=== PATIENT | female | born 1945 | race Caucasian/White ===

== ENCOUNTER 2016-07-08 09:13 | Day surgery (SDC) | payer MEDICARE ==
[2016-07-03 11:29] VITALS: BMI 39.0
[~2016-07-08 09:13] MED LIST: LACTATED RINGERS 1,000 ML IV SCH; LIDOCAINE 1% 20 ML VIAL (10MG/ML) FOR IV START INTRADERMA PRN
[2016-07-08 10:21] VITALS: RESP 18; TEMP 98
[2016-07-08] MEDS ORDERED: LACTATED RINGERS 1,000 ML IV ONE (10:21)
[2016-07-08] MEDS ORDERED: LIDOCAINE 1% 20 ML VIAL (10MG/ML) FOR IV START INTRADERMA ONE (10:21)
[2016-07-08 10:47] LABS: Glucose,Whole Blood 94 mg/dL (75-99)
[2016-07-08] MEDS ORDERED: PROPOFOL 10 MG/ML 20 ML VIAL IV ONE (10:48)
[2016-07-08] MEDS ORDERED: LIDOCAINE 1% INJ 10MG/ML (20 ML MDV) ONE (10:48)
--- NOTE | 2016-07-08 11:02 | P.PCN ---
Date of Procedure: 07/08/16 Procedure(s) Performed: BRIEF HISTORY: Patient is a 70-year-old, pleasant, white female scheduled for an upper endoscopy as a part of evaluation of long-standing history of GERD and dysphagia to solids intermittently for the last 2 months duration. She has been on Prilosec 20 mg twice daily despite which remains symptomatic. Hence she is scheduled for an upper endoscopy with possible dilation today. PROCEDURE PERFORMED: Esophagogastroduodenoscopy with biopsy. PREOPERATIVE DIAGNOSIS: GERD/Dysphagia. IV sedation per anesthesia. PROCEDURE: After informed consent was obtained, the patient was brought into the endoscopy unit. IV sedation was administered by Anesthesia under continuous monitoring. Initially the Olympus GIF-140 video endoscope was inserted into the mouth. Esophagus intubated without any difficulty. It was gradually advanced into the stomach and duodenum and carefully examined. The bulb and the second part of the duodenum appeared normal. The scope at this time was withdrawn to the stomach, adequately insufflated with air, and upon careful examination, mucosa of the antrum had mild gastritis and biopsies were done from this area. The body, cardia and the fundus appeared normal. The scope was then withdrawn into the esophagus. The GE junction was located at 39 cm from the incisors. The esophagus appeared normal. There were no erosions or ulcerations seen. There was no evidence of esophageal stricture. Biopsies were done from the distal esophagus and the patient tolerated the procedure well. IMPRESSION: 1. Normal-appearing esophagus with no evidence of esophagitis or esophageal stricture. 2. Mild antral gastritis. RECOMMENDATIONS: The findings of this examination were discussed with the patient as well as a family. She was advised to follow with the biopsy results. She will continue with omeprazole 20 mg twice daily and follow antireflux measures.
[2016-07-08 11:31] LABS: Glucose,Whole Blood 91 mg/dL (75-99)
[2016-07-08 11:51] VITALS: BP 136/78; PULSE 69
== END 2016-07-08 12:12 | disposition home or self-care (01) ==
LOC: ORWHC2ENDO 09:13
PROVIDERS: ATTEND Internal Medicine Gastroenterology
DX: K21.0 Gastro-esophageal reflux disease with esophagitis (principal); K29.50 Unspecified chronic gastritis without bleeding; R13.10 Dysphagia, unspecified; I11.0 Hypertensive heart disease with heart failure; I50.9 Heart failure, unspecified; F32.9 Major depressive disorder, single episode, unspecified; Z79.82 Long term (current) use of aspirin; Z79.01 Long term (current) use of anticoagulants; Z79.891 Long term (current) use of opiate analgesic; Z79.899 Other long term (current) drug therapy; Z88.6 Allergy status to analgesic agent; Z88.1 Allergy status to other antibiotic agents; Z88.5 Allergy status to narcotic agent; Z88.8 Allergy status to other drugs, medicaments and biological substances
CPT/HCPCS: 88305; 88342; 43239; J2001; J2704

== ENCOUNTER → 2016-08-05 | Outpatient (CLI) | payer MEDICARE ==
[~2016-08-05] MED LIST changes: +DENOSUMAB 60 MG/ML 1 ML SYRINGE SQ ONE; -LACTATED RINGERS 1,000 ML IV SCH; -LIDOCAINE 1% 20 ML VIAL (10MG/ML) FOR IV START INTRADERMA PRN
[2016-08-05 15:13] VITALS: BP 136/74; PULSE 60; RESP 16; TEMP 98.5
== END | disposition home or self-care (01) ==
LOC: PROCWHC3 14:21
PROVIDERS: ATTEND Internal Medicine
DX: M81.0 Age-related osteoporosis without current pathological fracture (principal)
CPT/HCPCS: 96372; J0897

== ENCOUNTER → 2016-09-25 | Outpatient (CLI) | payer MEDICARE ==
--- NOTE | 2016-09-25 13:43 | US ---
EXAMINATION TYPE: US kidneys/renal and bladder DATE OF EXAM: 09/25/2016 COMPARISON: US CLINICAL HISTORY: M54 Back Pain. EXAM MEASUREMENTS: Right Kidney: 10.1 x 3.3 x 4.5 cm Left Kidney: 10.3 x 4.2 x 3.5 cm Right Kidney: No hydronephrosis or masses seen Left Kidney: No hydronephrosis or masses seen Bladder: wnl Bilateral Jets seen: Yes There is no evidence for hydronephrosis at this point in time. No nephrolithiasis is seen. No anaid s are identified. The urinary bladder is anechoic. Bilateral ureteral jets are seen. IMPRESSION: No distinct abnormality seen
--- NOTE | 2016-09-25 14:20 | US ---
EXAMINATION TYPE: US pelvic limited DATE OF EXAM: 09/25/2016 COMPARISON: NONE CLINICAL HISTORY: R10.2 Pelvic Pain. Partial hystectomy 1985. No abnormalities visualized. Bilateral ovaries not seen due to bowel gas. Hysterectomy changes are noted. No evidence for vaginal cuff mass. The ovaries are poorly visualized. No adnexal masses seen. IMPRESSION: Postoperative changes of the pelvis
== END | disposition home or self-care (01) ==
LOC: RADUSWWP 11:36
PROVIDERS: ATTEND Internal Medicine
DX: M54.9 Dorsalgia, unspecified (principal); R10.2 Pelvic and perineal pain; Z90.710 Acquired absence of both cervix and uterus
CPT/HCPCS: 76770; 76857

== ENCOUNTER 2017-01-10 13:53 | Emergency (ER) | payer MEDICARE ==
[2017-01-10 14:06] VITALS: BP 122/63; PULSE 78; RESP 18; TEMP 97.8
--- NOTE | 2017-01-10 14:50 | XR ---
EXAMINATION TYPE: XR foot complete LT DATE OF EXAM: 01/10/2017 CLINICAL HISTORY: Trauma injury 2 days ago with pain and swelling. TECHNIQUE: Frontal, lateral, and oblique images of the left foot are obtained. COMPARISON: None FINDINGS: Osseous structures are demineralized which is noted to lower radiographic sensitivity. The re is mild to moderate diffuse subcutaneous edema with more focal severe soft tissue swelling along d orsal surface midfoot level overlying the metatarsals. No acute fracture or dislocation is clearly ev ident. Some flexion in the toes makes evaluation at this level suboptimal. There is moderate to large size inferior calcaneal spur. There is cystic change probable geode in the middle cuneiform noted. IMPRESSION: There is no acute fracture or dislocation in the left foot.
--- NOTE | 2017-01-10 15:15 | ED ---
Lower Extremity Injury HPI - General Chief Complaint: Extremity Injury, Lower Stated Complaint: Foot Injury Time Seen by Provider: 01/10/17 14:07 Source: patient Mode of arrival: EMS Limitations: no limitations - History of Present Illness Initial Comments: Patient is a 71-year-old female presenting to the emergency department with chief complaint of left foot pain. Patient states she dropped a digital camera on her foot 4 days ago and has been having pain and swelling to her dorsal left foot since. Patient states that she is normally wheelchair- bound but is able to pivot. Patient states it hurts to put pressure on her left forefoot but she is able to ambulate standing on her heel. Patient reports previous history of fracture to her left great toe and second toe. MD Complaint: foot injury (Left dorsal midfoot ) Type of Injury: blunt Place: home Severity: moderate Severity scale (1-10): 5 Improves With: immobilization Worsens With: weight bearing, palpation Context: direct blow Associated Symptoms: swelling, able to partially bear weight Treatments Prior to Arrival: cold therapy - Related Data Home Medications Medication Instructions Recorded Confirmed Allopurinol [Zyloprim] 300 mg PO DAILY 08/21/14 07/03/16 Aspirin EC [Ecotrin] 325 mg PO DAILY 08/21/14 07/03/16 Calcium Carbonate/Vitamin D3 1 tab PO BID 08/21/14 07/08/16 [Calcium 600-Vit D3 400 Tablet] Cyclobenzaprine [Flexeril] 10 mg PO TID PRN 08/21/14 07/03/16 Furosemide [Lasix] 40 mg PO DAILY 08/21/14 07/03/16 LORazepam [Ativan] 0.5 mg PO BID 08/21/14 07/03/16 Omeprazole [PriLOSEC] 20 mg PO AC-BID 08/21/14 07/03/16 PARoxetine HCL [Paxil] 30 mg PO BID 08/21/14 07/03/16 Potassium Chloride [Klor-Con 20] 20 meq PO DAILY 08/21/14 07/03/16 diphenhydrAMINE HCL [Benadryl] 25 mg PO HS 08/21/14 07/03/16 Lisinopril [Zestril] 20 mg PO 0800,1600 11/17/15 07/03/16 Metoprolol Tartrate [Lopressor] 25 mg PO BID 11/17/15 07/03/16 Morphine Sulfate ER [Ms Contin] 30 mg PO BID 11/17/15 07/03/16 Multivitamins, Thera [Multivitamin 1 tab PO DAILY 11/17/15 07/03/16 (formulary)] Vit A/Vit C/Vit E/Zinc/Copper 1 cap PO DAILY 11/17/15 07/08/16 [ICAPS SOFTGEL] Denosumab [Prolia] 60 mg SQ Q180D 07/03/16 07/03/16 Warfarin [Coumadin] 2.5 mg PO Q2D 07/03/16 07/03/16 amLODIPine [Norvasc] 5 mg PO QAM 07/03/16 07/03/16 Allergies Allergy/AdvReac Type Severity Reaction Status Date / Time adhesive Allergy Rash/Hives Verified 01/10/17 14:06 carbamazepine [From Tegretol] Allergy Rash/Hives Verified 01/10/17 14:06 carisoprodol [From Soma] Allergy lowers b/p Verified 01/10/17 14:06 quickly & passes out doxycycline calcium Allergy Rash/Hives Verified 01/10/17 14:06 [From Vibramycin] doxycycline hyclate Allergy Rash/Hives,vomited Verified 01/10/17 14:06 [From Vibramycin] blood doxycycline monohydrate Allergy Rash/Hives,vomited Verified 01/10/17 14:06 [From Vibramycin] blood erythromycin base Allergy Rash/Hives,vomited Verified 01/10/17 14:06 [From E-Mycin] blood hydrocodone bitartrate Allergy abdominal Verified 01/10/17 14:06 [From Vicodin] pain, diarrhea NSAIDS (Non-Steroidal Allergy Swelling Verified 01/10/17 14:06 Anti-Inflamma piroxicam [From Feldene] Allergy Swelling Verified 01/10/17 14:06 corn [Percival] AdvReac Diarrhea Verified 01/10/17 14:06 milk AdvReac Diarrhea Verified 01/10/17 14:06 wheat AdvReac Diarrhea Verified 01/10/17 14:06 Review of Systems ROS Statement: Those systems with pertinent positive or pertinent negative responses have been documented in the HPI. ROS Other: All systems not noted in ROS Statement are negative. Past Medical History Past Medical History: Eye Disorder, GERD/Reflux, Hypertension, Osteoarthritis ( OA), Pulmonary Embolus (PE) Additional Past Medical History / Comment(s): vomiting after swallowing,DDD, GASTROENTERITIS, H-PYLORI,GOUT,TMJ,BULGING DISCS, left eye blindness-macular degeneration los eyes, HX MULTIPLE FALLS-able to stand to transfer w/ walker, chronic UTIs,osteoporosis,hypoglycemia History of Any Multi-Drug Resistant Organisms: VRE Date of last positivie culture/infection: Knee wound august 2013 MDRO Source:: R knee Past Surgical History: Hysterectomy, Joint Replacement, Orthopedic Surgery, Tubal Ligation Additional Past Surgical History / Comment(s): STERNOCLEIDOMASTOIDECTOMY(RT), RT SHOULDER ROTATOR CUFF, RECTOCELE/CYSTOCELE, RT FOOT-DOWELL'S NEUROMA/HAMMER TOE, LT OUTER FOREARM ARTHROCOPE AND SHORTENING LEFT ULNA-PLATE AND SCREWS INSERTED, RT. WRIST BUNDLE OF NERVES , RT KNee ARTHROSCOP/REALIGNMENT OF TENDON/TIBIA/KNEE CAP,,07-20-13 RT KNEE REPLACEMENT THEN 08-10-13 LARGE HEMATOMA REMOVED,LOS VITRECTOMIES,LOS CATARACT, RT FEMUR. BENIGN TUMOR REMOVED, LT FOOT BONE SPUR Past Anesthesia/Blood Transfusion Reactions: Previous Problems w/ Anesthesia, Postoperative Nausea & Vomiting (PONV) Additional Past Anesthesia/Blood Transfusion Reaction / Comment(s): no complications with prior blood transfusion Past Psychological History: Anxiety, Depression Smoking Status: Never smoker - Past Family History Brother(s) Family Medical History: Cancer, Congestive Heart Failure (CHF) Additional Family Medical History / Comment(s): heart problems,CABG,oral CA, pacemaker/defib Father Family Medical History: Congestive Heart Failure (CHF), Hyperlipidemia, Hypertension, Myocardial Infarction (NC) Mother Family Medical History: Congestive Heart Failure (CHF) Additional Family Medical History / Comment(s): PACEMAKER living at age 93 General Exam Limitations: no limitations General appearance: alert, in no apparent distress Head exam: Present: atraumatic, normocephalic, normal inspection Eye exam: Present: normal appearance ENT exam: Present: normal exam, mucous membranes moist, normal external ear exam Neck exam: Present: normal inspection, full ROM. Absent: tenderness, lymphadenopathy Respiratory exam: Present: normal lung sounds bilaterally. Absent: respiratory distress, wheezes, rales, rhonchi, chest wall tenderness Cardiovascular Exam: Present: regular rate, normal rhythm, normal heart sounds. Absent: systolic murmur GI/Abdominal exam: Present: soft, normal bowel sounds. Absent: distended, tenderness Left Lower Leg exam: Present: normal inspection, full ROM. Absent: tenderness, swelling Ankle exam: Present: normal inspection, full ROM. Absent: tenderness, swelling Foot/Toe exam: Present: full ROM, tenderness, swelling. Absent: ecchymosis, calcaneal tenderness, tenderness at base of 5th metatarsal Neurovascular tendon exam: Present: no vascular compromise. Absent: pulse deficit, abnormal cap refill, motor deficit, sensory deficit, tendon deficit, extremity cold to touch, abnormal 2-point discrimination, decreased fine/light touch, foot drop, significant pain with passive ROM of distal joint Gait: observed and limited by pain Neurological exam: Present: alert, oriented X3, CN II-XII intact. Absent: motor sensory deficit (No focal deficits noted.) Psychiatric exam: Present: normal affect, normal mood Skin exam: Present: warm, dry, intact Course Vital Signs 01/10/17 14:03 Temperature 97.8 F Pulse Rate 78 Respiratory 18 Rate Blood Pressure 122/63 O2 Sat by Pulse 97 Oximetry Medical Decision Making - Medical Decision Making Left foot contusion. X-ray without evidence of acute fracture or dislocation. Michael wrap applied. Patient instructed to follow-up with [facility] if pain persists. Patient agrees with treatment plan. - Radiology Data Radiology results: report reviewed X-ray left foot: No acute fracture or dislocation. Mild to moderate diffuse subcutaneous edema with more focal severe soft tissue swelling along the dorsal surface midfoot level overlying the metatarsals. Disposition Clinical Impression: Contusion of left foot Disposition: HOME SELF-CARE Condition: Good Instructions: Foot Contusion (ED) Additional Instructions: Apply ice to left foot 3-4 times a day alternating with heat, elevate as much as possible, continue Motrin or Tylenol for pain. Follow-up with orthopedic service and primary care physician as directed. Please return to the emergency department with any new worsening symptoms. Referrals: Gage Gastelum MD [Primary Care Provider] - 1-2 days Gabriel Rodriguez DO [Doctor of Osteopathic Medicine] - 1-2 days Time of Disposition: 15:14
== END 2017-01-10 15:47 | disposition home or self-care (01) ==
LOC: EC 13:53
DX: S90.32XA Contusion of left foot, initial encounter (principal); K21.9 Gastro-esophageal reflux disease without esophagitis; I10 Essential (primary) hypertension; M19.90 Unspecified osteoarthritis, unspecified site; Z86.711 Personal history of pulmonary embolism; F32.9 Major depressive disorder, single episode, unspecified; F41.9 Anxiety disorder, unspecified; Z79.82 Long term (current) use of aspirin; Z79.891 Long term (current) use of opiate analgesic; Z79.01 Long term (current) use of anticoagulants; Z79.899 Other long term (current) drug therapy; Z88.1 Allergy status to other antibiotic agents; Z91.011 Allergy to milk products; Z91.018 Allergy to other foods; Z88.5 Allergy status to narcotic agent; Z88.6 Allergy status to analgesic agent; Z88.8 Allergy status to other drugs, medicaments and biological substances; Z91.048 Other nonmedicinal substance allergy status; W22.8XXA Striking against or struck by other objects, initial encounter
CPT/HCPCS: 99283

== ENCOUNTER → 2017-10-01 | Outpatient (CLI) | payer MEDICARE ==
[2017-10-01 13:53] VITALS: BP 130/74; PULSE 62; RESP 16; TEMP 98
== END ==
LOC: PROCWHC3 13:21
PROVIDERS: ATTEND Internal Medicine
DX: M81.0 Age-related osteoporosis without current pathological fracture (principal)
CPT/HCPCS: 96372; J0897

== ENCOUNTER → 2017-11-15 | Outpatient (CLI) | payer MEDICARE ==
--- NOTE | 2017-11-15 14:59 | XR ---
EXAMINATION TYPE: XR wrist complete RT, XR hand complete RT DATE OF EXAM: 11/15/2017 CLINICAL HISTORY: Hitting injury with pain TECHNIQUE: Frontal, lateral, and oblique images of the right hand and wrist are obtained. Fourth sca phoid view right wrist is acquired. COMPARISON: None FINDINGS: Demineralization is present. There is no acute fracture/dislocation evident in the right w rist. Subchondral cystic change in the lunate bone is present. There is moderate joint space with mil d osteophyte formation at distal scaphoid articulation with the trapezium. The overlying soft tissue appears unremarkable. Images of right hand show lateral positioning or subluxation with narrowing and subchondral cystic ch delmis at third PIP joint with moderate focal soft tissue swelling. There is additional mild to moderat e soft tissue swelling throughout the PIP joints. There is moderate narrowing third DIP joint. There is slight medial positioning of distal phalanx at the fifth DIP joint. Mild spurring joint space loss at base of first metacarpal is present. There is relative preservation metacarpal phalangeal joints. IMPRESSION: There is no acute fracture or dislocation in the right hand or wrist. Chronic changes no yogi as detailed above.
== END | disposition home or self-care (01) ==
LOC: RADXRMAIN 14:17
PROVIDERS: ATTEND Internal Medicine
DX: M25.841 Other specified joint disorders, right hand (principal)

== ENCOUNTER 2018-02-01 22:15 | Inpatient (IN) | payer MEDICARE ==
[2018-02-01] MEDS ORDERED: ACETAMINOPHEN TAB 325 MG TAB PO STA (22:28)
[2018-02-01] MEDS: SODIUM CHLORIDE 0.9% 500 ML 500 ML IV SCH (22:51)
[2018-02-01 23:05] LABS: Basophils % (A) 0 %; Eosinophils # (A) 0.1 k/uL (0-0.7); Eosinophils % (A) 1 %; HCT 38.4 % (34.0-46.0); HGB 12.7 gm/dL (11.4-16.0); Lymphocytes # (A) 1.2 k/uL (1.0-4.8); Lymphocytes % (A) 13 %; MCH 31.5 pg (25.0-35.0); MCHC 33.1 g/dL (31.0-37.0); MCV 95.2 fL (80.0-100.0); Mean Platelet Volume 6.6; Monocytes # (A) 0.5 k/uL (0-1.0); Monocytes % (A) 6 %; Neutrophils % (A) 78 %; Platelet Count 277 k/uL (150-450); RBC 4.03 m/uL (3.80-5.40); RDW 14.3 % (11.5-15.5)
--- NOTE | 2018-02-01 23:06 | ED ---
Extremity Problem HPI - General Chief complaint: Extremity Problem,Nontraumatic Stated complaint: Leg pain Time Seen by Provider: 02/01/18 22:28 Source: patient, EMS Mode of arrival: EMS Limitations: no limitations - History of Present Illness Initial comments: Maria Teresa is a 72-year-old morbidly obese, minimally mobile female who presents the emergency department today for evaluation of redness and swelling of her right lower extremity. Patient reports she started having some discomfort in the right lower extremity last week, she is evaluated by her primary care physician and given an topical lotion for treatment. She reports that since that time the leg is become more tender, and red. Today she noticed that it appeared to be infected, and addition she developed a fever and was feeling unwell. Bedtime decision was made to transfer her to the ER for further evaluation and management. She is a very complicated orthopedic history including any replacement to the right knee with multiple subsequent repeat surgeries due to infection, and decreased ability to ambulate secondary to the complicated surgeries. Surgeries occurred in 2013. Patient has had decreased mobility since that time. - Related Data Home Medications Medication Instructions Recorded Confirmed Allopurinol [Zyloprim] 300 mg PO DAILY 08/21/14 02/01/18 Aspirin EC [Ecotrin] 325 mg PO DAILY 08/21/14 02/01/18 Calcium Carbonate/Vitamin D3 1 tab PO BID 08/21/14 02/01/18 [Calcium 600-Vit D3 400 Tablet] Furosemide [Lasix] 40 mg PO DAILY 08/21/14 02/01/18 LORazepam [Ativan] 0.5 mg PO BID 08/21/14 02/01/18 Potassium Chloride [Klor-Con 20] 20 meq PO DAILY 08/21/14 02/01/18 diphenhydrAMINE HCL [Benadryl] 25 mg PO HS 08/21/14 02/01/18 Lisinopril [Zestril] 20 mg PO BID@0800,1600 11/17/15 02/01/18 Metoprolol Tartrate [Lopressor] 25 mg PO BID 11/17/15 02/01/18 Multivitamins, Thera [Multivitamin 1 tab PO DAILY 11/17/15 02/01/18 (formulary)] Vit A/Vit C/Vit E/Zinc/Copper 1 cap PO DAILY 11/17/15 02/01/18 [ICAPS SOFTGEL] Denosumab [Prolia] 60 mg SQ Q180D 07/03/16 02/01/18 Warfarin [Coumadin] 2.5 mg PO Q48H 07/03/16 02/01/18 amLODIPine [Norvasc] 5 mg PO QAM 07/03/16 02/01/18 Famotidine [Pepcid] 20 mg PO BID 02/01/18 02/01/18 Ibuprofen [Motrin] 400 mg PO Q6HR PRN 02/01/18 02/01/18 Morphine Sulfate ER [Ms Contin] 30 mg PO Q12HR 02/01/18 02/01/18 Pantoprazole [Protonix] 40 mg PO BID 02/01/18 02/01/18 Allergies Allergy/AdvReac Type Severity Reaction Status Date / Time adhesive Allergy Rash/Hives Verified 02/01/18 22:34 carbamazepine [From Tegretol] Allergy Rash/Hives Verified 02/01/18 22:34 carisoprodol [From Soma] Allergy lowers b/p Verified 02/01/18 22:34 quickly & passes out doxycycline calcium Allergy Rash/Hives Verified 02/01/18 22:34 [From Vibramycin] doxycycline hyclate Allergy Rash/Hives,vomited Verified 02/01/18 22:34 [From Vibramycin] blood doxycycline monohydrate Allergy Rash/Hives,vomited Verified 02/01/18 22:34 [From Vibramycin] blood erythromycin base Allergy Rash/Hives,vomited Verified 02/01/18 22:34 [From E-Mycin] blood hydrocodone bitartrate Allergy abdominal Verified 02/01/18 22:34 [From Vicodin] pain, diarrhea NSAIDS (Non-Steroidal Allergy Swelling Verified 02/01/18 22:34 Anti-Inflamma piroxicam [From Feldene] Allergy Swelling Verified 02/01/18 22:34 ciprofloxacin [From Cipro] AdvReac Nausea & Verified 02/01/18 22:34 Vomiting corn [[place]] AdvReac Diarrhea Verified 02/01/18 22:34 milk AdvReac Diarrhea Verified 02/01/18 22:34 wheat AdvReac Diarrhea Verified 02/01/18 22:34 Review of Systems ROS Statement: Those systems with pertinent positive or pertinent negative responses have been documented in the HPI. ROS Other: All systems not noted in ROS Statement are negative. Past Medical History Past Medical History: Eye Disorder, GERD/Reflux, Hypertension, Osteoarthritis ( OA), Pulmonary Embolus (PE) Additional Past Medical History / Comment(s): vomiting after swallowing,DDD, GASTROENTERITIS, H-PYLORI,GOUT,TMJ,BULGING DISCS, left eye blindness-macular degeneration los eyes, HX MULTIPLE FALLS-able to stand to transfer w/ walker, chronic UTIs,osteoporosis,hypoglycemia History of Any Multi-Drug Resistant Organisms: VRE Date of last positivie culture/infection: Knee wound august 2013 MDRO Source:: R knee Past Surgical History: Hysterectomy, Joint Replacement, Orthopedic Surgery, Tubal Ligation Additional Past Surgical History / Comment(s): STERNOCLEIDOMASTOIDECTOMY(RT), RT SHOULDER ROTATOR CUFF, RECTOCELE/CYSTOCELE, RT FOOT-DOWELL'S NEUROMA/HAMMER TOE, LT OUTER FOREARM ARTHROCOPE AND SHORTENING LEFT ULNA-PLATE AND SCREWS INSERTED, RT. WRIST BUNDLE OF NERVES , RT KNee ARTHROSCOP/REALIGNMENT OF TENDON/TIBIA/KNEE CAP,,07-20-13 RT KNEE REPLACEMENT THEN 08-10-13 LARGE HEMATOMA REMOVED,LOS VITRECTOMIES,LOS CATARACT, RT FEMUR. BENIGN TUMOR REMOVED, LT FOOT BONE SPUR Past Anesthesia/Blood Transfusion Reactions: Previous Problems w/ Anesthesia, Postoperative Nausea & Vomiting (PONV) Additional Past Anesthesia/Blood Transfusion Reaction / Comment(s): no complications with prior blood transfusion Past Psychological History: Anxiety, Depression Smoking Status: Never smoker Past Alcohol Use History: None Reported Past Drug Use History: None Reported - Past Family History Brother(s) Family Medical History: Cancer, Congestive Heart Failure (CHF) Additional Family Medical History / Comment(s): heart problems,CABG,oral CA, pacemaker/defib Father Family Medical History: Congestive Heart Failure (CHF), Hyperlipidemia, Hypertension, Myocardial Infarction ([place]) Mother Family Medical History: Congestive Heart Failure (CHF) Additional Family Medical History / Comment(s): PACEMAKER living at age 93 General Exam - General Exam Comments Initial Comments: GENERAL: Patient is well-developed and well-nourished. Patient appears flushed and is warm to the touch HENT: Normocephalic, Atraumatic. Neck is soft and supple. No significant lymphadenopathy is noted. Oropharynx is clear. Moist mucous membranes. Neck has full range of motion without eliciting any pain. EYES: The sclera were anicteric and conjunctiva were pink and moist. PULMONARY: Unlabored respirations. Decreased breath sounds bilateral bases secondary to body habitus CARDIOVASCULAR: There is a regular rate and rhythm ABDOMEN: Soft and nontender with normal bowel sounds. SKIN: Right lower extremity with erythema and induration, abscess petechia present, cellulitis is circumferential of the lower two thirds of the calf NEUROLOGIC: Patient is alert and oriented x3. MUSCULOSKELETAL: Decreased range of motion of bilateral lower extremity secondary to osteoarthritis and chronic pain LYMPHATICS: No significant lymphadenopathy is noted PSYCHIATRIC: Normal psychiatric evaluation. Limitations: no limitations Limitations: no limitations Course Vital Signs 02/01/18 02/01/18 22:18 23:34 Temperature 100.6 F H Pulse Rate 89 80 Respiratory 16 16 Rate Blood Pressure 137/79 142/73 O2 Sat by Pulse 94 L 93 L Oximetry Medical Decision Making - Medical Decision Making The patient was seen and evaluated, history was obtained from the patient and review of medical record. Physical exam reveals cellulitis is line review of vital signs reveal that the patient is febrile, HR in 80-90s but patient is on lopressor, patient does report that her last Tylenol was 1000 mg at 4 PM. A sepsis workup was ordered Borders of cellulitis marked Urinalysis did reveal urinary tract infection, patient has been treated with broad-spectrum antibiotics for her cellulitis. Labs with no significant abnormalities, however given the patient's multiple comorbidities, presence of lymphedema, and vital signs upon arrival I do feel she warrants admission for further monitoring. Patient care was discussed with her primary care physician Dr. Gastelum who accepts the admission for sepsis secondary to cellulitis. - Lab Data Result diagrams: 02/01/18 22:40 02/01/18 22:40 Lab Results 02/01/18 02/01/18 02/01/18 Range/Units 22:36 22:40 22:40 WBC 9.0 (3.8-10.6) k/uL RBC 4.03 (3.80-5.40) m/uL Hgb 12.7 (11.4-16.0) gm/dL Hct 38.4 (34.0-46.0) % MCV 95.2 (80.0-100.0) fL MCH 31.5 (25.0-35.0) pg MCHC 33.1 (31.0-37.0) g/dL RDW 14.3 (11.5-15.5) % Plt Count 277 (150-450) k/uL Neutrophils % 78 % Lymphocytes % 13 % Monocytes % 6 % Eosinophils % 1 % Basophils % 0 % Neutrophils # 7.0 (1.3-7.7) k/uL Lymphocytes # 1.2 (1.0-4.8) k/uL Monocytes # 0.5 (0-1.0) k/uL Eosinophils # 0.1 (0-0.7) k/uL Basophils # 0.0 (0-0.2) k/uL PT (9.0-12.0) sec INR (<1.2) APTT (22.0-30.0) sec Sodium 138 (137-145) mmol/L Potassium 3.9 (3.5-5.1) mmol/L Chloride 101 (98-107) mmol/L Carbon Dioxide 28 (22-30) mmol/L Anion Gap 9 mmol/L BUN 15 (7-17) mg/dL Creatinine 0.87 (0.52-1.04) mg/dL Est GFR (CKD-EPI)AfAm 77 (>60 ml/min/1.73 sqM) Est GFR (CKD-EPI)NonAf 67 (>60 ml/min/1.73 sqM) Glucose 99 (74-99) mg/dL Plasma Lactic Acid Ananth (0.7-2.0) mmol/L Calcium 9.0 (8.4-10.2) mg/dL Total Bilirubin 0.5 (0.2-1.3) mg/dL AST 23 (14-36) U/L ALT 19 (9-52) U/L Alkaline Phosphatase 90 (38-126) U/L Total Creatine Kinase (30-135) U/L CK-MB (CK-2) (0.0-2.4) ng/mL CK-MB (CK-2) Rel Index Troponin I (0.000-0.034) ng/mL Total Protein 7.1 (6.3-8.2) g/dL Albumin 4.0 (3.5-5.0) g/dL Urine Color Yellow Urine Appearance Cloudy H (Clear) Urine pH 6.5 (5.0-8.0) Ur Specific [place] 1.018 (1.001-1.035) Urine Protein Negative (Negative) Urine Glucose (UA) Negative (Negative) Urine Ketones Negative (Negative) Urine Blood Trace H (Negative) Urine Nitrite Positive H (Negative) Urine Bilirubin Negative (Negative) Urine Urobilinogen <2.0 (<2.0) mg/dL Ur Leukocyte Esterase Moderate H (Negative) Urine RBC 3 (0-5) /hpf Urine WBC 20 H (0-5) /hpf Ur Squamous Epith Cells 2 (0-4) /hpf Urine Bacteria Occasional H (None) /hpf 02/01/18 02/01/18 02/01/18 Range/Units 22:40 22:40 22:40 WBC (3.8-10.6) k/uL RBC (3.80-5.40) m/uL Hgb (11.4-16.0) gm/dL Hct (34.0-46.0) % MCV (80.0-100.0) fL MCH (25.0-35.0) pg MCHC (31.0-37.0) g/dL RDW (11.5-15.5) % Plt Count (150-450) k/uL Neutrophils % % Lymphocytes % % Monocytes % % Eosinophils % % Basophils % % Neutrophils # (1.3-7.7) k/uL Lymphocytes # (1.0-4.8) k/uL Monocytes # (0-1.0) k/uL Eosinophils # (0-0.7) k/uL Basophils # (0-0.2) k/uL PT 16.1 H (9.0-12.0) sec INR 1.8 H (<1.2) APTT 31.5 H (22.0-30.0) sec Sodium (137-145) mmol/L Potassium (3.5-5.1) mmol/L Chloride (98-107) mmol/L Carbon Dioxide (22-30) mmol/L Anion Gap mmol/L BUN (7-17) mg/dL Creatinine (0.52-1.04) mg/dL Est GFR (CKD-EPI)AfAm (>60 ml/min/1.73 sqM) Est GFR (CKD-EPI)NonAf (>60 ml/min/1.73 sqM) Glucose (74-99) mg/dL Plasma Lactic Acid [place] 1.3 (0.7-2.0) mmol/L Calcium (8.4-10.2) mg/dL Total Bilirubin (0.2-1.3) mg/dL AST (14-36) U/L ALT (9-52) U/L Alkaline Phosphatase (38-126) U/L Total Creatine Kinase 39 (30-135) U/L CK-MB (CK-2) <0.2 (0.0-2.4) ng/mL CK-MB (CK-2) Rel Index Troponin I <0.012 (0.000-0.034) ng/mL Total Protein (6.3-8.2) g/dL Albumin (3.5-5.0) g/dL Urine Color Urine Appearance (Clear) Urine pH (5.0-8.0) Ur Specific [place] (1.001-1.035) Urine Protein (Negative) Urine Glucose (UA) (Negative) Urine Ketones (Negative) Urine Blood (Negative) Urine Nitrite (Negative) Urine Bilirubin (Negative) Urine Urobilinogen (<2.0) mg/dL Ur Leukocyte Esterase (Negative) Urine RBC (0-5) /hpf Urine WBC (0-5) /hpf Ur Squamous Epith Cells (0-4) /hpf Urine Bacteria (None) /hpf - EKG Data -: EKG Interpreted by Me EKG Comments: EKG obtained at 11 PM, rate is 89, rhythm is sinus, is normal axis, normal intervals, no acute ST elevations or depressions no evidence of acute ischemia or infarction. Disposition Clinical Impression: Cellulitis, Lower extremity edema, Inability to ambulate due to knee, UTI ( urinary tract infection) Disposition: ADMITTED IP TO THIS HOSP Referrals: Gage Gastelum MD [Primary Care Provider] - 1-2 days
[2018-02-01] MEDS ORDERED: VANCOMYCIN IV PER PHARMACY 1 EACH MISC MISCELLANE PRN (23:08)
[2018-02-01] MEDS ORDERED: CEFEPIME 2 GM in SODIUM CHLORIDE 0.9% 50 ML IVPB STA (23:08)
[2018-02-01] MEDS ORDERED: VANCOMYCIN 1,750 MG in SODIUM CHLORIDE 0.9% 500 ML 500 ML IVPB STA (23:10)
[2018-02-01 23:13] LABS: Appearance,Urine Cloudy (Clear); Bacteria,Urine Occasional /hpf; Bilirubin,Urine Negative (Negative); Blood,Urine Trace (Negative); Color,Urine Yellow; Glucose,Urine (UA) Negative (Negative); Ketones,Urine Negative (Negative); Leukocyte Esterase,Urine Moderate (Negative); Nitrite,Urine Positive (Negative); PH, Urine 6.5 (5.0-8.0); Protein,Urine Negative (Negative); RBC,Urine 3 /hpf (0-5); Specific Gravity,Urine 1.018 (1.001-1.035); Squamous Epithelial Cell,Urine 2 /hpf (0-4); Urobilinogen,Urine <2.0 mg/dL (<2.0); WBC,Urine 20 /hpf (0-5)
[2018-02-01 23:17] LABS: INR 1.8 (<1.2); Partial Thromboplastin Time 31.5 sec (22.0-30.0); Prothrombin Time 16.1 sec (9.0-12.0)
[2018-02-01 23:26] LABS: Potassium 3.9 mmol/L (3.5-5.1)
[2018-02-01 23:27] LABS: Total Bilirubin 0.5 mg/dL (0.2-1.3); Total Protein 7.1 g/dL (6.3-8.2)
[2018-02-01 23:35] LABS: Creatine Kinase 39 U/L (30-135)
[2018-02-01 23:49] LABS: Creatine Kinase MB <0.2 ng/mL (0.0-2.4); Troponin I <0.012 ng/mL (0.000-0.034)
--- NOTE | 2018-02-02 00:06 | XR ---
EXAMINATION TYPE: XR chest 2V DATE OF EXAM: 02/01/2018 COMPARISON: 01/21/2017 HISTORY: Pain and swelling TECHNIQUE: Frontal and lateral views of the chest are obtained. FINDINGS: Heart is enlarged. There is no heart failure. Costophrenic angles are clear. Thoracic aort a is atheromatous. There are chest leads. There is spurring in the thoracic spine. IMPRESSION: No active cardiopulmonary disease. Cardiomegaly. There is clearing of the pleural reacti on and fluid at the lung bases compared to old exam.
[2018-02-02] MEDS: SODIUM CHLORIDE 0.9% 1,000 ML IV SCH ×3 (01:02→21:00)
[2018-02-02 04:12] VITALS: BMI 42.3
[2018-02-02] MEDS: ACETAMINOPHEN TAB 325 MG TAB PO PRN ×3 (06:14→21:04)
[2018-02-02] MEDS ORDERED: LOPERAMIDE 2 MG CAP PO PRN (08:13)
[2018-02-02] MEDS ORDERED: ACETAMINOPHEN TAB 325 MG TAB PO PRN (08:13)
[2018-02-02] MEDS ORDERED: WARFARIN 2.5 MG TAB PO SCH (08:15)
[2018-02-02] MEDS: CALCIUM CARB-VIT D 500MG-200UN 1 EACH TAB PO SCH ×2 (09:05→21:58)
[2018-02-02] MEDS: ISOSORBIDE MONONITRATE ER 30 MG TAB.ER.24H PO SCH (09:05)
[2018-02-02] MEDS: FUROSEMIDE 40 MG TAB PO SCH (09:05)
[2018-02-02] MEDS: ASPIRIN 325 MG TAB PO SCH (09:05)
[2018-02-02] MEDS: amLODIPine 5 MG TAB PO SCH (09:05)
[2018-02-02] MEDS: ALLOPURINOL 300 MG TAB PO SCH (09:05)
[2018-02-02] MEDS: POTASSIUM CHLORIDE ER 20 MEQ TAB.ER PO SCH (09:06)
[2018-02-02] MEDS: PARoxetine 10 MG TAB PO SCH (09:06)
[2018-02-02] MEDS: VIT A,C & E-LUTEIN-MINERALS 1 EACH TAB PO SCH (09:06)
[2018-02-02] MEDS: PRAVASTATIN SODIUM 20 MG TAB PO SCH (09:06)
[2018-02-02] MEDS: METOPROLOL TARTRATE 25 MG TAB PO SCH ×2 (09:06→21:03)
[2018-02-02] MEDS: MULTIVITAMINS, THERA 1 EACH TAB PO SCH (09:06)
[2018-02-02] MEDS: CYCLOBENZAPRINE 10 MG TAB PO PRN (09:06)
[2018-02-02] MEDS: LORazepam 0.5 MG TAB PO SCH ×2 (09:10→21:03)
--- NOTE | 2018-02-02 10:42 | P.HPIM ---
History of Present Illness H&P Date: 02/02/18 Chief Complaint: Right foot cellulitis This is a 72-year-old female patient who presented to the emergency room with complaints of right lower extremity redness and increased pain that has been occurring over the past week. Patient states she reported to her primary care provider was started on antibiotics. But pain and redness had significantly worse n. patient proceeded to the emergency department. Patient also reports she had elevated temperature last night at home Patient has a known past medical history of right knee replacement with possible repeat surgeries due to infection and decreased ability amylase secondary to the concave surgeries. Additional medical history includes PE which patient takes Coumadin.additional medical history includes GERD, essential hypertension, osteoarthritis, gout, macular degeneration and multiple orthor surgeries. X-ray completed in ER showing no active cardiopulmonary disease. Cardiomegaly. There is clearing of the pleural reaction and fluid at the lung bases compared to old exam. EKG completed showing normal sinus rhythm. Low voltage QRS cannot rule out anterior infarct, age undetermined. At this time patient denies chest pain or shortness of breath. Denies nausea vomiting or diarrhea. The patient denies any urinary burning or frequency. Urinary analysis showing moderate amount of leukocyte Estrace and positive nitrates. Patient started on Cefepime antibiotic. Blood and urine cultures have been ordered. Dr. Ramirez has been consulted for infectious disease. Review of Systems please refer to HPI otherwise unremarkable Past Medical History Past Medical History: Eye Disorder, GERD/Reflux, Hypertension, Osteoarthritis ( OA), Pulmonary Embolus (PE) Additional Past Medical History / Comment(s): DDD, gastroenteritis, h-pylori, gout, TMJ, bulging discs, left eye blind, macular degeneration BL eyes, multiple falls (not recent), transfers w/ walker to wheelchair, chronic UTI, osteoporosis, hypoglycemia. History of Any Multi-Drug Resistant Organisms: VRE Date of last positivie culture/infection: August 2013 MDRO Source:: Right knee Past Surgical History: Hysterectomy, Joint Replacement, Orthopedic Surgery, Tubal Ligation Additional Past Surgical History / Comment(s): Sternocleidomastoidectomy (right) , right shoulder rotator cuff, rectocele/cystocele, right foot - Varma's neuroma/hammer toe, left outer forearm arthroscopy and shortening left ulna - plates and screws inserted, right wrist bundle of nerves , right knee arthroscopy/realignment of tendon/tibia/kneecap, 4-24-14 right knee replacement , 08-10-13 large hematoma removed, BL vitrectomies, BL cataract surgery, right right femur benign tumor removed, left foot bone spur. Past Anesthesia/Blood Transfusion Reactions: Postoperative Nausea & Vomiting ( PONV) Additional Past Anesthesia/Blood Transfusion Reaction / Comment(s): no complications with prior blood transfusion Past Psychological History: Anxiety, Depression Additional Psychological History / Comment(s): From home with - states that he has to help care for her but his health is slightly declining, making it difficult and contributing to her depression. Feels safe at home. Transfers w / walker and mostly uses wheelchair to get around. . Retired. No international travel. No experience. No animal exposures. No current tobacco or alcohol use Smoking Status: Never smoker Past Alcohol Use History: None Reported Past Drug Use History: None Reported - Past Family History Brother(s) Family Medical History: Cancer, Congestive Heart Failure (CHF) Additional Family Medical History / Comment(s): Heart problems, CABG, oral CA, pacemaker/defib. Father Family Medical History: Congestive Heart Failure (CHF), Hyperlipidemia, Hypertension, Myocardial Infarction ([place]) Additional Family Medical History / Comment(s): at 97 years old. Mother Family Medical History: Congestive Heart Failure (CHF), CVA/TIA Additional Family Medical History / Comment(s): Pacemaker - January 16 at age 94 a few days after CVA. Medications and Allergies Home Medications Medication Instructions Recorded Confirmed Type Allopurinol [Zyloprim] 300 mg PO DAILY 08/21/14 02/01/18 History Aspirin EC [Ecotrin] 325 mg PO DAILY 08/21/14 02/01/18 History Calcium Carbonate/Vitamin D3 1 tab PO BID 08/21/14 02/01/18 History [Calcium 600-Vit D3 400 Tablet] Furosemide [Lasix] 40 mg PO DAILY 08/21/14 02/01/18 History LORazepam [Ativan] 0.5 mg PO BID 08/21/14 02/01/18 History Potassium Chloride [Klor-Con 20] 20 meq PO DAILY 08/21/14 02/01/18 History diphenhydrAMINE HCL [Benadryl] 25 mg PO HS 08/21/14 02/01/18 History Lisinopril [Zestril] 20 mg PO BID@0800,1600 11/17/15 02/01/18 History Metoprolol Tartrate [Lopressor] 25 mg PO BID 11/17/15 02/01/18 History Multivitamins, Thera [Multivitamin 1 tab PO DAILY 11/17/15 02/01/18 History (formulary)] Vit A/Vit C/Vit E/Zinc/Copper 1 cap PO DAILY 11/17/15 02/01/18 History [ICAPS SOFTGEL] Denosumab [Prolia] 60 mg SQ Q180D 07/03/16 02/01/18 History Warfarin [Coumadin] 2.5 mg PO Q48H 07/03/16 02/02/18 History amLODIPine [Norvasc] 5 mg PO QAM 07/03/16 02/01/18 History Acetaminophen Tab [Tylenol] 650 mg PO Q6H PRN 02/02/18 02/02/18 History Cyclobenzaprine [Flexeril] 10 mg PO BID PRN 02/02/18 02/02/18 History Isosorbide Mononitrate ER [Imdur] 30 mg PO DAILY 02/02/18 02/02/18 History Loperamide [Imodium] 2 mg PO Q6H PRN 02/02/18 02/02/18 History Omeprazole 20 mg PO DAILY 02/02/18 02/02/18 History PARoxetine HCL 30 mg PO DAILY 02/02/18 02/02/18 History Pravastatin Sodium [Pravachol] 20 mg PO DAILY 02/02/18 02/02/18 History Allergies Allergy/AdvReac Type Severity Reaction Status Date / Time adhesive Allergy Rash/Hives Verified 02/01/18 22:34 carbamazepine [From Tegretol] Allergy Rash/Hives Verified 02/01/18 22:34 carisoprodol [From Soma] Allergy lowers b/p Verified 02/01/18 22:34 quickly & passes out doxycycline calcium Allergy Rash/Hives Verified 02/01/18 22:34 [From Vibramycin] doxycycline hyclate Allergy Rash/Hives,vomited Verified 02/01/18 22:34 [From Vibramycin] blood doxycycline monohydrate Allergy Rash/Hives,vomited Verified 02/01/18 22:34 [From Vibramycin] blood erythromycin base Allergy Rash/Hives,vomited Verified 02/01/18 22:34 [From E-Mycin] blood hydrocodone bitartrate Allergy abdominal Verified 02/01/18 22:34 [From Vicodin] pain, diarrhea NSAIDS (Non-Steroidal Allergy Swelling Verified 02/01/18 22:34 Anti-Inflamma piroxicam [From Feldene] Allergy Swelling Verified 02/01/18 22:34 ciprofloxacin [From Cipro] AdvReac Nausea & Verified 02/01/18 22:34 Vomiting corn [[place]] AdvReac Diarrhea Verified 02/01/18 22:34 milk AdvReac Diarrhea Verified 02/01/18 22:34 wheat AdvReac Diarrhea Verified 02/01/18 22:34 Physical Exam Vitals: Vital Signs Temp Pulse Pulse Resp BP BP Pulse Ox 02/02/18 05:42 98.7 F 85 20 135/74 94 L 02/02/18 02:10 99.3 F 86 20 109/58 95 02/01/18 23:34 80 16 142/73 93 L 02/01/18 22:18 100.6 F H 89 16 137/79 94 L Intake and Output 02/01/18 02/02/18 02/02/18 22:59 06:59 14:59 Intake Total 240 Balance 240 Intake: Oral 240 Other: Voiding Method Bedpan Bedpan # Voids 2 Weight 118.841 kg 119 kg Head normocephalic Neck supple Lungs clear to auscultation bilaterally no wheezing or crackles Heart regular rate and rhythm S1-S2, no rub or gallop Abdomen is soft nontender nondistended positive bowel sounds no hepatosplenomegaly Extremities no edema. Mild right foot edema with redness Neuro alert and orientated to 3 Results CBC & Chem 7: 02/01/18 22:40 02/01/18 22:40 Labs: Abnormal Lab Results - Last 24 Hours (Table) 02/01/18 02/01/18 Range/Units 22:36 22:40 PT 16.1 H (9.0-12.0) sec INR 1.8 H (<1.2) APTT 31.5 H (22.0-30.0) sec Urine Appearance Cloudy H (Clear) Urine Blood Trace H (Negative) Urine Nitrite Positive H (Negative) Ur Leukocyte Esterase Moderate H (Negative) Urine WBC 20 H (0-5) /hpf Urine Bacteria Occasional H (None) /hpf Thrombosis Risk Factor Assmnt - Choose All That Apply Any of the Below Risk Factors Present?: Yes Each Factor Represents 1 point: Medical pt on bed rest, Obesity (BMI >25), Swollen legs (current) Other Risk Factors: Yes Each Risk Factor Represents 2 Points: Age 61-74 years Each Risk Factor Represents 3 Points: History of DVT/PE Other congenital or acquired thrombophilia - If yes, enter type in comment: No Thrombosis Risk Factor Assessment Total Risk Factor Score: 8 Thrombosis Risk Factor Assessment Level: High Risk Assessment and Plan Assessment: 1. Right foot cellulitis. Patient currently on cefepime and vancomycin for antibiotics. Blood and urine cultures have been ordered. Dr. Ramirez has been consulted for infectious disease. 2. Urinary tract infection. Patient currently on Cefipime and vancomycin. Urine culture has been ordered. 3. History of pulmonary embolism. Patient maintained on Coumadin. Home dose resumed. PT/INR ordered daily 4. History of right knee replacement with multiple complications and surgeries required. 5. History of GERD 6. History of essential hypertension 7. History of osteoarthritis 8. History of anxiety and depression DVT prophylaxis Coumadin. GI prophylaxis Protonix Social work has been consulted for possible rehab placement Time with Patient: Greater than 30 (Greater than 60% of the total time spent in counseling and coordination of care. I performed an examination of the patient and discussed their management with the Nurse Practitioner. I have reviewed the Nurse Practitioner's notes and agree with the documented findings and plan of care)
[2018-02-02] MEDS: VANCOMYCIN 1,750 MG in SODIUM CHLORIDE 0.9% 500 ML 500 ML IVPB SCH (14:49)
[2018-02-02] MEDS: LISINOPRIL 20 MG TAB PO SCH (15:01)
[2018-02-02] MEDS ORDERED: WARFARIN 3 MG TAB PO ONE (18:00)
[2018-02-02] MEDS: diphenhydrAMINE 25 MG CAP PO SCH (21:24)
--- NOTE | 2018-02-02 23:13 | P.CONS ---
History of Present Illness - Reason for Consult Consult date: 02/02/18 - Chief Complaint right leg tenderness - History of Present Illness 72 year old woman who has a very complex past medical history many surgeries and has very poor vision and has had vitrectomies and has had difficulty with some falls. Relates that last week was starting to have some troubles with her right lower extremity was increasing pain and redness and erythema. She was seen her primary care physician office and was initiated to oral antibiotic therapy. Despite that she's had no significant improvement and thought she was worsening. Constantly she presented to the emergency center and has been admitted. With concerns of the cellulitis which has not responded to outpatient therapy infectious diseases consultation was requested. The patient is currently denying fevers chills or rigors. She does feel poorly overall he routinely does not feel well. Review of Systems patient relates that she routinely eels poorly HEENT:Denies headache has chronic poor vision. Denies sinus or mouth discomforts. Denies neck stiffness or pain. Denies significant oral cavity pain. Denies difficulty on swallowing. Lungs: Denies significant shortness of breath, cough, sputum production, or hemoptysis. Cardiovascular: Denies significant shortness of breath, chest pain, chest wall pain, orthopnea, dyspnea on exertion, syncope Gastrointestinal:Denies nausea, vomiting, diarrhea, constipation, hematemesis, melena, hematochezia. No no significant change of bowel habit noticed. Musculoskeletal: has chronic musculoskeletal pain to her legs into h Skin: complaints the redness and tenderne Neuro: Denies headache no new acute weakness has chronic difficulty with ambulation no recent seizures Psychiatric:Denies anxiety or depression. Endocrine chronic fatigue chronic weight gain Past Medical History Past Medical History: Eye Disorder, GERD/Reflux, Hypertension, Osteoarthritis ( OA), Pulmonary Embolus (PE) Additional Past Medical History / Comment(s): DDD, gastroenteritis, h-pylori, gout, TMJ, bulging discs, left eye blind, macular degeneration BL eyes, multiple falls (not recent), transfers w/ walker to wheelchair, chronic UTI, osteoporosis, hypoglycemia. 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 MDRO Source:: Right knee Past Surgical History: Hysterectomy, Joint Replacement, Orthopedic Surgery, Tubal Ligation Additional Past Surgical History / Comment(s): Sternocleidomastoidectomy (right) , right shoulder rotator cuff, rectocele/cystocele, right foot - Varma's neuroma/hammer toe, left outer forearm arthroscopy and shortening left ulna - plates and screws inserted, right wrist bundle of nerves , right knee arthroscopy/realignment of tendon/tibia/kneecap, 07-20-13 right knee replacement , 08-10-13 large hematoma removed, BL vitrectomies, BL cataract surgery, right right femur benign tumor removed, left foot bone spur. Past Anesthesia/Blood Transfusion Reactions: Postoperative Nausea & Vomiting ( PONV) Additional Past Anesthesia/Blood Transfusion Reaction / Comm: no complications with prior blood transfusion Past Psychological History: Anxiety, Depression Additional Psychological History / Comment(s): From home with - states that he has to help care for her but his health is slightly declining, making it difficult and contributing to her depression. Feels safe at home. Transfers w / walker and mostly uses wheelchair to get around. . Retired. not a current tobacco smoker. no animals in the home. No experience. No international travel. No experience. No animal exposures. No current tobacco or alcohol use Smoking Status: Never smoker Past Alcohol Use History: None Reported Past Drug Use History: None Reported - Past Family History Brother(s) Family Medical History: Cancer, Congestive Heart Failure (CHF) Additional Family Medical History / Comment(s): Heart problems, CABG, oral CA, pacemaker/defib. Father Family Medical History: Congestive Heart Failure (CHF), Hyperlipidemia, Hypertension, Myocardial Infarction (MS) Additional Family Medical History / Comment(s): at 97 years old. Mother Family Medical History: Congestive Heart Failure (CHF), CVA/TIA Additional Family Medical History / Comment(s): Pacemaker - January 16 at age 94 a few days after CVA. Medications and Allergies Home Medications and Allergies Comment(s): Current Medications Acetaminophen (Tylenol Tab) 650 mg PO Q6HR PRN PRN Reason: Fever and/ or Pain Last Admin: 02/02/18 21:04 Dose: 650 mg Allopurinol (Zyloprim) 300 mg PO DAILY [facility] Last Admin: 02/02/18 09:05 Dose: 300 mg Amlodipine Besylate (Norvasc) 5 mg PO QAM [facility] Last Admin: 02/02/18 09:05 Dose: 5 mg Aspirin (Aspirin) 325 mg PO DAILY [facility] Last Admin: 02/02/18 09:05 Dose: 325 mg Calcium Carbonate (Oscal 500+D) 1 each PO BID [facility] Last Admin: 02/02/18 09:05 Dose: 1 each Cyclobenzaprine HCl (Flexeril) 10 mg PO BID PRN PRN Reason: Muscle Pain Last Admin: 02/02/18 09:06 Dose: 10 mg Diphenhydramine HCl (Benadryl) 25 mg PO HS [facility] Last Admin: 02/02/18 21:24 Dose: 25 mg Furosemide (Lasix) 40 mg PO DAILY [facility] Last Admin: 02/02/18 09:05 Dose: 40 mg Sodium Chloride (Saline 0.9%) 1,000 mls @ 100 mls/hr IV .Q10H [facility] Last Admin: 02/02/18 21:00 Dose: 100 mls/hr Vancomycin HCl 1,750 mg/ (Sodium Chloride) 500 mls @ 167 mls/hr IVPB Q16H [facility] Last Admin: 02/02/18 14:49 Dose: 167 mls/hr Isosorbide Mononitrate (Imdur) 30 mg PO DAILY [facility] Last Admin: 02/02/18 09:05 Dose: 30 mg Lisinopril (Zestril) 20 mg PO BID@0800,1600 [facility] Last Admin: 02/02/18 15:01 Dose: 20 mg Loperamide HCl (Imodium) 2 mg PO Q6H PRN PRN Reason: Diarrhea Last Admin: 02/02/18 11:44 Dose: 2 mg Lorazepam (Ativan) 0.5 mg PO BID [facility] Last Admin: 02/02/18 21:03 Dose: 0.5 mg Metoprolol Tartrate (Lopressor) 25 mg PO BID [facility] Last Admin: 02/02/18 21:03 Dose: 25 mg Miscellaneous Information (Coumadin Per Pharmacy) 1 each MISCELLANE DIRECTED PRN PRN Reason: Per Protocol Multivitamins (Theragran) 1 each PO DAILY [facility] Last Admin: 02/02/18 09:06 Dose: 1 each Multivitamins/Minerals (Ivite) 1 each PO DAILY [facility] Last Admin: 02/02/18 09:06 Dose: 1 each Pantoprazole Sodium (Protonix) 40 mg PO AC-BRKT [facility] Paroxetine HCl (Paxil) 30 mg PO DAILY [facility] Last Admin: 02/02/18 09:06 Dose: 30 mg Potassium Chloride (K-Dur 20) 20 meq PO DAILY [facility] Last Admin: 02/02/18 09:06 Dose: 20 meq Pravastatin Sodium (Pravachol) 20 mg PO DAILY [facility] Last Admin: 02/02/18 09:06 Dose: 20 mg Home Medications Medication Instructions Recorded Confirmed Type Allopurinol [Zyloprim] 300 mg PO DAILY 08/21/14 02/01/18 History Aspirin EC [Ecotrin] 325 mg PO DAILY 08/21/14 02/01/18 History Calcium Carbonate/Vitamin D3 1 tab PO BID 08/21/14 02/01/18 History [Calcium 600-Vit D3 400 Tablet] Furosemide [Lasix] 40 mg PO DAILY 08/21/14 02/01/18 History LORazepam [Ativan] 0.5 mg PO BID 08/21/14 02/01/18 History Potassium Chloride [Klor-Con 20] 20 meq PO DAILY 08/21/14 02/01/18 History diphenhydrAMINE HCL [Benadryl] 25 mg PO HS 08/21/14 02/01/18 History Lisinopril [Zestril] 20 mg PO BID@0800,1600 11/17/15 02/01/18 History Metoprolol Tartrate [Lopressor] 25 mg PO BID 11/17/15 02/01/18 History Multivitamins, Thera [Multivitamin 1 tab PO DAILY 11/17/15 02/01/18 History (formulary)] Vit A/Vit C/Vit E/Zinc/Copper 1 cap PO DAILY 11/17/15 02/01/18 History [ICAPS SOFTGEL] Denosumab [Prolia] 60 mg SQ Q180D 07/03/16 02/01/18 History Warfarin [Coumadin] 2.5 mg PO Q48H 07/03/16 02/02/18 History amLODIPine [Norvasc] 5 mg PO QAM 07/03/16 02/01/18 History Acetaminophen Tab [Tylenol] 650 mg PO Q6H PRN 02/02/18 02/02/18 History Cyclobenzaprine [Flexeril] 10 mg PO BID PRN 02/02/18 02/02/18 History Isosorbide Mononitrate ER [Imdur] 30 mg PO DAILY 02/02/18 02/02/18 History Loperamide [Imodium] 2 mg PO Q6H PRN 02/02/18 02/02/18 History Omeprazole 20 mg PO DAILY 02/02/18 02/02/18 History PARoxetine HCL 30 mg PO DAILY 02/02/18 02/02/18 History Pravastatin Sodium [Pravachol] 20 mg PO DAILY 02/02/18 02/02/18 History Allergies Allergy/AdvReac Type Severity Reaction Status Date / Time adhesive Allergy Rash/Hives Verified 02/01/18 22:34 carbamazepine [From Tegretol] Allergy Rash/Hives Verified 02/01/18 22:34 carisoprodol [From Soma] Allergy lowers b/p Verified 02/01/18 22:34 quickly & passes out doxycycline calcium Allergy Rash/Hives Verified 02/01/18 22:34 [From Vibramycin] doxycycline hyclate Allergy Rash/Hives,vomited Verified 02/01/18 22:34 [From Vibramycin] blood doxycycline monohydrate Allergy Rash/Hives,vomited Verified 02/01/18 22:34 [From Vibramycin] blood erythromycin base Allergy Rash/Hives,vomited Verified 02/01/18 22:34 [From E-Mycin] blood hydrocodone bitartrate Allergy abdominal Verified 02/01/18 22:34 [From Vicodin] pain, diarrhea NSAIDS (Non-Steroidal Allergy Swelling Verified 02/01/18 22:34 Anti-Inflamma piroxicam [From Feldene] Allergy Swelling Verified 02/01/18 22:34 ciprofloxacin [From Cipro] AdvReac Nausea & Verified 02/01/18 22:34 Vomiting corn [Spruce] AdvReac Diarrhea Verified 02/01/18 22:34 milk AdvReac Diarrhea Verified 02/01/18 22:34 wheat AdvReac Diarrhea Verified 02/01/18 22:34 Physical Exam Vitals: Vital Signs Temp Pulse Pulse Resp BP BP BP 02/02/18 14:40 98.8 F 72 16 107/62 02/02/18 05:42 98.7 F 85 20 135/74 02/02/18 02:10 99.3 F 86 20 109/58 02/01/18 23:34 80 16 142/73 02/01/18 22:18 100.6 F H 89 16 137/79 Pulse Ox 02/02/18 14:40 97 02/02/18 05:42 94 L 02/02/18 02:10 95 02/01/18 23:34 93 L 02/01/18 22:18 94 L Intake and Output 02/02/18 02/02/18 02/02/18 06:59 14:59 22:59 Intake Total 240 Balance 240 Intake: Oral 240 Other: Voiding Method Bedpan Bedpan Bedpan # Voids 2 3 # Bowel Movements 0 Weight 119 kg HEENT: Anicteric conjunctiva are pink and moist nasal mucosa grossly intact without significant lesions, there is no thrush. Neck: The neck is supple without significant lymphadenopathy or thyromegaly. Lungs: ymmetrical air entry is noted Heart: Regular rate and rhythm with an audible S1-S2, no S3 no S4. There is no significant murmur click or rub, PMI was nondisplaced. Abdomen: Positive bowel sounds soft and nontender without palpable masses or organomegaly. There was no guarding or rebound. Extremities: upper extremities without lesions, The IV site is intact.the right lower extremity reveals evidence of the erythema to the extremities. No open ulcerations Neuro: Awake alert oriented to person place and time. There are no acute new gross focal sensory motor deficits. Results CBC & Chem 7: 02/01/18 22:40 02/01/18 22:40 Labs: Abnormal Lab Results - Last 24 Hours (Table) 02/01/18 02/01/18 Range/Units 22:36 22:40 PT 16.1 H (9.0-12.0) sec INR 1.8 H (<1.2) APTT 31.5 H (22.0-30.0) sec Urine Appearance Cloudy H (Clear) Urine Blood Trace H (Negative) Urine Nitrite Positive H (Negative) Ur Leukocyte Esterase Moderate H (Negative) Urine WBC 20 H (0-5) /hpf Urine Bacteria Occasional H (None) /hpf Microbiology - Last 24 Hours (Table) 02/01/18 22:36 Urine Culture - Preliminary Urine,Voided Microbiology 02/01/18 22:36 Urine,Voided Urine Culture - Preliminary Assessment and Plan (1) Cellulitis Narrative/Plan: 72-year-old woman presents to Hospital significant pain to the right lower extremity and erythema and constantly was admitted with concerns for cellulitis that failed outpatient antibiotic therapy. The site will be treated with silvadene and antibiotics with Vancomycin for now while cultures are awaited. to elevate the leg also. Current Visit: Yes Status: Acute Code(s): L03.90 - CELLULITIS, UNSPECIFIED SNOMED Code(s): 574156523
[2018-02-03] MEDS: CYCLOBENZAPRINE 10 MG TAB PO PRN ×2 (00:11→22:41)
[2018-02-03] MEDS: SODIUM CHLORIDE 0.9% 1,000 ML IV SCH ×2 (05:42→16:11)
[2018-02-03] MEDS: VANCOMYCIN 1,750 MG in SODIUM CHLORIDE 0.9% 500 ML 500 ML IVPB SCH ×2 (05:42→22:24)
[2018-02-03] MEDS: ACETAMINOPHEN TAB 325 MG TAB PO PRN ×3 (05:54→20:18)
[2018-02-03] MEDS: CALCIUM CARB-VIT D 500MG-200UN 1 EACH TAB PO SCH ×2 (07:50→22:24)
[2018-02-03] MEDS: ISOSORBIDE MONONITRATE ER 30 MG TAB.ER.24H PO SCH (07:50)
[2018-02-03] MEDS: FUROSEMIDE 40 MG TAB PO SCH (07:50)
[2018-02-03] MEDS: LORazepam 0.5 MG TAB PO SCH ×2 (07:50→22:25)
[2018-02-03] MEDS: VIT A,C & E-LUTEIN-MINERALS 1 EACH TAB PO SCH (07:51)
[2018-02-03] MEDS: PANTOPRAZOLE 40 MG TABLET PO SCH (07:51)
[2018-02-03] MEDS: ALLOPURINOL 300 MG TAB PO SCH (07:51)
[2018-02-03] MEDS: PARoxetine 10 MG TAB PO SCH (07:51)
[2018-02-03] MEDS: LISINOPRIL 20 MG TAB PO SCH ×2 (07:51→16:10)
[2018-02-03] MEDS: ASPIRIN 325 MG TAB PO SCH (07:51)
[2018-02-03] MEDS: amLODIPine 5 MG TAB PO SCH (07:51)
[2018-02-03] MEDS: POTASSIUM CHLORIDE ER 20 MEQ TAB.ER PO SCH (07:52)
[2018-02-03] MEDS: METOPROLOL TARTRATE 25 MG TAB PO SCH ×2 (07:52→22:24)
[2018-02-03] MEDS: PRAVASTATIN SODIUM 20 MG TAB PO SCH (07:52)
[2018-02-03] MEDS: MULTIVITAMINS, THERA 1 EACH TAB PO SCH (07:52)
[2018-02-03 08:17] LABS: Basophils % (A) 0 %; Eosinophils # (A) 0.1 k/uL (0-0.7); Eosinophils % (A) 2 %; HCT 35.4 % (34.0-46.0); HGB 11.5 gm/dL (11.4-16.0); Lymphocytes # (A) 1.1 k/uL (1.0-4.8); Lymphocytes % (A) 15 %; MCH 30.8 pg (25.0-35.0); MCHC 32.4 g/dL (31.0-37.0); Mean Platelet Volume 6.7; Monocytes # (A) 0.5 k/uL (0-1.0); Monocytes % (A) 6 %; Neutrophils # (A) 5.3 k/uL (1.3-7.7); Neutrophils % (A) 74 %; Platelet Count 242 k/uL (150-450); RBC 3.73 m/uL (3.80-5.40); RDW 14.2 % (11.5-15.5); WBC 7.2 k/uL (3.8-10.6)
[2018-02-03 08:19] LABS: INR 1.5 (<1.2); Prothrombin Time 13.6 sec (9.0-12.0)
[2018-02-03 08:38] LABS: Albumin 3.4 g/dL (3.5-5.0); Calcium 9.5 mg/dL (8.4-10.2); Potassium 4.3 mmol/L (3.5-5.1); Total Bilirubin 0.7 mg/dL (0.2-1.3); Total Protein 6.4 g/dL (6.3-8.2)
--- NOTE | 2018-02-03 09:54 | P.PN ---
Subjective Progress Note Date: 02/03/18 This is a 72-year-old female patient who presented to the emergency room with complaints of right lower extremity redness and increased pain that has been occurring over the past week. Patient states she reported to her primary care provider was started on antibiotics. But pain and redness had significantly worse n. patient proceeded to the emergency department. Patient also reports she had elevated temperature last night at home Patient has a known past medical history of right knee replacement with possible repeat surgeries due to infection and decreased ability amylase secondary to the concave surgeries. Additional medical history includes PE which patient takes Coumadin.additional medical history includes GERD, essential hypertension, osteoarthritis, gout, macular degeneration and multiple orthor surgeries. X-ray completed in ER showing no active cardiopulmonary disease. Cardiomegaly. There is clearing of the pleural reaction and fluid at the lung bases compared to old exam. EKG completed showing normal sinus rhythm. Low voltage QRS cannot rule out anterior infarct, age undetermined. At this time patient denies chest pain or shortness of breath. Denies nausea vomiting or diarrhea. The patient denies any urinary burning or frequency. Urinary analysis showing moderate amount of leukocyte Estrace and positive nitrates. Patient started on Cefepime antibiotic. Blood and urine cultures have been ordered. Dr. Ramirez has been consulted for infectious disease. 02/03/2018 patient is currently resting comfortably in bed. Right foot slightly improved from yesterday. At this time patient denies chest pain or shortness breath. Patient denies nausea vomiting or diarrhea. Patient denies any urinary burning or frequency. Patient's UA was positive for urinary tract infection. Urine culture has been ordered and is currently pending. Objective - Vital Signs Vital signs: Vital Signs Temp 99.0 F 02/03/18 07:00 Pulse 82 02/03/18 07:00 Resp 20 02/03/18 07:00 BP 143/74 02/03/18 07:00 Pulse Ox 96 02/03/18 07:00 Intake & Output 02/02/18 02/03/18 02/03/18 18:59 06:59 18:59 Intake Total 240 1700 200 Balance 240 1700 200 Intake: Intake, IV Titration 1700 Amount Sodium Chloride 0.9% 1, 1200 000 ml @ 100 mls/hr IV . Q10H [facility] Rx#:[id number] Vancomycin 1,750 mg In 500 Sodium Chloride 0.9% 500 ml 500 ml @ 167 mls/hr IVPB Q16H [facility] Rx#: [id number] Oral 240 200 Other: Voiding Method Bedpan Bedpan Bedpan # Voids 3 3 # Bowel Movements 0 0 - Exam Head normocephalic Neck supple Lungs clear to auscultation bilaterally no wheezing or crackles Heart regular rate and rhythm S1-S2, no rub or gallop Abdomen is soft nontender nondistended positive bowel sounds no hepatosplenomegaly Extremities no edema. Mild right foot edema with redness Neuro alert and orientated to 3 - Labs CBC & Chem 7: 02/03/18 07:32 02/03/18 07:32 Labs: Abnormal Lab Results - Last 24 Hours (Table) 02/03/18 02/03/18 02/03/18 Range/Units 07:32 07:32 07:32 RBC 3.73 L (3.80-5.40) m/uL PT 13.6 H (9.0-12.0) sec INR 1.5 H (<1.2) Albumin 3.4 L (3.5-5.0) g/dL Microbiology - Last 24 Hours (Table) 02/01/18 22:40 Blood Culture - Preliminary Blood No Growth after 24 hours 02/01/18 22:36 Urine Culture - Preliminary Urine,Voided Assessment and Plan Assessment: 1. Right foot cellulitis. Patient currently on cefepime and vancomycin for antibiotics. Blood and urine cultures have been ordered. Per Dr. Ramirez with infectious disease right foot site will be treated with Silvadene and antibiotics with vancomycin for now will cultures are pending. Blood culture currently showing no growth. Patient maintained on vancomycin for IV antibiotics. Awaiting final cultures per infectious disease 2. Urinary tract infection. Patient currently vancomycin. Urine culture has been ordered. 3. History of pulmonary embolism. Patient maintained on Coumadin. Home dose resumed. PT/INR ordered daily. INR 1.5. Pharmacy to dose Coumadin 4. History of right knee replacement with multiple complications and surgeries required. 5. History of GERD 6. History of essential hypertension 7. History of osteoarthritis 8. History of anxiety and depression DVT prophylaxis Coumadin. GI prophylaxis Protonix Social work has been consulted for possible rehab placement physical therapy has been consulted I performed an examination of the patient and discussed their management with the Nurse Practitioner. I have reviewed the Nurse Practitioner's notes and agree with the documented findings and plan of care
[2018-02-03] MEDS ORDERED: WARFARIN 2 MG TAB PO ONE (18:00)
[2018-02-03] MEDS: diphenhydrAMINE 25 MG CAP PO SCH (22:25)
[2018-02-04] MEDS: SODIUM CHLORIDE 0.9% 1,000 ML IV SCH ×2 (04:45→12:50)
[2018-02-04 06:37] VITALS: BP 137/80; PULSE 76; RESP 15; TEMP 98.5
[2018-02-04] MEDS: LORazepam 0.5 MG TAB PO SCH (07:36)
[2018-02-04] MEDS: ACETAMINOPHEN TAB 325 MG TAB PO PRN (07:36)
[2018-02-04] MEDS: ASPIRIN 325 MG TAB PO SCH (07:37)
[2018-02-04] MEDS: FUROSEMIDE 40 MG TAB PO SCH (07:37)
[2018-02-04] MEDS: PANTOPRAZOLE 40 MG TABLET PO SCH (07:37)
[2018-02-04] MEDS: CALCIUM CARB-VIT D 500MG-200UN 1 EACH TAB PO SCH (07:37)
[2018-02-04] MEDS: POTASSIUM CHLORIDE ER 20 MEQ TAB.ER PO SCH (07:37)
[2018-02-04] MEDS: LISINOPRIL 20 MG TAB PO SCH (07:37)
[2018-02-04] MEDS: MULTIVITAMINS, THERA 1 EACH TAB PO SCH (07:37)
[2018-02-04] MEDS: METOPROLOL TARTRATE 25 MG TAB PO SCH (07:38)
[2018-02-04] MEDS: ALLOPURINOL 300 MG TAB PO SCH (07:38)
[2018-02-04] MEDS: amLODIPine 5 MG TAB PO SCH (07:38)
[2018-02-04] MEDS: ISOSORBIDE MONONITRATE ER 30 MG TAB.ER.24H PO SCH (07:38)
[2018-02-04] MEDS: PARoxetine 10 MG TAB PO SCH (07:39)
[2018-02-04] MEDS: PRAVASTATIN SODIUM 20 MG TAB PO SCH (07:39)
[2018-02-04] MEDS: VIT A,C & E-LUTEIN-MINERALS 1 EACH TAB PO SCH (07:39)
[2018-02-04 10:10] LABS: INR 1.8 (<1.2); Prothrombin Time 16.3 sec (9.0-12.0)
[2018-02-04 10:12] LABS: Basophils % (A) 0 %; Eosinophils # (A) 0.2 k/uL (0-0.7); Eosinophils % (A) 3 %; HCT 37.1 % (34.0-46.0); HGB 12.2 gm/dL (11.4-16.0); Lymphocytes % (A) 16 %; MCH 30.9 pg (25.0-35.0); MCHC 32.8 g/dL (31.0-37.0); MCV 94.1 fL (80.0-100.0); Mean Platelet Volume 7.2; Monocytes # (A) 0.4 k/uL (0-1.0); Monocytes % (A) 6 %; Neutrophils # (A) 4.6 k/uL (1.3-7.7); Neutrophils % (A) 74 %; Platelet Count 255 k/uL (150-450); RBC 3.94 m/uL (3.80-5.40); WBC 6.3 k/uL (3.8-10.6)
[2018-02-04 10:31] LABS: Albumin 3.5 g/dL (3.5-5.0); Calcium 9.2 mg/dL (8.4-10.2); Potassium 4.1 mmol/L (3.5-5.1); Total Bilirubin 0.6 mg/dL (0.2-1.3); Total Protein 6.6 g/dL (6.3-8.2)
[2018-02-04] MEDS ORDERED: VANCOMYCIN TROUGH DUE 1 EACH MISC MISCELLANE ONE (13:00)
--- NOTE | 2018-02-04 13:27 | P.DS ---
Providers Date of admission: 02/01/18 23:59 Expected date of discharge: 02/04/18 Attending physician: Gage Gastelum Consults: 02/02/18 10:21 Consult Physician Routine Consulting Provider: Jhonathan Ramirez Consult Reason/Comments: cellulits of righ foot Do you want consulting provider notified?: Yes Primary care physician: Gage Gastelum [facility] Course: Discharge Diagnosis 1. Right foot cellulitis. Patient currently on cefepime and vancomycin for antibiotics. Blood and urine cultures have been ordered. Per Dr. Ramirez with infectious disease right foot site will be treated with Silvadene and antibiotics with vancomycin for now will cultures are pending. Blood culture currently showing no growth. Patient maintained on vancomycin for IV antibiotics. Patient has been cleared for discharge from infectious disease will be DC'd on by mouth Rocephin 2. Urinary tract infection. Patient currently vancomycin. Urine culture Klebsiella pneumonia. DC'd home on Rocephin 3. History of pulmonary embolism. Patient maintained on Coumadin. Home dose resumed. PT/INR ordered daily. INR 1.5. Pharmacy to dose Coumadin 4. History of right knee replacement with multiple complications and surgeries required. 5. History of GERD 6. History of essential hypertension 7. History of osteoarthritis 8. History of anxiety and depression Hospital Course This is a 72-year-old female patient who presented to the emergency room with complaints of right lower extremity redness and increased pain that has been occurring over the past week. Patient states she reported to her primary care provider was started on antibiotics. But pain and redness had significantly worse n. patient proceeded to the emergency department. Patient also reports she had elevated temperature last night at home Patient has a known past medical history of right knee replacement with possible repeat surgeries due to infection and decreased ability amylase secondary to the concave surgeries. Additional medical history includes PE which patient takes Coumadin.additional medical history includes GERD, essential hypertension, osteoarthritis, gout, macular degeneration and multiple orthor surgeries. X-ray completed in ER showing no active cardiopulmonary disease. Cardiomegaly. There is clearing of the pleural reaction and fluid at the lung bases compared to old exam. EKG completed showing normal sinus rhythm. Low voltage QRS cannot rule out anterior infarct, age undetermined. At this time patient denies chest pain or shortness of breath. Denies nausea vomiting or diarrhea. The patient denies any urinary burning or frequency. Urinary analysis showing moderate amount of leukocyte Estrace and positive nitrates. Patient started on Cefepime antibiotic. Blood and urine cultures have been ordered. Dr. Ramirez has been consulted for infectious disease. 02/03/2018 patient is currently resting comfortably in bed. Right foot slightly improved from yesterday. At this time patient denies chest pain or shortness breath. Patient denies nausea vomiting or diarrhea. Patient denies any urinary burning or frequency. Patient's UA was positive for urinary tract infection. Urine culture has been ordered and is currently pending. On 02/04/2018 patient is currently resting comfortably in bed. Patient does admit she remains weak. Patient has been cleared for discharge from infectious disease. Patient will be DC'd on Rocephin. Patient planning to go to [facility] for c[facility]. This time patient denies chest pain or shortness breath. Patient denies nausea vomiting or diarrhea. Patient denies any urinary burning or frequency. Patient to be followed by Dr. Gastelum I performed an examination of the patient and discussed their management with the Nurse Practitioner. I have reviewed the Nurse Practitioner's notes and agree with the documented findings and plan of care Patient Condition at Discharge: Stable Plan - Discharge Summary Discharge Rx Participant: No New Discharge Prescriptions: New Cephalexin [Keflex] 500 mg PO TID #28 cap Continue diphenhydrAMINE HCL [Benadryl] 25 mg PO HS Aspirin EC [Ecotrin] 325 mg PO DAILY Allopurinol [Zyloprim] 300 mg PO DAILY Potassium Chloride [Klor-Con 20] 20 meq PO DAILY Furosemide [Lasix] 40 mg PO DAILY Calcium Carbonate/Vitamin D3 [Calcium 600-Vit D3 400 Tablet] 1 tab PO BID Lisinopril [Zestril] 20 mg PO BID@0800,1600 Metoprolol Tartrate [Lopressor] 25 mg PO BID Vit A/Vit C/Vit E/Zinc/Copper [ICAPS SOFTGEL] 1 cap PO DAILY Multivitamins, Thera [Multivitamin (formulary)] 1 tab PO DAILY amLODIPine [Norvasc] 5 mg PO QAM Warfarin [Coumadin] 2.5 mg PO Q48H Denosumab [Prolia] 60 mg SQ Q180D Pravastatin Sodium [Pravachol] 20 mg PO DAILY Acetaminophen Tab [Tylenol] 650 mg PO Q6H PRN PRN Reason: Pain PARoxetine HCL 30 mg PO DAILY Loperamide [Imodium] 2 mg PO Q6H PRN PRN Reason: Diarrhea Omeprazole 20 mg PO DAILY Isosorbide Mononitrate ER [Imdur] 30 mg PO DAILY Cyclobenzaprine [Flexeril] 10 mg PO BID PRN PRN Reason: Pain LORazepam [Ativan] 0.5 mg PO BID 3 Days #6 tab Discharge Medication List Allopurinol [Zyloprim] 300 mg PO DAILY 08/21/14 [History] Aspirin EC [Ecotrin] 325 mg PO DAILY 08/21/14 [History] Calcium Carbonate/Vitamin D3 [Calcium 600-Vit D3 400 Tablet] 1 tab PO BID [History] Furosemide [Lasix] 40 mg PO DAILY 08/21/14 [History] Potassium Chloride [Klor-Con 20] 20 meq PO DAILY 08/21/14 [History] diphenhydrAMINE HCL [Benadryl] 25 mg PO HS 08/21/14 [History] Lisinopril [Zestril] 20 mg PO BID@0800,1600 11/17/15 [History] Metoprolol Tartrate [Lopressor] 25 mg PO BID 11/17/15 [History] Multivitamins, Thera [Multivitamin (formulary)] 1 tab PO DAILY 11/17/15 [History ] Vit A/Vit C/Vit E/Zinc/Copper [ICAPS SOFTGEL] 1 cap PO DAILY 11/17/15 [History] Denosumab [Prolia] 60 mg SQ Q180D 07/03/16 [History] Warfarin [Coumadin] 2.5 mg PO Q48H 07/03/16 [History] amLODIPine [Norvasc] 5 mg PO QAM 07/03/16 [History] Acetaminophen Tab [Tylenol] 650 mg PO Q6H PRN 02/02/18 [History] Cyclobenzaprine [Flexeril] 10 mg PO BID PRN 02/02/18 [History] Isosorbide Mononitrate ER [Imdur] 30 mg PO DAILY 02/02/18 [History] Loperamide [Imodium] 2 mg PO Q6H PRN 02/02/18 [History] Omeprazole 20 mg PO DAILY 02/02/18 [History] PARoxetine HCL 30 mg PO DAILY 02/02/18 [History] Pravastatin Sodium [Pravachol] 20 mg PO DAILY 02/02/18 [History] Cephalexin [Keflex] 500 mg PO TID #28 cap 02/04/18 [Rx] LORazepam [Ativan] 0.5 mg PO BID 3 Days #6 tab 02/04/18 [Rx] Follow up Appointment(s)/Referral(s): Gage Gastelum MD [Primary Care Provider] - 1-2 days Jhonathan Ramirez MD [STAFF PHYSICIAN] - 1 Week Ambulatory/Diagnostic Orders: Complete Blood Count w/diff [LAB.AMB] Time Frame: 2 Days, Location: None Selected Comprehensive Metabolic Panel [LAB.AMB] Time Frame: 2 Days, Location: None Selected Prothrombin Time INR [LAB.AMB] Time Frame: 2 Days, Location: None Selected Activity/Diet/Wound Care/Special Instructions: patient to be followed Dr. Gastelum diet regular Activity as tolerated CbC, CMP and PT/INR 2 days Discharge Disposition: TRANSFER TO SNF/ECF
[2018-02-04] MEDS ORDERED: CEPHALEXIN 500 MG CAP PO SCH (16:00)
[2018-02-04] MEDS ORDERED: WARFARIN 2 MG TAB PO ONE (18:00)
== END 2018-02-04 14:52 | DRG 603 ==
LOC: EC 22:15 → 4MS4W 23:59
PROVIDERS: ADMIT Internal Medicine; ATTEND Internal Medicine
DX: L03.115 Cellulitis of right lower limb (principal); N39.0 Urinary tract infection, site not specified; Z68.41 Body mass index [BMI] 40.0-44.9, adult; F32.9 Major depressive disorder, single episode, unspecified; F41.9 Anxiety disorder, unspecified; Z96.651 Presence of right artificial knee joint; E66.01 Morbid (severe) obesity due to excess calories; H35.30 Unspecified macular degeneration; H54.62 Unqualified visual loss, left eye, normal vision right eye; I11.9 Hypertensive heart disease without heart failure; M81.0 Age-related osteoporosis without current pathological fracture; B96.1 Klebsiella pneumoniae [K. pneumoniae] as the cause of diseases classified elsewhere; M19.90 Unspecified osteoarthritis, unspecified site; K21.9 Gastro-esophageal reflux disease without esophagitis; M10.9 Gout, unspecified; Z79.01 Long term (current) use of anticoagulants; Z86.711 Personal history of pulmonary embolism; Z87.440 Personal history of urinary (tract) infections; Z98.51 Tubal ligation status; Z90.710 Acquired absence of both cervix and uterus; Z79.82 Long term (current) use of aspirin; Z82.3 Family history of stroke; Z82.49 Family history of ischemic heart disease and other diseases of the circulatory system; Z79.899 Other long term (current) drug therapy; Z88.6 Allergy status to analgesic agent; Z88.1 Allergy status to other antibiotic agents; Z91.011 Allergy to milk products; Z88.5 Allergy status to narcotic agent; Z91.018 Allergy to other foods
CPT/HCPCS: 36415; 71046; 80053; 81001; 82550; 82553; 83605; 84484; 85025; 85610; 85730; 87040; 87077; 87086; 87186; 93005; 96361; 96365; 96367; 99285

== ENCOUNTER 2018-03-27 22:50 | Inpatient (IN) | payer MEDICARE, OTHER ==
[2018-03-27] MEDS ORDERED: ACETAMINOPHEN TAB 325 MG TAB PO STA (23:44)
[2018-03-28 00:28] LABS: Basophils % (A) 0 %; Eosinophils # (A) 0.1 k/uL (0-0.7); Eosinophils % (A) 1 %; HGB 11.3 gm/dL (11.4-16.0); Lymphocytes # (A) 1.2 k/uL (1.0-4.8); Lymphocytes % (A) 14 %; MCH 29.3 pg (25.0-35.0); MCHC 31.4 g/dL (31.0-37.0); MCV 93.3 fL (80.0-100.0); Mean Platelet Volume 6.7; Monocytes # (A) 0.7 k/uL (0-1.0); Monocytes % (A) 8 %; Neutrophils # (A) 6.4 k/uL (1.3-7.7); Neutrophils % (A) 73 %; Platelet Count 296 k/uL (150-450); RBC 3.85 m/uL (3.80-5.40); RDW 14.6 % (11.5-15.5); WBC 8.8 k/uL (3.8-10.6)
--- NOTE | 2018-03-28 00:40 | ED ---
Extremity Problem HPI - General Chief complaint: Extremity Problem,Nontraumatic Stated complaint: Hand pain Time Seen by Provider: 03/27/18 23:32 Source: patient Mode of arrival: ambulatory Limitations: physical limitation - History of Present Illness Initial comments: 72-year-old female presenting with left hand pain and fever began today. Patient states she was unable to get up from her chair she uses a walker and could not prevent any pressure on the hand. She admits to swelling but denies any injury, joint injections or history of gout in that hand or wrist. 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 She states she recently finished abx for RLE cellulitis after an admission in January. She admits to a history of gout but denies ever having it in her left hand and states she has been compliant with her Allopurinol. She does have a history of PE and is on coumadin. She states her most recent INR was supratherapeutic so she was instructed to skip two doses. - Related Data Home Medications Medication Instructions Recorded Confirmed Allopurinol [Zyloprim] 300 mg PO DAILY 08/21/14 03/27/18 Furosemide [Lasix] 40 mg PO DAILY 08/21/14 03/27/18 Potassium Chloride [Klor-Con 20] 20 meq PO DAILY 08/21/14 03/27/18 diphenhydrAMINE HCL [Benadryl] 25 mg PO HS 08/21/14 03/27/18 Lisinopril [Zestril] 20 mg PO BID@0800,1600 11/17/15 03/27/18 Metoprolol Tartrate [Lopressor] 25 mg PO BID 11/17/15 03/27/18 Multivitamins, Thera [Multivitamin 1 tab PO DAILY 11/17/15 03/27/18 (formulary)] Vit A/Vit C/Vit E/Zinc/Copper 1 cap PO DAILY 11/17/15 03/27/18 [ICAPS SOFTGEL] Denosumab [Prolia] 60 mg SQ Q180D 07/03/16 03/27/18 amLODIPine [Norvasc] 5 mg PO QAM 07/03/16 03/27/18 Acetaminophen Tab [Tylenol] 650 mg PO Q6H PRN 02/02/18 03/27/18 Cyclobenzaprine [Flexeril] 10 mg PO BID PRN 02/02/18 03/27/18 Isosorbide Mononitrate ER [Imdur] 30 mg PO DAILY 02/02/18 03/27/18 Omeprazole 20 mg PO DAILY 02/02/18 03/27/18 Pravastatin Sodium [Pravachol] 20 mg PO DAILY 02/02/18 03/27/18 PARoxetine HCL [Paxil] 30 mg PO BID 03/27/18 03/27/18 Warfarin [Coumadin] 2.5 mg PO Q48H 03/27/18 03/27/18 Previous Rx's Medication Instructions Recorded LORazepam [Ativan] 0.5 mg PO BID 3 Days #6 tab 02/04/18 Allergies Allergy/AdvReac Type Severity Reaction Status Date / Time adhesive Allergy Rash/Hives Verified 03/27/18 23:36 carbamazepine [From Tegretol] Allergy Rash/Hives Verified 03/27/18 23:36 carisoprodol [From Soma] Allergy lowers b/p Verified 03/27/18 23:36 quickly & passes out doxycycline calcium Allergy Rash/Hives Verified 03/27/18 23:36 [From Vibramycin] doxycycline hyclate Allergy Rash/Hives,vomited Verified 03/27/18 23:36 [From Vibramycin] blood doxycycline monohydrate Allergy Rash/Hives,vomited Verified 03/27/18 23:36 [From Vibramycin] blood erythromycin base Allergy Rash/Hives,vomited Verified 03/27/18 23:36 [From E-Mycin] blood hydrocodone bitartrate Allergy abdominal Verified 03/27/18 23:36 [From Vicodin] pain, diarrhea NSAIDS (Non-Steroidal Allergy Swelling Verified 03/27/18 23:36 Anti-Inflamma piroxicam [From Feldene] Allergy Swelling Verified 03/27/18 23:36 ciprofloxacin [From Cipro] AdvReac Nausea & Verified 03/27/18 23:36 Vomiting corn [[place]] AdvReac Diarrhea Verified 03/27/18 23:36 milk AdvReac Diarrhea Verified 03/27/18 23:36 wheat AdvReac Diarrhea Verified 03/27/18 23:36 Review of Systems ROS Statement: Those systems with pertinent positive or pertinent negative responses have been documented in the HPI. Review of Systems Constitutional: Positive fever, chills Eyes: Denies change in vision, Denies pain Ears, nose, mouth, throat: Denies headaches, Denies sore throat Cardiovascular: Denies chest pain. Denies palpitations Respiratory: Denies shortness of breath, Denies cough Gastrointestinal: Denies abdominal pain. Denies nausea, vomiting, diarrhea. Genitourinary: Denies hematuria, Denies infections Musculoskeletal: Positive pain, Positive swelling Integumentary: Denies rash Neurological: Denies headache, focal weakness, focal numbness Psychiatric: Denies anxiety, Denies depression Hematologic/Lymphatic: Denies easy bleeding or bruising ROS Other: All systems not noted in ROS Statement are negative. Past Medical History Past Medical History: Eye Disorder, GERD/Reflux, Hypertension, Osteoarthritis ( OA), Pulmonary Embolus (PE) Additional Past Medical History / Comment(s): DDD, gastroenteritis, h-pylori, gout, TMJ, bulging discs, left eye blind, macular degeneration BL eyes, multiple falls (not recent), transfers w/ walker to wheelchair, chronic UTI, osteoporosis, hypoglycemia. History of Any Multi-Drug Resistant Organisms: VRE Date of last positivie culture/infection: August 2013 MDRO Source:: Right knee Past Surgical History: Hysterectomy, Joint Replacement, Orthopedic Surgery, Tubal Ligation Additional Past Surgical History / Comment(s): Sternocleidomastoidectomy (right) , right shoulder rotator cuff, rectocele/cystocele, right foot - Varma's neuroma/hammer toe, left outer forearm arthroscopy and shortening left ulna - plates and screws inserted, right wrist bundle of nerves , right knee arthroscopy/realignment of tendon/tibia/kneecap, 07-20-13 right knee replacement , 08-10-13 large hematoma removed, BL vitrectomies, BL cataract surgery, right right femur benign tumor removed, left foot bone spur. Past Anesthesia/Blood Transfusion Reactions: Postoperative Nausea & Vomiting ( PONV) Additional Past Anesthesia/Blood Transfusion Reaction / Comment(s): no complications with prior blood transfusion Past Psychological History: Anxiety, Depression Smoking Status: Never smoker Past Alcohol Use History: None Reported Past Drug Use History: None Reported - Past Family History Brother(s) Family Medical History: Cancer, Congestive Heart Failure (CHF) Additional Family Medical History / Comment(s): Heart problems, CABG, oral CA, pacemaker/defib. Father Family Medical History: Congestive Heart Failure (CHF), Hyperlipidemia, Hypertension, Myocardial Infarction ([place]) Additional Family Medical History / Comment(s): at 97 years old. Mother Family Medical History: Congestive Heart Failure (CHF), CVA/TIA Additional Family Medical History / Comment(s): Pacemaker - January 16 at age 94 a few days after CVA. General Exam - General Exam Comments Initial Comments: General: Awake, alert, No acute Distress HENT: Normocephalic. Atraumatic Eyes: PERRL. EOMI. No scleral icterus. No injected conjunctiva Neck: Full ROM Chest/Lungs: Clear to auscultation bilaterally. No wheezing, rhonchi, or rales Cardiac: Regular rate, rhythm. No murmurs or rubs Abdomen/GI: Soft, nontender, nondistended. No rebound, guarding, or rigidity. Musculoskeletal: Full ROM. Tenderness with warmth to 1st carpalmetacarpal joint on left extending over palm and into the thenar eminence without fluctuance or induration. 2+ radial pulse bilaterally. Pain with movement of left wrist and thumb. Generalized swelling to left hand. Left elbow ROM normal. RLE with warmth extendin from ankle to mid-calf without swelling, induration or fluctuance. Skin: Warm, dry, intact Neurologic: A/Ox3, no weakness, no sensory deficit, no abnormal gait, no coordination deficit Limitations: physical limitation Course Vital Signs 03/27/18 03/28/18 23:01 00:19 Temperature 99.8 F H Pulse Rate 89 87 Respiratory 18 20 Rate Blood Pressure 119/64 121/67 O2 Sat by Pulse 95 96 Oximetry Medical Decision Making - Medical Decision Making 70-year-old female presenting with left hand pain and borderline fever. Initial exam the patient is awake, alert, no acute distress. VSS. On exam the patient does not have swelling over a single joint and therefore aspiration to rule out septic arthritis is unable to be performed. There is erythema and warmth extending along the thenar and hyperthenar eminences. The patient has no swelling extending beyond that erythema has a 2+ pulses. Her symptoms are not consistent with a DVT or arterial occlusion. Patient doesn't a history of gout however her uric acid level is only 5.7, she has been compliant with her allopurinol, and she has never had a gout flare in this area. Is also again not isolated to one joint. Since laboratory workup revealed an COLE and an elevated CRP. Blood cultures are obtained and started the patient on vancomycin and cefepime. I spoke with Dr. Lerma who was agreeable to admission under Dr. Gastelum with ID on consult again. - Lab Data Result diagrams: 03/28/18 00:10 03/28/18 00:10 Lab Results 03/28/18 03/28/18 03/28/18 Range/Units 00:10 00:10 00:15 WBC 8.8 (3.8-10.6) k/uL RBC 3.85 (3.80-5.40) m/uL Hgb 11.3 L (11.4-16.0) gm/dL Hct 36.0 (34.0-46.0) % MCV 93.3 (80.0-100.0) fL MCH 29.3 (25.0-35.0) pg MCHC 31.4 (31.0-37.0) g/dL RDW 14.6 (11.5-15.5) % Plt Count 296 (150-450) k/uL Neutrophils % 73 % Lymphocytes % 14 % Monocytes % 8 % Eosinophils % 1 % Basophils % 0 % Neutrophils # 6.4 (1.3-7.7) k/uL Lymphocytes # 1.2 (1.0-4.8) k/uL Monocytes # 0.7 (0-1.0) k/uL Eosinophils # 0.1 (0-0.7) k/uL Basophils # 0.0 (0-0.2) k/uL Sodium 137 (137-145) mmol/L Potassium 4.3 (3.5-5.1) mmol/L Chloride 104 (98-107) mmol/L Carbon Dioxide 25 (22-30) mmol/L Anion Gap 8 mmol/L BUN 28 H (7-17) mg/dL Creatinine 1.11 H (0.52-1.04) mg/dL Est GFR (CKD-EPI)AfAm 58 (>60 ml/min/1.73 sqM) Est GFR (CKD-EPI)NonAf 50 (>60 ml/min/1.73 sqM) Glucose 115 H (74-99) mg/dL Plasma Lactic Acid Ananth 1.0 (0.7-2.0) mmol/L Uric Acid 5.7 (3.7-7.4) mg/dL Calcium 9.0 (8.4-10.2) mg/dL C-Reactive Protein 37.2 H (<10.0) mg/L Disposition Clinical Impression: COLE (acute kidney injury), Cellulitis, Septic arthritis Disposition: ADMITTED IP TO THIS [facility] Condition: Good Referrals: Gage Gastelum MD [Primary Care Provider] - 1-2 days Decision to Admit Reason: Admit from EC Decision Date: 03/28/18 Decision Time: 01:20
[2018-03-28 01:03] LABS: C Reactive Protein 37.2 mg/L (<10.0); Potassium 4.3 mmol/L (3.5-5.1); Uric Acid 5.7 mg/dL (3.7-7.4)
[2018-03-28] MEDS ORDERED: CEFEPIME 2 GM in SODIUM CHLORIDE 0.9% 50 ML IVPB STA (01:11)
[2018-03-28] MEDS ORDERED: VANCOMYCIN IV PER PHARMACY 1 EACH MISC MISCELLANE PRN (01:11)
[2018-03-28 01:12] LABS: INR 3.4 (<1.2); Prothrombin Time 33.1 sec (9.0-12.0)
--- NOTE | 2018-03-28 01:17 | XR ---
EXAMINATION TYPE: XR hand complete LT DATE OF EXAM: 03/28/2018 COMPARISON: NONE HISTORY: Pain TECHNIQUE: 3 views FINDINGS: There is amputation deformity of the middle finger at the head of the proximal phalanx. The re is some narrowing of the IP and MP joints bases. There is plate fixation old distal ulnar fracture . There is spurring at the intercarpal joints. There is spurring at the scaphoid trapezium joint and first carpometacarpal joint. I see no fracture. IMPRESSION: Osteoarthritis. No fracture seen. No evidence of inflammatory arthritis.
[2018-03-28] MEDS ORDERED: ONDANSETRON 4 MG/2 ML VIAL IVP PRN (01:20)
[2018-03-28] MEDS ORDERED: NALOXONE 0.4 MG/ML 1 ML VIAL IV PRN (01:20)
[2018-03-28 01:27] LABS: Erythrocyte Sedimentation Rate 36 mm/hr (0-20)
[2018-03-28] MEDS ORDERED: VANCOMYCIN 1,500 MG in SODIUM CHLORIDE 0.9% 250 ML IVPB SCH (02:00)
[2018-03-28] MEDS: SODIUM CHLORIDE 0.9% 1,000 ML IV SCH (03:33)
[2018-03-28 07:30] LABS: Basophils % (A) 0 %; Eosinophils # (A) 0.1 k/uL (0-0.7); Eosinophils % (A) 2 %; HCT 34.5 % (34.0-46.0); HGB 11.4 gm/dL (11.4-16.0); Lymphocytes # (A) 1.4 k/uL (1.0-4.8); Lymphocytes % (A) 20 %; MCHC 33.1 g/dL (31.0-37.0); MCV 93.6 fL (80.0-100.0); Mean Platelet Volume 7.4; Monocytes # (A) 0.5 k/uL (0-1.0); Monocytes % (A) 7 %; Neutrophils # (A) 4.9 k/uL (1.3-7.7); Neutrophils % (A) 69 %; Platelet Count 264 k/uL (150-450); RBC 3.68 m/uL (3.80-5.40); RDW 14.5 % (11.5-15.5); WBC 7.2 k/uL (3.8-10.6)
[2018-03-28 07:33] LABS: INR 3.3 (<1.2); Prothrombin Time 31.3 sec (9.0-12.0)
[2018-03-28 08:02] VITALS: BMI 41.9
[2018-03-28] MEDS: amLODIPine 5 MG TAB PO SCH (10:12)
[2018-03-28] MEDS: LISINOPRIL 20 MG TAB PO SCH ×2 (10:12→16:02)
[2018-03-28] MEDS: ACETAMINOPHEN TAB 325 MG TAB PO PRN ×3 (10:14→21:02)
[2018-03-28] MEDS: MULTIVITAMINS, THERA 1 EACH TAB PO SCH (10:26)
[2018-03-28] MEDS: ISOSORBIDE MONONITRATE ER 30 MG TAB.ER.24H PO SCH (10:26)
[2018-03-28] MEDS: FUROSEMIDE 40 MG TAB PO SCH (10:26)
[2018-03-28] MEDS: POTASSIUM CHLORIDE ER 20 MEQ TAB.ER PO SCH (10:26)
[2018-03-28] MEDS: PANTOPRAZOLE 40 MG TABLET PO SCH (10:26)
[2018-03-28] MEDS: PRAVASTATIN SODIUM 20 MG TAB PO SCH (10:26)
[2018-03-28] MEDS: LORazepam 0.5 MG TAB PO SCH ×2 (10:26→21:01)
[2018-03-28] MEDS: METOPROLOL TARTRATE 25 MG TAB PO SCH ×2 (10:26→21:01)
[2018-03-28] MEDS: ALLOPURINOL 300 MG TAB PO SCH (10:27)
[2018-03-28] MEDS: PARoxetine 10 MG TAB PO SCH ×2 (10:46→21:01)
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
[2018-03-28] MEDS ORDERED: WARFARIN 2.5 MG TAB PO SCH (18:00)
[2018-03-28] MEDS ORDERED: WARFARIN 0.5 MG TAB PO ONE (18:00)
--- NOTE | 2018-03-28 18:17 | P.CONS ---
History of Present Illness - Reason for Consult Consult date: 03/28/18 - Chief Complaint Pain in the left wrist - History of Present Illness 72-year-old female with a very complex past medical history who has macular degeneration with multiple vitrectomies with poor vision and history of falls and many surgeries, presents to hospital with sudden and worsening pain to her left wrist. This is of great difficulty because of her orthopedic complaints she relies on her hands to push herself up to a sitting and standing position. With the sudden onset of pain to her left wrist she was no longer able to push herself up and called EMS for herself to be transported to hospital. Her is currently in hospital with pneumonia and known was able to help her in the home setting. It is not clear that she was have any fevers or chills but does have severe pain to the left wrist. It is painful to range of motion and any pressure on it causes her to cry out in pain. Does have a known history of gout but doesn't believe she's had it in the wrist in the past. She's had extensive surgical intervention to that wrist with orthopedis. The ulnar was too long and consequently it was shortened and plated, she does have reduced range of motion to the area. However she's not had pain like this in this area in the past. Review of Systems Patient relates she feels poorly most of the time HEENT:Denies headache. Denies sinus or mouth discomforts. Denies neck stiffness or pain. Denies significant oral cavity pain. Denies difficulty on swallowing. Vision is very poor Lungs: Denies significant shortness of breath, cough, sputum production, or hemoptysis. Cardiovascular: Denies significant shortness of breath, chest pain, chest wall pain, orthopnea, dyspnea on exertion, syncope Gastrointestinal:Denies nausea, vomiting, diarrhea, constipation, hematemesis, melena, hematochezia. No no significant change of bowel habit noticed. Musculoskeletal: Severe pain to the left wrist other joints are with chronic pain but not acutely changed Skin: Prior extensive surgery to the right leg and has some chronic edema and chronic skin changes to the right lower leg, no current ulcerations or lesions Neuro: Denies headache, vision is poor but not acutely changed .no seizures, has had multiple falls , Psychiatric: No acute depression has anxiety with her in hospital Endocrine: Ongoing fatigue, weight varies appears to be elevated Past Medical History Past Medical History: Eye Disorder, GERD/Reflux, Hypertension, Osteoarthritis ( OA), Pulmonary Embolus (PE) Additional Past Medical History / Comment(s): DDD, gastroenteritis, h-pylori, gout, TMJ, bulging discs, left eye blind, macular degeneration BL eyes, multiple falls (not recent), transfers w/ walker to wheelchair, chronic UTI, osteoporosis, hypoglycemia. 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 MDRO Source:: Right knee Past Surgical History: Hysterectomy, Joint Replacement, Orthopedic Surgery, Tubal Ligation Additional Past Surgical History / Comment(s): Sternocleidomastoidectomy (right) , right shoulder rotator cuff, rectocele/cystocele, right foot - Varma's neuroma/hammer toe, left outer forearm arthroscopy and shortening left ulna - plates and screws inserted, right wrist bundle of nerves , right knee arthroscopy/realignment of tendon/tibia/kneecap, 07-20-13 right knee replacement , 08-10-13 large hematoma removed, BL vitrectomies, BL cataract surgery, right right femur benign tumor removed, left foot bone spur. Past Anesthesia/Blood Transfusion Reactions: Postoperative Nausea & Vomiting ( PONV) Additional Past Anesthesia/Blood Transfusion Reaction / Comm: no complications with prior blood transfusion Past Psychological History: Anxiety, Depression Additional Psychological History / Comment(s): From home with - states that he has to help care for her but his health is slightly declining, making it difficult and contributing to her depression. Feels safe at home. Transfers w / walker and mostly uses wheelchair to get around. . Retired. not a current tobacco smoker. no animals in the home. No experience. No international travel. No experience. No animal exposures. No current tobacco or alcohol use Smoking Status: Never smoker Past Alcohol Use History: None Reported Past Drug Use History: None Reported - Past Family History Brother(s) Family Medical History: Cancer, Congestive Heart Failure (CHF) Additional Family Medical History / Comment(s): Heart problems, CABG, oral CA, pacemaker/defib. Father Family Medical History: Congestive Heart Failure (CHF), Hyperlipidemia, Hypertension, Myocardial Infarction (CA) Additional Family Medical History / Comment(s): at 97 years old. Mother Family Medical History: Congestive Heart Failure (CHF), CVA/TIA Additional Family Medical History / Comment(s): Pacemaker - January 16 at age 94 a few days after CVA. Medications and Allergies Home Medications and Allergies Comment(s): Current Medications Acetaminophen (Tylenol Tab) 650 mg PO Q6HR PRN PRN Reason: Mild Pain or Fever > 100.5 Last Admin: 03/28/18 15:59 Dose: 650 mg Allopurinol (Zyloprim) 300 mg PO DAILY [facility] Last Admin: 03/28/18 10:27 Dose: 300 mg Amlodipine Besylate (Norvasc) 5 mg PO QAM [facility] Last Admin: 03/28/18 10:12 Dose: Not Given Furosemide (Lasix) 40 mg PO DAILY [facility] Last Admin: 03/28/18 10:26 Dose: 40 mg Sodium Chloride (Saline 0.9%) 1,000 mls @ 75 mls/hr IV .[id number] [facility] Last Admin: 03/28/18 03:33 Dose: 75 mls/hr Vancomycin HCl 1,750 mg/ (Sodium Chloride) 500 mls @ 167 mls/hr IVPB Q24H [facility] Isosorbide Mononitrate (Imdur) 30 mg PO DAILY [facility] Last Admin: 03/28/18 10:26 Dose: 30 mg Lisinopril (Zestril) 20 mg PO BID@0800,1600 [facility] Last Admin: 03/28/18 16:02 Dose: 20 mg Lorazepam (Ativan) 0.5 mg PO BID [facility] Last Admin: 03/28/18 10:26 Dose: 0.5 mg Metoprolol Tartrate (Lopressor) 25 mg PO BID [facility] Last Admin: 03/28/18 10:26 Dose: 25 mg Miscellaneous Information (Coumadin Per Pharmacy) 0 each MISCELLANE DIRECTED PRN PRN Reason: PER PROTOCOL Multivitamins (Theragran) 1 each PO DAILY [facility] Last Admin: 03/28/18 10:26 Dose: 1 each Naloxone HCl (Narcan) 0.2 mg IV Q2M PRN PRN Reason: Opioid Reversal Ondansetron HCl (Zofran) 4 mg IVP Q8HR PRN PRN Reason: Nausea And Vomiting Pantoprazole Sodium (Protonix) 40 mg PO DAILY [facility] Last Admin: 03/28/18 10:26 Dose: 40 mg Paroxetine HCl (Paxil) 30 mg PO BID [facility] Last Admin: 03/28/18 10:46 Dose: 30 mg Potassium Chloride (K-Dur 20) 20 meq PO DAILY [facility] Last Admin: 03/28/18 10:26 Dose: 20 meq Pravastatin Sodium (Pravachol) 20 mg PO DAILY [facility] Last Admin: 03/28/18 10:26 Dose: 20 mg Home Medications Medication Instructions Recorded Confirmed Type Allopurinol [Zyloprim] 300 mg PO DAILY 08/21/14 03/27/18 History Furosemide [Lasix] 40 mg PO DAILY 08/21/14 03/27/18 History Potassium Chloride [Klor-Con 20] 20 meq PO DAILY 08/21/14 03/27/18 History diphenhydrAMINE HCL [Benadryl] 25 mg PO HS 08/21/14 03/27/18 History Lisinopril [Zestril] 20 mg PO BID@0800,1600 11/17/15 03/27/18 History Metoprolol Tartrate [Lopressor] 25 mg PO BID 11/17/15 03/27/18 History Multivitamins, Thera [Multivitamin 1 tab PO DAILY 11/17/15 03/27/18 History (formulary)] Vit A/Vit C/Vit E/Zinc/Copper 1 cap PO DAILY 11/17/15 03/27/18 History [ICAPS SOFTGEL] Denosumab [Prolia] 60 mg SQ Q180D 07/03/16 03/27/18 History amLODIPine [Norvasc] 5 mg PO QAM 07/03/16 03/27/18 History Acetaminophen Tab [Tylenol] 650 mg PO Q6H PRN 02/02/18 03/27/18 History Cyclobenzaprine [Flexeril] 10 mg PO BID PRN 02/02/18 03/27/18 History Isosorbide Mononitrate ER [Imdur] 30 mg PO DAILY 02/02/18 03/27/18 History Omeprazole 20 mg PO DAILY 02/02/18 03/27/18 History Pravastatin Sodium [Pravachol] 20 mg PO DAILY 02/02/18 03/27/18 History LORazepam [Ativan] 0.5 mg PO BID 3 Days #6 tab 02/04/18 03/27/18 Rx PARoxetine HCL [Paxil] 30 mg PO BID 03/27/18 03/27/18 History Warfarin [Coumadin] 2.5 mg PO Q48H 03/27/18 03/27/18 History Allergies Allergy/AdvReac Type Severity Reaction Status Date / Time adhesive Allergy Rash/Hives Verified 03/27/18 23:36 carbamazepine [From Tegretol] Allergy Rash/Hives Verified 03/27/18 23:36 carisoprodol [From Soma] Allergy lowers b/p Verified 03/27/18 23:36 quickly & passes out doxycycline calcium Allergy Rash/Hives Verified 03/27/18 23:36 [From Vibramycin] doxycycline hyclate Allergy Rash/Hives,vomited Verified 03/27/18 23:36 [From Vibramycin] blood doxycycline monohydrate Allergy Rash/Hives,vomited Verified 03/27/18 23:36 [From Vibramycin] blood erythromycin base Allergy Rash/Hives,vomited Verified 03/27/18 23:36 [From E-Mycin] blood hydrocodone bitartrate Allergy abdominal Verified 03/27/18 23:36 [From Vicodin] pain, diarrhea NSAIDS (Non-Steroidal Allergy Swelling Verified 03/27/18 23:36 Anti-Inflamma piroxicam [From Feldene] Allergy Swelling Verified 03/27/18 23:36 ciprofloxacin [From Cipro] AdvReac Nausea & Verified 03/27/18 23:36 Vomiting corn [[place]] AdvReac Diarrhea Verified 03/27/18 23:36 milk AdvReac Diarrhea Verified 03/27/18 23:36 wheat AdvReac Diarrhea Verified 03/27/18 23:36 Physical Exam Vitals: Vital Signs Temp Pulse Pulse Resp BP BP Pulse Ox 03/28/18 16:00 84 18 03/28/18 15:20 98.3 F 81 18 112/61 94 L 03/28/18 10:31 87 121/69 03/28/18 08:15 97.7 F 81 18 102/62 97 03/28/18 08:00 87 18 03/28/18 06:09 83 16 119/60 98 03/28/18 03:35 86 16 94 L 03/28/18 00:19 87 20 121/67 96 03/27/18 23:01 99.8 F H 89 18 119/64 95 Intake and Output 03/28/18 03/28/18 03/28/18 06:59 14:59 22:59 Intake Total 525 600 Output Total 500 Balance 525 100 Intake: Intake, IV Titration 525 Amount Sodium Chloride 0.9% 1, 525 000 ml @ 75 mls/hr IV . [id number] [facility] Rx#:[id number] Oral 600 Output: Urine 500 Other: Voiding Method Bedpan # Voids 1 6 # Bowel Movements 1 Weight 117.934 kg 117.934 kg Pleasant obese woman complains of pain to her left wrist, making it difficult to sit up in bed HEENT: Anicteric conjunctiva are pink and moist nasal mucosa grossly intact without significant lesions, there is no thrush. Neck: The neck is supple without significant lymphadenopathy or thyromegaly. Lungs: Symmetrical air entry, expiratory wheezes are scattered no bronchial sounds normal dullness or egophony Heart: Irregular audible S1 and S2 soft S4 no distinct murmur click or a PMI was nondisplaced Abdomen: Obese, Positive bowel sounds soft and nontender without palpable masses or organomegaly. There was no guarding or rebound. Extremities: Right upper extremities without acute abnormalities. Left upper extremity reveals evidence of the distinct tenderness on the lateral aspect of the wrist to the palm. Range of motion in pressure caused her to call out in pain. The surgical site from the orthopedic procedure is well-healed without crepitance or fluctuance. No evidence of any lesions or lacerations on the palmar wrist are noted The lower extremities have some chronic edema right is considerably worse than the left. She is evidence of the multiple surgical interventions to the right knee, or there is been the chronic infection, she has chronic edema and chronic venous stasis changes. Neuro: Awake alert oriented to person place and time. Very poor vision but no other new acute gross focal sensory motor deficits Results CBC & Chem 7: 03/28/18 06:57 03/28/18 00:10 Labs: Abnormal Lab Results - Last 24 Hours (Table) 03/28/18 03/28/18 03/28/18 Range/Units 00:10 00:10 00:40 RBC (3.80-5.40) m/uL Hgb 11.3 L (11.4-16.0) gm/dL ESR 36 H (0-20) mm/hr PT 33.1 H (9.0-12.0) sec INR 3.4 H (<1.2) BUN 28 H (7-17) mg/dL Creatinine 1.11 H (0.52-1.04) mg/dL Glucose 115 H (74-99) mg/dL C-Reactive Protein 37.2 H (<10.0) mg/L 03/28/18 03/28/18 Range/Units 06:57 06:57 RBC 3.68 L (3.80-5.40) m/uL Hgb (11.4-16.0) gm/dL ESR (0-20) mm/hr PT 31.3 H (9.0-12.0) sec INR 3.3 H (<1.2) BUN (7-17) mg/dL Creatinine (0.52-1.04) mg/dL Glucose (74-99) mg/dL C-Reactive Protein (<10.0) mg/L Laboratory Results WBC 7.2 k/uL (3.8-10.6) 03/28/18 06:57 RBC 3.68 m/uL (3.80-5.40) L 03/28/18 06:57 Hgb 11.4 gm/dL (11.4-16.0) 03/28/18 06:57 Hct 34.5 % (34.0-46.0) 03/28/18 06:57 MCV 93.6 fL (80.0-100.0) 03/28/18 06:57 MCH 31.0 pg (25.0-35.0) 03/28/18 06:57 MCHC 33.1 g/dL (31.0-37.0) 03/28/18 06:57 RDW 14.5 % (11.5-15.5) 03/28/18 06:57 Plt Count 264 k/uL (150-450) 03/28/18 06:57 Neutrophils % 69 % 03/28/18 06:57 Lymphocytes % 20 % 03/28/18 06:57 Monocytes % 7 % 03/28/18 06:57 Eosinophils % 2 % 03/28/18 06:57 Basophils % 0 % 03/28/18 06:57 Neutrophils # 4.9 k/uL (1.3-7.7) 03/28/18 06:57 Lymphocytes # 1.4 k/uL (1.0-4.8) 03/28/18 06:57 Monocytes # 0.5 k/uL (0-1.0) 03/28/18 06:57 Eosinophils # 0.1 k/uL (0-0.7) 03/28/18 06:57 Basophils # 0.0 k/uL (0-0.2) 03/28/18 06:57 ESR 36 mm/hr (0-20) H 03/28/18 00:10 PT 31.3 sec (9.0-12.0) H 03/28/18 06:57 INR 3.3 (<1.2) H 03/28/18 06:57 Sodium 137 mmol/L (137-145) 03/28/18 00:10 Potassium 4.3 mmol/L (3.5-5.1) 03/28/18 00:10 Chloride 104 mmol/L (98-107) 03/28/18 00:10 Carbon Dioxide 25 mmol/L (22-30) 03/28/18 00:10 Anion Gap 8 mmol/L 03/28/18 00:10 BUN 28 mg/dL (7-17) H 03/28/18 00:10 Creatinine 1.11 mg/dL (0.52-1.04) H 03/28/18 00:10 Est GFR (CKD-EPI)AfAm 58 (>60 ml/min/1.73 sqM) 03/28/18 00:10 Est GFR (CKD-EPI)NonAf 50 (>60 ml/min/1.73 sqM) 03/28/18 00:10 Glucose 115 mg/dL (74-99) H 03/28/18 00:10 Plasma Lactic Acid Ananth 1.0 mmol/L (0.7-2.0) 03/28/18 00:15 Uric Acid 5.7 mg/dL (3.7-7.4) 03/28/18 00:10 Calcium 9.0 mg/dL (8.4-10.2) 03/28/18 00:10 C-Reactive Protein 37.2 mg/L (<10.0) H 03/28/18 00:10 Assessment and Plan (1) Cellulitis of left hand Current Visit: Yes Status: Acute Code(s): L03.114 - CELLULITIS OF LEFT UPPER LIMB SNOMED Code(s): 67618557 (2) Pain in joint of left wrist Narrative/Plan: 72-year-old female with multiple medical troubles presents to Hospital with severe pain into her left wrist. Because of her many orthopedic issues she relies on her arms hands and wrists to arise from a sitting position and utilize her walker. Because of the severe pain she was unable to get up from the bed, with her in hospital she called EMS to be transported to the emergency center. She continues to have severe pain to the left wrist but it is improving since coming to hospital and receiving current medications. There is evidence of an elevated creatinine and her CRP was also markedly elevated. Consider concerns to the left wrist area. Uric acid level was normal and she is on chronic therapy with allopurinol. We'll obtain a bone scan to evaluate the left wrist area. ESR will also be obtained. CARLOS A painter to help lower extremity chronic edema Current Visit: Yes Status: Acute Code(s): M25.532 - PAIN IN LEFT WRIST SNOMED Code(s): 174547837
[2018-03-29] MEDS: SODIUM CHLORIDE 0.9% 1,000 ML IV SCH ×3 (00:15→21:07)
[2018-03-29] MEDS: VANCOMYCIN 1,750 MG in SODIUM CHLORIDE 0.9% 500 ML 500 ML IVPB SCH (02:04)
[2018-03-29] MEDS: ACETAMINOPHEN TAB 325 MG TAB PO PRN ×4 (05:33→21:06)
[2018-03-29 08:11] LABS: Basophils % (A) 1 %; Eosinophils # (A) 0.1 k/uL (0-0.7); Eosinophils % (A) 2 %; HCT 34.2 % (34.0-46.0); Lymphocytes # (A) 0.9 k/uL (1.0-4.8); Lymphocytes % (A) 16 %; MCH 30.3 pg (25.0-35.0); MCHC 32.3 g/dL (31.0-37.0); MCV 93.8 fL (80.0-100.0); Mean Platelet Volume 6.9; Monocytes # (A) 0.3 k/uL (0-1.0); Monocytes % (A) 5 %; Neutrophils # (A) 4.4 k/uL (1.3-7.7); Neutrophils % (A) 74 %; Platelet Count 261 k/uL (150-450); RBC 3.64 m/uL (3.80-5.40); RDW 14.5 % (11.5-15.5); WBC 5.9 k/uL (3.8-10.6)
[2018-03-29 08:31] LABS: INR 2.2 (<1.2); Prothrombin Time 21.8 sec (9.0-12.0)
[2018-03-29 08:33] LABS: Albumin 3.3 g/dL (3.5-5.0); Calcium 8.9 mg/dL (8.4-10.2); Potassium 4.2 mmol/L (3.5-5.1); Total Bilirubin 0.9 mg/dL (0.2-1.3); Total Protein 6.3 g/dL (6.3-8.2)
[2018-03-29 09:22] LABS: Erythrocyte Sedimentation Rate 48 mm/hr (0-20)
[2018-03-29] MEDS: PARoxetine 10 MG TAB PO SCH ×2 (10:38→21:06)
[2018-03-29] MEDS: METOPROLOL TARTRATE 25 MG TAB PO SCH ×2 (10:39→21:06)
[2018-03-29] MEDS: ISOSORBIDE MONONITRATE ER 30 MG TAB.ER.24H PO SCH (10:40)
[2018-03-29] MEDS: PRAVASTATIN SODIUM 20 MG TAB PO SCH (10:40)
[2018-03-29] MEDS: LORazepam 0.5 MG TAB PO SCH ×2 (10:41→21:06)
[2018-03-29] MEDS: FUROSEMIDE 40 MG TAB PO SCH (10:41)
[2018-03-29] MEDS: MULTIVITAMINS, THERA 1 EACH TAB PO SCH (10:42)
[2018-03-29] MEDS: POTASSIUM CHLORIDE ER 20 MEQ TAB.ER PO SCH (10:42)
[2018-03-29] MEDS: amLODIPine 5 MG TAB PO SCH (10:43)
[2018-03-29] MEDS: LISINOPRIL 20 MG TAB PO SCH ×2 (10:43→16:07)
[2018-03-29] MEDS: ALLOPURINOL 300 MG TAB PO SCH (10:43)
[2018-03-29] MEDS: PANTOPRAZOLE 40 MG TABLET PO SCH (10:43)
--- NOTE | 2018-03-29 12:50 | NM ---
EXAMINATION TYPE: NM bone 3 phase DATE OF EXAM: 03/29/2018 COMPARISON: X-rays of the left hand dated 03/28/2018 HISTORY: Assess for osteomyelitis of left wrist. Patient's right hand/wrist was excluded from imaging due to positioning of IV (right hand) as well as her limited mobility. Triple phase bone scintigraphy was performed following the injection of 26.6 mCi Tc 99m MDP. Immedia te images and 4 hours post injection images acquired. FINDINGS: On the angiographic portion of the examination is mild increased flow noted to the bony carpus of the left wrist. On The subsequent blood pool images there is increased radiotracer accumulation noted th roughout the bony carpus however greatest in the region of the scaphoid and greater multangular. On t he delayed images again there is diffuse uptake throughout the bony carpus greatest at the first meta carpal phalangeal joint. Degenerative uptake is noted to involve the PIP joint of the fourth digit. T here is partial amputation of the third digit. IMPRESSION: 1. Findings are likely degenerative in nature. If there is continued concern for osteomyelitis consid er WBC scan.
--- NOTE | 2018-03-29 13:09 | P.PN ---
Subjective Progress Note Date: 03/29/18 Maria Teresa Celeste is a 72-year-old female well known to my practice who presented to [facility] emergency room due to pain and swelling and movement limitation in her left wrist patient also had significant erythema in the wrist area and low-grade fever of 99.8 on presentation, she was evaluated in the emergency room x-ray of the left hand did not reveal any significant abnormality other than arthritis. 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 Ramirez. Patient also has known history of gout but never had gout in the left wrist or left hand area. Her uric acid on presentation was 5.7 patient stated that she has been compliant with taking allopurinol. Patient's is admitted to the hospital and she has no other support at home she depends on her arms to push herself up and use her walker as she does not have a right knee joint, she was unable to get up due to severe pain in her left wrist area she called the fire department twice to help her patient was then brought into emergency room for further evaluation. Preliminary diagnosis in the emergency room was joint infection possible septic joint possible osteomyelitis she was started on IV antibiotics she was given a dose of cefepime in the emergency room and was started on IV vancomycin, consultation for Dr. Ramirez was initiated. On 03/29/2018 patient was seen and examined on the medical floor she is alert and oriented 3 in no apparent distress she is just back from radiology department after having a bone scan results are still pending She is still having pain in her left wrist otherwise she denies any complaints there is no fever or chills, no headache or dizziness no chest pain no shortness of breath no cough no nausea or vomiting no abdominal pain no diarrhea and no urinary symptoms Objective - Vital Signs Vital signs: Vital Signs Temp 98.0 F 03/29/18 07:40 Pulse 86 03/29/18 07:40 Resp 18 03/29/18 07:40 BP 138/66 03/29/18 07:40 Pulse Ox 95 03/29/18 07:40 Intake & Output 03/28/18 03/29/18 03/29/18 18:59 06:59 18:59 Intake Total 1125 Output Total 900 375 Balance 225 -375 Weight 117.934 kg Intake: Intake, IV Titration 525 Amount Sodium Chloride 0.9% 1, 525 000 ml @ 75 mls/hr IV . [id number] [facility] Rx#:[id number] Oral 600 Output: Urine 900 375 Other: Voiding Method Bedpan Bedpan Bedpan # Voids 6 # Bowel Movements 1 - Exam In general patient is alert and oriented 3 in no apparent distress HEENT head normocephalic and atraumatic Neck is supple no JVD no goiter no lymphadenopathy Chest exam reveals a few scattered crackles no wheezing Cardiac exam reveals regular heart sounds S1 and S2 no gallops no murmurs Abdomen is soft nontender no organomegaly with normal bowel sounds Extremity exam reveals mild erythema in the left wrist area with swelling and movement limitation There is also erythema and warmth in the right pretibial area there is mild swelling bilaterally there is palpable pulses bilaterally no cyanosis or clubbing Neurological examination reveals no gross focal deficit - Labs CBC & Chem 7: 03/29/18 07:18 03/29/18 07:18 Labs: Abnormal Lab Results - Last 24 Hours (Table) 03/29/18 03/29/18 03/29/18 Range/Units 07:18 07:18 07:18 RBC 3.64 L (3.80-5.40) m/uL Hgb 11.0 L (11.4-16.0) gm/dL Lymphocytes # 0.9 L (1.0-4.8) k/uL ESR 48 H (0-20) mm/hr PT 21.8 H (9.0-12.0) sec INR 2.2 H (<1.2) Albumin 3.3 L (3.5-5.0) g/dL Microbiology - Last 24 Hours (Table) 03/28/18 00:40 Blood Culture - Preliminary Blood No Growth after 24 hours Assessment and Plan Plan: #1 Left wrist cellulitis, possible osteomyelitis, possible septic joint Continue with current antibiotics awaiting input from infectious disease, awaiting results of bone scan #2 right pretibial cellulitis, this has been an ongoing problem patient was admitted to the hospital 2 month ago she received IV antibiotic she was sent home on oral antibiotic however her symptoms continue to recur will assess if PICC line and IV antibiotic at home is indicated. Patient has a known history of septic right knee joint requiring removal of hardware of the right total knee replacement. #3 history of pulmonary embolism maintained on Coumadin INR is 2.2 Will monitor closely due to interaction with antibiotics #4 acute kidney injury elevated BUN at 28 elevated creatinine at 1.1 improved BUN today is 16 and creatinine 0.8 #5 underlying history of gout maintained on allopurinol no evidence of acute gout attack at this time continue current dose. #6 underlying history of hypertension, blood pressure is well-controlled continue current medications #7 underlying history of hyperlipidemia maintained on Pravachol continue. #8 mild hyperglycemia on presentation glucose 115 with check hemoglobin A1c #9 physical debility due to absent right knee joint, deconditioning, left wrist pain which prevent her from using her walker patient may need rehab or ECF placement after this admission
--- NOTE | 2018-03-29 17:58 | P.PN ---
Subjective Progress Note Date: 03/29/18 72-year-old female with a very complex past medical history who has macular degeneration with multiple vitrectomies with poor vision and history of falls and many surgeries, presents to hospital with sudden and worsening pain to her left wrist. This is of great difficulty because of her orthopedic complaints she relies on her hands to push herself up to a sitting and standing position. With the sudden onset of pain to her left wrist she was no longer able to push herself up and called EMS for herself to be transported to hospital. Her is currently in hospital with pneumonia and known was able to help her in the home setting. It is not clear that she was have any fevers or chills but does have severe pain to the left wrist. It is painful to range of motion and any pressure on it causes her to cry out in pain. Does have a known history of gout but doesn't believe she's had it in the wrist in the past. She's had extensive surgical intervention to that wrist with orthopedis. The ulnar was too long and consequently it was shortened and plated, she does have reduced range of motion to the area. However she's not had pain like this in this area in the past. 03/29/2018 patient is starting to feel better. Pain is improved and that she is actually able to hold a full container with her left hand when she is eating. She's having no further fevers or chills. No other new acute joint complaints. Objective - Vital Signs Vital signs: Vital Signs Temp 98.3 F 03/29/18 15:00 Pulse 69 03/29/18 15:00 Resp 16 03/29/18 15:00 BP 115/64 03/29/18 15:00 Pulse Ox 93 L 03/29/18 15:00 Intake & Output 03/28/18 03/29/18 03/29/18 18:59 06:59 18:59 Intake Total 1125 Output Total 900 375 500 Balance 225 -375 -500 Weight 117.934 kg Intake: Intake, IV Titration 525 Amount Sodium Chloride 0.9% 1, 525 000 ml @ 75 mls/hr IV . [id number] [facility] Rx#:[id number] Oral 600 Output: Urine 900 375 500 Other: Voiding Method Bedpan Bedpan Bedpan # Voids 6 # Bowel Movements 1 - Exam Pleasant obese woman complains of pain to her left wrist, making it difficult to sit up in bed HEENT: Anicteric conjunctiva are pink and moist nasal mucosa grossly intact without significant lesions, there is no thrush. Neck: The neck is supple without significant lymphadenopathy or thyromegaly. Lungs: Symmetrical air entry, expiratory wheezes are scattered no bronchial sounds normal dullness or egophony Heart: Irregular audible S1 and S2 soft S4 no distinct murmur click or a PMI was nondisplaced Abdomen: Obese, Positive bowel sounds soft and nontender without palpable masses or organomegaly. There was no guarding or rebound. Extremities: Right upper extremities without acute abnormalities. Left upper extremity reveals evidence of the distinct tenderness on the lateral aspect of the wrist to the palm. Range of motion in pressure caused her to call out in pain. The surgical site from the orthopedic procedure is well-healed without crepitance or fluctuance. No evidence of any lesions or lacerations on the palmar wrist are noted The lower extremities have some chronic edema right is considerably worse than the left. She is evidence of the multiple surgical interventions to the right knee, or there is been the chronic infection, she has chronic edema and chronic venous stasis changes. Neuro: Awake alert oriented to person place and time. Very poor vision but no other new acute gross focal sensory motor deficits - Labs CBC & Chem 7: 03/29/18 07:18 03/29/18 07:18 Labs: Abnormal Lab Results - Last 24 Hours (Table) 03/29/18 03/29/18 03/29/18 Range/Units 07:18 07:18 07:18 RBC 3.64 L (3.80-5.40) m/uL Hgb 11.0 L (11.4-16.0) gm/dL Lymphocytes # 0.9 L (1.0-4.8) k/uL ESR 48 H (0-20) mm/hr PT 21.8 H (9.0-12.0) sec INR 2.2 H (<1.2) Albumin 3.3 L (3.5-5.0) g/dL Microbiology - Last 24 Hours (Table) 03/28/18 00:40 Blood Culture - Preliminary Blood No Growth after 24 hours Laboratory Results WBC 5.9 k/uL (3.8-10.6) 03/29/18 07:18 RBC 3.64 m/uL (3.80-5.40) L 03/29/18 07:18 Hgb 11.0 gm/dL (11.4-16.0) L 03/29/18 07:18 Hct 34.2 % (34.0-46.0) 03/29/18 07:18 MCV 93.8 fL (80.0-100.0) 03/29/18 07:18 MCH 30.3 pg (25.0-35.0) 03/29/18 07:18 MCHC 32.3 g/dL (31.0-37.0) 03/29/18 07:18 RDW 14.5 % (11.5-15.5) 03/29/18 07:18 Plt Count 261 k/uL (150-450) 03/29/18 07:18 Neutrophils % 74 % 03/29/18 07:18 Lymphocytes % 16 % 03/29/18 07:18 Monocytes % 5 % 03/29/18 07:18 Eosinophils % 2 % 03/29/18 07:18 Basophils % 1 % 03/29/18 07:18 Neutrophils # 4.4 k/uL (1.3-7.7) 03/29/18 07:18 Lymphocytes # 0.9 k/uL (1.0-4.8) L 03/29/18 07:18 Monocytes # 0.3 k/uL (0-1.0) 03/29/18 07:18 Eosinophils # 0.1 k/uL (0-0.7) 03/29/18 07:18 Basophils # 0.0 k/uL (0-0.2) 03/29/18 07:18 ESR 48 mm/hr (0-20) H 03/29/18 07:18 PT 21.8 sec (9.0-12.0) H 03/29/18 07:18 INR 2.2 (<1.2) H 03/29/18 07:18 Sodium 140 mmol/L (137-145) 03/29/18 07:18 Potassium 4.2 mmol/L (3.5-5.1) 03/29/18 07:18 Chloride 106 mmol/L (98-107) 03/29/18 07:18 Carbon Dioxide 26 mmol/L (22-30) 03/29/18 07:18 Anion Gap 8 mmol/L 03/29/18 07:18 BUN 16 mg/dL (7-17) 03/29/18 07:18 Creatinine 0.80 mg/dL (0.52-1.04) 03/29/18 07:18 Est GFR (CKD-EPI)AfAm 85 (>60 ml/min/1.73 sqM) 03/29/18 07:18 Est GFR (CKD-EPI)NonAf 74 (>60 ml/min/1.73 sqM) 03/29/18 07:18 Glucose 99 mg/dL (74-99) 03/29/18 07:18 Plasma Lactic Acid Ananth 1.0 mmol/L (0.7-2.0) 03/28/18 00:15 Uric Acid 5.7 mg/dL (3.7-7.4) 03/28/18 00:10 Calcium 8.9 mg/dL (8.4-10.2) 03/29/18 07:18 Total Bilirubin 0.9 mg/dL (0.2-1.3) 03/29/18 07:18 AST 23 U/L (14-36) 03/29/18 07:18 ALT 20 U/L (9-52) 03/29/18 07:18 Alkaline Phosphatase 95 U/L (38-126) 03/29/18 07:18 C-Reactive Protein 37.2 mg/L (<10.0) H 03/28/18 00:10 Total Protein 6.3 g/dL (6.3-8.2) 03/29/18 07:18 Albumin 3.3 g/dL (3.5-5.0) L 03/29/18 07:18 Microbiology 03/28/18 00:40 Blood Blood Culture - Preliminary No Growth after 24 hours Assessment and Plan (1) Cellulitis of left hand Current Visit: Yes Status: Acute Code(s): L03.114 - CELLULITIS OF LEFT UPPER LIMB SNOMED Code(s): 53207978 (2) Pain in joint of left wrist Narrative/Plan: 72-year-old female with multiple medical troubles presents to Hospital with severe pain into her left wrist. Because of her many orthopedic issues she relies on her arms hands and wrists to arise from a sitting position and utilize her walker. Because of the severe pain she was unable to get up from the bed, with her in hospital she called EMS to be transported to the emergency center. She continues to have severe pain to the left wrist but it is improving since coming to hospital and receiving current medications. There is evidence of an elevated creatinine and her CRP was also markedly elevated. Consider concerns to the left wrist area. Uric acid level was normal and she is on chronic therapy with allopurinol. We'll obtain a bone scan to evaluate the left wrist area. ESR will also be obtained. CARLOS A painter to help lower extremity chronic edema Gigi 2018 patient has had some slight improvement in the last day with treatments of pain control as well as antibiotic therapy with vancomycin. The sed rate and CRP are markedly elevated which is concerning. Bone scan has been requested and is currently pending. This will further help direct her course of outpatient therapy. Potentially will go home on intravenous antibiotic therapy. Current Visit: Yes Status: Acute Code(s): M25.532 - PAIN IN LEFT WRIST SNOMED Code(s): 701815702
[2018-03-29] MEDS ORDERED: WARFARIN 2.5 MG TAB PO ONE (18:00)
[2018-03-30] MEDS: VANCOMYCIN 1,750 MG in SODIUM CHLORIDE 0.9% 500 ML 500 ML IVPB SCH ×2 (01:45→17:18)
[2018-03-30] MEDS: SODIUM CHLORIDE 0.9% 1,000 ML IV SCH ×2 (05:12→20:34)
[2018-03-30] MEDS: ACETAMINOPHEN TAB 325 MG TAB PO PRN ×3 (08:11→21:32)
[2018-03-30] MEDS: POTASSIUM CHLORIDE ER 20 MEQ TAB.ER PO SCH (08:12)
[2018-03-30] MEDS: FUROSEMIDE 40 MG TAB PO SCH (08:12)
[2018-03-30] MEDS: amLODIPine 5 MG TAB PO SCH (08:12)
[2018-03-30] MEDS: PRAVASTATIN SODIUM 20 MG TAB PO SCH (08:12)
[2018-03-30] MEDS: ISOSORBIDE MONONITRATE ER 30 MG TAB.ER.24H PO SCH (08:12)
[2018-03-30] MEDS: LISINOPRIL 20 MG TAB PO SCH ×2 (08:12→15:39)
[2018-03-30] MEDS: ALLOPURINOL 300 MG TAB PO SCH (08:13)
[2018-03-30] MEDS: LORazepam 0.5 MG TAB PO SCH ×2 (08:13→20:34)
[2018-03-30] MEDS: MULTIVITAMINS, THERA 1 EACH TAB PO SCH (08:13)
[2018-03-30] MEDS: METOPROLOL TARTRATE 25 MG TAB PO SCH ×2 (08:13→20:34)
[2018-03-30] MEDS: PANTOPRAZOLE 40 MG TABLET PO SCH (08:13)
[2018-03-30] MEDS: PARoxetine 10 MG TAB PO SCH ×2 (08:16→21:32)
[2018-03-30 08:17] LABS: Basophils % (A) 0 %; Eosinophils # (A) 0.1 k/uL (0-0.7); Eosinophils % (A) 2 %; HCT 34.6 % (34.0-46.0); HGB 11.1 gm/dL (11.4-16.0); Lymphocytes % (A) 17 %; MCV 93.8 fL (80.0-100.0); Monocytes # (A) 0.3 k/uL (0-1.0); Monocytes % (A) 5 %; Neutrophils # (A) 4.3 k/uL (1.3-7.7); Neutrophils % (A) 73 %; Platelet Count 279 k/uL (150-450); RBC 3.69 m/uL (3.80-5.40); RDW 14.5 % (11.5-15.5); WBC 5.9 k/uL (3.8-10.6)
[2018-03-30 08:28] LABS: Albumin 3.6 g/dL (3.5-5.0); Calcium 9.1 mg/dL (8.4-10.2); Potassium 4.4 mmol/L (3.5-5.1); Total Bilirubin 0.6 mg/dL (0.2-1.3); Total Protein 6.6 g/dL (6.3-8.2)
[2018-03-30 08:45] LABS: Prothrombin Time 19.7 sec (9.0-12.0)
[2018-03-30 09:00] LABS: Hemoglobin A1C 5.6 % (4.0-6.0)
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
[2018-03-30] MEDS ORDERED: WARFARIN 2 MG TAB PO ONE (18:00)
[2018-03-31] MEDS: ACETAMINOPHEN TAB 325 MG TAB PO PRN ×3 (05:17→23:11)
[2018-03-31] MEDS: SODIUM CHLORIDE 0.9% 1,000 ML IV SCH (08:10)
[2018-03-31] MEDS: MULTIVITAMINS, THERA 1 EACH TAB PO SCH (08:48)
[2018-03-31] MEDS: PRAVASTATIN SODIUM 20 MG TAB PO SCH (08:48)
[2018-03-31] MEDS: LISINOPRIL 20 MG TAB PO SCH ×2 (08:48→16:55)
[2018-03-31] MEDS: amLODIPine 5 MG TAB PO SCH (08:49)
[2018-03-31] MEDS: FUROSEMIDE 40 MG TAB PO SCH (08:49)
[2018-03-31] MEDS: PANTOPRAZOLE 40 MG TABLET PO SCH (08:49)
[2018-03-31] MEDS: PARoxetine 10 MG TAB PO SCH ×2 (08:49→20:23)
[2018-03-31] MEDS: LORazepam 0.5 MG TAB PO SCH ×2 (08:49→20:23)
[2018-03-31] MEDS: POTASSIUM CHLORIDE ER 20 MEQ TAB.ER PO SCH (08:49)
[2018-03-31] MEDS: ALLOPURINOL 300 MG TAB PO SCH (08:49)
[2018-03-31] MEDS: METOPROLOL TARTRATE 25 MG TAB PO SCH ×2 (08:49→20:23)
[2018-03-31] MEDS: ISOSORBIDE MONONITRATE ER 30 MG TAB.ER.24H PO SCH (08:49)
[2018-03-31 09:13] LABS: INR 2.1 (<1.2); Prothrombin Time 20.8 sec (9.0-12.0)
[2018-03-31 09:24] LABS: Albumin 3.3 g/dL (3.5-5.0); Calcium 8.5 mg/dL (8.4-10.2); Potassium 4.3 mmol/L (3.5-5.1); Total Bilirubin 0.5 mg/dL (0.2-1.3); Total Protein 6.1 g/dL (6.3-8.2)
[2018-03-31 09:31] LABS: HCT 33.1 % (34.0-46.0); HGB 10.6 gm/dL (11.4-16.0); MCH 30.4 pg (25.0-35.0); MCHC 32.1 g/dL (31.0-37.0); MCV 94.7 fL (80.0-100.0); Platelet Count 295 k/uL (150-450); RBC 3.49 m/uL (3.80-5.40); RDW 14.7 % (11.5-15.5); WBC 5.3 k/uL (3.8-10.6)
[2018-03-31 10:31] LABS: Eosinophils # (M) 0.11 k/uL (0-0.7); Lymphocytes # (M) 1.17 k/uL (1.0-4.8); Monocytes # (M) 0.27 k/uL (0-1.0); Neutrophils # (M) 3.76 k/uL (1.3-7.7); Neutrophils % (M) 71 %; Nucleated Red Blood Cells 0 /100 WBC (0-0); Poikilocytosis (M) Present; Total Cells Counted 100
[2018-03-31] MEDS: VANCOMYCIN 1,750 MG in SODIUM CHLORIDE 0.9% 500 ML 500 ML IVPB SCH (11:21)
--- NOTE | 2018-03-31 11:44 | XR ---
EXAMINATION TYPE: XR chest 1V portable DATE OF EXAM: 03/31/2018 COMPARISON: 02/11/2018 HISTORY: Wheezing. Shortness of breath. TECHNIQUE: Single frontal view of the chest is obtained. FINDINGS: There is slight interstitial prominence. Right hilar fullness is unchanged from the prior. Cardia mediastinal silhouette is mildly enlarged. There is engorgement of the superior vena cava/azyg os confluence. There is no focal air space opacity, pleural effusion, or pneumothorax seen. The osse ous structures are intact. IMPRESSION: Cardiomegaly, interstitial prominence and engorgement of the superior vena cava suggest cardiogenic fluid overload. Right hilar fullness is chronic and may relate to underlying pulmonary ar terial hypertension.
[2018-03-31] MEDS: IPRATROPIUM-ALBUTEROL 3 ML NEB INHALATION SCH ×3 (13:10→19:34)
[2018-03-31] MEDS ORDERED: FUROSEMIDE 10 MG/ML 2 ML VIAL IV ONE (14:03)
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
[2018-03-31] MEDS ORDERED: WARFARIN 2 MG TAB PO ONE (18:00)
[2018-04-01] MEDS ORDERED: VANCOMYCIN TROUGH DUE 1 EACH MISC MISCELLANE ONE (01:00)
[2018-04-01] MEDS: VANCOMYCIN 1,750 MG in SODIUM CHLORIDE 0.9% 500 ML 500 ML IVPB SCH ×2 (02:32→17:50)
[2018-04-01 08:13] LABS: Basophils % (A) 1 %; Eosinophils # (A) 0.2 k/uL (0-0.7); Eosinophils % (A) 3 %; HGB 11.4 gm/dL (11.4-16.0); Lymphocytes # (A) 0.9 k/uL (1.0-4.8); Lymphocytes % (A) 15 %; MCH 30.5 pg (25.0-35.0); MCHC 32.6 g/dL (31.0-37.0); MCV 93.6 fL (80.0-100.0); Mean Platelet Volume 6.8; Monocytes # (A) 0.3 k/uL (0-1.0); Monocytes % (A) 6 %; Neutrophils # (A) 4.2 k/uL (1.3-7.7); Neutrophils % (A) 72 %; Platelet Count 282 k/uL (150-450); RBC 3.74 m/uL (3.80-5.40); RDW 14.5 % (11.5-15.5); WBC 5.9 k/uL (3.8-10.6)
[2018-04-01 08:32] LABS: Albumin 3.6 g/dL (3.5-5.0); Calcium 9.3 mg/dL (8.4-10.2); Potassium 4.7 mmol/L (3.5-5.1); Total Bilirubin 0.7 mg/dL (0.2-1.3); Total Protein 6.7 g/dL (6.3-8.2)
[2018-04-01 08:33] LABS: INR 2.4 (<1.2); Prothrombin Time 23.5 sec (9.0-12.0)
[2018-04-01] MEDS: PRAVASTATIN SODIUM 20 MG TAB PO SCH (08:40)
[2018-04-01] MEDS: POTASSIUM CHLORIDE ER 20 MEQ TAB.ER PO SCH (08:40)
[2018-04-01] MEDS: PANTOPRAZOLE 40 MG TABLET PO SCH (08:40)
[2018-04-01] MEDS: LISINOPRIL 20 MG TAB PO SCH ×2 (08:40→17:53)
[2018-04-01] MEDS: ISOSORBIDE MONONITRATE ER 30 MG TAB.ER.24H PO SCH (08:40)
[2018-04-01] MEDS: FUROSEMIDE 40 MG TAB PO SCH (08:40)
[2018-04-01] MEDS: amLODIPine 5 MG TAB PO SCH (08:40)
[2018-04-01] MEDS: METOPROLOL TARTRATE 25 MG TAB PO SCH ×2 (08:40→20:23)
[2018-04-01] MEDS: LORazepam 0.5 MG TAB PO SCH ×2 (08:40→20:23)
[2018-04-01] MEDS: MULTIVITAMINS, THERA 1 EACH TAB PO SCH (08:40)
[2018-04-01] MEDS: ALLOPURINOL 300 MG TAB PO SCH (08:40)
[2018-04-01] MEDS: PARoxetine 10 MG TAB PO SCH ×2 (08:41→20:23)
[2018-04-01] MEDS: IPRATROPIUM-ALBUTEROL 3 ML NEB INHALATION SCH ×4 (09:09→19:47)
[2018-04-01] MEDS: ACETAMINOPHEN TAB 325 MG TAB PO PRN ×2 (10:45→20:22)
[2018-04-01] MEDS ORDERED: DIAZEPAM 5 MG TAB PO PRN (11:29)
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
[2018-04-01] MEDS ORDERED: WARFARIN 2 MG TAB PO ONE (18:00)
[2018-04-02] MEDS: IPRATROPIUM-ALBUTEROL 3 ML NEB INHALATION SCH ×4 (08:33→20:25)
[2018-04-02] MEDS: ALLOPURINOL 300 MG TAB PO SCH (09:22)
[2018-04-02] MEDS: LISINOPRIL 20 MG TAB PO SCH ×2 (09:22→17:34)
[2018-04-02] MEDS: ISOSORBIDE MONONITRATE ER 30 MG TAB.ER.24H PO SCH (09:23)
[2018-04-02] MEDS: METOPROLOL TARTRATE 25 MG TAB PO SCH ×2 (09:23→20:44)
[2018-04-02] MEDS: FUROSEMIDE 40 MG TAB PO SCH (09:23)
[2018-04-02] MEDS: amLODIPine 5 MG TAB PO SCH (09:23)
[2018-04-02] MEDS: MULTIVITAMINS, THERA 1 EACH TAB PO SCH (09:23)
[2018-04-02] MEDS: LORazepam 0.5 MG TAB PO SCH ×2 (09:23→20:44)
[2018-04-02] MEDS: PRAVASTATIN SODIUM 20 MG TAB PO SCH (09:24)
[2018-04-02] MEDS: PARoxetine 10 MG TAB PO SCH ×2 (09:24→20:44)
[2018-04-02] MEDS: PANTOPRAZOLE 40 MG TABLET PO SCH (09:24)
[2018-04-02] MEDS: POTASSIUM CHLORIDE ER 20 MEQ TAB.ER PO SCH (09:24)
[2018-04-02] MEDS: VANCOMYCIN 1,750 MG in SODIUM CHLORIDE 0.9% 500 ML 500 ML IVPB SCH (09:25)
[2018-04-02 09:32] LABS: Basophils % (A) 1 %; Eosinophils # (A) 0.2 k/uL (0-0.7); Eosinophils % (A) 4 %; HCT 36.1 % (34.0-46.0); HGB 11.8 gm/dL (11.4-16.0); Lymphocytes # (A) 1.1 k/uL (1.0-4.8); Lymphocytes % (A) 20 %; MCH 30.8 pg (25.0-35.0); MCHC 32.7 g/dL (31.0-37.0); MCV 94.1 fL (80.0-100.0); Monocytes # (A) 0.3 k/uL (0-1.0); Monocytes % (A) 6 %; Neutrophils # (A) 3.8 k/uL (1.3-7.7); Neutrophils % (A) 67 %; Platelet Count 306 k/uL (150-450); RBC 3.84 m/uL (3.80-5.40); RDW 14.6 % (11.5-15.5); WBC 5.6 k/uL (3.8-10.6)
[2018-04-02] MEDS: ACETAMINOPHEN TAB 325 MG TAB PO PRN ×2 (09:37→19:34)
[2018-04-02 09:41] LABS: INR 2.4 (<1.2); Prothrombin Time 22.9 sec (9.0-12.0)
[2018-04-02 09:45] LABS: Albumin 3.7 g/dL (3.5-5.0); Calcium 9.4 mg/dL (8.4-10.2); Potassium 4.4 mmol/L (3.5-5.1); Total Bilirubin 0.7 mg/dL (0.2-1.3); Total Protein 6.8 g/dL (6.3-8.2)
[2018-04-02 09:51] LABS: Glucose,Whole Blood 123 mg/dL (75-99)
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
[2018-04-02] MEDS ORDERED: WARFARIN 2 MG TAB PO ONE (18:00)
[2018-04-03] MEDS: VANCOMYCIN 1,750 MG in SODIUM CHLORIDE 0.9% 500 ML 500 ML IVPB SCH ×2 (02:09→17:11)
[2018-04-03] MEDS: ACETAMINOPHEN TAB 325 MG TAB PO PRN ×2 (04:16→20:59)
[2018-04-03] MEDS: POTASSIUM CHLORIDE ER 20 MEQ TAB.ER PO SCH (07:50)
[2018-04-03] MEDS: PANTOPRAZOLE 40 MG TABLET PO SCH (07:50)
[2018-04-03] MEDS: MULTIVITAMINS, THERA 1 EACH TAB PO SCH (07:50)
[2018-04-03] MEDS: PRAVASTATIN SODIUM 20 MG TAB PO SCH (07:51)
[2018-04-03] MEDS: PARoxetine 10 MG TAB PO SCH ×2 (07:51→20:59)
[2018-04-03] MEDS: amLODIPine 5 MG TAB PO SCH (07:51)
[2018-04-03] MEDS: LORazepam 0.5 MG TAB PO SCH ×2 (07:51→20:59)
[2018-04-03] MEDS: METOPROLOL TARTRATE 25 MG TAB PO SCH ×2 (07:51→20:59)
[2018-04-03] MEDS: LISINOPRIL 20 MG TAB PO SCH ×2 (07:51→17:11)
[2018-04-03] MEDS: ISOSORBIDE MONONITRATE ER 30 MG TAB.ER.24H PO SCH (07:51)
[2018-04-03] MEDS: FUROSEMIDE 40 MG TAB PO SCH (07:51)
[2018-04-03] MEDS: ALLOPURINOL 300 MG TAB PO SCH (07:51)
[2018-04-03] MEDS: IPRATROPIUM-ALBUTEROL 3 ML NEB INHALATION SCH ×4 (07:57→20:47)
[2018-04-03 10:41] LABS: Basophils # (A) 0.1 k/uL (0-0.2); Basophils % (A) 1 %; Eosinophils # (A) 0.2 k/uL (0-0.7); Eosinophils % (A) 3 %; HCT 35.8 % (34.0-46.0); HGB 11.4 gm/dL (11.4-16.0); Lymphocytes # (A) 1.2 k/uL (1.0-4.8); Lymphocytes % (A) 17 %; MCH 30.2 pg (25.0-35.0); MCHC 31.9 g/dL (31.0-37.0); MCV 94.6 fL (80.0-100.0); Mean Platelet Volume 6.9; Monocytes # (A) 0.4 k/uL (0-1.0); Monocytes % (A) 6 %; Neutrophils # (A) 4.8 k/uL (1.3-7.7); Neutrophils % (A) 70 %; Platelet Count 323 k/uL (150-450); RBC 3.78 m/uL (3.80-5.40); RDW 14.7 % (11.5-15.5)
[2018-04-03 10:52] LABS: INR 2.4 (<1.2); Prothrombin Time 23.5 sec (9.0-12.0)
[2018-04-03 10:53] LABS: Albumin 3.8 g/dL (3.5-5.0); Calcium 9.3 mg/dL (8.4-10.2); Potassium 4.5 mmol/L (3.5-5.1); Total Bilirubin 0.5 mg/dL (0.2-1.3); Total Protein 6.9 g/dL (6.3-8.2)
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
[2018-04-03] MEDS ORDERED: WARFARIN 2 MG TAB PO SCH (18:00)
[2018-04-04 07:31] VITALS: BP 109/68; RESP 16; TEMP 97.9
[2018-04-04] MEDS: IPRATROPIUM-ALBUTEROL 3 ML NEB INHALATION SCH ×2 (07:46→11:55)
[2018-04-04] MEDS: LISINOPRIL 20 MG TAB PO SCH (08:15)
[2018-04-04] MEDS: PARoxetine 10 MG TAB PO SCH (08:15)
[2018-04-04] MEDS: ISOSORBIDE MONONITRATE ER 30 MG TAB.ER.24H PO SCH (08:16)
[2018-04-04] MEDS: FUROSEMIDE 40 MG TAB PO SCH (08:16)
[2018-04-04] MEDS: ALLOPURINOL 300 MG TAB PO SCH (08:16)
[2018-04-04] MEDS: METOPROLOL TARTRATE 25 MG TAB PO SCH (08:16)
[2018-04-04] MEDS: MULTIVITAMINS, THERA 1 EACH TAB PO SCH (08:16)
[2018-04-04] MEDS: PANTOPRAZOLE 40 MG TABLET PO SCH (08:16)
[2018-04-04] MEDS: LORazepam 0.5 MG TAB PO SCH (08:16)
[2018-04-04] MEDS: POTASSIUM CHLORIDE ER 20 MEQ TAB.ER PO SCH (08:16)
[2018-04-04] MEDS: PRAVASTATIN SODIUM 20 MG TAB PO SCH (08:16)
[2018-04-04] MEDS: amLODIPine 5 MG TAB PO SCH (08:16)
[2018-04-04 09:22] LABS: Albumin 3.9 g/dL (3.5-5.0); Calcium 9.3 mg/dL (8.4-10.2); Potassium 4.4 mmol/L (3.5-5.1); Total Bilirubin 0.7 mg/dL (0.2-1.3); Total Protein 6.9 g/dL (6.3-8.2)
[2018-04-04 09:31] LABS: HCT 35.4 % (34.0-46.0); HGB 11.4 gm/dL (11.4-16.0); MCH 30.7 pg (25.0-35.0); MCHC 32.3 g/dL (31.0-37.0); Mean Platelet Volume 6.8; Platelet Count 329 k/uL (150-450); RBC 3.73 m/uL (3.80-5.40); RDW 14.8 % (11.5-15.5); WBC 5.8 k/uL (3.8-10.6)
[2018-04-04 09:41] LABS: INR 2.5 (<1.2); Prothrombin Time 24.1 sec (9.0-12.0)
[2018-04-04 10:45] LABS: Eosinophils # (M) 0.29 k/uL (0-0.7); Lymphocytes # (M) 1.51 k/uL (1.0-4.8); Monocytes # (M) 0.17 k/uL (0-1.0); Neutrophils # (M) 3.83 k/uL (1.3-7.7); Neutrophils % (M) 66 %; Nucleated Red Blood Cells 0 /100 WBC (0-0); Total Cells Counted 100
[2018-04-04 10:46] LABS: Anisocytosis (M) Present; Poikilocytosis (M) Present
[2018-04-04] MEDS: VANCOMYCIN 1,750 MG in SODIUM CHLORIDE 0.9% 500 ML 500 ML IVPB SCH (11:24)
[2018-04-04] MEDS: ACETAMINOPHEN TAB 325 MG TAB PO PRN (11:29)
[2018-04-04 12:06] VITALS: PULSE 80
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
== END 2018-04-04 15:11 | disposition home health service (06) | DRG 602 ==
LOC: EC 22:50 → 4SSUR 03-28 01:03
PROVIDERS: ADMIT Internal Medicine; ATTEND Internal Medicine
DX: L03.114 Cellulitis of left upper limb (principal); I50.33 Acute on chronic diastolic (congestive) heart failure; L03.115 Cellulitis of right lower limb; N17.9 Acute kidney failure, unspecified; I11.0 Hypertensive heart disease with heart failure; E78.5 Hyperlipidemia, unspecified; F32.9 Major depressive disorder, single episode, unspecified; F41.1 Generalized anxiety disorder; H35.30 Unspecified macular degeneration; H54.62 Unqualified visual loss, left eye, normal vision right eye; I27.21 Secondary pulmonary arterial hypertension; K21.9 Gastro-esophageal reflux disease without esophagitis; M19.90 Unspecified osteoarthritis, unspecified site; Z79.01 Long term (current) use of anticoagulants; Z79.899 Other long term (current) drug therapy; Z82.3 Family history of stroke; Z82.49 Family history of ischemic heart disease and other diseases of the circulatory system; Z86.711 Personal history of pulmonary embolism; Z90.710 Acquired absence of both cervix and uterus; Z91.81 History of falling; Z89.521 Acquired absence of right knee; Z80.9 Family history of malignant neoplasm, unspecified; Z88.6 Allergy status to analgesic agent; Z88.1 Allergy status to other antibiotic agents; Z88.5 Allergy status to narcotic agent; I87.8 Other specified disorders of veins; M81.0 Age-related osteoporosis without current pathological fracture; Z87.440 Personal history of urinary (tract) infections; R73.9 Hyperglycemia, unspecified; Z98.42 Cataract extraction status, left eye; Z98.41 Cataract extraction status, right eye; R53.81 Other malaise; Z89.022 Acquired absence of left finger(s); Z88.8 Allergy status to other drugs, medicaments and biological substances; Z91.011 Allergy to milk products
CPT/HCPCS: 36415; 71045; 78315; 80048; 80053; 80202; 83036; 83605; 83880; 84550; 85025; 85610; 85652; 86140; 87040; 94640; 96365; 96366; 96368; 99284

== ENCOUNTER → 2018-05-05 | Outpatient (CLI) | payer MEDICARE, OTHER ==
--- NOTE | 2018-05-06 14:27 | NM ---
EXAMINATION TYPE: NM WBC limited DATE OF EXAM: 05/06/2018 COMPARISON: Three-phase nuclear medicine bone scan dated 03/29/2018. Left hand radiographs dated 2017 HISTORY: Left wrist pain with concern for cellulitis. TECHNIQUE: Following administration of 14.8 mCi Tc99m Ceretec. Images obtained 4 hour(s) and 24 aramis r(s) post injection. FINDINGS: Small focal radiotracer accumulation is seen within the medial carpal bones of the dorsal left wrist on the 4 hour images only with dissipation on the 24-hour images. Symmetric radiotracer uptake is see n throughout the bilateral wrists on the 24-hour images with no findings to suggest focal osteomyelit is. IMPRESSION: No findings to suggest osteomyelitis. No asymmetric uptake within the wrists on delayed imaging.
== END | disposition home or self-care (01) ==
LOC: RADNMMAIN 07:08
PROVIDERS: ATTEND Internal Medicine
DX: M25.532 Pain in left wrist (principal); L03.114 Cellulitis of left upper limb
CPT/HCPCS: 78805; A9569

== ENCOUNTER → 2018-05-24 | Outpatient (CLI) | payer MEDICARE, OTHER ==
[2018-05-24 14:43] VITALS: BP 111/57; PULSE 66; RESP 18; TEMP 98.3
== END ==
LOC: PROCWHC3 14:01
PROVIDERS: ATTEND Internal Medicine
DX: M81.0 Age-related osteoporosis without current pathological fracture (principal)
CPT/HCPCS: 96372; J0897

== ENCOUNTER → 2018-09-28 | Outpatient (CLI) | payer MEDICARE ==
--- NOTE | 2018-10-03 07:47 | MM ---
Reason for exam: screening (asymptomatic). Last mammogram was performed 1 year and 7 months ago. History: Patient is postmenopausal. Cancelled Right Mammotome of the right breast, January 26, 2011. Took estrogen for 10 years beginning at age 43. Took progesterone for 10 years beginning at age 43. Physical Findings: A clinical breast exam by your physician is recommended on an annual basis and results should be correlated with mammographic findings. MG 3D Screening Mammo W/Cad Bilateral CC and MLO view(s) were taken. XCCL view(s) were taken of the left breast. Prior study comparison: February 24, 2017, bilateral MG 3d screening mammo w/cad. December 23, 2015, bilateral MG screening mammo w CAD. The breast tissue is heterogeneously dense. This may lower the sensitivity of mammography. Increasing secretory calcifications in the left breast. No significant new finding when compared with prior studies. Persistent left sided skin fold due to patient's difficulty in positioning. ASSESSMENT: Negative, BI-RAD 1 RECOMMENDATION: Routine screening mammogram of both breasts in 1 year.
== END | disposition home or self-care (01) ==
LOC: RADMAMWWP 12:55
PROVIDERS: ATTEND Internal Medicine
DX: Z12.31 Encounter for screening mammogram for malignant neoplasm of breast (principal)
CPT/HCPCS: 77063; 77067

== ENCOUNTER 2018-10-27 20:59 | Inpatient (IN) | payer MEDICARE ==
[2018-10-27] MEDS ORDERED: SODIUM CHLORIDE 0.9% 1,000 ML IV STA (21:01)
[2018-10-27] MEDS ORDERED: ACETAMINOPHEN TAB 500 MG TAB PO STA (21:14)
--- NOTE | 2018-10-27 21:14 | ED ---
Fever HPI - General Stated Complaint: fever Time Seen by Provider: 10/27/18 21:01 Source: RN notes reviewed, old records reviewed - History of Present Illness Initial Comments: This is a 73-year-old female the ER for evaluation. Patient does say for evaluation of fever and weakness patient states that she just does not feel wel l. No recent change in medications no travel history no known sick contacts no nausea vomiting diarrhea, no cough or congestion, no abdominal pain. No rashes noted. No dysuria noted. No sore throat or earache. MD Complaint: fever, weakness -: unknown Temperature Source: subjective Context: sick contacts, multiple patients with similar symptoms Treatments Prior to Arrival: none - Related Data Home Medications Medication Instructions Recorded Confirmed Allopurinol [Zyloprim] 300 mg PO DAILY 08/21/14 10/27/18 Furosemide [Lasix] 40 mg PO DAILY 08/21/14 10/27/18 Potassium Chloride [Klor-Con 20] 20 meq PO DAILY 08/21/14 10/27/18 diphenhydrAMINE HCL [Benadryl] 25 mg PO HS 08/21/14 10/27/18 Lisinopril [Zestril] 20 mg PO BID@0800,1600 11/17/15 10/27/18 Metoprolol Tartrate [Lopressor] 25 mg PO BID 11/17/15 10/27/18 Multivitamins, Thera [Multivitamin 1 tab PO DAILY 11/17/15 10/27/18 (formulary)] Vit A/Vit C/Vit E/Zinc/Copper 1 cap PO DAILY 11/17/15 10/27/18 [ICAPS SOFTGEL] amLODIPine [Norvasc] 5 mg PO QAM 07/03/16 10/27/18 Acetaminophen Tab [Tylenol] 650 mg PO Q6H PRN 02/02/18 10/27/18 Cyclobenzaprine [Flexeril] 10 mg PO BID PRN 02/02/18 10/27/18 Isosorbide Mononitrate ER [Imdur] 30 mg PO DAILY 02/02/18 10/27/18 Omeprazole 20 mg PO DAILY 02/02/18 10/27/18 Pravastatin Sodium [Pravachol] 20 mg PO DAILY 02/02/18 10/27/18 PARoxetine HCL [Paxil] 30 mg PO BID 03/27/18 10/27/18 Ascorbic Acid [Vitamin C] 500 mg PO DAILY 10/27/18 10/27/18 Aspirin EC [Ecotrin] 325 mg PO DAILY 10/27/18 10/27/18 Calcium Carbonate/Vitamin D3 1 tab PO BID 10/27/18 10/27/18 [Calcium 600-Vit D3 200 Tablet] Diazepam [Valium] 5 mg PO Q12H PRN 10/27/18 10/27/18 Loperamide HCl [Loperamide] 2 mg PO BID PRN 10/27/18 10/27/18 Warfarin [Coumadin] 2 mg PO SUMOTUTHFR 10/27/18 10/27/18 Previous Rx's Medication Instructions Recorded LORazepam [Ativan] 0.5 mg PO BID 3 Days #6 tab 02/04/18 Allergies Allergy/AdvReac Type Severity Reaction Status Date / Time adhesive Allergy Rash/Hives Verified 10/27/18 21:23 carbamazepine [From Tegretol] Allergy Rash/Hives Verified 10/27/18 21:23 carisoprodol [From Soma] Allergy lowers b/p Verified 10/27/18 21:23 quickly & passes out doxycycline calcium Allergy Rash/Hives Verified 10/27/18 21:23 [From Vibramycin] doxycycline hyclate Allergy Rash/Hives,vomited Verified 10/27/18 21:23 [From Vibramycin] blood doxycycline monohydrate Allergy Rash/Hives,vomited Verified 10/27/18 21:23 [From Vibramycin] blood erythromycin base Allergy Rash/Hives,vomited Verified 10/27/18 21:23 [From E-Mycin] blood hydrocodone bitartrate Allergy abdominal Verified 10/27/18 21:23 [From Vicodin] pain, diarrhea NSAIDS (Non-Steroidal Allergy Swelling Verified 10/27/18 21:23 Anti-Inflamma piroxicam [From Feldene] Allergy Swelling Verified 10/27/18 21:23 ciprofloxacin [From Cipro] AdvReac Nausea & Verified 10/27/18 21:23 Vomiting corn [Daisy] AdvReac Diarrhea Verified 10/27/18 21:23 milk AdvReac Diarrhea Verified 10/27/18 21:23 wheat AdvReac Diarrhea Verified 10/27/18 21:23 Review of Systems ROS Statement: Those systems with pertinent positive or pertinent negative responses have been documented in the HPI. ROS Other: All systems not noted in ROS Statement are negative. Past Medical History Past Medical History: Eye Disorder, GERD/Reflux, Hypertension, Osteoarthritis (OA), Pulmonary Embolus (PE) Additional Past Medical History / Comment(s): DDD, gastroenteritis, h-pylori, gout, TMJ, bulging discs, left eye blind, macular degeneration BL eyes, multiple falls (not recent), transfers w/ walker to wheelchair, chronic UTI, osteoporosis, hypoglycemia. History of Any Multi-Drug Resistant Organisms: VRE Date of last positivie culture/infection: August 2013 MDRO Source:: Right knee Past Surgical History: Hysterectomy, Joint Replacement, Orthopedic Surgery, Tubal Ligation Additional Past Surgical History / Comment(s): Sternocleidomastoidectomy (right), right shoulder rotator cuff, rectocele/cystocele, right foot - Varma's neuroma/hammer toe, left outer forearm arthroscopy and shortening left ulna - plates and screws inserted, right wrist bundle of nerves , right knee arthroscopy/realignment of tendon/tibia/kneecap, 07-20-13 right knee replacement, 08-10-13 large hematoma removed, BL vitrectomies, BL cataract surgery, right right femur benign tumor removed, left foot bone spur. Past Anesthesia/Blood Transfusion Reactions: Postoperative Nausea & Vomiting (PONV) Additional Past Anesthesia/Blood Transfusion Reaction / Comment(s): no complications with prior blood transfusion Smoking Status: Never smoker - Past Family History Brother(s) Family Medical History: Cancer, Congestive Heart Failure (CHF) Additional Family Medical History / Comment(s): Heart problems, CABG, oral CA, p acemaker/defib. Father Family Medical History: Congestive Heart Failure (CHF), Hyperlipidemia, Hypertension, Myocardial Infarction (UT) Additional Family Medical History / Comment(s): at 97 years old. Mother Family Medical History: Congestive Heart Failure (CHF), CVA/TIA Additional Family Medical History / Comment(s): Pacemaker - January 16 at age 94 a few days after CVA. General Exam General appearance: alert, in no apparent distress Head exam: Present: atraumatic, normocephalic, normal inspection Eye exam: Present: normal appearance, PERRL, EOMI. Absent: scleral icterus, conjunctival injection, periorbital swelling ENT exam: Present: normal exam, mucous membranes moist Neck exam: Present: normal inspection. Absent: tenderness, meningismus, lymphadenopathy Respiratory exam: Present: normal lung sounds bilaterally. Absent: respiratory distress, wheezes, rales, rhonchi, stridor Cardiovascular Exam: Present: normal rhythm, tachycardia, normal heart sounds. Absent: systolic murmur, diastolic murmur, rubs, gallop, clicks GI/Abdominal exam: Present: soft, normal bowel sounds. Absent: distended, tenderness, guarding, rebound, rigid Extremities exam: Present: normal inspection, full ROM, normal capillary refill. Absent: tenderness, pedal edema, joint swelling, calf tenderness Back exam: Present: normal inspection Neurological exam: Present: alert, oriented X3, CN II-XII intact Psychiatric exam: Present: normal affect, normal mood Skin exam: Present: warm, dry, intact, normal color. Absent: rash Course Vital Signs 10/27/18 10/27/18 10/27/18 21:00 21:03 21:30 Temperature 103.2 F H Pulse Rate 112 H 98 Respiratory 18 Rate Blood Pressure 131/71 131/71 O2 Sat by Pulse 98 98 96 Oximetry 10/27/18 10/27/18 21:38 22:00 Temperature Pulse Rate 92 Respiratory 20 Rate Blood Pressure 128/82 O2 Sat by Pulse 97 Oximetry - Reevaluation(s) Reevaluation #1: 10/27/18 21:44 Medical records reviewed Reevaluation #2: 10/27/18 22:43 Feeling better with symptom control Medical Decision Making - Medical Decision Making 73 female the ER for evaluation of fever weakness not feeling well. UTI with fever, rule out bacteremia sepsis. Will be admitted for IV hydration fever control and antibiotics - Lab Data Result diagrams: 10/27/18 21:08 10/27/18 21:08 Lab Results 10/27/18 10/27/18 10/27/18 Range/Units 21:08 21:08 21:08 WBC 11.7 H (3.8-10.6) k/uL RBC 4.03 (3.80-5.40) m/uL Hgb 11.3 L (11.4-16.0) gm/dL Hct 35.9 (34.0-46.0) % MCV 89.1 (80.0-100.0) fL MCH 28.0 (25.0-35.0) pg MCHC 31.4 (31.0-37.0) g/dL RDW 15.9 H (11.5-15.5) % Plt Count 292 (150-450) k/uL Neutrophils % 84 % Lymphocytes % 9 % Monocytes % 4 % Eosinophils % 1 % Basophils % 0 % Neutrophils # 9.8 H (1.3-7.7) k/uL Lymphocytes # 1.1 (1.0-4.8) k/uL Monocytes # 0.5 (0-1.0) k/uL Eosinophils # 0.1 (0-0.7) k/uL Basophils # 0.0 (0-0.2) k/uL Sodium 134 L (137-145) mmol/L Potassium 4.4 (3.5-5.1) mmol/L Chloride 100 (98-107) mmol/L Carbon Dioxide 27 (22-30) mmol/L Anion Gap 7 mmol/L BUN 21 H (7-17) mg/dL Creatinine 0.94 (0.52-1.04) mg/dL Est GFR (CKD-EPI)AfAm 70 (>60 ml/min/1.73 sqM) Est GFR (CKD-EPI)NonAf 61 (>60 ml/min/1.73 sqM) Glucose 122 H (74-99) mg/dL Plasma Lactic Acid Ananth 1.7 (0.7-2.0) mmol/L Calcium 9.2 (8.4-10.2) mg/dL Phosphorus 2.6 (2.5-4.5) mg/dL Magnesium 1.7 (1.6-2.3) mg/dL Total Bilirubin 0.5 (0.2-1.3) mg/dL AST 27 (14-36) U/L ALT 14 (9-52) U/L Alkaline Phosphatase 133 H (38-126) U/L Total Protein 7.5 (6.3-8.2) g/dL Albumin 4.2 (3.5-5.0) g/dL Urine Color Urine Appearance (Clear) Urine pH (5.0-8.0) Ur Specific [place] (1.001-1.035) Urine Protein (Negative) Urine Glucose (UA) (Negative) Urine Ketones (Negative) Urine Blood (Negative) Urine Nitrite (Negative) Urine Bilirubin (Negative) Urine Urobilinogen (<2.0) mg/dL Ur Leukocyte Esterase (Negative) Urine RBC (0-5) /hpf Urine WBC (0-5) /hpf Ur Squamous Epith Cells (0-4) /hpf Urine Bacteria (None) /hpf Influenza Type A RNA (Not Detectd) Influenza Type B (PCR) (Not Detectd) 10/27/18 10/27/18 Range/Units 21:08 21:37 WBC (3.8-10.6) k/uL RBC (3.80-5.40) m/uL Hgb (11.4-16.0) gm/dL Hct (34.0-46.0) % MCV (80.0-100.0) fL MCH (25.0-35.0) pg MCHC (31.0-37.0) g/dL RDW (11.5-15.5) % Plt Count (150-450) k/uL Neutrophils % % Lymphocytes % % Monocytes % % Eosinophils % % Basophils % % Neutrophils # (1.3-7.7) k/uL Lymphocytes # (1.0-4.8) k/uL Monocytes # (0-1.0) k/uL Eosinophils # (0-0.7) k/uL Basophils # (0-0.2) k/uL Sodium (137-145) mmol/L Potassium (3.5-5.1) mmol/L Chloride (98-107) mmol/L Carbon Dioxide (22-30) mmol/L Anion Gap mmol/L BUN (7-17) mg/dL Creatinine (0.52-1.04) mg/dL Est GFR (CKD-EPI)AfAm (>60 ml/min/1.73 sqM) Est GFR (CKD-EPI)NonAf (>60 ml/min/1.73 sqM) Glucose (74-99) mg/dL Plasma Lactic Acid Ananth (0.7-2.0) mmol/L Calcium (8.4-10.2) mg/dL Phosphorus (2.5-4.5) mg/dL Magnesium (1.6-2.3) mg/dL Total Bilirubin (0.2-1.3) mg/dL AST (14-36) U/L ALT (9-52) U/L Alkaline Phosphatase (38-126) U/L Total Protein (6.3-8.2) g/dL Albumin (3.5-5.0) g/dL Urine Color Yellow Urine Appearance Cloudy H (Clear) Urine pH 5.5 (5.0-8.0) Ur Specific [place] 1.019 (1.001-1.035) Urine Protein Negative (Negative) Urine Glucose (UA) Negative (Negative) Urine Ketones Negative (Negative) Urine Blood Trace H (Negative) Urine Nitrite Positive H (Negative) Urine Bilirubin Negative (Negative) Urine Urobilinogen <2.0 (<2.0) mg/dL Ur Leukocyte Esterase Large H (Negative) Urine RBC 2 (0-5) /hpf Urine WBC 40 H (0-5) /hpf Ur Squamous Epith Cells 2 (0-4) /hpf Urine Bacteria Few H (None) /hpf Influenza Type A RNA Not Detected (Not Detectd) Influenza Type B (PCR) Not Detected (Not Detectd) Disposition Clinical Impression: Fever, UTI (urinary tract infection) Disposition: ADMITTED IP TO THIS [facility] Condition: Fair Is patient prescribed a controlled substance at d/c from ED?: No Referrals: None,Stated [REFERRING] - 1-2 days
[2018-10-27 21:54] LABS: Appearance,Urine Cloudy (Clear); Bacteria,Urine Few /hpf; Bilirubin,Urine Negative (Negative); Blood,Urine Trace (Negative); Color,Urine Yellow; Glucose,Urine (UA) Negative (Negative); Ketones,Urine Negative (Negative); Leukocyte Esterase,Urine Large (Negative); Nitrite,Urine Positive (Negative); PH, Urine 5.5 (5.0-8.0); Protein,Urine Negative (Negative); RBC,Urine 2 /hpf (0-5); Specific Gravity,Urine 1.019 (1.001-1.035); Squamous Epithelial Cell,Urine 2 /hpf (0-4); Urobilinogen,Urine <2.0 mg/dL (<2.0); WBC,Urine 40 /hpf (0-5)
[2018-10-27 22:15] LABS: Basophils % (A) 0 %; Eosinophils # (A) 0.1 k/uL (0-0.7); Eosinophils % (A) 1 %; HCT 35.9 % (34.0-46.0); HGB 11.3 gm/dL (11.4-16.0); Lymphocytes # (A) 1.1 k/uL (1.0-4.8); Lymphocytes % (A) 9 %; MCHC 31.4 g/dL (31.0-37.0); MCV 89.1 fL (80.0-100.0); Mean Platelet Volume 7.3; Monocytes # (A) 0.5 k/uL (0-1.0); Monocytes % (A) 4 %; Neutrophils # (A) 9.8 k/uL (1.3-7.7); Neutrophils % (A) 84 %; Platelet Count 292 k/uL (150-450); RBC 4.03 m/uL (3.80-5.40); RDW 15.9 % (11.5-15.5); WBC 11.7 k/uL (3.8-10.6)
--- NOTE | 2018-10-27 22:16 | XR ---
EXAM: XR Chest, 2 Views CLINICAL HISTORY: Shortness of breath TECHNIQUE: Frontal and lateral views of the chest. COMPARISON: Chest x-ray dated 03/31/2018 FINDINGS: Lungs: Diffuse airspace opacities. No focal consolidation. Pleural space: Unremarkable. No pneumothorax. Heart: Heart is enlarged. Mediastinum: Unremarkable. Bones/joints: Unremarkable. IMPRESSION: Diffuse airspace opacities which may be technical. Early pulmonary vascular congestion or an infectious process are not excluded.
[2018-10-27 22:26] LABS: Albumin 4.2 g/dL (3.5-5.0); Calcium 9.2 mg/dL (8.4-10.2); Magnesium 1.7 mg/dL (1.6-2.3); Phosphorus 2.6 mg/dL (2.5-4.5); Potassium 4.4 mmol/L (3.5-5.1); Total Bilirubin 0.5 mg/dL (0.2-1.3); Total Protein 7.5 g/dL (6.3-8.2)
[2018-10-27] MEDS ORDERED: SODIUM CHLORIDE 0.9% 1,000 ML IV ONE (22:42)
[2018-10-27] MEDS ORDERED: NALOXONE 0.4 MG/ML 1 ML VIAL IV PRN (23:15)
[2018-10-27] MEDS ORDERED: LOPERAMIDE 2 MG CAP PO PRN (23:17)
[2018-10-27] MEDS ORDERED: DIAZEPAM 5 MG TAB PO PRN (23:17)
--- NOTE | 2018-10-27 23:23 | P.HPIM ---
History of Present Illness H&P Date: 10/27/18 Chief Complaint: Fatigue weakness and fevers The patient is a morbidly obese 73-year-old female with a past medical history of hypertension, chronic diastolic CHF, hyperlipidemia, gout, history of pulmonary embolism currently on anticoagulation with Coumadin who presents to the ER via private vehicle with chief complaint of generalized fatigue and weakness. Apparently the patient has been feeling increasingly weak and fatigued over the last 2 days, with a decrease in her appetite the patient is also had subjective fevers chills and night sweats. She reports dysuria for the last 5 days, but denies any frequency or urgency she also denies any nausea vomiting or flank pain. The patient denies any chest pain shortness of breath or cough. Otherwise only complaints that she has his chronic lower extremity pain, she reports a history of a failed right knee prosthesis for which she sees an orthopedic surgeon at [facility] Dr. Asencio In the ER the patient had a comprehensive workup showed white count of 11.7 hemoglobin of 11.3, Serum sodium 134, BUN 21 Creatinine 0.94. Urinalysis was nitrite positive for trace blood, large leukocyte esterase, and 40 urine WBCs. Influenza A and B were negative. Chest x-ray was consistent with diffuse airspace opacities which may be technical, with early pulmonary vascular congestion or infection not excluded Past Medical History Past Medical History: Eye Disorder, GERD/Reflux, Hypertension, Osteoarthritis (OA), Pulmonary Embolus (PE) Additional Past Medical History / Comment(s): DDD, gastroenteritis, h-pylori, gout, TMJ, bulging discs, left eye blind, macular degeneration BL eyes, multiple falls (not recent), transfers w/ walker to wheelchair, chronic UTI, osteoporosis, hypoglycemia. History of Any Multi-Drug Resistant Organisms: VRE Date of last positivie culture/infection: August 2013 MDRO Source:: Right knee Past Surgical History: Hysterectomy, Joint Replacement, Orthopedic Surgery, Tubal Ligation Additional Past Surgical History / Comment(s): Sternocleidomastoidectomy (right), right shoulder rotator cuff, rectocele/cystocele, right foot - Varma's neuroma/hammer toe, left outer forearm arthroscopy and shortening left ulna - plates and screws inserted, right wrist bundle of nerves , right knee arthroscopy/realignment of tendon/tibia/kneecap, 07-20-13 right knee replacement, 08-10-13 large hematoma removed, BL vitrectomies, BL cataract surgery, right right femur benign tumor removed, left foot bone spur. Past Anesthesia/Blood Transfusion Reactions: Postoperative Nausea & Vomiting (PONV) Additional Past Anesthesia/Blood Transfusion Reaction / Comment(s): no complications with prior blood transfusion Smoking Status: Never smoker - Past Family History Brother(s) Family Medical History: Cancer, Congestive Heart Failure (CHF) Additional Family Medical History / Comment(s): Heart problems, CABG, oral CA, pacemaker/defib. Father Family Medical History: Congestive Heart Failure (CHF), Hyperlipidemia, Hypert ension, Myocardial Infarction ([place]) Additional Family Medical History / Comment(s): at 97 years old. Mother Family Medical History: Congestive Heart Failure (CHF), CVA/TIA Additional Family Medical History / Comment(s): Pacemaker - January 16 at age 94 a few days after CVA. Medications and Allergies Home Medications Medication Instructions Recorded Confirmed Type Allopurinol [Zyloprim] 300 mg PO DAILY 08/21/14 10/27/18 History Furosemide [Lasix] 40 mg PO DAILY 08/21/14 10/27/18 History Potassium Chloride [Klor-Con 20] 20 meq PO DAILY 08/21/14 10/27/18 History diphenhydrAMINE HCL [Benadryl] 25 mg PO HS 08/21/14 10/27/18 History Lisinopril [Zestril] 20 mg PO BID@0800,1600 11/17/15 10/27/18 History Metoprolol Tartrate [Lopressor] 25 mg PO BID 11/17/15 10/27/18 History Multivitamins, Thera [Multivitamin 1 tab PO DAILY 11/17/15 10/27/18 History (formulary)] Vit A/Vit C/Vit E/Zinc/Copper 1 cap PO DAILY 11/17/15 10/27/18 History [ICAPS SOFTGEL] amLODIPine [Norvasc] 5 mg PO QAM 07/03/16 10/27/18 History Acetaminophen Tab [Tylenol] 650 mg PO Q6H PRN 02/02/18 10/27/18 History Cyclobenzaprine [Flexeril] 10 mg PO BID PRN 02/02/18 10/27/18 History Isosorbide Mononitrate ER [Imdur] 30 mg PO DAILY 02/02/18 10/27/18 History Omeprazole 20 mg PO DAILY 02/02/18 10/27/18 History Pravastatin Sodium [Pravachol] 20 mg PO DAILY 02/02/18 10/27/18 History LORazepam [Ativan] 0.5 mg PO BID 3 Days #6 tab 02/04/18 10/27/18 Rx PARoxetine HCL [Paxil] 30 mg PO BID 03/27/18 10/27/18 History Ascorbic Acid [Vitamin C] 500 mg PO DAILY 10/27/18 10/27/18 History Aspirin EC [Ecotrin] 325 mg PO DAILY 10/27/18 10/27/18 History Calcium Carbonate/Vitamin D3 1 tab PO BID 10/27/18 10/27/18 History [Calcium 600-Vit D3 200 Tablet] Diazepam [Valium] 5 mg PO Q12H PRN 10/27/18 10/27/18 History Loperamide HCl [Loperamide] 2 mg PO BID PRN 10/27/18 10/27/18 History Warfarin [Coumadin] 2 mg PO SUMOTUTHFR 10/27/18 10/27/18 History Allergies Allergy/AdvReac Type Severity Reaction Status Date / Time adhesive Allergy Rash/Hives Verified 10/27/18 21:23 carbamazepine [From Tegretol] Allergy Rash/Hives Verified 10/27/18 21:23 carisoprodol [From Soma] Allergy lowers b/p Verified 10/27/18 21:23 quickly & passes out doxycycline calcium Allergy Rash/Hives Verified 10/27/18 21:23 [From Vibramycin] doxycycline hyclate Allergy Rash/Hives,vomited Verified 10/27/18 21:23 [From Vibramycin] blood doxycycline monohydrate Allergy Rash/Hives,vomited Verified 10/27/18 21:23 [From Vibramycin] blood erythromycin base Allergy Rash/Hives,vomited Verified 10/27/18 21:23 [From E-Mycin] blood hydrocodone bitartrate Allergy abdominal Verified 10/27/18 21:23 [From Vicodin] pain, diarrhea NSAIDS (Non-Steroidal Allergy Swelling Verified 10/27/18 21:23 Anti-Inflamma piroxicam [From Feldene] Allergy Swelling Verified 10/27/18 21:23 ciprofloxacin [From Cipro] AdvReac Nausea & Verified 10/27/18 21:23 Vomiting corn [[place]] AdvReac Diarrhea Verified 10/27/18 21:23 milk AdvReac Diarrhea Verified 10/27/18 21:23 wheat AdvReac Diarrhea Verified 10/27/18 21:23 Physical Exam Vitals: Vital Signs Temp Pulse Resp BP Pulse Ox 10/27/18 22:44 102.0 F H 107 H 18 143/85 98 10/27/18 22:00 92 128/82 97 10/27/18 21:38 20 10/27/18 21:30 98 131/71 96 10/27/18 21:03 98 10/27/18 21:00 103.2 F H 112 H 18 131/71 98 Intake and Output 10/27/18 10/27/18 10/28/18 14:59 22:59 06:59 Other: Weight 117.934 kg Constitutional: No acute distress, conversant, pleasant Eyes: Anicteric sclerae, moist conjunctiva, no lid-lag, PERRLA ENMT: NC/AT,Oropharynx clear, no erythema, exudates Neck:Supple, FROM, no masses, or JVD, No carotid bruits; No thyromegaly Lungs: Clear to auscultation, Clear to percussion, Normal respiratory effort, no accessory muscle use Cardiovascular: Heart regular in rate and rhythm, No murmurs, gallops, or rubs no peripheral edema Abdominal: Soft Nontender, nom distended, no guarding, no rebound or rigidity, Normoactive bowel sounds No hepatomegaly, No splenomegaly, No palpable mass No abdominal wall hernia noted Skin: Normal temperature, tone, texture, turgor, No induration No subcutaneous nodules, No rash, lesions, No ulcers Extremities:No digital cyanosis No clubbing, Pedal pulses intact and symmetrical Radial pulses intact and symmetrical Normal gait and station, No calf tenderness Psychiatric: Alert and oriented to person, place and time, Appropriate affect Intact judgement Neuro: Muscles Strength 5/5 in all 4 extremities, Sensation to light touch grossly present throughout, Cranial nerves II-XII grossly intact. No focal sensory deficits Results CBC & Chem 7: 10/27/18 21:08 10/27/18 21:08 Labs: Abnormal Lab Results - Last 24 Hours (Table) 10/27/18 10/27/18 10/27/18 Range/Units 21:08 21:08 21:37 WBC 11.7 H (3.8-10.6) k/uL Hgb 11.3 L (11.4-16.0) gm/dL RDW 15.9 H (11.5-15.5) % Neutrophils # 9.8 H (1.3-7.7) k/uL Sodium 134 L (137-145) mmol/L BUN 21 H (7-17) mg/dL Glucose 122 H (74-99) mg/dL Alkaline Phosphatase 133 H (38-126) U/L Urine Appearance Cloudy H (Clear) Urine Blood Trace H (Negative) Urine Nitrite Positive H (Negative) Ur Leukocyte Esterase Large H (Negative) Urine WBC 40 H (0-5) /hpf Urine Bacteria Few H (None) /hpf Assessment and Plan Assessment: Chronic conditions History of PE on anticoagulation with warfarin Gout Acid reflux Hyperlipidemia Generalized anxiety disorder Osteoarthritis Osteoporosis (1) Sepsis Current Visit: Yes Status: Acute Code(s): A41.9 - SEPSIS, UNSPECIFIED ORGANISM SNOMED Code(s): 25550449 (2) UTI (urinary tract infection) Current Visit: Yes Status: Acute Code(s): N39.0 - URINARY TRACT INFECTION, SITE NOT SPECIFIED SNOMED Code(s): 90873279 (3) Hyponatremia Current Visit: Yes Status: Acute Code(s): E87.1 - HYPO-OSMOLALITY AND HYPONATREMIA SNOMED Code(s): 36919608 (4) Essential hypertension Current Visit: Yes Status: Acute Code(s): I10 - ESSENTIAL (PRIMARY) HYPERTENSION SNOMED Code(s): 12163155 (5) Chronic diastolic CHF (congestive heart failure) Current Visit: Yes Status: Acute Code(s): I50.32 - CHRONIC DIASTOLIC (CONGESTIVE) HEART FAILURE SNOMED Code(s): 449994794 (6) Hyperlipidemia Current Visit: Yes Status: Acute Code(s): E78.5 - HYPERLIPIDEMIA, UNSPECIFIED SNOMED Code(s): 23955962 Plan: The patient is admitted anticipated greater than 2 midnight stay with sepsis due to UTI after presenting with generalized weakness and fatigue with urinalysis suggestive of a urinary tract infection and febrile in the ER with a mild leukocytosis. She started on empiric IV antibiotics with IV Rocephin along with IV fluids to correct her mild hyponatremia. Patient is hemodynamically stable with no signs of septic shock at this time, blood cultures have been ordered we'll order urine culture, chest x-ray with opacities however the patient is not symptomatic. We'll resume all the patient's home medications and continue to follow her clinical course. CODE STATUS: Full code Discussed plan of care with: Patient and her Cain Anticipated discharge : 1-[address]: Home Prophylaxis: On Coumadin and PPI therapy Time with Patient: Greater than 30
[2018-10-28 00:50] LABS: INR 1.8 (<1.2)
[2018-10-28] MEDS: ACETAMINOPHEN TAB 325 MG TAB PO PRN ×3 (06:10→21:57)
[2018-10-28] MEDS: CYCLOBENZAPRINE 10 MG TAB PO PRN (06:20)
[2018-10-28 08:10] LABS: Basophils % (A) 0 %; Eosinophils # (A) 0.1 k/uL (0-0.7); Eosinophils % (A) 1 %; HCT 32.5 % (34.0-46.0); HGB 10.5 gm/dL (11.4-16.0); Lymphocytes % (A) 13 %; MCH 29.4 pg (25.0-35.0); MCHC 32.4 g/dL (31.0-37.0); MCV 90.6 fL (80.0-100.0); Monocytes # (A) 0.5 k/uL (0-1.0); Monocytes % (A) 6 %; Neutrophils # (A) 6.1 k/uL (1.3-7.7); Neutrophils % (A) 77 %; Platelet Count 248 k/uL (150-450); RBC 3.59 m/uL (3.80-5.40); RDW 15.9 % (11.5-15.5); WBC 7.8 k/uL (3.8-10.6)
[2018-10-28] MEDS: ASPIRIN 325 MG TAB PO SCH (08:16)
[2018-10-28] MEDS: ISOSORBIDE MONONITRATE ER 30 MG TAB.ER.24H PO SCH (08:17)
[2018-10-28] MEDS: POTASSIUM CHLORIDE ER 20 MEQ TAB.ER PO SCH (08:17)
[2018-10-28] MEDS: PARoxetine 10 MG TAB PO SCH ×2 (08:17→20:12)
[2018-10-28] MEDS: LISINOPRIL 20 MG TAB PO SCH ×2 (08:17→16:54)
[2018-10-28] MEDS: CALCIUM CARB-VIT D 500MG-200UN 1 EACH TAB PO SCH ×2 (08:17→20:11)
[2018-10-28] MEDS: LORazepam 0.5 MG TAB PO SCH ×2 (08:17→20:11)
[2018-10-28] MEDS: ALLOPURINOL 300 MG TAB PO SCH (08:17)
[2018-10-28] MEDS: amLODIPine 5 MG TAB PO SCH (08:17)
[2018-10-28] MEDS: PRAVASTATIN SODIUM 20 MG TAB PO SCH (08:17)
[2018-10-28] MEDS: PANTOPRAZOLE 40 MG TABLET PO SCH (08:17)
[2018-10-28] MEDS: FUROSEMIDE 40 MG TAB PO SCH (08:17)
[2018-10-28] MEDS: METOPROLOL TARTRATE 25 MG TAB PO SCH ×2 (08:17→20:12)
[2018-10-28] MEDS: ASCORBIC ACID 500 MG TAB PO SCH (08:18)
[2018-10-28] MEDS: MULTIVITAMINS, THERA 1 EACH TAB PO SCH (08:18)
[2018-10-28 08:20] LABS: Calcium 8.8 mg/dL (8.4-10.2); Potassium 3.6 mmol/L (3.5-5.1)
[2018-10-28 08:24] LABS: INR 1.6 (<1.2); Prothrombin Time 15.5 sec (9.0-12.0)
[2018-10-28] MEDS ORDERED: WARFARIN 2 MG TAB PO SCH (18:00)
[2018-10-28] MEDS ORDERED: WARFARIN 3 MG TAB PO ONE (18:00)
--- NOTE | 2018-10-28 18:39 | P.PN ---
Subjective Progress Note Date: 10/28/18 Patient was seen and examined at the bedside. She reported improvement in her symptoms and no further episodes of fever. She reported that her urinary symptoms also resolved. Objective - Vital Signs Vital signs: Vital Signs Temp 97.9 F 10/28/18 11:19 Pulse 80 10/28/18 14:55 Resp 16 10/28/18 14:55 BP 102/65 10/28/18 11:19 Pulse Ox 96 10/28/18 11:19 Intake & Output 10/27/18 10/28/18 10/28/18 18:59 06:59 18:59 Intake Total 590 1200 Balance 590 1200 Weight 117.934 kg Intake: Intake, IV Titration 50 Amount cefTRIAXone 1 gm In 50 Sodium Chloride 0.9% 50 ml @ 100 mls/hr IVPB Q12HR [facility] Rx#:[id number] Oral 590 1150 Other: Voiding Method Bedside Commode Bedside Commode Bedpan Diaper # Voids 2 1 # Bowel Movements 3 - Exam General: Non-toxic, in no acute distress, appears stated age, normal weight HEENT: NC/AT, anicteric sclerae, moist conjunctiva, no lid-lag, PERRLA Cardiovascular: S1/S2 wnl, no murmurs, rubs, or gallops Lungs: Clear to auscultation, normal respiratory effort, no accessory muscle use Abdominal: Soft, non-tender, non-distended, no guarding, rebound, or rigidity Skin: Warm, dry Extremities: No edema or contractures Psychiatric: Alert and oriented to person, place and time, appropriate affect Neuro: CN II-XII grossly intact, no focal deficits - Labs CBC & Chem 7: 10/28/18 07:37 10/28/18 07:37 Labs: Abnormal Lab Results - Last 24 Hours (Table) 10/27/18 10/27/18 10/27/18 Range/Units 21:08 21:08 21:37 WBC 11.7 H (3.8-10.6) k/uL RBC (3.80-5.40) m/uL Hgb 11.3 L (11.4-16.0) gm/dL Hct (34.0-46.0) % RDW 15.9 H (11.5-15.5) % Neutrophils # 9.8 H (1.3-7.7) k/uL PT (9.0-12.0) sec INR (<1.2) Sodium 134 L (137-145) mmol/L BUN 21 H (7-17) mg/dL Glucose 122 H (74-99) mg/dL Alkaline Phosphatase 133 H (38-126) U/L Urine Appearance Cloudy H (Clear) Urine Blood Trace H (Negative) Urine Nitrite Positive H (Negative) Ur Leukocyte Esterase Large H (Negative) Urine WBC 40 H (0-5) /hpf Urine Bacteria Few H (None) /hpf 10/28/18 10/28/18 10/28/18 Range/Units 00:26 07:37 07:37 WBC (3.8-10.6) k/uL RBC 3.59 L (3.80-5.40) m/uL Hgb 10.5 L (11.4-16.0) gm/dL Hct 32.5 L (34.0-46.0) % RDW 15.9 H (11.5-15.5) % Neutrophils # (1.3-7.7) k/uL PT 18.0 H 15.5 H (9.0-12.0) sec INR 1.8 H 1.6 H (<1.2) Sodium (137-145) mmol/L BUN (7-17) mg/dL Glucose (74-99) mg/dL Alkaline Phosphatase (38-126) U/L Urine Appearance (Clear) Urine Blood (Negative) Urine Nitrite (Negative) Ur Leukocyte Esterase (Negative) Urine WBC (0-5) /hpf Urine Bacteria (None) /hpf 10/28/18 Range/Units 07:37 WBC (3.8-10.6) k/uL RBC (3.80-5.40) m/uL Hgb (11.4-16.0) gm/dL Hct (34.0-46.0) % RDW (11.5-15.5) % Neutrophils # (1.3-7.7) k/uL PT (9.0-12.0) sec INR (<1.2) Sodium (137-145) mmol/L BUN (7-17) mg/dL Glucose 114 H (74-99) mg/dL Alkaline Phosphatase (38-126) U/L Urine Appearance (Clear) Urine Blood (Negative) Urine Nitrite (Negative) Ur Leukocyte Esterase (Negative) Urine WBC (0-5) /hpf Urine Bacteria (None) /hpf Microbiology - Last 24 Hours (Table) 10/27/18 21:37 Urine Culture - Preliminary Urine,Voided Assessment and Plan Plan: UTI, sepsis resolved -C/w Ceftriaxone -Continue IV fluids -Await culture and sensitivities Hyponatremia -Resolved Hx of PE, subtherapeutic on Coumadin -Will bridge with Heparin -C/w Coumadin per pharmacy dosing -Monitor INR Chronic conditions: chronic diastolic CHF not in acute exacerbation, hype rlipidemia, hypertension -Resume home medications
[2018-10-28] MEDS ORDERED: HEPARIN SODIUM,PORCINE 5,000 UNIT/ML 1 ML VIAL IV ONE (18:40)
[2018-10-28] MEDS ORDERED: HEPARIN SODIUM,PORCINE 5,000 UNIT/ML 1 ML VIAL IV PRN (18:40)
[2018-10-28] MEDS: diphenhydrAMINE 25 MG CAP PO SCH (20:11)
[2018-10-28] MEDS: HEPARIN SOD,PORK IN 0.45% NACL 25,000 UNIT in 0.45% NACL 1 250ML.BAG IV SCH (22:37)
[2018-10-29 07:26] LABS: Basophils % (A) 0 %; Eosinophils # (A) 0.2 k/uL (0-0.7); Eosinophils % (A) 2 %; HCT 32.7 % (34.0-46.0); HGB 10.5 gm/dL (11.4-16.0); Lymphocytes # (A) 1.5 k/uL (1.0-4.8); Lymphocytes % (A) 22 %; MCH 28.8 pg (25.0-35.0); MCHC 32.1 g/dL (31.0-37.0); MCV 89.7 fL (80.0-100.0); Mean Platelet Volume 6.8; Monocytes # (A) 0.5 k/uL (0-1.0); Monocytes % (A) 8 %; Neutrophils # (A) 4.4 k/uL (1.3-7.7); Neutrophils % (A) 64 %; Platelet Count 266 k/uL (150-450); RBC 3.64 m/uL (3.80-5.40); RDW 15.8 % (11.5-15.5); WBC 6.8 k/uL (3.8-10.6)
[2018-10-29 07:47] LABS: INR 1.4 (<1.2); Prothrombin Time 14.1 sec (9.0-12.0)
[2018-10-29 07:50] LABS: Partial Thromboplastin Time 144.7 sec (22.0-30.0)
[2018-10-29 08:19] LABS: Potassium 4.2 mmol/L (3.5-5.1)
[2018-10-29] MEDS: PANTOPRAZOLE 40 MG TABLET PO SCH (09:18)
[2018-10-29] MEDS: ALLOPURINOL 300 MG TAB PO SCH (09:18)
[2018-10-29] MEDS: LISINOPRIL 20 MG TAB PO SCH ×2 (09:18→15:53)
[2018-10-29] MEDS: amLODIPine 5 MG TAB PO SCH (09:18)
[2018-10-29] MEDS: CALCIUM CARB-VIT D 500MG-200UN 1 EACH TAB PO SCH ×2 (09:19→20:20)
[2018-10-29] MEDS: ASPIRIN 325 MG TAB PO SCH (09:19)
[2018-10-29] MEDS: ASCORBIC ACID 500 MG TAB PO SCH (09:19)
[2018-10-29] MEDS: LORazepam 0.5 MG TAB PO SCH ×2 (09:20→20:20)
[2018-10-29] MEDS: ISOSORBIDE MONONITRATE ER 30 MG TAB.ER.24H PO SCH (09:20)
[2018-10-29] MEDS: MULTIVITAMINS, THERA 1 EACH TAB PO SCH (09:20)
[2018-10-29] MEDS: FUROSEMIDE 40 MG TAB PO SCH (09:20)
[2018-10-29] MEDS: PRAVASTATIN SODIUM 20 MG TAB PO SCH (09:20)
[2018-10-29] MEDS: POTASSIUM CHLORIDE ER 20 MEQ TAB.ER PO SCH (09:20)
[2018-10-29] MEDS: METOPROLOL TARTRATE 25 MG TAB PO SCH ×2 (09:20→20:20)
[2018-10-29] MEDS: PARoxetine 10 MG TAB PO SCH ×2 (09:21→20:20)
[2018-10-29] MEDS: ACETAMINOPHEN TAB 325 MG TAB PO PRN ×2 (09:31→15:54)
--- NOTE | 2018-10-29 11:25 | P.PN ---
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 The patient at stated that for the past 5 days prior to presentation, her symptoms gradually worsened. In the emergency room, she underwent an extensive evaluation with a urinalysis that was consistent with a UTI. She was started on IV Rocephin and was admitted for further management. The patient's INR was also subtherapeutic at 1.6 and she was continued with her home dose of Coumadin and was initiated on IV heparin for bridging. The patient was seen and examined at the bedside on 10/29/2018. She reported no additional episodes of fever, chills, or dysuria. She further denied chest pain, shortness breath, nausea, vomiting, or diarrhea. Objective - Vital Signs Vital signs: Vital Signs Temp 98.3 F 10/29/18 04:48 Pulse 86 10/29/18 08:35 Resp 16 10/29/18 08:35 BP 105/69 10/29/18 04:48 Pulse Ox 95 10/29/18 04:48 Intake & Output 10/28/18 10/29/18 10/29/18 18:59 06:59 18:59 Intake Total 1200 669.251 70.17 Balance 1200 669.251 70.17 Intake: Intake, IV Titration 50 79.251 70.17 Amount Heparin Sod,Pork in 0.45% 79.251 70.17 NaCl 25,000 unit In 0.45 % NaCl 1 250ml.bag @ 18 UNITS/KG/HR 21.228 mls/hr IV .[id number] [facility] Rx#: [id number] cefTRIAXone 1 gm In 50 Sodium Chloride 0.9% 50 ml @ 100 mls/hr IVPB Q12HR [facility] Rx#:[id number] Oral 1150 590 Other: Voiding Method Bedside Commode Bedside Commode Bedside Commode Bedpan Bedpan Bedpan Diaper Diaper Diaper # Voids 1 3 # Bowel Movements 3 - Exam General: Non-toxic, in no acute distress, appears stated age HEENT: NC/AT, anicteric sclerae, moist conjunctiva, no lid-lag, PERRLA Cardiovascular: S1/S2 wnl, no murmurs, rubs, or gallops Lungs: Clear to auscultation, normal respiratory effort, no accessory muscle use Abdominal: Soft, non-tender, non-distended, no guarding, rebound, or rigidity Skin: Warm, dry Extremities: No edema or contractures Psychiatric: Alert and oriented to person, place and time, appropriate affect Neuro: CN II-XII grossly intact, no focal deficits - Labs CBC & Chem 7: 10/29/18 07:08 10/29/18 07:08 Labs: Abnormal Lab Results - Last 24 Hours (Table) 10/28/18 10/29/18 10/29/18 Range/Units 20:40 01:20 07:08 RBC 3.64 L (3.80-5.40) m/uL Hgb 10.5 L (11.4-16.0) gm/dL Hct 32.7 L (34.0-46.0) % RDW 15.8 H (11.5-15.5) % PT (9.0-12.0) sec INR (<1.2) APTT 30.5 H >200.0 H* (22.0-30.0) sec Glucose (74-99) mg/dL 10/29/18 10/29/18 Range/Units 07:08 07:08 RBC (3.80-5.40) m/uL Hgb (11.4-16.0) gm/dL Hct (34.0-46.0) % RDW (11.5-15.5) % PT 14.1 H (9.0-12.0) sec INR 1.4 H (<1.2) APTT 144.7 H* (22.0-30.0) sec Glucose 109 H (74-99) mg/dL Microbiology - Last 24 Hours (Table) 10/27/18 21:08 Blood Culture - Preliminary Blood No Growth after 24 hours 10/27/18 21:37 Urine Culture - Preliminary Urine,Voided Gram Neg Bacilli Assessment and Plan Plan: UTI, sepsis resolved -C/w Ceftriaxone -Continue IV fluids -Urine cultures growing gram-negative bacilli, await sensitivities Hyponatremia -Resolved Hx of PE, subtherapeutic on Coumadin -Will bridge with Heparin -C/w Coumadin per pharmacy dosing -Monitor INR Chronic conditions: chronic diastolic CHF not in acute exacerbation, hyperlipidemia, hypertension -Resume home medications DVT prophylaxis -IV heparin Discussed with: Patient Anticipated discharge date: 10/30/[address]: Home A total of 30 minutes was spent on the care of this complex patient more than 50% of the time was spent in counseling and care coordination.
[2018-10-29] MEDS: HEPARIN SOD,PORK IN 0.45% NACL 25,000 UNIT in 0.45% NACL 1 250ML.BAG IV SCH ×2 (15:57→19:24)
[2018-10-29] MEDS ORDERED: WARFARIN 3 MG TAB PO ONE (18:00)
[2018-10-29] MEDS: diphenhydrAMINE 25 MG CAP PO SCH (20:20)
[2018-10-29] MEDS: CYCLOBENZAPRINE 10 MG TAB PO PRN (21:26)
[2018-10-30] MEDS: ACETAMINOPHEN TAB 325 MG TAB PO PRN ×3 (00:13→21:19)
[2018-10-30 07:19] LABS: INR 1.7 (<1.2); Prothrombin Time 16.6 sec (9.0-12.0)
[2018-10-30 07:26] LABS: Anisocytosis Slight; Basophils % (A) 1 %; Eosinophils # (A) 0.2 k/uL (0-0.7); Eosinophils % (A) 3 %; HCT 33.3 % (34.0-46.0); HGB 10.7 gm/dL (11.4-16.0); Lymphocytes # (A) 1.8 k/uL (1.0-4.8); Lymphocytes % (A) 28 %; MCV 93.6 fL (80.0-100.0); Mean Platelet Volume 7.5; Monocytes # (A) 0.4 k/uL (0-1.0); Monocytes % (A) 6 %; Neutrophils # (A) 3.7 k/uL (1.3-7.7); Neutrophils % (A) 58 %; Platelet Count 278 k/uL (150-450); RBC 3.55 m/uL (3.80-5.40); RDW 16.6 % (11.5-15.5); WBC 6.4 k/uL (3.8-10.6)
[2018-10-30] MEDS: amLODIPine 5 MG TAB PO SCH (08:49)
[2018-10-30] MEDS: METOPROLOL TARTRATE 25 MG TAB PO SCH ×2 (08:50→20:46)
[2018-10-30] MEDS: CALCIUM CARB-VIT D 500MG-200UN 1 EACH TAB PO SCH ×2 (08:50→20:46)
[2018-10-30] MEDS: LISINOPRIL 20 MG TAB PO SCH ×2 (08:50→17:20)
[2018-10-30] MEDS: PRAVASTATIN SODIUM 20 MG TAB PO SCH (08:50)
[2018-10-30] MEDS: LORazepam 0.5 MG TAB PO SCH ×2 (08:50→20:46)
[2018-10-30] MEDS: ISOSORBIDE MONONITRATE ER 30 MG TAB.ER.24H PO SCH (08:50)
[2018-10-30] MEDS: POTASSIUM CHLORIDE ER 20 MEQ TAB.ER PO SCH (08:50)
[2018-10-30] MEDS: PANTOPRAZOLE 40 MG TABLET PO SCH (08:50)
[2018-10-30] MEDS: ASPIRIN 325 MG TAB PO SCH (08:50)
[2018-10-30] MEDS: ALLOPURINOL 300 MG TAB PO SCH (08:50)
[2018-10-30] MEDS: ASCORBIC ACID 500 MG TAB PO SCH (08:50)
[2018-10-30] MEDS: PARoxetine 10 MG TAB PO SCH ×2 (08:50→20:46)
[2018-10-30] MEDS: FUROSEMIDE 40 MG TAB PO SCH (08:50)
[2018-10-30] MEDS: HEPARIN SOD,PORK IN 0.45% NACL 25,000 UNIT in 0.45% NACL 1 250ML.BAG IV SCH ×2 (08:51→17:19)
[2018-10-30] MEDS ORDERED: ALBUTEROL NEBULIZED 2.5 MG/3 ML INHALATION STA (11:35)
--- NOTE | 2018-10-30 14:54 | P.PN ---
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 The patient at stated that for the past 5 days prior to presentation, her symptoms gradually worsened. In the emergency room, she underwent an extensive evaluation with a urinalysis that was consistent with a UTI. She was started on IV Rocephin and was admitted for further management. The patient's INR was also subtherapeutic at 1.6 and she was continued on Coumadin and was in itiated on IV heparin for bridging. The patient was seen and examined at the bedside. She was in good spirits and denied any active complaints. She reported no additional episodes of fever, chills, or dysuria. She notes that she does not have any urinary complaint at this time. She also denied chest pain, shortness with no nausea, vomiting. Objective - Vital Signs Vital signs: Vital Signs Temp 98 F 10/30/18 11:36 Pulse 69 10/30/18 11:36 Resp 15 10/30/18 11:36 BP 118/73 10/30/18 11:36 Pulse Ox 96 10/30/18 11:36 Intake & Output 10/29/18 10/30/18 10/30/18 18:59 06:59 18:59 Intake Total 405.696 638.824 490.344 Output Total 300 Balance 405.696 638.824 190.344 Intake: Intake, IV Titration 165.696 48.824 190.344 Amount Heparin Sod,Pork in 0.45% 165.696 48.824 190.344 NaCl 25,000 unit In 0.45 % NaCl 1 250ml.bag @ 18 UNITS/KG/HR 21.228 mls/hr IV .[id number] [facility] Rx#: [id number] Oral 240 590 300 Output: Urine 300 Other: Voiding Method Bedside Commode Bedpan Bedpan Bedpan Diaper Diaper Diaper # Voids 3 4 2 - Exam General: Non-toxic, in no acute distress, appears stated age HEENT: NC/AT, anicteric sclerae, moist conjunctiva, no lid-lag, PERRLA Cardiovascular: S1/S2 wnl, no murmurs, rubs, or gallops Lungs: Clear to auscultation, normal respiratory effort, no accessory muscle use Abdominal: Soft, non-tender, non-distended, no guarding, rebound, or rigidity Skin: Warm, dry Extremities: No edema or contractures Psychiatric: Alert and oriented to person, place and time, appropriate affect Neuro: CN II-XII grossly intact, no focal deficits - Labs CBC & Chem 7: 10/30/18 06:40 10/29/18 07:08 Labs: Abnormal Lab Results - Last 24 Hours (Table) 10/29/18 10/30/18 10/30/18 Range/Units 14:51 06:40 06:40 RBC 3.55 L (3.80-5.40) m/uL Hgb 10.7 L (11.4-16.0) gm/dL Hct 33.3 L (34.0-46.0) % RDW 16.6 H (11.5-15.5) % PT 16.6 H (9.0-12.0) sec INR 1.7 H (<1.2) APTT 69.4 H (22.0-30.0) sec 10/30/18 Range/Units 06:40 RBC (3.80-5.40) m/uL Hgb (11.4-16.0) gm/dL Hct (34.0-46.0) % RDW (11.5-15.5) % PT (9.0-12.0) sec INR (<1.2) APTT 82.1 H (22.0-30.0) sec Microbiology - Last 24 Hours (Table) 10/27/18 21:37 Urine Culture - Final Urine,Voided Klebsiella oxytoca 10/27/18 21:08 Blood Culture - Preliminary Blood No Growth after 48 hours Assessment and Plan Plan: UTI, sepsis resolved -Switched to Bactrim -Culture grew Klebsiella Hyponatremia -Resolved Hx of PE (recurrent, w/ possible hx of DVT as well), subtherapeutic on Coumadin -Will bridge with Heparin -C/w Coumadin per pharmacy dosing -Monitor INR Normocytic anemia -Monitor for now Chronic conditions: chronic diastolic CHF not in acute exacerbation, hyperlipidemia, hypertension -Resume home medications DVT prophylaxis -IV heparin Discussed with: Patient Anticipated discharge date: 10/31/[address]: Home A total of 30 minutes was spent on the care of this complex patient more than 50 % of the time was spent in counseling and care coordination.
[2018-10-30] MEDS ORDERED: WARFARIN 3 MG TAB PO ONE (18:00)
[2018-10-30] MEDS: diphenhydrAMINE 25 MG CAP PO SCH (20:46)
[2018-10-30 21:03] VITALS: RESP 16
[2018-10-31] MEDS: HEPARIN SOD,PORK IN 0.45% NACL 25,000 UNIT in 0.45% NACL 1 250ML.BAG IV SCH (04:47)
[2018-10-31 05:35] VITALS: BP 114/57; TEMP 97.9
[2018-10-31 07:36] LABS: Basophils % (A) 0 %; Eosinophils # (A) 0.2 k/uL (0-0.7); Eosinophils % (A) 3 %; HGB 12.2 gm/dL (11.4-16.0); Lymphocytes # (A) 2.1 k/uL (1.0-4.8); Lymphocytes % (A) 31 %; MCH 29.3 pg (25.0-35.0); MCHC 32.2 g/dL (31.0-37.0); MCV 90.8 fL (80.0-100.0); Monocytes # (A) 0.4 k/uL (0-1.0); Monocytes % (A) 6 %; Neutrophils # (A) 3.8 k/uL (1.3-7.7); Neutrophils % (A) 57 %; Platelet Count 333 k/uL (150-450); RBC 4.18 m/uL (3.80-5.40); RDW 15.9 % (11.5-15.5); WBC 6.7 k/uL (3.8-10.6)
[2018-10-31 07:46] LABS: INR 1.9 (<1.2); Partial Thromboplastin Time 85.2 sec (22.0-30.0); Prothrombin Time 18.3 sec (9.0-12.0)
[2018-10-31] MEDS: ALLOPURINOL 300 MG TAB PO SCH (08:18)
[2018-10-31] MEDS: CALCIUM CARB-VIT D 500MG-200UN 1 EACH TAB PO SCH (08:18)
[2018-10-31] MEDS: LISINOPRIL 20 MG TAB PO SCH (08:18)
[2018-10-31] MEDS: POTASSIUM CHLORIDE ER 20 MEQ TAB.ER PO SCH (08:18)
[2018-10-31] MEDS: ISOSORBIDE MONONITRATE ER 30 MG TAB.ER.24H PO SCH (08:19)
[2018-10-31] MEDS: ASPIRIN 325 MG TAB PO SCH (08:19)
[2018-10-31] MEDS: LORazepam 0.5 MG TAB PO SCH (08:19)
[2018-10-31] MEDS: amLODIPine 5 MG TAB PO SCH (08:19)
[2018-10-31] MEDS: ASCORBIC ACID 500 MG TAB PO SCH (08:19)
[2018-10-31] MEDS: PANTOPRAZOLE 40 MG TABLET PO SCH (08:19)
[2018-10-31] MEDS: MULTIVITAMINS, THERA 1 EACH TAB PO SCH (08:19)
[2018-10-31] MEDS: FUROSEMIDE 40 MG TAB PO SCH (08:19)
[2018-10-31] MEDS: METOPROLOL TARTRATE 25 MG TAB PO SCH (08:20)
[2018-10-31] MEDS: PRAVASTATIN SODIUM 20 MG TAB PO SCH (08:20)
[2018-10-31] MEDS: PARoxetine 10 MG TAB PO SCH (08:20)
[2018-10-31] MEDS ORDERED: IPRATROPIUM-ALBUTEROL 3 ML NEB INHALATION STA (08:21)
[2018-10-31] MEDS: ACETAMINOPHEN TAB 325 MG TAB PO PRN (08:32)
[2018-10-31 09:11] VITALS: PULSE 76
--- NOTE | 2018-10-31 12:31 | P.DS ---
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 The patient at stated that for the past 5 days prior to presentation, her symptoms gradually worsened. In the emergency room, she underwent an extensive evaluation with a urinalysis that was consistent with a UTI. She was started on IV Rocephin and was admitted for further management. The patient's INR was also subtherapeutic at 1.6 and she was continued on Coumadin and was initiated on IV heparin for bridging. The patient had noted that she may have missed one or two doses prior to admission. The patient's INR gradually increased to 1.9. She was seen and examined at the bedside on the day of discharge. She was in good spirits and was eager to be discharged. She denied fever, chills, dysuria, nausea, vomiting, chest pain, or SOB. Physical Examination General: Non-toxic, in no acute distress, appears stated age HEENT: NC/AT, anicteric sclerae, moist conjunctiva, no lid-lag, PERRLA Cardiovascular: S1/S2 wnl, no murmurs, rubs, or gallops Lungs: Clear to auscultation, normal respiratory effort, no accessory muscle use Abdominal: Soft, non-tender, non-distended, no guarding, rebound, or rigidity Skin: Warm, dry Extremities: No edema or contractures Psychiatric: Alert and oriented to person, place and time, appropriate affect Neuro: CN II-XII grossly intact, no focal deficits Discharge diagnosis: UTI, sepsis resolved; Hyponatremia, resolved; Hx of PE and DVT; Normocytic anemia; Chronic diastolic CHF not in acute exacerbation; HLD; HTN A total of 40 minutes of time were spent preparing this complex discharge summary. Patient Condition at Discharge: Fair Plan - Discharge Summary New Discharge Prescriptions: New Sulfamethox-Tmp 800-160Mg [Bactrim DS 800-160 mg] 1 tab PO Q12HR #5 tab Continue diphenhydrAMINE HCL [Benadryl] 25 mg PO HS Allopurinol [Zyloprim] 300 mg PO DAILY Potassium Chloride [Klor-Con 20] 20 meq PO DAILY Furosemide [Lasix] 40 mg PO DAILY Lisinopril [Zestril] 20 mg PO BID@0800,1600 Metoprolol Tartrate [Lopressor] 25 mg PO BID Vit A/Vit C/Vit E/Zinc/Copper [ICAPS SOFTGEL] 1 cap PO DAILY Multivitamins, Thera [Multivitamin (formulary)] 1 tab PO DAILY amLODIPine [Norvasc] 5 mg PO QAM Pravastatin Sodium [Pravachol] 20 mg PO DAILY Acetaminophen Tab [Tylenol] 650 mg PO Q6H PRN PRN Reason: Pain Omeprazole 20 mg PO DAILY Isosorbide Mononitrate ER [Imdur] 30 mg PO DAILY Cyclobenzaprine [Flexeril] 10 mg PO BID PRN PRN Reason: Pain LORazepam [Ativan] 0.5 mg PO BID 3 Days #6 tab PARoxetine HCL [Paxil] 30 mg PO BID Diazepam [Valium] 5 mg PO Q12H PRN PRN Reason: Anxiety Calcium Carbonate/Vitamin D3 [Calcium 600-Vit D3 200 Tablet] 1 tab PO BID Ascorbic Acid [Vitamin C] 500 mg PO DAILY Aspirin EC [Ecotrin] 325 mg PO DAILY Warfarin [Coumadin] 2 mg PO SUMOTUTHFR Loperamide HCl [Loperamide] 2 mg PO BID PRN PRN Reason: Diarrhea Discharge Medication List Allopurinol [Zyloprim] 300 mg PO DAILY 08/21/14 [History] Furosemide [Lasix] 40 mg PO DAILY 08/21/14 [History] Potassium Chloride [Klor-Con 20] 20 meq PO DAILY 08/21/14 [History] diphenhydrAMINE HCL [Benadryl] 25 mg PO HS 08/21/14 [History] Lisinopril [Zestril] 20 mg PO BID@0800,1600 11/17/15 [History] Metoprolol Tartrate [Lopressor] 25 mg PO BID 11/17/15 [History] Multivitamins, Thera [Multivitamin (formulary)] 1 tab PO DAILY 11/17/15 [History] Vit A/Vit C/Vit E/Zinc/Copper [ICAPS SOFTGEL] 1 cap PO DAILY 11/17/15 [History] amLODIPine [Norvasc] 5 mg PO QAM 07/03/16 [History] Acetaminophen Tab [Tylenol] 650 mg PO Q6H PRN 02/02/18 [History] Cyclobenzaprine [Flexeril] 10 mg PO BID PRN 02/02/18 [History] Isosorbide Mononitrate ER [Imdur] 30 mg PO DAILY 02/02/18 [History] Omeprazole 20 mg PO DAILY 02/02/18 [History] Pravastatin Sodium [Pravachol] 20 mg PO DAILY 02/02/18 [History] LORazepam [Ativan] 0.5 mg PO BID 3 Days #6 tab 02/04/18 [Rx] PARoxetine HCL [Paxil] 30 mg PO BID 03/27/18 [History] Ascorbic Acid [Vitamin C] 500 mg PO DAILY 10/27/18 [History] Aspirin EC [Ecotrin] 325 mg PO DAILY 10/27/18 [History] Calcium Carbonate/Vitamin D3 [Calcium 600-Vit D3 200 Tablet] 1 tab PO BID 10/27/18 [History] Diazepam [Valium] 5 mg PO Q12H PRN 10/27/18 [History] Loperamide HCl [Loperamide] 2 mg PO BID PRN 10/27/18 [History] Warfarin [Coumadin] 2 mg PO SUMOTUTHFR 10/27/18 [History] Sulfamethox-Tmp 800-160Mg [Bactrim DS 800-160 mg] 1 tab PO Q12HR #5 tab 10/31/18 [Rx] Follow up Appointment(s)/Referral(s): Mainor Abbott MD [STAFF PHYSICIAN] - 11/04/18 3:15 pm ([place] location [address] .) [facility],Nurse [NON-STAFF] - 1-2 Days Gage Gastelum MD [Primary Care Provider] - 11/08/18 1:30 pm Patient Instructions/Handouts: Sulfamethoxazole/Trimethoprim (By mouth), Warfarin (By mouth), Urinary Tract Infection in Women (DC), Sepsis (GEN), Vitamin K in Foods (DC) Activity/Diet/Wound Care/Special Instructions: *Patient advised to follow up for INR testing. See prescription to have blood drawn on 11/03/18 *Patient also advised to avoid exposure to direct sunlight due to photo-toxicity of Bactrim. *Advised to maintain good fluid intake. Discharge Disposition: HOME SELF-CARE
[2018-10-31] MEDS ORDERED: WARFARIN 3 MG TAB PO ONE (18:00)
== END 2018-10-31 12:39 | disposition home health service (06) | DRG 872 ==
LOC: EC 20:59 → 3NMEDONC 22:42 → OBSVTOIN 10-30 13:14
PROVIDERS: ADMIT Family Medicine; ATTEND Family Medicine
DX: A41.9 Sepsis, unspecified organism (principal); Z68.41 Body mass index [BMI] 40.0-44.9, adult; I50.32 Chronic diastolic (congestive) heart failure; E87.1 Hypo-osmolality and hyponatremia; N39.0 Urinary tract infection, site not specified; E66.01 Morbid (severe) obesity due to excess calories; E78.5 Hyperlipidemia, unspecified; F41.1 Generalized anxiety disorder; K21.9 Gastro-esophageal reflux disease without esophagitis; M19.90 Unspecified osteoarthritis, unspecified site; H35.30 Unspecified macular degeneration; I11.0 Hypertensive heart disease with heart failure; M10.9 Gout, unspecified; D64.9 Anemia, unspecified; Z96.651 Presence of right artificial knee joint; M81.0 Age-related osteoporosis without current pathological fracture; Z79.01 Long term (current) use of anticoagulants; Z79.82 Long term (current) use of aspirin; Z79.899 Other long term (current) drug therapy; Z80.8 Family history of malignant neoplasm of other organs or systems; Z82.3 Family history of stroke; Z82.49 Family history of ischemic heart disease and other diseases of the circulatory system; Z86.711 Personal history of pulmonary embolism; Z86.718 Personal history of other venous thrombosis and embolism; Z90.710 Acquired absence of both cervix and uterus; Z99.3 Dependence on wheelchair; Z88.6 Allergy status to analgesic agent; Z88.1 Allergy status to other antibiotic agents; Z91.011 Allergy to milk products; Z88.5 Allergy status to narcotic agent; Z88.8 Allergy status to other drugs, medicaments and biological substances; Z91.018 Allergy to other foods; Z91.048 Other nonmedicinal substance allergy status; Z87.440 Personal history of urinary (tract) infections; Z86.19 Personal history of other infectious and parasitic diseases; Z90.49 Acquired absence of other specified parts of digestive tract; Z90.89 Acquired absence of other organs; Z98.51 Tubal ligation status; Z98.42 Cataract extraction status, left eye; Z98.41 Cataract extraction status, right eye
CPT/HCPCS: 36415; 71046; 80048; 80053; 81001; 83605; 83735; 84100; 85025; 85610; 85730; 87040; 87077; 87086; 87186; 87502; 94640; 96365; 99285

== ENCOUNTER → 2018-11-03 | Outpatient (CLI) | payer MEDICARE ==
[2018-11-03 16:03] LABS: INR 3.1 (<1.2); Prothrombin Time 30.3 sec (9.0-12.0)
== END | disposition home or self-care (01) ==
LOC: LABWHC1 14:21
PROVIDERS: ATTEND Family Medicine
DX: I26.99 Other pulmonary embolism without acute cor pulmonale (principal)
CPT/HCPCS: 36415; 85610

== ENCOUNTER 2019-03-18 15:04 | Inpatient (IN) | payer MEDICARE ==
[2019-03-18 15:44] LABS: Glucose,Whole Blood 134 mg/dL (75-99)
[2019-03-18] MEDS ORDERED: SODIUM CHLORIDE 0.9% 1,000 ML IV ONE ×2 (15:49)
--- NOTE | 2019-03-18 15:54 | ED ---
Altered Mental Status HPI - General Chief Complaint: Altered Mental Status Stated Complaint: Mental status change Time Seen by Provider: 03/18/19 15:10 Source: patient, EMS, RN notes reviewed, old records reviewed Mode of arrival: EMS Limitations: physical limitation - History of Present Illness Initial Comments: this is a 73-year-old female she presents today for evaluation of altered mental status. Patient also having issues with recent PICC line removal patient is currently a PICC lines and cellulitis. Patient is a poor historian his sinuses appear from EMS and patient's chart. Patient was also noted to have fever by staff. Patient herself currently without complaint MD Complaint: altered mental status, confusion, other (fever and loss of PICC line) -: hour(s) Severity: moderate Consistency of Symptoms: waxing and waning, getting worse Context: history of similar presentation, recent fever Associated Symptoms: denies other symptoms - Related Data Home Medications Medication Instructions Recorded Confirmed Allopurinol [Zyloprim] 300 mg PO DAILY 08/21/14 10/27/18 Furosemide [Lasix] 40 mg PO DAILY 08/21/14 10/27/18 Potassium Chloride [Klor-Con 20] 20 meq PO DAILY 08/21/14 10/27/18 diphenhydrAMINE HCL [Benadryl] 25 mg PO HS 08/21/14 10/27/18 Lisinopril [Zestril] 20 mg PO BID@0800,1600 11/17/15 10/27/18 Metoprolol Tartrate [Lopressor] 25 mg PO BID 11/17/15 10/27/18 Multivitamins, Thera [Multivitamin 1 tab PO DAILY 11/17/15 10/27/18 (formulary)] Vit A/Vit C/Vit E/Zinc/Copper 1 cap PO DAILY 11/17/15 10/27/18 [ICAPS SOFTGEL] amLODIPine [Norvasc] 5 mg PO QAM 07/03/16 10/27/18 Acetaminophen Tab [Tylenol] 650 mg PO Q6H PRN 02/02/18 10/27/18 Cyclobenzaprine [Flexeril] 10 mg PO BID PRN 02/02/18 10/27/18 Isosorbide Mononitrate ER [Imdur] 30 mg PO DAILY 02/02/18 10/27/18 Omeprazole 20 mg PO DAILY 02/02/18 10/27/18 Pravastatin Sodium [Pravachol] 20 mg PO DAILY 02/02/18 10/27/18 PARoxetine HCL [Paxil] 30 mg PO BID 03/27/18 10/27/18 Ascorbic Acid [Vitamin C] 500 mg PO DAILY 10/27/18 10/27/18 Aspirin EC [Ecotrin] 325 mg PO DAILY 10/27/18 10/27/18 Calcium Carbonate/Vitamin D3 1 tab PO BID 10/27/18 10/27/18 [Calcium 600-Vit D3 200 Tablet] Diazepam [Valium] 5 mg PO Q12H PRN 10/27/18 10/27/18 Loperamide HCl [Loperamide] 2 mg PO BID PRN 10/27/18 10/27/18 Warfarin [Coumadin] 2 mg PO SUMOTUTHFR 10/27/18 10/27/18 Previous Rx's Medication Instructions Recorded LORazepam [Ativan] 0.5 mg PO BID 3 Days #6 tab 02/04/18 Sulfamethox-Tmp 800-160Mg [Bactrim 1 tab PO Q12HR #5 tab 10/31/18 DS 800-160 mg] Allergies Allergy/AdvReac Type Severity Reaction Status Date / Time adhesive Allergy Rash/Hives Verified 03/18/19 15:16 carbamazepine [From Tegretol] Allergy Rash/Hives Verified 03/18/19 15:16 carisoprodol [From Soma] Allergy lowers b/p Verified 03/18/19 15:16 quickly & passes out doxycycline calcium Allergy Rash/Hives Verified 03/18/19 15:16 [From Vibramycin] doxycycline hyclate Allergy Rash/Hives,vomited Verified 03/18/19 15:16 [From Vibramycin] blood doxycycline monohydrate Allergy Rash/Hives,vomited Verified 03/18/19 15:16 [From Vibramycin] blood erythromycin base Allergy Rash/Hives,vomited Verified 03/18/19 15:16 [From E-Mycin] blood hydrocodone bitartrate Allergy abdominal Verified 03/18/19 15:16 [From Vicodin] pain, diarrhea NSAIDS (Non-Steroidal Allergy Swelling Verified 03/18/19 15:16 Anti-Inflamma piroxicam [From Feldene] Allergy Swelling Verified 03/18/19 15:16 ciprofloxacin [From Cipro] AdvReac Nausea & Verified 03/18/19 15:16 Vomiting corn [Vichy] AdvReac Diarrhea Verified 03/18/19 15:16 milk AdvReac Diarrhea Verified 03/18/19 15:16 wheat AdvReac Diarrhea Verified 03/18/19 15:16 Review of Systems ROS Statement: Those systems with pertinent positive or pertinent negative responses have been documented in the HPI. ROS Other: All systems not noted in ROS Statement are negative. Past Medical History Past Medical History: Eye Disorder, GERD/Reflux, Hypertension, Osteoarthritis (OA), Pulmonary Embolus (PE) Additional Past Medical History / Comment(s): DDD, gastroenteritis, h-pylori, gout, TMJ, bulging discs, left eye blind, macular degeneration BL eyes, multiple falls (not recent), transfers w/ walker to wheelchair, chronic UTI, osteoporosis, hypoglycemia. History of Any Multi-Drug Resistant Organisms: VRE Date of last positivie culture/infection: August 2013 MDRO Source:: Right knee Past Surgical History: Hysterectomy, Joint Replacement, Orthopedic Surgery, Tubal Ligation Additional Past Surgical History / Comment(s): Sternocleidomastoidectomy (right), right shoulder rotator cuff, rectocele/cystocele, right foot - Varma's neuroma/hammer toe, left outer forearm arthroscopy and shortening left ulna - plates and screws inserted, right wrist bundle of nerves , right knee arthroscopy/realignment of tendon/tibia/kneecap, 07-20-13 right knee replacement, 08-10-13 large hematoma removed, BL vitrectomies, BL cataract surgery, right right femur benign tumor removed, left foot bone spur. Right AKA done on Feb 13 per Pt of this year. Past Anesthesia/Blood Transfusion Reactions: Postoperative Nausea & Vomiting (PONV) Additional Past Anesthesia/Blood Transfusion Reaction / Comment(s): no complications with prior blood transfusion Past Psychological History: Anxiety, Depression Smoking Status: Never smoker - Past Family History Brother(s) Family Medical History: Cancer, Congestive Heart Failure (CHF) Additional Family Medical History / Comment(s): Heart problems, CABG, oral CA, pacemaker/defib. Father Family Medical History: Congestive Heart Failure (CHF), Hyperlipidemia, Hypertension, Myocardial Infarction ([place]) Additional Family Medical History / Comment(s): at 97 years old. Mother Family Medical History: Congestive Heart Failure (CHF), CVA/TIA Additional Family Medical History / Comment(s): Pacemaker - January 16 at age 94 a few days after CVA. General Exam Limitations: physical limitation General appearance: alert, in no apparent distress Head exam: Present: atraumatic, normocephalic, normal inspection Eye exam: Present: normal appearance, PERRL, EOMI. Absent: scleral icterus, conjunctival injection, periorbital swelling ENT exam: Present: normal exam, mucous membranes moist Neck exam: Present: normal inspection. Absent: tenderness, meningismus, lymphadenopathy Respiratory exam: Present: normal lung sounds bilaterally. Absent: respiratory distress, wheezes, rales, rhonchi, stridor Cardiovascular Exam: Present: regular rate, normal rhythm, normal heart sounds. Absent: systolic murmur, diastolic murmur, rubs, gallop, clicks GI/Abdominal exam: Present: soft, normal bowel sounds. Absent: distended, tenderness, guarding, rebound, rigid Extremities exam: Present: normal inspection, full ROM, normal capillary refill. Absent: tenderness, pedal edema, joint swelling, calf tenderness Back exam: Present: normal inspection Neurological exam: Present: alert, oriented X3, CN II-XII intact Psychiatric exam: Present: normal affect, normal mood Skin exam: Present: warm, dry, intact, normal color. Absent: rash Course Vital Signs 03/18/19 03/18/19 15:10 17:33 Temperature 100.4 F H 98.7 F Pulse Rate 100 88 Respiratory 18 18 Rate Blood Pressure 125/100 130/73 O2 Sat by Pulse 96 97 Oximetry - Reevaluation(s) Reevaluation #1: 03/18/19 16:44 medical record is reviewed - Consultations Consultation #1: to be admitted for Dr. Gastelum is agreeable for admission Medical Decision Making - Medical Decision Making 73 female here for evaluation patient with a for evaluation regards to PICC line removal, patient has postop wound infection, will be admitted for continued antibiotic treatment and replacement of PICC - Lab Data Result diagrams: 03/18/19 15:42 03/18/19 15:42 Lab Results 03/18/19 03/18/19 03/18/19 Range/Units 15:42 15:42 15:42 WBC 8.0 (3.8-10.6) k/uL RBC 4.33 (3.80-5.40) m/uL Hgb 12.6 (11.4-16.0) gm/dL Hct 40.0 (34.0-46.0) % MCV 92.4 (80.0-100.0) fL MCH 29.1 (25.0-35.0) pg MCHC 31.4 (31.0-37.0) g/dL RDW 15.5 (11.5-15.5) % Plt Count 278 (150-450) k/uL Neutrophils % 81 % Lymphocytes % 11 % Monocytes % 5 % Eosinophils % 2 % Basophils % 1 % Neutrophils # 6.5 (1.3-7.7) k/uL Lymphocytes # 0.9 L (1.0-4.8) k/uL Monocytes # 0.4 (0-1.0) k/uL Eosinophils # 0.1 (0-0.7) k/uL Basophils # 0.1 (0-0.2) k/uL Hypochromasia Marked PT (9.0-12.0) sec INR (<1.2) APTT (22.0-30.0) sec Sodium 138 (137-145) mmol/L Potassium 5.1 (3.5-5.1) mmol/L Chloride 106 (98-107) mmol/L Carbon Dioxide 23 (22-30) mmol/L Anion Gap 9 mmol/L BUN 40 H (7-17) mg/dL Creatinine 2.91 H (0.52-1.04) mg/dL Est GFR (CKD-EPI)AfAm 18 (>60 ml/min/1.73 sqM) Est GFR (CKD-EPI)NonAf 15 (>60 ml/min/1.73 sqM) Glucose 127 H (74-99) mg/dL POC Glucose (mg/dL) 134 H (75-99) mg/dL POC Glu Water Attendant ID Judith Sullivan Calcium 10.7 H (8.4-10.2) mg/dL Total Bilirubin 0.5 (0.2-1.3) mg/dL AST 27 (14-36) U/L ALT 15 (4-34) U/L Alkaline Phosphatase 118 (38-126) U/L Ammonia (<30) umol/L Troponin I (0.000-0.034) ng/mL Total Protein 6.5 (6.3-8.2) g/dL Albumin 3.4 L (3.5-5.0) g/dL Urine Color Urine Appearance (Clear) Urine pH (5.0-8.0) Ur Specific [place] (1.001-1.035) Urine Protein (Negative) Urine Glucose (UA) (Negative) Urine Ketones (Negative) Urine Blood (Negative) Urine Nitrite (Negative) Urine Bilirubin (Negative) Urine Urobilinogen (<2.0) mg/dL Ur Leukocyte Esterase (Negative) Urine RBC (0-5) /hpf Urine WBC (0-5) /hpf Ur Squamous Epith Cells (0-4) /hpf Amorphous Sediment (None) /hpf Urine Bacteria (None) /hpf Urine Yeast (Budding) (None) /hpf Urine Opiates Screen (NotDetected) Ur Oxycodone Screen (NotDetected) Urine Methadone Screen (NotDetected) Ur Propoxyphene Screen (NotDetected) Ur Barbiturates Screen (NotDetected) U Tricyclic Antidepress (NotDetected) Ur Phencyclidine Scrn (NotDetected) Ur Amphetamines Screen (NotDetected) U Methamphetamines Scrn (NotDetected) U Benzodiazepines Scrn (NotDetected) Urine Cocaine Screen (NotDetected) U Marijuana (THC) Screen (NotDetected) Influenza Type A RNA (Not Detectd) Influenza Type B (PCR) (Not Detectd) 03/18/19 03/18/19 03/18/19 Range/Units 15:42 15:42 15:42 WBC (3.8-10.6) k/uL RBC (3.80-5.40) m/uL Hgb (11.4-16.0) gm/dL Hct (34.0-46.0) % MCV (80.0-100.0) fL MCH (25.0-35.0) pg MCHC (31.0-37.0) g/dL RDW (11.5-15.5) % Plt Count (150-450) k/uL Neutrophils % % Lymphocytes % % Monocytes % % Eosinophils % % Basophils % % Neutrophils # (1.3-7.7) k/uL Lymphocytes # (1.0-4.8) k/uL Monocytes # (0-1.0) k/uL Eosinophils # (0-0.7) k/uL Basophils # (0-0.2) k/uL Hypochromasia PT 16.9 H (9.0-12.0) sec INR 1.7 H (<1.2) APTT 42.3 H (22.0-30.0) sec Sodium (137-145) mmol/L Potassium (3.5-5.1) mmol/L Chloride (98-107) mmol/L Carbon Dioxide (22-30) mmol/L Anion Gap mmol/L BUN (7-17) mg/dL Creatinine (0.52-1.04) mg/dL Est GFR (CKD-EPI)AfAm (>60 ml/min/1.73 sqM) Est GFR (CKD-EPI)NonAf (>60 ml/min/1.73 sqM) Glucose (74-99) mg/dL POC Glucose (mg/dL) (75-99) mg/dL POC Glu Water Attendant ID Calcium (8.4-10.2) mg/dL Total Bilirubin (0.2-1.3) mg/dL AST (14-36) U/L ALT (4-34) U/L Alkaline Phosphatase (38-126) U/L Ammonia <9 (<30) umol/L Troponin I <0.012 (0.000-0.034) ng/mL Total Protein (6.3-8.2) g/dL Albumin (3.5-5.0) g/dL Urine Color Urine Appearance (Clear) Urine pH (5.0-8.0) Ur Specific [place] (1.001-1.035) Urine Protein (Negative) Urine Glucose (UA) (Negative) Urine Ketones (Negative) Urine Blood (Negative) Urine Nitrite (Negative) Urine Bilirubin (Negative) Urine Urobilinogen (<2.0) mg/dL Ur Leukocyte Esterase (Negative) Urine RBC (0-5) /hpf Urine WBC (0-5) /hpf Ur Squamous Epith Cells (0-4) /hpf Amorphous Sediment (None) /hpf Urine Bacteria (None) /hpf Urine Yeast (Budding) (None) /hpf Urine Opiates Screen (NotDetected) Ur Oxycodone Screen (NotDetected) Urine Methadone Screen (NotDetected) Ur Propoxyphene Screen (NotDetected) Ur Barbiturates Screen (NotDetected) U Tricyclic Antidepress (NotDetected) Ur Phencyclidine Scrn (NotDetected) Ur Amphetamines Screen (NotDetected) U Methamphetamines Scrn (NotDetected) U Benzodiazepines Scrn (NotDetected) Urine Cocaine Screen (NotDetected) U Marijuana (THC) Screen (NotDetected) Influenza Type A RNA (Not Detectd) Influenza Type B (PCR) (Not Detectd) 03/18/19 03/18/19 03/18/19 Range/Units 16:02 16:02 16:15 WBC (3.8-10.6) k/uL RBC (3.80-5.40) m/uL Hgb (11.4-16.0) gm/dL Hct (34.0-46.0) % MCV (80.0-100.0) fL MCH (25.0-35.0) pg MCHC (31.0-37.0) g/dL RDW (11.5-15.5) % Plt Count (150-450) k/uL Neutrophils % % Lymphocytes % % Monocytes % % Eosinophils % % Basophils % % Neutrophils # (1.3-7.7) k/uL Lymphocytes # (1.0-4.8) k/uL Monocytes # (0-1.0) k/uL Eosinophils # (0-0.7) k/uL Basophils # (0-0.2) k/uL Hypochromasia PT (9.0-12.0) sec INR (<1.2) APTT (22.0-30.0) sec Sodium (137-145) mmol/L Potassium (3.5-5.1) mmol/L Chloride (98-107) mmol/L Carbon Dioxide (22-30) mmol/L Anion Gap mmol/L BUN (7-17) mg/dL Creatinine (0.52-1.04) mg/dL Est GFR (CKD-EPI)AfAm (>60 ml/min/1.73 sqM) Est GFR (CKD-EPI)NonAf (>60 ml/min/1.73 sqM) Glucose (74-99) mg/dL POC Glucose (mg/dL) (75-99) mg/dL POC Glu Water Attendant ID Calcium (8.4-10.2) mg/dL Total Bilirubin (0.2-1.3) mg/dL AST (14-36) U/L ALT (4-34) U/L Alkaline Phosphatase (38-126) U/L Ammonia (<30) umol/L Troponin I (0.000-0.034) ng/mL Total Protein (6.3-8.2) g/dL Albumin (3.5-5.0) g/dL Urine Color Yellow Urine Appearance Cloudy H (Clear) Urine pH 5.5 (5.0-8.0) Ur Specific [place] 1.016 (1.001-1.035) Urine Protein 1+ H (Negative) Urine Glucose (UA) Negative (Negative) Urine Ketones Trace H (Negative) Urine Blood Moderate H (Negative) Urine Nitrite Negative (Negative) Urine Bilirubin Negative (Negative) Urine Urobilinogen <2.0 (<2.0) mg/dL Ur Leukocyte Esterase Small H (Negative) Urine RBC 25 H (0-5) /hpf Urine WBC 8 H (0-5) /hpf Ur Squamous Epith Cells 3 (0-4) /hpf Amorphous Sediment Rare H (None) /hpf Urine Bacteria Rare H (None) /hpf Urine Yeast (Budding) Rare H (None) /hpf Urine Opiates Screen Detected H (NotDetected) Ur Oxycodone Screen Not Detected (NotDetected) Urine Methadone Screen Not Detected (NotDetected) Ur Propoxyphene Screen Not Detected (NotDetected) Ur Barbiturates Screen Not Detected (NotDetected) U Tricyclic Antidepress Not Detected (NotDetected) Ur Phencyclidine Scrn Not Detected (NotDetected) Ur Amphetamines Screen Not Detected (NotDetected) U Methamphetamines Scrn Not Detected (NotDetected) U Benzodiazepines Scrn Detected H (NotDetected) Urine Cocaine Screen Not Detected (NotDetected) U Marijuana (THC) Screen Not Detected (NotDetected) Influenza Type A RNA Not Detected (Not Detectd) Influenza Type B (PCR) Not Detected (Not Detectd) - EKG Data -: EKG Interpreted by Me (EKG shows sinus rhythm rate of 96 DC 104 QRS 74, QTC 409) - Radiology Data Radiology results: report reviewed (chest x-ray is negative for acute disease), image reviewed Disposition Clinical Impression: Fever, Sepsis, Postoperative wound infection, Status post PICC central line placement Narrative: PICC line fell out Disposition: ADMITTED IP TO THIS HOSP Condition: Fair Is patient prescribed a controlled substance at d/c from ED?: No Referrals: Gage Gastelum MD [Primary Care Provider] - 1-2 days
[2019-03-18 16:04] LABS: Basophils # (A) 0.1 k/uL (0-0.2); Basophils % (A) 1 %; Eosinophils # (A) 0.1 k/uL (0-0.7); Eosinophils % (A) 2 %; HGB 12.6 gm/dL (11.4-16.0); Hypochromasia Marked; Lymphocytes # (A) 0.9 k/uL (1.0-4.8); Lymphocytes % (A) 11 %; MCH 29.1 pg (25.0-35.0); MCHC 31.4 g/dL (31.0-37.0); MCV 92.4 fL (80.0-100.0); Mean Platelet Volume 7.8; Monocytes # (A) 0.4 k/uL (0-1.0); Monocytes % (A) 5 %; Neutrophils # (A) 6.5 k/uL (1.3-7.7); Neutrophils % (A) 81 %; Platelet Count 278 k/uL (150-450); RBC 4.33 m/uL (3.80-5.40); RDW 15.5 % (11.5-15.5)
[2019-03-18 16:11] LABS: INR 1.7 (<1.2); Partial Thromboplastin Time 42.3 sec (22.0-30.0); Prothrombin Time 16.9 sec (9.0-12.0)
[2019-03-18 16:21] LABS: Albumin 3.4 g/dL (3.5-5.0); Calcium 10.7 mg/dL (8.4-10.2); Potassium 5.1 mmol/L (3.5-5.1); Total Bilirubin 0.5 mg/dL (0.2-1.3); Total Protein 6.5 g/dL (6.3-8.2)
[2019-03-18 16:35] LABS: Amorphous Sediment,Urine Rare /hpf; Appearance,Urine Cloudy (Clear); Bacteria,Urine Rare /hpf; Bilirubin,Urine Negative (Negative); Blood,Urine Moderate (Negative); Budding Yeast,Urine Rare /hpf; Color,Urine Yellow; Glucose,Urine (UA) Negative (Negative); Ketones,Urine Trace (Negative); Leukocyte Esterase,Urine Small (Negative); Nitrite,Urine Negative (Negative); PH, Urine 5.5 (5.0-8.0); Protein,Urine 1+ (Negative); RBC,Urine 25 /hpf (0-5); Specific Gravity,Urine 1.016 (1.001-1.035); Squamous Epithelial Cell,Urine 3 /hpf (0-4); Urobilinogen,Urine <2.0 mg/dL (<2.0); WBC,Urine 8 /hpf (0-5)
[2019-03-18 16:40] LABS: Amphetamine Screen,Urine Not Detected (NotDetected); Barbiturate Screen,Urine Not Detected (NotDetected); Benzodiazepines Screen,Urine Detected (NotDetected); Cocaine Screen,Urine Not Detected (NotDetected); Methadone Screen, Urine Not Detected (NotDetected); Opiate Screen,Urine Detected (NotDetected); Oxycodone Screen, Urine Not Detected (NotDetected); Phencyclidine Screen,Urine Not Detected (NotDetected); Tricyclic Antidepressant,Urine Not Detected (NotDetected); Urn Cannabinoid Scrn Not Detected (NotDetected)
--- NOTE | 2019-03-18 17:03 | CT ---
EXAMINATION TYPE: CT brain wo con DATE OF EXAM: 03/18/2019 COMPARISON: None HISTORY: Altered mental status. CT DLP: 1147.4 mGycm Automated exposure control for dose reduction was used. Head CT performed using departmental protocol FINDINGS: There is no hemorrhage or hydrocephalus. White matter low-attenuation is present. Calvarium is intact . Paranasal sinuses and mastoid air cells as visualized are unremarkable. Orbits show increased atten uation along the posterior globe margin on the left. Cortical atrophy is noted. IMPRESSION: NO ACUTE BRAIN ABNORMALITY. AGE-RELATED CHANGES OF ATROPHY AND POSSIBLE CHRONIC SMALL VESSEL ISCHEMIA . NONSPECIFIC CALCIFICATIONS POSTERIOR LEFT GLOBE.
--- NOTE | 2019-03-18 17:09 | XR ---
EXAMINATION TYPE: XR abdomen acute w cxr DATE OF EXAM: 03/18/2019 COMPARISON: Chest x-ray 10/27/2018 HISTORY: Cough and abdomen pain TECHNIQUE: Supine, upright, and frontal chest views of the abdomen are obtained. FINDINGS: Chest x-ray shows stable heart size, heart is enlarged, patient is rotated. There is event ration of right hemidiaphragm. No evident airspace disease. There is no evidence for pneumoperitoneum. The bowel gas pattern is unremarkable as there is air throughout nondilated small and large bowel. No sizeable air fluid levels. No mass effects are seen. There are probable vascular calcifications noted in the pelvis, indeterminate calcifications in the l eft ilium may be due to calcified diverticula but are indeterminate. Surgical clips present right up per quadrant. IMPRESSION: Nonobstructive bowel gas pattern. Cardiomegaly. Indeterminate calcifications in the pelvis.
[2019-03-18] MEDS ORDERED: OMEPRAZOLE 10 MG PO PRN (22:25)
[2019-03-18] MEDS ORDERED: DIAZEPAM 5 MG TAB PO PRN (22:25)
[2019-03-18] MEDS ORDERED: LOPERAMIDE 2 MG CAP PO PRN (22:25)
[2019-03-18] MEDS ORDERED: CYCLOBENZAPRINE 10 MG TAB PO PRN (22:25)
[2019-03-18] MEDS ORDERED: NON FORMULARY DRUG (Cefepime Hcl [Maxipime] 2 GM) IV SCH (22:30)
[2019-03-18] MEDS ORDERED: WARFARIN 3 MG TAB PO ONE (23:15)
[2019-03-18] MEDS ORDERED: WARFARIN 5 MG TAB PO ONE (23:15)
[2019-03-18] MEDS: Acetaminophen-Codeine 300-30mg TAB PO PRN (23:24)
[2019-03-18] MEDS: SODIUM CHLORIDE 0.9% 1,000 ML IV SCH (23:25)
[2019-03-18] MEDS: ONDANSETRON 4 MG TAB PO PRN (23:35)
[2019-03-19] MEDS: FUROSEMIDE 40 MG TAB PO SCH (05:56)
[2019-03-19] MEDS: CEFEPIME 1 GM in SODIUM CHLORIDE 0.9% 50 ML IVPB SCH (05:56)
[2019-03-19 07:12] LABS: INR 1.8 (<1.2); Prothrombin Time 17.9 sec (9.0-12.0)
[2019-03-19] MEDS: ASPIRIN 325 MG TAB PO SCH (08:57)
[2019-03-19] MEDS: SODIUM CHLORIDE 0.9% 1,000 ML IV SCH ×3 (08:57→17:20)
[2019-03-19] MEDS: amLODIPine 5 MG TAB PO SCH (08:57)
[2019-03-19] MEDS: ENOXAPARIN 120 MG/0.8 ML SYRINGE SQ SCH (08:57)
[2019-03-19] MEDS: ALLOPURINOL 300 MG TAB PO SCH (08:58)
[2019-03-19] MEDS: ISOSORBIDE MONONITRATE ER 30 MG TAB.ER.24H PO SCH (08:58)
[2019-03-19] MEDS: CALCIUM CARB-VIT D 500MG-200UN 1 EACH TAB PO SCH ×2 (08:58→17:17)
[2019-03-19] MEDS: PARoxetine 10 MG TAB PO SCH ×2 (08:59→21:44)
[2019-03-19] MEDS: LISINOPRIL 20 MG TAB PO SCH ×2 (08:59→17:17)
[2019-03-19] MEDS: METOPROLOL SUCCINATE (ER) 25 MG TAB.ER.24H PO SCH (08:59)
[2019-03-19] MEDS: POTASSIUM CHLORIDE ER 20 MEQ TAB.ER PO SCH ×2 (08:59→09:02)
[2019-03-19] MEDS: PANTOPRAZOLE 40 MG/10 ML VIAL IV SCH (08:59)
[2019-03-19] MEDS: MULTIVITAMINS, THERA 1 EACH TAB PO SCH (08:59)
[2019-03-19] MEDS: SENNOSIDES-DOCUSATE SODIUM 1 EACH TAB PO SCH ×2 (08:59→21:44)
[2019-03-19] MEDS: LORazepam 0.5 MG TAB PO SCH ×2 (08:59→17:17)
[2019-03-19] MEDS ORDERED: NON FORMULARY DRUG (Lactose-Reduced Food [Ensure Plus] 120 ML) PO SCH (09:00)
--- NOTE | 2019-03-19 11:14 | P.HPIM ---
History of Present Illness H&P Date: 03/19/19 Maria Teresa Celeste is a 73-year-old female well known to my practice with prolonged past medical history, who was recently admitted to [facility] on the [facility], she was receiving IV antibiotic via PICC line. Patient was confused and agitated she had significant mental status changes she pulled out her PICC line. snf was attempting to replace PICC line, however patient was getting more confused and agitated and she was having low-grade fever of 100.4 decision was made to proceed with sending patient to emergency room for evaluation. 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 Past Medical History Past Medical History: Eye Disorder, GERD/Reflux, Hypertension, Osteoarthritis (OA), Pulmonary Embolus (PE) Additional Past Medical History / Comment(s): DDD, gastroenteritis, h-pylori, gout, TMJ, bulging discs, left eye blind, macular degeneration BL eyes, multiple falls (not recent), transfers w/ walker to wheelchair, chronic UTI, osteoporosis, hypoglycemia. History of Any Multi-Drug Resistant Organisms: VRE Date of last positivie culture/infection: August 2013 MDRO Source:: Right knee Past Surgical History: Hysterectomy, Joint Replacement, Orthopedic Surgery, Tubal Ligation Additional Past Surgical History / Comment(s): Sternocleidomastoidectomy (right), right shoulder rotator cuff, rectocele/cystocele, right foot - Varma's neuroma/hammer toe, left outer forearm arthroscopy and shortening left ulna - plates and screws inserted, right wrist bundle of nerves , right knee arthroscopy/realignment of tendon/tibia/kneecap, 07-20-13 right knee replacement, 08-10-13 large hematoma removed, BL vitrectomies, BL cataract surgery, right right femur benign tumor removed, left foot bone spur. Right AKA done on Feb 13 per Pt of this year. Past Anesthesia/Blood Transfusion Reactions: Postoperative Nausea & Vomiting (PONV) Additional Past Anesthesia/Blood Transfusion Reaction / Comment(s): no complications with prior blood transfusion Past Psychological History: Anxiety, Depression Additional Psychological History / Comment(s): From [facility] Smoking Status: Never smoker Past Alcohol Use History: None Reported Past Drug Use History: None Reported - Past Family History Brother(s) Family Medical History: Cancer, Congestive Heart Failure (CHF) Additional Family Medical History / Comment(s): Heart problems, CABG, oral CA, pacemaker/defib. Father Family Medical History: Congestive Heart Failure (CHF), Hyperlipidemia, Hypertension, Myocardial Infarction ([place]) Additional Family Medical History / Comment(s): at 97 years old. Mother Family Medical History: Congestive Heart Failure (CHF), CVA/TIA Additional Family Medical History / Comment(s): Pacemaker - January 16 at age 94 a few days after CVA. Medications and Allergies Home Medications Medication Instructions Recorded Confirmed Type Allopurinol [Zyloprim] 300 mg PO DAILY@0900 08/21/14 03/18/19 History Furosemide [Lasix] 40 mg PO DAILY@0600 08/21/14 03/18/19 History Potassium Chloride [Klor-Con 20] 20 meq PO DAILY@0900 08/21/14 03/18/19 History diphenhydrAMINE HCL [Benadryl] 25 mg PO HS PRN 08/21/14 03/18/19 History Lisinopril [Zestril] 20 mg PO BID@0900,1700 11/17/15 03/18/19 History Multivitamins, Thera [Multivitamin 1 tab PO DAILY@0900 11/17/15 03/18/19 History (formulary)] amLODIPine [Norvasc] 5 mg PO DAILY@0900 07/03/16 03/18/19 History Acetaminophen Tab [Tylenol] 650 mg PO Q5H PRN 02/02/18 03/18/19 History Cyclobenzaprine [Flexeril] 10 mg PO BID PRN 02/02/18 03/18/19 History Isosorbide Mononitrate ER [Imdur] 30 mg PO DAILY@0900 02/02/18 03/18/19 History Pravastatin Sodium [Pravachol] 20 mg PO HS@2100 02/02/18 03/18/19 History PARoxetine HCL [Paxil] 30 mg PO BID@0900,2100 03/27/18 03/18/19 History Diazepam [Valium] 5 mg PO Q6H PRN 10/27/18 03/18/19 History Loperamide HCl [Loperamide] 2 mg PO Q6H PRN 10/27/18 03/18/19 History Acetaminophen Tab [Tylenol Tab] 975 mg PO Q8H PRN 03/18/19 03/18/19 History Acetaminophen-Codeine 300-30mg 1 tab PO Q6H PRN 03/18/19 03/18/19 History [Tylenol w/codeine #3] Aspirin 325 mg PO DAILY@0900 03/18/19 03/18/19 History Calcium Carbonate/Vitamin D3 1 tab PO BID@0900,1700 03/18/19 03/18/19 History [Calcium 600-Vit D3 400 Tablet] Cefepime HCl [Maxipime] 2 gm IV Q8H 03/18/19 03/18/19 History DAPTOmycin [Cubicin] 700 mg IV DAILY@0900 03/18/19 03/18/19 History Enoxaparin [Lovenox] 105 mg SQ BID@0900,209903/18/19 03/18/19 History LORazepam [Ativan] 0.5 mg PO BID@0900,1700 03/18/19 03/18/19 History Lactose-Reduced Food [Ensure Plus] 120 ml PO BID@0900,209903/18/19 03/18/19 History Metoprolol Succinate (ER) [Toprol 25 mg PO DAILY@0900 03/18/19 03/18/19 History Xl] Omeprazole [PriLOSEC] 10 mg PO BID PRN 03/18/19 03/18/19 History Ondansetron HCl [Zofran] 4 mg PO Q6H PRN 03/18/19 03/18/19 History Sennosides/Docusate Sodium [Senna 1 tab PO BID@0900,209903/18/19 03/18/19 History Plus 8.6-50 mg Tablet] Warfarin Sodium [Coumadin] 4 mg PO DAILY@1700 03/18/19 03/18/19 History Allergies Allergy/AdvReac Type Severity Reaction Status Date / Time adhesive Allergy Rash/Hives Verified 03/18/19 20:27 carbamazepine [From Tegretol] Allergy Rash/Hives Verified 03/18/19 20:27 carisoprodol [From Soma] Allergy lowers b/p Verified 03/18/19 20:27 quickly & passes out doxycycline calcium Allergy Rash/Hives Verified 03/18/19 20:27 [From Vibramycin] doxycycline hyclate Allergy Rash/Hives,vomited Verified 03/18/19 20:27 [From Vibramycin] blood doxycycline monohydrate Allergy Rash/Hives,vomited Verified 03/18/19 20:27 [From Vibramycin] blood erythromycin base Allergy Rash/Hives,vomited Verified 03/18/19 20:27 [From E-Mycin] blood hydrocodone bitartrate Allergy abdominal Verified 03/18/19 20:27 [From Vicodin] pain, diarrhea NSAIDS (Non-Steroidal Allergy Swelling Verified 03/18/19 20:27 Anti-Inflamma piroxicam [From Feldene] Allergy Swelling Verified 03/18/19 20:27 ciprofloxacin [From Cipro] AdvReac Nausea & Verified 03/18/19 20:27 Vomiting corn [[place]] AdvReac Diarrhea Verified 03/18/19 20:27 milk AdvReac Diarrhea Verified 03/18/19 20:27 wheat AdvReac Diarrhea Verified 03/18/19 20:27 Physical Exam Vitals: Vital Signs Temp Pulse Pulse Resp BP BP Pulse Ox 03/19/19 04:35 98.2 F 87 16 112/56 96 03/18/19 20:10 99.2 F 99 16 109/63 03/18/19 19:34 98.4 F 99 18 104/75 97 03/18/19 17:33 98.7 F 88 18 130/73 97 03/18/19 15:10 100.4 F H 100 18 125/100 96 Intake and Output 03/18/19 03/19/19 03/19/19 22:59 06:59 14:59 Other: Voiding Method Bedpan # Voids 1 1 2 # Bowel Movements 0 Weight 120 kg in general patient is alert confused, slightly agitated in no apparent distress, is in the room during exam HEENT head normocephalic and atraumatic Neck is supple no JVD no goiter no lymphadenopathy Chest exam reveals a few scattered crackles no wheezing Cardiac exam reveals regular heart sounds S1 and S2 no gallops no murmurs Abdomen is soft nontender no organomegaly with normal bowel sounds Extremity there is above-knee amputation on the right there is mild swelling on the left, I was unable to examine surgical site due to patient agitation Neurological examination reveals patient is alert confused and slightly agitated otherwise no focal neurological deficit patient is moving all 4 extremities spontaneously no facial drooping speech is paranoid but fluent Results CBC & Chem 7: 03/18/19 15:42 03/18/19 15:42 Labs: Abnormal Lab Results - Last 24 Hours (Table) 03/18/19 03/18/19 03/18/19 Range/Units 15:42 15:42 15:42 Lymphocytes # 0.9 L (1.0-4.8) k/uL PT (9.0-12.0) sec INR (<1.2) APTT (22.0-30.0) sec BUN 40 H (7-17) mg/dL Creatinine 2.91 H (0.52-1.04) mg/dL Glucose 127 H (74-99) mg/dL POC Glucose (mg/dL) 134 H (75-99) mg/dL Calcium 10.7 H (8.4-10.2) mg/dL Albumin 3.4 L (3.5-5.0) g/dL Urine Appearance (Clear) Urine Protein (Negative) Urine Ketones (Negative) Urine Blood (Negative) Ur Leukocyte Esterase (Negative) Urine RBC (0-5) /hpf Urine WBC (0-5) /hpf Amorphous Sediment (None) /hpf Urine Bacteria (None) /hpf Urine Yeast (Budding) (None) /hpf Urine Opiates Screen (NotDetected) U Benzodiazepines Scrn (NotDetected) 03/18/19 03/18/19 03/18/19 Range/Units 15:42 16:02 16:02 Lymphocytes # (1.0-4.8) k/uL PT 16.9 H (9.0-12.0) sec INR 1.7 H (<1.2) APTT 42.3 H (22.0-30.0) sec BUN (7-17) mg/dL Creatinine (0.52-1.04) mg/dL Glucose (74-99) mg/dL POC Glucose (mg/dL) (75-99) mg/dL Calcium (8.4-10.2) mg/dL Albumin (3.5-5.0) g/dL Urine Appearance Cloudy H (Clear) Urine Protein 1+ H (Negative) Urine Ketones Trace H (Negative) Urine Blood Moderate H (Negative) Ur Leukocyte Esterase Small H (Negative) Urine RBC 25 H (0-5) /hpf Urine WBC 8 H (0-5) /hpf Amorphous Sediment Rare H (None) /hpf Urine Bacteria Rare H (None) /hpf Urine Yeast (Budding) Rare H (None) /hpf Urine Opiates Screen Detected H (NotDetected) U Benzodiazepines Scrn Detected H (NotDetected) 03/19/19 Range/Units 06:33 Lymphocytes # (1.0-4.8) k/uL PT 17.9 H (9.0-12.0) sec INR 1.8 H (<1.2) APTT (22.0-30.0) sec BUN (7-17) mg/dL Creatinine (0.52-1.04) mg/dL Glucose (74-99) mg/dL POC Glucose (mg/dL) (75-99) mg/dL Calcium (8.4-10.2) mg/dL Albumin (3.5-5.0) g/dL Urine Appearance (Clear) Urine Protein (Negative) Urine Ketones (Negative) Urine Blood (Negative) Ur Leukocyte Esterase (Negative) Urine RBC (0-5) /hpf Urine WBC (0-5) /hpf Amorphous Sediment (None) /hpf Urine Bacteria (None) /hpf Urine Yeast (Budding) (None) /hpf Urine Opiates Screen (NotDetected) U Benzodiazepines Scrn (NotDetected) Thrombosis Risk Factor Assmnt - Choose All That Apply Any of the Below Risk Factors Present?: Yes Each Factor Represents 1 point: Obesity (BMI >25), Sepsis (< 1month) Other Risk Factors: Yes Each Risk Factor Represents 2 Points: Age 61-74 years Each Risk Factor Represents 3 Points: Family history of DVT/PE, History of DVT/PE Thrombosis Risk Factor Assessment Total Risk Factor Score: 10 Thrombosis Risk Factor Assessment Level: High Risk Assessment and Plan Plan: #1 Mental status changes, cause is not entirely clear, may be related to infection and low-grade fever, with check ammonia level, computed tomography scan done in the emergency room reviewed, will consult neurology for further evaluation. #2 Recent right lower extremity above-knee amputation with infection at the surgical site continue IV antibiotic, patient is maintained on cefepime and vancomycin, obtain a blood cultures, consult infectious disease, consult vascular surgery for follow-up. #3 underlying history of hypertension, well-controlled on current medications continue. #4 history of DVT and PE in the past maintained on Coumadin INR is subtherapeutic at 1.8 she is also maintained on Lovenox for bridging until INR is therapeutic she will be given Coumadin 5 mg by mouth today Will monitor INR in a.m. 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 Continue was Lovenox bridging until INR is therapeutic Will follow closely.
[2019-03-19 13:06] VITALS: BMI 42.7
[2019-03-19] MEDS ORDERED: NON FORMULARY DRUG (Warfarin Sodium [Coumadin] 4 MG) PO SCH (17:00)
[2019-03-19] MEDS ORDERED: WARFARIN 3 MG TAB PO ONE (18:00)
[2019-03-19] MEDS ORDERED: PRAVASTATIN SODIUM 20 MG TAB PO SCH (21:00)
[2019-03-19] MEDS: Acetaminophen-Codeine 300-30mg TAB PO PRN (21:55)
--- NOTE | 2019-03-19 22:52 | P.CONS ---
History of Present Illness - Reason for Consult Consult date: 03/19/19 Fever Requesting physician: Gage Gastelum - Chief Complaint mental status changes x 1 day - History of Present Illness Patient is a 73-year-old female who recently did have extended stay at 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 for the patient was transferred to [facility], over there the patient did have debridement of the right AKA stump patient subsequently was transferred to [facility] in the [place] for rehabilitation and was getting cefepime and daptomycin yesterday the patient becomes confused agitated and did pull up her PICC line for the patient was sent to [facility] ER for further evaluation on arrival to the ER patient did have low-grade fever 100.4 patient UA was mildly positive however white count was normal patient has been admitted to hospital he was continue cefepime infectious disease has been consulted for further recommendation of antibiotic at the time of evaluation this afternoon the patient is afebrile she is awake alert she is more in the hospital denies having any headache no chest pain shortness of breath or cough no abdominal pain denies any new symptoms the right AKA stump wound area mostly erythematous continue is currently being treated with wet-to-dry dressing. Review of Systems Positive point has been mentioned in HPI rest of the systems are negative Past Medical History Past Medical History: Eye Disorder, GERD/Reflux, Hypertension, Osteoarthritis (OA), Pulmonary Embolus (PE) Additional Past Medical History / Comment(s): DDD, gastroenteritis, h-pylori, gout, TMJ, bulging discs, left eye blind, macular degeneration BL eyes, multiple falls (not recent), transfers w/ walker to wheelchair, chronic UTI, osteoporosis, hypoglycemia. 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 MDRO Source:: Right knee Past Surgical History: Hysterectomy, Joint Replacement, Orthopedic Surgery, Tubal Ligation Additional Past Surgical History / Comment(s): Sternocleidomastoidectomy (right), right shoulder rotator cuff, rectocele/cystocele, right foot - Varma's neuroma/hammer toe, left outer forearm arthroscopy and shortening left ulna - plates and screws inserted, right wrist bundle of nerves , right knee arthroscopy/realignment of tendon/tibia/kneecap, 07-20-13 right knee replacement, 08-10-13 large hematoma removed, BL vitrectomies, BL cataract surgery, right right femur benign tumor removed, left foot bone spur. Right AKA done on Feb 13 per Pt of this year. Past Anesthesia/Blood Transfusion Reactions: Postoperative Nausea & Vomiting (PONV) Additional Past Anesthesia/Blood Transfusion Reaction / Comm: no complications with prior blood transfusion Past Psychological History: Anxiety, Depression Additional Psychological History / Comment(s): From [facility] Smoking Status: Never smoker Past Alcohol Use History: None Reported Past Drug Use History: None Reported - Past Family History Brother(s) Family Medical History: Cancer, Congestive Heart Failure (CHF) Additional Family Medical History / Comment(s): Heart problems, CABG, oral CA, pacemaker/defib. Father Family Medical History: Congestive Heart Failure (CHF), Hyperlipidemia, Hypertension, Myocardial Infarction ([place]) Additional Family Medical History / Comment(s): at 97 years old. Mother Family Medical History: Congestive Heart Failure (CHF), CVA/TIA Additional Family Medical History / Comment(s): Pacemaker - January 16 at age 94 a few days after CVA. Medications and Allergies Home Medications Medication Instructions Recorded Confirmed Type Allopurinol [Zyloprim] 300 mg PO DAILY@0900 08/21/14 03/18/19 History Furosemide [Lasix] 40 mg PO DAILY@0600 08/21/14 03/18/19 History Potassium Chloride [Klor-Con 20] 20 meq PO DAILY@0900 08/21/14 03/18/19 History diphenhydrAMINE HCL [Benadryl] 25 mg PO HS PRN 08/21/14 03/18/19 History Lisinopril [Zestril] 20 mg PO BID@0900,1700 11/17/15 03/18/19 History Multivitamins, Thera [Multivitamin 1 tab PO DAILY@0900 11/17/15 03/18/19 History (formulary)] amLODIPine [Norvasc] 5 mg PO DAILY@0900 07/03/16 03/18/19 History Acetaminophen Tab [Tylenol] 650 mg PO Q5H PRN 02/02/18 03/18/19 History Cyclobenzaprine [Flexeril] 10 mg PO BID PRN 02/02/18 03/18/19 History Isosorbide Mononitrate ER [Imdur] 30 mg PO DAILY@0900 02/02/18 03/18/19 History Pravastatin Sodium [Pravachol] 20 mg PO HS@209902/02/18 03/18/19 History PARoxetine HCL [Paxil] 30 mg PO BID@0900,2100 03/27/18 03/18/19 History Diazepam [Valium] 5 mg PO Q6H PRN 10/27/18 03/18/19 History Loperamide HCl [Loperamide] 2 mg PO Q6H PRN 10/27/18 03/18/19 History Acetaminophen Tab [Tylenol Tab] 975 mg PO Q8H PRN 03/18/19 03/18/19 History Acetaminophen-Codeine 300-30mg 1 tab PO Q6H PRN 03/18/19 03/18/19 History [Tylenol w/codeine #3] Aspirin 325 mg PO DAILY@0900 03/18/19 03/18/19 History Calcium Carbonate/Vitamin D3 1 tab PO BID@0900,1700 03/18/19 03/18/19 History [Calcium 600-Vit D3 400 Tablet] Cefepime HCl [Maxipime] 2 gm IV Q8H 03/18/19 03/18/19 History DAPTOmycin [Cubicin] 700 mg IV DAILY@0900 03/18/19 03/18/19 History Enoxaparin [Lovenox] 105 mg SQ BID@0900,209903/18/19 03/18/19 History LORazepam [Ativan] 0.5 mg PO BID@0900,1700 03/18/19 03/18/19 History Lactose-Reduced Food [Ensure Plus] 120 ml PO BID@0900,2100 03/18/19 03/18/19 History Metoprolol Succinate (ER) [Toprol 25 mg PO DAILY@0900 03/18/19 03/18/19 History Xl] Omeprazole [PriLOSEC] 10 mg PO BID PRN 03/18/19 03/18/19 History Ondansetron HCl [Zofran] 4 mg PO Q6H PRN 03/18/19 03/18/19 History Sennosides/Docusate Sodium [Senna 1 tab PO BID@0900,2100 03/18/19 03/18/19 History Plus 8.6-50 mg Tablet] Warfarin Sodium [Coumadin] 4 mg PO DAILY@1700 03/18/19 03/18/19 History Allergies Allergy/AdvReac Type Severity Reaction Status Date / Time adhesive Allergy Rash/Hives Verified 03/18/19 20:27 carbamazepine [From Tegretol] Allergy Rash/Hives Verified 03/18/19 20:27 carisoprodol [From Soma] Allergy lowers b/p Verified 03/18/19 20:27 quickly & passes out doxycycline calcium Allergy Rash/Hives Verified 03/18/19 20:27 [From Vibramycin] doxycycline hyclate Allergy Rash/Hives,vomited Verified 03/18/19 20:27 [From Vibramycin] blood doxycycline monohydrate Allergy Rash/Hives,vomited Verified 03/18/19 20:27 [From Vibramycin] blood erythromycin base Allergy Rash/Hives,vomited Verified 03/18/19 20:27 [From E-Mycin] blood hydrocodone bitartrate Allergy abdominal Verified 03/18/19 20:27 [From Vicodin] pain, diarrhea NSAIDS (Non-Steroidal Allergy Swelling Verified 03/18/19 20:27 Anti-Inflamma piroxicam [From Feldene] Allergy Swelling Verified 03/18/19 20:27 ciprofloxacin [From Cipro] AdvReac Nausea & Verified 03/18/19 20:27 Vomiting wheat AdvReac Diarrhea Verified 03/18/19 20:27 Physical Exam Vitals: Vital Signs Temp Pulse Pulse Resp BP BP Pulse Ox 03/19/19 11:59 97.1 F L 96 18 130/81 98 03/19/19 04:35 98.2 F 87 16 112/56 96 03/18/19 20:10 99.2 F 99 16 109/63 03/18/19 19:34 98.4 F 99 18 104/75 97 03/18/19 17:33 98.7 F 88 18 130/73 97 03/18/19 15:10 100.4 F H 100 18 125/100 96 Intake and Output 03/18/19 03/19/19 03/19/19 22:59 06:59 14:59 Other: Voiding Method Bedpan Bedpan Diaper Incontinent # Voids 1 1 1 # Bowel Movements 0 Weight 120 kg 120 kg GENERAL DESCRIPTION: Elderly female lying in bed, no distress. No tachypnea or accessory muscle of respiration use. HEENT: Shows Pallor , no scleral icterus. Oral mucous membrane is dry. NECK: Trachea central, no thyromegaly. LUNGS: Unlabored breathing. Clear to auscultation anteriorly. No wheeze or crackle. HEART: S1, S2, regular rate and rhythm. ABDOMEN: Soft, no tenderness , guarding or rigidity EXTREMITIES: Right AKA stump wound significant in size however the wound base with minimal slough tissue" granulation tissue no significant surrounding swelling redness or any foul-smelling drainage sKIN: No rash, no masses palpable. NEUROLOGICAL: The patient is awake, alert, oriented x2, mood and affect normal. Results CBC & Chem 7: 03/18/19 15:42 03/18/19 15:42 Labs: Abnormal Lab Results - Last 24 Hours (Table) 03/18/19 03/18/19 03/18/19 Range/Units 15:42 15:42 15:42 Lymphocytes # 0.9 L (1.0-4.8) k/uL PT (9.0-12.0) sec INR (<1.2) APTT (22.0-30.0) sec BUN 40 H (7-17) mg/dL Creatinine 2.91 H (0.52-1.04) mg/dL Glucose 127 H (74-99) mg/dL POC Glucose (mg/dL) 134 H (75-99) mg/dL Calcium 10.7 H (8.4-10.2) mg/dL Albumin 3.4 L (3.5-5.0) g/dL Urine Appearance (Clear) Urine Protein (Negative) Urine Ketones (Negative) Urine Blood (Negative) Ur Leukocyte Esterase (Negative) Urine RBC (0-5) /hpf Urine WBC (0-5) /hpf Amorphous Sediment (None) /hpf Urine Bacteria (None) /hpf Urine Yeast (Budding) (None) /hpf Urine Opiates Screen (NotDetected) U Benzodiazepines Scrn (NotDetected) 03/18/19 03/18/19 03/18/19 Range/Units 15:42 16:02 16:02 Lymphocytes # (1.0-4.8) k/uL PT 16.9 H (9.0-12.0) sec INR 1.7 H (<1.2) APTT 42.3 H (22.0-30.0) sec BUN (7-17) mg/dL Creatinine (0.52-1.04) mg/dL Glucose (74-99) mg/dL POC Glucose (mg/dL) (75-99) mg/dL Calcium (8.4-10.2) mg/dL Albumin (3.5-5.0) g/dL Urine Appearance Cloudy H (Clear) Urine Protein 1+ H (Negative) Urine Ketones Trace H (Negative) Urine Blood Moderate H (Negative) Ur Leukocyte Esterase Small H (Negative) Urine RBC 25 H (0-5) /hpf Urine WBC 8 H (0-5) /hpf Amorphous Sediment Rare H (None) /hpf Urine Bacteria Rare H (None) /hpf Urine Yeast (Budding) Rare H (None) /hpf Urine Opiates Screen Detected H (NotDetected) U Benzodiazepines Scrn Detected H (NotDetected) 03/19/19 Range/Units 06:33 Lymphocytes # (1.0-4.8) k/uL PT 17.9 H (9.0-12.0) sec INR 1.8 H (<1.2) APTT (22.0-30.0) sec BUN (7-17) mg/dL Creatinine (0.52-1.04) mg/dL Glucose (74-99) mg/dL POC Glucose (mg/dL) (75-99) mg/dL Calcium (8.4-10.2) mg/dL Albumin (3.5-5.0) g/dL Urine Appearance (Clear) Urine Protein (Negative) Urine Ketones (Negative) Urine Blood (Negative) Ur Leukocyte Esterase (Negative) Urine RBC (0-5) /hpf Urine WBC (0-5) /hpf Amorphous Sediment (None) /hpf Urine Bacteria (None) /hpf Urine Yeast (Budding) (None) /hpf Urine Opiates Screen (NotDetected) U Benzodiazepines Scrn (NotDetected) Assessment and Plan Assessment: patient admitted hospital with mental status changes in this patient who did have a low-grade fever as well-however her white count is normal this patient who recently did have extensive debridement of the right AKA stump wound with a procedure done at [facility] and the patient is currently getting cefe pime and daptomycin patient right AKA stump looks clean and currently no other clinical focus of infection UA is not significantly positive and no significant pneumonia on the chest x-ray Plan: 1 we will try to obtain culture report from [facility]- 2-patient to continue with cefepime and daptomycin 3-local wound care to the right AKA stump will be switched over to wound VAC black foam continuous pressure 125 mmHg seen Wednesday We will follow on clinical condition and cultures to further adjust medication if needed Thank you for this consultation we will follow the patient along with you Time with Patient: Greater than 30
[2019-03-19] MEDS: DAPTOmycin 500 MG in SODIUM CHLORIDE 0.9% 50 ML IVPB SCH (23:00)
[2019-03-20] MEDS: FUROSEMIDE 40 MG TAB PO SCH (06:07)
[2019-03-20] MEDS: CEFEPIME 1 GM in SODIUM CHLORIDE 0.9% 50 ML IVPB SCH (06:08)
[2019-03-20] MEDS: SODIUM CHLORIDE 0.9% 1,000 ML IV SCH ×3 (06:09→17:48)
[2019-03-20 08:43] LABS: INR 2.9 (<1.2); Prothrombin Time 28.1 sec (9.0-12.0)
[2019-03-20 08:47] LABS: Basophils # (A) 0.1 k/uL (0-0.2); Basophils % (A) 1 %; Eosinophils # (A) 0.2 k/uL (0-0.7); Eosinophils % (A) 2 %; HCT 27.3 % (34.0-46.0); Hypochromasia Marked; Lymphocytes # (A) 0.9 k/uL (1.0-4.8); Lymphocytes % (A) 10 %; MCHC 30.5 g/dL (31.0-37.0); MCV 95.1 fL (80.0-100.0); Mean Platelet Volume 7.8; Monocytes # (A) 0.4 k/uL (0-1.0); Monocytes % (A) 5 %; Neutrophils % (A) 81 %; Platelet Count 371 k/uL (150-450); RBC 2.87 m/uL (3.80-5.40); RDW 15.6 % (11.5-15.5); WBC 8.6 k/uL (3.8-10.6)
[2019-03-20 08:49] LABS: HGB 8.3 gm/dL (11.4-16.0)
[2019-03-20 09:09] LABS: Albumin 3.3 g/dL (3.5-5.0); C Reactive Protein 49.4 mg/L (<10.0); Calcium 9.6 mg/dL (8.4-10.2); Total Bilirubin 0.7 mg/dL (0.2-1.3); Total Protein 6.7 g/dL (6.3-8.2)
--- NOTE | 2019-03-20 11:11 | P.PN ---
Subjective Progress Note Date: 03/20/19 Maria Teresa Celeste is a 73-year-old female well known to my practice with prolonged past medical history, who was recently admitted to [facility] on the [facility] home, she was receiving IV antibiotic via PICC line. Patient was confused and agitated she had significant mental status changes she pulled out her PICC line. prison was attempting to replace PICC line, however patient was getting more confused and agitated and she was having low-grade fever of 100.4 decision was made to proceed with sending patient to emergency room for evaluation. 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 On 03/20/2019 patient is currently resting comfortably in bed. Patient does appear less confused than yesterday but still confused at times. Patient's creatinine elevated at 2.95 and bun 39. Nephrology services are following. INR today 2.9. Bridging Lovenox has been DC'd. Patient remains on IV antibiotics. Infectious disease, neurology, nephrology and vascular surgery following. At this time patient denies chest pain. Patient denies shortness of breath. Patient denies nausea vomiting or diarrhea Objective - Vital Signs Vital signs: Vital Signs Temp 98.4 F 03/20/19 05:18 Pulse 98 03/20/19 05:18 Resp 14 03/20/19 05:18 BP 105/53 03/20/19 05:18 Pulse Ox 96 03/20/19 05:18 Intake & Output 03/19/19 03/20/19 03/20/19 18:59 06:59 18:59 Intake Total 1040 1190 Balance 1040 1190 Weight 120 kg Intake: Intake, IV Titration 1040 1190 Amount Cefepime 1 gm In Sodium 100 Chloride 0.9% 50 ml @ 100 mls/hr IVPB Q24H JORGE Rx# :[id number] DAPTOmycin 500 mg In 50 Sodium Chloride 0.9% 50 ml @ 100 mls/hr IVPB Q48H JORGE Rx#:[id number] Sodium Chloride 0.9% 1, 1040 1040 000 ml @ 130 mls/hr IV . Q7H42M JORGE Rx#:[id number] Other: Voiding Method Bedpan Bedpan Diaper Diaper Incontinent Incontinent # Voids 2 3 # Bowel Movements 0 - Exam in general patient is alert confused, slightly agitated in no apparent distress, is in the room during exam HEENT head normocephalic and atraumatic Neck is supple no JVD no goiter no lymphadenopathy Chest exam reveals a few scattered crackles no wheezing Cardiac exam reveals regular heart sounds S1 and S2 no gallops no murmurs Abdomen is soft nontender no organomegaly with normal bowel sounds Extremity there is above-knee amputation on the right there is mild swelling on the left, I was unable to examine surgical site due to patient agitation Neurological examination reveals patient is alert confused and slightly agitated otherwise no focal neurological deficit patient is moving all 4 extremities spontaneously no facial drooping speech is paranoid but fluent - Labs CBC & Chem 7: 03/20/19 08:21 03/20/19 08:21 Labs: Abnormal Lab Results - Last 24 Hours (Table) 03/20/19 03/20/19 03/20/19 Range/Units 08:05 08:21 08:21 RBC 2.87 L (3.80-5.40) m/uL Hgb 8.3 L D (11.4-16.0) gm/dL Hct 27.3 L (34.0-46.0) % MCHC 30.5 L (31.0-37.0) g/dL RDW 15.6 H (11.5-15.5) % Lymphocytes # 0.9 L (1.0-4.8) k/uL PT 28.1 H (9.0-12.0) sec INR 2.9 H (<1.2) Chloride (98-107) mmol/L Carbon Dioxide (22-30) mmol/L BUN 40 H (7-17) mg/dL Creatinine 2.98 H (0.52-1.04) mg/dL Glucose (74-99) mg/dL AST (14-36) U/L C-Reactive Protein (<10.0) mg/L Albumin (3.5-5.0) g/dL 03/20/19 Range/Units 08:21 RBC (3.80-5.40) m/uL Hgb (11.4-16.0) gm/dL Hct (34.0-46.0) % MCHC (31.0-37.0) g/dL RDW (11.5-15.5) % Lymphocytes # (1.0-4.8) k/uL PT (9.0-12.0) sec INR (<1.2) Chloride 113 H (98-107) mmol/L Carbon Dioxide 19 L (22-30) mmol/L BUN 39 H (7-17) mg/dL Creatinine 2.95 H (0.52-1.04) mg/dL Glucose 112 H (74-99) mg/dL AST 43 H (14-36) U/L C-Reactive Protein 49.4 H (<10.0) mg/L Albumin 3.3 L (3.5-5.0) g/dL Microbiology - Last 24 Hours (Table) 03/18/19 15:42 Blood Culture - Preliminary Blood No Growth after 24 hours Assessment and Plan Assessment: #1 Mental status changes, cause is not entirely clear, may be related to infection and low-grade fever and acute kidney injury. computed tomography scan done in the emergency room reviewed, will consult neurology for further evaluation. Ammonia level less than 9 #2. Acute kidney injury. Creatinine 2.98 and bun 40. Nephrology services are following. Patient's home medications of lisinopril, potassium chloride and Lasix currently on hold. #3 Recent right lower extremity above-knee amputation with infection at the surgical site continue IV antibiotic, patient is maintained on cefepime and vancomycin, obtain a blood cultures, consult infectious disease, consult vascular surgery for follow-up. Patient maintained on IV antibiotics. Infectious disease following #4 underlying history of hypertension, well-controlled on current medications continue. 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 current INR 2.9. 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 GI prophylaxis Protonix Current INR 2.9 Lovenox has been DC'd maintained on Coumadin Neurology, nephrology, infectious disease and vascular surgery following Patient maintained on daptomycin and Maxipime for IV antibiotics. Continue normal saline at 100 Blood culture has been ordered I performed an examination of the patient and discussed their management with the Nurse Practitioner. I have reviewed the Nurse Practitioner's notes and agree with the documented findings and plan of care
[2019-03-20] MEDS: ASPIRIN 325 MG TAB PO SCH (11:48)
[2019-03-20] MEDS: LORazepam 0.5 MG TAB PO SCH ×2 (11:48→17:34)
[2019-03-20] MEDS: METOPROLOL SUCCINATE (ER) 25 MG TAB.ER.24H PO SCH (11:48)
[2019-03-20] MEDS: CALCIUM CARB-VIT D 500MG-200UN 1 EACH TAB PO SCH ×2 (11:48→17:34)
[2019-03-20] MEDS: MULTIVITAMINS, THERA 1 EACH TAB PO SCH (11:48)
[2019-03-20] MEDS: SENNOSIDES-DOCUSATE SODIUM 1 EACH TAB PO SCH ×2 (11:49→19:51)
[2019-03-20] MEDS: PARoxetine 10 MG TAB PO SCH ×2 (11:49→19:51)
[2019-03-20] MEDS: amLODIPine 5 MG TAB PO SCH (11:49)
[2019-03-20] MEDS: ISOSORBIDE MONONITRATE ER 30 MG TAB.ER.24H PO SCH (11:49)
[2019-03-20] MEDS: PANTOPRAZOLE 40 MG/10 ML VIAL IV SCH (11:49)
[2019-03-20] MEDS: POTASSIUM CHLORIDE ER 20 MEQ TAB.ER PO SCH (11:57)
[2019-03-20] MEDS: ENOXAPARIN 120 MG/0.8 ML SYRINGE SQ SCH (11:57)
[2019-03-20] MEDS: ALLOPURINOL 300 MG TAB PO SCH (11:58)
[2019-03-20] MEDS ORDERED: LIDOCAINE 1% INJ 10MG/ML (20 ML MDV) SQ ONE (12:51)
--- NOTE | 2019-03-20 14:52 | CONS ---
CONSULTATION REASON FOR CONSULT: Renal failure. HISTORY OF PRESENT ILLNESS: Patient is a 73-year-old female who was admitted to the hospital yesterday with history of confusion and altered mental status. Patient initially had a PICC line in which came out at the long term where she was prior to this admission. Patient was maintained on antibiotics for right knee infection after a right knee arthroplasty and subsequent above-knee amputation on the right side. Serum creatinine has been at 2.9 mg/dL this admission. Review of previous lab shows creatinine of 0.83 on 10/29/2018. Patient had been at [facility] in between October and February and I do not have those labs. Currently, patient has excellent urine output. Overall, she states she is feeling fair. No nephrotoxic agents on board. Patient is maintained on daptomycin for antibiotics. She is also maintained on IV fluids. Blood pressure is on the lower side with systolic around 105 mmHg this morning. PAST MEDICAL HISTORY: Gastroesophageal reflux disease, hypertension, osteoarthritis, history of PE, status post recent right AKA after infection and right knee arthroplasty. PAST SURGICAL HISTORY: Also include hysterectomy, tubal ligation, rotator cuff surgery, right foot surgery, removal of neuroma and surgery for hammertoe. SOCIAL HISTORY: Negative for smoking, drug abuse or alcohol abuse. MEDICATIONS: At home prior to admission Zyloprim, Lasix, potassium, Benadryl, Zestril, Norvasc, Tylenol, Flexeril, Imdur, Pravachol, Paxil, Valium, calcium, aspirin, Maxipime, Cubicin, insulin, subcu heparin Prilosec, Toprol, Coumadin. ALLERGIES: Include TEGRETOL, VIBRAMYCIN, ERYTHROMYCIN, VICODIN, NSAIDS, which cause swelling, MELOXICAM, CIPRO, CORN, MILK, WHEAT. PHYSICAL EXAMINATION: Currently, patient is comfortable, awake, not in any acute distress. Blood pressure was 105/53, heart rate 98 per minute, patient is afebrile. Examination of the heart S1, S2. Examination of lungs, bilateral breath sounds are heard. Abdomen is soft, non-tender. Examination of the lower extremities shows right AKA. No significant edema noted on the left side. 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 LABS: Show sodium 140, potassium 5.0, chloride 113, CO2 is 19, BUN 39, creatinine 2.65, hemoglobin 8.3 g/dL. ASSESSMENT: 1. Acute kidney injury, mostly acute tubular necrosis, currently nonoliguric. Patient is not on any nephrotoxic agents. I will discontinue the Norvasc as blood pressure remains low. 2. History of right AKA after infected right knee arthroplasty, maintained on antibiotics. Patient will need long-term antibiotics. Okay to proceed with PICC line. We can put it back in the right arm. 3. Anemia, multifactorial, no active bleeding noted at this time. PLAN: Continue IV fluids, continue to encourage increased oral intake. DC Norvasc as blood pressure is low. Continue to avoid nephrotoxic agents. Monitor renal function as outpatient once patient is discharged. Thank you for this consultation. Will continue to follow the patient with you during her hospitalization. MMODL / IJN: [id number] /
--- NOTE | 2019-03-20 17:37 | PN ---
PROGRESS NOTE DATE OF SERVICE: 03/20/2019 REASON FOR FOLLOWUP: Right AKA stump wound infection. INTERVAL HISTORY: The patient is currently afebrile. The patient has been breathing comfortably on room air. Denies having any chest pain or any cough. No nausea, vomiting, abdominal pain or any worsening of the right AKA stump. PHYSICAL EXAMINATION: Blood pressure 117/57 with a pulse of 100, temperature of 98.4. She is 96% on room air. General description is an elderly female lying in bed in no distress. RESPIRATORY SYSTEM: Unlabored breathing. Clear to auscultation anteriorly. HEART: S1, S2. Regular rate and rhythm. ABDOMEN: Soft. No tenderness. Right AKA stump is currently dressed, with no drainage on the dressing. LABS: Hemoglobin 8.3, white count 8.6, BUN of 39, creatinine 2.95. DIAGNOSTIC IMPRESSION AND PLAN: Patient admitted to hospital with a fever in this patient who recently did have extensive surgery for right above-knee amputation stump necrosis, status post extensive debridement. Patient in the outpatient setting has been on cefepime and daptomycin. That will be continued while trying to obtain cultures from [facility]. Local care to continue with wet-to-dry dressing changes at this point, as application of wound V.A.C. seems to be challenging because of the stitches that she has holding some of the wound. Continue with supportive care. MMODL / IJN: [id number] /
[2019-03-20] MEDS ORDERED: WARFARIN 2 MG TAB PO ONE (18:00)
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
[2019-03-20] MEDS: Acetaminophen-Codeine 300-30mg TAB PO PRN (23:21)
[2019-03-21] MEDS: SODIUM CHLORIDE 0.9% 1,000 ML IV SCH ×4 (01:42→23:52)
[2019-03-21] MEDS: Acetaminophen-Codeine 300-30mg TAB PO PRN ×3 (05:06→20:30)
[2019-03-21] MEDS: CEFEPIME 1 GM in SODIUM CHLORIDE 0.9% 50 ML IVPB SCH (05:06)
[2019-03-21 07:44] LABS: Anisocytosis Slight; Basophils % (A) 0 %; Eosinophils # (A) 0.1 k/uL (0-0.7); Eosinophils % (A) 2 %; HCT 24.1 % (34.0-46.0); HGB 7.3 gm/dL (11.4-16.0); Hypochromasia Marked; Lymphocytes # (A) 0.9 k/uL (1.0-4.8); Lymphocytes % (A) 11 %; MCH 28.5 pg (25.0-35.0); MCHC 30.1 g/dL (31.0-37.0); MCV 94.5 fL (80.0-100.0); Mean Platelet Volume 8.5; Monocytes # (A) 0.6 k/uL (0-1.0); Monocytes % (A) 7 %; Neutrophils # (A) 6.4 k/uL (1.3-7.7); Neutrophils % (A) 78 %; Platelet Count 301 k/uL (150-450); RBC 2.54 m/uL (3.80-5.40); RDW 16.1 % (11.5-15.5); WBC 8.1 k/uL (3.8-10.6)
[2019-03-21 07:48] LABS: INR 3.6 (<1.2); Prothrombin Time 34.3 sec (9.0-12.0)
[2019-03-21 08:15] LABS: Albumin 2.6 g/dL (3.5-5.0); Calcium 9.3 mg/dL (8.4-10.2); Potassium 4.4 mmol/L (3.5-5.1); Total Bilirubin 0.4 mg/dL (0.2-1.3); Total Protein 5.4 g/dL (6.3-8.2)
[2019-03-21] MEDS: ISOSORBIDE MONONITRATE ER 30 MG TAB.ER.24H PO SCH (08:18)
[2019-03-21] MEDS: LORazepam 0.5 MG TAB PO SCH ×2 (08:18→17:41)
[2019-03-21] MEDS: MULTIVITAMINS, THERA 1 EACH TAB PO SCH (08:18)
[2019-03-21] MEDS: METOPROLOL SUCCINATE (ER) 25 MG TAB.ER.24H PO SCH (08:18)
[2019-03-21] MEDS: ASPIRIN 325 MG TAB PO SCH (08:18)
[2019-03-21] MEDS: SENNOSIDES-DOCUSATE SODIUM 1 EACH TAB PO SCH ×2 (08:18→20:30)
[2019-03-21] MEDS: PARoxetine 10 MG TAB PO SCH ×2 (08:18→20:30)
[2019-03-21] MEDS: CALCIUM CARB-VIT D 500MG-200UN 1 EACH TAB PO SCH ×2 (08:18→17:43)
[2019-03-21] MEDS: PANTOPRAZOLE 40 MG/10 ML VIAL IV SCH (08:19)
--- NOTE | 2019-03-21 08:59 | P.PN ---
Subjective Progress Note Date: 03/21/19 Maria Teresa Celeste is a 73-year-old female well known to my practice with prolonged past medical history, who was recently admitted to [facility] on the [facility] home, she was receiving IV antibiotic via PICC line. Patient was confused and agitated she had significant mental status changes she pulled out her PICC line. retirement was attempting to replace PICC line, however patient was getting more confused and agitated and she was having low-grade fever of 100.4 decision was made to proceed with sending patient to emergency room for evaluation. 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 on the [place] for antibiotic management. On 03/20/2019 patient is currently resting comfortably in bed. Patient does appear less confused than yesterday but still confused at times. Patient's creatinine elevated at 2.95 and bun 39. Nephrology services are following. INR today 2.9. Bridging Lovenox has been DC'd. Patient remains on IV antibiotics. Infectious disease, neurology, nephrology and vascular surgery following. At this time patient denies chest pain. Patient denies shortness of breath. Patient denies nausea vomiting or diarrhea On 03/21/2019 patient is currently resting comfortably in bed eating breakfast. Patient seems confused than yesterday. Patient was evaluated by neurology services altered mental status changes likely secondary to infection and acute kidney injury per neurology. Creatinine slightly improved today 2.89 and bun 41. Nephrology, infectious disease, neurology and vascular surgery following. This time patient denies chest pain or shortness breath. Patient denies nausea vomiting or diarrhea. Patient denies any urinary burning and frequency Objective - Vital Signs Vital signs: Vital Signs Temp 98.6 F 03/21/19 04:07 Pulse 84 03/21/19 04:07 Resp 18 03/21/19 04:07 BP 116/60 03/21/19 04:07 Pulse Ox 94 L 03/21/19 04:07 Intake & Output 03/20/19 03/21/19 03/21/19 18:59 06:59 18:59 Intake Total 1040 2880 Balance 1040 2880 Intake: Intake, IV Titration 1040 1560 Amount Sodium Chloride 0.9% 1, 1040 1560 000 ml @ 130 mls/hr IV . Q7H42M [facility] Rx#:[id number] Oral 1320 Other: Voiding Method Bedpan Bedpan Diaper Diaper Incontinent Incontinent # Voids 3 # Bowel Movements 0 - Exam in general patient is alert confused, slightly agitated in no apparent distress, is in the room during exam HEENT head normocephalic and atraumatic Neck is supple no JVD no goiter no lymphadenopathy Chest exam reveals a few scattered crackles no wheezing Cardiac exam reveals regular heart sounds S1 and S2 no gallops no murmurs Abdomen is soft nontender no organomegaly with normal bowel sounds Extremity there is above-knee amputation on the right there is mild swelling on the left, I was unable to examine surgical site due to patient agitation Neurological examination patient is alert and oriented 3 no focal neurological deficit patient is moving all 4 extremities spontaneously no facial drooping speech is paranoid but fluent - Labs CBC & Chem 7: 03/21/19 07:24 03/21/19 07:24 Labs: Abnormal Lab Results - Last 24 Hours (Table) 03/20/19 03/21/19 03/21/19 Range/Units 08:21 07:24 07:24 RBC 2.54 L (3.80-5.40) m/uL Hgb 7.3 L (11.4-16.0) gm/dL Hct 24.1 L (34.0-46.0) % MCHC 30.1 L (31.0-37.0) g/dL RDW 16.1 H (11.5-15.5) % Lymphocytes # 0.9 L (1.0-4.8) k/uL PT 34.3 H (9.0-12.0) sec INR 3.6 H (<1.2) Chloride 113 H (98-107) mmol/L Carbon Dioxide 19 L (22-30) mmol/L BUN 39 H (7-17) mg/dL Creatinine 2.95 H (0.52-1.04) mg/dL Glucose 112 H (74-99) mg/dL AST 43 H (14-36) U/L C-Reactive Protein 49.4 H (<10.0) mg/L Total Protein (6.3-8.2) g/dL Albumin 3.3 L (3.5-5.0) g/dL 03/21/19 Range/Units 07:24 RBC (3.80-5.40) m/uL Hgb (11.4-16.0) gm/dL Hct (34.0-46.0) % MCHC (31.0-37.0) g/dL RDW (11.5-15.5) % Lymphocytes # (1.0-4.8) k/uL PT (9.0-12.0) sec INR (<1.2) Chloride 112 H (98-107) mmol/L Carbon Dioxide 21 L (22-30) mmol/L BUN 41 H (7-17) mg/dL Creatinine 2.89 H (0.52-1.04) mg/dL Glucose 107 H (74-99) mg/dL AST (14-36) U/L C-Reactive Protein (<10.0) mg/L Total Protein 5.4 L (6.3-8.2) g/dL Albumin 2.6 L (3.5-5.0) g/dL Microbiology - Last 24 Hours (Table) 03/18/19 15:42 Blood Culture - Preliminary Blood No Growth after 48 hours Assessment and Plan Assessment: #1 Mental status changes, cause is not entirely clear, may be related to infection and low-grade fever and acute kidney injury. computed tomography scan done in the emergency room reviewed, will consult neurology for further evaluation. Ammonia level less than 9. Per neurology services of mental status likely related to acute delirium probably related to infection acute renal insufficiency and anemia. Vitamin B1 and B12 and folate levels have been ordered #2. Acute kidney injury. Creatinine 2.98 and bun 40. Nephrology services are following. Patient's home medications of lisinopril, potassium chloride and Lasix currently on hold. #3 Recent right lower extremity above-knee amputation with infection at the surgical site continue IV antibiotic, patient is maintained on cefepime and vancomycin, obtain a blood cultures, consult infectious disease, consult vascular surgery for follow-up. Patient maintained on IV antibiotics. Infectious disease followin. Urine culture ordered #4 underlying history of hypertension, well-controlled on current medications continue. 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 current INR 2.9. Bridging Lovenox has been DC'd. 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 GI prophylaxis Protonix Neurology, nephrology, infectious disease and vascular surgery following Patient maintained on daptomycin and Maxipime for IV antibiotics. Continue normal saline at 100 Blood and urine culture has been ordered I performed an examination of the patient and discussed their management with the Nurse Practitioner. I have reviewed the Nurse Practitioner's notes and agree with the documented findings and plan of care
--- NOTE | 2019-03-21 12:20 | P.PN ---
Subjective Progress Note Date: 03/21/19 Patient offers no new complaints. Patient is laying comfortably in the bed. Appears more alert and awake and cognitively intact. Patient knows the exact reason why she came to the hospital. Objective - Vital Signs Vital signs: Vital Signs Temp 98.6 F 03/21/19 04:07 Pulse 84 03/21/19 04:07 Resp 18 03/21/19 04:07 BP 116/60 03/21/19 04:07 Pulse Ox 94 L 03/21/19 04:07 Intake & Output 03/20/19 03/21/19 03/21/19 18:59 06:59 18:59 Intake Total 1040 2880 Balance 1040 2880 Weight 120 kg Intake: Intake, IV Titration 1040 1560 Amount Sodium Chloride 0.9% 1, 1040 1560 000 ml @ 130 mls/hr IV . Q7H42M [facility] Rx#:[id number] Oral 1320 Other: Voiding Method Bedpan Bedpan Diaper Diaper Incontinent Incontinent # Voids 3 # Bowel Movements 0 - Exam Patient knows that she is in [facility] in the month and year. Speech and language functions are normal. Exam is nonfocal. - Labs CBC & Chem 7: 03/21/19 07:24 03/21/19 07:24 Labs: Abnormal Lab Results - Last 24 Hours (Table) 03/21/19 03/21/19 03/21/19 Range/Units 07:24 07:24 07:24 RBC 2.54 L (3.80-5.40) m/uL Hgb 7.3 L (11.4-16.0) gm/dL Hct 24.1 L (34.0-46.0) % MCHC 30.1 L (31.0-37.0) g/dL RDW 16.1 H (11.5-15.5) % Lymphocytes # 0.9 L (1.0-4.8) k/uL PT 34.3 H (9.0-12.0) sec INR 3.6 H (<1.2) Chloride 112 H (98-107) mmol/L Carbon Dioxide 21 L (22-30) mmol/L BUN 41 H (7-17) mg/dL Creatinine 2.89 H (0.52-1.04) mg/dL Glucose 107 H (74-99) mg/dL Total Protein 5.4 L (6.3-8.2) g/dL Albumin 2.6 L (3.5-5.0) g/dL Microbiology - Last 24 Hours (Table) 03/18/19 15:42 Blood Culture - Preliminary Blood No Growth after 48 hours Assessment and Plan Assessment: * Altered mental status, likely related to acute delirium. This is probably related to infection, acute renal insufficiency and anemia. Rule out vitamin B1, B12 or folate deficiency. * History of right above-knee amputation * Cellulitis * Obesity Plan: * Infectious disease and nephrology following. Hopefully her mentation will improve, once her infection and kidney functions comes under control. * Await results of B12, folate, thiamine and B6 levels. TSH is normal. * We will follow clinically.
--- NOTE | 2019-03-21 15:56 | PN ---
PROGRESS NOTE Patient is seen for followup for acute kidney injury, most likely underlying chronic kidney disease. Patient's creatinine has been staying at about 2.9 mg/dL. She is incontinent. Patient has had abdominal imaging previously. However, I do not see any recent ultrasounds or CT scans. I will proceed with an ultrasound of the abdomen. Patient had a PICC line placed yesterday. She will be maintained on long-term antibiotics for history of right knee infection post arthroplasty with subsequent right above-knee amputation. Currently patient is maintained on daptomycin. She is on IV fluids as well. PHYSICAL EXAMINATION: On examination today, patient is comfortable, not in any acute distress. Blood pressure is 116/60, heart rate 84 per minute. She is afebrile. EXAMINATION OF THE HEART: S1 and S2. EXAMINATION OF LUNGS: Bilateral breath sounds are heard. ABDOMEN: Soft, obese, non-tender. Examination of lower extremities shows right AKA. Trace edema noted, left lower extremity. LABS: Labs show hemoglobin 7.3, sodium 140, potassium 4.4, chloride 112. CO2 is 21, BUN 41, creatinine 2.89. ASSESSMENT: 1. Acute kidney injury, most likely acute tubular necrosis from recent hospitalization and use of prolonged antibiotics. Currently not on significantly nephrotoxic medications. Patient is maintained on daptomycin. I will check an ultrasound of the kidneys to rule out underlying obstructive uropathy. UA shows trace protein and moderate blood. Renal function is fairly stable last 3-4 days this admission. We need to obtain previous labs from another facility to assess patient's renal function over the last couple of months. I will continue with the IV fluids. Definitely the renal failure is exacerbated by the anemia. Blood pressure is on the lower side. Currently not on any significant antihypertensive medications. Toprol is at 25 mg. 2. History of right knee infection status post arthroplasty and subsequent right above- knee amputation at an outside facility. 3. History of pulmonary embolism. 4. Anemia. Iron studies not done recently. We will obtain iron profile and add Aranesp. PLAN: Check iron studies. Check ultrasound of the kidneys. Continue to avoid nephrotoxic agents. May continue with daptomycin. Increase oral intake. We will also try to obtain previous labs from her recent hospitalization at an outside facility for baseline renal function. MMODL / IJN: [id number] /
--- NOTE | 2019-03-21 16:34 | PN ---
PROGRESS NOTE DATE OF SERVICE: 03/21/2019 REASON FOR FOLLOWUP: Right AKA stump infected wound. INTERVAL HISTORY: The patient is currently afebrile. The patient has been breathing comfortably. The patient denies having any chest pain or any cough. No abdominal pain or any worsening pain in the right AKA stump area. PHYSICAL EXAMINATION: Blood pressure 115/60 with a pulse of 84, temperature 98.6. She is 94% on room air. General description is an elderly female lying in bed in no distress. RESPIRATORY SYSTEM: Unlabored breathing. Clear to auscultation anteriorly. HEART: S1, S2. Regular rate and rhythm. ABDOMEN: Soft. No tenderness. Right AKA stump is currently dressed up. No obvious drainage on the dressing. No surrounding swelling or redness. LABS: Hemoglobin is 7.3, white count 8.1. BUN of 41, creatinine 2.89. DIAGNOSTIC IMPRESSION AND PLAN: Patient with right above-knee amputation stump wound in this patient who did have extensive debridement at [facility], currently on cefepime and daptomycin; to continue. Local care to continue with wet-to-dry dressing changes and monitor clinical course closely. MMODL / IJN: [id number] /
[2019-03-21] MEDS ORDERED: WARFARIN 0.5 MG TAB PO ONE (18:00)
[2019-03-21] MEDS: diphenhydrAMINE 25 MG CAP PO PRN (21:06)
[2019-03-21 23:26] LABS: % Iron Saturation 6.08 (12.00-45.00)
[2019-03-21] MEDS: DAPTOmycin 500 MG in SODIUM CHLORIDE 0.9% 50 ML IVPB SCH (23:51)
[2019-03-22] MEDS: CEFEPIME 1 GM in SODIUM CHLORIDE 0.9% 50 ML IVPB SCH (05:47)
[2019-03-22 08:04] LABS: Anisocytosis Slight; Basophils % (A) 0 %; Eosinophils # (A) 0.2 k/uL (0-0.7); Eosinophils % (A) 3 %; HCT 22.3 % (34.0-46.0); Hypochromasia Marked; Lymphocytes # (A) 0.8 k/uL (1.0-4.8); Lymphocytes % (A) 11 %; MCH 29.1 pg (25.0-35.0); MCV 94.1 fL (80.0-100.0); Mean Platelet Volume 8.1; Monocytes # (A) 0.4 k/uL (0-1.0); Monocytes % (A) 6 %; Neutrophils # (A) 5.5 k/uL (1.3-7.7); Neutrophils % (A) 79 %; Platelet Count 309 k/uL (150-450); RBC 2.37 m/uL (3.80-5.40); RDW 16.4 % (11.5-15.5)
[2019-03-22 08:20] LABS: INR 3.1 (<1.2); Prothrombin Time 29.8 sec (9.0-12.0)
[2019-03-22 08:23] LABS: Albumin 2.7 g/dL (3.5-5.0); Calcium 9.2 mg/dL (8.4-10.2); Potassium 4.9 mmol/L (3.5-5.1); Total Bilirubin 0.5 mg/dL (0.2-1.3); Total Protein 5.6 g/dL (6.3-8.2)
[2019-03-22 08:29] LABS: HGB 6.9 gm/dL (11.4-16.0)
[2019-03-22] MEDS: ISOSORBIDE MONONITRATE ER 30 MG TAB.ER.24H PO SCH (10:19)
[2019-03-22] MEDS: ASPIRIN 325 MG TAB PO SCH (10:19)
[2019-03-22] MEDS: LORazepam 0.5 MG TAB PO SCH ×2 (10:20→16:44)
[2019-03-22] MEDS: SENNOSIDES-DOCUSATE SODIUM 1 EACH TAB PO SCH ×2 (10:20→20:26)
[2019-03-22] MEDS: MULTIVITAMINS, THERA 1 EACH TAB PO SCH (10:20)
[2019-03-22] MEDS: PARoxetine 10 MG TAB PO SCH ×2 (10:20→20:25)
[2019-03-22] MEDS: PANTOPRAZOLE 40 MG/10 ML VIAL IV SCH (10:20)
[2019-03-22] MEDS: METOPROLOL SUCCINATE (ER) 25 MG TAB.ER.24H PO SCH (10:20)
[2019-03-22] MEDS: SODIUM CHLORIDE 0.9% 1,000 ML IV SCH ×2 (10:38→17:21)
[2019-03-22] MEDS: CALCIUM CARB-VIT D 500MG-200UN 1 EACH TAB PO SCH ×2 (10:38→17:20)
--- NOTE | 2019-03-22 11:54 | US ---
EXAMINATION TYPE: US kidneys/renal and bladder DATE OF EXAM: 03/22/2019 COMPARISON: US CLINICAL HISTORY: RF. EXAM MEASUREMENTS: Right Kidney: 10.7 x 4.4 x 5.9 cm Left Kidney:12.3 x 5.1 x 4.7 cm Technically difficult study performed portably on morbidly obese patient. Right Kidney: Limited visualization of lower pole otherwise not hydro or masses seen. Left Kidney: No hydronephrosis or masses seen Bladder: wnl Bilateral Jets seen: no There is no evidence for hydronephrosis at this point in time. No nephrolithiasis is seen. No anaid s are identified. The urinary bladder is anechoic. Bilateral ureteral jets are seen. IMPRESSION: Limited evaluation. No distinct abnormality is seen.
[2019-03-22] MEDS ORDERED: DARBEPOETIN ALFA 60 MCG/0.3 ML SYRINGE SQ SCH (12:00)
[2019-03-22] MEDS: Acetaminophen-Codeine 300-30mg TAB PO PRN ×2 (14:29→20:25)
--- NOTE | 2019-03-22 14:36 | PN ---
PROGRESS NOTE The patient is seen for followup for acute kidney injury. Renal function fairly stable, creatinine staying at 2.8. The patient has had good urine output. Hemoglobin was down to 6.9 today. PHYSICAL EXAMINATION: One examination this morning blood pressure 108/56, heart rate 89 per minute, patient had a temperature of 100.4 yesterday. Examination of the heart S1, S2. Examination of the lungs, bilateral breath sounds are heard. Abdomen is soft, nontender, obese. Examination of lower extremities shows right AKA. Trace edema left leg. LAB: Show sodium 139, potassium 4.9, chloride 111, BUN 45, creatinine 2.86, hemoglobin 6.9 g/dL. ASSESSMENT: 1. Acute kidney injury, acute tubular necrosis. Renal function staying stable. I believe this acute kidney injury has occurred after her hospitalization over the last couple of months. Previous creatinine was 0.8 in October. The patient was hospitalized at another facility for infection, antibiotics and right AKA. Ultrasound of the kidneys will be ordered. Continue to encourage increased oral intake. 2. Right knee infection status post arthroplasty and subsequent right above knee amputation, maintained on IV antibiotics. 3. History of pulmonary embolism. 4. Anemia, no active bleeding noted, maintained on Aranesp. PLAN: Check ultrasound of the kidneys. Continue with the Aranesp. The patient may need packed RBCs transfusion for hemoglobin of 6.8 today. MMODL / IJN: [id number] /
--- NOTE | 2019-03-22 15:53 | P.PN ---
Subjective Progress Note Date: 03/22/19 Patient offers no new complaints. Patient is laying comfortably in the bed. Appears more alert and awake and cognitively intact. Patient knows the exact reason why she came to the hospital. Spoke to the nurse, who feels patient is close to baseline. It was felt patient's altered mentation was possibly related to Ativan. Objective - Vital Signs Vital signs: Vital Signs Temp 97.8 F 03/22/19 11:42 Pulse 82 03/22/19 11:42 Resp 18 03/22/19 11:42 BP 128/63 03/22/19 11:42 Pulse Ox 96 03/22/19 11:42 Intake & Output 03/21/19 03/22/19 03/22/19 18:59 06:59 18:59 Intake Total 1000 1890 240 Balance 1000 1890 240 Weight 120 kg Intake: Intake, IV Titration 1000 Amount Sodium Chloride 0.9% 1, 1000 000 ml @ 130 mls/hr IV . Q7H42M [facility] Rx#:[id number] Oral 1890 240 Other: Voiding Method Bedpan Bedpan Bedpan Diaper Diaper Diaper Incontinent Incontinent Incontinent # Voids 3 3 - Exam Patient knows that she is in [facility] in [facility] in the name of the [facility]. She knows it is AnanthFebruary 2019. Speech and language functions are normal. Exam is nonfocal. - Labs CBC & Chem 7: 03/22/19 07:36 03/22/19 07:36 Labs: Abnormal Lab Results - Last 24 Hours (Table) 03/20/19 03/22/19 03/22/19 Range/Units 08:05 07:36 07:36 RBC 2.37 L (3.80-5.40) m/uL Hgb 6.9 L* (11.4-16.0) gm/dL Hct 22.3 L (34.0-46.0) % RDW 16.4 H (11.5-15.5) % Lymphocytes # 0.8 L (1.0-4.8) k/uL PT (9.0-12.0) sec INR (<1.2) Chloride 111 H (98-107) mmol/L Carbon Dioxide 21 L (22-30) mmol/L BUN 45 H (7-17) mg/dL Creatinine 2.86 H (0.52-1.04) mg/dL Iron 16 L (50-170) ug/dL % Saturation 6.08 L (12.00-45.00) Total Protein 5.6 L (6.3-8.2) g/dL Albumin 2.7 L (3.5-5.0) g/dL Crossmatch 03/22/19 03/22/19 Range/Units 07:36 14:00 RBC (3.80-5.40) m/uL Hgb (11.4-16.0) gm/dL Hct (34.0-46.0) % RDW (11.5-15.5) % Lymphocytes # (1.0-4.8) k/uL PT 29.8 H (9.0-12.0) sec INR 3.1 H (<1.2) Chloride (98-107) mmol/L Carbon Dioxide (22-30) mmol/L BUN (7-17) mg/dL Creatinine (0.52-1.04) mg/dL Iron (50-170) ug/dL % Saturation (12.00-45.00) Total Protein (6.3-8.2) g/dL Albumin (3.5-5.0) g/dL Crossmatch See Detail Microbiology - Last 24 Hours (Table) 03/18/19 15:42 Blood Culture - Preliminary Blood No Growth after 72 hours Assessment and Plan Assessment: * Altered mental status, likely related to acute delirium. This is probably related to infection, acute renal insufficiency and anemia. Rule out vitamin B1, B12 or folate deficiency. * History of right above-knee amputation * Cellulitis * Obesity Plan: * Patient's delirium has resolved, and her mentation is almost back to baseline. * Infectious disease and nephrology following. * B12 523, folate 17.0 normal, TSH 1.75, hemoglobin A1c 5.6. Vitamin B6 and vitamin B1 level pending. * Patient's mentation is back to baseline. Neurology will sign off.
[2019-03-22] MEDS ORDERED: WARFARIN 1 MG TAB PO ONE (18:00)
--- NOTE | 2019-03-22 19:59 | P.PN ---
Subjective Progress Note Date: 03/22/19 Maria Teresa Celeste is a 73-year-old female well known to my practice with prolonged past medical history, who was recently admitted to [facility] on the [place] longterm, she was receiving IV antibiotic via PICC line. Patient was confused and agitated she had significant mental status changes she pulled out her PICC line. [facility] was attempting to replace PICC line, however patient was getting more confused and agitated and she was having low-grade fever of 100.4 decision was made to proceed with sending patient to emergency room for evaluation. 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 On 03/20/2019 patient is currently resting comfortably in bed. Patient does appear less confused than yesterday but still confused at times. Patient's creatinine elevated at 2.95 and bun 39. Nephrology services are following. INR today 2.9. Bridging Lovenox has been DC'd. Patient remains on IV antibiotics. Infectious disease, neurology, nephrology and vascular surgery following. At this time patient denies chest pain. Patient denies shortness of breath. Patient denies nausea vomiting or diarrhea On 03/21/2019 patient is currently resting comfortably in bed eating breakfast. Patient seems confused than yesterday. Patient was evaluated by neurology services altered mental status changes likely secondary to infection and acute kidney injury per neurology. Creatinine slightly improved today 2.89 and bun 41. Nephrology, infectious disease, neurology and vascular surgery following. This time patient denies chest pain or shortness breath. Patient denies nausea vomiting or diarrhea. Patient denies any urinary burning and frequency Objective - Vital Signs Vital signs: Vital Signs Temp 97.8 F 03/22/19 11:42 Pulse 82 03/22/19 16:00 Resp 18 03/22/19 16:00 BP 128/63 03/22/19 11:42 Pulse Ox 96 03/22/19 11:42 Intake & Output 03/22/19 03/22/19 03/23/19 06:59 18:59 06:59 Intake Total 1890 240 Balance 1890 240 Intake: Oral 1890 240 Other: Voiding Method Bedpan Bedpan Diaper Diaper Incontinent Incontinent # Voids 3 1 # Bowel Movements 1 - Exam in general patient is alert and oriented in no apparent distress HEENT head normocephalic and atraumatic Neck is supple no JVD no goiter no lymphadenopathy Chest exam reveals a few scattered crackles no wheezing Cardiac exam reveals regular heart sounds S1 and S2 no gallops no murmurs Abdomen is soft nontender no organomegaly with normal bowel sounds Extremity there is above-knee amputation on the right there is mild swelling on the left, I was unable to examine surgical site due to patient agitation Neurological examination patient is alert and oriented 3 no focal neurological deficit patient is moving all 4 extremities spontaneously no facial drooping speech is paranoid but fluent - Labs CBC & Chem 7: 03/22/19 07:36 03/22/19 07:36 Labs: Abnormal Lab Results - Last 24 Hours (Table) 03/20/19 03/22/19 03/22/19 Range/Units 08:05 07:36 07:36 RBC 2.37 L (3.80-5.40) m/uL Hgb 6.9 L* (11.4-16.0) gm/dL Hct 22.3 L (34.0-46.0) % RDW 16.4 H (11.5-15.5) % Lymphocytes # 0.8 L (1.0-4.8) k/uL PT (9.0-12.0) sec INR (<1.2) Chloride 111 H (98-107) mmol/L Carbon Dioxide 21 L (22-30) mmol/L BUN 45 H (7-17) mg/dL Creatinine 2.86 H (0.52-1.04) mg/dL Iron 16 L (50-170) ug/dL % Saturation 6.08 L (12.00-45.00) Total Protein 5.6 L (6.3-8.2) g/dL Albumin 2.7 L (3.5-5.0) g/dL Crossmatch 03/22/19 03/22/19 03/22/19 Range/Units 07:36 14:00 15:15 RBC (3.80-5.40) m/uL Hgb (11.4-16.0) gm/dL Hct (34.0-46.0) % RDW (11.5-15.5) % Lymphocytes # (1.0-4.8) k/uL PT 29.8 H (9.0-12.0) sec INR 3.1 H (<1.2) Chloride (98-107) mmol/L Carbon Dioxide (22-30) mmol/L BUN (7-17) mg/dL Creatinine (0.52-1.04) mg/dL Iron (50-170) ug/dL % Saturation (12.00-45.00) Total Protein (6.3-8.2) g/dL Albumin (3.5-5.0) g/dL Crossmatch See Detail See Detail Microbiology - Last 24 Hours (Table) 03/18/19 15:42 Blood Culture - Preliminary Blood No Growth after 96 hours Assessment and Plan Plan: #1 Mental status changes, cause is not entirely clear, may be related to infection and low-grade fever and acute kidney injury. computed tomography scan done in the emergency room reviewed, will consult neurology for further evaluation. Ammonia level less than 9. Per neurology services of mental status likely related to acute delirium probably related to infection acute renal in sufficiency and anemia. Vitamin B1 and B12 and folate levels have been ordered #2. Acute kidney injury. Creatinine 2.98 and bun 40. Nephrology services are following. Patient's home medications of lisinopril, potassium chloride and Lasix currently on hold. #3 Recent right lower extremity above-knee amputation with infection at the surgical site continue IV antibiotic, patient is maintained on cefepime and vancomycin, obtain a blood cultures, consult infectious disease, consult vascular surgery for follow-up. Patient maintained on IV antibiotics. Infectious disease followin. Urine culture ordered #4 underlying history of hypertension, well-controlled on current medications continue. 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 current INR 2.9. Bridging Lovenox has been DC'd. 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 GI prophylaxis Protonix Neurology, nephrology, infectious disease and vascular surgery following Patient maintained on daptomycin and Maxipime for IV antibiotics. Continue normal saline at 100 Blood and urine culture has been ordered
--- NOTE | 2019-03-22 20:56 | PN ---
PROGRESS NOTE DATE OF SERVICE: 03/22/2019. REASON FOR FOLLOWUP: Right AKA stump wound with secondary cellulitis. INTERVAL HISTORY: The patient did have a low-grade fever of 100.4 last night. However, the patient is afebrile. The patient is breathing comfortably. No chest pain. No cough. Still complaining of pain to the right AKA stump. No worsening. No nausea, vomiting, or any diarrhea reported. PHYSICAL EXAMINATION: Blood pressure 108/56, pulse of 89, temperature 98.8. She is 100% on room air. General description is an elderly female lying in bed in no distress. Respiratory system: Unlabored breathing. Clear to auscultation anteriorly. Heart S1, S2. Regular rate and rhythm. ABDOMEN: Soft, no tenderness. Right AKA stump wound with minimal slough tissue, surrounding swelling, but no redness or any drainage. LABS: Hemoglobin is 6.8, white count 7.0. BUN of 45, creatinine is 2.86. DIAGNOSTIC IMPRESSION AND PLAN: Patient with a right above knee amputation stump wound after surgical debridement of his skin necrosis with concern for secondary cellulitis. The patient is currently covered with cefepime and Daptomycin to continue monitoring clinical course closely. Continue local care with wet-to-dry dressing changes. MMODL / IJN: [id number] / MONTY
[2019-03-23] MEDS: Acetaminophen-Codeine 300-30mg TAB PO PRN ×3 (03:39→18:35)
[2019-03-23] MEDS: SODIUM CHLORIDE 0.9% 1,000 ML IV SCH ×4 (03:40→20:31)
[2019-03-23] MEDS: CEFEPIME 1 GM in SODIUM CHLORIDE 0.9% 50 ML IVPB SCH (05:56)
[2019-03-23 09:26] LABS: Anisocytosis Slight; Basophils # (A) 0.1 k/uL (0-0.2); Basophils % (A) 1 %; Eosinophils # (A) 0.2 k/uL (0-0.7); Eosinophils % (A) 4 %; HCT 20.4 % (34.0-46.0); Hypochromasia Marked; Lymphocytes # (A) 0.5 k/uL (1.0-4.8); Lymphocytes % (A) 9 %; MCH 28.8 pg (25.0-35.0); MCHC 30.6 g/dL (31.0-37.0); MCV 94.2 fL (80.0-100.0); Mean Platelet Volume 7.9; Monocytes # (A) 0.4 k/uL (0-1.0); Monocytes % (A) 7 %; Neutrophils # (A) 4.5 k/uL (1.3-7.7); Neutrophils % (A) 76 %; Platelet Count 313 k/uL (150-450); RBC 2.16 m/uL (3.80-5.40); RDW 16.4 % (11.5-15.5); WBC 5.9 k/uL (3.8-10.6)
[2019-03-23 09:31] LABS: Albumin 2.4 g/dL (3.5-5.0); Calcium 8.9 mg/dL (8.4-10.2); INR 2.6 (<1.2); Potassium 5.2 mmol/L (3.5-5.1); Prothrombin Time 24.7 sec (9.0-12.0); Total Bilirubin 0.4 mg/dL (0.2-1.3); Total Protein 5.1 g/dL (6.3-8.2)
[2019-03-23 09:36] LABS: HGB 6.2 gm/dL (11.4-16.0)
[2019-03-23] MEDS: LORazepam 0.5 MG TAB PO SCH ×2 (09:55→18:24)
[2019-03-23] MEDS: ISOSORBIDE MONONITRATE ER 30 MG TAB.ER.24H PO SCH (09:56)
[2019-03-23] MEDS: SENNOSIDES-DOCUSATE SODIUM 1 EACH TAB PO SCH ×2 (09:56→20:30)
[2019-03-23] MEDS: PARoxetine 10 MG TAB PO SCH ×2 (09:56→20:30)
[2019-03-23] MEDS: METOPROLOL SUCCINATE (ER) 25 MG TAB.ER.24H PO SCH (09:56)
[2019-03-23] MEDS: MULTIVITAMINS, THERA 1 EACH TAB PO SCH (09:57)
[2019-03-23] MEDS: PANTOPRAZOLE 40 MG/10 ML VIAL IV SCH (09:57)
[2019-03-23] MEDS: ASPIRIN 325 MG TAB PO SCH (09:57)
[2019-03-23] MEDS: CALCIUM CARB-VIT D 500MG-200UN 1 EACH TAB PO SCH ×2 (09:57→18:35)
[2019-03-23 10:51] LABS: Poikilocytosis (M) Present; Polychromasia Present
--- NOTE | 2019-03-23 10:52 | P.PN ---
Subjective Progress Note Date: 03/23/19 Maria Teresa Celeste is a 73-year-old female well known to my practice with prolonged past medical history, who was recently admitted to [facility] on the [facility] home, she was receiving IV antibiotic via PICC line. Patient was confused and agitated she had significant mental status changes she pulled out her PICC line. [facility] was attempting to replace PICC line, however patient was getting more confused and agitated and she was having low-grade fever of 100.4 decision was made to proceed with sending patient to emergency room for evaluation. 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 On 03/20/2019 patient is currently resting comfortably in bed. Patient does appear less confused than yesterday but still confused at times. Patient's creatinine elevated at 2.95 and bun 39. Nephrology services are following. INR today 2.9. Bridging Lovenox has been DC'd. Patient remains on IV antibiotics. Infectious disease, neurology, nephrology and vascular surgery following. At this time patient denies chest pain. Patient denies shortness of breath. Patient denies nausea vomiting or diarrhea On 03/21/2019 patient is currently resting comfortably in bed eating breakfast. Patient seems confused than yesterday. Patient was evaluated by neurology services altered mental status changes likely secondary to infection and acute kidney injury per neurology. Creatinine slightly improved today 2.89 and bun 41. Nephrology, infectious disease, neurology and vascular surgery following. This time patient denies chest pain or shortness breath. Patient denies nausea vomiting or diarrhea. Patient denies any urinary burning and frequency On 03/23/2019 patient is currently resting comfortably in bed. Mentation has significantly improved. Neurology services have signed off. Creatinine 2.37 and bun 37. 1 unit of blood has been ordered or patient but due to antibodies patient was unable to receive until this morning. Per nursing staff per Dr. Carr will discuss case with Dr. Fischer. Dr. Fischer has been consulted. Patient denies chest pain or shortness of breath. Patient denies nausea vomiting or diarrhea. Patient denies any urinary burning or frequency. Per nursing staffof bleeding at surgical site or any other signs of blood loss Objective - Vital Signs Vital signs: Vital Signs Temp 98 F 03/23/19 05:00 Pulse 89 03/23/19 05:00 Resp 18 03/23/19 05:00 BP 118/56 03/23/19 05:00 Pulse Ox 96 03/23/19 07:39 Intake & Output 03/22/19 03/23/19 03/23/19 18:59 06:59 18:59 Intake Total 240 1495 Balance 240 1495 Intake: Intake, IV Titration 1495 Amount Sodium Chloride 0.9% 1, 1495 000 ml @ 130 mls/hr IV . [id number] [facility] Rx#:[id number] Oral 240 Other: Voiding Method Bedpan Bedpan Diaper Diaper Incontinent Incontinent # Voids 1 2 # Bowel Movements 1 - Exam in general patient is alert confused, slightly agitated in no apparent distress, is in the room during exam HEENT head normocephalic and atraumatic Neck is supple no JVD no goiter no lymphadenopathy Chest exam reveals a few scattered crackles no wheezing Cardiac exam reveals regular heart sounds S1 and S2 no gallops no murmurs Abdomen is soft nontender no organomegaly with normal bowel sounds Extremity there is above-knee amputation on the right there is mild swelling on the left, I was unable to examine surgical site due to patient agitation Neurological examination patient is alert and oriented 3 no focal neurological deficit patient is moving all 4 extremities spontaneously no facial drooping speech is paranoid but fluent - Labs CBC & Chem 7: 03/23/19 08:24 03/23/19 08:24 Labs: Abnormal Lab Results - Last 24 Hours (Table) 03/22/19 03/22/19 03/23/19 Range/Units 14:00 15:15 08:24 RBC 2.16 L (3.80-5.40) m/uL Hgb 6.2 L* (11.4-16.0) gm/dL Hct 20.4 L (34.0-46.0) % MCHC 30.6 L (31.0-37.0) g/dL RDW 16.4 H (11.5-15.5) % PT (9.0-12.0) sec INR (<1.2) Potassium (3.5-5.1) mmol/L Chloride (98-107) mmol/L Carbon Dioxide (22-30) mmol/L BUN (7-17) mg/dL Creatinine (0.52-1.04) mg/dL Total Protein (6.3-8.2) g/dL Albumin (3.5-5.0) g/dL Crossmatch See Detail See Detail 03/23/19 03/23/19 Range/Units 08:24 08:24 RBC (3.80-5.40) m/uL Hgb (11.4-16.0) gm/dL Hct (34.0-46.0) % MCHC (31.0-37.0) g/dL RDW (11.5-15.5) % PT 24.7 H (9.0-12.0) sec INR 2.6 H (<1.2) Potassium 5.2 H (3.5-5.1) mmol/L Chloride 113 H (98-107) mmol/L Carbon Dioxide 19 L (22-30) mmol/L BUN 37 H (7-17) mg/dL Creatinine 2.37 H (0.52-1.04) mg/dL Total Protein 5.1 L (6.3-8.2) g/dL Albumin 2.4 L (3.5-5.0) g/dL Crossmatch Microbiology - Last 24 Hours (Table) 03/21/19 14:45 Urine Culture - Preliminary Urine,Voided 03/18/19 15:42 Blood Culture - Preliminary Blood No Growth after 96 hours Assessment and Plan Assessment: #1 Mental status changes, cause is not entirely clear, may be related to infection and low-grade fever and acute kidney injury. computed tomography scan done in the emergency room reviewed, will consult neurology for further evaluation. Ammonia level less than 9. Per neurology services of mental status likely related to acute delirium probably related to infection acute renal insufficiency and anemia. Vitamin B1 and B12 and folate levels have been ordered. Patient has returned to baseline with mental status. Neurology services have signed off #2. Acute kidney injury. Creatinine 2.98 and bun 40. Nephrology services are following. Patient's home medications of lisinopril, potassium chloride and Lasix currently on hold. Kidney enzymes are improving. Ultrasound kidneys renal bladder ordered per nephrology completed showing no distinct abnormality. #3 Recent right lower extremity above-knee amputation with infection at the surgical site continue IV antibiotic, patient is maintained on cefepime and vancomycin, obtain a blood cultures, consult infectious disease, consult vascular surgery for follow-up. Patient maintained on IV antibiotics. Infectious disease following. Urine culture ordered. Blood culture showing no growth #4 underlying history of hypertension, well-controlled on current medications continue. 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 current INR 2.9. Bridging Lovenox has been DC'd. Pharmacy to dose Coumadin. 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 Anemia with no active signs of bleeding. Patient maintained on Aranesp per nephrology. 1 unit PRBCs has been ordered hemoglobin 6.2. DVT prophylaxis Coumadin. GI prophylaxis Protonix Neurology, nephrology, infectious disease and vascular surgery following Patient maintained on daptomycin and Maxipime for IV antibiotics. Blood and urine culture has been ordered 1 unit PRBCs I performed an examination of the patient and discussed their management with the Nurse Practitioner. I have reviewed the Nurse Practitioner's notes and agree with the documented findings and plan of care
--- NOTE | 2019-03-23 14:08 | CDI ---
Documentation Clarification Form Date: 03/23/2019 01:44:47 PM From: Jazz Gregory RN CCDS Admit Date: 03/18/2019 07:07:00 PM Patient Name: Maria Teresa Celeste Visit Number: [id number] Discharge Date: ATTENTION: The Clinical Documentation Specialists (CDI) and [facility] Coding Staff appreciate your assistance in clarifying documentation. Please respond to the clarification below the line at the bottom and electronically sign. The CDI & [facility] Coding staff will review the response and follow-up if needed. Please note: Queries are made part of the Legal Health Record. If you have any questions, please contact the author of this message via ITS. Dr. Gage Gasteulm Mental status changes, Cause is not entirely clear, maybe related to infection and low-grade fever and acute kidney injury. History/Risk Factors: 73-year-old female presents [facility] the ED from [facility] for confusion and pulling out PICC line. Medical History Above the Knee amputation with infection; HTN; Clinical Indicators: Labs: 03/18 Cr 2.91; Calcium 10.7; Wbc 8.0; UA Leukocyte Esterase small; bacteria rare; CT Brain; no acute brain abnormality. Age related changes of atrophy and possible chronic small vessel ischemia. Treatment: 03/18 03/19 Cefepime ivpb Q 24/hr; Daptomycin ivpb Q 48Hr; 03/18 0.9ns 1L bolus followed by 130cchr In your professional opinion, please clarify the etiology of the Altered Mental Status, if known. * Acute Metabolic Encephalopathy due to infection and acute kidney injury * Acute Metabolic Encephalopathy (please specify ) * Other condition (please specify) * Unable to determine (Last Revision: June 2017) acute metoblic encephalopathy due to infection and acute kidney injury MTDD
[2019-03-23] MEDS ORDERED: WARFARIN 2 MG TAB PO ONE (18:00)
--- NOTE | 2019-03-23 18:08 | PN ---
PROGRESS NOTE Patient is seen for followup for acute kidney injury. Her renal function has been stable, with creatinine staying at about 2.8. However, today it is down to 2.3. Patient is maintained on IV fluids. She is maintained on daptomycin for her knee infection. PHYSICAL EXAMINATION: On examination this morning, blood pressure was 130/78, heart rate 78 per minute. Patient is afebrile. EXAMINATION OF THE HEART: S1 and S2. EXAMINATION OF LUNGS: Bilateral breath sounds are heard. ABDOMEN: Soft, non-tender. Examination of lower extremities shows right AKA. Trace edema noted, left lower extremity. SYSTEM ADMINISTRATION MANAGER exam grossly intact. LABS: Hemoglobin 6.2, white cell count 5.9, sodium 139, potassium 5.2, chloride 113. CO2 is 19, BUN 37, creatinine 2.37. ASSESSMENT: 1. Acute kidney injury, acute tubular necrosis, currently nonoliguric with perhaps a component of prerenal state. Renal function has improved slightly today. Definitely the significant anemia is also contributing to her acute kidney injury. I will decrease the IV fluids. Patient is encouraged to increase her oral intake. Repeat labs in a.m. 2. Anemia with severe iron deficiency noted. Patient has been started on Aranesp. I will add IV iron as well. PLAN: Decrease IV fluids. Add IV iron. Transfuse packed RBCs. Repeat labs in a.m. Continue to avoid nephrotoxic agents. MMODL / IJN: [id number] /
[2019-03-23] MEDS: diphenhydrAMINE 25 MG CAP PO PRN (21:08)
--- NOTE | 2019-03-23 22:38 | PN ---
PROGRESS NOTE DATE OF SERVICE: 03/23/2019 REASON FOR FOLLOWUP: Right AKA stump wound and cellulitis. INTERVAL HISTORY: The patient is currently afebrile. The patient has been breathing comfortably. Still complaining of pain to the right AKA stump, but no worsening. No chest pain. No cough. No abdominal pain or diarrhea. PHYSICAL EXAMINATION: Blood pressure 126/62 with a pulse of 81, temperature 98.4. She is 96% on room air. General description is an elderly female up in the bed in no distress. RESPIRATORY SYSTEM: Unlabored breathing. Clear to auscultation anteriorly. HEART: S1, S2. Regular rate and rhythm. ABDOMEN: Soft. No tenderness. Right AKA stump is currently dressed. LABS: Hemoglobin 6.2, white count 5.9 with a BUN of 37, creatinine 2.37. Blood cultures have been negative. Urine is so far pending. DIAGNOSTIC IMPRESSION AND PLAN: Patient admitted to hospital with a fever and mental status changes in this patient who did have a right above-knee amputation stump wound after debridement of the necrosis. The patient's cellulitis is currently controlled and the patient is covered with cefepime and daptomycin; to continue. Local wound care with wet-to-dry dressing changes. Keep the area off pressure and monitor clinical course closely. MMODL / IJN: [id number] /
[2019-03-23] MEDS: DAPTOmycin 500 MG in SODIUM CHLORIDE 0.9% 50 ML IVPB SCH (23:05)
[2019-03-24] MEDS: CEFEPIME 1 GM in SODIUM CHLORIDE 0.9% 50 ML IVPB SCH (06:11)
[2019-03-24] MEDS: Acetaminophen-Codeine 300-30mg TAB PO PRN ×2 (06:15→15:23)
[2019-03-24 09:20] LABS: Anisocytosis Slight; Basophils % (A) 1 %; Eosinophils # (A) 0.3 k/uL (0-0.7); Eosinophils % (A) 5 %; HCT 24.3 % (34.0-46.0); HGB 7.4 gm/dL (11.4-16.0); Hypochromasia Marked; Lymphocytes # (A) 0.6 k/uL (1.0-4.8); Lymphocytes % (A) 10 %; MCH 28.6 pg (25.0-35.0); MCHC 30.6 g/dL (31.0-37.0); MCV 93.5 fL (80.0-100.0); Mean Platelet Volume 7.9; Monocytes # (A) 0.4 k/uL (0-1.0); Monocytes % (A) 6 %; Neutrophils # (A) 4.5 k/uL (1.3-7.7); Neutrophils % (A) 76 %; Platelet Count 330 k/uL (150-450); RDW 16.2 % (11.5-15.5); WBC 5.9 k/uL (3.8-10.6)
[2019-03-24 09:29] LABS: INR 2.8 (<1.2)
[2019-03-24] MEDS: LORazepam 0.5 MG TAB PO SCH ×2 (09:47→17:58)
[2019-03-24] MEDS: ASPIRIN 325 MG TAB PO SCH (09:51)
[2019-03-24] MEDS: ISOSORBIDE MONONITRATE ER 30 MG TAB.ER.24H PO SCH (09:51)
[2019-03-24] MEDS: METOPROLOL SUCCINATE (ER) 25 MG TAB.ER.24H PO SCH (09:51)
[2019-03-24] MEDS: ONDANSETRON 4 MG TAB PO PRN (09:51)
[2019-03-24] MEDS: CALCIUM CARB-VIT D 500MG-200UN 1 EACH TAB PO SCH ×2 (09:51→18:00)
[2019-03-24] MEDS: MULTIVITAMINS, THERA 1 EACH TAB PO SCH (09:52)
[2019-03-24] MEDS: PANTOPRAZOLE 40 MG TABLET PO SCH (09:52)
[2019-03-24] MEDS: SENNOSIDES-DOCUSATE SODIUM 1 EACH TAB PO SCH ×2 (09:52→21:01)
[2019-03-24] MEDS: PARoxetine 10 MG TAB PO SCH ×2 (09:53→21:01)
[2019-03-24 09:54] LABS: Albumin 2.7 g/dL (3.5-5.0); Calcium 9.1 mg/dL (8.4-10.2); Potassium 4.5 mmol/L (3.5-5.1); Total Bilirubin 0.5 mg/dL (0.2-1.3); Total Protein 5.5 g/dL (6.3-8.2)
[2019-03-24] MEDS: SODIUM CHLORIDE 0.9% 1,000 ML IV SCH ×2 (09:55)
[2019-03-24] MEDS: PYRIDOXINE 50 MG TAB PO SCH (10:41)
[2019-03-24] MEDS: SODIUM FERRIC GLUCONAT-SUCROSE 125 MG in SODIUM CHLORIDE 0.9% 100 ML IVPB SCH (10:42)
--- NOTE | 2019-03-24 11:24 | PN ---
PROGRESS NOTE Patient is seen for followup for acute kidney injury. She is currently maintained on IV fluids. Renal function has been slowly improving. Patient is being treated for infection in her right knee in, currently status post right AKA at another facility. She has had issues with anemia and was transfused packed RBCs yesterday and hemoglobin was 6.2 g/dL. No active bleeding noted and the hemoglobin today is at 7.4. PHYSICAL EXAMINATION: On examination today, blood pressure was 128/57, heart rate 90 per minute, patient is afebrile. Examination of the heart S1, S2. Examination of the lungs, bilateral breath sounds are heard. Abdomen is soft, non-tender. Examination of the lower extremities shows right AKA. Trace edema noted in the left lower extremity. MECHANICAL INTEGRITY ENGINEER exam grossly intact. LABS: Show sodium 140, potassium 4.5, chloride 111, BUN 31, creatinine 2.15. ASSESSMENT: 1. Acute kidney injury, acute tubular necrosis, currently slowly improving. Patient is maintained on IV fluids. she is encouraged to maintain good oral intake. No evidence of retention. No nephrotoxic agents on board. May continue with the Depakote. 2. History of right knee arthroplasty followed by infection, removal of hardware and subsequent right AKA at an outside facility, maintained on daptomycin. 3. History of urinary tract infection. Previous urine culture grew enterococcus which was VRE and Klebsiella. 4. Hypertension. 5. Anemia with no active bleeding noted. Maintained on IV iron. I also added Aranesp as patient's renal function has been weak, I believe for more than 1-2 months now. PLAN: Continue with IV fluids, continue to encourage increased oral intake. Repeat labs in a.m. Avoid nephrotoxic agents. MMODL / IJN: [id number] /
--- NOTE | 2019-03-24 11:37 | P.PN ---
Subjective Progress Note Date: 03/24/19 Maria Teresa Celeste is a 73-year-old female well known to my practice with prolonged past medical history, who was recently admitted to [facility] on the [facility] home, she was receiving IV antibiotic via PICC line. Patient was confused and agitated she had significant mental status changes she pulled out her PICC line. longterm was attempting to replace PICC line, however patient was getting more confused and agitated and she was having low-grade fever of 100.4 decision was made to proceed with sending patient to emergency room for evaluation. Patient has a history of right knee replacement complicated with infection she had multiple surgeries on her right knee, and ultimately she had above-knee amputation on the right, she developed infection at the amputation site and was transferred to [facility], she recently returned and was admitted to [facility] on the [place] for antibiotic management. On 03/20/2019 patient is currently resting comfortably in bed. Patient does appear less confused than yesterday but still confused at times. Patient's creatinine elevated at 2.95 and bun 39. Nephrology services are following. INR today 2.9. Bridging Lovenox has been DC'd. Patient remains on IV antibiotics. Infectious disease, neurology, nephrology and vascular surgery following. At this time patient denies chest pain. Patient denies shortness of breath. Patient denies nausea vomiting or diarrhea On 03/21/2019 patient is currently resting comfortably in bed eating breakfast. Patient seems confused than yesterday. Patient was evaluated by neurology services altered mental status changes likely secondary to infection and acute kidney injury per neurology. Creatinine slightly improved today 2.89 and bun 41. Nephrology, infectious disease, neurology and vascular surgery following. This time patient denies chest pain or shortness breath. Patient denies nausea vomiting or diarrhea. Patient denies any urinary burning and frequency On 03/23/2019 patient is currently resting comfortably in bed. Mentation has significantly improved. Neurology services have signed off. Creatinine 2.37 and bun 37. 1 unit of blood has been ordered or patient but due to antibodies patient was unable to receive until this morning. Per nursing staff per Dr. Carr will discuss case with Dr. Fischer. Dr. Fischer has been consulted. Patient denies chest pain or shortness of breath. Patient denies nausea vomiting or diarrhea. Patient denies any urinary burning or frequency. Per nursing staffof bleeding at surgical site or any other signs of blood loss On 03/24/2019 patient is resting comfortably in bed. Patient is alert and oriented 3. Per nursing staff Dr. Fischer is out of town. Did discuss case with Dr. Carr. Patient does not need surgical debridement he can follow-up as outpatient with Dr. Fischer per infectious disease. Patient remains on daptomycin and cefepime. Patient did receive 1 unit of PRBCs. Hemoglobin 7.4 today. Creatinine trending down to 2.15 and bun 31. At this time patient denies chest pain or shortness of breath patient denies nausea vomiting or diarrhea. Patient denies any urinary burning or frequency Objective - Vital Signs Vital signs: Vital Signs Temp 97.5 F L 03/24/19 05:00 Pulse 90 03/24/19 05:00 Resp 15 03/24/19 05:00 BP 128/57 03/24/19 05:00 Pulse Ox 96 03/24/19 05:00 Intake & Output 03/23/19 03/24/19 03/24/19 18:59 06:59 18:59 Intake Total 550 810 Balance 550 810 Intake: Intake, IV Titration 330 Amount DAPTOmycin 500 mg In 50 Sodium Chloride 0.9% 50 ml @ 100 mls/hr IVPB Q48H JORGE Rx#:[id number] Sodium Chloride 0.9% 1, 280 000 ml @ 70 mls/hr IV . [id number] JORGE Rx#:[id number] Oral 240 480 Blood Product 310 Rc Pheresis 2 As3 Unit 310 [id number] Other: Voiding Method Bedpan Bedpan Bedpan Diaper Diaper Diaper Incontinent Incontinent Incontinent # Voids 3 1 # Bowel Movements 1 - Exam in general patient is alert confused, slightly agitated in no apparent distress, is in the room during exam HEENT head normocephalic and atraumatic Neck is supple no JVD no goiter no lymphadenopathy Chest exam reveals a few scattered crackles no wheezing Cardiac exam reveals regular heart sounds S1 and S2 no gallops no murmurs Abdomen is soft nontender no organomegaly with normal bowel sounds Extremity there is above-knee amputation on the right there is mild swelling on the left, I was unable to examine surgical site due to patient agitation Neurological examination patient is alert and oriented 3 no focal neurological deficit patient is moving all 4 extremities spontaneously no facial drooping speech is paranoid but fluent - Labs CBC & Chem 7: 03/24/19 08:53 03/24/19 08:53 Labs: Abnormal Lab Results - Last 24 Hours (Table) 03/21/19 03/22/19 03/24/19 Range/Units 07:24 15:15 08:53 RBC (3.80-5.40) m/uL Hgb (11.4-16.0) gm/dL Hct (34.0-46.0) % MCHC (31.0-37.0) g/dL RDW (11.5-15.5) % Lymphocytes # (1.0-4.8) k/uL PT 27.0 H (9.0-12.0) sec INR 2.8 H (<1.2) Chloride (98-107) mmol/L BUN (7-17) mg/dL Creatinine (0.52-1.04) mg/dL Glucose (74-99) mg/dL Total Protein (6.3-8.2) g/dL Albumin (3.5-5.0) g/dL Vitamin B6 3 L (5-50) ug/L Crossmatch See Detail 03/24/19 03/24/19 Range/Units 08:53 08:53 RBC 2.60 L (3.80-5.40) m/uL Hgb 7.4 L (11.4-16.0) gm/dL Hct 24.3 L (34.0-46.0) % MCHC 30.6 L (31.0-37.0) g/dL RDW 16.2 H (11.5-15.5) % Lymphocytes # 0.6 L (1.0-4.8) k/uL PT (9.0-12.0) sec INR (<1.2) Chloride 111 H (98-107) mmol/L BUN 31 H (7-17) mg/dL Creatinine 2.15 H (0.52-1.04) mg/dL Glucose 144 H (74-99) mg/dL Total Protein 5.5 L (6.3-8.2) g/dL Albumin 2.7 L (3.5-5.0) g/dL Vitamin B6 (5-50) ug/L Crossmatch Microbiology - Last 24 Hours (Table) 03/18/19 15:42 Blood Culture - Preliminary Blood No Growth after 120 hours Assessment and Plan Assessment: #1 Mental status changes, cause is not entirely clear, may be related to infection and low-grade fever and acute kidney injury. computed tomography scan done in the emergency room reviewed, will consult neurology for further evaluation. Ammonia level less than 9. Per neurology services of mental status likely related to acute delirium probably related to infection acute renal insufficiency and anemia. Vitamin B1 and B12 and folate levels have been ordered. Patient has returned to baseline with mental status. Neurology services have signed off #2. Acute kidney injury. Creatinine 2.98 and bun 40. Nephrology services are following. Patient's home medications of lisinopril, potassium chloride and L asix currently on hold. Kidney enzymes are improving. Ultrasound kidneys renal bladder ordered per nephrology completed showing no distinct abnormality. Creatinine trending down #3 Recent right lower extremity above-knee amputation with infection at the surgical site continue IV antibiotic, patient is maintained on cefepime and vancomycin, obtain a blood cultures, consult infectious disease, consult vascular surgery for follow-up. Patient maintained on IV antibiotics. Infectious disease following. Urine culture ordered. Blood culture showing no growth. Per infectious disease, Dr. Fischer [place] out [place] country patient does not require debridement at this time to follow-up outpatient patient to be maintained on IV antibiotics daptomycin and cefepime #4 underlying history of hypertension, well-controlled on current medications continue. 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 current INR 2.9. Bridging Lovenox has been DC'd. Pharmacy to dose Coumadin. 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 Anemia with no active signs of bleeding. Patient maintained on Aranesp per nephrology. 1 unit PRBCs has been ordered hemoglobin 6.2. Hemoglobin 7.4 DVT prophylaxis Coumadin. GI prophylaxis Protonix Neurology services have cleared patient Vascular surgery unavailable Infectious disease and nephrology services are following Patient maintained on daptomycin and Maxipime for IV antibiotics. Blood and urine culture has been ordered when medically cleared patient will return to [facility] with IV antibiotics and follow-up outpatient with Dr. Fischer I performed an examination of the patient and discussed their management with the Nurse Practitioner. I have reviewed the Nurse Practitioner's notes and agree with the documented findings and plan of care
--- NOTE | 2019-03-24 12:48 | IR ---
EXAMINATION TYPE: IR cvc insert >=5 years DATE OF EXAM: 03/21/2019 COMPARISON: NONE CLINICAL HISTORY: Infection Needs long-term intravenous access for antibiotics. PROCEDURE: After informed consent, the skin overlying the right brachial vein was localized with ultrasound and noted to be compressible and patent. An ultrasound image was obtained and submitted on the patient's chart. The overlying skin was prepped and draped and Lidocaine was used for local anesthesia. A sk in rayna was made with a scalpel. Access was gained to the vein under ultrasound guidance with a 21 g auge needle and a 0.018 inch wire was advanced. Access site was dilated with Peel-Away sheath and ca theter tailored to the appropriate length and advanced such that the distal tip is at the cavoatrial junction. Spot image was obtained verifying placement. Catheter was fixed to the skin and a sterile dressing was placed following hemostasis. Catheter was aspirated and flushed with saline. Patient was discharged in stable condition without complication.Maximal barrier technique is utilized. Ultra sound image is documented on the chart. Ultrasound used with sterile technique. Fluoro time and fluoroscopic images submitted to document procedure: 9 intraoperative C-arm images do cument the procedure. 0.2 mins. fluoro time IMPRESSION: STATUS POST ULTRASOUND AND FLUOROSCOPIC GUIDED PICC LINE PLACEMENT, READY FOR USE. THIS PROCEDURE WAS PERFORMED BY THE UNDERSIGNED.
[2019-03-24] MEDS ORDERED: WARFARIN 2 MG TAB PO ONE (18:00)
--- NOTE | 2019-03-24 18:42 | P.CON ---
Consult Note - . Consult date: 03/24/19 Assessment/Plan:: Patient is a 73-year-old female who was evaluated in reference to status post right BKA performed at [facility] in [place] for a septic knee. The procedure was performed approximately 2 months ago to the patient's recollection . She is not seen her operative surgeon since her discharge from the hospital. She is currently admitted for wound issues. Currently the patient denies any chills or fevers. My evaluation revealed a 73-year-old female who appeared her stated age who is alert cooperative no apparent distress. Patient is afebrile vital signs are stable. The right below the knee wound is open. Generally healthy granular tissue is noted throughout with a few areas of necrotic fat. There is no suggestion of undrained abscess or other issue. Recommendation: I believe application of a wound VAC would be quite helpful in getting this wound into a better position for complete healing. I have taken the liberty of ordering a wound VAC. I would recommend the patient be followed by her operative surgeon in the near future for ongoing care in this regard. Thank you for allowing me to participate in the care of your patient. I trust this consultation is useful to you.
--- NOTE | 2019-03-24 19:08 | P.PN ---
Subjective Progress Note Date: 03/24/19 Patient offers no new complaints. Patient is laying comfortably in the bed. Very alert and awake and cognitively intact. Spoke to the nurse, who feels patient is close to baseline. It was felt patient's altered mentation was possibly related to Ativan. Objective - Vital Signs Vital signs: Vital Signs Temp 97.8 F 03/24/19 13:25 Pulse 83 03/24/19 13:25 Resp 17 03/24/19 13:25 BP 126/67 03/24/19 13:25 Pulse Ox 98 03/24/19 13:25 Intake & Output 03/24/19 03/24/19 03/25/19 06:59 18:59 06:59 Intake Total 810 Balance 810 Intake: Intake, IV Titration 330 Amount DAPTOmycin 500 mg In 50 Sodium Chloride 0.9% 50 ml @ 100 mls/hr IVPB Q48H JORGE Rx#:[id number] Sodium Chloride 0.9% 1, 280 000 ml @ 70 mls/hr IV . [id number] JORGE Rx#:[id number] Oral 480 Other: Voiding Method Bedpan Bedpan Diaper Diaper Incontinent Incontinent # Voids 1 5 - Exam Patient knows that she is in [facility] in [facility] in the name of the [facility]. She knows it is LaverneFebruary 2019. Speech and language functions are normal. Exam is nonfocal. - Labs CBC & Chem 7: 03/24/19 08:53 03/24/19 08:53 Labs: Abnormal Lab Results - Last 24 Hours (Table) 03/24/19 03/24/19 03/24/19 Range/Units 08:53 08:53 08:53 RBC 2.60 L (3.80-5.40) m/uL Hgb 7.4 L (11.4-16.0) gm/dL Hct 24.3 L (34.0-46.0) % MCHC 30.6 L (31.0-37.0) g/dL RDW 16.2 H (11.5-15.5) % Lymphocytes # 0.6 L (1.0-4.8) k/uL PT 27.0 H (9.0-12.0) sec INR 2.8 H (<1.2) Chloride 111 H (98-107) mmol/L BUN 31 H (7-17) mg/dL Creatinine 2.15 H (0.52-1.04) mg/dL Glucose 144 H (74-99) mg/dL Total Protein 5.5 L (6.3-8.2) g/dL Albumin 2.7 L (3.5-5.0) g/dL Microbiology - Last 24 Hours (Table) 03/18/19 15:42 Blood Culture - Preliminary Blood No Growth after 120 hours Assessment and Plan Assessment: * Altered mental status, likely related to acute delirium. This is probably related to infection, acute renal insufficiency and anemia. Rule out vitamin B1, B12 or folate deficiency. * History of right above-knee amputation * Vitamin B6 deficiency. * Cellulitis * Obesity Plan: * Patient's delirium has resolved, and her mentation is almost back to baseline. * Infectious disease and nephrology following. * B12 523, folate 17.0 normal, TSH 1.75, hemoglobin A1c 5.6. Vitamin B6 level is low 3. vitamin B1 level 77 normal. We will start B6 replacement. * Patient's mentation is back to baseline. Neurology will sign off.
[2019-03-24] MEDS: diphenhydrAMINE 25 MG CAP PO PRN (21:05)
--- NOTE | 2019-03-24 22:23 | PN ---
PROGRESS NOTE DATE OF SERVICE: 03/24/2019 REASON FOR FOLLOWUP: Right AKA stump wound with secondary cellulitis. INTERVAL HISTORY: The patient is currently afebrile. The patient has been breathing comfortably. Denies having any chest pain or any cough. No abdominal pain or any worsening pain to the right AKA stump. PHYSICAL EXAMINATION: Blood pressure is 135/71 with a pulse of 91, temperature 98.2. She is 96% on room air. General description is an elderly female lying in bed in no distress. RESPIRATORY SYSTEM: Unlabored breathing. Clear to auscultation anteriorly. HEART: S1, S2. Regular rate and rhythm. ABDOMEN: Soft. No tenderness. Right AKA stump is currently dressed. No drainage on the dressing. LABS: Hemoglobin 7.4, white count 5.9, BUN of 31, creatinine is 2.15. DIAGNOSTIC IMPRESSION AND PLAN: Patient with a right above-knee amputation stump wound with secondary cellulitis. The patient is currently covered with daptomycin and cefepime; to continue. Local wound care with wet-to-dry dressing. Keep the area off pressure. Continue with supportive care. MMODL / IJN: [id number] /
[2019-03-25] MEDS: Acetaminophen-Codeine 300-30mg TAB PO PRN ×3 (01:53→20:16)
[2019-03-25] MEDS: CEFEPIME 1 GM in SODIUM CHLORIDE 0.9% 50 ML IVPB SCH (06:05)
[2019-03-25 07:57] LABS: Anisocytosis Slight; Basophils # (A) 0.1 k/uL (0-0.2); Basophils % (A) 1 %; Eosinophils # (A) 0.4 k/uL (0-0.7); Eosinophils % (A) 6 %; HCT 25.1 % (34.0-46.0); HGB 7.8 gm/dL (11.4-16.0); Hypochromasia Moderate; Lymphocytes # (A) 0.8 k/uL (1.0-4.8); Lymphocytes % (A) 14 %; MCH 28.8 pg (25.0-35.0); MCHC 30.9 g/dL (31.0-37.0); MCV 93.4 fL (80.0-100.0); Mean Platelet Volume 7.6; Monocytes # (A) 0.4 k/uL (0-1.0); Monocytes % (A) 7 %; Neutrophils # (A) 4.2 k/uL (1.3-7.7); Neutrophils % (A) 70 %; Platelet Count 359 k/uL (150-450); RBC 2.69 m/uL (3.80-5.40); RDW 16.2 % (11.5-15.5)
[2019-03-25 08:15] LABS: INR 3.1 (<1.2); Prothrombin Time 30.3 sec (9.0-12.0)
[2019-03-25 08:35] LABS: Calcium 9.5 mg/dL (8.4-10.2); Potassium 4.6 mmol/L (3.5-5.1); Total Bilirubin 0.5 mg/dL (0.2-1.3); Total Protein 6.1 g/dL (6.3-8.2)
--- NOTE | 2019-03-25 08:40 | P.PN ---
Subjective Patient is seen in follow-up for acute kidney injury. Renal function is improving. Oral intake is fair. Denies chest pain or shortness of breath. Urine output has been good. Hemoglobin up to 7.4. No active bleeding. Vital signs are stable. General: The patient appeared well nourished and normally developed. HEENT: Head exam is unremarkable. Neck is without jugular venous distension. LUNGS: Lungs are clear to auscultation and percussion. Breath sounds decreased. HEART: Rate and Rhythm are regular. First and second heart sounds normal. No murmurs, rubs or gallops. ABDOMEN: Abdominal exam reveals normal bowel sounds. Non-tender and non- distended. No evidence of peritonitis. EXTREMITITES: No clubbing, cyanosis, or edema. Right AKA noted. Objective - Vital Signs Vital signs: Vital Signs Temp 98.3 F 03/25/19 05:00 Pulse 93 03/25/19 05:00 Resp 18 03/25/19 05:00 BP 129/67 03/25/19 05:00 Pulse Ox 94 L 03/25/19 05:00 Intake & Output 03/24/19 03/25/19 03/25/19 18:59 06:59 18:59 Other: Voiding Method Bedpan Bedpan Diaper Diaper Incontinent Incontinent # Voids 5 5 - Labs CBC & Chem 7: 03/25/19 07:36 03/25/19 07:36 Labs: Abnormal Lab Results - Last 24 Hours (Table) 03/24/19 03/24/19 03/24/19 Range/Units 08:53 08:53 08:53 RBC 2.60 L (3.80-5.40) m/uL Hgb 7.4 L (11.4-16.0) gm/dL Hct 24.3 L (34.0-46.0) % MCHC 30.6 L (31.0-37.0) g/dL RDW 16.2 H (11.5-15.5) % Lymphocytes # 0.6 L (1.0-4.8) k/uL PT 27.0 H (9.0-12.0) sec INR 2.8 H (<1.2) Chloride 111 H (98-107) mmol/L BUN 31 H (7-17) mg/dL Creatinine 2.15 H (0.52-1.04) mg/dL Glucose 144 H (74-99) mg/dL Total Protein 5.5 L (6.3-8.2) g/dL Albumin 2.7 L (3.5-5.0) g/dL 03/25/19 03/25/19 03/25/19 Range/Units 07:36 07:36 07:36 RBC 2.69 L (3.80-5.40) m/uL Hgb 7.8 L (11.4-16.0) gm/dL Hct 25.1 L (34.0-46.0) % MCHC 30.9 L (31.0-37.0) g/dL RDW 16.2 H (11.5-15.5) % Lymphocytes # 0.8 L (1.0-4.8) k/uL PT 30.3 H (9.0-12.0) sec INR 3.1 H (<1.2) Chloride 111 H (98-107) mmol/L BUN 25 H (7-17) mg/dL Creatinine 1.94 H (0.52-1.04) mg/dL Glucose (74-99) mg/dL Total Protein 6.1 L (6.3-8.2) g/dL Albumin 3.0 L (3.5-5.0) g/dL Microbiology - Last 24 Hours (Table) 03/21/19 14:45 Urine Culture - Final Urine,Voided Matilda albicans 03/18/19 15:42 Blood Culture - Final Blood No Growth after 144 hours Assessment and Plan Plan: Assessment: 1. Acute kidney injury secondary to ATN secondary to acute blood loss anemia. Improving. Creatinine 1.94 today. 2. Acute blood loss anemia status post blood transfusion. Hemoglobin 7.8 today. Iron deficiency noted. Also on Aranesp. 3. Right knee infection status post [id number] amputation. Plan: Maintain IV iron. Continue normal saline at 70 mL an hour. Encourage oral intake. Continue to monitor renal function and urine output. Patient will need to follow-up outpatient in the next 2 weeks.
[2019-03-25] MEDS: SENNOSIDES-DOCUSATE SODIUM 1 EACH TAB PO SCH ×3 (09:20→20:20)
[2019-03-25] MEDS: METOPROLOL SUCCINATE (ER) 25 MG TAB.ER.24H PO SCH (09:20)
[2019-03-25] MEDS: ASPIRIN 325 MG TAB PO SCH (09:20)
[2019-03-25] MEDS: ISOSORBIDE MONONITRATE ER 30 MG TAB.ER.24H PO SCH (09:21)
[2019-03-25] MEDS: SODIUM CHLORIDE 0.9% 1,000 ML IV SCH ×2 (09:21→22:02)
[2019-03-25] MEDS: PANTOPRAZOLE 40 MG TABLET PO SCH (09:21)
[2019-03-25] MEDS: CALCIUM CARB-VIT D 500MG-200UN 1 EACH TAB PO SCH ×2 (09:21→17:16)
[2019-03-25] MEDS: MULTIVITAMINS, THERA 1 EACH TAB PO SCH (09:21)
[2019-03-25] MEDS: PARoxetine 10 MG TAB PO SCH ×2 (09:24→20:18)
[2019-03-25] MEDS: SODIUM FERRIC GLUCONAT-SUCROSE 125 MG in SODIUM CHLORIDE 0.9% 100 ML IVPB SCH (09:25)
[2019-03-25] MEDS: PYRIDOXINE 50 MG TAB PO SCH (09:25)
--- NOTE | 2019-03-25 16:35 | P.PN ---
Subjective Progress Note Date: 03/25/19 Maria Teresa Celeste is a 73-year-old female well known to my practice with prolonged past medical history, who was recently admitted to [facility] on the [facility] home, she was receiving IV antibiotic via PICC line. Patient was confused and agitated she had significant mental status changes she pulled out her PICC line. halfway was attempting to replace PICC line, however patient was getting more confused and agitated and she was having low-grade fever of 100.4 decision was made to proceed with sending patient to emergency room for evaluation. Patient has a history of right knee replacement complicated with infection she had multiple surgeries on her right knee, and ultimately she had above-knee amputation on the right, she developed infection at the amputation site and was transferred to [facility], she recently returned and was admitted to [facility] on [facility] for antibiotic management. On 03/20/2019 patient is currently resting comfortably in bed. Patient does appear less confused than yesterday but still confused at times. Patient's creatinine elevated at 2.95 and bun 39. Nephrology services are following. INR today 2.9. Bridging Lovenox has been DC'd. Patient remains on IV antibiotics. Infectious disease, neurology, nephrology and vascular surgery following. At this time patient denies chest pain. Patient denies shortness of breath. Patient denies nausea vomiting or diarrhea On 03/21/2019 patient is currently resting comfortably in bed eating breakfast. Patient seems confused than yesterday. Patient was evaluated by neurology services altered mental status changes likely secondary to infection and acute kidney injury per neurology. Creatinine slightly improved today 2.89 and bun 41. Nephrology, infectious disease, neurology and vascular surgery following. This time patient denies chest pain or shortness breath. Patient denies nausea vomiting or diarrhea. Patient denies any urinary burning and frequency On 03/22/2019 patient is currently resting comfortably in bed eating breakfast. Patient seems confused than yesterday. Patient was evaluated by neurology services altered mental status changes likely secondary to infection and acute kidney injury per neurology. Creatinine slightly improved today 2.89 and bun 41. Nephrology, infectious disease, neurology and vascular surgery following. This time patient denies chest pain or shortness breath. Patient denies nausea vomiting or diarrhea. Patient denies any urinary burning and frequency On 03/23/2019 patient is currently resting comfortably in bed. Mentation has significantly improved. Neurology services have signed off. Creatinine 2.37 and bun 37. 1 unit of blood has been ordered or patient but due to antibodies patient was unable to receive until this morning. Per nursing staff per Dr. Carr will discuss case with Dr. Fischer. Dr. Fischer has been consulted. Patient denies chest pain or shortness of breath. Patient denies nausea vomiting or diarrhea. Patient denies any urinary burning or frequency. Per nursing staffof bleeding at surgical site or any other signs of blood loss On 03/24/2019 patient is resting comfortably in bed. Patient is alert and oriented 3. Per nursing staff Dr. Fischer is out of town. Did discuss case with Dr. Carr. Patient does not need surgical debridement he can follow-up as outpatient with Dr. Fischer per infectious disease. Patient remains on daptomycin and cefepime. Patient did receive 1 unit of PRBCs. Hemoglobin 7.4 today. Creatinine trending down to 2.15 and bun 31. At this time patient denies chest pain or shortness of breath patient denies nausea vomiting or diarrhea. Patient denies any urinary burning or frequency 03/25/2019 patient was seen and examined on the medical floor she is alert and oriented 3 in no apparent distress she is complaining of pain in the right lower extremity otherwise she denies any complaints there is no fever or chills no headache or dizziness no chest pain no shortness of breath no cough no abdominal pain no nausea or vomiting no diarrhea no burning was urination no frequency or urgency and no hematuria Objective - Vital Signs Vital signs: Vital Signs Temp 99.3 F 03/25/19 12:00 Pulse 83 03/25/19 15:02 Resp 17 03/25/19 15:02 BP 136/66 03/25/19 12:00 Pulse Ox 95 03/25/19 12:00 Intake & Output 03/24/19 03/25/19 03/25/19 18:59 06:59 18:59 Intake Total 360 Balance 360 Intake: Oral 360 Other: Voiding Method Bedpan Bedpan Bedpan Diaper Diaper Diaper Incontinent Incontinent Incontinent # Voids 5 5 2 - Exam in general patient is alert and oriented in no apparent distress HEENT head normocephalic and atraumatic Neck is supple no JVD no goiter no lymphadenopathy Chest exam reveals a few scattered crackles no wheezing Cardiac exam reveals regular heart sounds S1 and S2 no gallops no murmurs Abdomen is soft nontender no organomegaly with normal bowel sounds Extremity there is above-knee amputation on the right there is mild swelling on the left, I was unable to examine surgical site due to patient agitation Neurological examination patient is alert and oriented 3 no focal neurological deficit patient is moving all 4 extremities spontaneously no facial drooping speech is paranoid but fluent - Labs CBC & Chem 7: 03/25/19 07:36 03/25/19 07:36 Labs: Abnormal Lab Results - Last 24 Hours (Table) 03/25/19 03/25/19 03/25/19 Range/Units 07:36 07:36 07:36 RBC 2.69 L (3.80-5.40) m/uL Hgb 7.8 L (11.4-16.0) gm/dL Hct 25.1 L (34.0-46.0) % MCHC 30.9 L (31.0-37.0) g/dL RDW 16.2 H (11.5-15.5) % Lymphocytes # 0.8 L (1.0-4.8) k/uL PT 30.3 H (9.0-12.0) sec INR 3.1 H (<1.2) Chloride 111 H (98-107) mmol/L BUN 25 H (7-17) mg/dL Creatinine 1.94 H (0.52-1.04) mg/dL Total Protein 6.1 L (6.3-8.2) g/dL Albumin 3.0 L (3.5-5.0) g/dL Microbiology - Last 24 Hours (Table) 03/21/19 14:45 Urine Culture - Final Urine,Voided Matilda albicans 03/18/19 15:42 Blood Culture - Final Blood No Growth after 144 hours Assessment and Plan Plan: #1 Mental status changes, resolved . cause is not entirely clear, may be related to infection and low-grade fever and acute kidney injury. computed tomography scan done in the emergency room reviewed, will consult neurology for further evaluation. Ammonia level less than 9. Per neurology services of mental status likely related to acute delirium probably related to infection acute renal insufficiency and anemia. Vitamin B1 and B12 and folate levels have been ordered. Patient has returned to baseline with mental status. Neurology services have signed off #2. Acute kidney injury. Creatinine 2.98 and bun 40. Nephrology services are following. Patient's home medications of lisinopril, potassium chloride and Lasix currently on hold. Kidney enzymes are improving. Ultrasound kidneys renal bladder ordered per nephrology completed showing no distinct abnormality. Creatinine trending down #3 Recent right lower extremity above-knee amputation with infection at the surgical site continue IV antibiotic, patient is maintained on cefepime and vancomycin, obtain a blood cultures, consult infectious disease, consult vascular surgery for follow-up. Patient maintained on IV antibiotics. Infectious disease following. Urine culture ordered. Blood culture showing no growth. Per infectious disease, Dr. Fischer [place] patient does not require debridement at this time to follow-up outpatient patient to be maintained on IV antibiotics daptomycin and cefepime #4 underlying history of hypertension, well-controlled on current medications continue. 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 current INR 2.9. Bridging Lovenox has been DC'd. Pharmacy to dose Coumadin. 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 Anemia with no active signs of bleeding. Patient maintained on Aranesp per nephrology. 1 unit PRBCs has been ordered hemoglobin 6.2. Hemoglobin 7.4 DVT prophylaxis Coumadin. GI prophylaxis Protonix Neurology services have cleared patient Vascular surgery unavailable Infectious disease and nephrology services are following Patient maintained on daptomycin and Maxipime for IV antibiotics. Blood and urine culture has been ordered when medically cleared [facility] and follow-up outpatient with Dr. Fischer
[2019-03-25] MEDS ORDERED: WARFARIN 1 MG TAB PO ONE (18:00)
[2019-03-25] MEDS: DAPTOmycin 500 MG in SODIUM CHLORIDE 0.9% 50 ML IVPB SCH (22:02)
--- NOTE | 2019-03-25 23:16 | PN ---
PROGRESS NOTE DATE OF SERVICE: 03/25/2019 REASON FOR FOLLOWUP: Right AK stump wound. INTERVAL HISTORY: The patient is currently afebrile. The patient has been breathing comfortably. Denies having any chest pain or cough. No nausea, vomiting. No abdominal pain or any worsening pain to the right AK stump area. PHYSICAL EXAMINATION: Blood pressure 136/66, pulse of 83, temperature 99.3, she is 95% on room air. General description is an elderly female lying in bed in no distress. Respiratory system: Unlabored breathing. Clear to auscultation anteriorly. Heart S1, S2. Regular rate and rhythm. Abdomen: Soft. Extremities: Right AK stump wound is currently packed with drainage on dressing. LABS: Hemoglobin 7.1, white count 6.0, BUN of 25, creatinine 1.94. DIAGNOSTIC IMPRESSION AND PLAN: Patient with right AK stump wound from the extensive debridement of the skin necrosis at [facility]. The patient is currently covered with daptomycin. Continue local wound care with wet-to-dry dressing and continue supportive care. MMODL / IJN: [id number] /
[2019-03-26] MEDS: Acetaminophen-Codeine 300-30mg TAB PO PRN ×2 (01:51→21:44)
[2019-03-26] MEDS: CEFEPIME 1 GM in SODIUM CHLORIDE 0.9% 50 ML IVPB SCH (05:11)
[2019-03-26 07:32] LABS: Anisocytosis Slight; Basophils % (A) 0 %; Eosinophils # (A) 0.3 k/uL (0-0.7); Eosinophils % (A) 5 %; HCT 23.7 % (34.0-46.0); HGB 7.4 gm/dL (11.4-16.0); Hypochromasia Moderate; Lymphocytes # (A) 0.7 k/uL (1.0-4.8); Lymphocytes % (A) 10 %; MCH 28.8 pg (25.0-35.0); MCHC 31.2 g/dL (31.0-37.0); MCV 92.4 fL (80.0-100.0); Mean Platelet Volume 7.9; Monocytes # (A) 0.4 k/uL (0-1.0); Monocytes % (A) 6 %; Neutrophils # (A) 5.4 k/uL (1.3-7.7); Neutrophils % (A) 78 %; Platelet Count 375 k/uL (150-450); RBC 2.56 m/uL (3.80-5.40); RDW 16.2 % (11.5-15.5)
[2019-03-26 07:53] LABS: Albumin 2.8 g/dL (3.5-5.0); Calcium 9.1 mg/dL (8.4-10.2); Potassium 4.5 mmol/L (3.5-5.1); Total Bilirubin 0.6 mg/dL (0.2-1.3); Total Protein 5.9 g/dL (6.3-8.2)
[2019-03-26 07:54] LABS: INR 3.3 (<1.2); Prothrombin Time 31.3 sec (9.0-12.0)
[2019-03-26] MEDS: METOPROLOL SUCCINATE (ER) 25 MG TAB.ER.24H PO SCH (08:51)
[2019-03-26] MEDS: ASPIRIN 325 MG TAB PO SCH (08:51)
[2019-03-26] MEDS: PANTOPRAZOLE 40 MG TABLET PO SCH (08:51)
[2019-03-26] MEDS: MULTIVITAMINS, THERA 1 EACH TAB PO SCH (08:51)
[2019-03-26] MEDS: CALCIUM CARB-VIT D 500MG-200UN 1 EACH TAB PO SCH ×2 (08:51→15:49)
[2019-03-26] MEDS: ISOSORBIDE MONONITRATE ER 30 MG TAB.ER.24H PO SCH (08:51)
[2019-03-26] MEDS: SODIUM FERRIC GLUCONAT-SUCROSE 125 MG in SODIUM CHLORIDE 0.9% 100 ML IVPB SCH (08:52)
[2019-03-26] MEDS: SENNOSIDES-DOCUSATE SODIUM 1 EACH TAB PO SCH ×2 (08:52→21:31)
[2019-03-26] MEDS: PARoxetine 10 MG TAB PO SCH ×2 (08:52→21:31)
[2019-03-26] MEDS: PYRIDOXINE 50 MG TAB PO SCH (08:52)
--- NOTE | 2019-03-26 09:24 | P.PN ---
Subjective Patient is seen in follow-up for acute kidney injury. Renal function is improving. Oral intake is fair. Denies chest pain or shortness of breath. Urine output has been good. Hemoglobin 7.4 today. No active bleeding. Vital signs are stable. General: The patient appeared well nourished and normally developed. HEENT: Head exam is unremarkable. Neck is without jugular venous distension. LUNGS: Lungs are clear to auscultation and percussion. Breath sounds decreased. HEART: Rate and Rhythm are regular. First and second heart sounds normal. No murmurs, rubs or gallops. ABDOMEN: Abdominal exam reveals normal bowel sounds. Non-tender and non- distended. No evidence of peritonitis. EXTREMITITES: No clubbing, cyanosis, or edema. Right AKA noted. Objective - Vital Signs Vital signs: Vital Signs Temp 98.9 F 03/26/19 05:13 Pulse 91 03/26/19 08:25 Resp 18 03/26/19 08:25 BP 151/73 03/26/19 05:13 Pulse Ox 95 03/26/19 05:13 Intake & Output 03/25/19 03/26/19 03/26/19 18:59 06:59 18:59 Intake Total 360 590 Balance 360 590 Intake: IV 590 Cefepime 1 gm In Sodium 50 Chloride 0.9% 50 ml @ 100 mls/hr IVPB Q24H JORGE Rx# :[id number] DAPTOmycin 500 mg In 50 Sodium Chloride 0.9% 50 ml @ 100 mls/hr IVPB Q48H JORGE Rx#:[id number] Sodium Chloride 0.9% 1, 490 000 ml @ 70 mls/hr IV . [id number] JORGE Rx#:[id number] Oral 360 Other: Voiding Method Bedpan Bedpan Bedpan Diaper Diaper Diaper Incontinent Incontinent Incontinent # Voids 2 3 - Labs CBC & Chem 7: 03/26/19 07:00 03/26/19 07:00 Labs: Abnormal Lab Results - Last 24 Hours (Table) 03/26/19 03/26/19 03/26/19 Range/Units 07:00 07:00 07:00 RBC 2.56 L (3.80-5.40) m/uL Hgb 7.4 L (11.4-16.0) gm/dL Hct 23.7 L (34.0-46.0) % RDW 16.2 H (11.5-15.5) % Lymphocytes # 0.7 L (1.0-4.8) k/uL PT 31.3 H (9.0-12.0) sec INR 3.3 H (<1.2) Chloride 112 H (98-107) mmol/L Carbon Dioxide 21 L (22-30) mmol/L BUN 21 H (7-17) mg/dL Creatinine 1.69 H (0.52-1.04) mg/dL Total Protein 5.9 L (6.3-8.2) g/dL Albumin 2.8 L (3.5-5.0) g/dL Assessment and Plan Plan: Assessment: 1. Acute kidney injury secondary to ATN secondary to acute blood loss anemia. Improving. Creatinine 1.69 today. 2. Acute blood loss anemia status post blood transfusion. Hemoglobin 7.4 today. Iron deficiency noted. Also on Aranesp. 3. Right knee infection status post [id number] amputation. Plan: Maintain IV iron. Decrease normal saline to 50 mL an hour. Encourage oral intake. Continue to monitor renal function and urine output. Patient will need to follow-up outpatient in the next 2 weeks.
[2019-03-26] MEDS ORDERED: FUROSEMIDE 10 MG/ML 2 ML VIAL IV ONE (09:40)
--- NOTE | 2019-03-26 10:17 | P.PN ---
Subjective Progress Note Date: 03/26/19 Maria Teresa Celeste is a 73-year-old female well known to my practice with prolonged past medical history, who was recently admitted to [facility] on the [facility] home, she was receiving IV antibiotic via PICC line. Patient was confused and agitated she had significant mental status changes she pulled out her PICC line. snf was attempting to replace PICC line, however patient was getting more confused and agitated and she was having low-grade fever of 100.4 decision was made to proceed with sending patient to emergency room for evaluation. 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 On 03/20/2019 patient is currently resting comfortably in bed. Patient does appear less confused than yesterday but still confused at times. Patient's creatinine elevated at 2.95 and bun 39. Nephrology services are following. INR today 2.9. Bridging Lovenox has been DC'd. Patient remains on IV antibiotics. Infectious disease, neurology, nephrology and vascular surgery following. At this time patient denies chest pain. Patient denies shortness of breath. Patient denies nausea vomiting or diarrhea On 03/21/2019 patient is currently resting comfortably in bed eating breakfast. Patient seems confused than yesterday. Patient was evaluated by neurology services altered mental status changes likely secondary to infection and acute kidney injury per neurology. Creatinine slightly improved today 2.89 and bun 41. Nephrology, infectious disease, neurology and vascular surgery following. This time patient denies chest pain or shortness breath. Patient denies nausea vomiting or diarrhea. Patient denies any urinary burning and frequency On 03/22/2019 patient is currently resting comfortably in bed eating breakfast. Patient seems confused than yesterday. Patient was evaluated by neurology services altered mental status changes likely secondary to infection and acute kidney injury per neurology. Creatinine slightly improved today 2.89 and bun 41. Nephrology, infectious disease, neurology and vascular surgery following. This time patient denies chest pain or shortness breath. Patient denies nausea vomiting or diarrhea. Patient denies any urinary burning and frequency On 03/23/2019 patient is currently resting comfortably in bed. Mentation has significantly improved. Neurology services have signed off. Creatinine 2.37 and bun 37. 1 unit of blood has been ordered or patient but due to antibodies patient was unable to receive until this morning. Per nursing staff per Dr. Carr will discuss case with Dr. Fischer. Dr. Fischer has been consulted. Patient denies chest pain or shortness of breath. Patient denies nausea vomiting or diarrhea. Patient denies any urinary burning or frequency. Per nursing staffof bleeding at surgical site or any other signs of blood loss On 03/24/2019 patient is resting comfortably in bed. Patient is alert and oriented 3. Per nursing staff Dr. Fischer is out of town. Did discuss case with Dr. Carr. Patient does not need surgical debridement he can follow-up as outpatient with Dr. Fischer per infectious disease. Patient remains on daptomycin and cefepime. Patient did receive 1 unit of PRBCs. Hemoglobin 7.4 today. Creatinine trending down to 2.15 and bun 31. At this time patient denies chest pain or shortness of breath patient denies nausea vomiting or diarrhea. Patient denies any urinary burning or frequency 03/25/2019 patient was seen and examined on the medical floor she is alert and oriented 3 in no apparent distress she is complaining of pain in the right lower extremity otherwise she denies any complaints there is no fever or chills no headache or dizziness no chest pain no shortness of breath no cough no abdominal pain no nausea or vomiting no diarrhea no burning was urination no frequency or urgency and no hematuria On 03/26/2019 patient is alert and oriented 3 in no apparent distress, she states that she is feeling depressed, she is having some pain in her right lower extremity she is complaining of shortness of breath otherwise she denies any complaints there is no fever or chills no headache or dizziness no cough no nausea or vomiting no abdominal pain no diarrhea no burning was urination no frequency or urgency and no hematuria. Objective - Vital Signs Vital signs: Vital Signs Temp 98.9 F 03/26/19 05:13 Pulse 91 03/26/19 05:13 Resp 18 03/26/19 05:13 BP 151/73 03/26/19 05:13 Pulse Ox 95 03/26/19 05:13 Intake & Output 03/25/19 03/26/19 03/26/19 18:59 06:59 18:59 Intake Total 360 590 Balance 360 590 Intake: IV 590 Cefepime 1 gm In Sodium 50 Chloride 0.9% 50 ml @ 100 mls/hr IVPB Q24H JORGE Rx# :[id number] DAPTOmycin 500 mg In 50 Sodium Chloride 0.9% 50 ml @ 100 mls/hr IVPB Q48H JORGE Rx#:[id number] Sodium Chloride 0.9% 1, 490 000 ml @ 70 mls/hr IV . [id number] JORGE Rx#:[id number] Oral 360 Other: Voiding Method Bedpan Bedpan Diaper Diaper Incontinent Incontinent # Voids 2 3 - Exam in general patient is alert and oriented in no apparent distress HEENT head normocephalic and atraumatic Neck is supple no JVD no goiter no lymphadenopathy Chest exam reveals a few scattered crackles no wheezing Cardiac exam reveals regular heart sounds S1 and S2 no gallops no murmurs Abdomen is soft nontender no organomegaly with normal bowel sounds Extremity there is above-knee amputation on the right there is mild swelling on the left, I was unable to examine surgical site due to patient agitation Neurological examination patient is alert and oriented 3 no focal neurological deficit patient is moving all 4 extremities spontaneously no facial drooping speech is paranoid but fluent - Labs CBC & Chem 7: 03/26/19 07:00 03/26/19 07:00 Labs: Abnormal Lab Results - Last 24 Hours (Table) 03/25/19 03/25/19 03/25/19 Range/Units 07:36 07:36 07:36 RBC 2.69 L (3.80-5.40) m/uL Hgb 7.8 L (11.4-16.0) gm/dL Hct 25.1 L (34.0-46.0) % MCHC 30.9 L (31.0-37.0) g/dL RDW 16.2 H (11.5-15.5) % Lymphocytes # 0.8 L (1.0-4.8) k/uL PT 30.3 H (9.0-12.0) sec INR 3.1 H (<1.2) Chloride 111 H (98-107) mmol/L BUN 25 H (7-17) mg/dL Creatinine 1.94 H (0.52-1.04) mg/dL Total Protein 6.1 L (6.3-8.2) g/dL Albumin 3.0 L (3.5-5.0) g/dL 03/26/19 Range/Units 07:00 RBC 2.56 L (3.80-5.40) m/uL Hgb 7.4 L (11.4-16.0) gm/dL Hct 23.7 L (34.0-46.0) % MCHC (31.0-37.0) g/dL RDW 16.2 H (11.5-15.5) % Lymphocytes # 0.7 L (1.0-4.8) k/uL PT (9.0-12.0) sec INR (<1.2) Chloride (98-107) mmol/L BUN (7-17) mg/dL Creatinine (0.52-1.04) mg/dL Total Protein (6.3-8.2) g/dL Albumin (3.5-5.0) g/dL Assessment and Plan Plan: #1 Mental status changes, resolved . cause is not entirely clear, may be related to infection and low-grade fever and acute kidney injury. computed tomography scan done in the emergency room reviewed, will consult neurology for further evaluation. Ammonia level less than 9. Per neurology services of mental status likely related to acute delirium probably related to infection acute renal insufficiency and anemia. Vitamin B1 and B12 and folate levels have been ordered. Patient has returned to baseline with mental status. Neurology services have signed off #2. Acute kidney injury. Creatinine 2.98 and bun 40. Nephrology services are following. Patient's home medications of lisinopril, potassium chloride and Lasix currently on hold. Kidney enzymes are improving. Ultrasound kidneys renal bladder ordered per nephrology completed showing no distinct abnormality. Creatinine trending down #3 Recent right lower extremity above-knee amputation with infection at the surgical site continue IV antibiotic, patient is maintained on cefepime and vancomycin, obtain a blood cultures, consult infectious disease, consult vascular surgery for follow-up. Patient maintained on IV antibiotics. Infectious disease following. Urine culture ordered. Blood culture showing no growth. Per infectious disease, Dr. Fischer [place] patient does not require debridement at this time to follow-up outpatient patient to be maintained on IV antibiotics daptomycin and cefepime #4 underlying history of hypertension, well-controlled on current medications continue. 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 current INR 2.9. Bridging Lovenox has been DC'd. Pharmacy to dose Coumadin. 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 Anemia with no active signs of bleeding. Patient maintained on Aranesp per nephrology. 1 unit PRBCs has been ordered hemoglobin 6.2. Hemoglobin 7.4 DVT prophylaxis Coumadin. GI prophylaxis Protonix Neurology services have cleared patient Vascular surgery unavailable Infectious disease and nephrology services are following Patient maintained on daptomycin and Maxipime for IV antibiotics. Blood and urine culture has been ordered when medically cleared patient will return to [facility] with IV antibiotics and follow-up outpatient with Dr. Fischer
[2019-03-26] MEDS: SODIUM CHLORIDE 0.9% 1,000 ML IV SCH ×2 (11:13→21:30)
--- NOTE | 2019-03-26 17:46 | PN ---
PROGRESS NOTE DATE OF SERVICE: 03/26/2019. REASON FOR FOLLOWUP: Right AKA stump wound with cellulitis. INTERVAL HISTORY: The patient is currently afebrile. Patient has been breathing comfortably. The patient denies having any chest pain or any cough. Some vague abdominal pain. No nausea, vomiting, or any worsening pain to the right AKA stump wound area. PHYSICAL EXAMINATION: Blood pressure 134/73 with a pulse of 80, temperature 98.3. She is 95% on room air. General description is an elderly female, lying in bed in no distress. Respiratory system: Unlabored breathing, clear to auscultation anteriorly. Heart S1, S2. Regular rate and rhythm. Abdomen soft. No tenderness. Right AKA stump wound is currently covered with the wound VAC. No surrounding redness. LABS: Hemoglobin 7.4, white count 7.0, creatinine 1.69. DIAGNOSTIC IMPRESSION AND PLAN: Patient with right above knee amputation stump wound with secondary cellulitis. Currently covered with daptomycin, cefepime. Continue local care with wound VAC and monitor clinical course closely. MMODL / IJN: [id number] /
[2019-03-26] MEDS ORDERED: WARFARIN 0.5 MG TAB PO ONE (18:00)
[2019-03-27] MEDS: SODIUM CHLORIDE 0.9% 1,000 ML IV SCH (04:12)
[2019-03-27] MEDS: CEFEPIME 1 GM in SODIUM CHLORIDE 0.9% 50 ML IVPB SCH (05:14)
--- NOTE | 2019-03-27 08:48 | P.PN ---
Subjective Patient is seen in follow-up for acute kidney injury. Renal function is improving. Oral intake is fair. Denies chest pain or shortness of breath. Urine output has been good. Hemoglobin 7.4 as of yesterday. No active bleeding. [place] a little short of breath this morning but better now. Vital signs are stable. General: The patient appeared well nourished and normally developed. HEENT: Head exam is unremarkable. Neck is without jugular venous distension. LUNGS: Lungs are clear to auscultation and percussion. Breath sounds decreased. HEART: Rate and Rhythm are regular. First and second heart sounds normal. No murmurs, rubs or gallops. ABDOMEN: Abdominal exam reveals normal bowel sounds. Non-tender and non- distended. No evidence of peritonitis. EXTREMITITES: No clubbing, cyanosis, or edema. Right AKA noted. Objective - Vital Signs Vital signs: Vital Signs Temp 97.9 F 03/27/19 04:10 Pulse 90 03/27/19 04:10 Resp 18 03/27/19 04:10 BP 143/75 03/27/19 04:10 Pulse Ox 93 L 03/27/19 04:10 Intake & Output 03/26/19 03/27/19 03/27/19 18:59 06:59 18:59 Intake Total 280 2020 Balance 280 2020 Weight 120 kg Intake: IV 820 Cefepime 1 gm In Sodium 50 Chloride 0.9% 50 ml @ 100 mls/hr IVPB Q24H JORGE Rx# :[id number] Sodium Chloride 0.9% 1, 770 000 ml @ 70 mls/hr IV . [id number] JORGE Rx#:[id number] Oral 280 1200 Other: Voiding Method Bedpan Bedpan Diaper Diaper Incontinent Incontinent # Voids 3 8 # Bowel Movements 1 - Labs CBC & Chem 7: 03/26/19 07:00 03/26/19 07:00 Assessment and Plan Plan: Assessment: 1. Acute kidney injury secondary to ATN secondary to acute blood loss anemia. Improving. Creatinine 1.69 as of yesterday. 2. Acute blood loss anemia status post blood transfusion. Hemoglobin 7.4 today. Iron deficiency noted - completed 3 doses of IV iron.. Also on Aranesp. 3. Right knee infection status post [id number] amputation. 4. Mild hyperchloremic metabolic acidosis secondary to IV fluids. Plan: Hep-Lock IV fluids. Encourage oral intake. Continue to monitor renal function and urine output. Patient will need to follow-up outpatient in the next 2 weeks.
[2019-03-27] MEDS: Acetaminophen-Codeine 300-30mg TAB PO PRN ×2 (09:23→17:35)
[2019-03-27] MEDS: CALCIUM CARB-VIT D 500MG-200UN 1 EACH TAB PO SCH ×2 (09:23→17:53)
[2019-03-27] MEDS: ASPIRIN 325 MG TAB PO SCH (09:25)
[2019-03-27] MEDS: PANTOPRAZOLE 40 MG TABLET PO SCH (09:25)
[2019-03-27] MEDS: PARoxetine 10 MG TAB PO SCH ×2 (09:25→21:17)
[2019-03-27] MEDS: MULTIVITAMINS, THERA 1 EACH TAB PO SCH (09:25)
[2019-03-27] MEDS: METOPROLOL SUCCINATE (ER) 25 MG TAB.ER.24H PO SCH (09:25)
[2019-03-27] MEDS: ISOSORBIDE MONONITRATE ER 30 MG TAB.ER.24H PO SCH (09:25)
[2019-03-27] MEDS: SENNOSIDES-DOCUSATE SODIUM 1 EACH TAB PO SCH ×2 (09:26→21:17)
[2019-03-27] MEDS: PYRIDOXINE 50 MG TAB PO SCH (09:26)
[2019-03-27 09:35] LABS: Anisocytosis Slight; Basophils % (A) 0 %; Eosinophils # (A) 0.3 k/uL (0-0.7); Eosinophils % (A) 5 %; HCT 23.4 % (34.0-46.0); HGB 7.2 gm/dL (11.4-16.0); Hypochromasia Moderate; Lymphocytes # (A) 0.6 k/uL (1.0-4.8); Lymphocytes % (A) 9 %; MCH 28.4 pg (25.0-35.0); MCHC 30.7 g/dL (31.0-37.0); MCV 92.4 fL (80.0-100.0); Mean Platelet Volume 7.3; Monocytes # (A) 0.4 k/uL (0-1.0); Monocytes % (A) 5 %; Neutrophils # (A) 5.6 k/uL (1.3-7.7); Neutrophils % (A) 80 %; Platelet Count 396 k/uL (150-450); RBC 2.53 m/uL (3.80-5.40); RDW 16.5 % (11.5-15.5)
[2019-03-27 10:01] LABS: Albumin 2.7 g/dL (3.5-5.0); Calcium 8.8 mg/dL (8.4-10.2); Potassium 4.1 mmol/L (3.5-5.1); Total Bilirubin 0.6 mg/dL (0.2-1.3); Total Protein 5.7 g/dL (6.3-8.2)
[2019-03-27 10:08] LABS: INR 3.1 (<1.2); Prothrombin Time 30.3 sec (9.0-12.0)
--- NOTE | 2019-03-27 12:54 | P.DS ---
Providers Date of admission: 03/18/19 19:07 Expected date of discharge: 03/27/19 Attending physician: Gage Gastelum Consults: 03/18/19 19:24 Consult Physician Routine Consulting Provider: Paz Carr Consult Reason/Comments: known Do you want consulting provider notified?: Yes Consult Physician Urgent Consulting Provider: Esvin Fischer Consult Reason/Comments: known Do you want consulting provider notified?: Yes 03/19/19 11:16 Consult Physician Routine Consulting Provider: Lisa Padilla Consult Reason/Comments: mental status changes Do you want consulting provider notified?: Yes 03/20/19 07:27 Consult Physician Routine Consulting Provider: Prakash Aiken Consult Reason/Comments: GFR <45 PICC line placement Do you want consulting provider notified?: Yes 03/23/19 14:42 Consult Physician Routine Consulting Provider: Esvin Fischer Consult Reason/Comments: wound sutures Do you want consulting provider notified?: Yes 03/24/19 14:00 Consult Physician Routine Consulting Provider: Megan Koehler Consult Reason/Comments: recent amputation and debridement Do you want consulting provider notified?: Yes Primary care physician: Gage [facility] Course: Discharge diagnosis #1 Mental status changes, resolved . cause is not entirely clear, may be related to infection and low-grade fever and acute kidney injury. computed tomography scan done in the emergency room reviewed, will consult neurology for further evaluation. Ammonia level less than 9. Per neurology services of mental status likely related to acute delirium probably related to infection acute renal insufficiency and anemia. Vitamin B1 and B12 and folate levels have been ordered. Patient has returned to baseline with mental status. Neurology services have signed off #2. Acute kidney injury. Creatinine 2.98 and bun 40. Nephrology services are following. Patient's home medications of lisinopril, potassium chloride and Lasix currently on hold. Kidney enzymes are improving. Ultrasound kidneys renal bladder ordered per nephrology completed showing no distinct abnormality. Creatinine trending down #3 Recent right lower extremity above-knee amputation with infection at the surgical site continue IV antibiotic, patient is maintained on cefepime and vancomycin, obtain a blood cultures, consult infectious disease, consult vascular surgery for follow-up. Patient maintained on IV antibiotics. Infectious disease following. Urine culture ordered. Blood culture showing no growth. Per infectious disease, Dr. Fischer [place] patient does not require debridement at this time to follow-up outpatient patient to be maintained on IV antibiotics daptomycin and cefepime. Patient was evaluated by vascular surgery Dr. Escobar, recommending wound VAC application to promote healing of incision. Patient to follow-up with Dr. Fischer outpatient #4 underlying history of hypertension, well-controlled on current medications continue. 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 current INR 2.9. Bridging Lovenox has been DC'd. Pharmacy to dose Coumadin. Current INR 2.6. 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 Anemia with no active signs of bleeding. Patient maintained on Aranesp per nephrology. 1 unit PRBCs has been ordered hemoglobin 6.2. Hemoglobin 7.2. Patient will receive IV iron prior to discharge. Maintain on ferrous sulfate Hospital course Maria Teresa Celeste is a 73-year-old female well known to my practice with prolonged past medical history, who was recently admitted to [facility], she was receiving IV antibiotic via PICC line. Patient was confused and agitated she had significant mental status changes she pulled out her PICC line. senior living was attempting to replace PICC line, however patient was getting more confused and agitated and she was having low-grade fever of 100.4 decision was made to proceed with sending patient to emergency room for evaluation. Patient has a history of right knee replacement complicated with infection she had multiple surgeries on her right knee, and ultimately she had above-knee amputation on the right, she developed infection at the amputation site and was transferred to [facility], she recently returned and was admitted to [facility] for antibiotic management. On 03/20/2019 patient is currently resting comfortably in bed. Patient does appear less confused than yesterday but still confused at times. Patient's c reatinine elevated at 2.95 and bun 39. Nephrology services are following. INR today 2.9. Bridging Lovenox has been DC'd. Patient remains on IV antibiotics. Infectious disease, neurology, nephrology and vascular surgery following. At this time patient denies chest pain. Patient denies shortness of breath. Patient denies nausea vomiting or diarrhea On 03/21/2019 patient is currently resting comfortably in bed eating breakfast. Patient seems confused than yesterday. Patient was evaluated by neurology services altered mental status changes likely secondary to infection and acute kidney injury per neurology. Creatinine slightly improved today 2.89 and bun 41. Nephrology, infectious disease, neurology and vascular surgery following. This time patient denies chest pain or shortness breath. Patient denies nausea vomiting or diarrhea. Patient denies any urinary burning and frequency On 03/22/2019 patient is currently resting comfortably in bed eating breakfast. Patient seems confused than yesterday. Patient was evaluated by neurology services altered mental status changes likely secondary to infection and acute kidney injury per neurology. Creatinine slightly improved today 2.89 and bun 41. Nephrology, infectious disease, neurology and vascular surgery following. This time patient denies chest pain or shortness breath. Patient denies nausea vomiting or diarrhea. Patient denies any urinary burning and frequency On 03/23/2019 patient is currently resting comfortably in bed. Mentation has significantly improved. Neurology services have signed off. Creatinine 2.37 and bun 37. 1 unit of blood has been ordered or patient but due to antibodies patient was unable to receive until this morning. Per nursing staff per Dr. Carr will discuss case with Dr. Fischer. Dr. Fischer has been consulted. Patient denies chest pain or shortness of breath. Patient denies nausea vomiting or diarrhea. Patient denies any urinary burning or frequency. Per nursing staffof bleeding at surgical site or any other signs of blood loss On 03/24/2019 patient is resting comfortably in bed. Patient is alert and oriented 3. Per nursing staff Dr. Fischer is out of town. Did discuss case with Dr. Carr. Patient does not need surgical debridement he can follow-up as outpatient with Dr. Fischer per infectious disease. Patient remains on daptomycin and cefepime. Patient did receive 1 unit of PRBCs. Hemoglobin 7.4 today. Creatinine trending down to 2.15 and bun 31. At this time patient denies chest pain or shortness of breath patient denies nausea vomiting or diarrhea. Patient denies any urinary burning or frequency 03/25/2019 patient was seen and examined on the medical floor she is alert and oriented 3 in no apparent distress she is complaining of pain in the right lower extremity otherwise she denies any complaints there is no fever or chills no headache or dizziness no chest pain no shortness of breath no cough no abdominal pain no nausea or vomiting no diarrhea no burning was urination no frequency or urgency and no hematuria On 03/26/2019 patient is alert and oriented 3 in no apparent distress, she states that she is feeling depressed, she is having some pain in her right lower extremity she is complaining of shortness of breath otherwise she denies any complaints there is no fever or chills no headache or dizziness no cough no naus ea or vomiting no abdominal pain no diarrhea no burning was urination no frequency or urgency and no hematuria. On 03/27/2019 patient is alert and oriented 3. Creatinine improving to 1.54 and bun 17. Discussed case with Dr. Carr per infectious disease patient to continue IV antibiotics for 2 weeks. Wound VAC has been ordered per vascular surgery covering for Dr. Fischer. Patient will follow-up with Dr. Fischer outpatient. Hemoglobin 10.2. Patient will receive IV iron prior to discharge. Maintain on ferrous sulfate. INR 3.1. Patient to resume home Coumadin dose on 03/28/2019 repeat INR for 03/03/2019. I performed an examination of the patient and discussed their management with the Nurse Practitioner. I have reviewed the Nurse Practitioner's notes and agree with the documented findings and plan of care Patient Condition at Discharge: Stable Plan - Discharge Summary Discharge Rx Participant: No New Discharge Prescriptions: New Darbepoetin Raj [Aranesp] 60 mcg SQ Q7D syringe Pyridoxine [Vitamin B-6] 50 mg PO DAILY tab Continue diphenhydrAMINE HCL [Benadryl] 25 mg PO HS PRN PRN Reason: Itching Allopurinol [Zyloprim] 300 mg PO DAILY@0900 Multivitamins, Thera [Multivitamin (formulary)] 1 tab PO DAILY@0900 amLODIPine [Norvasc] 5 mg PO DAILY@0900 Pravastatin Sodium [Pravachol] 20 mg PO HS@2100 Acetaminophen Tab [Tylenol] 650 mg PO Q5H PRN PRN Reason: Fever Isosorbide Mononitrate ER [Imdur] 30 mg PO DAILY@0900 Cyclobenzaprine [Flexeril] 10 mg PO BID PRN PRN Reason: Pain PARoxetine HCL [Paxil] 30 mg PO BID@0900,2100 Diazepam [Valium] 5 mg PO Q6H PRN PRN Reason: Muscle Spasm Loperamide HCl [Loperamide] 2 mg PO Q6H PRN PRN Reason: Diarrhea Omeprazole [PriLOSEC] 10 mg PO BID PRN PRN Reason: GERD Acetaminophen-Codeine 300-30mg [Tylenol w/codeine #3] 1 tab PO Q6H PRN PRN Reason: Pain Cefepime HCl [Maxipime] 2 gm IV Q8H Sennosides/Docusate Sodium [Senna Plus 8.6-50 mg Tablet] 1 tab PO BID@0900,2100 Lactose-Reduced Food [Ensure Plus] 120 ml PO BID@0900,2100 Calcium Carbonate/Vitamin D3 [Calcium 600-Vit D3 400 Tablet] 1 tab PO BID@0900,1700 Metoprolol Succinate (ER) [Toprol XL] 25 mg PO DAILY@0900 DAPTOmycin [Cubicin] 700 mg IV DAILY@0900 Warfarin Sodium [Coumadin] 4 mg PO DAILY@1700 Aspirin 325 mg PO DAILY@0900 Ondansetron HCl [Zofran] 4 mg PO Q6H PRN PRN Reason: Nausea And Vomiting Discontinued Potassium Chloride [Klor-Con 20] 20 meq PO DAILY@0900 Furosemide [Lasix] 40 mg PO DAILY@0600 Lisinopril [Zestril] 20 mg PO BID@0900,1700 Enoxaparin [Lovenox] 105 mg SQ BID@0900,2100 Acetaminophen Tab [Tylenol Tab] 975 mg PO Q8H PRN PRN Reason: Pain No Action LORazepam [Ativan] 0.5 mg PO BID@0900,1700 Discharge Medication List Allopurinol [Zyloprim] 300 mg PO DAILY@0900 08/21/14 [History] diphenhydrAMINE HCL [Benadryl] 25 mg PO HS PRN 08/21/14 [History] Multivitamins, Thera [Multivitamin (formulary)] 1 tab PO DAILY@0900 08/21/16 [History] amLODIPine [Norvasc] 5 mg PO DAILY@89907/03/16 [History] Acetaminophen Tab [Tylenol] 650 mg PO Q5H PRN 02/02/18 [History] Cyclobenzaprine [Flexeril] 10 mg PO BID PRN 02/02/18 [History] Isosorbide Mononitrate ER [Imdur] 30 mg PO DAILY@89902/02/18 [History] Pravastatin Sodium [Pravachol] 20 mg PO HS@209902/02/18 [History] PARoxetine HCL [Paxil] 30 mg PO BID@899,209903/27/18 [History] Diazepam [Valium] 5 mg PO Q6H PRN 10/27/18 [History] Loperamide HCl [Loperamide] 2 mg PO Q6H PRN 10/27/18 [History] Acetaminophen-Codeine 300-30mg [Tylenol w/codeine #3] 1 tab PO Q6H PRN 03/18/19 [History] Aspirin 325 mg PO DAILY@89903/18/19 [History] Calcium Carbonate/Vitamin D3 [Calcium 600-Vit D3 400 Tablet] 1 tab PO BID@0900,169903/18/19 [History] Cefepime HCl [Maxipime] 2 gm IV Q8H 03/18/19 [History] DAPTOmycin [Cubicin] 700 mg IV DAILY@89903/18/19 [History] LORazepam [Ativan] 0.5 mg PO BID@0900,169903/18/19 [History] Lactose-Reduced Food [Ensure Plus] 120 ml PO BID@09,209903/18/19 [History] Metoprolol Succinate (ER) [Toprol XL] 25 mg PO DAILY@89903/18/19 [History] Omeprazole [PriLOSEC] 10 mg PO BID PRN 03/18/19 [History] Ondansetron HCl [Zofran] 4 mg PO Q6H PRN 03/18/19 [History] Sennosides/Docusate Sodium [Senna Plus 8.6-50 mg Tablet] 1 tab PO BID@0900,209903/18/19 [History] Warfarin Sodium [Coumadin] 4 mg PO DAILY@1700 03/18/19 [History] Darbepoetin Raj [Aranesp] 60 mcg SQ Q7D syringe 03/27/19 [Rx] Pyridoxine [Vitamin B-6] 50 mg PO DAILY tab 03/27/19 [Rx] Follow up Appointment(s)/Referral(s): Gage Gastelum MD [Primary Care Provider] - 1-2 days Esvin Fischer MD [STAFF PHYSICIAN] - 1 Week Paz Carr MD [STAFF PHYSICIAN] - 1 Week Activity/Diet/Wound Care/Special Instructions: Activity as tolerated Diet heart healthy dysphagia level III chopped Resume home Coumadin dose on 03/28/2019. Recheck INR Monday 04/03 Wound VAC to be applied to right leg incision
[2019-03-27] MEDS ORDERED: SODIUM FERRIC GLUCONAT-SUCROSE 125 MG in SODIUM CHLORIDE 0.9% 100 ML IVPB ONE (13:00)
--- NOTE | 2019-03-27 17:42 | P.PN ---
Subjective Progress Note Date: 03/27/19 Patient seen and evaluated lying in bed without any complaints. Patient states since the wound VAC was applied she noticed an improvement in her discomfort and swelling. Patient remains afebrile. Wound VAC is intact with good suction. She states plan is for discharge to extended care facility. Objective - Vital Signs Vital signs: Vital Signs Temp 98.7 F 03/27/19 11:45 Pulse 97 03/27/19 11:45 Resp 17 03/27/19 11:45 BP 150/79 03/27/19 11:45 Pulse Ox 94 L 03/27/19 11:45 Intake & Output 03/26/19 03/27/19 03/27/19 18:59 06:59 18:59 Intake Total 280 2020 100 Balance 280 2020 100 Weight 120 kg Intake: IV 820 Cefepime 1 gm In Sodium 50 Chloride 0.9% 50 ml @ 100 mls/hr IVPB Q24H JORGE Rx# :[id number] Sodium Chloride 0.9% 1, 770 000 ml @ 70 mls/hr IV . [id number] JORGE Rx#:[id number] Intake, IV Titration 100 Amount Sodium Chloride 0.9% 1, 100 000 ml @ 50 mls/hr IV . Q20H JORGE Rx#:[id number] Oral 280 1200 Other: Voiding Method Bedpan Bedpan Bedpan Diaper Diaper Diaper Incontinent Incontinent Incontinent # Voids 3 8 # Bowel Movements 1 - Exam General appearance: The patient is alert, oriented, in no acute distress. HET: Head is normocephalic and atraumatic. Heart: S1 S2. Regular rate and rhythm. Lungs: No crackles or wheezes are heard. Extremities: Right BKA with wound VAC, intact with good suction. Neurological: No focal deficits. - Labs CBC & Chem 7: 03/27/19 08:58 03/27/19 08:58 Labs: Abnormal Lab Results - Last 24 Hours (Table) 03/27/19 03/27/19 03/27/19 Range/Units 08:58 08:58 08:58 RBC 2.53 L (3.80-5.40) m/uL Hgb 7.2 L (11.4-16.0) gm/dL Hct 23.4 L (34.0-46.0) % MCHC 30.7 L (31.0-37.0) g/dL RDW 16.5 H (11.5-15.5) % Lymphocytes # 0.6 L (1.0-4.8) k/uL PT 30.3 H (9.0-12.0) sec INR 3.1 H (<1.2) Chloride 110 H (98-107) mmol/L Creatinine 1.54 H (0.52-1.04) mg/dL Glucose 104 H (74-99) mg/dL Total Protein 5.7 L (6.3-8.2) g/dL Albumin 2.7 L (3.5-5.0) g/dL Assessment and Plan Assessment: Right below the knee amputation, wound Plan: Continue wound VAC as ordered, patient to be discharged to extended care facility with wound VAC. Patient instructed importance of following up with Mark Benton operative surgeon for ongoing in outpatient care. The above dictated assessment and findings were discussed with Dr. Wilkes. The impression and plan of care have been directed as dictated.
[2019-03-27] MEDS ORDERED: WARFARIN 0.5 MG TAB PO ONE (18:00)
--- NOTE | 2019-03-27 18:00 | PN ---
PROGRESS NOTE DATE OF SERVICE: 03/27/2019 REASON FOR FOLLOWUP: Right AKA stump wound with secondary cellulitis. INTERVAL HISTORY: The patient is currently afebrile. The patient is breathing comfortably. The patient denies having any chest pain, shortness of breath or cough. No nausea, vomiting. No abdominal pain or any worsening pain to the right AKA wound area. PHYSICAL EXAMINATION: Blood pressure is 150/79 with a pulse of 97, temperature 98.7, she is 94% on room air. General description is an elderly female lying in bed in no distress. Respiratory system: Unlabored breathing, clear to auscultation anteriorly. Heart S1, S2. Regular rate and rhythm. Abdomen soft, no tenderness. Right AKA wound is currently covered with a wound VAC. LABS: Hemoglobin 7.0, BUN of 17, creatinine 1.54. DIAGNOSTIC IMPRESSION AND PLAN: Patient with right above knee amputation stump wound with secondary cellulitis. Local wound care to continue with wound VAC. The patient continue with cefepime and daptomycin for another 10 days to 2 weeks and close outpatient followup. MMODL / IJN: [id number] /
[2019-03-27] MEDS ORDERED: DAPTOmycin 500 MG in SODIUM CHLORIDE 0.9% 50 ML IVPB SCH (21:00)
[2019-03-27] MEDS: diphenhydrAMINE 25 MG CAP PO PRN (21:17)
[2019-03-28 00:46] VITALS: RESP 18
[2019-03-28] MEDS: Acetaminophen-Codeine 300-30mg TAB PO PRN (02:41)
[2019-03-28 04:43] VITALS: BP 136/68; PULSE 79; TEMP 98.1
[2019-03-28] MEDS: CEFEPIME 1 GM in SODIUM CHLORIDE 0.9% 50 ML IVPB SCH (05:47)
[2019-03-28 08:25] LABS: Prothrombin Time 28.7 sec (9.0-12.0)
[2019-03-28] MEDS: ASPIRIN 325 MG TAB PO SCH (09:06)
[2019-03-28] MEDS: PARoxetine 10 MG TAB PO SCH (09:07)
[2019-03-28] MEDS: CALCIUM CARB-VIT D 500MG-200UN 1 EACH TAB PO SCH (09:07)
[2019-03-28] MEDS: ISOSORBIDE MONONITRATE ER 30 MG TAB.ER.24H PO SCH (09:07)
[2019-03-28] MEDS: METOPROLOL SUCCINATE (ER) 25 MG TAB.ER.24H PO SCH (09:07)
[2019-03-28] MEDS: PYRIDOXINE 50 MG TAB PO SCH (09:07)
[2019-03-28] MEDS: MULTIVITAMINS, THERA 1 EACH TAB PO SCH (09:07)
[2019-03-28] MEDS: PANTOPRAZOLE 40 MG TABLET PO SCH (09:07)
[2019-03-28] MEDS: SENNOSIDES-DOCUSATE SODIUM 1 EACH TAB PO SCH (09:07)
[2019-03-28] MEDS ORDERED: FUROSEMIDE 40 MG TAB PO SCH (09:15)
--- NOTE | 2019-03-28 10:48 | P.PN ---
Subjective Progress Note Date: 03/28/19 Maria Teresa Celeste is a 73-year-old female well known to my practice with prolonged past medical history, who was recently admitted to [facility] on the [facility] home, she was receiving IV antibiotic via PICC line. Patient was confused and agitated she had significant mental status changes she pulled out her PICC line. snf was attempting to replace PICC line, however patient was getting more confused and agitated and she was having low-grade fever of 100.4 decision was made to proceed with sending patient to emergency room for evaluation. 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 On 03/20/2019 patient is currently resting comfortably in bed. Patient does appear less confused than yesterday but still confused at times. Patient's creatinine elevated at 2.95 and bun 39. Nephrology services are following. INR today 2.9. Bridging Lovenox has been DC'd. Patient remains on IV antibiotics. Infectious disease, neurology, nephrology and vascular surgery following. At this time patient denies chest pain. Patient denies shortness of breath. Patient denies nausea vomiting or diarrhea On 03/21/2019 patient is currently resting comfortably in bed eating breakfast. Patient seems confused than yesterday. Patient was evaluated by neurology services altered mental status changes likely secondary to infection and acute kidney injury per neurology. Creatinine slightly improved today 2.89 and bun 41. Nephrology, infectious disease, neurology and vascular surgery following. This time patient denies chest pain or shortness breath. Patient denies nausea vomiting or diarrhea. Patient denies any urinary burning and frequency On 03/22/2019 patient is currently resting comfortably in bed eating breakfast. Patient seems confused than yesterday. Patient was evaluated by neurology services altered mental status changes likely secondary to infection and acute kidney injury per neurology. Creatinine slightly improved today 2.89 and bun 41. Nephrology, infectious disease, neurology and vascular surgery following. This time patient denies chest pain or shortness breath. Patient denies nausea vomiting or diarrhea. Patient denies any urinary burning and frequency On 03/23/2019 patient is currently resting comfortably in bed. Mentation has significantly improved. Neurology services have signed off. Creatinine 2.37 and bun 37. 1 unit of blood has been ordered or patient but due to antibodies patient was unable to receive until this morning. Per nursing staff per Dr. Carr will discuss case with Dr. Fischer. Dr. Fischer has been consulted. Patient denies chest pain or shortness of breath. Patient denies nausea vomiting or diarrhea. Patient denies any urinary burning or frequency. Per nursing staffof bleeding at surgical site or any other signs of blood loss On 03/24/2019 patient is resting comfortably in bed. Patient is alert and oriented 3. Per nursing staff Dr. Fischer is out of town. Did discuss case with Dr. Carr. Patient does not need surgical debridement he can follow-up as outpatient with Dr. Fischer per infectious disease. Patient remains on daptomycin and cefepime. Patient did receive 1 unit of PRBCs. Hemoglobin 7.4 today. Creatinine trending down to 2.15 and bun 31. At this time patient denies chest pain or shortness of breath patient denies nausea vomiting or diarrhea. Patient denies any urinary burning or frequency 03/25/2019 patient was seen and examined on the medical floor she is alert and oriented 3 in no apparent distress she is complaining of pain in the right lower extremity otherwise she denies any complaints there is no fever or chills no headache or dizziness no chest pain no shortness of breath no cough no abdominal pain no nausea or vomiting no diarrhea no burning was urination no frequency or urgency and no hematuria On 03/26/2019 patient is alert and oriented 3 in no apparent distress, she states that she is feeling depressed, she is having some pain in her right lower extremity she is complaining of shortness of breath otherwise she denies any complaints there is no fever or chills no headache or dizziness no cough no nausea or vomiting no abdominal pain no diarrhea no burning was urination no frequency or urgency and no hematuria. On 03/27/2019 patient is alert and oriented 3. Creatinine improving to 1.54 and bun 17. Discussed case with Dr. Carr per infectious disease patient to continue IV antibiotics for 2 weeks. Wound VAC has been ordered per vascular surgery covering for Dr. Fischer. Patient will follow-up with Dr. Fischer outpatient. Hemoglobin 10.2. Patient will receive IV iron prior to discharge. Maintain on ferrous sulfate. INR 3.1. Patient to resume home Coumadin dose on 03/28/2019 repeat INR for 03/03/2019. On 03/28/2019 patient is alert and oriented 3 resting comfortably in bed. Awaiting prior also for insurance authorization to discharge to [facility]. Home Lasix dose has been resumed. INR 3.0. Pharmacy to dose while in hospital for patient to resume home Coumadin dose upon discharge 4 mg daily. Wound VAC remains in place. Patient remains afebrile. At this time patient denies chest pain or shortness of breath. Patient denies nausea vomiting or diarrhea. Patient denies any urinary burning or frequency Objective - Vital Signs Vital signs: Vital Signs Temp 98.1 F 03/28/19 04:40 Pulse 79 03/28/19 04:40 Resp 18 03/28/19 04:40 BP 136/68 03/28/19 04:40 Pulse Ox 91 L 03/28/19 04:40 Intake & Output 03/27/19 03/28/19 03/28/19 18:59 06:59 18:59 Intake Total 100 530 Output Total 250 Balance 100 280 Intake: Intake, IV Titration 100 50 Amount DAPTOmycin 500 mg In 50 Sodium Chloride 0.9% 50 ml @ 100 mls/hr IVPB Q48H JORGE Rx#:[id number] Sodium Chloride 0.9% 1, 100 000 ml @ 50 mls/hr IV . Q20H JORGE Rx#:[id number] Oral 480 Output: Other 250 Other: Voiding Method Bedpan Bedpan Diaper Diaper Incontinent Incontinent # Voids 2 1 - Exam in general patient is alert confused, slightly agitated in no apparent distress, is in the room during exam HEENT head normocephalic and atraumatic Neck is supple no JVD no goiter no lymphadenopathy Chest exam reveals a few scattered crackles no wheezing Cardiac exam reveals regular heart sounds S1 and S2 no gallops no murmurs Abdomen is soft nontender no organomegaly with normal bowel sounds Extremity there is above-knee amputation on the right there is mild swelling on the left, I was unable to examine surgical site due to patient agitation Neurological examination patient is alert and oriented 3 no focal neurological deficit patient is moving all 4 extremities spontaneously no facial drooping speech is paranoid but fluent - Labs CBC & Chem 7: 03/27/19 08:58 03/27/19 08:58 Labs: Abnormal Lab Results - Last 24 Hours (Table) 03/28/19 Range/Units 07:34 PT 28.7 H (9.0-12.0) sec INR 3.0 H (<1.2) Assessment and Plan Assessment: #1 Mental status changes, resolved . cause is not entirely clear, may be related to infection and low-grade fever and acute kidney injury. computed tomography scan done in the emergency room reviewed, will consult neurology for further evaluation. Ammonia level less than 9. Per neurology services of mental status likely related to acute delirium probably related to infection acute renal insufficiency and anemia. Vitamin B1 and B12 and folate levels have been ordered. Patient has returned to baseline with mental status. Neurology services have signed off #2. Acute kidney injury. Creatinine 2.98 and bun 40. Nephrology services are following. Patient's home medications of lisinopril, potassium chloride and Lasix currently on hold. Kidney enzymes are improving. Ultrasound kidneys renal bladder ordered per nephrology completed showing no distinct abnormality. Creatinine trending down #3 Recent right lower extremity above-knee amputation with infection at the surgical site continue IV antibiotic, patient is maintained on cefepime and vancomycin, obtain a blood cultures, consult infectious disease, consult [facility] sc[facility] surgery for follow-up. Patient maintained on IV antibiotics. Infectious disease following. Urine culture ordered. Blood culture showing no growth. Per infectious disease, Dr. Fischer [place] patient does not require debridement at this time to follow-up outpatient patient to be maintained on IV antibiotics daptomycin and cefepime. Patient was evaluated by vascular surgery Dr. Escobar, recommending wound VAC application to promote healing of incision. Patient to follow-up with Dr. Fischer outpatient and maintained wound VAC at [facility] facility #4 underlying history of hypertension, well-controlled on current medications continue. 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 current INR 2.9. Bridging Lovenox has been DC'd. Pharmacy to dose Coumadin. Current INR 2.6. She to resume on home Coumadin dose upon discharge. Pharmacy to dose Coumadin while hospitalized #6 evidence of urinary tract infection Will continue with current antibiotics. 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 Anemia with no active signs of bleeding. Patient maintained on Aranesp per nephrology. 1 unit PRBCs has been ordered hemoglobin 6.2. Hemoglobin 7.2. Patient will receive IV iron prior to discharge. Maintain on ferrous sulfate Dr. DEJAN Lerma will be covering for Dr. Gastelum March 29 to April 02 Awaiting insurance prior off for [facility] I performed an examination of the patient and discussed their management with the Nurse Practitioner. I have reviewed the Nurse Practitioner's notes and agree with the documented findings and plan of care
--- NOTE | 2019-03-31 04:16 | CDI ---
Documentation Clarification Form Date: 03/31/2019 From: HIGINIO GARCIA Phone: If you have a question about this query, please contact Itzel Gill [employer] at [phone] between 8am and 5pm. Admit Date: 03/18/19 Discharge Date: 03/28/19 Patient Name: Maria Teresa Celeste Visit Number: [id number] ATTENTION: The Clinical Documentation Specialists (CDI) and [facility] Coding Staff appreciate your assistance in clarifying documentation. Please respond to the clarification below the line at the bottom and electronically sign. The CDI & [facility] Coding staff will review the response and follow-up if needed. Please note: Queries are made part of the Legal Health Record. If you have any questions, please contact the author of this message via ITS. Dear Gage Irwin., The patient presented with Mental status changes, Cause is not entirely clear, maybe related to infection and low-grade fever and acute kidney injury. History/Risk Factors: 73-year-old female presents to the ED from [facility] for confusion and pulling out PICC line.Medical History Above the Knee amputation with infection; HTN; Clinical Indicators: WBC : 8 Vitals signs on admission: Pulse 100 Respiration 18 Treatment: 03/18 03/19 Cefepime ivpb Q 24/hr; Daptomycin ivpb Q 48Hr; 03/18 0.9ns 1L bolus followed by 130cchr Antibiotics: Cefepime, Daptomycin IV Bolus: Yes Under ED clinical impression by Dr. Azael Gonzalez DO mentioned as "Fever, Sepsis, Postoperative wound infection, Status post PICC central line placement" In your professional opinion, please clarify if these findings signify one of the following condition, Condition Sepsis ruled out SIRS, without underlying infectious process Sepsis Severe Sepsis Septic Shock Other, please specify Unable to determine sepsis MTDD
--- NOTE | 2019-04-09 23:17 | CDI ---
Documentation Clarification Form Date: 04/10/2019 From: HIGINIO GARCIA Phone: If you have a question about this query, please contact Itzel Gill Sample Builder at [phone] between 8am and 5pm. Admit Date: 03/18/19 Discharge Date: 03/28/19 Patient Name: Maria Teresa Celeste Visit Number: [id number] ATTENTION: The Clinical Documentation Specialists (CDI) and [facility] Coding Staff appreciate your assistance in clarifying documentation. Please respond to the clarification below the line at the bottom and electronically sign. The CDI & [facility] Coding staff will review the response and follow-up if needed. Please note: Queries are made part of the Legal Health Record. If you have any questions, please contact the author of this message via ITS. Dear Gage Irwin., The patient presented with Mental status changes, Cause is not entirely clear, maybe related to infection and low-grade fever and acute kidney injury. History/Risk Factors: 73-year-old female presents to the ED from [facility] for confusion and pulling out PICC line.Medical History Above the Knee amputation with infection; HTN; Clinical Indicators: WBC : 8 Vitals signs on admission: Pulse 100 Respiration 18 Treatment: 03/18 03/19 Cefepime ivpb Q 24/hr; Daptomycin ivpb Q 48Hr; 03/18 0.9ns 1L bolus followed by 130cchr Antibiotics: Cefepime, Daptomycin IV Bolus: Yes Under ED clinical impression by Dr. Azael Gonzalez DO mentioned as "Fever, Sepsis, Postoperative wound infection, Status post PICC central line placement" 03/21 progress note as "Right AKA stump infected wound" 03/22 Progress note "Right AKA stump wound with secondary cellulitis". In your professional opinion, please clarify the source of Sepsis, Sepsis due to Post-op wound as cellulitis(Amputration site) Sepsis due to UTI Other Please specify sepsis due to post-op wound MTDD
== END 2019-03-28 11:10 | DRG 862 ==
LOC: EC 15:04 → 5NMEDONC 19:07
PROVIDERS: ADMIT Internal Medicine; ATTEND Internal Medicine
PROC: 02HV33Z Insertion of Infusion Device into Superior Vena Cava, Percutaneous Approach (ICD-10-PCS; principal; 2019-03-21)
DX: T81.44XA Sepsis following a procedure, initial encounter (principal); A41.9 Sepsis, unspecified organism; N17.0 Acute kidney failure with tubular necrosis; G93.41 Metabolic encephalopathy; D62 Acute posthemorrhagic anemia; E87.2 Acidosis; N39.0 Urinary tract infection, site not specified; L03.115 Cellulitis of right lower limb; D50.9 Iron deficiency anemia, unspecified; E66.9 Obesity, unspecified; F32.9 Major depressive disorder, single episode, unspecified; H35.30 Unspecified macular degeneration; F41.9 Anxiety disorder, unspecified; I12.9 Hypertensive chronic kidney disease with stage 1 through stage 4 chronic kidney disease, or unspecified chronic kidney disease; M10.9 Gout, unspecified; Z96.651 Presence of right artificial knee joint; N18.9 Chronic kidney disease, unspecified; Z79.01 Long term (current) use of anticoagulants; Z79.2 Long term (current) use of antibiotics; Z79.82 Long term (current) use of aspirin; Z79.899 Other long term (current) drug therapy; Z80.8 Family history of malignant neoplasm of other organs or systems; Z82.3 Family history of stroke; Z82.49 Family history of ischemic heart disease and other diseases of the circulatory system; Z86.718 Personal history of other venous thrombosis and embolism; Z87.440 Personal history of urinary (tract) infections; Z86.711 Personal history of pulmonary embolism; Z89.611 Acquired absence of right leg above knee; Z90.710 Acquired absence of both cervix and uterus
CPT/HCPCS: 36415; 36573; 70450; 74022; 76770; 80053; 80306; 81001; 82140; 82565; 82607; 82746; 83540; 83550; 84207; 84425; 84443; 84484; 84520; 85025; 85610; 85730; 86140; 86850; 86860; 86870; 86880; 86900; 86901; 86902; 86920; 87040; 87086; 87502; 93005; 94760; 96360; 96361; 99285

== ENCOUNTER 2019-04-03 09:50 | Inpatient (IN) | payer MEDICARE ==
[2019-04-03] MEDS ORDERED: SODIUM CHLORIDE 0.9% 500 ML 500 ML IV STA (10:16)
[2019-04-03] MEDS ORDERED: SODIUM CHLORIDE 0.9% 1,000 ML IV STA (10:16)
--- NOTE | 2019-04-03 10:29 | ED ---
Altered Mental Status HPI - General Chief Complaint: Altered Mental Status Stated Complaint: altered mental status Source: patient Mode of arrival: EMS Limitations: no limitations - History of Present Illness Initial Comments: This 73-year-old white female presents from the intermediate with some altered mental status. She apparently does have a moderately complex recent history. She previously had a right knee total arthroplasty in 2004. This was revised in 2013 for component loosening following the revision she developed infection of the right knee. She had an antibiotic spacer placed for over a year and eventually was converted to a hinge knee prosthesis. She had a [id number] amputation done by Dr. Fischer from vascular surgery. She had this done on 02/13/2019. She had postoperative complications of leaving at the surgical site and skin necrosis. She was transferred to [facility] and had irrigation and debridement of the wound as well as a wound VAC Application. She apparently had cultures done which showed pseudomonas. She was discharged on IV antibiotics of cefepime and daptomycin for 6 weeks. She currently has a PICC line. She also recently was diagnosed with a urinary tract infection. F records are reviewed and she had lab work done on 03/29/2019 and this does show a hemoglobin low at 7.2. The sedimentation rate is significantly elevated at 1:15 in the C-reactive protein is elevated at 106. The white blood cell count was normal at that time. Other laboratory is essentially unremarkable. The is at bedside and relates that she seemed fine with her mental status yesterday but this morning she was very confused. She normally is apparently alert and oriented. He states that she has had some shaking chills over the last 2 days with mild tremor. The patient is unable to give any history herself. All history is obtained per , nursing staff, and old records. She apparently was just discharged from our hospital this past week. No other identifiable complaints or modifying factors. - Related Data Home Medications Medication Instructions Recorded Confirmed Allopurinol [Zyloprim] 300 mg PO DAILY@89908/21/14 04/03/19 diphenhydrAMINE HCL [Benadryl] 25 mg PO HS PRN 08/21/14 04/03/19 Multivitamins, Thera [Multivitamin 1 tab PO DAILY@0900 11/17/15 04/03/19 (formulary)] amLODIPine [Norvasc] 5 mg PO DAILY@0900 07/03/16/06/20 Acetaminophen Tab [Tylenol] 650 mg PO Q5H PRN 02/02/18 04/03/19 Cyclobenzaprine [Flexeril] 10 mg PO BID PRN 02/02/18 04/03/19 Isosorbide Mononitrate ER [Imdur] 30 mg PO DAILY@89902/02/18 04/03/19 Pravastatin Sodium [Pravachol] 20 mg PO HS@209902/02/18 04/03/19 PARoxetine HCL [Paxil] 30 mg PO BID@09,209903/27/18 04/03/19 Diazepam [Valium] 5 mg PO Q6H PRN 10/27/18 04/03/19 Loperamide HCl [Loperamide] 2 mg PO Q6H PRN 10/27/18 04/03/19 Acetaminophen-Codeine 300-30mg 1 tab PO Q6H PRN 03/18/19 04/03/19 [Tylenol w/codeine #3] Aspirin 325 mg PO DAILY@89903/18/19 04/03/19 Calcium Carbonate/Vitamin D3 1 tab PO BID@0900,169903/18/19 04/03/19 [Calcium 600-Vit D3 400 Tablet] Cefepime HCl [Maxipime] 2 gm IV Q8H 03/18/19 04/03/19 DAPTOmycin [Cubicin] 700 mg IV DAILY@89903/18/19 04/03/19 LORazepam [Ativan] 0.5 mg PO BID@0900,17003/18/19 04/03/19 Lactose-Reduced Food [Ensure Plus] 120 ml PO BID@09,209903/18/19 04/03/19 Metoprolol Succinate (ER) [Toprol 25 mg PO DAILY@89903/18/19 04/03/19 XL] Omeprazole [PriLOSEC] 10 mg PO BID PRN 03/18/19 04/03/19 Ondansetron HCl [Zofran] 4 mg PO Q6H PRN 03/18/19 04/03/19 Sennosides/Docusate Sodium [Senna 1 tab PO BID@09,209903/18/19 04/03/19 Plus 8.6-50 mg Tablet] Warfarin Sodium [Coumadin] 4 mg PO DAILY@1700 03/18/19 04/03/19 Darbepoetin Raj [Aranesp] 60 mcg SQ WE 04/03/19 04/03/19 Furosemide [Lasix] 40 mg PO DAILY@0600 04/03/19 04/03/19 Previous Rx's Medication Instructions Recorded Ferrous Sulfate [Feosol] 325 mg PO DAILY 30 Days #30 tab 03/27/19 Pyridoxine [Vitamin B-6] 50 mg PO DAILY tab 03/27/19 Allergies Allergy/AdvReac Type Severity Reaction Status Date / Time adhesive Allergy Rash/Hives Verified 04/03/19 10:32 carbamazepine [From Tegretol] Allergy Rash/Hives Verified 04/03/19 10:32 carisoprodol [From Soma] Allergy lowers b/p Verified 04/03/19 10:32 quickly & passes out corn Allergy Unknown Verified 04/03/19 10:32 doxycycline calcium Allergy Rash/Hives Verified 04/03/19 10:32 [From Vibramycin] doxycycline hyclate Allergy Rash/Hives,vomited Verified 04/03/19 10:32 [From Vibramycin] blood doxycycline monohydrate Allergy Rash/Hives,vomited Verified 04/03/19 10:32 [From Vibramycin] blood erythromycin base Allergy Rash/Hives,vomited Verified 04/03/19 10:32 [From E-Mycin] blood hydrocodone bitartrate Allergy abdominal Verified 04/03/19 10:32 [From Vicodin] pain, diarrhea milk Allergy Unknown Verified 04/03/19 10:32 NSAIDS (Non-Steroidal Allergy Swelling Verified 04/03/19 10:32 Anti-Inflamma piroxicam [From Feldene] Allergy Swelling Verified 04/03/19 10:32 ciprofloxacin [From Cipro] AdvReac Nausea & Verified 04/03/19 10:32 Vomiting wheat AdvReac Diarrhea Verified 04/03/19 10:32 Review of Systems ROS Statement: Those systems with pertinent positive or pertinent negative responses have been documented in the HPI. ROS Other: All systems not noted in ROS Statement are negative. Past Medical History Past Medical History: Eye Disorder, GERD/Reflux, Hypertension, Osteoarthritis (OA), Pulmonary Embolus (PE) Additional Past Medical History / Comment(s): DDD, gastroenteritis, h-pylori, gout, TMJ, bulging discs, left eye blind, macular degeneration BL eyes, multiple falls (not recent), transfers w/ walker to wheelchair, chronic UTI, osteoporosis, hypoglycemia. History of Any Multi-Drug Resistant Organisms: VRE Date of last positivie culture/infection: August 2013 MDRO Source:: Right knee Past Surgical History: Hysterectomy, Joint Replacement, Orthopedic Surgery, Tubal Ligation Additional Past Surgical History / Comment(s): Sternocleidomastoidectomy (right), right shoulder rotator cuff, rectocele/cystocele, right foot - Varma's neuroma/hammer toe, left outer forearm arthroscopy and shortening left ulna - plates and screws inserted, right wrist bundle of nerves , right knee arthroscopy/realignment of tendon/tibia/kneecap, 07-20-13 right knee replacement, 08-10-13 large hematoma removed, BL vitrectomies, BL cataract surgery, right right femur benign tumor removed, left foot bone spur. Right AKA done on Feb 13 per Pt of this year. Past Anesthesia/Blood Transfusion Reactions: Postoperative Nausea & Vomiting (PONV) Additional Past Anesthesia/Blood Transfusion Reaction / Comment(s): no complications with prior blood transfusion Past Psychological History: Anxiety, Depression Smoking Status: Never smoker Past Alcohol Use History: None Reported Past Drug Use History: None Reported - Past Family History Brother(s) Family Medical History: Cancer, Congestive Heart Failure (CHF) Additional Family Medical History / Comment(s): Heart problems, CABG, oral CA, pacemaker/defib. Father Family Medical History: Congestive Heart Failure (CHF), Hyperlipidemia, Hypertension, Myocardial Infarction (CA) Additional Family Medical History / Comment(s): at 97 years old. Mother Family Medical History: Congestive Heart Failure (CHF), CVA/TIA Additional Family Medical History / Comment(s): Pacemaker - January 16 at age 94 a few days after CVA. General Exam - General Exam Comments Initial Comments: GENERAL: The patient is well nourished and well hydrated. VITAL SIGNS: Heart rate, blood pressure, respiratory rate reviewed as recorded in nurse's notes. EYES: Pupils are round and reactive. Extraocular movements are intact. No conjunctival / lid redness or swelling. ENT: No external evidence of injury, swelling, or ecchymosis. Airway is patent. Throat is clear. NECK: Nontender. No swelling or evidence of injury. No subcutaneous emphysema. Trachea is midline. No thyroid mass. HEART: Regular rate and rhythm. Good peripheral pulses. LUNGS/CHEST: Breath sounds clear and equal bilaterally. No rales, rhonchi, or wheezes. No ecchymosis, subcutaneous emphysema, or tenderness. ABDOMEN: Abdomen soft without tenderness. No palpable masses or organomegaly. No peritoneal signs. No abdominal wall swelling or ecchymosis. EXTREMITIES: No extremity tenderness. Normal muscle tone and function. No t horacolumbar tenderness. NEUROLOGIC: Sensation is grossly intact. The patient is alert and will follow occasional commands but is not communicative. SKIN: The patient has a wound VAC present over the distal aspect of the right leg stump above the knee". There is some mild tenderness around this area. There is only mild erythema. PSYCHIATRIC: Alert and will follow commands but is not conversive. Limitations: no limitations Course Vital Signs 04/03/19 04/03/19 04/03/19 10:02 11:45 12:17 Temperature 99.8 F H Pulse Rate 92 97 95 Respiratory 20 20 Rate Blood Pressure 132/101 152/89 O2 Sat by Pulse 95 97 Oximetry Medical Decision Making - Medical Decision Making The patient was seen and examined. All diagnostics were reviewed. Old records from the [facility] were reviewed as well. Old records from the hospital are reviewed. The EKG also is reviewed and this does show a sinus tachycardia at a rate of 104. There is no acute ST-T wave changes noted. MS intervals 180, QRS duration is 72, and the QTc interval is 457. The laboratory is reviewed. It appears the patient does have significant urinary tract infection which is odd as she is currently on daptomycin and Maxipime antibiotics. They do not reveal any recent urinary culture and sensitivities in the chart. The patient also does have a degree of anemia as well as acute kidney injury. Her inflammatory markers are elevated. The x-ray of the right femur does show possible subacute osteomyelitis of the stump the right femur. The chest x-ray does not show any acute process. The computed tomography scan of the brain shows an abnormal lesion that may need follow-up, please see report for details. The case is discussed with Dr. Gasetlum who is familiar with the patient and he is agreeable with admission with Dr. Galloway from infectious disease to consult. - Lab Data Result diagrams: 04/03/19 10:10 04/03/19 10:10 Lab Results 04/03/19 04/03/19 04/03/19 Range/Units 10:10 10:10 10:10 WBC 10.4 (3.8-10.6) k/uL RBC 3.43 L (3.80-5.40) m/uL Hgb 9.8 L D (11.4-16.0) gm/dL Hct 31.5 L (34.0-46.0) % MCV 91.8 (80.0-100.0) fL MCH 28.5 (25.0-35.0) pg MCHC 31.1 (31.0-37.0) g/dL RDW 16.7 H (11.5-15.5) % Plt Count 432 (150-450) k/uL Neutrophils % 81 % Lymphocytes % 8 % Monocytes % 5 % Eosinophils % 4 % Basophils % 0 % Neutrophils # 8.4 H (1.3-7.7) k/uL Lymphocytes # 0.8 L (1.0-4.8) k/uL Monocytes # 0.6 (0-1.0) k/uL Eosinophils # 0.4 (0-0.7) k/uL Basophils # 0.0 (0-0.2) k/uL Hypochromasia Slight Anisocytosis Slight ESR 97 H (0-20) mm/hr PT (9.0-12.0) sec INR (<1.2) APTT (22.0-30.0) sec Sodium 141 (137-145) mmol/L Potassium 4.2 (3.5-5.1) mmol/L Chloride 99 (98-107) mmol/L Carbon Dioxide 34 H (22-30) mmol/L Anion Gap 8 mmol/L BUN 36 H (7-17) mg/dL Creatinine 2.27 H (0.52-1.04) mg/dL Est GFR (CKD-EPI)AfAm 24 (>60 ml/min/1.73 sqM) Est GFR (CKD-EPI)NonAf 21 (>60 ml/min/1.73 sqM) Glucose 106 H (74-99) mg/dL Plasma Lactic Acid Ananth 1.8 (0.7-2.0) mmol/L Calcium 10.8 H (8.4-10.2) mg/dL Phosphorus 2.8 (2.5-4.5) mg/dL Magnesium 1.6 (1.6-2.3) mg/dL Total Bilirubin 0.6 (0.2-1.3) mg/dL AST 34 (14-36) U/L ALT 14 (4-34) U/L Alkaline Phosphatase 108 (38-126) U/L Ammonia 9 (<30) umol/L Troponin I (0.000-0.034) ng/mL C-Reactive Protein 21.2 H (<10.0) mg/L Total Protein 7.1 (6.3-8.2) g/dL Albumin 3.5 (3.5-5.0) g/dL Urine Color Urine Appearance (Clear) Urine pH (5.0-8.0) Ur Specific [place] (1.001-1.035) Urine Protein (Negative) Urine Glucose (UA) (Negative) Urine Ketones (Negative) Urine Blood (Negative) Urine Nitrite (Negative) Urine Bilirubin (Negative) Urine Urobilinogen (<2.0) mg/dL Ur Leukocyte Esterase (Negative) Urine RBC (0-5) /hpf Urine WBC (0-5) /hpf Urine WBC Clumps (None) /hpf Ur Squamous Epith Cells (0-4) /hpf Urine Bacteria (None) /hpf Urine Mucus (None) /hpf Urine Yeast (Budding) (None) /hpf 04/03/19 04/03/19 04/03/19 Range/Units 10:10 10:10 11:10 WBC (3.8-10.6) k/uL RBC (3.80-5.40) m/uL Hgb (11.4-16.0) gm/dL Hct (34.0-46.0) % MCV (80.0-100.0) fL MCH (25.0-35.0) pg MCHC (31.0-37.0) g/dL RDW (11.5-15.5) % Plt Count (150-450) k/uL Neutrophils % % Lymphocytes % % Monocytes % % Eosinophils % % Basophils % % Neutrophils # (1.3-7.7) k/uL Lymphocytes # (1.0-4.8) k/uL Monocytes # (0-1.0) k/uL Eosinophils # (0-0.7) k/uL Basophils # (0-0.2) k/uL Hypochromasia Anisocytosis ESR (0-20) mm/hr PT 53.6 H (9.0-12.0) sec INR 5.5 H* (<1.2) APTT 43.5 H (22.0-30.0) sec Sodium (137-145) mmol/L Potassium (3.5-5.1) mmol/L Chloride (98-107) mmol/L Carbon Dioxide (22-30) mmol/L Anion Gap mmol/L BUN (7-17) mg/dL Creatinine (0.52-1.04) mg/dL Est GFR (CKD-EPI)AfAm (>60 ml/min/1.73 sqM) Est GFR (CKD-EPI)NonAf (>60 ml/min/1.73 sqM) Glucose (74-99) mg/dL Plasma Lactic Acid Ananth (0.7-2.0) mmol/L Calcium (8.4-10.2) mg/dL Phosphorus (2.5-4.5) mg/dL Magnesium (1.6-2.3) mg/dL Total Bilirubin (0.2-1.3) mg/dL AST (14-36) U/L ALT (4-34) U/L Alkaline Phosphatase (38-126) U/L Ammonia (<30) umol/L Troponin I <0.012 (0.000-0.034) ng/mL C-Reactive Protein (<10.0) mg/L Total Protein (6.3-8.2) g/dL Albumin (3.5-5.0) g/dL Urine Color Light Yellow Urine Appearance Turbid H (Clear) Urine pH 7.0 (5.0-8.0) Ur Specific [place] 1.013 (1.001-1.035) Urine Protein 1+ H (Negative) Urine Glucose (UA) Negative (Negative) Urine Ketones Negative (Negative) Urine Blood Moderate H (Negative) Urine Nitrite Negative (Negative) Urine Bilirubin Negative (Negative) Urine Urobilinogen <2.0 (<2.0) mg/dL Ur Leukocyte Esterase Large H (Negative) Urine RBC 45 H (0-5) /hpf Urine WBC >182 H (0-5) /hpf Urine WBC Clumps Many H (None) /hpf Ur Squamous Epith Cells 17 H (0-4) /hpf Urine Bacteria Few H (None) /hpf Urine Mucus Rare H (None) /hpf Urine Yeast (Budding) Few H (None) /hpf Disposition Clinical Impression: Osteomyelitis, Urinary tract infection, Change in mental status, Anemia, Acute kidney injury, History of amputation of extremity, Morbid obesity, Hypertension Disposition: ADMITTED IP TO THIS HOSP Condition: Fair Is patient prescribed a controlled substance at d/c from ED?: No Time of Disposition: 13:24 Decision Date: 04/03/19 Decision Time: 13:24
--- NOTE | 2019-04-03 11:20 | CT ---
EXAMINATION TYPE: CT brain wo con DATE OF EXAM: 04/03/2019 COMPARISON: 03/18/2019 HISTORY: 73-year-old female mental status changes, confusion TECHNIQUE: Examination was done in axial plane without intravenous contrast. Coronal and sagittal r econstructions performed. CT DLP: 1096.4 mGycm Automated exposure control for dose reduction was used. FINDINGS: There is no evidence of acute intracranial hemorrhage, acute ischemic changes, mass effect, or extra -axial fluid collection. There is no effacement of cerebral sulci or basal subarachnoid cisterns. T here is no hydrocephalus. There is no midline shift. Fierro-white matter distinction is preserved. Moderate patchy white matter hypodensities in both cerebral hemispheres. Vague 6 mm cortical density anterior right frontal lobe, axial image 35. In retrospect, finding is present back in 03/18/2019. Paranasal sinuses and mastoid air cells are well pneumatized. Some nonspecific posterior globe calcif ications on the left, unchanged from 03/18/2019 . IMPRESSION: 1. No acute intracranial abnormality seen. Patchy changes of chronic small vessel ischemic disease. 2. Vague 6 mm cortical density anterior right frontal lobe present on 03/18/2019 in retrospect. A sma ll cavernoma or other vascular malformation or other small cortical lesion are difficult to exclude. Consider contrast-enhanced MRI to further evaluate.
--- NOTE | 2019-04-03 11:29 | XR ---
EXAMINATION TYPE: XR femur RT DATE OF EXAM: 04/03/2019 CLINICAL HISTORY: Right femur pain. Possible osteoma myelitis. TECHNIQUE: Two views of the right femur are obtained. COMPARISON: 01/19/2014 FINDINGS: There is diaphyseal lucency of the mid femoral diaphyses prior surgical hardware. There is [id number] amputation of the mid femoral diaphysis. There is some subtle periosteal reaction and cortical thinning. Moderate degenerative change of the femoral acetabular joint and diffuse osseous d emineralization are also seen. IMPRESSION: Some subtle periosteal reaction of the distal femoral diaphysis at the above the knee amp utation site. This may be sequela of subacute or chronic osteomyelitis.
--- NOTE | 2019-04-03 11:32 | XR ---
EXAMINATION TYPE: XR chest 1V portable DATE OF EXAM: 04/03/2019 COMPARISON: 10/27/2018 HISTORY: Confusion and fever TECHNIQUE: Single frontal view of the chest is obtained. FINDINGS: The cardiomediastinal silhouette appears enlarged however this is likely related to rotati on and low lung volumes. Right-sided PICC terminates in the distal superior vena cava. No focal conso lidation, pleural effusion or pneumothorax. Osseous structures are grossly intact with diffuse demine ralization. IMPRESSION: Relative enlargement of the cardiomediastinal silhouette is likely related to patient po sitioning. No acute pulmonary process.
[2019-04-03 11:44] LABS: Lactic Acid, Venous 1.8 mmol/L (0.7-2.0)
[2019-04-03 11:45] LABS: Albumin 3.5 g/dL (3.5-5.0); C Reactive Protein 21.2 mg/L (<10.0); Calcium 10.8 mg/dL (8.4-10.2); Magnesium 1.6 mg/dL (1.6-2.3); Phosphorus 2.8 mg/dL (2.5-4.5); Potassium 4.2 mmol/L (3.5-5.1); Total Bilirubin 0.6 mg/dL (0.2-1.3); Total Protein 7.1 g/dL (6.3-8.2)
[2019-04-03 11:52] LABS: Partial Thromboplastin Time 43.5 sec (22.0-30.0); Prothrombin Time 53.6 sec (9.0-12.0)
[2019-04-03 11:58] LABS: Anisocytosis Slight; Basophils % (A) 0 %; Eosinophils # (A) 0.4 k/uL (0-0.7); Eosinophils % (A) 4 %; HCT 31.5 % (34.0-46.0); Hypochromasia Slight; Lymphocytes # (A) 0.8 k/uL (1.0-4.8); Lymphocytes % (A) 8 %; MCH 28.5 pg (25.0-35.0); MCHC 31.1 g/dL (31.0-37.0); MCV 91.8 fL (80.0-100.0); Mean Platelet Volume 7.5; Monocytes # (A) 0.6 k/uL (0-1.0); Monocytes % (A) 5 %; Neutrophils # (A) 8.4 k/uL (1.3-7.7); Neutrophils % (A) 81 %; Platelet Count 432 k/uL (150-450); RBC 3.43 m/uL (3.80-5.40); RDW 16.7 % (11.5-15.5); WBC 10.4 k/uL (3.8-10.6)
[2019-04-03 12:00] LABS: HGB 9.8 gm/dL (11.4-16.0)
[2019-04-03 12:07] LABS: INR 5.5 (<1.2)
[2019-04-03 12:21] LABS: Appearance,Urine Turbid (Clear); Bacteria,Urine Few /hpf; Bilirubin,Urine Negative (Negative); Blood,Urine Moderate (Negative); Budding Yeast,Urine Few /hpf; Color,Urine Light Yellow; Glucose,Urine (UA) Negative (Negative); Ketones,Urine Negative (Negative); Leukocyte Esterase,Urine Large (Negative); Mucus,Urine Rare /hpf; Nitrite,Urine Negative (Negative); Protein,Urine 1+ (Negative); RBC,Urine 45 /hpf (0-5); Specific Gravity,Urine 1.013 (1.001-1.035); Squamous Epithelial Cell,Urine 17 /hpf (0-4); Urobilinogen,Urine <2.0 mg/dL (<2.0); WBC,Urine >182 /hpf (0-5)
[2019-04-03 13:20] LABS: Erythrocyte Sedimentation Rate 97 mm/hr (0-20)
[2019-04-03] MEDS ORDERED: ACETAMINOPHEN TAB 325 MG TAB PO PRN (13:30)
[2019-04-03] MEDS ORDERED: ONDANSETRON 4 MG/2 ML VIAL IVP PRN (13:30)
[2019-04-03] MEDS ORDERED: NALOXONE 0.4 MG/ML 1 ML VIAL IV PRN (13:30)
[2019-04-03] MEDS ORDERED: CYCLOBENZAPRINE 10 MG TAB PO PRN (13:34)
[2019-04-03] MEDS ORDERED: DIAZEPAM 5 MG TAB PO PRN (13:34)
[2019-04-03] MEDS ORDERED: diphenhydrAMINE 25 MG CAP PO PRN (13:34)
[2019-04-03] MEDS ORDERED: Acetaminophen-Codeine 300-30mg TAB PO PRN (13:34)
[2019-04-03] MEDS ORDERED: LOPERAMIDE 2 MG CAP PO PRN (13:34)
[2019-04-03] MEDS ORDERED: SODIUM CHLORIDE 0.9% 500 ML IV STA (13:37)
[2019-04-03] MEDS ORDERED: NON FORMULARY DRUG (Cefepime Hcl [Maxipime] 2 GM) IV SCH (13:45)
[2019-04-03] MEDS ORDERED: SODIUM CHLORIDE 0.9% 1,000 ML IV SCH (16:15)
--- NOTE | 2019-04-03 16:25 | P.HPIM ---
History of Present Illness H&P Date: 04/03/19 Chief Complaint: Altered mental status changes This is a 73-year-old female who is presenting from [facility] with altered mental status changes. She has a complex medical history. She has a history of a right total knee arthroplasty in 2004. There is a component that was loosened in 2013 and she required revision and developed infection in that right knee. She also had a. However she required antibiotic spacer for over a year and and eventually had converted to a hinged knee prosthesis. She had [id number] amputation done with Dr. Fischer on 02/13/2019 at [facility]. She had postoperative complications with skin necrosis on the stump. She was transferred to [facility] and underwent irrigation and debridement of the wound and has wound VAC in place. Cultures had grown Pseudomonas and she was placed on cefepime and daptomycin for 6 weeks via PICC line. Patient was at [facility] receiving the IV antibiotics. She apparently s tarted to become confused and tried to stand up. She is not following commands at this time her eyes are open she's awake and essentially nonverbal. She does not appear to recognize her or daughter. She had a low-grade temp 99.8. White count was normal. C-reactive protein elevated at 21.2. She was found to have evidence of urinary tract infection. Her cefepime and daptomycin have been restarted. She had evidence of urinary retention in the ER and did require a Koehler catheter replaced. Infectious disease has been placed on consult. X-ray of the femur head showed some sub-optimal periosteal reaction the distal formal diaphysis and above the knee amputation. This may be sequela subacute or chronic osteomyelitis. Patient had a computed tomography scan of the brain showing no acute abnormality. Patchy changes of chronic small vessel ischemic disease. Vague 6 mm cortical density anterior right frontal lobe presents on 03/18/2019 scan in retrospect. A small cavernoma or other vascular malformation or other small cortical lesion or difficult to exclude. Patient will be admitted to the hospital for altered mental status changes, UTI and possible osteomyelitis of the right femur. 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 She also has history of iron deficiency anemia. Review of Systems Please refer to HPI otherwise unremarkable Past Medical History Past Medical History: Eye Disorder, GERD/Reflux, Hypertension, Osteoarthritis (OA), Pulmonary Embolus (PE) Additional Past Medical History / Comment(s): DDD, gastroenteritis, h-pylori, gout, TMJ, bulging discs, left eye blind, macular degeneration BL eyes, multiple falls (not recent), transfers w/ walker to wheelchair, chronic UTI, osteoporosis, hypoglycemia. History of Any Multi-Drug Resistant Organisms: VRE Date of last positivie culture/infection: August 2013 MDRO Source:: Right knee Past Surgical History: Hysterectomy, Joint Replacement, Orthopedic Surgery, Tubal Ligation Additional Past Surgical History / Comment(s): Sternocleidomastoidectomy (right), right shoulder rotator cuff, rectocele/cystocele, right foot - Varma's neuroma/hammer toe, left outer forearm arthroscopy and shortening left ulna - plates and screws inserted, right wrist bundle of nerves , right knee arthroscopy/realignment of tendon/tibia/kneecap, 07-20-13 right knee replacement, 08-10-13 large hematoma removed, BL vitrectomies, BL cataract surgery, right right femur benign tumor removed, left foot bone spur. Right AKA done on Feb 13 per Pt of this year. Past Anesthesia/Blood Transfusion Reactions: Postoperative Nausea & Vomiting (PONV) Additional Past Anesthesia/Blood Transfusion Reaction / Comment(s): no complications with prior blood transfusion Past Psychological History: Anxiety, Depression Smoking Status: Never smoker Past Alcohol Use History: None Reported Past Drug Use History: None Reported - Past Family History Brother(s) Family Medical History: Cancer, Congestive Heart Failure (CHF) Additional Family Medical History / Comment(s): Heart problems, CABG, oral CA, pacemaker/defib. Father Family Medical History: Congestive Heart Failure (CHF), Hyperlipidemia, Hypertension, Myocardial Infarction (AK) Additional Family Medical History / Comment(s): at 97 years old. Mother Family Medical History: Congestive Heart Failure (CHF), CVA/TIA Additional Family Medical History / Comment(s): Pacemaker - January 16 at age 94 a few days after CVA. Medications and Allergies Home Medications Medication Instructions Recorded Confirmed Type Allopurinol [Zyloprim] 300 mg PO DAILY@0900 08/21/14 04/03/19 History diphenhydrAMINE HCL [Benadryl] 25 mg PO HS PRN 08/21/14 04/03/19 History Multivitamins, Thera [Multivitamin 1 tab PO DAILY@0911/17/15 04/03/19 History (formulary)] amLODIPine [Norvasc] 5 mg PO DAILY@0900 07/03/16 04/03/19 History Acetaminophen Tab [Tylenol] 650 mg PO Q5H PRN 02/02/18 04/03/19 History Cyclobenzaprine [Flexeril] 10 mg PO BID PRN 02/02/18 04/03/19 History Isosorbide Mononitrate ER [Imdur] 30 mg PO DAILY@89902/02/18 04/03/19 History Pravastatin Sodium [Pravachol] 20 mg PO HS@209902/02/18 04/03/19 History PARoxetine HCL [Paxil] 30 mg PO BID@0900,2100 03/27/18 04/03/19 History Diazepam [Valium] 5 mg PO Q6H PRN 10/27/18 04/03/19 History Loperamide HCl [Loperamide] 2 mg PO Q6H PRN 10/27/18 04/03/19 History Acetaminophen-Codeine 300-30mg 1 tab PO Q6H PRN 03/18/19 04/03/19 History [Tylenol w/codeine #3] Aspirin 325 mg PO DAILY@0900 03/18/19 04/03/19 History Calcium Carbonate/Vitamin D3 1 tab PO BID@0900,1700 03/18/19 04/03/19 History [Calcium 600-Vit D3 400 Tablet] Cefepime HCl [Maxipime] 2 gm IV Q8H 03/18/19 04/03/19 History DAPTOmycin [Cubicin] 700 mg IV DAILY@0900 03/18/19 04/03/19 History LORazepam [Ativan] 0.5 mg PO BID@0900,1700 03/18/19 04/03/19 History Lactose-Reduced Food [Ensure Plus] 120 ml PO BID@0900,2100 03/18/19 04/03/19 History Metoprolol Succinate (ER) [Toprol 25 mg PO DAILY@0900 03/18/19 04/03/19 History XL] Omeprazole [PriLOSEC] 10 mg PO BID PRN 03/18/19 04/03/19 History Ondansetron HCl [Zofran] 4 mg PO Q6H PRN 03/18/19 04/03/19 History Sennosides/Docusate Sodium [Senna 1 tab PO BID@0900,2100 03/18/19 04/03/19 History Plus 8.6-50 mg Tablet] Warfarin Sodium [Coumadin] 4 mg PO DAILY@1700 03/18/19 04/03/19 History Ferrous Sulfate [Feosol] 325 mg PO DAILY 30 Days #30 tab 03/27/19 04/03/19 Rx Pyridoxine [Vitamin B-6] 50 mg PO DAILY tab 03/27/19 04/03/19 Rx Darbepoetin Raj [Aranesp] 60 mcg SQ WE 04/03/19 04/03/19 History Furosemide [Lasix] 40 mg PO DAILY@0600 04/03/19 04/03/19 History Allergies Allergy/AdvReac Type Severity Reaction Status Date / Time adhesive Allergy Rash/Hives Verified 04/03/19 10:32 carbamazepine [From Tegretol] Allergy Rash/Hives Verified 04/03/19 10:32 carisoprodol [From Soma] Allergy lowers b/p Verified 04/03/19 10:32 quickly & passes out corn Allergy Unknown Verified 04/03/19 10:32 doxycycline calcium Allergy Rash/Hives Verified 04/03/19 10:32 [From Vibramycin] doxycycline hyclate Allergy Rash/Hives,vomited Verified 04/03/19 10:32 [From Vibramycin] blood doxycycline monohydrate Allergy Rash/Hives,vomited Verified 04/03/19 10:32 [From Vibramycin] blood erythromycin base Allergy Rash/Hives,vomited Verified 04/03/19 10:32 [From E-Mycin] blood hydrocodone bitartrate Allergy abdominal Verified 04/03/19 10:32 [From Vicodin] pain, diarrhea milk Allergy Unknown Verified 04/03/19 10:32 NSAIDS (Non-Steroidal Allergy Swelling Verified 04/03/19 10:32 Anti-Inflamma piroxicam [From Feldene] Allergy Swelling Verified 04/03/19 10:32 ciprofloxacin [From Cipro] AdvReac Nausea & Verified 04/03/19 10:32 Vomiting wheat AdvReac Diarrhea Verified 04/03/19 10:32 Physical Exam Vitals: Vital Signs Temp Pulse Resp BP Pulse Ox 04/03/19 12:17 95 20 152/89 97 04/03/19 11:45 97 04/03/19 10:02 99.8 F H 92 20 132/101 95 Intake and Output 04/03/19 04/03/19 04/03/19 06:59 14:59 22:59 Output Total 150 Balance -150 Output: Urine 150 Straight 150 Other: Voiding Method Indwelling Catheter Weight 104.326 kg Head normocephalic Neck supple Lungs clear to auscultation bilaterally no wheezing or crackles Heart regular rate and rhythm S1-S2, no rub or gallop Abdomen is soft nontender nondistended positive bowel sounds no hepatosplenomegaly Extremities right [id number] amputation. Wound VAC in place. No evidence of cellulitis. Neuro patient is awake but nonverbal. She is not following commands. Results CBC & Chem 7: 04/03/19 10:10 04/03/19 10:10 Labs: Abnormal Lab Results - Last 24 Hours (Table) 04/03/19 04/03/19 04/03/19 Range/Units 10:10 10:10 10:10 RBC 3.43 L (3.80-5.40) m/uL Hgb 9.8 L D (11.4-16.0) gm/dL Hct 31.5 L (34.0-46.0) % RDW 16.7 H (11.5-15.5) % Neutrophils # 8.4 H (1.3-7.7) k/uL Lymphocytes # 0.8 L (1.0-4.8) k/uL ESR 97 H (0-20) mm/hr PT 53.6 H (9.0-12.0) sec INR 5.5 H* (<1.2) APTT 43.5 H (22.0-30.0) sec Carbon Dioxide 34 H (22-30) mmol/L BUN 36 H (7-17) mg/dL Creatinine 2.27 H (0.52-1.04) mg/dL Glucose 106 H (74-99) mg/dL Calcium 10.8 H (8.4-10.2) mg/dL C-Reactive Protein 21.2 H (<10.0) mg/L Urine Appearance (Clear) Urine Protein (Negative) Urine Blood (Negative) Ur Leukocyte Esterase (Negative) Urine RBC (0-5) /hpf Urine WBC (0-5) /hpf Urine WBC Clumps (None) /hpf Ur Squamous Epith Cells (0-4) /hpf Urine Bacteria (None) /hpf Urine Mucus (None) /hpf Urine Yeast (Budding) (None) /hpf 04/03/19 Range/Units 11:10 RBC (3.80-5.40) m/uL Hgb (11.4-16.0) gm/dL Hct (34.0-46.0) % RDW (11.5-15.5) % Neutrophils # (1.3-7.7) k/uL Lymphocytes # (1.0-4.8) k/uL ESR (0-20) mm/hr PT (9.0-12.0) sec INR (<1.2) APTT (22.0-30.0) sec Carbon Dioxide (22-30) mmol/L BUN (7-17) mg/dL Creatinine (0.52-1.04) mg/dL Glucose (74-99) mg/dL Calcium (8.4-10.2) mg/dL C-Reactive Protein (<10.0) mg/L Urine Appearance Turbid H (Clear) Urine Protein 1+ H (Negative) Urine Blood Moderate H (Negative) Ur Leukocyte Esterase Large H (Negative) Urine RBC 45 H (0-5) /hpf Urine WBC >182 H (0-5) /hpf Urine WBC Clumps Many H (None) /hpf Ur Squamous Epith Cells 17 H (0-4) /hpf Urine Bacteria Few H (None) /hpf Urine Mucus Rare H (None) /hpf Urine Yeast (Budding) Few H (None) /hpf Microbiology - Last 24 Hours (Table) 04/03/19 11:10 Urine Culture - Preliminary Urine,Voided Assessment and Plan Assessment: 1. Altered mental status changes: Exact etiology unclear. Possibly related to infectious process. Also computed tomography scan of the brain showing no acute intracranial abnormality but did reveal a vague a 6 mm cortical density in the anterior right frontal lobe. A small cavernoma or other vascular malformation or other small cortical lesion or difficult to exclude. We'll continue to monitor. 2. UTI: Urine culture pending. Continue with current antibiotics. Consult infectious disease 3. Urinary retention: Koehler catheter inserted in ER 4. 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 Currently on cefepime and daptomycin required a total of 6 weeks of treatment. X-ray showing questionable osteomyelitis of the femur. Consult infectious disease. Blood cultures are pending 5. Coagulopathy INR elevated at 5.5. Hold Coumadin. Continue to monitor PT/INRs 6. Acute kidney injury: Creatinine is 2.27. We'll hold Lasix. Patient given fluid bolus in the ER. We'll continue normal saline at 100 mL an hour 7. Anemia with known history of iron deficiency anemia and acute blood loss anemia due to her surgeries. Continue to monitor. Continue iron supplement and Aranesp 8. Hyperlipidemia continue with statin 9. 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 Coumadin currently on hold due to elevated INR 10. Essential hypertension continue the Norvasc GI prophylaxis Protonix Time with Patient: Greater than 30 (Greater than 50% of the total time spent in counseling and coordination of care. I performed an examination of the patient and discussed their management with the physician Motion Picture Set Up Worker. I have reviewed the Physician Motion Picture Set Up Worker's notes and agree with the documented findings and plan of care)
[2019-04-03] MEDS: CALCIUM CARB-VIT D 500MG-200UN 1 EACH TAB PO SCH (16:59)
[2019-04-03] MEDS: LORazepam 0.5 MG TAB PO SCH (16:59)
[2019-04-03] MEDS ORDERED: NON FORMULARY DRUG (Lactose-Reduced Food [Ensure Plus] 120 ML) PO SCH (21:00)
[2019-04-03 21:21] LABS: Glucose,Whole Blood 109 mg/dL (75-99)
[2019-04-03] MEDS: PRAVASTATIN SODIUM 20 MG TAB PO SCH (21:55)
[2019-04-03] MEDS: PARoxetine 10 MG TAB PO SCH (21:58)
[2019-04-03] MEDS: SENNOSIDES-DOCUSATE SODIUM 1 EACH TAB PO SCH (21:59)
--- NOTE | 2019-04-03 22:35 | CONS ---
CONSULTATION DATE OF SERVICE: 04/03/2019 REASON FOR CONSULTATION: Infection. HISTORY OF PRESENT ILLNESS: The patient is a 73-year-old female well known to my service in this patient who did have a history of right above-knee amputation for persistent nonhealing wound to the right knee area. The patient subsequently did develop skin necrosis to the right AKA stump for which the patient was transferred to [facility] and the patient did have extensive debridement of the skin necrosis with resultant wound. The patient was advised daptomycin and cefepime which the patient was currently getting. She was recently admitted to hospital after which the patient did pull out her PICC line. The PICC line was inserted. She was continued on daptomycin and cefepime and local wound care was switched over to the wound VAC. The patient has now been brought back to the [facility] ER from the halfway with evaluation of mental status changes. Apparently, this morning, the patient was noticed to be staring at the family member and not making any sense. There is no clear history of any fever or any chills or any nausea or any vomiting. On arrival to the ER, the patient did have a fever of 99.8. The patient's white count was normal at 10.4, INR was elevated at 5.5. Kidney function has been baseline. The patient did have a UA which shows large leukocyte esterase with more than 1-2 WBC and a budding yeast. The patient also had x- rays of the femur which did show subperiosteal reaction of the distal femoral diaphysis at the level above the knee amputation site. The patient has been admitted to the hospital. She was continued on cefepime and daptomycin. Infectious disease has been consulted for further recommendations regarding antibiotic therapy. At the time of my evaluation, she did respond to her name, however did not answer any other questions. The patient did notice to be in respiratory distress and no vomiting has been reported or any diarrhea. History remains to be limited in view of the above fact. REVIEW OF SYSTEMS: Positive points have been mentioned in HPI. Complete review could not be obtained. PAST MEDICAL HISTORY: Gastroesophageal reflux disease, hypertension, osteoarthritis, pulmonary embolism, persistent infection to the right knee requiring right wriqi-[id number] amputation, previous history of VRE infection. PAST SURGICAL HISTORY: Hysterectomy, joint replacement, tubal ligation and right [id number]-[id number]-bzny amputation. SOCIAL HISTORY: Current halfway resident. No history of smoking, drinking or drug use. FAMILY HISTORY: Brother with history of oral cancer and congestive heart failure. Father with history of congestive heart failure, hyperlipidemia. ALLERGIES: TO MULTIPLE MEDICATIONS INCLUDING DOXYCYCLINE, CARBAMAZEPINE, ADHESIVE TAPES. MEDICATIONS: Currently include the patient is currently on cefepime 2 g q.24h. He is on daptomycin, Norvasc, Zyloprim, Tylenol, aspirin, Valium, Benadryl, iron sulfate, Imdur, Imodium, Toprol-XL, Narcan, Zofran, Protonix, Paxil and Pravastatin. PHYSICAL EXAMINATION: Blood pressure is 157/86, pulse of 95, temperature of 99.8. She is 97% on room air. General description is an elderly female lying in bed in no distress. No tachypnea or accessory muscles of respiration use. HEENT: Shows slight pallor. No scleral icterus. Oral mucosa membranes are dry. No pharyngeal erythema or thrush. NECK: Trachea central. No thyromegaly. LUNGS unlabored breathing. Clear to auscultation anteriorly. No wheeze or crackles. HEART S1, S2. Regular rate and rhythm. ABDOMEN: Soft. No tenderness. No guarding or rigidity. EXTREMITIES: Right AKA stump is currently covered with wound VAC with no surrounding swelling or redness. NEUROLOGICAL: Patient is slightly lethargic, though responds to her name. No complete neurological exam could be completed. LABS: Hemoglobin 9.1, white count 10.4 and is INR 5.5, BUN of 36, creatinine is 2.27. Liver enzymes are normal. UA has been positive. DIAGNOSTIC IMPRESSION AND PLAN: Patient admitted to the hospital with mental status changes in this patient who did have a history of right above knee amputation stump necrosis requiring extensive debridement and wound VAC placement, that site currently covered with wound VAC with no surrounding cellulitis. The patient did have a positive urinalysis, source could have been a symptomatic urinary tract infection. PLAN: 1. We will add Diflucan 12 mg IV piggyback daily. 2. We will keep the patient on daptomycin and cefepime. 3. Gentle IV fluid. 4. We will follow up on clinical condition and culture to further adjust medication if needed. Thank you for this consultation, we will follow this patient along with you. MMODL / IJN: [id number] /
[2019-04-04] MEDS ORDERED: FUROSEMIDE 40 MG TAB PO SCH (06:00)
[2019-04-04 08:23] LABS: INR 4.5 (<1.2); Prothrombin Time 43.5 sec (9.0-12.0)
[2019-04-04 08:29] LABS: Albumin 3.2 g/dL (3.5-5.0); Calcium 9.7 mg/dL (8.4-10.2); Potassium 3.4 mmol/L (3.5-5.1); Total Bilirubin 0.6 mg/dL (0.2-1.3); Total Protein 6.2 g/dL (6.3-8.2)
[2019-04-04 08:31] LABS: Anisocytosis Slight; Basophils # (A) 0.1 k/uL (0-0.2); Basophils % (A) 1 %; Eosinophils # (A) 0.2 k/uL (0-0.7); Eosinophils % (A) 1 %; HCT 25.7 % (34.0-46.0); Hypochromasia Marked; Lymphocytes # (A) 1.1 k/uL (1.0-4.8); Lymphocytes % (A) 8 %; MCH 29.9 pg (25.0-35.0); MCHC 31.5 g/dL (31.0-37.0); MCV 94.9 fL (80.0-100.0); Mean Platelet Volume 7.7; Monocytes # (A) 0.6 k/uL (0-1.0); Monocytes % (A) 4 %; Neutrophils % (A) 84 %; Platelet Count 412 k/uL (150-450); RBC 2.71 m/uL (3.80-5.40); RDW 17.1 % (11.5-15.5); WBC 13.1 k/uL (3.8-10.6)
[2019-04-04 08:32] LABS: HGB 8.1 gm/dL (11.4-16.0)
[2019-04-04] MEDS: PANTOPRAZOLE 40 MG/10 ML VIAL IV SCH (08:49)
[2019-04-04] MEDS ORDERED: DAPTOmycin 500 MG VIAL IV SCH (09:00)
[2019-04-04] MEDS ORDERED: METOPROLOL TARTRATE 5 MG/5 ML VIAL IVP STA (10:35)
[2019-04-04] MEDS ORDERED: POTASSIUM CHLORIDE 20 MEQ in WATER FOR INJECTION 1 100ML.BAG IVPB STA (10:38)
[2019-04-04] MEDS: LORazepam 0.5 MG TAB PO SCH ×2 (10:45→17:01)
[2019-04-04] MEDS: ASPIRIN 325 MG TAB PO SCH (10:45)
[2019-04-04] MEDS: SENNOSIDES-DOCUSATE SODIUM 1 EACH TAB PO SCH ×2 (10:45→20:25)
[2019-04-04] MEDS: PARoxetine 10 MG TAB PO SCH ×2 (10:45→20:25)
[2019-04-04] MEDS: CALCIUM CARB-VIT D 500MG-200UN 1 EACH TAB PO SCH ×2 (10:45→16:58)
[2019-04-04] MEDS: ISOSORBIDE MONONITRATE ER 30 MG TAB.ER.24H PO SCH (10:45)
[2019-04-04] MEDS: FERROUS SULFATE 325 MG TAB PO SCH (10:45)
[2019-04-04] MEDS: amLODIPine 5 MG TAB PO SCH (10:45)
[2019-04-04] MEDS: ALLOPURINOL 300 MG TAB PO SCH (10:45)
[2019-04-04] MEDS: MULTIVITAMINS, THERA 1 EACH TAB PO SCH (10:46)
[2019-04-04] MEDS: PYRIDOXINE 50 MG TAB PO SCH (10:46)
[2019-04-04] MEDS: METOPROLOL SUCCINATE (ER) 25 MG TAB.ER.24H PO SCH (10:46)
[2019-04-04] MEDS: CEFEPIME 2 GM in SODIUM CHLORIDE 0.9% 100 ML IVPB SCH (12:28)
[2019-04-04] MEDS ORDERED: SODIUM CHLORIDE 0.9% 1,000 ML IV SCH (14:15)
[2019-04-04 15:09] LABS: VBG PH 7.5 (7.31-7.41)
[2019-04-04 15:19] LABS: Anisocytosis Slight; Basophils # (A) 0.1 k/uL (0-0.2); Basophils % (A) 1 %; Eosinophils # (A) 0.1 k/uL (0-0.7); Eosinophils % (A) 1 %; HCT 22.1 % (34.0-46.0); Hypochromasia Marked; Lymphocytes # (A) 1.2 k/uL (1.0-4.8); Lymphocytes % (A) 8 %; MCHC 31.2 g/dL (31.0-37.0); MCV 95.9 fL (80.0-100.0); Macrocytosis Slight; Mean Platelet Volume 7.4; Monocytes # (A) 0.7 k/uL (0-1.0); Monocytes % (A) 4 %; Neutrophils # (A) 12.4 k/uL (1.3-7.7); Neutrophils % (A) 84 %; Platelet Count 478 k/uL (150-450); RBC 2.31 m/uL (3.80-5.40); RDW 17.8 % (11.5-15.5); WBC 14.8 k/uL (3.8-10.6)
[2019-04-04 15:20] LABS: HGB 6.9 gm/dL (11.4-16.0)
--- NOTE | 2019-04-04 15:37 | P.PN ---
Subjective Progress Note Date: 04/04/19 This is a 73-year-old female who is presenting from [facility] with altered mental status changes. She has a complex medical history. She has a history of a right total knee arthroplasty in 2004. There is a component that was loosened in 2013 and she required revision and developed infection in that right knee. She also had a. However she required antibiotic spacer for over a year and and eventually had converted to a hinged knee prosthesis. She had vplah-zec-sude amputation done with Dr. Fischer on 02/13/2019 at [facility]. She had postoperative complications with skin necrosis on the stump. She was transferred to [facility] and underwent irrigation and debride ment of the wound and has wound VAC in place. Cultures had grown Pseudomonas and she was placed on cefepime and daptomycin for 6 weeks via PICC line. Patient was at [facility] receiving the IV antibiotics. She apparently started to become confused and tried to stand up. She is not following commands at this time her eyes are open she's awake and essentially nonverbal. She does not appear to recognize her or daughter. She had a low-grade temp 99.8. White count was normal. C-reactive protein elevated at 21.2. She was found to have evidence of urinary tract infection. Her cefepime and daptomycin have been restarted. She had evidence of urinary retention in the ER and did require a Koehler catheter replaced. Infectious disease has been placed on consult. X-ray of the femur head showed some sub-optimal periosteal reaction the distal formal diaphysis and above the knee amputation. This may be sequela subacute or chronic osteomyelitis. Patient had a computed tomography scan of the brain showing no acute abnormality. Patchy changes of chronic small vessel ischemic disease. Vague 6 mm cortical density anterior right frontal lobe presents on 03/18/2019 scan in retrospect. A small cavernoma or other vascular malformation or other small cortical lesion or difficult to exclude. Patient will be admitted to the hospital for altered mental status changes, UTI and possible osteomyelitis of the right femur. 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 She also has history of iron deficiency anemia. 04/04/2019 Patient remains as the ER hold. Her mental status has not improved. She is awake and alert and orientated to 0. She is not following commands. Patient's white count has increased to 13.1. She has been tachycardic with a heart rate into the 120s. A dose of IV metoprolol 5 mg was given. Patient has not been able to take any of her oral medications which did include oral metoprolol 25 mg daily. She's also been given another IV fluid bolus. This afternoon nurses notified me that patient has had 2 large black tarry stools. Hemoglobin was 8.1 this morning. Repeat stat CBC ordered. INR was down to 4.5. Creatinine is up to 2.56. We are working on trying to transfer patient to [facility] due to her altered mental status. There is no neurology available at this facility. Objective - Vital Signs Vital signs: Vital Signs Temp 97.1 F L 04/04/19 06:10 Pulse 124 H 04/04/19 10:02 Resp 18 04/04/19 10:02 BP 127/82 04/04/19 10:02 Pulse Ox 97 04/04/19 10:02 Intake & Output 04/03/19 04/04/19 04/04/19 18:59 06:59 18:59 Output Total 150 1050 Balance -150 -1050 Weight 104.326 kg Output: Urine 150 1050 Straight 150 Other: Voiding Method Indwelling Catheter Indwelling Catheter Indwelling Catheter - Exam Head normocephalic Neck supple Lungs clear to auscultation bilaterally no wheezing or crackles Heart regular rate and rhythm S1-S2, no rub or gallop Abdomen is soft nontender nondistended positive bowel sounds no hepatosplenomegaly Extremities no edema Neuro awake and orientated to 0. Unable to follow commands. - Labs CBC & Chem 7: 04/04/19 07:35 04/04/19 07:35 Labs: Abnormal Lab Results - Last 24 Hours (Table) 04/03/19 04/04/19 04/04/19 Range/Units 21:20 07:35 07:35 WBC 13.1 H (3.8-10.6) k/uL RBC 2.71 L (3.80-5.40) m/uL Hgb 8.1 L D (11.4-16.0) gm/dL Hct 25.7 L (34.0-46.0) % RDW 17.1 H (11.5-15.5) % Neutrophils # 11.0 H (1.3-7.7) k/uL PT 43.5 H (9.0-12.0) sec INR 4.5 H (<1.2) VBG pH (7.31-7.41) VBG pCO2 (37-51) mmHg Potassium (3.5-5.1) mmol/L Carbon Dioxide (22-30) mmol/L BUN (7-17) mg/dL Creatinine (0.52-1.04) mg/dL Glucose (74-99) mg/dL POC Glucose (mg/dL) 109 H (75-99) mg/dL Total Protein (6.3-8.2) g/dL Albumin (3.5-5.0) g/dL 04/04/19 04/04/19 Range/Units 07:35 14:48 WBC (3.8-10.6) k/uL RBC (3.80-5.40) m/uL Hgb (11.4-16.0) gm/dL Hct (34.0-46.0) % RDW (11.5-15.5) % Neutrophils # (1.3-7.7) k/uL PT (9.0-12.0) sec INR (<1.2) VBG pH 7.50 H (7.31-7.41) VBG pCO2 35 L (37-51) mmHg Potassium 3.4 L (3.5-5.1) mmol/L Carbon Dioxide 31 H (22-30) mmol/L BUN 64 H (7-17) mg/dL Creatinine 2.56 H (0.52-1.04) mg/dL Glucose 122 H (74-99) mg/dL POC Glucose (mg/dL) (75-99) mg/dL Total Protein 6.2 L (6.3-8.2) g/dL Albumin 3.2 L (3.5-5.0) g/dL Microbiology - Last 24 Hours (Table) 04/03/19 10:10 Blood Culture - Preliminary Blood No Growth after 24 hours 04/03/19 11:10 Urine Culture - Preliminary Urine,Voided Matilda albicans Assessment and Plan Assessment: 1. Altered mental status changes: Exact etiology unclear. Possibly related to infectious process. Also computed tomography scan of the brain showing no acute intracranial abnormality but did reveal a vague a 6 mm cortical density in the anterior right frontal lobe. A small cavernoma or other vascular malformation or other small cortical lesion or difficult to exclude. We'll continue to monitor. 2. UTI: Urine culture pending. Continue with current antibiotics. Consult infectious disease 3. Urinary retention: Koehler catheter inserted in ER 4. 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 Currently on cefepime and daptomycin required a total of 6 weeks of treatment. and has wound VAC. X-ray showing some subtle periosteal reaction of th distal femoral diaphysis at the above the knee amputation site. This may be sequela of subacute or chronic osteomyelitis. Connsult infectious disease. Blood cultures are pending 5. Coagulopathy INR elevated at 5.5. Hold Coumadin. Continue to monitor PT/INRs. INR 4.5 6. Acute kidney injury: Creatinine is 2.27. We'll hold Lasix. Patient given fluid bolus in the ER. We'll continue normal saline at 100 mL an hour. Creatinine is up to 2.56 will give another fluid bolus 7. Anemia with known history of iron deficiency anemia and acute blood loss anemia due to her surgeries. Continue to monitor. Continue iron supplement and Aranesp 8. Hyperlipidemia continue with statin 9. 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 Coumadin currently on hold due to elevated INR 10. Essential hypertension continue the Norvasc 11. Hypokalemia: Patient received potassium supplement. Continue to monitor 12. Acute GI bleed: Patient has had 2 black tarry stools. Stat CBC revealed hemoglobin is 6.9. Patient will be transfused with 1 unit of blood. Check stool for occult blood.Coumadin is on hold. We'll give a dose of vitamin K 2.5 mg subcu 1. Continue to monitor PT/INRs 13. Sinus tachycardia: The patient did receive a dose of IV metoprolol since she is unable to take her oral metoprolol. Also received another IV fluid bolus. Heart rate had been in the 120s now it's around 111. Continue to monitor vitals. working on trying to transfer patient to [facility]. We will notify them of the patient's new vitals after fluid boluses completed. Also will notify them of the new findings of GI bleed with a hemoglobin of 6.9. At this time patient remains in the ER hold. She will be admitted to the ICU. Consult Dr. Sánchez for critical care management. GI prophylaxis Protonix I performed an examination of the patient and discussed their management with the physician Mixing Engineer. I have reviewed the Physician Mixing Engineer's notes and agree with the documented findings and plan of care
[2019-04-04 16:43] LABS: Glucose,Whole Blood 121 mg/dL (75-99)
[2019-04-04] MEDS ORDERED: PHYTONADIONE 5 MG in SODIUM CHLORIDE 0.9% 50 ML IVPB STA (17:51)
--- NOTE | 2019-04-04 19:18 | PN ---
PROGRESS NOTE DATE OF SERVICE: 04/04/2019 REASON FOR FOLLOWUP: 1. Urinary tract infection. 2. Right AKA infected wound. INTERVAL HISTORY: The patient is afebrile. The patient remains to be slightly sleepy and lethargic and did not answer any questions. She is currently on room air. No vomiting or any diarrhea has been reported. PHYSICAL EXAMINATION: On examination, blood pressure is 127/82 with a pulse of 124, temperature 97.1. She is 97% on room air. General description is an elderly female lying in bed in no distress. Respiratory system: Unlabored breathing. Clear to auscultation anteriorly. Heart: S1, S2. Regular rate and rhythm. Abdomen: Soft. No tenderness. Right AKA wound looks pretty clean with no significant slough tissue. No surrounding redness or any drainage. LABS: Creatinine is 2.56, white count of 13.1. DIAGNOSTIC IMPRESSION AND PLAN: 1. Patient admitted to hospital with mental status changes with concern for a urinary tract infection. Urine is showing Matilda and the patient is covered with Diflucan; to continue. 2. Patient with right bkegc-xauq-eutcbmorny wound with possible secondary cellulitis. Patient is currently covered with daptomycin and cefepime; to continue. Local wound care with a wound V.A.C. and monitor clinical course closely. MMODL / IJN: [id number] /
[2019-04-04] MEDS: PRAVASTATIN SODIUM 20 MG TAB PO SCH (20:25)
--- NOTE | 2019-04-04 20:25 | CT ---
EXAMINATION TYPE: CT brain wo con DATE OF EXAM: 04/04/2019 COMPARISON: 04/03/2019 HISTORY: ams CT DLP: 1137.4 mGycm Automated exposure control for dose reduction was used. There is cerebral cortical atrophy. There is no mass effect nor midline shift. There is no sign of in tracranial hemorrhage. The calvarium is intact. IMPRESSION: Cerebral atrophy. No acute intracranial abnormality. No change.
[2019-04-04 20:32] LABS: Glucose,Whole Blood 119 mg/dL (75-99)
[2019-04-05] MEDS: CEFEPIME 2 GM in SODIUM CHLORIDE 0.9% 100 ML IVPB SCH (05:43)
[2019-04-05 06:24] LABS: Anisocytosis Slight; Basophils # (A) 0.1 k/uL (0-0.2); Basophils % (A) 1 %; Eosinophils # (A) 0.4 k/uL (0-0.7); Eosinophils % (A) 3 %; Hypochromasia Marked; Lymphocytes # (A) 1.2 k/uL (1.0-4.8); Lymphocytes % (A) 11 %; MCH 30.1 pg (25.0-35.0); MCHC 31.2 g/dL (31.0-37.0); MCV 96.4 fL (80.0-100.0); Macrocytosis Slight; Mean Platelet Volume 7.6; Monocytes # (A) 0.4 k/uL (0-1.0); Monocytes % (A) 4 %; Neutrophils # (A) 8.5 k/uL (1.3-7.7); Neutrophils % (A) 80 %; Platelet Count 328 k/uL (150-450); RBC 1.98 m/uL (3.80-5.40); RDW 18.5 % (11.5-15.5); WBC 10.7 k/uL (3.8-10.6)
[2019-04-05 06:34] LABS: Glucose,Whole Blood 129 mg/dL (75-99)
[2019-04-05 06:47] LABS: Albumin 2.5 g/dL (3.5-5.0); Calcium 8.4 mg/dL (8.4-10.2); Potassium 3.4 mmol/L (3.5-5.1); Total Bilirubin 0.5 mg/dL (0.2-1.3); Total Protein 5.2 g/dL (6.3-8.2)
[2019-04-05 06:49] LABS: INR 1.6 (<1.2); Prothrombin Time 15.9 sec (9.0-12.0)
[2019-04-05 06:51] LABS: HGB 5.9 gm/dL (11.4-16.0)
[2019-04-05 06:53] LABS: HCT 19.1 % (34.0-46.0)
[2019-04-05] MEDS: FERROUS SULFATE 325 MG TAB PO SCH (08:07)
[2019-04-05] MEDS: ASPIRIN 325 MG TAB PO SCH (08:07)
[2019-04-05] MEDS: amLODIPine 5 MG TAB PO SCH (08:07)
[2019-04-05] MEDS: CALCIUM CARB-VIT D 500MG-200UN 1 EACH TAB PO SCH (08:07)
[2019-04-05] MEDS: LORazepam 0.5 MG TAB PO SCH (08:07)
[2019-04-05] MEDS: ALLOPURINOL 300 MG TAB PO SCH (08:07)
[2019-04-05] MEDS: ISOSORBIDE MONONITRATE ER 30 MG TAB.ER.24H PO SCH (08:07)
[2019-04-05] MEDS: PYRIDOXINE 50 MG TAB PO SCH (08:08)
[2019-04-05] MEDS: MULTIVITAMINS, THERA 1 EACH TAB PO SCH (08:08)
[2019-04-05] MEDS: PARoxetine 10 MG TAB PO SCH (08:08)
[2019-04-05] MEDS: METOPROLOL SUCCINATE (ER) 25 MG TAB.ER.24H PO SCH (08:08)
[2019-04-05] MEDS: SENNOSIDES-DOCUSATE SODIUM 1 EACH TAB PO SCH (08:08)
[2019-04-05] MEDS ORDERED: DARBEPOETIN ALFA 60 MCG/0.3 ML SYRINGE SQ SCH (09:00)
[2019-04-05] MEDS ORDERED: MORPHINE SULFATE 2 MG/ML SYRINGE IVP PRN (09:18)
[2019-04-05] MEDS ORDERED: SODIUM CHLORIDE 0.45% 1,000 ML IV SCH (09:30)
[2019-04-05] MEDS ORDERED: FLUCONAZOLE IN NACL,ISO-OSM 200 MG in SALINE 1 100ML.BAG IVPB SCH (09:30)
--- NOTE | 2019-04-05 09:31 | P.CNPUL ---
History of Present Illness Consult date: 04/05/19 Chief complaint: Altered mental status, GI bleed History of present illness: This is a 73-year-old female who is presenting from [facility] with altered mental status changes. The patient was admitted to the hospital on 04/03/2019 under the care of Dr. Villarreal She got transferred to the intensive care unit because of ongoing altered mental status and GI bleed and developed over the past 24 hours. In summary, this patient has complex medical history. She has a history of a right total knee arthroplasty in 2004. There is a component that was loosened in 2013 and she required revision and developed infection in that right knee. She also had a. However she required antibiotic spacer for over a year and and eventually had converted to a hinged knee prosthesis. She had [id number] amputation done with Dr. Fischer on 02/13/2019 at [facility]. She had postoperative complications with skin necrosis on the stump. She was transferred to [facility] and underwent irrigation and debridement of the wound and has wound VAC in place. Cultures had grown Pseudomonas and she was placed on cefepime and daptomycin for 6 weeks via PICC line. Patient was at [facility] receiving the IV antibiotics. She apparently started to become confused and tried to stand up. She is not following commands at this time her eyes are open she's awake and essentially nonverbal. She does not appear to recognize her or daughter. She had a low-grade temp 99.8. White count was normal. C-reactive protein elevated at 21.2. She was found to have evidence of urinary tract infection. Her cefepime and daptomycin have been restarted. She had evidence of urinary retention in the ER and did require a Koehler catheter replaced. Infectious disease has been placed on consult. X-ray of the femur head showed some sub-optimal periosteal reaction the distal formal diaphysis and above the knee amputation. This may be sequela subacute or chronic osteomyelitis. Patient had a computed tomography scan of the brain showing no acute abnormality. Patchy changes of chronic small vessel ischemic disease. Vague 6 mm cortical density anterior right frontal lobe presents on 03/18/2019 scan in retrospect. A small cavernoma or other vascular malformation or other small cortical lesion or difficult to exclude. Patient will be admitted to the hospital for altered mental status changes, UTI and possible osteomyelitis of the right femur. 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 She also has history of iron deficiency anemia. In terms of mental status, the patient is unable to fully conversation. She moans. She is following some simple commands such as squeezing and moving her extremities. Nevertheless, she is not communicating effectively and this is a change compared to her baseline mental status. She has had 2 CAT scans. The first CAT scan of the brain was noted and the second CAT scan of the brain was done overnight which showed no acute abnormalities and the findings are esse ntially stable. Meanwhile, the patient started having episodes of GI bleed. She is having melanotic stools on multiple occasions. Overall, she had a total of 6 bowel movements. Her hemoglobin was 9.8 at time of admission is currently down to explain 6.9. The patient has already received a unit of packed RBC and the second unit is running. At the time of my evaluation this morning it witnessed another melanotic bowel movement in this patient. She was coagulopathic yesterday. Her INR was at 4.5 and she was given a total of 5 of vitamin K and INR is down to 1.6. Her sodium level is at 149 and the patient was given a liter of IV fluid bolus. The BUN is at 6 with a creatinine of 2.3 and this is consistent with chronic kidney disease. The BUN is up to 69 indicating the possibility of an upper GI bleed. She is nothing by mouth for now. She has been on IV Protonix. The patient is also on broad-spectrum antibiotics utilizing a combination of daptomycin and cefepime. The right stump was inspected. Overall it looks quite clean with granulation tissue at its healthy at the base. There is some oozing of bloody material from the edge of the stump in addition to some areas of necrotic greenish areas that may need to be further debrided. She has also developed a rash in his bath oxygen which is quite expensive the related to yeast along with some skin excoriation. The patient also has an abnormal UA with cultures indicating Matilda. As such we'll may have a matilda urine checked infection along with possibility of a soft tissue infection. She is hemodynamically stable. Her blood pressures the sense and well-maintained without any pressors. She is slightly tachycardic and this can be related to the GI bleed. Review of Systems ROS unobtainable: due to mental status Past Medical History Past Medical History: Deep Vein Thrombosis (DVT), Eye Disorder, GERD/Reflux, Hypertension, Osteoarthritis (OA), Pulmonary Embolus (PE) Additional Past Medical History / Comment(s): DDD, gastroenteritis, h-pylori, gout, TMJ, bulging discs, left eye blind, macular degeneration BL eyes, multiple falls (not recent), transfers w/ walker to wheelchair, chronic UTI, osteoporos is, hypoglycemia chronic osteomyelitis of the right femur and infection of the above-knee amputation stump History of Any Multi-Drug Resistant Organisms: VRE Date of last positivie culture/infection: August 2013 MDRO Source:: Right knee Past Surgical History: Hysterectomy, Joint Replacement, Orthopedic Surgery, Tubal Ligation Additional Past Surgical History / Comment(s): Sternocleidomastoidectomy (right), right shoulder rotator cuff, rectocele/cystocele, right foot - Varma's neuroma/hammer toe, left outer forearm arthroscopy and shortening left ulna - plates and screws inserted, right wrist bundle of nerves , right knee arthroscopy/realignment of tendon/tibia/kneecap, 07-20-13 right knee replacement, 08-10-13 large hematoma removed, BL vitrectomies, BL cataract surgery, right right femur benign tumor removed, left foot bone spur. Right AKA done on Feb 13 per Pt of this year. Past Anesthesia/Blood Transfusion Reactions: Postoperative Nausea & Vomiting (PONV) Additional Past Anesthesia/Blood Transfusion Reaction / Comment(s): no complications with prior blood transfusion Past Psychological History: Anxiety, Depression Additional Psychological History / Comment(s): From [facility] Smoking Status: Former smoker Past Alcohol Use History: None Reported Past Drug Use History: None Reported - Past Family History Brother(s) Family Medical History: Cancer, Congestive Heart Failure (CHF) Additional Family Medical History / Comment(s): Heart problems, CABG, oral CA, pacemaker/defib. Father Family Medical History: Congestive Heart Failure (CHF), Hyperlipidemia, Hyperte nsion, Myocardial Infarction (CA) Additional Family Medical History / Comment(s): at 97 years old. Mother Family Medical History: Congestive Heart Failure (CHF), CVA/TIA Additional Family Medical History / Comment(s): Pacemaker - January 16 at age 94 a few days after CVA. Medications and Allergies Home Medications Medication Instructions Recorded Confirmed Type Allopurinol [Zyloprim] 300 mg PO DAILY@0900 08/21/14 04/03/19 History diphenhydrAMINE HCL [Benadryl] 25 mg PO HS PRN 08/21/14 04/03/19 History Multivitamins, Thera [Multivitamin 1 tab PO DAILY@0900 11/17/15 04/03/19 History (formulary)] amLODIPine [Norvasc] 5 mg PO DAILY@0900 07/03/16 04/03/19 History Acetaminophen Tab [Tylenol] 650 mg PO Q5H PRN 02/02/18 04/03/19 History Cyclobenzaprine [Flexeril] 10 mg PO BID PRN 02/02/18 04/03/19 History Isosorbide Mononitrate ER [Imdur] 30 mg PO DAILY@0900 02/02/18 04/03/19 History Pravastatin Sodium [Pravachol] 20 mg PO HS@209902/02/18 04/03/19 History PARoxetine HCL [Paxil] 30 mg PO BID@0900,2100 03/27/18 04/03/19 History Diazepam [Valium] 5 mg PO Q6H PRN 10/27/18 04/03/19 History Loperamide HCl [Loperamide] 2 mg PO Q6H PRN 10/27/18 04/03/19 History Acetaminophen-Codeine 300-30mg 1 tab PO Q6H PRN 03/18/19 04/03/19 History [Tylenol w/codeine #3] Aspirin 325 mg PO DAILY@0900 03/18/19 04/03/19 History Calcium Carbonate/Vitamin D3 1 tab PO BID@0900,1700 03/18/19 04/03/19 History [Calcium 600-Vit D3 400 Tablet] Cefepime HCl [Maxipime] 2 gm IV Q8H 03/18/19 04/03/19 History DAPTOmycin [Cubicin] 700 mg IV DAILY@0900 03/18/19 04/03/19 History LORazepam [Ativan] 0.5 mg PO BID@0900,1700 03/18/19 04/03/19 History Lactose-Reduced Food [Ensure Plus] 120 ml PO BID@0900,2100 03/18/19 04/03/19 History Metoprolol Succinate (ER) [Toprol 25 mg PO DAILY@0900 03/18/19 04/03/19 History XL] Omeprazole [PriLOSEC] 10 mg PO BID PRN 03/18/19 04/03/19 History Ondansetron HCl [Zofran] 4 mg PO Q6H PRN 03/18/19 04/03/19 History Sennosides/Docusate Sodium [Senna 1 tab PO BID@0900,2100 03/18/19 04/03/19 History Plus 8.6-50 mg Tablet] Warfarin Sodium [Coumadin] 4 mg PO DAILY@1700 03/18/19 04/03/19 History Ferrous Sulfate [Feosol] 325 mg PO DAILY 30 Days #30 tab 03/27/19 04/03/19 Rx Pyridoxine [Vitamin B-6] 50 mg PO DAILY tab 03/27/19 04/03/19 Rx Darbepoetin Raj [Aranesp] 60 mcg SQ WE 04/03/19 04/03/19 History Furosemide [Lasix] 40 mg PO DAILY@0600 04/03/19 04/03/19 History Allergies Allergy/AdvReac Type Severity Reaction Status Date / Time adhesive Allergy Rash/Hives Verified 04/03/19 10:32 carbamazepine [From Tegretol] Allergy Rash/Hives Verified 04/03/19 10:32 carisoprodol [From Soma] Allergy lowers b/p Verified 04/03/19 10:32 quickly & passes out corn Allergy Unknown Verified 04/03/19 10:32 doxycycline calcium Allergy Rash/Hives Verified 04/03/19 10:32 [From Vibramycin] doxycycline hyclate Allergy Rash/Hives,vomited Verified 04/03/19 10:32 [From Vibramycin] blood doxycycline monohydrate Allergy Rash/Hives,vomited Verified 04/03/19 10:32 [From Vibramycin] blood erythromycin base Allergy Rash/Hives,vomited Verified 04/03/19 10:32 [From E-Mycin] blood hydrocodone bitartrate Allergy abdominal Verified 04/03/19 10:32 [From Vicodin] pain, diarrhea milk Allergy Unknown Verified 04/03/19 10:32 NSAIDS (Non-Steroidal Allergy Swelling Verified 04/03/19 10:32 Anti-Inflamma piroxicam [From Feldene] Allergy Swelling Verified 04/03/19 10:32 ciprofloxacin [From Cipro] AdvReac Nausea & Verified 04/03/19 10:32 Vomiting wheat AdvReac Diarrhea Verified 04/03/19 10:32 Physical Exam Vitals: Vital Signs Temp Pulse Resp BP Pulse Ox 04/05/19 09:04 98.3 F 114 H 16 135/68 04/05/19 08:00 98.4 F 112 H 15 151/69 97 04/05/19 07:59 98.4 F 111 H 14 135/76 04/05/19 07:30 109 H 12 156/69 96 04/05/19 07:29 98.5 F 111 H 14 151/69 95 04/05/19 07:19 98.5 F 111 H 14 156/69 04/05/19 07:00 113 H 19 142/67 94 L 04/05/19 06:30 112 H 20 144/70 92 L 04/05/19 06:00 108 H 23 140/76 97 04/05/19 05:30 109 H 12 154/73 95 04/05/19 05:00 113 H 19 140/73 95 04/05/19 04:30 109 H 21 144/75 92 L 04/05/19 04:00 97.9 F 112 H 12 139/72 95 04/05/19 03:30 113 H 21 141/72 93 L 04/05/19 03:00 113 H 20 154/89 92 L 04/05/19 02:30 113 H 12 139/73 97 04/05/19 02:00 112 H 19 143/74 93 L 04/05/19 01:30 108 H 21 145/72 96 04/05/19 01:00 111 H 22 130/72 96 04/05/19 00:30 109 H 23 147/74 92 L 04/05/19 00:00 98 F 114 H 15 146/101 96 04/04/19 23:30 109 H 14 141/77 95 04/04/19 23:00 106 H 19 157/73 96 04/04/19 22:30 107 H 22 152/74 95 04/04/19 22:00 107 H 17 132/100 96 04/04/19 21:30 106 H 12 146/95 96 01/07/20 21:00 106 H 13 154/78 97 04/04/19 20:30 107 H 20 146/92 95 04/04/19 20:00 98.8 F 105 H 18 145/76 98 04/04/19 19:30 106 H 11 L 147/74 98 04/04/19 19:00 104 H 16 161/70 97 04/04/19 18:30 108 H 23 139/74 98 04/04/19 18:00 107 H 17 161/70 96 04/04/19 17:30 106 H 15 145/72 100 04/04/19 17:00 98.4 F 101 H 24 155/76 97 04/04/19 14:00 108 H 18 145/82 96 04/04/19 10:02 124 H 18 127/82 97 Intake and Output 04/04/19 04/05/19 04/05/19 22:59 06:59 14:59 Intake Total 500 900 20 Output Total 480 420 50 Balance 20 480 -30 Intake: IV 500 900 20 .9 200 20 Sodium Chloride 0.9% 1, 500 700 000 ml @ 100 mls/hr IV . Q10H STA Rx#:[id number] Blood Product 0 Rc As-1 Unit 0 [id number] Output: Urine 480 420 50 Straight 150 Other: Voiding Method Indwelling Catheter Indwelling Catheter # Bowel Movements 1 1 Weight 104.326 kg 110.3 kg Had appearance, comfortable likely distress, she is altered mentation. I think she is slightly better compared to yesterday. She is able to follow some simple commands. Nevertheless she still unable to hold a conversation. The neurologic exam is nonfocal at this point in time. Head exam was generally normal. There was no scleral icterus or corneal arcus. Mucous membranes were moist. Neck was supple and without jugular venous distension, thyromegaly, or carotid bruits. Carotids were easily palpable bilaterally. There was no adenopathy. Lungs sounds are diminished in the lung bases bilaterally Cardiac exam revealed the PMI to be normally situated and sized. The rhythm was regular and no extrasystoles were noted during several minutes of auscultation. The first and second heart sounds were normal and physiologic splitting of the s econd heart sound was noted. There were no murmurs, rubs, clicks, or gallops. Abdomen is obese soft nontender. No direct tenderness no rebound tensile guarding. No organomegaly. No ascites. Extremities the patient has a above-knee amputation the right lower extremity. The stump itself is draining minimal amount of serous and occasionally bloody material. In general the stump bases healthy and there is good granulation tissue. There are some areas of necrosis with probably some residual infection in the stump base that may need to be further debrided. The stump is exposed right now. The wound VAC has been removed. Left lower extremity shows trace edema. No cyanosis or clubbing. Diminished pulses in all 4 extremities. Neurologically the patient moving all 4 extremities upon demand. No facial asymmetry. Pupils are equal and reactive to light. No agitation. She is not conversing for now. She is moaning on and off. No neck stiffness. Results - Laboratory Findings CBC and BMP: 04/05/19 06:00 04/05/19 06:00 PT/INR, D-dimer PT 15.9 sec (9.0-12.0) H 04/05/19 06:00 INR 1.6 (<1.2) H 04/05/19 06:00 Abnormal lab findings: Abnormal Labs 04/03/19 04/03/19 04/03/19 10:10 10:10 10:10 WBC RBC 3.43 L Hgb 9.8 L D Hct 31.5 L RDW 16.7 H Plt Count Neutrophils # 8.4 H Lymphocytes # 0.8 L ESR 97 H PT 53.6 H INR 5.5 H* APTT 43.5 H VBG pH VBG pCO2 Sodium Potassium Chloride Carbon Dioxide 34 H BUN 36 H Creatinine 2.27 H Glucose 106 H POC Glucose (mg/dL) Calcium 10.8 H C-Reactive Protein 21.2 H Total Protein Albumin Urine Appearance Urine Protein Urine Blood Ur Leukocyte Esterase Urine RBC Urine WBC Urine WBC Clumps Ur Squamous Epith Cells Urine Bacteria Urine Mucus Urine Yeast (Budding) Stool Occult Blood Crossmatch Blood Bank Comment 04/03/19 04/03/19 04/04/19 11:10 21:20 07:35 WBC 13.1 H RBC 2.71 L Hgb 8.1 L D Hct 25.7 L RDW 17.1 H Plt Count Neutrophils # 11.0 H Lymphocytes # ESR PT INR APTT VBG pH VBG pCO2 Sodium Potassium Chloride Carbon Dioxide BUN Creatinine Glucose POC Glucose (mg/dL) 109 H Calcium C-Reactive Protein Total Protein Albumin Urine Appearance Turbid H Urine Protein 1+ H Urine Blood Moderate H Ur Leukocyte Esterase Large H Urine RBC 45 H Urine WBC >182 H Urine WBC Clumps Many H Ur Squamous Epith Cells 17 H Urine Bacteria Few H Urine Mucus Rare H Urine Yeast (Budding) Few H Stool Occult Blood Crossmatch Blood Bank Comment 04/04/19 04/04/19 04/04/19 07:35 07:35 14:17 WBC RBC Hgb Hct RDW Plt Count Neutrophils # Lymphocytes # ESR PT 43.5 H INR 4.5 H APTT VBG pH VBG pCO2 Sodium Potassium 3.4 L Chloride Carbon Dioxide 31 H BUN 64 H Creatinine 2.56 H Glucose 122 H POC Glucose (mg/dL) Calcium C-Reactive Protein Total Protein 6.2 L Albumin 3.2 L Urine Appearance Urine Protein Urine Blood Ur Leukocyte Esterase Urine RBC Urine WBC Urine WBC Clumps Ur Squamous Epith Cells Urine Bacteria Urine Mucus Urine Yeast (Budding) Stool Occult Blood Positive H Crossmatch Blood Bank Comment 04/04/19 04/04/19 04/04/19 14:48 14:48 16:37 WBC 14.8 H RBC 2.31 L Hgb 6.9 L* Hct 22.1 L RDW 17.8 H Plt Count 478 H Neutrophils # 12.4 H Lymphocytes # ESR PT INR APTT VBG pH 7.50 H VBG pCO2 35 L Sodium Potassium Chloride Carbon Dioxide BUN Creatinine Glucose POC Glucose (mg/dL) 121 H Calcium C-Reactive Protein Total Protein Albumin Urine Appearance Urine Protein Urine Blood Ur Leukocyte Esterase Urine RBC Urine WBC Urine WBC Clumps Ur Squamous Epith Cells Urine Bacteria Urine Mucus Urine Yeast (Budding) Stool Occult Blood Crossmatch Blood Bank Comment 04/04/19 04/04/19 04/05/19 16:49 20:30 06:00 WBC 10.7 H RBC 1.98 L Hgb 5.9 L* Hct 19.1 L* RDW 18.5 H Plt Count Neutrophils # 8.5 H Lymphocytes # ESR PT INR APTT VBG pH VBG pCO2 Sodium Potassium Chloride Carbon Dioxide BUN Creatinine Glucose POC Glucose (mg/dL) 119 H Calcium C-Reactive Protein Total Protein Albumin Urine Appearance Urine Protein Urine Blood Ur Leukocyte Esterase Urine RBC Urine WBC Urine WBC Clumps Ur Squamous Epith Cells Urine Bacteria Urine Mucus Urine Yeast (Budding) Stool Occult Blood Crossmatch See Detail Blood Bank Comment Sent to [facility] 04/05/19 04/05/19 04/05/19 06:00 06:00 06:33 WBC RBC Hgb Hct RDW Plt Count Neutrophils # Lymphocytes # ESR PT 15.9 H INR 1.6 H APTT VBG pH VBG pCO2 Sodium 149 H Potassium 3.4 L Chloride 117 H Carbon Dioxide BUN 69 H Creatinine 2.38 H Glucose 116 H POC Glucose (mg/dL) 129 H Calcium C-Reactive Protein Total Protein 5.2 L Albumin 2.5 L Urine Appearance Urine Protein Urine Blood Ur Leukocyte Esterase Urine RBC Urine WBC Urine WBC Clumps Ur Squamous Epith Cells Urine Bacteria Urine Mucus Urine Yeast (Budding) Stool Occult Blood Crossmatch Blood Bank Comment - Diagnostic Findings Chest x-ray: image reviewed Assessment and Plan Plan: 1. Altered mental status changes , still under investigation, could be related to metabolic encephalopathy. 2 [id number] CAT scan showed no acute abnormalities to explain her mental status change. I think it's related to metabolic encephalopathy related to underlying chronic infections and this is gradually improving. She is on broad-spectrum antibiotics for now. 2. Acute GI bleeding likely of an upper GI source. The patient's hemoglobin is down to 5.9. The patient is nothing by mouth. The patient IV Protonix. Coagulopathy was reversed and INR is down to 1.5. The patient was given 5 mg of vitamin K. She received a unit of packed RBC and the second is to follow. GI will be consulted. Stop anticoagulation for now. 3. Acute UTI related to matilda was suspected and Diflucan will be added 4. 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 Currently on cefepime and daptomycin required a total of 6 weeks of treatment. and has wound VAC. X-ray showing some subtle periosteal reaction of th distal femoral diaphysis at the above the knee amputation site. This may be sequela of subacute or chronic osteomyelitis. Connsult infectious disease. Blood cultures are pending 5. Coagulopathy INR elevated at 5.5 and this has been reversed post vitamin K insertion 6. Acute kidney injury , creatinine stable 7. Acute blood loss anemia on top of chronic anemia. The patient is having acute GI bleed and the hemoglobin dropped down to 5.9. Nevertheless the, the patient is chronic anemia with known history of iron deficiency anemia and acute blood loss anemia due to her surgeries. Continue to monitor. Continue iron supplement and Aranesp 8. Hyperlipidemia continue with statin 9. 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 10. Essential hypertension continue the Norvasc 11. Sinus tachycardia 12 morbid obesity with a BMI of 39.2 13 halfway resident as the patient was in [facility] on the [place] for further rehabilitation post debridement of an infected right lower extremity stump Plan IV fluids at the rate of at the rate of 100 mL an hour. She'll be switched to half-normal saline for some hypernatremia IV Protonix Complete units of packed RBC and immediate hemoglobin GI consultation Hold warfarin Vitamin K was given and INR is down to 1.5 Keep nothing by mouth Monitor hemodynamics Monitor mental status Add Diflucan Nystatin powder to the back Continue cefepime and daptomycin and consider reinstating the wound VAC. ID is on the case She is on room air oxygen We'll continue to follow
[2019-04-05] MEDS ORDERED: NYSTATIN 100,000 UNIT/GM OINT 30 GM TUBE TOPICAL SCH (09:45)
[2019-04-05] MEDS: POTASSIUM CHLORIDE 10 MEQ in WATER FOR INJECTION 1 100ML.BAG IVPB SCH ×2 (09:47→11:17)
[2019-04-05] MEDS: PANTOPRAZOLE 40 MG/10 ML VIAL IV SCH (09:47)
[2019-04-05] MEDS ORDERED: METOPROLOL TARTRATE 5 MG/5 ML VIAL IVP SCH (12:00)
[2019-04-05 12:38] VITALS: TEMP 98.5
--- NOTE | 2019-04-05 13:11 | P.DS ---
Providers Date of admission: 04/03/19 13:30 Expected date of discharge: 04/05/19 Attending physician: Gage Gastelum Consults: 04/03/19 13:32 Consult Physician Urgent Consulting Provider: Paz Carr Consult Reason/Comments: infections Do you want consulting provider notified?: Yes 04/04/19 15:29 Consult Physician Routine Consulting Provider: Darlene Sánchez Consult Reason/Comments: critical management Do you want consulting provider notified?: Yes 04/05/19 09:30 Consult Physician Urgent Consulting Provider: Riki Flores Consult Reason/Comments: GI blood loss anemia Do you want consulting provider notified?: Yes Primary care physician: Gage Oriana [facility] Course: Discharge diagnosis 1. Altered mental status changes: Exact etiology unclear. Possibly related to infectious process. Also computed tomography scan of the brain showing no acute intracranial abnormality but did reveal a vague a 6 mm cortical density in the anterior right frontal lobe. A small cavernoma or other vascular malformation or other small cortical lesion or difficult to exclude. We'll continue to monitor. 2. UTI: Urine culture pending. Continue with current antibiotics. Consult infectious disease 3. Urinary retention: Koehler catheter inserted in ER 4. 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 Currently on cefepime and daptomycin required a total of 6 weeks of treatment. and has wound VAC. X-ray showing some subtle periosteal reaction of th distal femoral diaphysis at the above the knee amputation site. This may be sequela of subacute or chronic osteomyelitis. Connsult infectious disease. Blood cultures are pending 5. Coagulopathy INR elevated at 5.5. Hold Coumadin. Continue to monitor PT/INRs. INR 4.5 . Repeat INR 1.5 6. Acute kidney injury: Creatinine is 2.27. We'll hold Lasix. Patient given fluid bolus in the ER. We'll continue normal saline at 100 mL an hour. Creatinine is up to 2.56 will give another fluid bolus 7. Anemia with known history of iron deficiency anemia and acute blood loss anemia due to her surgeries. Continue to monitor. Continue iron supplement and Aranesp 8. Hyperlipidemia continue with statin 9. 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 Coumadin currently on hold due to elevated INR 10. Essential hypertension continue the Norvasc 11. Hypokalemia: Patient received potassium supplement. Continue to monitor 12. Acute GI bleed: Patient has had 2 black tarry stools. Stat CBC revealed hemoglobin is 6.9. Patient will be transfused with 1 unit of blood. Check stool for occult blood.Coumadin is on hold. We'll give a dose of vitamin K 2.5 mg subcu 1. Continue to monitor PT/INRs. Patient to receive 2 units of PRBCs 13. Sinus tachycardia: The patient did receive a dose of IV metoprolol since she is unable to take her oral metoprolol. Also received another IV fluid bolus. Heart rate had been in the 120s now it's around 111. Continue to monitor vitals. Heart rate is improving Lopressor ordered IV per critical care team due to patient being nothing by mouth Hospital course This is a 73-year-old female who is presenting from [facility] with altered mental status changes. She has a complex medical history. She has a history of a right total knee arthroplasty in 2004. There is a component that was loosened in 2013 and she required revision and developed infection in that right knee. She also had a. However she required antibiotic spacer for over a year and and eventually had converted to a hinged knee prosthesis. She had [id number] amputation done with Dr. Fischer on 02/13/[address] [facility]. She had postoperative complications with skin necrosis on the stump. She was transferred to [facility] and underwent irrigation and debridement of the wound and has wound VAC in place. Cultures had grown Pseudomonas and she was placed on cefepime and daptomycin for 6 weeks via PICC line. Patient was at [facility] receiving the IV antibiotics. She apparently started to become confused and tried to stand up. She is not following commands at this time her eyes are open she's awake and essentially nonverbal. She does not appear to recognize her or daughter. She had a low-grade temp 99.8. White count was normal. C-reactive protein elevated at 21.2. She was found to have evidence of urinary tract infection. Her cefepime and daptomycin have been restarted. She had evidence of urinary retention in the ER and did require a Koehler catheter replaced. Infectious disease has been placed on consult. X-ray of the femur head showed some sub-optimal periosteal reaction the distal formal diaphysis and above the knee amputation. This may be sequela subacute or chronic osteomyelitis. Patient had a computed tomography scan of the brain showing no acute abnormality. Patchy changes of chronic small vessel ischemic disease. Vague 6 mm cortical density anterior right frontal lobe presents on 03/18/2019 scan in retrospect. A small cavernoma or other vascular malformation or other small cortical lesion or difficult to exclude. Patient will be admitted to the hospital for altered mental status changes, UTI and possible osteomyelitis of the right femur. 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 She also has history of iron deficiency anemia. 04/04/2019 Patient remains as the ER hold. Her mental status has not improved. She is awake and alert and orientated to 0. She is not following commands. Patient's white count has increased to 13.1. She has been tachycardic with a heart rate into the 120s. A dose of IV metoprolol 5 mg was given. Patient has not been able to take any of her oral medications which did include oral metoprolol 25 mg daily. She's also been given another IV fluid bolus. This afternoon nurses notified me that patient has had 2 large black tarry stools. Hemoglobin was 8.1 this morning. Repeat stat CBC ordered. INR was down to 4.5. Creatinine is up to 2.56. We are working on trying to transfer patient to [facility] due to her altered mental status. There is no neurology available at this facility. On 04/05/2019 patient was admitted to the intensive care unit due to new onset of acute GI bleed. Patient remains with altered mental status changes. Transferred to [facility] has been initiated. Case management following. Awaiting bed placement at [facility]. Hemoglobin 5.9. Patient to get 2 units of PRBCs. Per nursing staff patient has had multiple episodes of dark black stools. INR 1.6. Sodium high at 149 fluids have been switched to half-normal saline. Vitals remained stable. IV metoprolol added due to patient unable to take by mouth Lopressor. [facility] transfer team updated on patient now being ICU discuss with accepting physician at [facility] awaiting bed placement. GI services have been consulted in the meantime. Patient remains in the intensive care followed by critical care services and infectious disease I performed an examination of the patient and discussed their management with the Nurse Practitioner. I have reviewed the Nurse Practitioner's notes and agree with the documented findings and plan of care Patient Condition at Discharge: Stable Plan - Discharge Summary Discharge Rx Participant: No New Discharge Prescriptions: No Action diphenhydrAMINE HCL [Benadryl] 25 mg PO HS PRN PRN Reason: Itching Allopurinol [Zyloprim] 300 mg PO DAILY@0900 Multivitamins, Thera [Multivitamin (formulary)] 1 tab PO DAILY@0900 amLODIPine [Norvasc] 5 mg PO DAILY@0900 Pravastatin Sodium [Pravachol] 20 mg PO HS@2100 Acetaminophen Tab [Tylenol] 650 mg PO Q5H PRN PRN Reason: Fever Isosorbide Mononitrate ER [Imdur] 30 mg PO DAILY@0900 Cyclobenzaprine [Flexeril] 10 mg PO BID PRN PRN Reason: Pain PARoxetine HCL [Paxil] 30 mg PO BID@0900,2100 Diazepam [Valium] 5 mg PO Q6H PRN PRN Reason: Muscle Spasm Loperamide HCl [Loperamide] 2 mg PO Q6H PRN PRN Reason: Diarrhea Omeprazole [PriLOSEC] 10 mg PO BID PRN PRN Reason: GERD Acetaminophen-Codeine 300-30mg [Tylenol w/codeine #3] 1 tab PO Q6H PRN PRN Reason: Pain Cefepime HCl [Maxipime] 2 gm IV Q8H Sennosides/Docusate Sodium [Senna Plus 8.6-50 mg Tablet] 1 tab PO BID@0900,2100 LORazepam [Ativan] 0.5 mg PO BID@0900,1700 Lactose-Reduced Food [Ensure Plus] 120 ml PO BID@0900,2100 Calcium Carbonate/Vitamin D3 [Calcium 600-Vit D3 400 Tablet] 1 tab PO BID@0900,1700 Metoprolol Succinate (ER) [Toprol XL] 25 mg PO DAILY@0900 DAPTOmycin [Cubicin] 700 mg IV DAILY@0900 Warfarin Sodium [Coumadin] 4 mg PO DAILY@1700 Aspirin 325 mg PO DAILY@0900 Ondansetron HCl [Zofran] 4 mg PO Q6H PRN PRN Reason: Nausea And Vomiting Pyridoxine [Vitamin B-6] 50 mg PO DAILY tab Ferrous Sulfate [Feosol] 325 mg PO DAILY 30 Days #30 tab Darbepoetin Raj [Aranesp] 60 mcg SQ WE Furosemide [Lasix] 40 mg PO DAILY@0600 Discharge Medication List Allopurinol [Zyloprim] 300 mg PO DAILY@0908/21/14 [History] diphenhydrAMINE HCL [Benadryl] 25 mg PO HS PRN 08/21/14 [History] Multivitamins, Thera [Multivitamin (formulary)] 1 tab PO DAILY@89911/17/15 [History] amLODIPine [Norvasc] 5 mg PO DAILY@0907/03/16 [History] Acetaminophen Tab [Tylenol] 650 mg PO Q5H PRN 02/02/18 [History] Cyclobenzaprine [Flexeril] 10 mg PO BID PRN 02/02/18 [History] Isosorbide Mononitrate ER [Imdur] 30 mg PO DAILY@89902/02/18 [History] Pravastatin Sodium [Pravachol] 20 mg PO HS@209902/02/18 [History] PARoxetine HCL [Paxil] 30 mg PO BID@0900,209903/27/18 [History] Diazepam [Valium] 5 mg PO Q6H PRN 10/27/18 [History] Loperamide HCl [Loperamide] 2 mg PO Q6H PRN 10/27/18 [History] Acetaminophen-Codeine 300-30mg [Tylenol w/codeine #3] 1 tab PO Q6H PRN 03/18/19 [History] Aspirin 325 mg PO DAILY@0903/18/19 [History] Calcium Carbonate/Vitamin D3 [Calcium 600-Vit D3 400 Tablet] 1 tab PO BID@0900,1700 03/18/19 [History] Cefepime HCl [Maxipime] 2 gm IV Q8H 03/18/19 [History] DAPTOmycin [Cubicin] 700 mg IV DAILY@0903/18/19 [History] LORazepam [Ativan] 0.5 mg PO BID@0900,1700 03/18/19 [History] Lactose-Reduced Food [Ensure Plus] 120 ml PO BID@0900,209903/18/19 [History] Metoprolol Succinate (ER) [Toprol XL] 25 mg PO DAILY@0900 03/18/19 [History] Omeprazole [PriLOSEC] 10 mg PO BID PRN 03/18/19 [History] Ondansetron HCl [Zofran] 4 mg PO Q6H PRN 03/18/19 [History] Sennosides/Docusate Sodium [Senna Plus 8.6-50 mg Tablet] 1 tab PO BID@0900,2100 03/18/19 [History] Warfarin Sodium [Coumadin] 4 mg PO DAILY@1700 03/18/19 [History] Ferrous Sulfate [Feosol] 325 mg PO DAILY 30 Days #30 tab 03/27/19 [Rx] Pyridoxine [Vitamin B-6] 50 mg PO DAILY tab 03/27/19 [Rx] Darbepoetin Raj [Aranesp] 60 mcg SQ WE 04/03/19 [History] Furosemide [Lasix] 40 mg PO DAILY@0600 04/03/19 [History]
--- NOTE | 2019-04-05 16:07 | PN ---
PROGRESS NOTE DATE OF SERVICE: 04/05/2019 REASON FOR FOLLOWUP: 1. Right AKA stump wound infection. 2. UTI. INTERVAL HISTORY: The patient is currently afebrile. The patient is hemodynamically stable. Her mentation remains an issue. Though patient responds to her name, she seems to be slightly slow. No chest pain, shortness of breath or cough or any diarrhea reported. PHYSICAL EXAMINATION: Blood pressure 142/71 with a pulse of 112, temperature 98. She is 94% on room air. General description is an elderly female lying in bed in no distress. RESPIRATORY SYSTEM: Unlabored breathing. Clear to auscultation anteriorly. HEART: S1, S2. Regular rate and rhythm. ABDOMEN: Soft. No tenderness. Right AKA stump wound with minimal slough. Surrounding redness improved. No drainage. LABS: Hemoglobin is 5.9, white count 10.7, BUN of 69, creatinine 2.38. Urine with Matilda albicans. DIAGNOSTIC IMPRESSION AND PLAN: 1. Patient admitted to hospital with mental status changes and a fever with concern likely for a urinary tract infection. Urine has been Matilda albicans and the patient is currently covered with Diflucan. 2. Patient with right above-knee amputation stump wound and cellulitis, currently covered with daptomycin. That will be continued. Monitor her clinical course closely. MMODL / IJN: [id number] /
[2019-04-05 16:16] VITALS: BP 137/71; PULSE 112; RESP 14
[2019-04-05] MEDS ORDERED: LORazepam 2 MG/ML INJ IV SCH (21:00)
--- NOTE | 2019-04-10 07:36 | CDI ---
Documentation Clarification Form Date: 04/10/19 From: Betsy Oconnell Phone: If you have a question about this query, please contact Itzel Gill, [employer] Optician at [phone] between 8am and 5pm. Admit Date: 04/03/19 Discharge Date: 04/05/19 Patient Name: Maria Teresa Celeste Visit Number: [id number] ATTENTION: The Clinical Documentation Specialists (CDI) and [facility] Coding Staff appreciate your assistance in clarifying documentation. Please respond to the clarification below the line at the bottom and electronically sign. The CDI & [facility] Coding staff will review the response and follow-up if needed. Please note: Queries are made part of the Legal Health Record. If you have any questions, please contact the author of this message via ITS. Dear Dr. Gage Gastelum, Patient was admitted with altered mental status. History/Risk Factors: s/p RLE amputation w infection & necrosis, HTN, ARF, GI hemorrhage, ABLA Clinical Indicators: Per Dr Sánchez - The BUN is at 6 with a creatinine of 2.3 and this is consistent with chronic kidney disease. BUN: 36, 64, 69 CR: 2.27, 2.56, 2.38 GFR: 21, 18, 20 Patients Baseline BUN/CR/GFR: not documented Treatment: IVF In order to capture the severity of condition, please clarify if the condition signifies: CKD Stage 1 (GFR > 90) CKD Stage 2 (GFR 60-89) CKD Stage 3 (GFR 30-59) CKD Stage 4 (GFR 15-29) CKD Stage 5 (GFR <15) ESRD Other, please specify Unable to determine chronic kidney disease stage 4 MTDD
== END 2019-04-05 16:18 | disposition short-term general hospital (02) | DRG 757 ==
LOC: EC 09:50 → 4SSUR 13:30 → 2SICU 04-04 15:34
PROVIDERS: ADMIT Internal Medicine; ATTEND Internal Medicine
PROC: 30233N1 Transfusion of Nonautologous Red Blood Cells into Peripheral Vein, Percutaneous Approach (ICD-10-PCS; principal; 2019-04-05)
DX: B37.49 Other urogenital candidiasis (principal); G93.41 Metabolic encephalopathy; T87.43 Infection of amputation stump, right lower extremity; N17.9 Acute kidney failure, unspecified; M86.251 Subacute osteomyelitis, right femur; I13.0 Hypertensive heart and chronic kidney disease with heart failure and stage 1 through stage 4 chronic kidney disease, or unspecified chronic kidney disease; I96 Gangrene, not elsewhere classified; L03.115 Cellulitis of right lower limb; K92.2 Gastrointestinal hemorrhage, unspecified; D62 Acute posthemorrhagic anemia; E87.0 Hyperosmolality and hypernatremia; N18.4 Chronic kidney disease, stage 4 (severe); T87.53 Necrosis of amputation stump, right lower extremity; I50.9 Heart failure, unspecified; E87.6 Hypokalemia; D50.0 Iron deficiency anemia secondary to blood loss (chronic); R33.9 Retention of urine, unspecified; E66.01 Morbid (severe) obesity due to excess calories; Q07.9 Congenital malformation of nervous system, unspecified; F32.9 Major depressive disorder, single episode, unspecified; F41.9 Anxiety disorder, unspecified; K21.9 Gastro-esophageal reflux disease without esophagitis; E78.5 Hyperlipidemia, unspecified; M19.90 Unspecified osteoarthritis, unspecified site; M81.0 Age-related osteoporosis without current pathological fracture; H54.62 Unqualified visual loss, left eye, normal vision right eye; H35.30 Unspecified macular degeneration; R29.6 Repeated falls; M10.9 Gout, unspecified; R79.1 Abnormal coagulation profile; R21 Rash and other nonspecific skin eruption; T45.515A Adverse effect of anticoagulants, initial encounter; Z68.39 Body mass index [BMI] 39.0-39.9, adult; Z79.82 Long term (current) use of aspirin; Z79.2 Long term (current) use of antibiotics; Z79.01 Long term (current) use of anticoagulants; Z79.899 Other long term (current) drug therapy; Z89.611 Acquired absence of right leg above knee; Z86.19 Personal history of other infectious and parasitic diseases; Z90.710 Acquired absence of both cervix and uterus; Z87.440 Personal history of urinary (tract) infections; Z98.890 Other specified postprocedural states; Z96.651 Presence of right artificial knee joint; Z86.711 Personal history of pulmonary embolism; Z86.718 Personal history of other venous thrombosis and embolism; Z87.891 Personal history of nicotine dependence; Z98.42 Cataract extraction status, left eye; Z98.41 Cataract extraction status, right eye; Z98.51 Tubal ligation status; Z88.6 Allergy status to analgesic agent; Z88.1 Allergy status to other antibiotic agents; Z91.011 Allergy to milk products; Z88.8 Allergy status to other drugs, medicaments and biological substances; Z91.018 Allergy to other foods; Y83.5 Amputation of limb(s) as the cause of abnormal reaction of the patient, or of later complication, without mention of misadventure at the time of the procedure; Z82.49 Family history of ischemic heart disease and other diseases of the circulatory system; Z80.8 Family history of malignant neoplasm of other organs or systems; Z83.49 Family history of other endocrine, nutritional and metabolic diseases; Z82.3 Family history of stroke
CPT/HCPCS: 36415; 70450; 71045; 80053; 81001; 82140; 82272; 82803; 83605; 83735; 84100; 84484; 85025; 85610; 85652; 85730; 86140; 86850; 86860; 86870; 86880; 86900; 86901; 86902; 86920; 87040; 87086; 93005; 96361; 96365; 96366; 96368; 96375; 99285

== ENCOUNTER 2019-05-03 17:44 | Emergency (ER) | payer MEDICARE ==
[2019-05-03] MEDS ORDERED: ACETAMINOPHEN TAB 500 MG TAB PO STA (18:34)
--- NOTE | 2019-05-03 19:07 | ED ---
Fall HPI - General Chief Complaint: Fall Stated Complaint: fall Time Seen by Provider: 05/03/19 18:08 Source: patient, EMS Mode of arrival: EMS - History of Present Illness Initial Comments: 73-year-old female patient presents to the emergency department from [facility] for evaluation after falling from her wheelchair at her extended care facility. Patient states that she was attempting to get up and go to bed when she leaned forward and fell forward hitting her head on the ground. She denies loss of consciousness with this injury. Patient states she is having some neck pain but it is from a previous injury. She denies any current headache, blurred vision, or double vision. She denies any other injuries. States that she does take Coumadin. Patient denies any back pain, chest pain, shortness of breath, dizziness, weakness, abdominal pain, nausea, vomiting, or difficulties with bowel movements or urination. - Related Data Home Medications Medication Instructions Recorded Confirmed Allopurinol [Zyloprim] 300 mg PO DAILY@0908/21/14 04/03/19 diphenhydrAMINE HCL [Benadryl] 25 mg PO HS PRN 08/21/14 04/03/19 Multivitamins, Thera [Multivitamin 1 tab PO DAILY@0911/17/15 04/03/19 (formulary)] amLODIPine [Norvasc] 5 mg PO DAILY@0907/03/16 04/03/19 Acetaminophen Tab [Tylenol] 650 mg PO Q5H PRN 02/02/18 04/03/19 Cyclobenzaprine [Flexeril] 10 mg PO BID PRN 02/02/18 04/03/19 Isosorbide Mononitrate ER [Imdur] 30 mg PO DAILY@0902/02/18 04/03/19 Pravastatin Sodium [Pravachol] 20 mg PO HS@209902/02/18 04/03/19 PARoxetine HCL [Paxil] 30 mg PO BID@09,209903/27/18 04/03/19 Diazepam [Valium] 5 mg PO Q6H PRN 10/27/18 04/03/19 Loperamide HCl [Loperamide] 2 mg PO Q6H PRN 10/27/18 04/03/19 Acetaminophen-Codeine 300-30mg 1 tab PO Q6H PRN 03/18/19 04/03/19 [Tylenol w/codeine #3] Aspirin 325 mg PO DAILY@0900 03/18/19 04/03/19 Calcium Carbonate/Vitamin D3 1 tab PO BID@0900,1700 03/18/19 04/03/19 [Calcium 600-Vit D3 400 Tablet] Cefepime HCl [Maxipime] 2 gm IV Q8H 03/18/19 04/03/19 DAPTOmycin [Cubicin] 700 mg IV DAILY@0900 03/18/19 04/03/19 LORazepam [Ativan] 0.5 mg PO BID@0900,1700 03/18/19 04/03/19 Lactose-Reduced Food [Ensure Plus] 120 ml PO BID@0900,209903/18/19 04/03/19 Metoprolol Succinate (ER) [Toprol 25 mg PO DAILY@0900 03/18/19 04/03/19 XL] Omeprazole [PriLOSEC] 10 mg PO BID PRN 03/18/19 04/03/19 Ondansetron HCl [Zofran] 4 mg PO Q6H PRN 03/18/19 04/03/19 Sennosides/Docusate Sodium [Senna 1 tab PO BID@0900,2100 03/18/19 04/03/19 Plus 8.6-50 mg Tablet] Warfarin Sodium [Coumadin] 4 mg PO DAILY@1700 03/18/19 04/03/19 Darbepoetin Raj [Aranesp] 60 mcg SQ WE 04/03/19 04/03/19 Furosemide [Lasix] 40 mg PO DAILY@0600 04/03/19 04/03/19 Previous Rx's Medication Instructions Recorded Ferrous Sulfate [Feosol] 325 mg PO DAILY 30 Days #30 tab 03/27/19 Pyridoxine [Vitamin B-6] 50 mg PO DAILY tab 03/27/19 Allergies Allergy/AdvReac Type Severity Reaction Status Date / Time adhesive Allergy Rash/Hives Verified 05/03/19 18:07 carbamazepine [From Tegretol] Allergy Rash/Hives Verified 05/03/19 18:07 carisoprodol [From Soma] Allergy lowers b/p Verified 05/03/19 18:07 quickly & passes out corn Allergy Unknown Verified 05/03/19 18:07 doxycycline calcium Allergy Rash/Hives Verified 05/03/19 18:07 [From Vibramycin] doxycycline hyclate Allergy Rash/Hives,vomited Verified 05/03/19 18:07 [From Vibramycin] blood doxycycline monohydrate Allergy Rash/Hives,vomited Verified 05/03/19 18:07 [From Vibramycin] blood erythromycin base Allergy Rash/Hives,vomited Verified 05/03/19 18:07 [From E-Mycin] blood hydrocodone bitartrate Allergy abdominal Verified 05/03/19 18:07 [From Vicodin] pain, diarrhea milk Allergy Unknown Verified 05/03/19 18:07 NSAIDS (Non-Steroidal Allergy Swelling Verified 05/03/19 18:07 Anti-Inflamma piroxicam [From Feldene] Allergy Swelling Verified 05/03/19 18:07 ciprofloxacin [From Cipro] AdvReac Nausea & Verified 05/03/19 18:07 Vomiting wheat AdvReac Diarrhea Verified 05/03/19 18:07 Review of Systems ROS Statement: Those systems with pertinent positive or pertinent negative responses have been documented in the HPI. ROS Other: All systems not noted in ROS Statement are negative. 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 Date of last positivie culture/infection: August 2013 MDRO Source:: Right knee Past Surgical History: Hysterectomy, Joint Replacement, Orthopedic Surgery, Tubal Ligation Additional Past Surgical History / Comment(s): Sternocleidomastoidectomy (right), right shoulder rotator cuff, rectocele/cystocele, right foot - Varma's neuroma/hammer toe, left outer forearm arthroscopy and shortening left ulna - plates and screws inserted, right wrist bundle of nerves , right knee arthroscopy/realignment of tendon/tibia/kneecap, 07-20-13 right knee replacement, 08-10-13 large hematoma removed, BL vitrectomies, BL cataract surgery, right right femur benign tumor removed, left foot bone spur. Right AKA done on Feb 13 per Pt of this year. Past Anesthesia/Blood Transfusion Reactions: Postoperative Nausea & Vomiting (PONV) Additional Past Anesthesia/Blood Transfusion Reaction / Comment(s): no compli cations with prior blood transfusion Past Psychological History: Anxiety, Depression Smoking Status: Former smoker Past Alcohol Use History: None Reported Past Drug Use History: None Reported - Past Family History Brother(s) Family Medical History: Cancer, Congestive Heart Failure (CHF) Additional Family Medical History / Comment(s): Heart problems, CABG, oral CA, pacemaker/defib. Father Family Medical History: Congestive Heart Failure (CHF), Hyperlipidemia, Hypertension, Myocardial Infarction ([place]) Additional Family Medical History / Comment(s): at 97 years old. Mother Family Medical History: Congestive Heart Failure (CHF), CVA/TIA Additional Family Medical History / Comment(s): Pacemaker - January 16 at age 94 a few days after CVA. General Exam Limitations: no limitations General appearance: alert, in no apparent distress, other (This is a well- developed, well-nourished elderly female patient in no acute distress. Vital signs upon presentation are temperature 98.3F, pulse 105, respirations 16, blood pressure 139/84, pulse ox 93% on room air.) Head exam: Present: other (There is mild soft tissue swelling and ecchymosis noted to the mid upper forehead) Eye exam: Present: normal appearance, PERRL, EOMI. Absent: scleral icterus, conjunctival injection, nystagmus, periorbital swelling Neck exam: Present: normal inspection, full ROM. Absent: tenderness, meningismus, lymphadenopathy Respiratory exam: Present: normal lung sounds bilaterally. Absent: respiratory distress, wheezes, rales, rhonchi, stridor Cardiovascular Exam: Present: regular rate, normal rhythm, normal heart sounds. Absent: systolic murmur, diastolic murmur, rubs, gallop, clicks GI/Abdominal exam: Present: soft, normal bowel sounds. Absent: distended, tenderness, guarding, rebound, rigid Back exam: Present: normal inspection. Absent: vertebral tenderness Neurological exam: Present: alert, oriented X3, CN II-XII intact Psychiatric exam: Present: normal affect, normal mood Skin exam: Present: warm, dry, intact, normal color. Absent: rash Course Vital Signs 05/03/19 18:02 Temperature 98.3 F Pulse Rate 105 H Respiratory 16 Rate Blood Pressure 139/84 O2 Sat by Pulse 93 L Oximetry Medical Decision Making - Medical Decision Making 73-year-old female patient presents to the emergency department today for evaluation after sustaining a head injury at her extended care facility. Physical examination did reveal soft tissue swelling and ecchymosis to the mid upper forehead. She is neurologically intact with no focal deficits. Brain and C-spine computed tomography scan is negative. I did discuss findings and results with the patient and her family. She'll be discharged back to her facility. She is instructed to follow-up with the primary care physician for recheck in 1-2 days. Return parameters were discussed in detail. She verbalizes understanding and agrees with this plan. - Radiology Data Radiology results: report reviewed, image reviewed CT brain C-spine without contrast is obtained. Report reviewed in its entirety. Impression by Dr. Mcmahan shows cerebral atrophy mild chronic small vessel ischemia. No acute intracranial abdomen abnormality. No change. Spondylotic changes in the cervical spine. No fracture seen. Disposition Clinical Impression: Head injury, Forehead contusion Disposition: HOME SELF-CARE Condition: Good Instructions (If sedation given, give patient instructions): Head Injury (ED), Contusion in Adults (ED) Additional Instructions: Follow-up with the primary care physician for recheck in 1-2 days. Return to the emergency department immediately for any new, worsening, or concerning symptoms. Is patient prescribed a controlled substance at d/c from ED?: No Referrals: Gage Gastelum MD [Primary Care Provider] - 1-2 days Time of Disposition: 19:37
--- NOTE | 2019-05-03 19:27 | CT ---
EXAMINATION TYPE: CT brain trudyine wo con DATE OF EXAM: 05/03/2019 COMPARISON: CT brain 04/04/2019 HISTORY: Fall from wheelchair. Frontal injury. CT DLP: 1446.4 mGycm Automated exposure control for dose reduction was used. Multiple axial sections were obtained of the brain without contrast. Multiple axial sections were obtained from the skull base to T1 vertebra without contrast. FINDINGS: There is cerebral cortical atrophy. There is no mass effect nor midline shift. There is no sign of in tracranial hemorrhage. There is mild hypodensity in the periventricular white matter. The calvarium i s intact. Cervical vertebra have normal alignment. There is degenerative disc space narrowing throughout the ce rvical spine from C3 to C7. The posterior elements are intact. There is mild hypertrophic facet arthr opathy. The skull base is intact. IMPRESSION: Cerebral atrophy and mild chronic small vessel ischemia. No acute intracranial abnormality. No change . Spondylotic changes in the cervical spine. No fracture seen.
[2019-05-03 19:54] VITALS: BP 129/78; PULSE 100; RESP 20; TEMP 98.2
== END 2019-05-03 20:21 ==
LOC: EC 17:44
DX: S00.83XA Contusion of other part of head, initial encounter (principal); F32.9 Major depressive disorder, single episode, unspecified; F41.9 Anxiety disorder, unspecified; H35.30 Unspecified macular degeneration; I10 Essential (primary) hypertension; K21.9 Gastro-esophageal reflux disease without esophagitis; M10.9 Gout, unspecified; M19.90 Unspecified osteoarthritis, unspecified site; M81.0 Age-related osteoporosis without current pathological fracture; Z79.01 Long term (current) use of anticoagulants; Z79.82 Long term (current) use of aspirin; Z79.899 Other long term (current) drug therapy; Z88.1 Allergy status to other antibiotic agents; Z88.8 Allergy status to other drugs, medicaments and biological substances; Z88.6 Allergy status to analgesic agent; Z91.011 Allergy to milk products; Z88.5 Allergy status to narcotic agent; Z91.048 Other nonmedicinal substance allergy status; Z86.718 Personal history of other venous thrombosis and embolism; Z86.711 Personal history of pulmonary embolism; Z87.891 Personal history of nicotine dependence; Z87.19 Personal history of other diseases of the digestive system; Z89.611 Acquired absence of right leg above knee; Z95.5 Presence of coronary angioplasty implant and graft; Z96.651 Presence of right artificial knee joint; W05.0XXA Fall from non-moving wheelchair, initial encounter
CPT/HCPCS: 70450; 72125; 99284

== ENCOUNTER 2019-06-18 13:38 | Emergency (ER) | payer MEDICARE ==
[2019-06-18 13:47] VITALS: RESP 18; TEMP 98.8
[2019-06-18] MEDS ORDERED: MORPHINE SULFATE 4 MG/ML SYRINGE IVP STA ×2 (13:56→15:12)
--- NOTE | 2019-06-18 14:06 | ED ---
General Adult HPI - General Chief complaint: Fall Stated complaint: Fall-head injury Time Seen by Provider: 06/18/19 13:40 Source: patient, family, EMS, RN notes reviewed, old records reviewed Mode of arrival: EMS Limitations: physical limitation - History of Present Illness Initial comments: 73-year-old female presents from a correction status post fall. Patient has [id number] amputation on the right, she is wheelchair-bound. She fell from her wheelchair striking her forehead. Patient is currently on Coumadin with history of DVT PE. Patient did not lose consciousness. She struck her forehead and has large frontal hematoma no active bleeding. She was transported by EMS. She does report some pain on her right amputation site with minimal trauma. No abdominal pain. No chest pain. No dyspnea no fever. - Related Data Home Medications Medication Instructions Recorded Confirmed Allopurinol [Zyloprim] 300 mg PO DAILY@0900 08/21/14 04/03/19 Multivitamins, Thera [Multivitamin 1 tab PO DAILY@0900 11/17/15 04/03/19 (formulary)] Acetaminophen Tab [Tylenol] 650 mg PO Q5H PRN 02/02/18 04/03/19 Isosorbide Mononitrate ER [Imdur] 30 mg PO DAILY@0900 02/02/18 04/03/19 Pravastatin Sodium [Pravachol] 20 mg PO HS@2100 02/02/18 04/03/19 PARoxetine HCL [Paxil] 30 mg PO BID@0900,2100 03/27/18 04/03/19 Aspirin 325 mg PO DAILY@0900 03/18/19 04/03/19 Calcium Carbonate/Vitamin D3 1 tab PO BID@0900,1700 03/18/19 04/03/19 [Calcium 600-Vit D3 400 Tablet] LORazepam [Ativan] 0.5 mg PO BID@0900,1700 03/18/19 04/03/19 Ondansetron HCl [Zofran] 4 mg PO Q6H PRN 03/18/19 04/03/19 Artificial Tears-Hypromellose 1 drop BOTH EYES Q1H PRN 06/18/19 06/18/19 [Artificial Tear Drops] Cyanocobalamin [Vitamin B-12] 500 mcg PO DAILY@0900 06/18/19 06/18/19 Ferrous Sulfate [Feosol] 325 mg PO DAILY@0900 06/18/19 06/18/19 Folic Acid 1 mg PO HS@209906/18/19 06/18/19 Lisinopril [Zestril] 20 mg PO BID@0900,1700 06/18/19 06/18/19 Loperamide [Imodium] 2 mg PO Q6H PRN 06/18/19 06/18/19 Magnesium Oxide 400 mg PO BID@0900,209906/18/19 06/18/19 Menthol-Zinc Oxide Oint 1 applic TOPICAL Q6H PRN 06/18/19 06/18/19 [Calmoseptine Oint] Metoprolol Succinate (ER) [Toprol 50 mg PO DAILY@0906/18/19 06/18/19 Xl] Pantoprazole Sodium [Protonix] 40 mg PO DAILY@0600 06/18/19 06/18/19 Potassium Chloride ER [K-Dur 20] 20 meq PO DAILY@0900 06/18/19 06/18/19 Warfarin [Coumadin] 2 mg PO HS@169906/18/19 06/18/19 Allergies Allergy/AdvReac Type Severity Reaction Status Date / Time adhesive Allergy Rash/Hives Verified 06/18/19 14:19 carbamazepine [From Tegretol] Allergy Rash/Hives Verified 06/18/19 14:19 carisoprodol [From Soma] Allergy lowers b/p Verified 06/18/19 14:19 quickly & passes out corn Allergy Unknown Verified 06/18/19 14:19 doxycycline calcium Allergy Rash/Hives Verified 06/18/19 14:19 [From Vibramycin] doxycycline hyclate Allergy Rash/Hives,vomited Verified 06/18/19 14:19 [From Vibramycin] blood doxycycline monohydrate Allergy Rash/Hives,vomited Verified 06/18/19 14:19 [From Vibramycin] blood erythromycin base Allergy Rash/Hives,vomited Verified 06/18/19 14:19 [From E-Mycin] blood hydrocodone bitartrate Allergy abdominal Verified 06/18/19 14:19 [From Vicodin] pain, diarrhea milk Allergy Unknown Verified 06/18/19 14:19 NSAIDS (Non-Steroidal Allergy Swelling Verified 06/18/19 14:19 Anti-Inflamma piroxicam [From Feldene] Allergy Swelling Verified 06/18/19 14:19 ciprofloxacin [From Cipro] AdvReac Nausea & Verified 06/18/19 14:19 Vomiting wheat AdvReac Diarrhea Verified 06/18/19 14:19 Review of Systems ROS Statement: Those systems with pertinent positive or pertinent negative responses have been documented in the HPI. ROS Other: All systems not noted in ROS Statement are negative. 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 Date of last positivie culture/infection: August 2013 MDRO Source:: Right knee Past Surgical History: Hysterectomy, Joint Replacement, Orthopedic Surgery, Tubal Ligation Additional Past Surgical History / Comment(s): Sternocleidomastoidectomy (right), right shoulder rotator cuff, rectocele/cystocele, right foot - Varma's neuroma/hammer toe, left outer forearm arthroscopy and shortening left ulna - plates and screws inserted, right wrist bundle of nerves , right knee arthroscopy/realignment of tendon/tibia/kneecap, 07-20-13 right knee replacement, 08-10-13 large hematoma removed, BL vitrectomies, BL cataract surgery, right right femur benign tumor removed, left foot bone spur. Right AKA done on Feb 13 per Pt of this year. Past Anesthesia/Blood Transfusion Reactions: Postoperative Nausea & Vomiting (PONV) Additional Past Anesthesia/Blood Transfusion Reaction / Comment(s): no complications with prior blood transfusion Past Psychological History: Anxiety, Depression Smoking Status: Former smoker Past Alcohol Use History: None Reported Past Drug Use History: None Reported - Past Family History Brother(s) Family Medical History: Cancer, Congestive Heart Failure (CHF) Additional Family Medical History / Comment(s): Heart problems, CABG, oral CA, pacemaker/defib. Father Family Medical History: Congestive Heart Failure (CHF), Hyperlipidemia, Hypertension, Myocardial Infarction ([place]) Additional Family Medical History / Comment(s): at 97 years old. Mother Family Medical History: Congestive Heart Failure (CHF), CVA/TIA Additional Family Medical History / Comment(s): Pacemaker - January 16 at age 94 a few days after CVA. General Exam Limitations: physical limitation General appearance: alert, in no apparent distress Head exam: Absent: atraumatic (Large frontal hematoma) Eye exam: Present: normal appearance, PERRL, EOMI ENT exam: Present: normal exam Neck exam: Present: normal inspection, full ROM. Absent: tenderness, meningismus Respiratory exam: Present: normal lung sounds bilaterally. Absent: respiratory distress, wheezes, rales Cardiovascular Exam: Present: regular rate, normal rhythm GI/Abdominal exam: Present: soft. Absent: distended, tenderness Extremities exam: Present: other (Left extremity unremarkable, right extremity: AKA) Neurological exam: Present: alert. Absent: motor sensory deficit Psychiatric exam: Present: normal affect, normal mood Skin exam: Present: warm, dry Course Vital Signs 06/18/19 13:41 Temperature 98.8 F Pulse Rate 70 Respiratory 18 Rate Blood Pressure 173/85 O2 Sat by Pulse 100 Oximetry Medical Decision Making - Medical Decision Making 73-year-old female status post fall with head injury. On exam patient has large frontal hematoma, periorbital ecchymosis on the right. The globe itself is intact, pupils are equal round reactive to light. Extraocular movements are normal bilaterally. Head CT is performed which shows large frontal hematoma, periorbital hematoma, no intracranial abnormality, no intracranial hemorrhage. CT cervical spine is negative for fracture or subluxation. Laboratory testing reveals therapeutic INR 3.0 hemoglobin is improved from baseline at 11.1 from recent of 5.9. She has normal electrolytes. She will require very close observation at the correction given her therapeutic Coumadin level and head trauma. We did contact the correction staff to indicate dyspnea for close monitoring and return parameters to the emergency department. - Lab Data Result diagrams: 06/18/19 14:10 06/18/19 14:10 Lab Results 06/18/19 06/18/19 06/18/19 Range/Units 14:10 14:10 14:10 WBC 7.1 (3.8-10.6) k/uL RBC 3.65 L (3.80-5.40) m/uL Hgb 11.1 L (11.4-16.0) gm/dL Hct 34.0 (34.0-46.0) % MCV 93.3 (80.0-100.0) fL MCH 30.5 (25.0-35.0) pg MCHC 32.7 (31.0-37.0) g/dL RDW 16.6 H (11.5-15.5) % Plt Count 271 (150-450) k/uL Neutrophils % 76 % Lymphocytes % 15 % Monocytes % 5 % Eosinophils % 2 % Basophils % 1 % Neutrophils # 5.4 (1.3-7.7) k/uL Lymphocytes # 1.0 (1.0-4.8) k/uL Monocytes # 0.4 (0-1.0) k/uL Eosinophils # 0.2 (0-0.7) k/uL Basophils # 0.0 (0-0.2) k/uL Anisocytosis Slight PT 29.3 H (9.0-12.0) sec INR 3.0 H (<1.2) APTT 35.3 H (22.0-30.0) sec Sodium 138 (137-145) mmol/L Potassium 4.4 (3.5-5.1) mmol/L Chloride 103 (98-107) mmol/L Carbon Dioxide 31 H (22-30) mmol/L Anion Gap 4 mmol/L BUN 18 H (7-17) mg/dL Creatinine 0.98 (0.52-1.04) mg/dL Est GFR (CKD-EPI)AfAm 66 (>60 ml/min/1.73 sqM) Est GFR (CKD-EPI)NonAf 57 (>60 ml/min/1.73 sqM) Glucose 101 H (74-99) mg/dL Calcium 9.8 (8.4-10.2) mg/dL Disposition Clinical Impression: Fall, Hematoma of frontal scalp, Concussion Disposition: HOME SELF-CARE Condition: Fair Instructions (If sedation given, give patient instructions): Fall Prevention for Older Adults (ED), Hematoma (ED), Concussion (ED) Additional Instructions: Please watch very closely over the next 24 hours. Return with any mental status changes, neurological complaints, worsening headache. Is patient prescribed a controlled substance at d/c from ED?: No Referrals: Oriana,Gage, MD [Primary Care Provider] - 1-2 days Time of Disposition: 15:15
[2019-06-18 14:25] LABS: Anisocytosis Slight; Basophils % (A) 1 %; Eosinophils # (A) 0.2 k/uL (0-0.7); Eosinophils % (A) 2 %; HGB 11.1 gm/dL (11.4-16.0); Lymphocytes % (A) 15 %; MCH 30.5 pg (25.0-35.0); MCHC 32.7 g/dL (31.0-37.0); MCV 93.3 fL (80.0-100.0); Monocytes # (A) 0.4 k/uL (0-1.0); Monocytes % (A) 5 %; Neutrophils # (A) 5.4 k/uL (1.3-7.7); Neutrophils % (A) 76 %; Platelet Count 271 k/uL (150-450); RBC 3.65 m/uL (3.80-5.40); RDW 16.6 % (11.5-15.5); WBC 7.1 k/uL (3.8-10.6)
[2019-06-18 14:41] LABS: Calcium 9.8 mg/dL (8.4-10.2); Potassium 4.4 mmol/L (3.5-5.1)
[2019-06-18 14:46] LABS: Partial Thromboplastin Time 35.3 sec (22.0-30.0); Prothrombin Time 29.3 sec (9.0-12.0)
--- NOTE | 2019-06-18 15:03 | CT ---
EXAMINATION TYPE: CT brain sofya clinton con DATE OF EXAM: 06/18/2019 COMPARISON: HISTORY: Fall. Head injury. CT DLP: 1515.7 mGycm Automated exposure control for dose reduction was used. There is cerebral cortical atrophy. There is no mass effect nor midline shift. There is no evidence o f intracranial hemorrhage. There is 12 mm area of slight increased cortical density right frontal lob e unchanged compared to old exam. This is of doubtful significance. No mass effect. There is large fr ontal scalp hematoma. The calvarium is intact. Cervical vertebra have normal alignment. There is degenerative disc space narrowing from C3 to C7 wit h mild spurring of the endplates. Facet joints are intact. The skull base is intact. There is mild hypodensity in the periventricular white matter. IMPRESSION: Mild spondylotic changes in the cervical spine. No fracture seen. Cerebral atrophy. No acute intracranial abnormality. Large acute frontal scalp hematoma. Right perior bital hematoma.
[2019-06-18 15:25] VITALS: BP 166/86; PULSE 83
== END 2019-06-18 16:02 | disposition home or self-care (01) ==
LOC: EC 13:38
DX: S06.0X0A Concussion without loss of consciousness, initial encounter (principal); S00.03XA Contusion of scalp, initial encounter; S00.11XA Contusion of right eyelid and periocular area, initial encounter; Z89.611 Acquired absence of right leg above knee; K21.9 Gastro-esophageal reflux disease without esophagitis; I10 Essential (primary) hypertension; M19.90 Unspecified osteoarthritis, unspecified site; M10.9 Gout, unspecified; H54.62 Unqualified visual loss, left eye, normal vision right eye; F32.9 Major depressive disorder, single episode, unspecified; F41.9 Anxiety disorder, unspecified; Z87.891 Personal history of nicotine dependence; Z88.1 Allergy status to other antibiotic agents; Z88.5 Allergy status to narcotic agent; Z88.6 Allergy status to analgesic agent; Z88.8 Allergy status to other drugs, medicaments and biological substances; Z91.011 Allergy to milk products; Z91.018 Allergy to other foods; Z91.048 Other nonmedicinal substance allergy status; Z79.01 Long term (current) use of anticoagulants; Z79.82 Long term (current) use of aspirin; Z79.899 Other long term (current) drug therapy; Z86.711 Personal history of pulmonary embolism; Z86.718 Personal history of other venous thrombosis and embolism; Z96.651 Presence of right artificial knee joint; Z96.698 Presence of other orthopedic joint implants; Z99.3 Dependence on wheelchair; W05.0XXA Fall from non-moving wheelchair, initial encounter; Y92.129 Unspecified place in nursing home as the place of occurrence of the external cause
CPT/HCPCS: 36415; 80048; 85025; 85610; 85730; 72125; 70450; 99284; 96374; 96376; J2270

== ENCOUNTER 2019-06-22 10:31 | Inpatient (IN) | payer MEDICARE ==
[2019-06-22] MEDS ORDERED: SODIUM CHLORIDE 0.9% 500 ML 500 ML IV ONE ×2 (10:32→12:20)
[2019-06-22 10:35] LABS: Glucose,Whole Blood 119 mg/dL (75-99)
[2019-06-22 11:10] LABS: Anisocytosis Slight; Basophils % (A) 0 %; Eosinophils # (A) 0.1 k/uL (0-0.7); Eosinophils % (A) 0 %; HCT 25.7 % (34.0-46.0); Lymphocytes # (A) 0.9 k/uL (1.0-4.8); Lymphocytes % (A) 7 %; MCH 30.5 pg (25.0-35.0); MCHC 32.3 g/dL (31.0-37.0); MCV 94.5 fL (80.0-100.0); Mean Platelet Volume 8.2; Monocytes # (A) 0.8 k/uL (0-1.0); Monocytes % (A) 6 %; Neutrophils # (A) 11.9 k/uL (1.3-7.7); Neutrophils % (A) 85 %; Platelet Count 402 k/uL (150-450); RBC 2.71 m/uL (3.80-5.40); RDW 16.4 % (11.5-15.5)
--- NOTE | 2019-06-22 11:12 | ED ---
General Adult HPI - General Chief complaint: Altered Mental Status Stated complaint: Increased lethargy Time Seen by Provider: 06/22/19 10:32 Source: patient, EMS, RN notes reviewed, old records reviewed Mode of arrival: EMS Limitations: altered mental status - History of Present Illness Initial comments: 73-year-old female presenting with altered mental status. [facility] with [facility] day history of decreased level consciousness and altered mental status. Patient had a fall 5 days ago with head trauma. She is currently on Coumadin. She was seen in the emergency department at that time and noted to have frontal hematoma with no intracranial hemorrhage. Patient was found by EMS to be febrile. No cough or dyspnea reported. No abdominal pain or vomiting. Patient is able to answer simple questions, she is complaining of generalized pain. - Related Data Home Medications Medication Instructions Recorded Confirmed Allopurinol [Zyloprim] 300 mg PO HS@209908/21/14 06/22/19 Multivitamins, Thera [Multivitamin 1 tab PO HS@209911/17/15 06/22/19 (formulary)] Acetaminophen Tab [Tylenol] 650 mg PO Q6H PRN 02/02/18 06/22/19 Isosorbide Mononitrate ER [Imdur] 30 mg PO DAILY@0900 02/02/18 06/22/19 Pravastatin Sodium [Pravachol] 20 mg PO HS@209902/02/18 06/22/19 PARoxetine HCL [Paxil] 30 mg PO BID@0900,1700 03/27/18 06/22/19 Aspirin 325 mg PO DAILY@0900 03/18/19 06/22/19 Calcium Carbonate/Vitamin D3 1 tab PO BID@0900,209903/18/19 06/22/19 [Calcium 600-Vit D3 400 Tablet] LORazepam [Ativan] 0.5 mg PO BID@0900,1700 03/18/19 06/22/19 Ondansetron HCl [Zofran] 4 mg PO Q6H PRN 03/18/19 06/22/19 Artificial Tears-Hypromellose 1 drop BOTH EYES Q1H PRN 06/18/19 06/22/19 [Artificial Tear Drops] Cyanocobalamin [Vitamin B-12] 500 mcg PO DAILY@0900 06/18/19 06/22/19 Ferrous Sulfate [Feosol] 325 mg PO DAILY@0900 06/18/19 06/22/19 Folic Acid 1 mg PO HS@209906/18/19 06/22/19 Lisinopril [Zestril] 20 mg PO BID@0900,17006/18/19 06/22/19 Loperamide [Imodium] 2 mg PO Q6H PRN 06/18/19 06/22/19 Magnesium Oxide 400 mg PO BID@0900,209906/18/19 06/22/19 Menthol-Zinc Oxide Oint 1 applic TOPICAL Q6H PRN 06/18/19 06/22/19 [Calmoseptine Oint] Metoprolol Succinate (ER) [Toprol 50 mg PO DAILY@0906/18/19 06/22/19 Xl] Pantoprazole Sodium [Protonix] 40 mg PO DAILY@0600 06/18/19 06/22/19 Potassium Chloride ER [K-Dur 20] 20 meq PO DAILY@0906/18/19 06/22/19 Warfarin [Coumadin] 2 mg PO HS@169906/18/19 06/22/19 Diazepam [Valium] 5 mg PO Q6H PRN 06/22/19 06/22/19 Allergies Allergy/AdvReac Type Severity Reaction Status Date / Time adhesive Allergy Rash/Hives Verified 06/22/19 12:21 carbamazepine [From Tegretol] Allergy Rash/Hives Verified 06/22/19 12:21 carisoprodol [From Soma] Allergy lowers b/p Verified 06/22/19 12:21 quickly & passes out corn Allergy Unknown Verified 06/22/19 12:21 doxycycline calcium Allergy Rash/Hives Verified 06/22/19 12:21 [From Vibramycin] doxycycline hyclate Allergy Rash/Hives,vomited Verified 06/22/19 12:21 [From Vibramycin] blood doxycycline monohydrate Allergy Rash/Hives,vomited Verified 06/22/19 12:21 [From Vibramycin] blood erythromycin base Allergy Rash/Hives,vomited Verified 06/22/19 12:21 [From E-Mycin] blood hydrocodone bitartrate Allergy abdominal Verified 06/22/19 12:21 [From Vicodin] pain, diarrhea milk Allergy Unknown Verified 06/22/19 12:21 NSAIDS (Non-Steroidal Allergy Swelling Verified 06/22/19 12:21 Anti-Inflamma piroxicam [From Feldene] Allergy Swelling Verified 06/22/19 12:21 ciprofloxacin [From Cipro] AdvReac Nausea & Verified 06/22/19 12:21 Vomiting wheat AdvReac Diarrhea Verified 06/22/19 12:21 Review of Systems ROS Statement: Those systems with pertinent positive or pertinent negative responses have been documented in the HPI. ROS Other: All systems not noted in ROS Statement are negative. 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 Date of last positivie culture/infection: August 2013 MDRO Source:: Right knee Past Surgical History: Hysterectomy, Joint Replacement, Orthopedic Surgery, Tubal Ligation Additional Past Surgical History / Comment(s): Sternocleidomastoidectomy (right), right shoulder rotator cuff, rectocele/cystocele, right foot - Varma's neuroma/hammer toe, left outer forearm arthroscopy and shortening left ulna - plates and screws inserted, right wrist bundle of nerves , right knee arthroscopy/realignment of tendon/tibia/kneecap, 07-20-13 right knee replacement, 08-10-13 large hematoma removed, BL vitrectomies, BL cataract surgery, right right femur benign tumor removed, left foot bone spur. Right AKA done on Feb 13 per Pt of this year. Past Anesthesia/Blood Transfusion Reactions: Postoperative Nausea & Vomiting (PONV) Additional Past Anesthesia/Blood Transfusion Reaction / Comment(s): no complications with prior blood transfusion Past Psychological History: Anxiety, Depression Smoking Status: Former smoker Past Alcohol Use History: None Reported Past Drug Use History: None Reported - Past Family History Brother(s) Family Medical History: Cancer, Congestive Heart Failure (CHF) Additional Family Medical History / Comment(s): Heart problems, CABG, oral CA, pacemaker/defib. Father Family Medical History: Congestive Heart Failure (CHF), Hyperlipidemia, Hypertension, Myocardial Infarction ([place]) Additional Family Medical History / Comment(s): at 97 years old. Mother Family Medical History: Congestive Heart Failure (CHF), CVA/TIA Additional Family Medical History / Comment(s): Pacemaker - January 16 at age 94 a few days after CVA. General Exam Limitations: altered mental status General appearance: in no apparent distress, lethargic Head exam: Present: normocephalic. Absent: atraumatic (Patient has large frontal hematoma on the right and bilateral periorbital ecchymosis.) Eye exam: Present: PERRL, periorbital swelling ENT exam: Present: mucous membranes dry Neck exam: Present: normal inspection. Absent: tenderness, meningismus Respiratory exam: Present: normal lung sounds bilaterally. Absent: respiratory distress, wheezes Cardiovascular Exam: Present: regular rate, normal rhythm GI/Abdominal exam: Present: soft. Absent: distended, tenderness, guarding Extremities exam: Present: joint swelling (Left knee ecchymosis and effusion, right [id number] amputation.) Neurological exam: Present: alert. Absent: motor sensory deficit Skin exam: Present: warm, dry, intact. Absent: cyanosis, diaphoretic Course Vital Signs 06/22/19 06/22/19 06/22/19 10:36 11:39 12:00 Temperature 100 F H Pulse Rate 100 104 H 106 H Respiratory 18 19 20 Rate Blood Pressure 140/95 147/93 O2 Sat by Pulse 100 100 100 Oximetry 06/22/19 12:30 Temperature Pulse Rate 109 H Respiratory 21 Rate Blood Pressure 150/84 O2 Sat by Pulse 100 Oximetry EKG Findings - EKG Comments: EKG Findings:: EKG: Sinus tachycardia, no ST segment elevation, T-wave inversion in the precordial leads and inferior leads, rate of 109, [place] interval 176, QRS duration 84, QTC 463. Medical Decision Making - Medical Decision Making 73-year-old female presented from [facility] with increased confusion over the past several days. I did obtain further history from the patient's son who is at bedside stating that she's been dealing with some confusion for the past several months. She is prone to recurrent urinary tract infections. She had head trauma on Wednesday which was 5 days ago. Patient has large hematoma on exam. Head CT is repeated emergency department which shows right frontal subarachnoid hemorrhage and some very ventricular hemorrhage. This appears unchanged compared to CT from 5 days prior. Given the current transfer situation to pressure referral centers I did discuss the case with neurology at this institution regarding possible keeping the patient in house rather than transferring given his intracranial hemorrhage. Dr. Padilla covering for neurology is agreeable given 5 days of stability. Coumadin will be held, repeat head CT will be obtained in 24 hours to ensure stability. Patient will be treated for her urinary tract infection which I believe is the primary cause of her confusion and fever. She has leukocytosis of 14. An urinalysis showing greater than 182 white cells. She's given IV hydration started on ceftriaxone awaiting culture results. Both blood cultures and urine cultures have been obtained. - Lab Data Result diagrams: 06/22/19 10:39 06/22/19 10:39 Lab Results 06/22/19 06/22/19 06/22/19 Range/Units 10:33 10:39 10:39 WBC 14.0 H (3.8-10.6) k/uL RBC 2.71 L (3.80-5.40) m/uL Hgb 8.3 L D (11.4-16.0) gm/dL Hct 25.7 L (34.0-46.0) % MCV 94.5 (80.0-100.0) fL MCH 30.5 (25.0-35.0) pg MCHC 32.3 (31.0-37.0) g/dL RDW 16.4 H (11.5-15.5) % Plt Count 402 (150-450) k/uL Neutrophils % 85 % Lymphocytes % 7 % Monocytes % 6 % Eosinophils % 0 % Basophils % 0 % Neutrophils # 11.9 H (1.3-7.7) k/uL Lymphocytes # 0.9 L (1.0-4.8) k/uL Monocytes # 0.8 (0-1.0) k/uL Eosinophils # 0.1 (0-0.7) k/uL Basophils # 0.0 (0-0.2) k/uL Anisocytosis Slight PT 29.6 H (9.0-12.0) sec INR 3.0 H (<1.2) APTT 52.7 H (22.0-30.0) sec Sodium (137-145) mmol/L Potassium (3.5-5.1) mmol/L Chloride (98-107) mmol/L Carbon Dioxide (22-30) mmol/L Anion Gap mmol/L BUN (7-17) mg/dL Creatinine (0.52-1.04) mg/dL Est GFR (CKD-EPI)AfAm (>60 ml/min/1.73 sqM) Est GFR (CKD-EPI)NonAf (>60 ml/min/1.73 sqM) Glucose (74-99) mg/dL POC Glucose (mg/dL) 119 H (75-99) mg/dL POC Glu Pre Billing Clinician ID Taylor Perez Plasma Lactic Acid Ananth (0.7-2.0) mmol/L Calcium (8.4-10.2) mg/dL Total Bilirubin (0.2-1.3) mg/dL AST (14-36) U/L ALT (4-34) U/L Alkaline Phosphatase (38-126) U/L Total Protein (6.3-8.2) g/dL Albumin (3.5-5.0) g/dL Urine Color Urine Appearance (Clear) Urine pH (5.0-8.0) Ur Specific [place] (1.001-1.035) Urine Protein (Negative) Urine Glucose (UA) (Negative) Urine Ketones (Negative) Urine Blood (Negative) Urine Nitrite (Negative) Urine Bilirubin (Negative) Urine Urobilinogen (<2.0) mg/dL Ur Leukocyte Esterase (Negative) Urine RBC (0-5) /hpf Urine WBC (0-5) /hpf Urine WBC Clumps (None) /hpf Ur Squamous Epith Cells (0-4) /hpf Urine Bacteria (None) /hpf Urine Mucus (None) /hpf Urine Opiates Screen (NotDetected) Ur Oxycodone Screen (NotDetected) Urine Methadone Screen (NotDetected) Ur Propoxyphene Screen (NotDetected) Ur Barbiturates Screen (NotDetected) U Tricyclic Antidepress (NotDetected) Ur Phencyclidine Scrn (NotDetected) Ur Amphetamines Screen (NotDetected) U Methamphetamines Scrn (NotDetected) U Benzodiazepines Scrn (NotDetected) Urine Cocaine Screen (NotDetected) U Marijuana (THC) Screen (NotDetected) Influenza Type A RNA (Not Detectd) Influenza Type B (PCR) (Not Detectd) 06/22/19 06/22/19 06/22/19 Range/Units 10:39 10:39 11:40 WBC (3.8-10.6) k/uL RBC (3.80-5.40) m/uL Hgb (11.4-16.0) gm/dL Hct (34.0-46.0) % MCV (80.0-100.0) fL MCH (25.0-35.0) pg MCHC (31.0-37.0) g/dL RDW (11.5-15.5) % Plt Count (150-450) k/uL Neutrophils % % Lymphocytes % % Monocytes % % Eosinophils % % Basophils % % Neutrophils # (1.3-7.7) k/uL Lymphocytes # (1.0-4.8) k/uL Monocytes # (0-1.0) k/uL Eosinophils # (0-0.7) k/uL Basophils # (0-0.2) k/uL Anisocytosis PT (9.0-12.0) sec INR (<1.2) APTT (22.0-30.0) sec Sodium 140 (137-145) mmol/L Potassium 4.1 (3.5-5.1) mmol/L Chloride 103 (98-107) mmol/L Carbon Dioxide 31 H (22-30) mmol/L Anion Gap 6 mmol/L BUN 28 H (7-17) mg/dL Creatinine 0.89 (0.52-1.04) mg/dL Est GFR (CKD-EPI)AfAm 74 (>60 ml/min/1.73 sqM) Est GFR (CKD-EPI)NonAf 65 (>60 ml/min/1.73 sqM) Glucose 122 H (74-99) mg/dL POC Glucose (mg/dL) (75-99) mg/dL POC Glu Pre Billing Clinician ID Plasma Lactic Acid Ananth 1.3 (0.7-2.0) mmol/L Calcium 9.3 (8.4-10.2) mg/dL Total Bilirubin 2.0 H (0.2-1.3) mg/dL AST 29 (14-36) U/L ALT 12 (4-34) U/L Alkaline Phosphatase 114 (38-126) U/L Total Protein 6.3 (6.3-8.2) g/dL Albumin 3.2 L (3.5-5.0) g/dL Urine Color Urine Appearance (Clear) Urine pH (5.0-8.0) Ur Specific [place] (1.001-1.035) Urine Protein (Negative) Urine Glucose (UA) (Negative) Urine Ketones (Negative) Urine Blood (Negative) Urine Nitrite (Negative) Urine Bilirubin (Negative) Urine Urobilinogen (<2.0) mg/dL Ur Leukocyte Esterase (Negative) Urine RBC (0-5) /hpf Urine WBC (0-5) /hpf Urine WBC Clumps (None) /hpf Ur Squamous Epith Cells (0-4) /hpf Urine Bacteria (None) /hpf Urine Mucus (None) /hpf Urine Opiates Screen Not Detected (NotDetected) Ur Oxycodone Screen Not Detected (NotDetected) Urine Methadone Screen Not Detected (NotDetected) Ur Propoxyphene Screen Not Detected (NotDetected) Ur Barbiturates Screen Not Detected (NotDetected) U Tricyclic Antidepress Not Detected (NotDetected) Ur Phencyclidine Scrn Not Detected (NotDetected) Ur Amphetamines Screen Not Detected (NotDetected) U Methamphetamines Scrn Not Detected (NotDetected) U Benzodiazepines Scrn Detected H (NotDetected) Urine Cocaine Screen Not Detected (NotDetected) U Marijuana (THC) Screen Not Detected (NotDetected) Influenza Type A RNA (Not Detectd) Influenza Type B (PCR) (Not Detectd) 06/22/19 06/22/19 Range/Units 11:40 13:00 WBC (3.8-10.6) k/uL RBC (3.80-5.40) m/uL Hgb (11.4-16.0) gm/dL Hct (34.0-46.0) % MCV (80.0-100.0) fL MCH (25.0-35.0) pg MCHC (31.0-37.0) g/dL RDW (11.5-15.5) % Plt Count (150-450) k/uL Neutrophils % % Lymphocytes % % Monocytes % % Eosinophils % % Basophils % % Neutrophils # (1.3-7.7) k/uL Lymphocytes # (1.0-4.8) k/uL Monocytes # (0-1.0) k/uL Eosinophils # (0-0.7) k/uL Basophils # (0-0.2) k/uL Anisocytosis PT (9.0-12.0) sec INR (<1.2) APTT (22.0-30.0) sec Sodium (137-145) mmol/L Potassium (3.5-5.1) mmol/L Chloride (98-107) mmol/L Carbon Dioxide (22-30) mmol/L Anion Gap mmol/L BUN (7-17) mg/dL Creatinine (0.52-1.04) mg/dL Est GFR (CKD-EPI)AfAm (>60 ml/min/1.73 sqM) Est GFR (CKD-EPI)NonAf (>60 ml/min/1.73 sqM) Glucose (74-99) mg/dL POC Glucose (mg/dL) (75-99) mg/dL POC Glu Pre Billing Clinician ID Plasma Lactic Acid Ananth (0.7-2.0) mmol/L Calcium (8.4-10.2) mg/dL Total Bilirubin (0.2-1.3) mg/dL AST (14-36) U/L ALT (4-34) U/L Alkaline Phosphatase (38-126) U/L Total Protein (6.3-8.2) g/dL Albumin (3.5-5.0) g/dL Urine Color Yellow Urine Appearance Turbid H (Clear) Urine pH 7.5 (5.0-8.0) Ur Specific [place] 1.020 (1.001-1.035) Urine Protein 1+ H (Negative) Urine Glucose (UA) Trace H (Negative) Urine Ketones 1+ H (Negative) Urine Blood Moderate H (Negative) Urine Nitrite Positive H (Negative) Urine Bilirubin Negative (Negative) Urine Urobilinogen 4.0 (<2.0) mg/dL Ur Leukocyte Esterase Large H (Negative) Urine RBC 41 H (0-5) /hpf Urine WBC >182 H (0-5) /hpf Urine WBC Clumps Occasional H (None) /hpf Ur Squamous Epith Cells 23 H (0-4) /hpf Urine Bacteria Many H (None) /hpf Urine Mucus Moderate H (None) /hpf Urine Opiates Screen (NotDetected) Ur Oxycodone Screen (NotDetected) Urine Methadone Screen (NotDetected) Ur Propoxyphene Screen (NotDetected) Ur Barbiturates Screen (NotDetected) U Tricyclic Antidepress (NotDetected) Ur Phencyclidine Scrn (NotDetected) Ur Amphetamines Screen (NotDetected) U Methamphetamines Scrn (NotDetected) U Benzodiazepines Scrn (NotDetected) Urine Cocaine Screen (NotDetected) U Marijuana (THC) Screen (NotDetected) Influenza Type A RNA Not Detected (Not Detectd) Influenza Type B (PCR) Not Detected (Not Detectd) Critical Care Time Critical Care Time: Yes Total Critical Care Time: 35 Disposition Clinical Impression: Subarachnoid hemorrhage, Intracranial hemorrhage, Delirium due to general medical condition, UTI (urinary tract infection) Disposition: ADMITTED IP TO THIS [facility] Condition: Stable Is patient prescribed a controlled substance at d/c from ED?: No Referrals: Gage Gastelum MD [Primary Care Provider] - 1-2 days Decision to Admit Reason: Admit from EC Decision Date: 06/22/19 Decision Time: 13:38
[2019-06-22 11:15] LABS: HGB 8.3 gm/dL (11.4-16.0)
--- NOTE | 2019-06-22 11:19 | CT ---
EXAMINATION TYPE: CT brain wo con DATE OF EXAM: 06/22/2019 COMPARISON: 06/18/2019 INDICATION: increased lethargy, recent fall DLP: 1172.4 mGycm, Automated exposure control for dose reduction was used. CONTRAST: None CT of the brain is performed utilizing 3 mm thick sections through the posterior fossa and 3 mm thick sections through the remaining calvarium. Study is performed within 24 hours of arrival to the hosp ital. Within the right frontal lobe region there is some faint increased density which could be some minima l subarachnoid hemorrhage post trauma. Small periventricular intraparenchymal hemorrhage may be prese nt. This best visualized series 201 image 37. No significant mass effect is evident. Some minimal inc reased density may be within sulci on the right frontal lobe. Additional areas of acute hemorrhage or not identified. The intrapeduncular cistern appears clear. Ve ntricles are clear. No extra-axial collections displacing the brain are evident. No mass lesion is evident. No acute infarcts are evident. There is mild periventricular white matter hypodensity, most likely on the basis of chronic white matter ischemic change. This is stable from comparison. Ventricles and sulci are prominent for the patient age. Paranasal sinuses and mastoid air cells within the [id number] are clear. There is prominent soft tissue swelling over the right cheek in the large hematomas in the right fron varun region. No underlying fractures are evident. This present previously and appears stable. IMPRESSIONS: 1. Suggestion of some minimal subarachnoid hemorrhage and possible intraparenchymal posttraumatic h emorrhage in the right periventricular white matter. Report was called case discussed with the emerge ncy room physician Dr Power at the time of interpretation 1114 hours 06/22/2019. 2. Atrophy with periventricular white matter ischemic changes. 3. Soft tissue swelling right cheek and right frontal region.
--- NOTE | 2019-06-22 11:21 | XR ---
EXAMINATION TYPE: XR chest 2V DATE OF EXAM: 06/22/2019 COMPARISON: 04/03/2019 INDICATION: Altered mental status TECHNIQUE: Frontal and lateral views of the chest are obtained. FINDINGS: The heart size is normal. Mediastinum is stable. The pulmonary vasculature is normal. The lungs are clear. IMPRESSION: 1. No acute pulmonary process.
[2019-06-22 11:23] LABS: Albumin 3.2 g/dL (3.5-5.0); Calcium 9.3 mg/dL (8.4-10.2); Potassium 4.1 mmol/L (3.5-5.1); Total Protein 6.3 g/dL (6.3-8.2)
--- NOTE | 2019-06-22 11:24 | XR ---
Left knee HISTORY: Trauma and pain 3 views of left knee correlated to prior exam 06/18/2014 There is marked arthropathy with tricompartmental marginal spurring, chondrocalcinosis, joint space l oss. Bone mineralization is reduced. Alignment is maintained. There is soft tissue swelling and overl rodrick artifact. Small joint effusion is suspected. There may be small loose bodies. Vascular calcifica tions again noted. Question Patrick-Stieda, ossific density present along the medial distal left f emur at the metaphyseal level on the frontal view. IMPRESSION: Soft tissue swelling. No fracture or dislocation evident. Correlate for crystal depositio n arthropathy.
[2019-06-22 11:32] LABS: Partial Thromboplastin Time 52.7 sec (22.0-30.0); Prothrombin Time 29.6 sec (9.0-12.0)
[2019-06-22 12:02] LABS: Amphetamine Screen,Urine Not Detected (NotDetected); Barbiturate Screen,Urine Not Detected (NotDetected); Benzodiazepines Screen,Urine Detected (NotDetected); Cocaine Screen,Urine Not Detected (NotDetected); Methadone Screen, Urine Not Detected (NotDetected); Opiate Screen,Urine Not Detected (NotDetected); Oxycodone Screen, Urine Not Detected (NotDetected); Phencyclidine Screen,Urine Not Detected (NotDetected); Tricyclic Antidepressant,Urine Not Detected (NotDetected); Urn Cannabinoid Scrn Not Detected (NotDetected)
[2019-06-22] MEDS ORDERED: cefTRIAXone IN SWFI 1,000 MG/10 ML SYRINGE IVP STA (12:28)
[2019-06-22 12:44] LABS: Appearance,Urine Turbid (Clear); Bacteria,Urine Many /hpf; Bilirubin,Urine Negative (Negative); Blood,Urine Moderate (Negative); Color,Urine Yellow; Glucose,Urine (UA) Trace (Negative); Ketones,Urine 1+ (Negative); Leukocyte Esterase,Urine Large (Negative); Mucus,Urine Moderate /hpf; Nitrite,Urine Positive (Negative); PH, Urine 7.5 (5.0-8.0); Protein,Urine 1+ (Negative); RBC,Urine 41 /hpf (0-5); Squamous Epithelial Cell,Urine 23 /hpf (0-4); WBC,Urine >182 /hpf (0-5)
[2019-06-22] MEDS ORDERED: NALOXONE 0.4 MG/ML 1 ML VIAL IV PRN (13:29)
[2019-06-22] MEDS ORDERED: ACETAMINOPHEN TAB 325 MG TAB PO PRN (14:27)
[2019-06-22] MEDS ORDERED: MENTHOL-ZINC OXIDE OINT 113 GM TUBE TOPICAL PRN (14:27)
[2019-06-22] MEDS ORDERED: ARTIFICIAL TEARS-HYPROMELLOSE DROPS 15 ML BTL BOTH EYES PRN (14:27)
[2019-06-22] MEDS ORDERED: LOPERAMIDE 2 MG CAP PO PRN (14:27)
[2019-06-22] MEDS ORDERED: ONDANSETRON 4 MG TAB PO PRN (14:27)
[2019-06-22] MEDS ORDERED: DIAZEPAM 5 MG TAB PO PRN (14:27)
--- NOTE | 2019-06-22 14:46 | P.CNNES ---
History of Present Illness Consult date: 06/22/19 Requesting physician: Alec Power Reason for Consult: Intracranial hemorrhage History of Present Illness: Patient is a 73-year-old female, a resident of jail had initially presented to the ER on 06/18/2019 from a jail status post fall. 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 She fell from her wheelchair, face forward, striking her forehead. She is on Coumadin with history of DVT and PE. There was no loss of consciousness. Patient had a large right frontal hematoma with no active bleeding. Patient had very orbital ecchymosis on the right. Patient had a computed tomography scan of head, which reported no acute process, only subcutaneous hematoma. Patient was evaluated in the ER and then transferred back to the jail. Patient presented again to the ER from jail with 3 day history of decreased level of consciousness and altered mental status. Patient underwent Computed tomography scan of head showed suggestion of small minimal subarachnoid hemorrhage and possible intraparenchymal posttraumatic hemorrhage in the right periventricular white matter. Atrophy with periventricular white matter ischemic change. Soft tissue swelling right cheek and right frontal region. Chest x-ray showed no acute process. EKG with sinus tachycardia. ST and T-wave abnormality, consider inferior ischemia. X-ray of the left knee showed soft tissue swelling, no fracture or dislocation. Correlate for crystalline deposits and arthropathy. Patient's blood test shows WBC 14.0 hemoglobin 8.3, platelets 402. ESR 97 on 04/03/2019. INR 3.0. Basic metabolic panel normal. Hemoglobin A1c 5.6 on 03/29/2018. Liver panel normal. Ammonia normal. Patient's vitamin testing from 03/21/2019 showed be 177 normal, B6 low 3. Vitamin B12 523, folate 17.0 and TSH is normal. UA showed large amount of leukocyte esterase, 41 RBC Wednesday 2 WBCs. Influenza screen negative. Urine drug screen shows positive benzo. Blood and urine cultures pending. Patient continues to be somewhat confused, mumbling at this time. Please refer to examination below. Patient denies diabetes, denies tobacco use or alcohol. 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 Review of Systems Patient does have mild headache. Denies diplopia. Does have loss of vision left eye, chronic. Denies chest pain shortness of breath wheezing or cough. Significant pain in the right arm. Patient has right above-knee amputation. Denies nausea vomiting diarrhea. Patient has fatigue. Past Medical History Past Medical History: Deep Vein Thrombosis (DVT), Eye Disorder, GERD/Reflux, Hypertension, Osteoarthritis (OA), Pulmonary Embolus (PE) Additional Past Medical History / Comment(s): DDD, gastroenteritis, h-pylori, gout, TMJ, bulging discs, left eye blind, macular degeneration BL eyes, multiple falls (not recent), transfers w/ walker to wheelchair, chronic UTI, osteoporos is, hypoglycemia chronic osteomyelitis of the right femur and infection of the above-knee amputation stump History of Any Multi-Drug Resistant Organisms: VRE Date of last positivie culture/infection: August 2013 MDRO Source:: Right knee Past Surgical History: Hysterectomy, Joint Replacement, Orthopedic Surgery, Tubal Ligation Additional Past Surgical History / Comment(s): Sternocleidomastoidectomy (right), right shoulder rotator cuff, rectocele/cystocele, right foot - Varma's neuroma/hammer toe, left outer forearm arthroscopy and shortening left ulna - plates and screws inserted, right wrist bundle of nerves , right knee arthroscopy/realignment of tendon/tibia/kneecap, 07-20-13 right knee replacement, 08-10-13 large hematoma removed, BL vitrectomies, BL cataract surgery, right right femur benign tumor removed, left foot bone spur. Right AKA done on Feb 13 per Pt of this year. Past Anesthesia/Blood Transfusion Reactions: Postoperative Nausea & Vomiting (PONV) Additional Past Anesthesia/Blood Transfusion Reaction / Comment(s): no complications with prior blood transfusion Past Psychological History: Anxiety, Depression Smoking Status: Former smoker Past Alcohol Use History: None Reported Past Drug Use History: None Reported - Past Family History Brother(s) Family Medical History: Cancer, Congestive Heart Failure (CHF) Additional Family Medical History / Comment(s): Heart problems, CABG, oral CA, pacemaker/defib. Father Family Medical History: Congestive Heart Failure (CHF), Hyperlipidemia, Hypertension, Myocardial Infarction (MA) Additional Family Medical History / Comment(s): at 97 years old. Mother Family Medical History: Congestive Heart Failure (CHF), CVA/TIA Additional Family Medical History / Comment(s): Pacemaker - January 16 at age 94 a few days after CVA. Medications and Allergies Home Medications Medication Instructions Recorded Confirmed Type Allopurinol [Zyloprim] 300 mg PO HS@209908/21/14 06/22/19 History Multivitamins, Thera [Multivitamin 1 tab PO HS@209911/17/15 06/22/19 History (formulary)] Acetaminophen Tab [Tylenol] 650 mg PO Q6H PRN 02/02/18 06/22/19 History Isosorbide Mononitrate ER [Imdur] 30 mg PO DAILY@0900 02/02/18 06/22/19 History Pravastatin Sodium [Pravachol] 20 mg PO HS@209902/02/18 06/22/19 History PARoxetine HCL [Paxil] 30 mg PO BID@0900,1700 03/27/18 06/22/19 History Aspirin 325 mg PO DAILY@0900 03/18/19 06/22/19 History Calcium Carbonate/Vitamin D3 1 tab PO BID@0900,209903/18/19 06/22/19 History [Calcium 600-Vit D3 400 Tablet] LORazepam [Ativan] 0.5 mg PO BID@0900,1700 03/18/19 06/22/19 History Ondansetron HCl [Zofran] 4 mg PO Q6H PRN 03/18/19 06/22/19 History Artificial Tears-Hypromellose 1 drop BOTH EYES Q1H PRN 06/18/19 06/22/19 History [Artificial Tear Drops] Cyanocobalamin [Vitamin B-12] 500 mcg PO DAILY@0900 06/18/19 06/22/19 History Ferrous Sulfate [Feosol] 325 mg PO DAILY@0900 06/18/19 06/22/19 History Folic Acid 1 mg PO HS@209906/18/19 06/22/19 History Lisinopril [Zestril] 20 mg PO BID@0900,1700 06/18/19 06/22/19 History Loperamide [Imodium] 2 mg PO Q6H PRN 06/18/19 06/22/19 History Magnesium Oxide 400 mg PO BID@0900,209906/18/19 06/22/19 History Menthol-Zinc Oxide Oint 1 applic TOPICAL Q6H PRN 06/18/19 06/22/19 History [Calmoseptine Oint] Metoprolol Succinate (ER) [Toprol 50 mg PO DAILY@0900 06/18/19 06/22/19 History Xl] Pantoprazole Sodium [Protonix] 40 mg PO DAILY@0600 06/18/19 06/22/19 History Potassium Chloride ER [K-Dur 20] 20 meq PO DAILY@0900 06/18/19 06/22/19 History Warfarin [Coumadin] 2 mg PO HS@1700 06/18/19 06/22/19 History Diazepam [Valium] 5 mg PO Q6H PRN 06/22/19 06/22/19 History Allergies Allergy/AdvReac Type Severity Reaction Status Date / Time adhesive Allergy Rash/Hives Verified 06/22/19 12:21 carbamazepine [From Tegretol] Allergy Rash/Hives Verified 06/22/19 12:21 carisoprodol [From Soma] Allergy lowers b/p Verified 06/22/19 12:21 quickly & passes out corn Allergy Unknown Verified 06/22/19 12:21 doxycycline calcium Allergy Rash/Hives Verified 06/22/19 12:21 [From Vibramycin] doxycycline hyclate Allergy Rash/Hives,vomited Verified 06/22/19 12:21 [From Vibramycin] blood doxycycline monohydrate Allergy Rash/Hives,vomited Verified 06/22/19 12:21 [From Vibramycin] blood erythromycin base Allergy Rash/Hives,vomited Verified 06/22/19 12:21 [From E-Mycin] blood hydrocodone bitartrate Allergy abdominal Verified 06/22/19 12:21 [From Vicodin] pain, diarrhea milk Allergy Unknown Verified 06/22/19 12:21 NSAIDS (Non-Steroidal Allergy Swelling Verified 06/22/19 12:21 Anti-Inflamma piroxicam [From Feldene] Allergy Swelling Verified 06/22/19 12:21 ciprofloxacin [From Cipro] AdvReac Nausea & Verified 06/22/19 12:21 Vomiting wheat AdvReac Diarrhea Verified 06/22/19 12:21 Physical Examination - Vital Signs Vital Signs: Vital Signs Temp Pulse Resp BP Pulse Ox 06/22/19 12:30 109 H 21 150/84 100 06/22/19 12:00 106 H 20 147/93 100 06/22/19 11:39 104 H 19 100 06/22/19 10:36 100 F H 100 18 140/95 100 Intake and Output 06/21/19 06/22/19 06/22/19 22:59 06:59 14:59 Other: Weight 120.202 kg On examination patient is an elderly female, laying comfortably in the bed. Patient is in no respiratory distress. Speech is clear with no obvious aphasia or dysarthria. Patient states that she is in [facility] in [place]. Does not know current month or the year. She knows name of the current president and that she is 73 years of age. Patient sometimes mumbles, difficult to understand. On cranial examination patient is legally blind in the left eye. Patient has periorbital ecchymosis. Right pupil is round and reacting. She has good visual field in the right eye. Her face is symmetric and tongue protrudes the midline. 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 Patient does wiggle her left foot and leg, but did not cooperate. Patient has right above- knee amputation. Sensory to touch is equal. Plantar is withdrawal on the left. Tone and bulk of muscles normal. No obvious bruit S1 and S2 audible. Results - Laboratory Findings CBC and BMP: 06/22/19 10:39 06/22/19 10:39 Abnormal Lab Findings: Abnormal Labs 06/22/19 06/22/19 06/22/19 10:33 10:39 10:39 WBC 14.0 H RBC 2.71 L Hgb 8.3 L D Hct 25.7 L RDW 16.4 H Neutrophils # 11.9 H Lymphocytes # 0.9 L PT 29.6 H INR 3.0 H APTT 52.7 H Carbon Dioxide BUN Glucose POC Glucose (mg/dL) 119 H Total Bilirubin Albumin Urine Appearance Urine Protein Urine Glucose (UA) Urine Ketones Urine Blood Urine Nitrite Ur Leukocyte Esterase Urine RBC Urine WBC Urine WBC Clumps Ur Squamous Epith Cells Urine Bacteria Urine Mucus U Benzodiazepines Scrn 06/22/19 06/22/19 06/22/19 10:39 11:40 11:40 WBC RBC Hgb Hct RDW Neutrophils # Lymphocytes # PT INR APTT Carbon Dioxide 31 H BUN 28 H Glucose 122 H POC Glucose (mg/dL) Total Bilirubin 2.0 H Albumin 3.2 L Urine Appearance Turbid H Urine Protein 1+ H Urine Glucose (UA) Trace H Urine Ketones 1+ H Urine Blood Moderate H Urine Nitrite Positive H Ur Leukocyte Esterase Large H Urine RBC 41 H Urine WBC >182 H Urine WBC Clumps Occasional H Ur Squamous Epith Cells 23 H Urine Bacteria Many H Urine Mucus Moderate H U Benzodiazepines Scrn Detected H Assessment and Plan Assessment: * Altered mental status, likely due to metabolic encephalopathy. Patient has probable acute UTI. Patient possibly has underlying cognitive impairment. * Abnormal CAT scan with evidence of very small right subarachnoid hemorrhage, and small intraparenchymal hemorrhage with no mass effect or midline shift. Patient has history of a fall 5 days ago on 06/18/2019. * History of DVT and PE. * History of right above-knee amputation * Acute UTI * Anemia. * Vitamin B6 deficiency Plan: * Patient's Coumadin has been held. * Repeat computed tomography scan of head in the morning. Once the hemorrhage resolves, then patient can be resumed on Coumadin. However if the risk of pulmonary embolism is very high, then may resume Coumadin and keep INR between 2-2.5. The hemorrhage is very small, and stable since 06/18/2019. * Treatment of UTI as per IM. * Patient has history of vitamin B6 deficiency. Will start vitamin B6 50 mg d aily. Continue other vitamins. * We will follow.
[2019-06-22] MEDS: ACETAMINOPHEN TAB 325 MG TAB PO PRN (15:40)
[2019-06-22] MEDS: LISINOPRIL 20 MG TAB PO SCH (15:40)
[2019-06-22] MEDS: PARoxetine 10 MG TAB PO SCH (15:40)
[2019-06-22] MEDS: SODIUM CHLORIDE 0.9% 1,000 ML IV SCH (15:41)
[2019-06-22] MEDS ORDERED: METOPROLOL SUCCINATE (ER) 50 MG TAB.ER.24H PO STA (16:42)
--- NOTE | 2019-06-22 17:26 | P.HPIM ---
History of Present Illness H&P Date: 06/22/19 Maria Teresa Celeste is a 73-year-old female resident of [facility] on the [facility] who sustained a fall with head trauma on 06/18/2019 at that time she was sent to emergency room and had a computed tomography scan of the brain and the cervical spine without contrast, she had evidence of a large frontal scalp hematoma and right periorbital hematoma but no intracranial bleeding, she was sent back to [facility] on the [facility]. On 06/22/2019 patient was noticed to have worsening mental status was more somnolence and less responsiveness by the nursing staff she was sent back to emergency room repeat computed tomography scan of the brain revealed evidence of minimal subarachnoid hemorrhage and possible intraparenchymal hemorrhage in the right periventricular white matter. Possibility of transferring patient to a tertiary care center was discussed in details in the emergency room, however due to the fact that trauma happened several days ago, and due to the fact that there is an epidemic of Covid 19 infection which is making it very difficult to transfer patient to [facility], and due to patient age and comorbidities which makes intracranial intervention exceedingly difficult, decision was made not to proceed with transferring patient, her son, (and current power of net web application developer since her earlier this month) who was in the emergency room was in agreement of this decision. Patient was admitted to telemetry floor and neurology consultation was requested. Patient has a known history of DVT and PE, she was maintained on aspirin and Coumadin, these medications are now on hold. Patient also had evidence of urinary tract infection with sepsis as evidenced by temperature of 102.1 and leukocytosis white blood count was 14.0 and tachycardia was heart rate of 123 Patient will be given a fluid bolus lactic acid level was ordered but not resulted yet, she was given a dose of IV Rocephin in the emergency room Infectious disease consultation was requested, Covid 19 testing will be done due to elevated temperature Past Medical History Past Medical History: Deep Vein Thrombosis (DVT), Eye Disorder, GERD/Reflux, Hy perlipidemia, Hypertension, Memory Impairment, Osteoarthritis (OA), Pulmonary Embolus (PE), Renal Disease Additional Past Medical History / Comment(s): Fall 5 days ago with head trauma, has frontal hematoma, chronic oseomylitis R femur/R total knee with infection with surgery/ 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 History of Any Multi-Drug Resistant Organisms: VRE Date of last positivie culture/infection: August 2013 MDRO Source:: Right knee Past Surgical History: Hysterectomy, Joint Replacement, Orthopedic Surgery, Tubal Ligation Additional Past Surgical History / Comment(s): Sternocleidomastoidectomy ( right), right shoulder rotator cuff, rectocele/cystocele, right foot - Varma's neuroma/hammer toe, left outer forearm arthroscopy and shortening left ulna - plates and screws inserted, right wrist bundle of nerves , right knee arthroscopy/realignment of tendon/tibia/kneecap, R femur rods, R tibia with screws, 07-20-13 right knee replacement/removal and antibiotic spacer placed, 08-10-13 large hematoma removed, BL vitrectomies, BL cataract surgery, right right femur benign tumor removed, left foot bone spur, EGD, colonoscopies,. Right AKA done on Feb 13 per Pt of this year. Past Anesthesia/Blood Transfusion Reactions: Postoperative Nausea & Vomiting (PONV) Additional Past Anesthesia/Blood Transfusion Reaction / Comment(s): no compl ications with prior blood transfusion Smoking Status: Never smoker - Past Family History Brother(s) Family Medical History: Cancer, Congestive Heart Failure (CHF) Additional Family Medical History / Comment(s): Heart problems, CABG, oral CA, pacemaker/defib. Father Family Medical History: Congestive Heart Failure (CHF), Hyperlipidemia, Hypertension, Myocardial Infarction (MS) Additional Family Medical History / Comment(s): at 97 years old. Mother Family Medical History: Congestive Heart Failure (CHF), CVA/TIA Additional Family Medical History / Comment(s): Pacemaker - January 16 at age 94 a few days after CVA. Medications and Allergies Home Medications Medication Instructions Recorded Confirmed Type Allopurinol [Zyloprim] 300 mg PO HS@209908/21/14 06/22/19 History Multivitamins, Thera [Multivitamin 1 tab PO HS@209911/17/15 06/22/19 History (formulary)] Acetaminophen Tab [Tylenol] 650 mg PO Q6H PRN 02/02/18 06/22/19 History Isosorbide Mononitrate ER [Imdur] 30 mg PO DAILY@0900 02/02/18 06/22/19 History Pravastatin Sodium [Pravachol] 20 mg PO HS@209902/02/18 06/22/19 History PARoxetine HCL [Paxil] 30 mg PO BID@0900,1700 03/27/18 06/22/19 History Aspirin 325 mg PO DAILY@0900 03/18/19 06/22/19 History Calcium Carbonate/Vitamin D3 1 tab PO BID@0900,209903/18/19 06/22/19 History [Calcium 600-Vit D3 400 Tablet] LORazepam [Ativan] 0.5 mg PO BID@0900,1700 03/18/19 06/22/19 History Ondansetron HCl [Zofran] 4 mg PO Q6H PRN 03/18/19 06/22/19 History Artificial Tears-Hypromellose 1 drop BOTH EYES Q1H PRN 06/18/19 06/22/19 History [Artificial Tear Drops] Cyanocobalamin [Vitamin B-12] 500 mcg PO DAILY@0900 06/18/19 06/22/19 History Ferrous Sulfate [Feosol] 325 mg PO DAILY@0900 06/18/19 06/22/19 History Folic Acid 1 mg PO HS@209906/18/19 06/22/19 History Lisinopril [Zestril] 20 mg PO BID@0900,1700 06/18/19 06/22/19 History Loperamide [Imodium] 2 mg PO Q6H PRN 06/18/19 06/22/19 History Magnesium Oxide 400 mg PO BID@0900,209906/18/19 06/22/19 History Menthol-Zinc Oxide Oint 1 applic TOPICAL Q6H PRN 06/18/19 06/22/19 History [Calmoseptine Oint] Metoprolol Succinate (ER) [Toprol 50 mg PO DAILY@0900 06/18/19 06/22/19 History Xl] Pantoprazole Sodium [Protonix] 40 mg PO DAILY@0600 06/18/19 06/22/19 History Potassium Chloride ER [K-Dur 20] 20 meq PO DAILY@0900 06/18/19 06/22/19 History Warfarin [Coumadin] 2 mg PO HS@1700 06/18/19 06/22/19 History Diazepam [Valium] 5 mg PO Q6H PRN 06/22/19 06/22/19 History Allergies Allergy/AdvReac Type Severity Reaction Status Date / Time adhesive Allergy Rash/Hives Verified 06/22/19 12:21 carbamazepine [From Tegretol] Allergy Rash/Hives Verified 06/22/19 12:21 carisoprodol [From Soma] Allergy lowers b/p Verified 06/22/19 12:21 quickly & passes out corn Allergy Unknown Verified 06/22/19 12:21 doxycycline calcium Allergy Rash/Hives Verified 06/22/19 12:21 [From Vibramycin] doxycycline hyclate Allergy Rash/Hives,vomited Verified 06/22/19 12:21 [From Vibramycin] blood doxycycline monohydrate Allergy Rash/Hives,vomited Verified 06/22/19 12:21 [From Vibramycin] blood erythromycin base Allergy Rash/Hives,vomited Verified 06/22/19 12:21 [From E-Mycin] blood hydrocodone bitartrate Allergy abdominal Verified 06/22/19 12:21 [From Vicodin] pain, diarrhea milk Allergy Unknown Verified 06/22/19 12:21 NSAIDS (Non-Steroidal Allergy Swelling Verified 06/22/19 12:21 Anti-Inflamma piroxicam [From Feldene] Allergy Swelling Verified 06/22/19 12:21 ciprofloxacin [From Cipro] AdvReac Nausea & Verified 06/22/19 12:21 Vomiting wheat AdvReac Diarrhea Verified 06/22/19 12:21 Physical Exam Vitals: Vital Signs Temp Pulse Pulse Resp BP BP Pulse Ox 06/22/19 15:49 102.1 F H 123 H 20 171/102 100 06/22/19 14:30 116 H 20 06/22/19 14:00 115 H 25 H 178/87 06/22/19 13:30 106 H 16 172/93 06/22/19 13:00 112 H 16 160/89 06/22/19 12:30 109 H 21 150/84 100 06/22/19 12:00 106 H 20 147/93 100 06/22/19 11:39 104 H 19 100 06/22/19 10:36 100 F H 100 18 140/95 100 Intake and Output 06/22/19 06/22/19 06/22/19 06:59 14:59 22:59 Other: Weight 120.202 kg 120.202 kg In general patient is somnolent responsive answering questions by yes or no and quickly goes back to closing her eyes HEENT with significant trauma and hematoma to the face Neck is supple no JVD no goiter no lymphadenopathy Chest exam reveals a few scattered rhonchi no wheezing Cardiac exam reveals regular heart sounds S1 and S2 with tachycardia no gallops no murmurs Abdomen is soft nontender no organomegaly with normal bowel sounds Extremity exam reveals right above-knee amputation and left was 2+ edema Neurological examination mental status as above otherwise no focal neurological deficit at this time Results CBC & Chem 7: 06/22/19 10:39 06/22/19 10:39 Labs: Abnormal Lab Results - Last 24 Hours (Table) 06/22/19 06/22/19 06/22/19 Range/Units 10:33 10:39 10:39 WBC 14.0 H (3.8-10.6) k/uL RBC 2.71 L (3.80-5.40) m/uL Hgb 8.3 L D (11.4-16.0) gm/dL Hct 25.7 L (34.0-46.0) % RDW 16.4 H (11.5-15.5) % Neutrophils # 11.9 H (1.3-7.7) k/uL Lymphocytes # 0.9 L (1.0-4.8) k/uL PT 29.6 H (9.0-12.0) sec INR 3.0 H (<1.2) APTT 52.7 H (22.0-30.0) sec Carbon Dioxide (22-30) mmol/L BUN (7-17) mg/dL Glucose (74-99) mg/dL POC Glucose (mg/dL) 119 H (75-99) mg/dL Total Bilirubin (0.2-1.3) mg/dL Albumin (3.5-5.0) g/dL Urine Appearance (Clear) Urine Protein (Negative) Urine Glucose (UA) (Negative) Urine Ketones (Negative) Urine Blood (Negative) Urine Nitrite (Negative) Ur Leukocyte Esterase (Negative) Urine RBC (0-5) /hpf Urine WBC (0-5) /hpf Urine WBC Clumps (None) /hpf Ur Squamous Epith Cells (0-4) /hpf Urine Bacteria (None) /hpf Urine Mucus (None) /hpf U Benzodiazepines Scrn (NotDetected) 06/22/19 06/22/19 06/22/19 Range/Units 10:39 11:40 11:40 WBC (3.8-10.6) k/uL RBC (3.80-5.40) m/uL Hgb (11.4-16.0) gm/dL Hct (34.0-46.0) % RDW (11.5-15.5) % Neutrophils # (1.3-7.7) k/uL Lymphocytes # (1.0-4.8) k/uL PT (9.0-12.0) sec INR (<1.2) APTT (22.0-30.0) sec Carbon Dioxide 31 H (22-30) mmol/L BUN 28 H (7-17) mg/dL Glucose 122 H (74-99) mg/dL POC Glucose (mg/dL) (75-99) mg/dL Total Bilirubin 2.0 H (0.2-1.3) mg/dL Albumin 3.2 L (3.5-5.0) g/dL Urine Appearance Turbid H (Clear) Urine Protein 1+ H (Negative) Urine Glucose (UA) Trace H (Negative) Urine Ketones 1+ H (Negative) Urine Blood Moderate H (Negative) Urine Nitrite Positive H (Negative) Ur Leukocyte Esterase Large H (Negative) Urine RBC 41 H (0-5) /hpf Urine WBC >182 H (0-5) /hpf Urine WBC Clumps Occasional H (None) /hpf Ur Squamous Epith Cells 23 H (0-4) /hpf Urine Bacteria Many H (None) /hpf Urine Mucus Moderate H (None) /hpf U Benzodiazepines Scrn Detected H (NotDetected) Microbiology - Last 24 Hours (Table) 03/26/20 11:40 Urine Culture - Preliminary Urine,Catheterized Thrombosis Risk Factor Assmnt - Choose All That Apply Any of the Below Risk Factors Present?: Yes Each Factor Represents 1 point: Medical pt on bed rest, Obesity (BMI >25) Other Risk Factors: Yes Each Risk Factor Represents 2 Points: Age 61-74 years, Patient confined to bed Each Risk Factor Represents 3 Points: Family history of DVT/PE Other congenital or acquired thrombophilia - If yes, enter type in comment: No Each Risk Factor Represents 5 Points: Stroke (< 1 month) Thrombosis Risk Factor Assessment Total Risk Factor Score: 14 Thrombosis Risk Factor Assessment Level: High Risk Assessment and Plan Plan: 1. Recent fall with head trauma 5 days ago with computed tomography scan revealing minimal subarachnoid hemorrhage and possible intra-parenchymal hemorrhage in the right periventricular white matter. At this time aspirin and Coumadin are held, neurology consultation was requested. I have discussed this case in details with her son who is the power of net web application developer at this time. Decision at this time is not to transfer patient to a tertiary care center due to the fact that trauma happened 5 days ago and due to current conditions with Covid 19 epidemic. Son is in agreement not to transfer patient. 2. Urinary tract infection with sepsis, urine culture and blood cultures requested, patient started on IV Rocephin, infectious disease consultation requested 3. Mental status changes, due to metabolic encephalopathy related to sepsis, and possibly to intracranial bleeding, will monitor closely 4. Underlying history of hypertention, home blood pressure medication are resumed will monitor 5. Tachycardia, will give fluid bolus 250 mL and reassess medications including metoprolol were resumed 6. Febrile illness was temperature of 102, could be related to urinary tract infection however will check Covid 19 Will consult infectious disease 7. 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 8. Previous history of DVT and PE maintained on Coumadin at this time Coumadin is on hold Will resume when advised by neurology 9. Underlying history of anemia. At this time patient is admitted to telemetry floor, she is started on IV fluid and IV antibiotics Neurology consultation and infectious disease consultation are requested Coumadin and aspirin are on hold At this time patient remains a full code which will be discussed further with her son Prognosis is guarded
[2019-06-22] MEDS ORDERED: SODIUM CHLORIDE 0.9% 250 ML IV ONE (18:45)
[2019-06-22] MEDS: ALLOPURINOL 300 MG TAB PO SCH (21:08)
[2019-06-22] MEDS: CALCIUM CARB-VIT D 500MG-200UN 1 EACH TAB PO SCH (21:09)
[2019-06-22] MEDS: MULTIVITAMINS, THERA 1 EACH TAB PO SCH (21:09)
[2019-06-22] MEDS: MAGNESIUM OXIDE 400 MG TAB PO SCH (21:09)
[2019-06-22] MEDS: FOLIC ACID 1 MG TAB PO SCH (21:09)
[2019-06-22] MEDS: PRAVASTATIN SODIUM 20 MG TAB PO SCH (21:09)
--- NOTE | 2019-06-22 23:56 | CONS ---
CONSULTATION DATE OF SERVICE: 06/22/2019 REASON FOR CONSULTATION: Fever and mental status changes. HISTORY OF PRESENT ILLNESS: The patient is a 73-year-old female with a past medical history significant for complicated infection to the right knee requiring multiple surgeries with recent right [id number] amputation. She subsequently had a problem with wound dehiscence and wound infection. The patient, who is a [place] [facility] resident, was sent to [facility] ER for evaluation of mental status changes. Apparently the patient did have a fall 5 days ago with resulting trauma to the head, and this patient did have evidence of bilateral periorbital bruising. The patient has been on Coumadin. The patient was noted to be afebrile on today's visit, for which the patient was sent to the ER. The patient on arrival in the ER did have a fever of 100 to 102.1 degrees Fahrenheit. She has been tachycardic. The patient denies having any headache or URI symptoms. No chest pain, shortness of breath or cough. No abdominal pain or any diarrhea. Denies any pain to the right AK stump. On admission the patient had an elevated white count of 14,000. Kidney function was normal. UA has been positive. The patient has been started on Rocephin. Infectious Disease was consulted for further recommendations regarding antibiotic therapy. REVIEW OF SYSTEMS: Positive points have been mentioned in HPI. Rest of the systems are negative. PAST MEDICAL HISTORY: DVT, recurrent infection to the right knee, hypertension, hyperlipidemia, osteoarthritis, pulmonary embolism. PAST SURGICAL HISTORY: Multiple surgeries on the right knee, right [id number] amputation, tubal ligation, hysterectomy. SOCIAL HISTORY: No history of smoking, drinking or drug use. FAMILY HISTORY: Mother with history of oral cancer and coronary artery disease. Father with history of congestive heart failure, hyperlipidemia, though of old age. ALLERGIES: Include DOXYCYCLINE, CARBAMAZEPINE. CURRENT MEDICATIONS: Tylenol, Zyloprim, Os-Willis with D, Rocephin 1 gram daily, iron sulfate, Zestril, Imodium, Theragran, Narcan, Paxil. PHYSICAL EXAMINATION: On examination, her blood pressure is 136/83 with a pulse of 106, temperature 99.5. She is 97% on room air. General description is an elderly female lying in bed in no distress. No tachypnea or accessory muscle of respiration use. HEENT examination: The patient did have bilateral periorbital bruising. Oral mucosa membrane is dry. No pharyngeal erythema or thrush. NECK: Trachea is central. No thyromegaly. LUNGS: Unlabored breathing. Clear to auscultation anteriorly. No wheeze or crackle. HEART: S1, S2. Regular rate and rhythm. ABDOMEN: Soft. No tenderness. No guarding or rigidity. EXTREMITIES: No edema of the feet. Examination of the right AK stump looks clean, with no slough tissue, surrounding swelling or redness or any drainage. Neurologically the patient is awake and alert, oriented x3. Mood and affect normal. LABS/IMAGING: Hemoglobin is 8.3, white count 14,000. BUN of 28, creatinine 0.89. Urine has been positive. Urine drug screen positive for benzodiazepines. Influenza was negative. Chest x-ray with no acute pulmonary infiltrate. DIAGNOSTIC IMPRESSION AND PLAN: Patient admitted to hospital with sepsis in this patient who did have a fever and elevated white count. Source is likely urinary tract infection in this patient who has a history of recurrent UTI. Patient currently has no other obvious clinical focus of infection. No respiratory symptoms. Abdomen was soft. Right AKA stump looks clean. PLAN: 1. Rocephin 1 gram IV piggyback daily. 2. IV fluids. 3. Aquacel Silver dressing to the right AK stump. 4. Will follow her clinical condition and culture to further adjust medication if needed. Thank you for this consultation. Will follow this patient along with you. MMODL / IJN: [id number] /
[2019-06-23] MEDS: SODIUM CHLORIDE 0.9% 1,000 ML IV SCH ×2 (02:56→19:48)
[2019-06-23] MEDS: PANTOPRAZOLE 40 MG TABLET PO SCH (05:29)
[2019-06-23] MEDS: CYANOCOBALAMIN 500 MCG TAB PO SCH (09:16)
[2019-06-23] MEDS: LISINOPRIL 20 MG TAB PO SCH ×2 (09:16→16:56)
[2019-06-23] MEDS: POTASSIUM CHLORIDE ER 20 MEQ TAB.ER PO SCH (09:16)
[2019-06-23] MEDS: FERROUS SULFATE 325 MG TAB PO SCH (09:16)
[2019-06-23] MEDS: CALCIUM CARB-VIT D 500MG-200UN 1 EACH TAB PO SCH ×2 (09:16→20:01)
[2019-06-23] MEDS: ISOSORBIDE MONONITRATE ER 30 MG TAB.ER.24H PO SCH (09:16)
[2019-06-23] MEDS: MAGNESIUM OXIDE 400 MG TAB PO SCH ×2 (09:16→20:01)
[2019-06-23] MEDS: PARoxetine 10 MG TAB PO SCH ×2 (09:17→16:56)
--- NOTE | 2019-06-23 09:27 | CT ---
EXAMINATION TYPE: CT brain wo con DATE OF EXAM: 06/23/2019 COMPARISON: 06/22/2019 HISTORY: 73-year-old female intracranial hemorrhage TECHNIQUE: Examination was done in axial plane without intravenous contrast. Coronal and sagittal r econstructions performed. CT DLP: 1172.4 mGycm Automated exposure control for dose reduction was used. FINDINGS: There is no evidence of acute intracranial hemorrhage, acute ischemic changes, mass, mass-effect, or extra-axial fluid collection. There is no effacement of cerebral sulci or basal subarachnoid cister ns. There is no hydrocephalus. There is no midline shift. Fierro-white matter distinction is preserv ed. Liquefying large right frontal scalp hematoma measuring 3.3 x 1.8 cm. No underlying calvarial fractur e. Residual mild lateral right periorbital soft tissue contusion. Vague cortical based curvilinear hyperdensity in the anterior right frontal lobe is redemonstrated bu t less pronounced as compared to 06/22/2019. An additional small hyperdense focus adjacent to the ante rolateral body of the right lateral ventricle is no longer well seen.. Mild central cerebral atrophy and moderate white matter hypodensities in posterior hemispheres redemo nstrated. Some choroidal/retinal calcifications noted in the left lobe. Paranasal sinuses and mastoid air cells are well pneumatized. IMPRESSION: 1. Small amount of faint subarachnoid blood/cortical contusions anterior right frontal lobe, less pro nounced as compared to 06/22/2019. No mass effect or midline shift. 2. Similar central cerebral atrophy and changes of chronic small vessel ischemic disease. 3. Liquefying large right frontal scalp hematoma measuring 3.3 x 1.8 cm and residual lateral right pe riorbital soft tissue contusion.
--- NOTE | 2019-06-23 12:02 | P.PN ---
Subjective Progress Note Date: 06/23/19 Patient continues to be delirious, mumbling, not able to provide any history. Could not understand if she is complaining of anything. Objective - Vital Signs Vital signs: Vital Signs Temp 102.4 F H 06/23/19 08:00 Pulse 116 H 06/23/19 08:00 Resp 16 06/23/19 11:07 BP 173/86 06/23/19 08:00 Pulse Ox 97 06/23/19 08:00 Intake & Output 06/22/19 06/23/19 06/23/19 18:59 06:59 18:59 Intake Total 180 Balance 180 Weight 120.202 kg 95.5 kg Intake: Oral 180 Other: # Voids 1 - Exam Patient continues to have right frontal subcutaneous hematoma. I tried to check for visual field involving the left eye, but could not do it. Patient appears very encephalopathic, examination could not be performed. - Labs CBC & Chem 7: 06/22/19 10:39 06/22/19 10:39 Labs: Abnormal Lab Results - Last 24 Hours (Table) 06/22/19 06/22/19 Range/Units 11:40 11:40 Urine Appearance Turbid H (Clear) Urine Protein 1+ H (Negative) Urine Glucose (UA) Trace H (Negative) Urine Ketones 1+ H (Negative) Urine Blood Moderate H (Negative) Urine Nitrite Positive H (Negative) Ur Leukocyte Esterase Large H (Negative) Urine RBC 41 H (0-5) /hpf Urine WBC >182 H (0-5) /hpf Urine WBC Clumps Occasional H (None) /hpf Ur Squamous Epith Cells 23 H (0-4) /hpf Urine Bacteria Many H (None) /hpf Urine Mucus Moderate H (None) /hpf U Benzodiazepines Scrn Detected H (NotDetected) Microbiology - Last 24 Hours (Table) 06/22/19 11:40 Urine Culture - Preliminary Urine,Catheterized Assessment and Plan Assessment: * Altered mental status, likely due to metabolic encephalopathy. Patient has probable acute UTI. Patient possibly has underlying cognitive impairment. * Abnormal CAT scan with evidence of very small right subarachnoid hemorrhage, and small intraparenchymal hemorrhage with no mass effect or midline shift. Patient has history of a fall 5 days ago on 06/18/2019. * History of DVT and PE. * History of right above-knee amputation * Acute UTI * Anemia. * Vitamin B6 deficiency Plan: * Repeat computed tomography scan of head from this morning showed small amount of faint subarachnoid blood/cortical contusion anterior right frontal lobe, less pronounced as compared to 06/22/2019 report. No mass effect or midline shift. Similar central cerebral atrophy and changes of chronic small vessel ischemic disease. Patient's Coumadin has been held since yesterday. * May resume Coumadin from a.m., particularly if the risk of pulmonary embolism is very high. Keep INR between 2-2.5. The hemorrhage is very small, and barely visible at this point. Repeat computed tomography scan of head in one week. * Treatment of UTI as per IM/ID. * Patient has history of vitamin B6 deficiency. Will start vitamin B6 50 mg mar ly. Continue other vitamins. * Neurology coverage not available on the weekend.
[2019-06-23] MEDS: METOPROLOL SUCCINATE (ER) 50 MG TAB.ER.24H PO SCH (12:03)
[2019-06-23] MEDS: PYRIDOXINE 50 MG TAB PO SCH (12:04)
[2019-06-23] MEDS: ACETAMINOPHEN TAB 325 MG TAB PO PRN ×2 (12:04→16:56)
--- NOTE | 2019-06-23 12:43 | P.PN ---
Subjective Progress Note Date: 06/23/19 Maria Teresa Celeste is a 73-year-old female resident of [facility] on the [facility] who sustained a fall with head trauma on 06/18/2019 at that time she was sent to emergency room and had a computed tomography scan of the brain and the cervical spine without contrast, she had evidence of a large frontal scalp hematoma and right periorbital hematoma but no intracranial bleeding, she was sent back to [facility] on the [facility]. On 06/22/2019 patient was noticed to have worsening mental status was more somnolence and less responsiveness by the nursing staff she was sent back to emergency room repeat computed tomography scan of the brain revealed evidence of minimal subarachnoid hemorrhage and possible intraparenchymal hemorrhage in the right periventricular white matter. Possibility of transferring patient to a tertiary care center was discussed in details in the emergency room, however due to the fact that trauma happened several days ago, and due to the fact that there is an epidemic of Covid 19 infection which is making it very difficult to transfer patient to [facility], and due to patient age and comorbidities which makes intracranial intervention exceedingly difficult, decision was made not to proceed with transferring patient, her son, (and current power of ground water pump installer since her earlier this month) who was in the emergency room was in agreement of this decision. Patient was admitted to telemetry floor and neurology consultation was requested. Patient has a known history of DVT and PE, she was maintained on aspirin and Coumadin, these medications are now on hold. Patient also had evidence of urinary tract infection with sepsis as evidenced by temperature of 102.1 and leukocytosis white blood count was 14.0 and tachycardia was heart rate of 123 Patient will be given a fluid bolus lactic acid level was ordered but not resulted yet, she was given a dose of IV Rocephin in the emergency room Infectious disease consultation was requested, Covid 19 testing will be done due to elevated temperature On 06/23/2019 patient was seen and examined on the medical floor she is somnolent and responsive she answers questions briefly but goes back to sleep she is denying any pain or discomfort at this time she is denying shortness of breath or cough she is still having spikes of temperature to 102.4 neurology input reviewed will restart Coumadin tomorrow. Objective - Vital Signs Vital signs: Vital Signs Temp 101.2 F H 06/23/19 12:00 Pulse 129 H 06/23/19 12:00 Resp 16 06/23/19 12:00 BP 135/73 06/23/19 12:00 Pulse Ox 98 06/23/19 12:00 Intake & Output 06/22/19 06/23/19 06/23/19 18:59 06:59 18:59 Intake Total 180 Balance 180 Weight 120.202 kg 95.5 kg Intake: Oral 180 Other: # Voids 1 - Exam In general patient is somnolent responsive answering questions by yes or no and quickly goes back to closing her eyes HEENT with significant trauma and hematoma to the face Neck is supple no JVD no goiter no lymphadenopathy Chest exam reveals a few scattered rhonchi no wheezing Cardiac exam reveals regular heart sounds S1 and S2 with tachycardia no gallops no murmurs Abdomen is soft nontender no organomegaly with normal bowel sounds Extremity exam reveals right above-knee amputation and left was 2+ edema Neurological examination mental status as above otherwise no focal neurological deficit at this time - Labs CBC & Chem 7: 06/22/19 10:39 06/22/19 10:39 Labs: Abnormal Lab Results - Last 24 Hours (Table) 06/22/19 Range/Units 11:40 Urine Appearance Turbid H (Clear) Urine Protein 1+ H (Negative) Urine Glucose (UA) Trace H (Negative) Urine Ketones 1+ H (Negative) Urine Blood Moderate H (Negative) Urine Nitrite Positive H (Negative) Ur Leukocyte Esterase Large H (Negative) Urine RBC 41 H (0-5) /hpf Urine WBC >182 H (0-5) /hpf Urine WBC Clumps Occasional H (None) /hpf Ur Squamous Epith Cells 23 H (0-4) /hpf Urine Bacteria Many H (None) /hpf Urine Mucus Moderate H (None) /hpf Microbiology - Last 24 Hours (Table) 06/22/19 11:40 Urine Culture - Preliminary Urine,Catheterized Assessment and Plan Plan: 1. Recent fall with head trauma 5 days ago with computed tomography scan revealing minimal subarachnoid hemorrhage and possible intra-parenchymal hemorrhage in the right periventricular white matter. At this time aspirin and Coumadin are held, neurology consultation was requested. I have discussed this case in details with her son who is the power of ground water pump installer at this time. Decision at this time is not to transfer patient to a tertiary care center due to the fact that trauma happened 5 days ago and due to current conditions with Covid 19 epidemic. Son is in agreement not to transfer patient. 2. Urinary tract infection with sepsis, urine culture and blood cultures requested, patient started on IV Rocephin, infectious disease consultation requested 3. Mental status changes, due to metabolic encephalopathy related to sepsis, and possibly to intracranial bleeding, will monitor closely 4. Underlying history of hypertention, home blood pressure medication are resumed will monitor 5. Tachycardia, will give fluid bolus 250 mL and reassess medications including metoprolol were resumed 6. Febrile illness was temperature of 102, could be related to urinary tract infection however will check Covid 19 Will consult infectious disease 7. 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 8. Previous history of DVT and PE maintained on Coumadin at this time Coumadin is on hold Will resume when advised by neurology 9. Underlying history of anemia. At this time patient is admitted to telemetry floor, she is started on IV fluid and IV antibiotics Neurology consultation and infectious disease consultation are requested Coumadin and aspirin are on hold At this time patient remains a full code which will be discussed further with her son Will add pulmonary and critical care consult Prognosis is guarded
[2019-06-23 14:52] LABS: Prothrombin Time 29.1 sec (9.0-12.0)
--- NOTE | 2019-06-23 16:51 | PN ---
PROGRESS NOTE DATE OF SERVICE: 06/23/2019 REASON FOR FOLLOWUP: Urinary tract infection. INTERVAL HISTORY: The patient is continues to run a fever. This afternoon she was noted to have a fever of 101.2 degrees Fahrenheit. The patient continues to be slightly lethargic but breathing comfortably on room air. No vomiting or any diarrhea has been reported. The patient herself is unable to provide any reliable history. PHYSICAL EXAMINATION: Blood pressure 135/73 with a pulse of 129, temperature 101.2. She is 98% on room air. General description is an elderly female lying in bed in no distress. RESPIRATORY SYSTEM: Unlabored breathing. Clear to auscultation anteriorly. HEART: S1, S2. Regular rate and rhythm. ABDOMEN: Soft. No tenderness. Right AK stump wound currently with no cellulitis. LABS: INR of 3.0. Urine showing Gram-negative bacilli. Blood culture so far negative. DIAGNOSTIC IMPRESSION AND PLAN: Patient with a fever. Source is likely complicated urinary tract infection. Patient with persistent fever despite being on Rocephin. Will need to cover for resistant Gram- negative such as ESBL pathogen in this patient who has been in and out of the hospital and exposed to multiple antibiotics. We will go ahead and start the patient on Invanz 1 gram daily while waiting for the urine culture to finalize and discontinue Rocephin. Continue with supportive care. MMODL / IJN: [id number] /
[2019-06-23] MEDS: ERTAPENEM 1 GM in SODIUM CHLORIDE 0.9% 50 ML IVPB SCH (16:57)
[2019-06-23] MEDS: FOLIC ACID 1 MG TAB PO SCH (20:01)
[2019-06-23] MEDS: ALLOPURINOL 300 MG TAB PO SCH (20:01)
[2019-06-23] MEDS: PRAVASTATIN SODIUM 20 MG TAB PO SCH (20:01)
[2019-06-23] MEDS: MULTIVITAMINS, THERA 1 EACH TAB PO SCH (20:02)
[2019-06-24] MEDS: ACETAMINOPHEN TAB 325 MG TAB PO PRN ×3 (04:16→22:08)
[2019-06-24 04:17] LABS: Glucose,Whole Blood 136 mg/dL (75-99)
[2019-06-24] MEDS: SODIUM CHLORIDE 0.9% 1,000 ML IV SCH ×2 (05:50→22:09)
[2019-06-24] MEDS: PANTOPRAZOLE 40 MG TABLET PO SCH ×2 (05:51→22:09)
[2019-06-24 07:37] LABS: Anisocytosis Slight; Basophils % (A) 0 %; Eosinophils % (A) 0 %; Hypochromasia Slight; Lymphocytes # (A) 1.6 k/uL (1.0-4.8); Lymphocytes % (A) 10 %; MCH 30.3 pg (25.0-35.0); MCHC 31.5 g/dL (31.0-37.0); MCV 95.9 fL (80.0-100.0); Mean Platelet Volume 8.3; Monocytes # (A) 0.9 k/uL (0-1.0); Monocytes % (A) 6 %; Neutrophils # (A) 12.5 k/uL (1.3-7.7); Neutrophils % (A) 81 %; Platelet Count 494 k/uL (150-450); RBC 1.97 m/uL (3.80-5.40); RDW 16.1 % (11.5-15.5); WBC 15.4 k/uL (3.8-10.6)
[2019-06-24 07:52] LABS: INR 2.8 (<1.2); Prothrombin Time 27.6 sec (9.0-12.0)
[2019-06-24 07:53] LABS: Albumin 2.7 g/dL (3.5-5.0); Calcium 8.9 mg/dL (8.4-10.2); Total Bilirubin 0.9 mg/dL (0.2-1.3); Total Protein 5.7 g/dL (6.3-8.2)
[2019-06-24 08:24] LABS: HCT 18.9 % (34.0-46.0)
[2019-06-24] MEDS: ERTAPENEM 1 GM in SODIUM CHLORIDE 0.9% 50 ML IVPB SCH (09:34)
[2019-06-24] MEDS: FERROUS SULFATE 325 MG TAB PO SCH (09:36)
[2019-06-24] MEDS: CALCIUM CARB-VIT D 500MG-200UN 1 EACH TAB PO SCH ×3 (09:36→22:09)
[2019-06-24] MEDS: LISINOPRIL 20 MG TAB PO SCH ×2 (09:36→17:24)
[2019-06-24] MEDS: MAGNESIUM OXIDE 400 MG TAB PO SCH ×3 (09:36→22:09)
[2019-06-24] MEDS: ISOSORBIDE MONONITRATE ER 30 MG TAB.ER.24H PO SCH (09:37)
[2019-06-24] MEDS: METOPROLOL SUCCINATE (ER) 50 MG TAB.ER.24H PO SCH (09:37)
[2019-06-24] MEDS: POTASSIUM CHLORIDE ER 20 MEQ TAB.ER PO SCH ×2 (09:37→09:44)
[2019-06-24] MEDS: CYANOCOBALAMIN 500 MCG TAB PO SCH (09:37)
[2019-06-24] MEDS: PYRIDOXINE 50 MG TAB PO SCH (09:37)
[2019-06-24] MEDS: PARoxetine 10 MG TAB PO SCH ×2 (09:37→17:24)
--- NOTE | 2019-06-24 12:46 | XR ---
EXAMINATION TYPE: XR chest 1V portable DATE OF EXAM: 06/24/2019 HISTORY: PNEUMONIA. REFERENCE: Previous study dated 06/22/2019. FINDINGS: Heart is enlarged. There is platelike atelectasis in the right midlung. There is apparent e levation right hemidiaphragm. There is blunting of the right CP angle. The left lung is relatively cl ear. IMPRESSION: 1. MILD CARDIOMEGALY. 2. PLATELIKE ATELECTASIS, RIGHT MIDLUNG. 3. I CANNOT EXCLUDE A SMALL, RIGHT EFFUSION.
--- NOTE | 2019-06-24 13:25 | P.PN ---
Subjective Progress Note Date: 06/24/19 Maria Teresa Celeste is a 73-year-old female resident of [facility] on the [facility] who sustained a fall with head trauma on 06/18/2019 at that time she was sent to emergency room and had a computed tomography scan of the brain and the cervical spine without contrast, she had evidence of a large frontal scalp hematoma and right periorbital hematoma but no intracranial bleeding, she was sent back to [facility] on the [facility]. On 06/22/2019 patient was noticed to have worsening mental status was more somnolence and less responsiveness by the nursing staff she was sent back to emergency room repeat computed tomography scan of the brain revealed evidence of minimal subarachnoid hemorrhage and possible intraparenchymal hemorrhage in the right periventricular white matter. Possibility of transferring patient to a tertiary care center was discussed in details in the emergency room, however due to the fact that trauma happened several days ago, and due to the fact that there is an epidemic of Covid 19 infection which is making it very difficult to transfer patient to [facility], and due to patient age and comorbidities which makes intracranial intervention exceedingly difficult, decision was made not to proceed with transferring patient, her son, (and current power of assistant prosecuting attorney since her earlier this month) who was in the emergency room was in agreement of this decision. Patient was admitted to telemetry floor and neurology consultation was requested. Patient has a known history of DVT and PE, she was maintained on aspirin and Coumadin, these medications are now on hold. Patient also had evidence of urinary tract infection with sepsis as evidenced by temperature of 102.1 and leukocytosis white blood count was 14.0 and tachycardia was heart rate of 123 Patient will be given a fluid bolus lactic acid level was ordered but not resulted yet, she was given a dose of IV Rocephin in the emergency room Infectious disease consultation was requested, Covid 19 testing will be done due to elevated temperature On 06/23/2019 patient was seen and examined on the medical floor she is somnolent and responsive she answers questions briefly but goes back to sleep she is denying any pain or discomfort at this time she is denying shortness of breath or cough she is still having spikes of temperature to 102.4 neurology input reviewed will restart Coumadin tomorrow. On 06/24/2019 patient was seen and examined on the medical floor she is more alert and responsive today, white blood count is up to 15.4 hemoglobin 6.0 at this time Coumadin will be held again she will receive 1 unit of red blood cell transfusion then recheck CBC. Covid 19 testing is still pending patient is still having spikes of temperature or fever this morning was 100.7 she still has tachycardia and low oxygen saturation of 89% on room air Objective - Vital Signs Vital signs: Vital Signs Temp 100.7 F H 06/24/19 08:15 Pulse 109 H 06/24/19 11:50 Resp 16 06/24/19 11:50 BP 146/83 06/24/19 11:50 Pulse Ox 98 06/24/19 11:50 Intake & Output 06/23/19 06/24/19 06/24/19 18:59 06:59 18:59 Intake Total 360 120 120 Balance 360 120 120 Weight 99 kg Intake: Oral 360 120 120 Blood Product 0 Rc Pheresis As-3 Unit 0 [id number] Other: Voiding Method Diaper Incontinent # Voids 1 1 - Exam In general patient is somnolent responsive answering questions by yes or no and quickly goes back to closing her eyes HEENT with significant trauma and hematoma to the face Neck is supple no JVD no goiter no lymphadenopathy Chest exam reveals a few scattered rhonchi no wheezing Cardiac exam reveals regular heart sounds S1 and S2 with tachycardia no gallops no murmurs Abdomen is soft nontender no organomegaly with normal bowel sounds Extremity exam reveals right above-knee amputation and left was 2+ edema Neurological examination mental status as above otherwise no focal neurological deficit at this time - Labs CBC & Chem 7: 06/24/19 07:15 06/24/19 07:15 Labs: Abnormal Lab Results - Last 24 Hours (Table) 06/23/19 06/24/19 06/24/19 Range/Units 13:58 04:15 07:15 WBC 15.4 H (3.8-10.6) k/uL RBC 1.97 L (3.80-5.40) m/uL Hgb 6.0 L* D (11.4-16.0) gm/dL Hct 18.9 L* (34.0-46.0) % RDW 16.1 H (11.5-15.5) % Plt Count 494 H (150-450) k/uL Neutrophils # 12.5 H (1.3-7.7) k/uL PT 29.1 H (9.0-12.0) sec INR 3.0 H (<1.2) Chloride (98-107) mmol/L BUN (7-17) mg/dL Glucose (74-99) mg/dL POC Glucose (mg/dL) 136 H (75-99) mg/dL AST (14-36) U/L ALT (4-34) U/L Alkaline Phosphatase (38-126) U/L Total Protein (6.3-8.2) g/dL Albumin (3.5-5.0) g/dL Crossmatch 06/24/19 06/24/19 06/24/19 Range/Units 07:15 07:15 09:43 WBC (3.8-10.6) k/uL RBC (3.80-5.40) m/uL Hgb (11.4-16.0) gm/dL Hct (34.0-46.0) % RDW (11.5-15.5) % Plt Count (150-450) k/uL Neutrophils # (1.3-7.7) k/uL PT 27.6 H (9.0-12.0) sec INR 2.8 H (<1.2) Chloride 110 H (98-107) mmol/L BUN 28 H (7-17) mg/dL Glucose 118 H (74-99) mg/dL POC Glucose (mg/dL) (75-99) mg/dL AST 89 H (14-36) U/L ALT 40 H (4-34) U/L Alkaline Phosphatase 184 H (38-126) U/L Total Protein 5.7 L (6.3-8.2) g/dL Albumin 2.7 L (3.5-5.0) g/dL Crossmatch See Detail Microbiology - Last 24 Hours (Table) 06/22/19 11:40 Urine Culture - Final Urine,Catheterized Escherichia coli 06/22/19 13:17 Blood Culture - Preliminary Blood No Growth after 24 hours Assessment and Plan Plan: 1. Recent fall with head trauma 5 days ago with computed tomography scan revealing minimal subarachnoid hemorrhage and possible intra-parenchymal hemorrhage in the right periventricular white matter. At this time aspirin and Coumadin are held, neurology consultation was requested. I have discussed this case in details with her son who is the power of assistant prosecuting attorney at this time. Decision at this time is not to transfer patient to a tertiary care center due to the fact that trauma happened 5 days ago and due to current conditions with Covid 19 epidemic. Son is in agreement not to transfer patient. 2. Urinary tract infection with sepsis, urine culture and blood cultures requested, patient started on IV Rocephin, infectious disease consultation requested 3. Mental status changes, due to metabolic encephalopathy related to sepsis, and possibly to intracranial bleeding, will monitor closely 4. Underlying history of hypertention, home blood pressure medication are resumed will monitor 5. Tachycardia, will give fluid bolus 250 mL and reassess medications including metoprolol were resumed 6. Febrile illness was temperature of 102, could be related to urinary tract infection however will check Covid 19 Will consult infectious disease 7. 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 8. Previous history of DVT and PE maintained on Coumadin at this time Coumadin is on hold Will resume when advised by neurology 9. Underlying history of anemia. At this time patient is admitted to telemetry floor, she is started on IV fluid and IV antibiotics Neurology consultation and infectious disease consultation are requested Coumadin and aspirin are on hold At this time patient remains a full code which will be discussed further with her son Will add pulmonary and critical care consult Prognosis is guarded
--- NOTE | 2019-06-24 16:18 | CONS ---
CONSULTATION REASON FOR CONSULTATION: Abnormal chest x-ray. DATE OF CONSULTATION: June 24, 2019 HISTORY OF PRESENT ILLNESS: This is a 73-year-old female who apparently presented to the hospital on June 21 via EMS for mental status changes. She apparently resides at a senior living and for the last 3 days or so prior to admission, had decreased level of consciousness and mental status changes. She apparently had a fall 5 days ago with head trauma. She is currently on Coumadin therapy. She was seen in the emergency room. She was noted to have a frontal hematoma with no intracranial hemorrhage. The patient was apparently found by EMS to be afebrile. There was no shortness of breath or cough. There is no abdominal pain or vomiting. No chest pain or chest discomfort. The patient was apparently able to answer simple questions and was complaining of generalized pain and discomfort. Apparently, we were asked to see her because initially she was not requiring oxygen, but more recently has required a couple L. She is very lethargic and somnolent. She does arouse. She does not take deep breaths. Chest x-ray also showed some basilar atelectasis in the right lung. I cannot get much history from the patient. A subsequent brain CT apparently shows small amounts of faint subarachnoid blood and cortical contusions anterior right frontal lobe which is less pronounced than on the prior CT scan done June 21. There is central cerebral atrophy and changes of chronic small-vessel ischemic disease. Under cervical spine large right frontal scalp hematoma measuring 3.3 x 1[address] scan done on June 21 does in fact show minimal subarachnoid hemorrhage and possible intraparenchymal post traumatic hemorrhage. HOME MEDICATIONS: Include Zyloprim, multivitamins, Tylenol, Imdur, pravastatin, Paxil, aspirin, calcium carbonate, Ativan, Zofran, artificial Tears, vitamin B12, iron, folic acid, lisinopril, Imodium, Mag-Ox, Calmoseptine ointment, metoprolol succinate, Protonix, potassium, warfarin and diazepam. ALLERGIES: MULTIPLE INCLUDE ADHESIVE TAPE, TEGRETOL, SOMA, COREG, DOXYCYCLINE, ERYTHROMYCIN, HYDROCODONE, MILK, NSAID, FELDENE, CIPROFLOXACIN, AND WHEAT. PAST MEDICAL HISTORY: Includes DVT, GERD, hypertension, DJD, pulmonary embolism, degenerative disk disease, gastroenteritis, H-pylori infection, gout, TMJ, bilateral macular degeneration with left eye blindness, chronic urinary tract infection, osteoporosis, chronic osteomyelitis of the right femur, and a prior right eakhu-val-eldm amputation. SURGICAL HISTORY: Includes hysterectomy, joint replacement, tubal ligation and a whole host of other procedures noted under the surgical history. SOCIAL HISTORY: Positive for former tobacco use. Denies any alcohol or illicit drug use. FAMILY HISTORY: Apparently positive for brother with oral cancer, pacemaker and surgery, heart failure, and bypass grafting. Father apparently had CHF, hyperlipidemia, hypertension, and myocardial infarction. Mother apparently had CHF and stroke history. REVIEW OF SYSTEMS: Could not be obtained from the patient at this time. She is very lethargic and sleepy. PHYSICAL EXAMINATION: VITAL SIGNS: Current vital signs are reviewed. Temperature is 99.1, heart rate 114, respiratory rate 16, blood pressure 136/74. Mean 94, 2 L saturation 98%. GENERAL: She appears in no acute distress. She is not tachypneic. She is not demonstrating any signs or symptoms of respiratory difficulty. HEENT: Examination is grossly unremarkable save for the facial trauma that she sustained her with her recent fall. She has a right scalp hematoma. NECK: Supple. Full range of motion. No adenopathy. CARDIOVASCULAR: Examination reveals heart rate 109. It is regular. S1, S2 normal. LUNGS: Reveal diminished breath sounds. No wheezes, rhonchi, or crackles. ABDOMEN: Soft. Bowel sounds are heard. Abdomen is obese. EXTREMITIES are intact. She does have a right [id number] amputation. SKIN: Without rash. NEUROLOGIC evaluation is difficult to assess. LABORATORY DATA: White count 15.4, hemoglobin 6, hematocrit 18.9, platelet count 494,000, PT/INR is therapeutic. Sodium and potassium normal. Chloride 110, CO2 26, anion gap is 7, BUN and creatinine were 28 and 0.92. Bilirubin is 0.9. AST and ALT are 89 and 40 respectively. Albumin 2.7. Influenza A and B studies were negative. A chest x-ray done on the day of admission shows no acute pulmonary process. The more recent chest x-ray done on June 23 shows some mild cardiomegaly. There is some right- sided mid lung atelectasis and/or infiltrate. In addition, there is a small right- sided effusion. Microbiologic studies were positive for E coli in the urine. Blood cultures are thus far negative. ASSESSMENT: 1. Doubt significant pulmonary process such as pneumonia, although the patient does have minimal atelectasis/infiltrate in the right mid lung, which may represent an episode of aspiration. 2. Escherichia coli urinary tract infection. 3. Deep vein thrombosis. 4. Pulmonary embolism. 5. Gastroesophageal reflux disease. 6. Hypertension. 7. Degenerative joint disease. 8. Obesity. 9. Degenerative disc disease. 10.History of H-pylori infection. 11.History of gout. 12.Macular degeneration. 13.Chronic urinary tract infections. 14.Osteoporosis. 15.Status post right [id number] amputation secondary to osteomyelitis. 16.Multiple other medical problems and comorbidities. PLAN: In my opinion, it is unlikely the patient has a significant pulmonary process at this time. The abnormalities on chest x-ray are rather minimal and may relate more to atelectasis than infiltrate. Her fever may become more likely from her E coli urinary tract infection. We will continue to follow. Currently, her medications are reviewed. She is on Ertapenem. No additional recommendations are made. Would recommend deep breathing, coughing, clearing of secretions and hourly use of the incentive spirometer. MMODL / IJN: [id number] /
[2019-06-24 17:47] LABS: Anisocytosis Slight; HCT 21.8 % (34.0-46.0); Hypochromasia Slight; MCH 29.8 pg (25.0-35.0); MCHC 31.6 g/dL (31.0-37.0); Mean Platelet Volume 7.9; Platelet Count 549 k/uL (150-450); Poikilocytosis Slight; RBC 2.32 m/uL (3.80-5.40); RDW 16.2 % (11.5-15.5)
[2019-06-24] MEDS ORDERED: WARFARIN 2 MG TAB PO SCH (18:00)
[2019-06-24 18:15] LABS: HGB 6.9 gm/dL (11.4-16.0)
[2019-06-24 18:29] LABS: Band Neutrophils % 2 %; Basophils # (M) 0.17 k/uL (0-0.2); Eosinophils # (M) 0.33 k/uL (0-0.7); Lymphocytes # (M) 2.67 k/uL (1.0-4.8); Metamyelocytes # (M) 0.33 k/uL (0); Metamyelocytes % 2 %; Monocytes # (M) 0.84 k/uL (0-1.0); Neutrophils % (M) 75 %; Nucleated Red Blood Cells 2 /100 WBC (0-0); Total Cells Counted 200; WBC 16.7 k/uL (3.8-10.6)
[2019-06-24 18:30] LABS: Polychromasia Present
[2019-06-24] MEDS ORDERED: FUROSEMIDE 10 MG/ML 2 ML VIAL IV ONE (19:03)
[2019-06-24] MEDS: FOLIC ACID 1 MG TAB PO SCH (22:09)
[2019-06-24] MEDS: ALLOPURINOL 300 MG TAB PO SCH (22:09)
[2019-06-24] MEDS: MULTIVITAMINS, THERA 1 EACH TAB PO SCH (22:41)
[2019-06-24] MEDS: PRAVASTATIN SODIUM 20 MG TAB PO SCH (22:41)
[2019-06-25] MEDS: PIPERACILLIN-TAZOBACTAM 3.375 GM in SODIUM CHLORIDE 0.9% 100 ML IVPB SCH ×3 (02:12→15:55)
[2019-06-25] MEDS: SODIUM CHLORIDE 0.9% 1,000 ML IV SCH ×2 (06:25→23:13)
--- NOTE | 2019-06-25 07:01 | PN ---
PROGRESS NOTE DATE OF SERVICE: 06/24/2019 REASON FOR FOLLOWUP: Urinary tract infection, question of pneumonia. INTERVAL HISTORY: The patient has been running a low-grade fever of 100.3. The patient is hemodynamically stable, though she was noted to be slightly lethargic and noted to have slight worsening of her right periorbital hematoma. The patient was unable to provide any reliable history at this point. PHYSICAL EXAMINATION: On examination, her blood pressure is 152/80 with a pulse of 113, temperature 99.3. She is 96% on 2 L nasal cannula. General description is an elderly female lying in bed in no distress. HEENT examination: The right periorbital swelling has increased. LUNGS: Unlabored breathing and decreased breath sounds in the base, with no wheeze. Heart S1, S2. Regular rate and rhythm. Abdomen soft, no tenderness. LABS: Hemoglobin is 6.9, white count 16.7, BUN of 28, creatinine 0.92. Blood culture negative. Urine showing an E coli sensitive to pathogen. Chest x-ray with right middle lobe infiltrate. DIAGNOSTIC IMPRESSION AND PLAN: Patient admitted to the hospital with fever, source likely UTI, now with question of possible pneumonia, question aspiration etiology ( ) pneumonia less likely but not entirely excluded. Covid-19 testing is pending. Patient at this time antibiotic was adjusted to Zosyn. Blood cultures will be repeated and we will monitor clinical course closely. MMODL / IJN: [id number] /
[2019-06-25 07:49] LABS: INR 2.9 (<1.2); Prothrombin Time 28.2 sec (9.0-12.0)
[2019-06-25 07:55] LABS: Albumin 2.7 g/dL (3.5-5.0); Calcium 8.7 mg/dL (8.4-10.2); HCT 24.4 % (34.0-46.0); HGB 7.9 gm/dL (11.4-16.0); Hypochromasia Slight; MCH 30.3 pg (25.0-35.0); MCHC 32.5 g/dL (31.0-37.0); MCV 93.3 fL (80.0-100.0); Mean Platelet Volume 7.9; Platelet Count 575 k/uL (150-450); Poikilocytosis Slight; Potassium 4.1 mmol/L (3.5-5.1); RBC 2.62 m/uL (3.80-5.40); Total Bilirubin 2.1 mg/dL (0.2-1.3); Total Protein 5.6 g/dL (6.3-8.2); WBC 12.7 k/uL (3.8-10.6)
[2019-06-25] MEDS: PYRIDOXINE 50 MG TAB PO SCH (08:30)
[2019-06-25] MEDS: PARoxetine 10 MG TAB PO SCH ×2 (08:30→17:36)
[2019-06-25] MEDS: MAGNESIUM OXIDE 400 MG TAB PO SCH ×2 (08:30→21:16)
[2019-06-25] MEDS: LISINOPRIL 20 MG TAB PO SCH ×2 (08:30→17:36)
[2019-06-25] MEDS: CALCIUM CARB-VIT D 500MG-200UN 1 EACH TAB PO SCH ×2 (08:30→21:16)
[2019-06-25] MEDS: POTASSIUM CHLORIDE ER 20 MEQ TAB.ER PO SCH (08:30)
[2019-06-25] MEDS: ISOSORBIDE MONONITRATE ER 30 MG TAB.ER.24H PO SCH (08:30)
[2019-06-25] MEDS: METOPROLOL SUCCINATE (ER) 50 MG TAB.ER.24H PO SCH (08:30)
[2019-06-25] MEDS: CYANOCOBALAMIN 500 MCG TAB PO SCH (08:30)
[2019-06-25] MEDS: FERROUS SULFATE 325 MG TAB PO SCH (08:30)
[2019-06-25 08:33] LABS: Eosinophils # (M) 0.13 k/uL (0-0.7); Lymphocytes # (M) 2.79 k/uL (1.0-4.8); Monocytes # (M) 0.76 k/uL (0-1.0); Neutrophils # (M) 9.02 k/uL (1.3-7.7); Neutrophils % (M) 71 %; Nucleated Red Blood Cells 0 /100 WBC (0-0); Polychromasia Present; Total Cells Counted 100
[2019-06-25 08:34] LABS: Anisocytosis (M) Present
[2019-06-25] MEDS ORDERED: IBUPROFEN 600 MG TAB PO PRN (12:27)
[2019-06-25 15:41] LABS: C Reactive Protein 400.9 mg/L (<10.0)
--- NOTE | 2019-06-25 16:29 | P.PN ---
Subjective Progress Note Date: 06/25/19 Principal diagnosis: The patient is seen today 06/25/2019 in follow-up on the selective care unit. She is currently resting in bed. Arousable but not answering many questions. S he remains quite lethargic and somnolent. Chest x-ray revealed minimal atelectasis/infiltrate in the right midlung possibly related to aspiration. She is maintaining O2 saturations in the 90s on 2 L/m per nasal cannula. She has been febrile at 101 earlier today. She is tachycardic. Blood pressure stable. She is status post 2 units of packed red blood cells this admission. Current hemoglobin 7.9. She does have E. coli urinary tract infection. Blood culture reveals no growth. White count 12.7. Hemoglobin 7.9. INR 2.9. D-dimer 0.59. Sodium 143. Potassium 4.1. Creatinine 0.97. LDH 856. C-reactive protein 400. COVID-19 pending. She is currently on Zosyn. Objective - Vital Signs Vital signs: Vital Signs Temp 98.5 F 06/25/19 15:50 Pulse 129 H 06/25/19 15:50 Resp 20 06/25/19 15:50 BP 113/63 06/25/19 15:50 Pulse Ox 96 06/25/19 15:50 Intake & Output 06/24/19 06/25/19 06/25/19 18:59 06:59 18:59 Intake Total 430 955 240 Balance 430 955 240 Weight 100.5 kg Intake: Intake, IV Titration 525 Amount Sodium Chloride 0.9% 1, 525 000 ml @ 75 mls/hr IV . [id number] [facility] Rx#:[id number] Oral 120 120 240 Blood Product 310 310 Rc Pheresis 2 As3 Unit 310 [id number] Rc Pheresis As-3 Unit 310 [id number] Other: Voiding Method Diaper Diaper Diaper Incontinent Incontinent Incontinent # Voids 1 3 - Exam GENERAL EXAM: Arousable, somnolent, on 2 L nasal cannula. HEAD: Ecchymosis and edema over right eye EYES: Normal reaction of pupils, equal size. NOSE: Clear with pink turbinates. THROAT: No erythema or exudates. NECK: No masses, no JVD. CHEST: No chest wall deformity. LUNGS: Equal air entry with crackles in the right base, diminished. CVS: S1 and S2 normal with no audible murmur, regular rhythm. ABDOMEN: No hepatosplenomegaly, normal bowel sounds, no guarding or rigidity. SPINE: No scoliosis or deformity SKIN: No rashes CENTRAL NERVOUS SYSTEM: Tone is normal in all 4 extremities. EXTREMITIES: Right [id number] amputation. There is no peripheral edema. No clubbing, no cyanosis. Peripheral pulses are intact. - Labs CBC & Chem 7: 06/25/19 07:12 06/25/19 07:12 Labs: Abnormal Lab Results - Last 24 Hours (Table) 06/24/19 06/24/19 06/25/19 Range/Units 09:43 17:16 07:12 WBC 16.7 H 12.7 H (3.8-10.6) k/uL RBC 2.32 L 2.62 L (3.80-5.40) m/uL Hgb 6.9 L* 7.9 L (11.4-16.0) gm/dL Hct 21.8 L 24.4 L (34.0-46.0) % RDW 16.2 H 16.0 H (11.5-15.5) % Plt Count 549 H 575 H (150-450) k/uL Neutrophils # (Manual) 12.80 H 9.02 H (1.3-7.7) k/uL Metamyelocytes # (Man) 0.33 H (0) k/uL Nucleated RBCs 2 H (0-0) /100 WBC PT (9.0-12.0) sec INR (<1.2) Chloride (98-107) mmol/L BUN (7-17) mg/dL Glucose (74-99) mg/dL Total Bilirubin (0.2-1.3) mg/dL AST (14-36) U/L ALT (4-34) U/L Alkaline Phosphatase (38-126) U/L Lactate Dehydrogenase (313-618) U/L C-Reactive Protein (<10.0) mg/L Total Protein (6.3-8.2) g/dL Albumin (3.5-5.0) g/dL Crossmatch See Detail 06/25/19 06/25/19 06/25/19 Range/Units 07:12 07:12 14:24 WBC (3.8-10.6) k/uL RBC (3.80-5.40) m/uL Hgb (11.4-16.0) gm/dL Hct (34.0-46.0) % RDW (11.5-15.5) % Plt Count (150-450) k/uL Neutrophils # (Manual) (1.3-7.7) k/uL Metamyelocytes # (Man) (0) k/uL Nucleated RBCs (0-0) /100 WBC PT 28.2 H (9.0-12.0) sec INR 2.9 H (<1.2) Chloride 109 H (98-107) mmol/L BUN 27 H (7-17) mg/dL Glucose 128 H (74-99) mg/dL Total Bilirubin 2.1 H (0.2-1.3) mg/dL AST 112 H (14-36) U/L ALT 64 H (4-34) U/L Alkaline Phosphatase 228 H (38-126) U/L Lactate Dehydrogenase 856 H (313-618) U/L C-Reactive Protein 400.9 H (<10.0) mg/L Total Protein 5.6 L (6.3-8.2) g/dL Albumin 2.7 L (3.5-5.0) g/dL Crossmatch Microbiology - Last 24 Hours (Table) 06/22/19 13:17 Blood Culture - Preliminary Blood No Growth after 72 hours Assessment and Plan Assessment: 1 Acute hypoxic respiratory failure secondary to animal atelectasis/infiltrate in the right midlung. Suspect aspiration. 2 E coli urinary tract infection 3 Small faint subarachnoid blot/cortical contusion on the anterior right frontal lobe. No mass effect or midline shift. There is a liquefied enlarged right frontal scalp hematoma 4 Acute anemia requiring 2 units packed red blood cells. Current hemoglobin 7.9. 5 History of PE/DVT 6 Hypertension 7 Degenerative joint disease 8 Obesity 9 History of H. 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 Esposito. Possible aspiration pneumonia currently on Zosyn Urinary tract infection. ID is on the case. We will continue to follow I, the cosigning physician, performed a history & physical examination of the patient. Lungs sounds few scattered rhonchi more so on the right. Maintaining good O2 saturations in the 90s on 2 L/m per nasal. I discussed the assessment and plan of care with my nurse practitioner, Mechelle Grande. I attest to the above note as dictated by her.
--- NOTE | 2019-06-25 16:57 | P.PN ---
Subjective Progress Note Date: 06/25/19 Maria Teresa Celeste is a 73-year-old female resident of [facility] on the [facility] who sustained a fall with head trauma on 06/18/2019 at that time she was sent to emergency room and had a computed tomography scan of the brain and the cervical spine without contrast, she had evidence of a large frontal scalp hematoma and right periorbital hematoma but no intracranial bleeding, she was sent back to [facility] on the [facility]. On 06/22/2019 patient was noticed to have worsening mental status was more somnolence and less responsiveness by the nursing staff she was sent back to emergency room repeat computed tomography scan of the brain revealed evidence of minimal subarachnoid hemorrhage and possible intraparenchymal hemorrhage in the right periventricular white matter. Possibility of transferring patient to a tertiary care center was discussed in details in the emergency room, however due to the fact that trauma happened several days ago, and due to the fact that there is an epidemic of Covid 19 infection which is making it very difficult to transfer patient to [facility], and due to patient age and comorbidities which makes intracranial intervention exceedingly difficult, decision was made not to proceed with transferring patient, her son, (and current power of civil rights attorney since her earlier this month) who was in the emergency room was in agreement of this decision. Patient was admitted to telemetry floor and neurology consultation was requested. Patient has a known history of DVT and PE, she was maintained on aspirin and Coumadin, these medications are now on hold. Patient also had evidence of urinary tract infection with sepsis as evidenced by temperature of 102.1 and leukocytosis white blood count was 14.0 and tachycardia was heart rate of 123 Patient will be given a fluid bolus lactic acid level was ordered but not resulted yet, she was given a dose of IV Rocephin in the emergency room Infectious disease consultation was requested, Covid 19 testing will be done due to elevated temperature On 06/23/2019 patient was seen and examined on the medical floor she is somnolent and responsive she answers questions briefly but goes back to sleep she is denying any pain or discomfort at this time she is denying shortness of breath or cough she is still having spikes of temperature to 102.4 neurology input reviewed will restart Coumadin tomorrow. On 06/24/2019 patient was seen and examined on the medical floor she is more alert and responsive today, white blood count is up to 15.4 hemoglobin 6.0 at this time Coumadin will be held again she will receive 1 unit of red blood cell transfusion then recheck CBC. Covid 19 testing is still pending patient is still having spikes of temperature or fever this morning was 100.7 she still has tachycardia and low oxygen saturation of 89% on room air On 06/25/2019 patient was seen and examined on the medical floor she is somnolent opens eyes and responsive to stimuli and answers few questions with yes or no" since her eyes again she is still having some fever liver enzymes are more elevated today, white blood count is improving, she is still maintained on IV antibiotic for urinary tract infection albumin level is lower at 2.7 patient has poor oral intake Objective - Vital Signs Vital signs: Vital Signs Temp 98.5 F 06/25/19 15:50 Pulse 129 H 06/25/19 15:50 Resp 20 06/25/19 15:50 BP 113/63 06/25/19 15:50 Pulse Ox 96 06/25/19 15:50 Intake & Output 06/24/19 06/25/19 06/25/19 18:59 06:59 18:59 Intake Total 430 955 240 Balance 430 955 240 Weight 100.5 kg Intake: Intake, IV Titration 525 Amount Sodium Chloride 0.9% 1, 525 000 ml @ 75 mls/hr IV . [id number] [facility] Rx#:[id number] Oral 120 120 240 Blood Product 310 310 Rc Pheresis 2 As3 Unit 310 [id number] Rc Pheresis As-3 Unit 310 [id number] Other: Voiding Method Diaper Diaper Diaper Incontinent Incontinent Incontinent # Voids 1 3 - Exam In general patient is somnolent responsive answering questions by yes or no and quickly goes back to closing her eyes HEENT with significant trauma and hematoma to the face Neck is supple no JVD no goiter no lymphadenopathy Chest exam reveals a few scattered rhonchi no wheezing Cardiac exam reveals regular heart sounds S1 and S2 with tachycardia no gallops no murmurs Abdomen is soft nontender no organomegaly with normal bowel sounds Extremity exam reveals right above-knee amputation and left was 2+ edema Neurological examination mental status as above otherwise no focal neurological deficit at this time - Labs CBC & Chem 7: 06/25/19 07:12 06/25/19 07:12 Labs: Abnormal Lab Results - Last 24 Hours (Table) 06/24/19 06/24/19 06/25/19 Range/Units 09:43 17:16 07:12 WBC 16.7 H 12.7 H (3.8-10.6) k/uL RBC 2.32 L 2.62 L (3.80-5.40) m/uL Hgb 6.9 L* 7.9 L (11.4-16.0) gm/dL Hct 21.8 L 24.4 L (34.0-46.0) % RDW 16.2 H 16.0 H (11.5-15.5) % Plt Count 549 H 575 H (150-450) k/uL Neutrophils # (Manual) 12.80 H 9.02 H (1.3-7.7) k/uL Metamyelocytes # (Man) 0.33 H (0) k/uL Nucleated RBCs 2 H (0-0) /100 WBC PT (9.0-12.0) sec INR (<1.2) Chloride (98-107) mmol/L BUN (7-17) mg/dL Glucose (74-99) mg/dL Total Bilirubin (0.2-1.3) mg/dL AST (14-36) U/L ALT (4-34) U/L Alkaline Phosphatase (38-126) U/L Lactate Dehydrogenase (313-618) U/L C-Reactive Protein (<10.0) mg/L Total Protein (6.3-8.2) g/dL Albumin (3.5-5.0) g/dL Crossmatch See Detail 06/25/19 06/25/19 06/25/19 Range/Units 07:12 07:12 14:24 WBC (3.8-10.6) k/uL RBC (3.80-5.40) m/uL Hgb (11.4-16.0) gm/dL Hct (34.0-46.0) % RDW (11.5-15.5) % Plt Count (150-450) k/uL Neutrophils # (Manual) (1.3-7.7) k/uL Metamyelocytes # (Man) (0) k/uL Nucleated RBCs (0-0) /100 WBC PT 28.2 H (9.0-12.0) sec INR 2.9 H (<1.2) Chloride 109 H (98-107) mmol/L BUN 27 H (7-17) mg/dL Glucose 128 H (74-99) mg/dL Total Bilirubin 2.1 H (0.2-1.3) mg/dL AST 112 H (14-36) U/L ALT 64 H (4-34) U/L Alkaline Phosphatase 228 H (38-126) U/L Lactate Dehydrogenase 856 H (313-618) U/L C-Reactive Protein 400.9 H (<10.0) mg/L Total Protein 5.6 L (6.3-8.2) g/dL Albumin 2.7 L (3.5-5.0) g/dL Crossmatch Microbiology - Last 24 Hours (Table) 06/22/19 13:17 Blood Culture - Preliminary Blood No Growth after 72 hours Assessment and Plan Plan: 1. Recent fall with head trauma 5 days ago with computed tomography scan revealing minimal subarachnoid hemorrhage and possible intra-parenchymal hemorrhage in the right periventricular white matter. At this time aspirin and Coumadin are held, neurology consultation was requested. I have discussed this case in details with her son who is the power of civil rights attorney at this time. Decision at this time is not to transfer patient to a tertiary care center due to the fact that trauma happened 5 days ago and due to current conditions with Covid 19 epidemic. Son is in agreement not to transfer patient. 2. Urinary tract infection with sepsis, urine culture and blood cultures requested, patient started on IV Rocephin, infectious disease consultation requested 3. Mental status changes, due to metabolic encephalopathy related to sepsis, and possibly to intracranial bleeding, will monitor closely 4. Underlying history of hypertention, home blood pressure medication are resumed will monitor 5. Tachycardia, will give fluid bolus 250 mL and reassess medications including metoprolol were resumed 6. Febrile illness was temperature of 102, could be related to urinary tract infection however will check Covid 19 Will consult infectious disease 7. 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 8. Previous history of DVT and PE maintained on Coumadin at this time Coumadin is on hold Will resume when advised by neurology 9. Underlying history of anemia. At this time patient is admitted to telemetry floor, she is started on IV fluid and IV antibiotics Neurology consultation and infectious disease consultation are requested Coumadin and aspirin are on hold At this time patient remains a full code which will be discussed further with her son Will add pulmonary and critical care consult Prognosis is guarded
[2019-06-25 21:16] LABS: ABG Base Excess 2.5 mmol/L; ABG HCO3 27 mmol/L (21-25); ABG Oxygen Saturation 95.4 % (94-97); ABG PCO2 40 mmHg (35-45); ABG PH 7.43 (7.35-7.45); ABG PO2 71 mmHg (83-108); ABG TCO2 28 mmol/L (19-24); Allen Test Performed? Yes
[2019-06-25] MEDS: ALLOPURINOL 300 MG TAB PO SCH (21:16)
[2019-06-25] MEDS: MULTIVITAMINS, THERA 1 EACH TAB PO SCH (21:16)
[2019-06-25] MEDS: FOLIC ACID 1 MG TAB PO SCH (21:16)
[2019-06-25 21:46] LABS: Basophils % (A) 0 %; Eosinophils % (A) 0 %; HCT 25.7 % (34.0-46.0); HGB 8.1 gm/dL (11.4-16.0); Hypochromasia Slight; Lymphocytes # (A) 1.3 k/uL (1.0-4.8); Lymphocytes % (A) 5 %; MCH 29.9 pg (25.0-35.0); MCHC 31.5 g/dL (31.0-37.0); Mean Platelet Volume 7.8; Monocytes # (A) 0.4 k/uL (0-1.0); Monocytes % (A) 2 %; Neutrophils # (A) 23.2 k/uL (1.3-7.7); Neutrophils % (A) 92 %; Platelet Count 617 k/uL (150-450); Poikilocytosis Slight; WBC 25.3 k/uL (3.8-10.6)
--- NOTE | 2019-06-25 22:22 | CT ---
EXAMINATION TYPE: CT brain wo con DATE OF EXAM: 06/25/2019 COMPARISON: 06/23/2019 HISTORY: Change in mentation, Hx subarachnoid hemmorage, AMS CT DLP: 1184.90 mGycm Automated exposure control for dose reduction was used. There is large frontal scalp hematoma in the midline into the right side. The calvarium is intact. Th ere is no evidence of a fracture. There is diffuse cerebral cortical atrophy. There is no mass effect nor midline shift. There is no si gn of intracranial hemorrhage. The skull base is intact. There is some small areas of subtle small hi gher attenuation in the right frontal lobe wei and white matter stable compared to old exams and not related to acute hemorrhage. IMPRESSION: Cerebral atrophy. No acute intracranial abnormality. Large frontal scalp hematoma. No change compared to recent exam.
[2019-06-25] MEDS ORDERED: SODIUM CHLORIDE 0.9% 500 ML 1,000 ML IV ONE (22:48)
[2019-06-25] MEDS ORDERED: VANCOMYCIN IV PER PHARMACY 1 EACH MISC MISCELLANE PRN (22:49)
[2019-06-25 22:51] LABS: Polychromasia Present
[2019-06-25] MEDS ORDERED: VANCOMYCIN 1,750 MG in SODIUM CHLORIDE 0.9% 500 ML 500 ML IVPB STA (22:54)
[2019-06-25] MEDS: ACETAMINOPHEN IV (For NPO) 1,000 MG in EMPTY BAG 1 BAG IVPB SCH (23:11)
--- NOTE | 2019-06-26 00:02 | US ---
EXAMINATION TYPE: US liver DATE OF EXAM: 06/25/2019 COMPARISON: US 11/19/2015 CLINICAL HISTORY: elevated liver enzymes. Difficult and limited exam due to patient body habitus. Pat ient non-responsive during time of exam, unable to roll onto side, take a deep breath in and hold. EXAM MEASUREMENTS: Liver Length: 17.1 cm Gallbladder Wall: Unable to visualize CBD: 0.5 cm Right Kidney: 10.1 x 4.4 x 4.4 cm Pancreas: Obscured by bowel gas Liver: Heterogeneous, measuring upper limits of normal Gallbladder: unable to visualize. unable to obtain surgical history from patient Evidence for sonographic Lloyd's sign: No CBD: wnl as visualized Right Kidney: No hydronephrosis or masses seen as visualized IMPRESSION: Limited exam. No dilated ducts. No discrete liver mass. Right kidney shows no sign of obstruction.
[2019-06-26 01:22] LABS: ABG Base Excess 1.5 mmol/L; ABG HCO3 26 mmol/L (21-25); ABG Oxygen Saturation 99.4 % (94-97); ABG PCO2 40 mmHg (35-45); ABG PH 7.43 (7.35-7.45); ABG PO2 110 mmHg (83-108); ABG TCO2 27 mmol/L (19-24); Allen Test Performed? Yes
[2019-06-26 01:26] LABS: Glucose,Whole Blood 131 mg/dL (75-99)
[2019-06-26] MEDS: PIPERACILLIN-TAZOBACTAM 3.375 GM in SODIUM CHLORIDE 0.9% 100 ML IVPB SCH ×3 (02:58→17:31)
--- NOTE | 2019-06-26 05:47 | PN ---
PROGRESS NOTE DATE OF SERVICE: 06/25/2019 REASON FOR FOLLOWUP: Fever. INTERVAL HISTORY: The patient has been running a fever of 101 to 100.9. The patient is hemodynamically stable though the patient remains to be lethargic. No nausea or vomiting has been reported or any diarrhea. PHYSICAL EXAMINATION: Blood pressure 113/63 with a pulse of 129, temperature of 98.5. She is 96% on 2 L nasal cannula. General description is an elderly female lying in bed in no distress. RESPIRATORY SYSTEM: Unlabored breathing, decreased breath sounds in the bases. No wheeze. HEART: S1, S2. Regular rate and rhythm. ABDOMEN: Soft, no tenderness. The patient noticed to have significant bruise to the left knee area. LABS: Hemoglobin 8.1, white count 25.3. BUN of 27, creatinine 0.97. DIAGNOSTIC IMPRESSION AND PLAN: Patient with persistent fever with concern for urinary tract infection in this patient with possible component of aspiration pneumonia and also with elevated liver enzymes. The patient is currently covered with Zosyn. We will obtain an ultrasound of the abdomen to rule out any abdominal source. However, in view of the drop in hemoglobin, significant left knee hemarthrosis and underlying abdominal hematoma should be considered as well. Unfortunately, patient is lethargic and will not be able to drink the contrast not sure if CT abdomen and pelvis without oral contrast will be of any benefit may be ordered for the morning as well and continue supportive care. MMODL / IJN: [id number] /
[2019-06-26] MEDS: PANTOPRAZOLE 40 MG TABLET PO SCH (06:14)
--- NOTE | 2019-06-26 07:18 | XR ---
EXAMINATION TYPE: XR chest 1V portable DATE OF EXAM: 06/26/2019 HISTORY: Shortness of breath. COMPARISON: 06/24/2019 TECHNIQUE: Single view of the chest is submitted. FINDINGS: Demonstrated are scattered senescent parenchymal change. Persistent discoid atelectasis right lower lobe and/or infiltrate. No significant change appreciated. The heart is stable. Hilar and mediastinal structures are within normal limits. Degenerative changes are seen of the dorsal spine. IMPRESSION: 1. Persistent discoid atelectasis right lower lobe and/or infiltrate. No significant change apprecia yogi.
[2019-06-26] MEDS: SODIUM CHLORIDE 0.9% 1,000 ML IV SCH ×2 (08:11→17:32)
[2019-06-26] MEDS: ACETAMINOPHEN IV (For NPO) 1,000 MG in EMPTY BAG 1 BAG IVPB SCH ×2 (08:24→17:31)
[2019-06-26] MEDS: FERROUS SULFATE 325 MG TAB PO SCH (11:37)
[2019-06-26] MEDS: CALCIUM CARB-VIT D 500MG-200UN 1 EACH TAB PO SCH ×2 (11:37→19:48)
[2019-06-26] MEDS: CYANOCOBALAMIN 500 MCG TAB PO SCH (11:37)
[2019-06-26] MEDS: LISINOPRIL 20 MG TAB PO SCH ×2 (11:38→17:31)
[2019-06-26] MEDS: ISOSORBIDE MONONITRATE ER 30 MG TAB.ER.24H PO SCH (11:38)
[2019-06-26] MEDS: METOPROLOL SUCCINATE (ER) 50 MG TAB.ER.24H PO SCH (11:38)
[2019-06-26] MEDS: POTASSIUM CHLORIDE ER 20 MEQ TAB.ER PO SCH (11:38)
[2019-06-26] MEDS: ACETAMINOPHEN TAB 500 MG TAB PO PRN ×2 (11:39→22:57)
[2019-06-26] MEDS: MAGNESIUM OXIDE 400 MG TAB PO SCH ×2 (11:39→19:48)
[2019-06-26] MEDS: PYRIDOXINE 50 MG TAB PO SCH (11:54)
[2019-06-26] MEDS: PARoxetine 10 MG TAB PO SCH ×2 (11:54→17:31)
[2019-06-26 13:27] LABS: Ferritin 455.4 ng/mL (10.0-291.0)
--- NOTE | 2019-06-26 13:58 | P.CONS ---
History of Present Illness - Reason for Consult Consult date: 06/26/19 Wound care - History of Present Illness This is a 72-year-old patient who is a resident at [facility]. First 5 days ago she fell resulting in a head trauma with frontal hematoma. . 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 Patient being seen today on [facility] for a nonhealing ulceration to the amputation site. Patient. We had a wound VAC to the site and it was healed at that time. Ulceration is noted to amputation site with significant amount of Sl[place] with fat layer exposure. Patient's past medical history includes deep vein thrombosis, reflux, hyperlipidemia, memory impairment, DVT, pulmonary embolism, renal disease, and VRE of the right knee in 2013. Review of Systems Unable to obtain due to mentation Past Medical History Past Medical History: Deep Vein Thrombosis (DVT), Eye Disorder, GERD/Reflux, Hyperlipidemia, Hypertension, Memory Impairment, Osteoarthritis (OA), Pulmonary Embolus (PE), Renal Disease Additional Past Medical History / Comment(s): Fall 5 days ago with head trauma, has frontal hematoma, chronic oseomylitis R femur/R total knee with infection with surgery/ R AKA in January 2019-son states pt then had renal failure/temp orary dialysis and has had memory issues ever since amputation, R stump infection/necrosis with surgery/wound vac now healed, bilateral PEs, DVT- laterallity unknown, 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 MDRO Source:: Right knee Past Surgical History: Hysterectomy, Joint Replacement, Orthopedic Surgery, Tubal Ligation Additional Past Surgical History / Comment(s): Sternocleidomastoidectomy (right), right shoulder rotator cuff, rectocele/cystocele, right foot - Varma's neuroma/hammer toe, left outer forearm arthroscopy and shortening left ulna - plates and screws inserted, right wrist bundle of nerves , right knee arthroscopy/realignment of tendon/tibia/kneecap, R femur rods, R tibia with screws, 07-20-13 right knee replacement/removal and antibiotic spacer placed, large hematoma removed, BL vitrectomies, BL cataract surgery, right right femur benign tumor removed, left foot bone spur, EGD, colonoscopies,. Right AKA done on Feb 13 per Pt of this year. Past Anesthesia/Blood Transfusion Reactions: Postoperative Nausea & Vomiting (PONV) Additional Past Anesthesia/Blood Transfusion Reaction / Comm: no complications with prior blood transfusion Smoking Status: Never smoker - Past Family History Brother(s) Family Medical History: Cancer, Congestive Heart Failure (CHF) Additional Family Medical History / Comment(s): Heart problems, CABG, oral CA, pacemaker/defib. Father Family Medical History: Congestive Heart Failure (CHF), Hyperlipidemia, Hypertension, Myocardial Infarction ([place]) Additional Family Medical History / Comment(s): at 97 years old. Mother Family Medical History: Congestive Heart Failure (CHF), CVA/TIA Additional Family Medical History / Comment(s): Pacemaker - January 16 at age 94 a few days after CVA. Medications and Allergies Home Medications Medication Instructions Recorded Confirmed Type Allopurinol [Zyloprim] 300 mg PO HS@209908/21/14 06/22/19 History Multivitamins, Thera [Multivitamin 1 tab PO HS@209911/17/15 06/22/19 History (formulary)] Acetaminophen Tab [Tylenol] 650 mg PO Q6H PRN 02/02/18 06/22/19 History Isosorbide Mononitrate ER [Imdur] 30 mg PO DAILY@0900 02/02/18 06/22/19 History Pravastatin Sodium [Pravachol] 20 mg PO HS@209902/02/18 06/22/19 History PARoxetine HCL [Paxil] 30 mg PO BID@0900,1700 03/27/18 06/22/19 History Aspirin 325 mg PO DAILY@0900 03/18/19 06/22/19 History Calcium Carbonate/Vitamin D3 1 tab PO BID@0900,2100 03/18/19 06/22/19 History [Calcium 600-Vit D3 400 Tablet] LORazepam [Ativan] 0.5 mg PO BID@0900,1700 03/18/19 06/22/19 History Ondansetron HCl [Zofran] 4 mg PO Q6H PRN 03/18/19 06/22/19 History Artificial Tears-Hypromellose 1 drop BOTH EYES Q1H PRN 06/18/19 06/22/19 History [Artificial Tear Drops] Cyanocobalamin [Vitamin B-12] 500 mcg PO DAILY@0900 06/18/19 06/22/19 History Ferrous Sulfate [Feosol] 325 mg PO DAILY@0900 06/18/19 06/22/19 History Folic Acid 1 mg PO HS@2100 06/18/19 06/22/19 History Lisinopril [Zestril] 20 mg PO BID@0900,1700 06/18/19 06/22/19 History Loperamide [Imodium] 2 mg PO Q6H PRN 06/18/19 06/22/19 History Magnesium Oxide 400 mg PO BID@0900,2100 06/18/19 06/22/19 History Menthol-Zinc Oxide Oint 1 applic TOPICAL Q6H PRN 06/18/19 06/22/19 History [Calmoseptine Oint] Metoprolol Succinate (ER) [Toprol 50 mg PO DAILY@0900 06/18/19 06/22/19 History Xl] Pantoprazole Sodium [Protonix] 40 mg PO DAILY@0600 06/18/19 06/22/19 History Potassium Chloride ER [K-Dur 20] 20 meq PO DAILY@0900 06/18/19 06/22/19 History Warfarin [Coumadin] 2 mg PO HS@0 06/18/19 06/22/19 History Diazepam [Valium] 5 mg PO Q6H PRN 06/22/19 06/22/19 History Allergies Allergy/AdvReac Type Severity Reaction Status Date / Time adhesive Allergy Rash/Hives Verified 06/22/19 12:21 carbamazepine [From Tegretol] Allergy Rash/Hives Verified 06/22/19 12:21 carisoprodol [From Soma] Allergy lowers b/p Verified 06/22/19 12:21 quickly & passes out corn Allergy Unknown Verified 06/22/19 12:21 doxycycline calcium Allergy Rash/Hives Verified 06/22/19 12:21 [From Vibramycin] doxycycline hyclate Allergy Rash/Hives,vomited Verified 06/22/19 12:21 [From Vibramycin] blood doxycycline monohydrate Allergy Rash/Hives,vomited Verified 06/22/19 12:21 [From Vibramycin] blood erythromycin base Allergy Rash/Hives,vomited Verified 06/22/19 12:21 [From E-Mycin] blood hydrocodone bitartrate Allergy abdominal Verified 06/22/19 12:21 [From Vicodin] pain, diarrhea milk Allergy Unknown Verified 06/22/19 12:21 NSAIDS (Non-Steroidal Allergy Swelling Verified 06/22/19 12:21 Anti-Inflamma piroxicam [From Feldene] Allergy Swelling Verified 06/22/19 12:21 ciprofloxacin [From Cipro] AdvReac Nausea & Verified 06/22/19 12:21 Vomiting wheat AdvReac Diarrhea Verified 06/22/19 12:21 Physical Exam Vitals: Vital Signs Temp Pulse Resp BP Pulse Ox 06/26/19 04:00 98.9 F 96 24 113/56 96 06/26/19 00:30 98.5 F 06/26/19 00:00 99.3 F 106 H 32 H 103/54 100 06/25/19 23:00 100.3 F H 06/25/19 21:03 98 06/25/19 20:00 101 F H 122 H 40 H 106/53 98 06/25/19 15:50 98.5 F 129 H 20 113/63 96 Intake and Output 06/25/19 06/26/19 06/26/19 22:59 06:59 14:59 Intake Total 800 Balance 800 Intake: Intake, IV Titration 800 Amount Piperacillin-Tazobactam 3 200 .375 gm In Sodium Chloride 0.9% 100 ml @ 25 mls/hr IVPB Q8HR JORGE Rx# :[id number] Sodium Chloride 0.9% 1, 600 000 ml @ 100 mls/hr IV . Q10H JORGE Rx#:[id number] Other: Voiding Method Diaper Diaper Incontinent Incontinent # Voids 1 1 Weight 104.5 kg Physical exam: General Appearance: Alert to self, confused no distress, appears stated age. Skin: See HPI ulceration measures approximately 3 x 3 x 0.1 cm no granulation noted within wound bed. No tunneling or undermining. Edges attached wound bed. all other Skin color, texture, tugor normal, no rashes or lesions. Neurologic: Alert oriented x1 Results CBC & Chem 7: 06/25/19 21:05 06/25/19 07:12 Labs: Abnormal Lab Results - Last 24 Hours (Table) 06/25/19 06/25/19 06/25/19 Range/Units 14:24 14:24 21:05 WBC 25.3 H (3.8-10.6) k/uL RBC 2.70 L (3.80-5.40) m/uL Hgb 8.1 L (11.4-16.0) gm/dL Hct 25.7 L (34.0-46.0) % RDW 16.0 H (11.5-15.5) % Plt Count 617 H (150-450) k/uL Neutrophils # 23.2 H (1.3-7.7) k/uL ABG pO2 (83-108) mmHg ABG HCO3 (21-25) mmol/L ABG Total CO2 (19-24) mmol/L ABG O2 Saturation (94-97) % ABG Lactic Acid (0.5-1.6) mmol/L POC Glucose (mg/dL) (75-99) mg/dL Ferritin 455.4 H (10.0-291.0) ng/mL Lactate Dehydrogenase 856 H (313-618) U/L C-Reactive Protein 400.9 H (<10.0) mg/L Procalcitonin 0.66 H (0.02-0.09) ng/mL 06/25/19 06/25/19 06/26/19 Range/Units 21:10 Unknown 01:12 WBC (3.8-10.6) k/uL RBC (3.80-5.40) m/uL Hgb (11.4-16.0) gm/dL Hct (34.0-46.0) % RDW (11.5-15.5) % Plt Count (150-450) k/uL Neutrophils # (1.3-7.7) k/uL ABG pO2 71 L (83-108) mmHg ABG HCO3 27 H (21-25) mmol/L ABG Total CO2 28 H (19-24) mmol/L ABG O2 Saturation (94-97) % ABG Lactic Acid 1.7 H (0.5-1.6) mmol/L POC Glucose (mg/dL) 131 H (75-99) mg/dL Ferritin (10.0-291.0) ng/mL Lactate Dehydrogenase (313-618) U/L C-Reactive Protein (<10.0) mg/L Procalcitonin (0.02-0.09) ng/mL 06/26/19 Range/Units 01:21 WBC (3.8-10.6) k/uL RBC (3.80-5.40) m/uL Hgb (11.4-16.0) gm/dL Hct (34.0-46.0) % RDW (11.5-15.5) % Plt Count (150-450) k/uL Neutrophils # (1.3-7.7) k/uL ABG pO2 110 H (83-108) mmHg ABG HCO3 26 H (21-25) mmol/L ABG Total CO2 27 H (19-24) mmol/L ABG O2 Saturation 99.4 H (94-97) % ABG Lactic Acid (0.5-1.6) mmol/L POC Glucose (mg/dL) (75-99) mg/dL Ferritin (10.0-291.0) ng/mL Lactate Dehydrogenase (313-618) U/L C-Reactive Protein (<10.0) mg/L Procalcitonin (0.02-0.09) ng/mL Microbiology - Last 24 Hours (Table) 06/25/19 07:12 Blood Culture - Preliminary Blood No Growth after 24 hours 06/22/19 13:17 Blood Culture - Preliminary Blood No Growth after 72 hours Assessment and Plan (1) Nonhealing ulcer of right lower leg with fat layer exposed Current Visit: Yes Status: Acute Code(s): L97.912 - NON-PRS CHR ULC UNSP PRT OF R LOW LEG W FAT LAYER EXPOSED SNOMED Code(s): 63526927 (2) History of right above knee amputation Current Visit: Yes Status: Acute Code(s): Z89.611 - ACQUIRED ABSENCE OF RIGHT LEG ABOVE KNEE SNOMED Code(s): 477437595829396 Plan: Apply absorptive silver dry, Abd, secured with paper tape. Change Wednesday. Patient will continue wound care either through [facility] or to the wound care center. Thank you kindly for the consultation. Any questions please contact wound care center DNP note has been reviewed and discussed with Dr. Liz and the impression and plan of care has been directed as dictated.
--- NOTE | 2019-06-26 14:21 | P.PN ---
Subjective Progress Note Date: 06/26/19 Principal diagnosis: On 06/26/2019 patient seen in follow-up on selective care unit. She ruled out for Covid 19. Patient is confused, but she opens eyes to voice and verbal and tactile stimulation, her speech times is incomprehensible, does not appear to be in any acute respiratory distress, she is on 2 L of oxygen with a pulse ox of 96%, hemodynamically stable, she is afebrile. She has a large right supraorbital hematoma, and she has mild bruising in the periorbital areas of her bilateral face. Patient has been febrile over the last 24 hours, with a T- max of 10 1F. Apparently rapid response team was called last night for concern of fever, increased respiratory rate, and decreased level of consciousness, a CT brain was repeated showing no acute intracranial abnormality, large frontal scalp hematoma, and there was no change compared to previous exam. Vital signs are stable, her blood gas showed pO2 of 110, pCO2 of 40, and pH of 7.43, this was done on FiO2 of 20%, and did not show any abnormality with the ventilation. Today's chest x-ray has been reviewed showing persistent atelectasis in the right lower lobe and/or infiltrate, no significant change. ID service is following, and patient is on antibiotics in the form of Zosyn and vancomycin, urine culture showed E. coli. Objective - Vital Signs Vital signs: Vital Signs Temp 98.9 F 06/26/19 04:00 Pulse 96 06/26/19 04:00 Resp 24 06/26/19 04:00 BP 113/56 06/26/19 04:00 Pulse Ox 96 06/26/19 04:00 Intake & Output 06/25/19 06/26/19 06/26/19 18:59 06:59 18:59 Intake Total 1040 Balance 1040 Weight 104.5 kg Intake: Intake, IV Titration 800 Amount Piperacillin-Tazobactam 3 200 .375 gm In Sodium Chloride 0.9% 100 ml @ 25 mls/hr IVPB Q8HR JORGE Rx# :[id number] Sodium Chloride 0.9% 1, 600 000 ml @ 100 mls/hr IV . Q10H JORGE Rx#:[id number] Oral 240 Other: Voiding Method Diaper Diaper Incontinent Incontinent # Voids 3 1 - Exam GENERAL EXAM: Alert, 73-year-old white female, confused, with extensive bruising in the periorbital area, and a large hematoma above the right eye comfortable in no apparent distress. HEAD: Normocephalic/atraumatic. EYES: Normal reaction of pupils, equal size. Conjunctiva pink, sclera white. NOSE: Clear with pink turbinates. THROAT: No erythema or exudates. NECK: No masses, no JVD, no thyroid enlargement, no adenopathy. CHEST: No chest wall deformity. Symmetrical expansion. LUNGS: Equal air entry with no crackles, wheeze, rhonchi or dullness. CVS: Regular rate and rhythm, normal S1 and S2, no gallops, no murmurs, no rubs ABDOMEN: Soft, nontender. No hepatosplenomegaly, normal bowel sounds, no guarding or rigidity. EXTREMITIES: No clubbing, no edema, no cyanosis, 2+ pulses and upper and lower extremities. MUSCULOSKELETAL: Muscle strength and tone normal. Right [id number] amputation, there is a wound on the right stump, and the wound bed is clean, there is a silver dressing on, with no significant exudate SPINE: No scoliosis or deformity SKIN: No rashes CENTRAL NERVOUS SYSTEM: Alert and oriented -0. PSYCHIATRIC: Alert and oriented -0. Patient is confused - Labs CBC & Chem 7: 06/25/19 21:05 06/25/19 07:12 Labs: Abnormal Lab Results - Last 24 Hours (Table) 06/25/19 06/25/19 06/25/19 Range/Units 14:24 14:24 21:05 WBC 25.3 H (3.8-10.6) k/uL RBC 2.70 L (3.80-5.40) m/uL Hgb 8.1 L (11.4-16.0) gm/dL Hct 25.7 L (34.0-46.0) % RDW 16.0 H (11.5-15.5) % Plt Count 617 H (150-450) k/uL Neutrophils # 23.2 H (1.3-7.7) k/uL ABG pO2 (83-108) mmHg ABG HCO3 (21-25) mmol/L ABG Total CO2 (19-24) mmol/L ABG O2 Saturation (94-97) % ABG Lactic Acid (0.5-1.6) mmol/L POC Glucose (mg/dL) (75-99) mg/dL Ferritin 455.4 H (10.0-291.0) ng/mL Lactate Dehydrogenase 856 H (313-618) U/L C-Reactive Protein 400.9 H (<10.0) mg/L Procalcitonin 0.66 H (0.02-0.09) ng/mL 06/25/19 06/25/19 06/26/19 Range/Units 21:10 Unknown 01:12 WBC (3.8-10.6) k/uL RBC (3.80-5.40) m/uL Hgb (11.4-16.0) gm/dL Hct (34.0-46.0) % RDW (11.5-15.5) % Plt Count (150-450) k/uL Neutrophils # (1.3-7.7) k/uL ABG pO2 71 L (83-108) mmHg ABG HCO3 27 H (21-25) mmol/L ABG Total CO2 28 H (19-24) mmol/L ABG O2 Saturation (94-97) % ABG Lactic Acid 1.7 H (0.5-1.6) mmol/L POC Glucose (mg/dL) 131 H (75-99) mg/dL Ferritin (10.0-291.0) ng/mL Lactate Dehydrogenase (313-618) U/L C-Reactive Protein (<10.0) mg/L Procalcitonin (0.02-0.09) ng/mL 06/26/19 Range/Units 01:21 WBC (3.8-10.6) k/uL RBC (3.80-5.40) m/uL Hgb (11.4-16.0) gm/dL Hct (34.0-46.0) % RDW (11.5-15.5) % Plt Count (150-450) k/uL Neutrophils # (1.3-7.7) k/uL ABG pO2 110 H (83-108) mmHg ABG HCO3 26 H (21-25) mmol/L ABG Total CO2 27 H (19-24) mmol/L ABG O2 Saturation 99.4 H (94-97) % ABG Lactic Acid (0.5-1.6) mmol/L POC Glucose (mg/dL) (75-99) mg/dL Ferritin (10.0-291.0) ng/mL Lactate Dehydrogenase (313-618) U/L C-Reactive Protein (<10.0) mg/L Procalcitonin (0.02-0.09) ng/mL Microbiology - Last 24 Hours (Table) 06/25/19 07:12 Blood Culture - Preliminary Blood No Growth after 24 hours 06/22/19 13:17 Blood Culture - Preliminary Blood No Growth after 72 hours Assessment and Plan Plan: Assessment: 1 Acute hypoxic respiratory failure secondary to animal atelectasis/infiltrate in the right midlung. Suspect aspiration. 2 E coli urinary tract infection 3 Small faint subarachnoid blot/cortical contusion on the anterior right frontal lobe. No mass effect or midline shift. There is a liquefied enlarged right frontal scalp hematoma 4 Acute anemia requiring 2 units packed red blood cells. Current hemoglobin 7.9. 5 History of PE/DVT 6 Hypertension 7 Degenerative joint disease 8 Obesity 9 History of H. pylori infection 10 History of gout 11 History of macular degeneration 12 History of chronic urinary tract infections 13 Status post right [id number] amputation secondary to osteomyelitis 14 Poor overall functional performance based on the above-mentioned multiple comorbidities Plan: Continue antibiotics per ID service recommendations, today's chest x-ray reviewed showing persistent discoid atelectasis in the right lower lobe. Maintain aspiration precautions, patient is on comminution Zosyn and vancomycin. Right stump wound is clean, with no significant purulent exudate. No evidence of any respiratory difficulty, no rhonchi or wheezing. We'll continue to follow. Overall prognosis is extremely guarded. CODE STATUS with has to be readdressed I performed a history & physical examination of the patient and discussed their management with my nurse practitioner, Zena Rasmussen. I reviewed the nurse practitioner's note and agree with the documented findings and plan of care. Lung sounds are positive for diminished breath sounds. The findings and the impression was discussed with the patient. I attest to the documentation by the nurse practitioner. Time with Patient: Less than 30
--- NOTE | 2019-06-26 16:40 | P.PN ---
Subjective Progress Note Date: 06/26/19 Maria Teresa Celeste is a 73-year-old female resident of [facility] on the [facility] who sustained a fall with head trauma on 06/18/2019 at that time she was sent to emergency room and had a computed tomography scan of the brain and the cervical spine without contrast, she had evidence of a large frontal scalp hematoma and right periorbital hematoma but no intracranial bleeding, she was sent back to [facility] on the [facility]. On 06/22/2019 patient was noticed to have worsening mental status was more somnolence and less responsiveness by the nursing staff she was sent back to emergency room repeat computed tomography scan of the brain revealed evidence of minimal subarachnoid hemorrhage and possible intraparenchymal hemorrhage in the right periventricular white matter. Possibility of transferring patient to a tertiary care center was discussed in details in the emergency room, however due to the fact that trauma happened several days ago, and due to the fact that there is an epidemic of Covid 19 infection which is making it very difficult to transfer patient to [facility], and due to patient age and comorbidities which makes intracranial intervention exceedingly difficult, decision was made not to proceed with transferring patient, her son, (and current power of admitted attorneys since her earlier this month) who was in the emergency room was in agreement of this decision. Patient was admitted to telemetry floor and neurology consultation was requested. Patient has a known history of DVT and PE, she was maintained on aspirin and Coumadin, these medications are now on hold. Patient also had evidence of urinary tract infection with sepsis as evidenced by temperature of 102.1 and leukocytosis white blood count was 14.0 and tachycardia was heart rate of 123 Patient will be given a fluid bolus lactic acid level was ordered but not resulted yet, she was given a dose of IV Rocephin in the emergency room Infectious disease consultation was requested, Covid 19 testing will be done due to elevated temperature On 06/23/2019 patient was seen and examined on the medical floor she is somnolent and responsive she answers questions briefly but goes back to sleep she is denying any pain or discomfort at this time she is denying shortness of breath or cough she is still having spikes of temperature to 102.4 neurology input reviewed will restart Coumadin tomorrow. On 06/24/2019 patient was seen and examined on the medical floor she is more alert and responsive today, white blood count is up to 15.4 hemoglobin 6.0 at this time Coumadin will be held again she will receive 1 unit of red blood cell transfusion then recheck CBC. Covid 19 testing is still pending patient is still having spikes of temperature or fever this morning was 100.7 she still has tachycardia and low oxygen saturation of 89% on room air On 06/25/2019 patient was seen and examined on the medical floor she is somnolent opens eyes and responsive to stimuli and answers few questions with yes or no" since her eyes again she is still having some fever liver enzymes are more elevated today, white blood count is improving, she is still maintained on IV antibiotic for urinary tract infection albumin level is lower at 2.7 patient has poor oral intake On 06/26/2019 patient was seen and examined on the medical floor she is more alert and responsive today she is answering questions appropriately there is no fever or chills no headache or dizziness no chest pain or shortness of breath no cough no nausea or vomiting no abdominal pain no diarrhea and no urinary symptoms. Objective - Vital Signs Vital signs: Vital Signs Temp 98.9 F 06/26/19 04:00 Pulse 96 06/26/19 04:00 Resp 24 06/26/19 04:00 BP 113/56 06/26/19 04:00 Pulse Ox 96 06/26/19 04:00 Intake & Output 06/25/19 06/26/19 06/26/19 18:59 06:59 18:59 Intake Total 1040 240 Balance 1040 240 Weight 104.5 kg Intake: Intake, IV Titration 800 Amount Piperacillin-Tazobactam 3 200 .375 gm In Sodium Chloride 0.9% 100 ml @ 25 mls/hr IVPB Q8HR JORGE Rx# :[id number] Sodium Chloride 0.9% 1, 600 000 ml @ 100 mls/hr IV . Q10H JORGE Rx#:[id number] Oral 240 240 Other: Voiding Method Diaper Diaper Incontinent Incontinent # Voids 3 1 1 - Exam In general patient is somnolent responsive answering questions by yes or no and quickly goes back to closing her eyes HEENT with significant trauma and hematoma to the face Neck is supple no JVD no goiter no lymphadenopathy Chest exam reveals a few scattered rhonchi no wheezing Cardiac exam reveals regular heart sounds S1 and S2 with tachycardia no gallops no murmurs Abdomen is soft nontender no organomegaly with normal bowel sounds Extremity exam reveals right above-knee amputation and left was 2+ edema Neurological examination mental status as above otherwise no focal neurological deficit at this time - Labs CBC & Chem 7: 06/25/19 21:05 06/25/19 07:12 Labs: Abnormal Lab Results - Last 24 Hours (Table) 06/25/19 06/25/19 06/25/19 Range/Units 14:24 14:24 21:05 WBC 25.3 H (3.8-10.6) k/uL RBC 2.70 L (3.80-5.40) m/uL Hgb 8.1 L (11.4-16.0) gm/dL Hct 25.7 L (34.0-46.0) % RDW 16.0 H (11.5-15.5) % Plt Count 617 H (150-450) k/uL Neutrophils # 23.2 H (1.3-7.7) k/uL ABG pO2 (83-108) mmHg ABG HCO3 (21-25) mmol/L ABG Total CO2 (19-24) mmol/L ABG O2 Saturation (94-97) % ABG Lactic Acid (0.5-1.6) mmol/L POC Glucose (mg/dL) (75-99) mg/dL Ferritin 455.4 H (10.0-291.0) ng/mL Procalcitonin 0.66 H (0.02-0.09) ng/mL 06/25/19 06/25/19 06/26/19 Range/Units 21:10 Unknown 01:12 WBC (3.8-10.6) k/uL RBC (3.80-5.40) m/uL Hgb (11.4-16.0) gm/dL Hct (34.0-46.0) % RDW (11.5-15.5) % Plt Count (150-450) k/uL Neutrophils # (1.3-7.7) k/uL ABG pO2 71 L (83-108) mmHg ABG HCO3 27 H (21-25) mmol/L ABG Total CO2 28 H (19-24) mmol/L ABG O2 Saturation (94-97) % ABG Lactic Acid 1.7 H (0.5-1.6) mmol/L POC Glucose (mg/dL) 131 H (75-99) mg/dL Ferritin (10.0-291.0) ng/mL Procalcitonin (0.02-0.09) ng/mL 06/26/19 Range/Units 01:21 WBC (3.8-10.6) k/uL RBC (3.80-5.40) m/uL Hgb (11.4-16.0) gm/dL Hct (34.0-46.0) % RDW (11.5-15.5) % Plt Count (150-450) k/uL Neutrophils # (1.3-7.7) k/uL ABG pO2 110 H (83-108) mmHg ABG HCO3 26 H (21-25) mmol/L ABG Total CO2 27 H (19-24) mmol/L ABG O2 Saturation 99.4 H (94-97) % ABG Lactic Acid (0.5-1.6) mmol/L POC Glucose (mg/dL) (75-99) mg/dL Ferritin (10.0-291.0) ng/mL Procalcitonin (0.02-0.09) ng/mL Microbiology - Last 24 Hours (Table) 06/22/19 13:17 Blood Culture - Preliminary Blood No Growth after 96 hours 06/25/19 07:12 Blood Culture - Preliminary Blood No Growth after 24 hours Assessment and Plan Plan: 1. Recent fall with head trauma 5 days ago with computed tomography scan revealing minimal subarachnoid hemorrhage and possible intra-parenchymal hemorrhage in the right periventricular white matter. At this time aspirin and Coumadin are held, neurology consultation was requested. I have discussed this case in details with her son who is the power of admitted attorneys at this time. Decision at this time is not to transfer patient to a tertiary care center due to the fact that trauma happened 5 days ago and due to current conditions with Covid 19 epidemic. Son is in agreement not to transfer patient. 2. Urinary tract infection with sepsis, urine culture and blood cultures requested, patient started on IV Rocephin, infectious disease consultation requested 3. Mental status changes, due to metabolic encephalopathy related to sepsis, and possibly to intracranial bleeding, will monitor closely 4. Underlying history of hypertention, home blood pressure medication are resumed will monitor 5. Tachycardia, will give fluid bolus 250 mL and reassess medications including metoprolol were resumed 6. Febrile illness was temperature of 102, could be related to urinary tract infection however will check Covid 19 Will consult infectious disease 7. 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 8. Previous history of DVT and PE maintained on Coumadin at this time Coumadin is on hold Will resume when advised by neurology 9. Underlying history of anemia. At this time patient is admitted to telemetry floor, she is started on IV fluid and IV antibiotics Neurology consultation and infectious disease consultation are requested Coumadin and aspirin are on hold At this time patient remains a full code which will be discussed further with her son Will add pulmonary and critical care consult Prognosis is guarded
[2019-06-26] MEDS: ALLOPURINOL 300 MG TAB PO SCH (19:48)
[2019-06-26] MEDS: MULTIVITAMINS, THERA 1 EACH TAB PO SCH (19:48)
[2019-06-26] MEDS: FOLIC ACID 1 MG TAB PO SCH (19:48)
[2019-06-26] MEDS ORDERED: IOPAMIDOL CONTRAST (ORAL USE) VIAL PO PRN (20:59)
[2019-06-26] MEDS: VANCOMYCIN 1,750 MG in SODIUM CHLORIDE 0.9% 500 ML 500 ML IVPB SCH (22:55)
--- NOTE | 2019-06-26 23:11 | PN ---
PROGRESS NOTE DATE OF SERVICE: 06/26/2019 REASON FOR FOLLOWUP: UTI and possible aspiration pneumonia. INTERVAL HISTORY: The patient overall at this point has improved. The patient looks to be more awake and alert today. She was breathing comfortably. No nausea. No vomiting. No abdominal pain. No diarrhea. PHYSICAL EXAMINATION: Blood pressure 98/53 with a pulse of 104, temperature of 99.7. She is 97% on 2 liters nasal cannula. General description is an elderly female lying in bed in no distress. RESPIRATORY SYSTEM: Unlabored breathing. Clear to auscultation anteriorly. HEART: S1, S2. Regular rate and rhythm. ABDOMEN: Soft. No tenderness. LABS: No new labs have been obtained today. Urine revealed E coli. Blood culture has been negative. Ultrasound of the liver was inconclusive. DIAGNOSTIC IMPRESSION AND PLAN: Patient with fever. Concern for urinary tract infection and aspiration pneumonia plus/minus possible right periorbital hematoma in this patient who did have low hemoglobin. Did have a fall with significant right periorbital hematoma and left knee hemarthrosis. CT abdomen and pelvis will be obtained for tomorrow as the patient is more awake and alert and will be able to drink the contrast. Continue Zosyn at this point. Monitor clinical course closely. MMODL / IJN: [id number] /
[2019-06-27] MEDS: PIPERACILLIN-TAZOBACTAM 3.375 GM in SODIUM CHLORIDE 0.9% 100 ML IVPB SCH ×2 (02:40→12:59)
[2019-06-27] MEDS: SODIUM CHLORIDE 0.9% 1,000 ML IV SCH (05:03)
[2019-06-27 05:25] LABS: Anisocytosis Slight; HCT 21.7 % (34.0-46.0); Hypochromasia Moderate; MCHC 30.8 g/dL (31.0-37.0); MCV 97.5 fL (80.0-100.0); Macrocytosis Slight; Platelet Count 608 k/uL (150-450); Poikilocytosis Slight; RBC 2.22 m/uL (3.80-5.40); RDW 16.3 % (11.5-15.5); WBC 32.9 k/uL (3.8-10.6)
[2019-06-27 05:27] LABS: Albumin 2.2 g/dL (3.5-5.0); Calcium 8.7 mg/dL (8.4-10.2); Potassium 4.4 mmol/L (3.5-5.1); Total Bilirubin 1.4 mg/dL (0.2-1.3)
[2019-06-27 05:37] LABS: HGB 6.7 gm/dL (11.4-16.0)
[2019-06-27 05:55] LABS: Band Neutrophils % 2 %; Lymphocytes # (M) 1.32 k/uL (1.0-4.8); Neutrophils % (M) 94 %; Nucleated Red Blood Cells 0 /100 WBC (0-0); Polychromasia Present; Total Cells Counted 100
[2019-06-27] MEDS: ACETAMINOPHEN IV (For NPO) 1,000 MG in EMPTY BAG 1 BAG IVPB SCH (06:02)
[2019-06-27] MEDS: PANTOPRAZOLE 40 MG TABLET PO SCH ×2 (06:04→06:11)
[2019-06-27] MEDS: FERROUS SULFATE 325 MG TAB PO SCH (10:02)
[2019-06-27] MEDS: CYANOCOBALAMIN 500 MCG TAB PO SCH (10:02)
[2019-06-27] MEDS: CALCIUM CARB-VIT D 500MG-200UN 1 EACH TAB PO SCH ×2 (10:02→21:46)
[2019-06-27] MEDS: ISOSORBIDE MONONITRATE ER 30 MG TAB.ER.24H PO SCH (10:02)
[2019-06-27] MEDS: LISINOPRIL 20 MG TAB PO SCH (10:03)
[2019-06-27] MEDS: MAGNESIUM OXIDE 400 MG TAB PO SCH ×2 (10:03→21:46)
[2019-06-27] MEDS: PARoxetine 10 MG TAB PO SCH (10:04)
[2019-06-27] MEDS: METOPROLOL SUCCINATE (ER) 50 MG TAB.ER.24H PO SCH (10:04)
[2019-06-27] MEDS: PYRIDOXINE 50 MG TAB PO SCH (10:04)
[2019-06-27] MEDS: POTASSIUM CHLORIDE ER 20 MEQ TAB.ER PO SCH (10:04)
[2019-06-27 10:07] LABS: ABG HCO3 24 mmol/L (21-25); ABG Oxygen Saturation 95.6 % (94-97); ABG PCO2 38 mmHg (35-45); ABG PH 7.41 (7.35-7.45); ABG PO2 69 mmHg (83-108); ABG TCO2 25 mmol/L (19-24); Allen Test Performed? Yes
--- NOTE | 2019-06-27 13:02 | P.PN ---
Subjective Progress Note Date: 06/27/19 Principal diagnosis: On 06/26/2019 patient seen in follow-up on selective care unit. She ruled out for Covid 19. Patient is confused, but she opens eyes to voice and verbal and tactile stimulation, her speech times is incomprehensible, does not appear to be in any acute respiratory distress, she is on 2 L of oxygen with a pulse ox of 96%, hemodynamically stable, she is afebrile. She has a large right supraorbital hematoma, and she has mild bruising in the periorbital areas of her bilateral face. Patient has been febrile over the last 24 hours, with a T- max of 10 1F. Apparently rapid response team was called last night for concern of fever, increased respiratory rate, and decreased level of consciousness, a CT brain was repeated showing no acute intracranial abnormality, large frontal scalp hematoma, and there was no change compared to previous exam. Vital signs are stable, her blood gas showed pO2 of 110, pCO2 of 40, and pH of 7.43, this was done on FiO2 of 20%, and did not show any abnormality with the ventilation. Today's chest x-ray has been reviewed showing persistent atelectasis in the right lower lobe and/or infiltrate, no significant change. ID service is following, and patient is on antibiotics in the form of Zosyn and vancomycin, urine culture showed E. coli. On 06/27/2019 patient seen in follow-up on selective care unit, she is more leth argic on today's exam, she does arouse to vigorous tactile stimulation, opens eyes briefly, does not maintain eye contact, low-grade fevers today, room air pulse ox is 96-98%, hemodynamically patient is stable, she remains on a combination of Zosyn and vancomycin, urine culture showed E. coli, view of her decreased mentation, and increase in her white blood cell count on today's labs will obtain another set of blood cultures, and the blood gas. No nausea or vomiting, no complaints of abdominal pain, today's hemoglobin is 6.7 with no obvious signs of bleeding, right supraorbital hematoma appears to be unchanged, blood gas was reviewed, showing pO2 of 69, pCO2 of 38, and pH of 7.41, was done on FiO2 of 28%, showing acute hypoxemia requiring supplemental oxygen, but no ventilation abnormality. The rest of the labs have been reviewed showing sodium of 145, potassium is 4.4, Court is 118, CO2 is 21, BUN is 33, creatinine is 1.06. Liver enzymes are relatively stable, Coumadin and aspirin remain on hold. Overall prognosis is extremely guarded, and attending physician will discuss patient's plan of care, and goals of treatment with patient's son who is the guardian Objective - Vital Signs Vital signs: Vital Signs Temp 98.9 F 06/27/19 11:40 Pulse 78 06/27/19 11:40 Resp 16 06/27/19 11:40 BP 119/58 06/27/19 11:40 Pulse Ox 95 06/27/19 11:40 Intake & Output 06/26/19 06/27/19 06/27/19 18:59 06:59 18:59 Intake Total 480 450 Balance 480 450 Weight 104.5 kg Intake: Oral 480 140 Blood Product 310 Rc Pheresis 2 As3 Unit 310 [id number] Other: Voiding Method Diaper Diaper Incontinent Incontinent # Voids 1 1 # Bowel Movements 1 - Exam GENERAL EXAM: Alert, 73-year-old white female, confused, with extensive bruising in the periorbital area, and a large hematoma above the right eye comf ortable in no apparent distress. HEAD: Normocephalic/atraumatic. EYES: Normal reaction of pupils, equal size. Conjunctiva pink, sclera white. NOSE: Clear with pink turbinates. THROAT: No erythema or exudates. NECK: No masses, no JVD, no thyroid enlargement, no adenopathy. CHEST: No chest wall deformity. Symmetrical expansion. LUNGS: Equal air entry with no crackles, wheeze, rhonchi or dullness. CVS: Regular rate and rhythm, normal S1 and S2, no gallops, no murmurs, no rubs ABDOMEN: Soft, nontender. No hepatosplenomegaly, normal bowel sounds, no guarding or rigidity. EXTREMITIES: No clubbing, no edema, no cyanosis, 2+ pulses and upper and lower extremities. MUSCULOSKELETAL: Muscle strength and tone normal. Right [id number] amputation, there is a wound on the right stump, and the wound bed is clean, there is a silver dressing on, with no significant exudate SPINE: No scoliosis or deformity SKIN: No rashes CENTRAL NERVOUS SYSTEM: Alert and oriented -0. PSYCHIATRIC: Alert and oriented -0. Patient is confused - Labs CBC & Chem 7: 06/27/19 04:51 06/27/19 04:51 Labs: Abnormal Lab Results - Last 24 Hours (Table) 06/24/19 06/25/19 06/25/19 Range/Units 09:43 14:24 14:24 WBC (3.8-10.6) k/uL RBC (3.80-5.40) m/uL Hgb (11.4-16.0) gm/dL Hct (34.0-46.0) % MCHC (31.0-37.0) g/dL RDW (11.5-15.5) % Plt Count (150-450) k/uL Neutrophils # (Manual) (1.3-7.7) k/uL ABG pO2 (83-108) mmHg ABG Total CO2 (19-24) mmol/L Chloride (98-107) mmol/L Carbon Dioxide (22-30) mmol/L BUN (7-17) mg/dL Creatinine (0.52-1.04) mg/dL Glucose (74-99) mg/dL Ferritin 455.4 H (10.0-291.0) ng/mL Total Bilirubin (0.2-1.3) mg/dL AST (14-36) U/L ALT (4-34) U/L Alkaline Phosphatase (38-126) U/L Total Protein (6.3-8.2) g/dL Albumin (3.5-5.0) g/dL Procalcitonin 0.66 H (0.02-0.09) ng/mL Crossmatch See Detail 06/27/19 06/27/19 06/27/19 Range/Units 04:51 04:51 10:02 WBC 32.9 H (3.8-10.6) k/uL RBC 2.22 L (3.80-5.40) m/uL Hgb 6.7 L* (11.4-16.0) gm/dL Hct 21.7 L (34.0-46.0) % MCHC 30.8 L (31.0-37.0) g/dL RDW 16.3 H (11.5-15.5) % Plt Count 608 H (150-450) k/uL Neutrophils # (Manual) 31.50 H (1.3-7.7) k/uL ABG pO2 69 L (83-108) mmHg ABG Total CO2 25 H (19-24) mmol/L Chloride 118 H (98-107) mmol/L Carbon Dioxide 21 L (22-30) mmol/L BUN 33 H (7-17) mg/dL Creatinine 1.06 H (0.52-1.04) mg/dL Glucose 114 H (74-99) mg/dL Ferritin (10.0-291.0) ng/mL Total Bilirubin 1.4 H (0.2-1.3) mg/dL AST 110 H (14-36) U/L ALT 69 H (4-34) U/L Alkaline Phosphatase 224 H (38-126) U/L Total Protein 5.0 L (6.3-8.2) g/dL Albumin 2.2 L (3.5-5.0) g/dL Procalcitonin (0.02-0.09) ng/mL Crossmatch Microbiology - Last 24 Hours (Table) 06/25/19 07:12 Blood Culture - Preliminary Blood No Growth after 48 hours 06/22/19 13:17 Blood Culture - Preliminary Blood No Growth after 96 hours Assessment and Plan Plan: Assessment: 1 Acute hypoxic respiratory failure secondary to animal atelectasis/infiltrate in the right midlung. Suspect aspiration. 2 E coli urinary tract infection 3 Small faint subarachnoid blot/cortical contusion on the anterior right frontal lobe. No mass effect or midline shift. There is a liquefied enlarged right frontal scalp hematoma 4 Acute anemia requiring 2 units packed red blood cells. Current hemoglobin 7.9. 5 History of PE/DVT 6 Hypertension 7 Degenerative joint disease 8 Obesity 9 History of H. 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 Blood gas has been obtained and reviewed, no ventilation abnormality, she is on supplemental oxygen, maintain aspiration precautions. Overall prognosis is extremely guarded. The attending physician will discuss CODE STATUS with patient's son the guardian. Continue to follow and make further recommendations. I performed a history & physical examination of the patient and discussed their management with my nurse practitioner, Zena Rasmussen. I reviewed the nurse practitioner's note and agree with the documented findings and plan of care. Lung sounds are positive for diminished breath sounds. The findings and the impression was discussed with the patient. I attest to the documentation by the nurse practitioner. Time with Patient: Less than 30
--- NOTE | 2019-06-27 16:38 | CT ---
EXAMINATION TYPE: CT abdomen pelvis w con DATE OF EXAM: 06/27/2019 HISTORY: Fever and elevated liver enzymes CT DLP: 2353.5mGycm Automated Exposure Control for Dose Reduction was Utilized. CONTRAST: CT scan of the abdomen and pelvis is performed with IV Contrast, patient injected with 80 mL of Isovu e 300. COMPARISON: 08/30/2014 CT abdomen pelvis FINDINGS: There is motion artifact limiting the examination as well as the patient's arms positioned at the patient's side creating streak artifact limiting the upper abdomen. LUNG BASES: Right basilar consolidation is seen enhancing less than the paraspinal musculature sugges ting pneumonia. Air bronchograms are also seen. There is elevation of the right hemidiaphragm that hall s progressed from 2014 suggesting a component of atelectasis. There is a small hiatal hernia. Minimal atelectasis at the left lung base and motion artifact limiting the exam. LIVER/GB: No significant abnormality is appreciated. Gallbladder is surgically absent. PANCREAS: No significant abnormality is seen. SPLEEN: No significant abnormality is seen. ADRENALS: Right adrenal gland measures 1.8 cm and has a Hounsfield unit compatible with a lipid rich adenoma, benign finding. The left adrenal gland is unremarkable. KIDNEYS: The right kidney is slightly malrotated with its axis oriented anteriorly and an extrarenal pelvis is seen on the right. Although the kidneys are limited by motion artifact no gross evidence of hydronephrosis is seen. BOWEL: There is a very mild amount of fat stranding or fluid in the left lateral conal fascia. Circu mferential wall thickening of the cecum and ascending colon as well as the hepatic flexure is seen wi thout pericolonic fat stranding. No dilated large or small bowel. UTERUS/ADNEXA: Uterus is surgically absent. LYMPH NODES: No greater than 1cm abdominal or pelvic lymph nodes are appreciated. OSSEOUS STRUCTURES: There is diffuse osseous demineralization and grade 1 anterolisthesis of L5 on S1 likely secondary to hypertrophic facet change. Mild to moderate degenerative change of the spine. OTHER: Diastases recti is seen with global muscular atrophy. IMPRESSION: Motion and streak artifact from the patient's arms limit the examination. 1. Right basilar airspace disease is better seen on CT than x-ray and a component of pneumonia is dottie ntified enhancing less than the adjacent paraspinal musculature. Component of atelectasis also presum ed as there is right hemidiaphragm elevation that has progressed from 2015. 2. Very minimal amount of fat stranding in the left lateral conal fascia is nonspecific and could rel ate to a small amount of fluid or less likely colitis. There is also circumferential thickening of th e ascending colon and cecum. Finding could represent incomplete distention, stool products, colitis, or neoplasm. Correlate with any recent colonoscopy to determine the need for colonoscopy. 3. No gross abnormality of the liver in this patient with transaminitis although the liver is limited by streak artifact and motion.
--- NOTE | 2019-06-27 17:04 | P.PN ---
Subjective Progress Note Date: 06/27/19 Maria Teresa Celeste is a 73-year-old female resident of [facility] on the [facility] who sustained a fall with head trauma on 06/18/2019 at that time she was sent to emergency room and had a computed tomography scan of the brain and the cervical spine without contrast, she had evidence of a large frontal scalp hematoma and right periorbital hematoma but no intracranial bleeding, she was sent back to [facility] on the [facility]. On 06/22/2019 patient was noticed to have worsening mental status was more somnolence and less responsiveness by the nursing staff she was sent back to emergency room repeat computed tomography scan of the brain revealed evidence of minimal subarachnoid hemorrhage and possible intraparenchymal hemorrhage in the right periventricular white matter. Possibility of transferring patient to a tertiary care center was discussed in details in the emergency room, however due to the fact that trauma happened several days ago, and due to the fact that there is an epidemic of Covid 19 infection which is making it very difficult to transfer patient to [facility], and due to patient age and comorbidities which makes intracranial intervention exceedingly difficult, decision was made not to proceed with transferring patient, her son, (and current power of title attorney since her earlier this month) who was in the emergency room was in agreement of this decision. Patient was admitted to telemetry floor and neurology consultation was requested. Patient has a known history of DVT and PE, she was maintained on aspirin and Coumadin, these medications are now on hold. Patient also had evidence of urinary tract infection with sepsis as evidenced by temperature of 102.1 and leukocytosis white blood count was 14.0 and tachycardia was heart rate of 123 Patient will be given a fluid bolus lactic acid level was ordered but not resulted yet, she was given a dose of IV Rocephin in the emergency room Infectious disease consultation was requested, Covid 19 testing will be done due to elevated temperature On 06/23/2019 patient was seen and examined on the medical floor she is somnolent and responsive she answers questions briefly but goes back to sleep she is denying any pain or discomfort at this time she is denying shortness of breath or cough she is still having spikes of temperature to 102.4 neurology input reviewed will restart Coumadin tomorrow. On 06/24/2019 patient was seen and examined on the medical floor she is more alert and responsive today, white blood count is up to 15.4 hemoglobin 6.0 at this time Coumadin will be held again she will receive 1 unit of red blood cell transfusion then recheck CBC. Covid 19 testing is still pending patient is still having spikes of temperature or fever this morning was 100.7 she still has tachycardia and low oxygen saturation of 89% on room air On 06/25/2019 patient was seen and examined on the medical floor she is somnolent opens eyes and responsive to stimuli and answers few questions with yes or no" since her eyes again she is still having some fever liver enzymes are more elevated today, white blood count is improving, she is still maintained on IV antibiotic for urinary tract infection albumin level is lower at 2.7 patient has poor oral intake On 06/26/2019 patient was seen and examined on the medical floor she is more alert and responsive today she is answering questions appropriately there is no fever or chills no headache or dizziness no chest pain or shortness of breath no cough no nausea or vomiting no abdominal pain no diarrhea and no urinary symptoms. On 06/27/2019 patient was seen and examined on the medical floor she is alert responsive to stimuli and answers few questions and closes her eyes there is no fever or chills no headache or dizziness no chest pain no shortness of breath no cough, no nausea or vomiting no abdominal pain no diarrhea no burning was urination no frequency or urgency and no hematuria, white blood count is increasing up to 32.9 patient is maintained on Zosyn and vancomycin, infectious disease following Objective - Vital Signs Vital signs: Vital Signs Temp 98.9 F 06/27/19 12:00 Pulse 78 06/27/19 12:00 Resp 16 06/27/19 16:00 BP 119/58 06/27/19 12:00 Pulse Ox 95 06/27/19 12:00 Intake & Output 06/26/19 06/27/19 06/27/19 18:59 06:59 18:59 Intake Total 480 540 Output Total 0 Balance 480 540 Weight 104.5 kg Intake: Oral 480 230 Blood Product 310 Rc Pheresis 2 As3 Unit 310 [id number] Output: Urine 0 Other: Voiding Method Diaper Diaper Diaper Incontinent Incontinent Incontinent # Voids 1 1 0 # Bowel Movements 1 0 - Exam In general patient is somnolent responsive answering questions by yes or no and quickly goes back to closing her eyes HEENT with significant trauma and hematoma to the face Neck is supple no JVD no goiter no lymphadenopathy Chest exam reveals a few scattered rhonchi no wheezing Cardiac exam reveals regular heart sounds S1 and S2 with tachycardia no gallops no murmurs Abdomen is soft nontender no organomegaly with normal bowel sounds Extremity exam reveals right above-knee amputation and left was 2+ edema Neurological examination mental status as above otherwise no focal neurological deficit at this time - Labs CBC & Chem 7: 06/27/19 04:51 06/27/19 04:51 Labs: Abnormal Lab Results - Last 24 Hours (Table) 06/24/19 06/27/19 06/27/19 Range/Units 09:43 04:51 04:51 WBC 32.9 H (3.8-10.6) k/uL RBC 2.22 L (3.80-5.40) m/uL Hgb 6.7 L* (11.4-16.0) gm/dL Hct 21.7 L (34.0-46.0) % MCHC 30.8 L (31.0-37.0) g/dL RDW 16.3 H (11.5-15.5) % Plt Count 608 H (150-450) k/uL Neutrophils # (Manual) 31.50 H (1.3-7.7) k/uL ABG pO2 (83-108) mmHg ABG Total CO2 (19-24) mmol/L Chloride 118 H (98-107) mmol/L Carbon Dioxide 21 L (22-30) mmol/L BUN 33 H (7-17) mg/dL Creatinine 1.06 H (0.52-1.04) mg/dL Glucose 114 H (74-99) mg/dL Total Bilirubin 1.4 H (0.2-1.3) mg/dL AST 110 H (14-36) U/L ALT 69 H (4-34) U/L Alkaline Phosphatase 224 H (38-126) U/L Total Protein 5.0 L (6.3-8.2) g/dL Albumin 2.2 L (3.5-5.0) g/dL Crossmatch See Detail 06/27/19 Range/Units 10:02 WBC (3.8-10.6) k/uL RBC (3.80-5.40) m/uL Hgb (11.4-16.0) gm/dL Hct (34.0-46.0) % MCHC (31.0-37.0) g/dL RDW (11.5-15.5) % Plt Count (150-450) k/uL Neutrophils # (Manual) (1.3-7.7) k/uL ABG pO2 69 L (83-108) mmHg ABG Total CO2 25 H (19-24) mmol/L Chloride (98-107) mmol/L Carbon Dioxide (22-30) mmol/L BUN (7-17) mg/dL Creatinine (0.52-1.04) mg/dL Glucose (74-99) mg/dL Total Bilirubin (0.2-1.3) mg/dL AST (14-36) U/L ALT (4-34) U/L Alkaline Phosphatase (38-126) U/L Total Protein (6.3-8.2) g/dL Albumin (3.5-5.0) g/dL Crossmatch Microbiology - Last 24 Hours (Table) 06/22/19 13:17 Blood Culture - Preliminary Blood No Growth after 120 hours 06/25/19 07:12 Blood Culture - Preliminary Blood No Growth after 48 hours Assessment and Plan Plan: 1. Recent fall with head trauma 5 days ago with computed tomography scan revealing minimal subarachnoid hemorrhage and possible intra-parenchymal hemorrhage in the right periventricular white matter. At this time aspirin and Coumadin are held, neurology consultation was requested. I have discussed this case in details with her son who is the power of title attorney at this time. Decision at this time is not to transfer patient to a tertiary care center due to the fact that trauma happened 5 days ago and due to current conditions with Covid 19 epidemic. Son is in agreement not to transfer patient. 2. Urinary tract infection with sepsis, urine culture and blood cultures requested, patient started on IV Rocephin, infectious disease consultation reque sted 3. Mental status changes, due to metabolic encephalopathy related to sepsis, and possibly to intracranial bleeding, will monitor closely 4. Underlying history of hypertention, home blood pressure medication are resumed will monitor 5. Tachycardia, will give fluid bolus 250 mL and reassess medications including metoprolol were resumed 6. Febrile illness was temperature of 102, could be related to urinary tract infection however will check Covid 19 Will consult infectious disease 7. 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 8. Previous history of DVT and PE maintained on Coumadin at this time Coumadin is on hold Will resume when advised by neurology 9. Underlying history of anemia. At this time patient is admitted to telemetry floor, she is started on IV fluid and IV antibiotics Neurology consultation and infectious disease consultation are requested Coumadin and aspirin are on hold At this time patient remains a full code which will be discussed further with her son Will add pulmonary and critical care consult Prognosis is guarded
--- NOTE | 2019-06-27 17:16 | P.PN ---
Progress Note - Text Progress Note Date: 06/27/19 This is an addendum to the note on Maria Teresa dove I spoke to her son Jersey Evangelisat phone number [phone] he is also the legal guardian He was updated on patient's condition in details CODE STATUS was discussed in details At this time Jersey feels that patient should be a full code as this was her wishes that she expressed to him.
--- NOTE | 2019-06-27 19:49 | PN ---
PROGRESS NOTE DATE OF SERVICE: 06/27/2019 REASON FOR FOLLOWUP: Pneumonia. INTERVAL HISTORY: The patient's overall fever pattern has improved. She did have a low-grade fever of 100.2 last night; however, the patient has been afebrile since then. She is breathing comfortably. Denies having any chest pain or cough. No nausea, vomiting, abdominal pain or diarrhea. Overall seems to be less lethargic today. PHYSICAL EXAMINATION: Blood pressure 124/60 with a pulse of 109, temperature 98.7. She is 98% on 2 L nasal cannula. General description is an elderly female lying in bed in no distress. RESPIRATORY SYSTEM: Unlabored breathing with decreased breath sounds at the base. No wheeze. HEART: S1, S2. Regular rate and rhythm. ABDOMEN: Soft. No tenderness. LABS: Hemoglobin is 6.7, white count 32.9 with a BUN of 33, creatinine 1.06. Urine with E coli. Blood culture has been negative. DIAGNOSTIC IMPRESSION AND PLAN: Patient with fever; initial concern for urinary tract infection. Subsequently concerning for pneumonia in this patient with worsening of the white count. A CT of abdomen and pelvis has been done to make sure no evidence of any retroperitoneal hematoma in this patient who did have significant drop in her hemoglobin and did have a fall. The patient had evidence of pneumonia on the CT and a question of colitis. The patient is currently covered with Zosyn diarrhea has been reported. We will monitor her clinical course closely and continue with supportive care. MMODL / IJN: [id number] /
--- NOTE | 2019-06-27 20:00 | P.PN ---
Subjective subjective: No acute events reported overnight by nursing. Patient still remains withdrawn with little ability to have a normal conversation. She is however improving with her ability to follow some simple commands and to request things from the nurses. Objective - Vital Signs Vital signs: Vital Signs Temp 98.7 F 06/27/19 16:00 Pulse 109 H 06/27/19 16:00 Resp 16 06/27/19 16:00 BP 124/60 06/27/19 16:00 Pulse Ox 98 06/27/19 16:00 Intake & Output 06/27/19 06/27/19 06/28/19 06:59 18:59 06:59 Intake Total 630 Output Total 0 Balance 630 Weight 104.5 kg Intake: Oral 320 Blood Product 310 Rc Pheresis 2 As3 Unit 310 [id number] Output: Urine 0 Other: Voiding Method Diaper Diaper Incontinent Incontinent # Voids 1 1 # Bowel Movements 1 0 - Exam objective: Patient examined and chart reviewed. CT of the brain from June 24 again reviewed showing the large frontal scalp hematoma with no interval changes. This is compared to June 22. Liver ultrasound shows no evidence of mass or kidney obstruction Chest x-ray today shows persistent atelectasis( with right lower lobe infiltrate. Wound notes indicate that she still has a nonhealing ulcer of the right lower extremity. labs reviewed showing significant decrease in hemoglobin. CT of abdomen and pelvis pending. Neurological exam Patient is asleep but arousable. Patient's speech is very hypophonic and slowed slightly dysarthric. Patient was very uncooperative with examination and often would state somewhat derogatory statements showing irritability. pupils: 2 mm on the right eye opening (left eye blind) reactive to light. Cranial nerves: Patient was able to track and follow commands with the right eye. No nystagmus was noted on vertical horizontal gaze. Face appears symmetric. Cough is intact. Shoulder shrug is intact. Motor examination patient was uncooperative during this examination and gave very little effort to move her extremities. Her hand grasp is very weak with little effort. Deep tendon reflexes deferred. Sensory: Patient reports intact sensation to pinprick and light touch throughout. - Labs CBC & Chem 7: 06/27/19 04:51 06/27/19 04:51 Labs: Abnormal Lab Results - Last 24 Hours (Table) 06/24/19 06/27/19 06/27/19 Range/Units 09:43 04:51 04:51 WBC 32.9 H (3.8-10.6) k/uL RBC 2.22 L (3.80-5.40) m/uL Hgb 6.7 L* (11.4-16.0) gm/dL Hct 21.7 L (34.0-46.0) % MCHC 30.8 L (31.0-37.0) g/dL RDW 16.3 H (11.5-15.5) % Plt Count 608 H (150-450) k/uL Neutrophils # (Manual) 31.50 H (1.3-7.7) k/uL ABG pO2 (83-108) mmHg ABG Total CO2 (19-24) mmol/L Chloride 118 H (98-107) mmol/L Carbon Dioxide 21 L (22-30) mmol/L BUN 33 H (7-17) mg/dL Creatinine 1.06 H (0.52-1.04) mg/dL Glucose 114 H (74-99) mg/dL Total Bilirubin 1.4 H (0.2-1.3) mg/dL AST 110 H (14-36) U/L ALT 69 H (4-34) U/L Alkaline Phosphatase 224 H (38-126) U/L Total Protein 5.0 L (6.3-8.2) g/dL Albumin 2.2 L (3.5-5.0) g/dL Crossmatch See Detail 06/27/19 Range/Units 10:02 WBC (3.8-10.6) k/uL RBC (3.80-5.40) m/uL Hgb (11.4-16.0) gm/dL Hct (34.0-46.0) % MCHC (31.0-37.0) g/dL RDW (11.5-15.5) % Plt Count (150-450) k/uL Neutrophils # (Manual) (1.3-7.7) k/uL ABG pO2 69 L (83-108) mmHg ABG Total CO2 25 H (19-24) mmol/L Chloride (98-107) mmol/L Carbon Dioxide (22-30) mmol/L BUN (7-17) mg/dL Creatinine (0.52-1.04) mg/dL Glucose (74-99) mg/dL Total Bilirubin (0.2-1.3) mg/dL AST (14-36) U/L ALT (4-34) U/L Alkaline Phosphatase (38-126) U/L Total Protein (6.3-8.2) g/dL Albumin (3.5-5.0) g/dL Crossmatch Microbiology - Last 24 Hours (Table) 06/22/19 13:17 Blood Culture - Preliminary Blood No Growth after 120 hours 06/25/19 07:12 Blood Culture - Preliminary Blood No Growth after 48 hours Assessment and Plan Plan: Assessment and recommendations: This is a 73-year-old female with admitted for scalp hematoma, small SAH & intra-parenchymal bled while on coumadin/ poor wound healing. Patient was seen by neurology for altered mental status and evaluation for a very small subarachnoid hemorrhage and a tiny intraparenchymal bleed. On examination today she was able to follow some commands but was somewhat irritable and said some statements that appeared inappropriate. She gave very little effort to try during the examination I believe she did comprehend to some extent. Overall this patient's underlying metabolic condition is contributing to her current poor mental status. I also suspect this patient may have significant depression underlying psychiatric issues. Recommendation 1. Continue close monitoring of patient's neurological status. Neuro checks per nursing protocol every 4 hours. 2. We'll still continue to hold Coumadin until next week we'll reevaluate. Patient still has significant bruising that could be exacerbated with active bleeding if she is restarted. We'll discuss this further 2 with cardiology potentially starting her within the next week to 10 days. 3. Physical therapy occupational therapy and speech therapy should be working with her daily. 4. Consider follow-up EEG this or early next week. 5. There is any acute neurological changes patient should have a stat computed tomography scan of the head noncontrast with neurology contacted. This patient's prognosis remains guarded. The recommendations will be made as case evolves.
[2019-06-27] MEDS: ALLOPURINOL 300 MG TAB PO SCH (21:46)
[2019-06-27] MEDS: MULTIVITAMINS, THERA 1 EACH TAB PO SCH (21:46)
[2019-06-27] MEDS: FOLIC ACID 1 MG TAB PO SCH (21:46)
[2019-06-27] MEDS: VANCOMYCIN 1,750 MG in SODIUM CHLORIDE 0.9% 500 ML 500 ML IVPB SCH (23:32)
[2019-06-28] MEDS: PIPERACILLIN-TAZOBACTAM 3.375 GM in SODIUM CHLORIDE 0.9% 100 ML IVPB SCH ×5 (03:01→23:43)
[2019-06-28] MEDS: SODIUM CHLORIDE 0.9% 1,000 ML IV SCH ×4 (03:11→17:36)
[2019-06-28] MEDS: PANTOPRAZOLE 40 MG TABLET PO SCH (06:40)
[2019-06-28] MEDS: LISINOPRIL 20 MG TAB PO SCH ×3 (07:57→15:50)
[2019-06-28] MEDS: PARoxetine 10 MG TAB PO SCH ×3 (07:57→15:50)
[2019-06-28 08:08] LABS: Anisocytosis Slight; HCT 23.7 % (34.0-46.0); HGB 7.3 gm/dL (11.4-16.0); Hypochromasia Moderate; MCH 29.8 pg (25.0-35.0); MCHC 30.9 g/dL (31.0-37.0); MCV 96.5 fL (80.0-100.0); Macrocytosis Slight; Mean Platelet Volume 8.3; Platelet Count 642 k/uL (150-450); Poikilocytosis Moderate; RBC 2.46 m/uL (3.80-5.40); RDW 17.5 % (11.5-15.5); WBC 31.8 k/uL (3.8-10.6)
[2019-06-28] MEDS: METOPROLOL SUCCINATE (ER) 50 MG TAB.ER.24H PO SCH (09:48)
[2019-06-28] MEDS: MAGNESIUM OXIDE 400 MG TAB PO SCH ×2 (09:48→22:07)
[2019-06-28] MEDS: CYANOCOBALAMIN 500 MCG TAB PO SCH (09:48)
[2019-06-28] MEDS: CALCIUM CARB-VIT D 500MG-200UN 1 EACH TAB PO SCH ×2 (09:48→22:07)
[2019-06-28] MEDS: POTASSIUM CHLORIDE ER 20 MEQ TAB.ER PO SCH (09:48)
[2019-06-28] MEDS: ISOSORBIDE MONONITRATE ER 30 MG TAB.ER.24H PO SCH (09:49)
[2019-06-28] MEDS: FERROUS SULFATE 325 MG TAB PO SCH (09:49)
[2019-06-28] MEDS: PYRIDOXINE 50 MG TAB PO SCH (09:49)
[2019-06-28] MEDS: ACETAMINOPHEN TAB 500 MG TAB PO PRN ×2 (10:11→22:10)
[2019-06-28 12:32] LABS: Albumin 2.2 g/dL (3.5-5.0); Calcium 9.1 mg/dL (8.4-10.2); Potassium 4.3 mmol/L (3.5-5.1); Total Bilirubin 1.5 mg/dL (0.2-1.3); Total Protein 5.2 g/dL (6.3-8.2)
[2019-06-28 12:59] LABS: Partial Thromboplastin Time 33.9 sec (22.0-30.0); Prothrombin Time 57.7 sec (9.0-12.0)
[2019-06-28 13:06] LABS: INR 5.7 (<1.2)
--- NOTE | 2019-06-28 13:24 | P.PN ---
Subjective Progress Note Date: 06/28/19 Principal diagnosis: On 06/26/2019 patient seen in follow-up on selective care unit. She ruled out for Covid 19. Patient is confused, but she opens eyes to voice and verbal and tactile stimulation, her speech times is incomprehensible, does not appear to be in any acute respiratory distress, she is on 2 L of oxygen with a pulse ox of 96%, hemodynamically stable, she is afebrile. She has a large right supraorbital hematoma, and she has mild bruising in the periorbital areas of her bilateral face. Patient has been febrile over the last 24 hours, with a T- max of 10 1F. Apparently rapid response team was called last night for concern of fever, increased respiratory rate, and decreased level of consciousness, a CT brain was repeated showing no acute intracranial abnormality, large frontal scalp hematoma, and there was no change compared to previous exam. Vital signs are stable, her blood gas showed pO2 of 110, pCO2 of 40, and pH of 7.43, this was done on FiO2 of 20%, and did not show any abnormality with the ventilation. Today's chest x-ray has been reviewed showing persistent atelectasis in the right lower lobe and/or infiltrate, no significant change. ID service is following, and patient is on antibiotics in the form of Zosyn and vancomycin, urine culture showed E. coli. On 06/27/2019 patient seen in follow-up on selective care unit, she is more leth argic on today's exam, she does arouse to vigorous tactile stimulation, opens eyes briefly, does not maintain eye contact, low-grade fevers today, room air pulse ox is 96-98%, hemodynamically patient is stable, she remains on a combination of Zosyn and vancomycin, urine culture showed E. coli, view of her decreased mentation, and increase in her white blood cell count on today's labs will obtain another set of blood cultures, and the blood gas. No nausea or vomiting, no complaints of abdominal pain, today's hemoglobin is 6.7 with no obvious signs of bleeding, right supraorbital hematoma appears to be unchanged, blood gas was reviewed, showing pO2 of 69, pCO2 of 38, and pH of 7.41, was done on FiO2 of 28%, showing acute hypoxemia requiring supplemental oxygen, but no ventilation abnormality. The rest of the labs have been reviewed showing sodium of 145, potassium is 4.4, Court is 118, CO2 is 21, BUN is 33, creatinine is 1.06. Liver enzymes are relatively stable, Coumadin and aspirin remain on hold. Overall prognosis is extremely guarded, and attending physician will discuss patient's plan of care, and goals of treatment with patient's son who is the guardian On 06/28/2019 patient seen in follow-up on selective care unit, she is resting in bed, she is febrile with a temp of 99.5 axillary, and patient was already given antipyretics, her respirations are tachypneic, however there are no wheezes, or rhonchi, she is on 2 L of oxygen and the pulse ox of 96-99%, hemodynamically patient is stable, slightly tachycardic, tachypneic as mentioned above. Yesterday we send a set of blood cultures and are pending for now. Right hzjxx-xks-[id number] amputation stump wound appears to be clean dry, : Care is being done, ID service is following, patient is on a combination of Zosyn and vancomycin, oral intake has been extremely poor, we will obtain speech evaluation consultation. And is lethargic, but opens eyes to verbal stimulation, she is not following commands, she is not maintaining eye contact, today's labs have been reviewed showing slightly decreased white blood cell, wit h a WBC of 31.8, hemoglobin of 7.3, patient did receive a unit of blood yesterday for hemoglobin of 6.7, and her has been no obvious source of bleeding, platelet 642, INR today is 5.7, sodium is 143, potassium is 4.3, chloride is 1:15, CO2 is 22, BUN is 21, creatinine 0.78, liver enzymes are trending down, LDH remains elevated at 646, and patient was tested negative for cold mid 19, neurology is following, anticoagulation remains on hold Objective - Vital Signs Vital signs: Vital Signs Temp 99.3 F 06/28/19 12:00 Pulse 104 H 06/28/19 12:00 Resp 28 H 06/28/19 12:00 BP 132/66 06/28/19 12:00 Pulse Ox 99 06/28/19 12:00 Intake & Output 06/27/19 06/28/19 06/28/19 18:59 06:59 18:59 Intake Total 630 90 Output Total 0 Balance 630 90 Weight 108.5 kg Intake: Oral 320 90 Blood Product 310 Rc Pheresis 2 As3 Unit 310 [id number] Output: Urine 0 Other: Voiding Method Diaper Diaper Indwelling Catheter Incontinent Incontinent # Voids 1 1 0 # Bowel Movements 0 - Exam GENERAL EXAM: Alert, 73-year-old white female, confused, tachypneic, febrile with extensive bruising in the periorbital area, and a large hematoma above the right eye comfortable in no apparent distress. HEAD: Normocephalic/atraumatic. EYES: Normal reaction of pupils, equal size. Conjunctiva pink, sclera white. NOSE: Clear with pink turbinates. THROAT: No erythema or exudates. NECK: No masses, no JVD, no thyroid enlargement, no adenopathy. CHEST: No chest wall deformity. Symmetrical expansion. LUNGS: Equal air entry with no crackles, wheeze, rhonchi or dullness. CVS: Regular rate and rhythm, normal S1 and S2, no gallops, no murmurs, no rubs ABDOMEN: Soft, nontender. No hepatosplenomegaly, normal bowel sounds, no guarding or rigidity. EXTREMITIES: No clubbing, no edema, no cyanosis, 2+ pulses and upper and lower extremities. MUSCULOSKELETAL: Muscle strength and tone normal. Right jkpsg-[id number] amputation, there is a wound on the right stump, and the wound bed is clean, there is a silver dressing on, with no significant exudate SPINE: No scoliosis or deformity SKIN: No rashes CENTRAL NERVOUS SYSTEM: Alert and oriented -0. PSYCHIATRIC: Alert and oriented -0. Patient is confused - Labs CBC & Chem 7: 06/28/19 05:34 06/28/19 11:46 Labs: Abnormal Lab Results - Last 24 Hours (Table) 06/24/19 06/28/19 06/28/19 Range/Units 09:43 05:34 11:46 WBC 31.8 H (3.8-10.6) k/uL RBC 2.46 L (3.80-5.40) m/uL Hgb 7.3 L (11.4-16.0) gm/dL Hct 23.7 L (34.0-46.0) % MCHC 30.9 L (31.0-37.0) g/dL RDW 17.5 H (11.5-15.5) % Plt Count 642 H (150-450) k/uL PT 57.7 H (9.0-12.0) sec INR 5.7 H* (<1.2) APTT 33.9 H (22.0-30.0) sec Chloride (98-107) mmol/L BUN (7-17) mg/dL Glucose (74-99) mg/dL Total Bilirubin (0.2-1.3) mg/dL AST (14-36) U/L ALT (4-34) U/L Alkaline Phosphatase (38-126) U/L Lactate Dehydrogenase (313-618) U/L Total Protein (6.3-8.2) g/dL Albumin (3.5-5.0) g/dL Crossmatch See Detail 06/28/19 Range/Units 11:46 WBC (3.8-10.6) k/uL RBC (3.80-5.40) m/uL Hgb (11.4-16.0) gm/dL Hct (34.0-46.0) % MCHC (31.0-37.0) g/dL RDW (11.5-15.5) % Plt Count (150-450) k/uL PT (9.0-12.0) sec INR (<1.2) APTT (22.0-30.0) sec Chloride 115 H (98-107) mmol/L BUN 21 H (7-17) mg/dL Glucose 127 H (74-99) mg/dL Total Bilirubin 1.5 H (0.2-1.3) mg/dL AST 53 H (14-36) U/L ALT 47 H (4-34) U/L Alkaline Phosphatase 202 H (38-126) U/L Lactate Dehydrogenase 646 H (313-618) U/L Total Protein 5.2 L (6.3-8.2) g/dL Albumin 2.2 L (3.5-5.0) g/dL Crossmatch Microbiology - Last 24 Hours (Table) 06/27/19 10:33 Blood Culture - Preliminary Blood No Growth after 24 hours 06/25/19 07:12 Blood Culture - Preliminary Blood No Growth after 72 hours 06/22/19 13:17 Blood Culture - Preliminary Blood No Growth after 120 hours Assessment and Plan Plan: Assessment: 1 Acute hypoxic respiratory failure secondary to animal atelectasis/infiltrate in the right midlung. Suspect aspiration. 2 E coli urinary tract infection 3 Small faint subarachnoid blot/cortical contusion on the anterior right frontal lobe. No mass effect or midline shift. There is a liquefied enlarged right frontal scalp hematoma 4 Acute anemia requiring 2 units packed red blood cells. Current hemoglobin 7.9. 5 History of PE/DVT 6 Hypertension 7 Degenerative joint disease 8 Obesity 9 History of H. 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 No pulmonary complaints, she is tachypneic secondary to fever, but no rhonchi, no wheezing, she is on room air. Nephrology is following for neurological status, overall prognosis is quite guarded, with poor baseline functional performance, and apparently the attending physician already spoke to the son who wants continue with full code for now. Continue supportive care. Overall prognosis is guarded I performed a history & physical examination of the patient and discussed their management with my nurse practitioner, Zena Rasmussen. I reviewed the nurse practitioner's note and agree with the documented findings and plan of care. Lung sounds are positive for diminished breath sounds. The findings and the impression was discussed with the patient. I attest to the documentation by the nurse practitioner. Time with Patient: Less than 30
[2019-06-28 13:28] LABS: Appearance,Urine Turbid (Clear); Bacteria,Urine Occasional /hpf; Bilirubin,Urine Negative (Negative); Blood,Urine Moderate (Negative); Color,Urine Yellow; Glucose,Urine (UA) Negative (Negative); Ketones,Urine Negative (Negative); Leukocyte Esterase,Urine Large (Negative); Mucus,Urine Rare /hpf; Nitrite,Urine Negative (Negative); PH, Urine 5.5 (5.0-8.0); Protein,Urine 1+ (Negative); RBC,Urine 20 /hpf (0-5); Specific Gravity,Urine 1.042 (1.001-1.035); Squamous Epithelial Cell,Urine 7 /hpf (0-4); Urobilinogen,Urine <2.0 mg/dL (<2.0); WBC,Urine 74 /hpf (0-5)
--- NOTE | 2019-06-28 14:20 | P.CONS ---
History of Present Illness - Reason for Consult Consult date: 06/28/19 Anemia Requesting physician: Gage Gastelum - Chief Complaint Status Post Fall - History of Present Illness This is a 72-year-old patient with multiple co-morbisities at baseline, she resides at [facility]. She originally presented after head trauma with frontal hematoma. She had below knee amputation in January 2019. Has a history of PE and DVT and has been managed on Coumadin and Aspirin, although currently on hold for concern of bleeding subdural after fall and head trauma. She has fever on admission, COVID neg, UTI and ID is following. Her hemoglobin is chronically decreased, baseline 10-11, today 7.3 therefore hematology was asked to further evaluate. Patient's past medical history includes deep vein thrombosis, reflux, hyperlipidemia, memory impairment, DVT, pulmonary embolism, renal disease (per notes unknown details). Review of Systems 14 point review assessed and completed and neg except HPI, patient is poor historian Past Medical History Past Medical History: Deep Vein Thrombosis (DVT), Eye Disorder, GERD/Reflux, Hyperlipidemia, Hypertension, Memory Impairment, Osteoarthritis (OA), Pulmonary Embolus (PE), Renal Disease Additional Past Medical History / Comment(s): Fall 5 days ago with head trauma, has frontal hematoma, chronic oseomylitis R femur/R total knee with infection with surgery/ R AKA in January 2019-son states pt then had renal fa ilure/temporary dialysis and has had memory issues ever since amputation, R stump infection/necrosis with surgery/wound vac now healed, bilateral PEs, DVT- laterallity unknown, 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 MDRO Source:: Right knee Past Surgical History: Hysterectomy, Joint Replacement, Orthopedic Surgery, Tubal Ligation Additional Past Surgical History / Comment(s): Sternocleidomastoidectomy (right), right shoulder rotator cuff, rectocele/cystocele, right foot - Varma's neuroma/hammer toe, left outer forearm arthroscopy and shortening left ulna - plates and screws inserted, right wrist bundle of nerves , right knee arthroscopy/realignment of tendon/tibia/kneecap, R femur rods, R tibia with screws, 07-20-13 right knee replacement/removal and antibiotic spacer placed, 08-10-13 large hematoma removed, BL vitrectomies, BL cataract surgery, right right femur benign tumor removed, left foot bone spur, EGD, colonoscopies,. Right AKA done on Feb 13 per Pt of this year. Past Anesthesia/Blood Transfusion Reactions: Postoperative Nausea & Vomiting (PONV) Additional Past Anesthesia/Blood Transfusion Reaction / Comm: no complications with prior blood transfusion Smoking Status: Never smoker - Past Family History Brother(s) Family Medical History: Cancer, Congestive Heart Failure (CHF) Additional Family Medical History / Comment(s): Heart problems, CABG, oral CA, pacemaker/defib. Father Family Medical History: Congestive Heart Failure (CHF), Hyperlipidemia, Hypertension, Myocardial Infarction (AK) Additional Family Medical History / Comment(s): at 97 years old. Mother Family Medical History: Congestive Heart Failure (CHF), CVA/TIA Additional Family Medical History / Comment(s): Pacemaker - January 16 at age 94 a few days after CVA. Medications and Allergies Home Medications Medication Instructions Recorded Confirmed Type Allopurinol [Zyloprim] 300 mg PO HS@209908/21/14 06/22/19 History Multivitamins, Thera [Multivitamin 1 tab PO HS@209911/17/15 06/22/19 History (formulary)] Acetaminophen Tab [Tylenol] 650 mg PO Q6H PRN 02/02/18 06/22/19 History Isosorbide Mononitrate ER [Imdur] 30 mg PO DAILY@0900 02/02/18 06/22/19 History Pravastatin Sodium [Pravachol] 20 mg PO HS@209902/02/18 06/22/19 History PARoxetine HCL [Paxil] 30 mg PO BID@0900,1700 03/27/18 06/22/19 History Aspirin 325 mg PO DAILY@0900 03/18/19 06/22/19 History Calcium Carbonate/Vitamin D3 1 tab PO BID@0900,209903/18/19 06/22/19 History [Calcium 600-Vit D3 400 Tablet] LORazepam [Ativan] 0.5 mg PO BID@0900,1700 03/18/19 06/22/19 History Ondansetron HCl [Zofran] 4 mg PO Q6H PRN 03/18/19 06/22/19 History Artificial Tears-Hypromellose 1 drop BOTH EYES Q1H PRN 06/18/19 06/22/19 History [Artificial Tear Drops] Cyanocobalamin [Vitamin B-12] 500 mcg PO DAILY@0900 06/18/19 06/22/19 History Ferrous Sulfate [Feosol] 325 mg PO DAILY@0900 06/18/19 06/22/19 History Folic Acid 1 mg PO HS@209906/18/19 06/22/19 History Lisinopril [Zestril] 20 mg PO BID@0900,1700 06/18/19 06/22/19 History Loperamide [Imodium] 2 mg PO Q6H PRN 06/18/19 06/22/19 History Magnesium Oxide 400 mg PO BID@0900,209906/18/19 06/22/19 History Menthol-Zinc Oxide Oint 1 applic TOPICAL Q6H PRN 06/18/19 06/22/19 History [Calmoseptine Oint] Metoprolol Succinate (ER) [Toprol 50 mg PO DAILY@0900 06/18/19 06/22/19 History Xl] Pantoprazole Sodium [Protonix] 40 mg PO DAILY@0600 06/18/19 06/22/19 History Potassium Chloride ER [K-Dur 20] 20 meq PO DAILY@0900 06/18/19 06/22/19 History Warfarin [Coumadin] 2 mg PO HS@1700 06/18/19 06/22/19 History Diazepam [Valium] 5 mg PO Q6H PRN 06/22/19 06/22/19 History Allergies Allergy/AdvReac Type Severity Reaction Status Date / Time adhesive Allergy Rash/Hives Verified 06/22/19 12:21 carbamazepine [From Tegretol] Allergy Rash/Hives Verified 06/22/19 12:21 carisoprodol [From Soma] Allergy lowers b/p Verified 06/22/19 12:21 quickly & passes out corn Allergy Unknown Verified 06/22/19 12:21 doxycycline calcium Allergy Rash/Hives Verified 06/22/19 12:21 [From Vibramycin] doxycycline hyclate Allergy Rash/Hives,vomited Verified 06/22/19 12:21 [From Vibramycin] blood doxycycline monohydrate Allergy Rash/Hives,vomited Verified 06/22/19 12:21 [From Vibramycin] blood erythromycin base Allergy Rash/Hives,vomited Verified 06/22/19 12:21 [From E-Mycin] blood hydrocodone bitartrate Allergy abdominal Verified 06/22/19 12:21 [From Vicodin] pain, diarrhea milk Allergy Unknown Verified 06/22/19 12:21 NSAIDS (Non-Steroidal Allergy Swelling Verified 06/22/19 12:21 Anti-Inflamma piroxicam [From Feldene] Allergy Swelling Verified 06/22/19 12:21 ciprofloxacin [From Cipro] AdvReac Nausea & Verified 06/22/19 12:21 Vomiting wheat AdvReac Diarrhea Verified 06/22/19 12:21 Physical Exam Vitals: Vital Signs Temp Pulse Resp BP Pulse Ox 06/28/19 12:00 99.3 F 104 H 28 H 132/66 99 06/28/19 08:00 100.7 F H 126 H 40 H 140/69 96 06/28/19 04:00 98.1 F 120 H 20 131/78 95 06/28/19 00:00 97.9 F 124 H 18 124/78 96 06/27/19 20:15 98.1 F 111 H 16 132/65 95 06/27/19 16:00 98.7 F 109 H 16 124/60 98 Intake and Output 06/27/19 06/28/19 06/28/19 22:59 06:59 14:59 Intake Total 90 90 Balance 90 90 Intake: Oral 90 90 Other: Voiding Method Diaper Diaper Indwelling Catheter Incontinent Incontinent # Voids 1 1 0 Weight 108.5 kg 108.5 kg Gen: ALert Head: Right large trauma bump, dried blood Neck Supple Lungs: No increased effort HEart: Irrg Abd Obese Skin: Erythema rash, no pupulars bilateral arms and LLE Ext: R Amputation Neuro: Non-focal Mood Calm Results CBC & Chem 7: 06/28/19 05:34 06/28/19 11:46 Labs: Abnormal Lab Results - Last 24 Hours (Table) 06/24/19 06/28/19 06/28/19 Range/Units 09:43 05:34 11:23 WBC 31.8 H (3.8-10.6) k/uL RBC 2.46 L (3.80-5.40) m/uL Hgb 7.3 L (11.4-16.0) gm/dL Hct 23.7 L (34.0-46.0) % MCHC 30.9 L (31.0-37.0) g/dL RDW 17.5 H (11.5-15.5) % Plt Count 642 H (150-450) k/uL PT (9.0-12.0) sec INR (<1.2) APTT (22.0-30.0) sec Chloride (98-107) mmol/L BUN (7-17) mg/dL Glucose (74-99) mg/dL Total Bilirubin (0.2-1.3) mg/dL AST (14-36) U/L ALT (4-34) U/L Alkaline Phosphatase (38-126) U/L Lactate Dehydrogenase (313-618) U/L Total Protein (6.3-8.2) g/dL Albumin (3.5-5.0) g/dL Urine Appearance Turbid H (Clear) Ur Specific Manly 1.042 H (1.001-1.035) Urine Protein 1+ H (Negative) Urine Blood Moderate H (Negative) Ur Leukocyte Esterase Large H (Negative) Urine RBC 20 H (0-5) /hpf Urine WBC 74 H (0-5) /hpf Urine WBC Clumps Many H (None) /hpf Ur Squamous Epith Cells 7 H (0-4) /hpf Urine Bacteria Occasional H (None) /hpf Urine Mucus Rare H (None) /hpf Crossmatch See Detail 06/28/19 06/28/19 Range/Units 11:46 11:46 WBC (3.8-10.6) k/uL RBC (3.80-5.40) m/uL Hgb (11.4-16.0) gm/dL Hct (34.0-46.0) % MCHC (31.0-37.0) g/dL RDW (11.5-15.5) % Plt Count (150-450) k/uL PT 57.7 H (9.0-12.0) sec INR 5.7 H* (<1.2) APTT 33.9 H (22.0-30.0) sec Chloride 115 H (98-107) mmol/L BUN 21 H (7-17) mg/dL Glucose 127 H (74-99) mg/dL Total Bilirubin 1.5 H (0.2-1.3) mg/dL AST 53 H (14-36) U/L ALT 47 H (4-34) U/L Alkaline Phosphatase 202 H (38-126) U/L Lactate Dehydrogenase 646 H (313-618) U/L Total Protein 5.2 L (6.3-8.2) g/dL Albumin 2.2 L (3.5-5.0) g/dL Urine Appearance (Clear) Ur Specific Manly (1.001-1.035) Urine Protein (Negative) Urine Blood (Negative) Ur Leukocyte Esterase (Negative) Urine RBC (0-5) /hpf Urine WBC (0-5) /hpf Urine WBC Clumps (None) /hpf Ur Squamous Epith Cells (0-4) /hpf Urine Bacteria (None) /hpf Urine Mucus (None) /hpf Crossmatch Microbiology - Last 24 Hours (Table) 06/27/19 10:33 Blood Culture - Preliminary Blood No Growth after 24 hours 06/25/19 07:12 Blood Culture - Preliminary Blood No Growth after 72 hours 06/22/19 13:17 Blood Culture - Preliminary Blood No Growth after 120 hours Assessment and Plan Plan: Assessment and Recommendations: Normocytic Anemia: - Acute on CHronic - Multifactoral - Baseline - - Acute blood loss from recent fall and possible exacerbated by inflammation - Full work up ordered - Per Neurology AC therapy on hold - Transfuse less than 7 Thrombocytopsis: Reactive HX: PE/DVT: - AC held per Neuro Leukocytosis: Likely reactive - Febrile with positive UTI - COVID neg Thank you for allowig us to participate will continue to follow
[2019-06-28] MEDS ORDERED: PHYTONADIONE ORAL 5 MG/5 ML ORAL.SYRG PO STA (14:37)
--- NOTE | 2019-06-28 15:00 | P.PN ---
Subjective Progress Note Date: 06/28/19 Maria Teresa Celeste is a 73-year-old female resident of [facility] the [facility] who sustained a fall with head trauma on 06/18/2019 at that time she was sent to emergency room and had a computed tomography scan of the brain and the cervical spine without contrast, she had evidence of a large frontal scalp hematoma and right periorbital hematoma but no intracranial bleeding, she was sent back to [facility] the [facility]. On 06/22/2019 patient was noticed to have worsening mental status was more somnolence and less responsiveness by the nursing staff she was sent back to emergency room repeat computed tomography scan of the brain revealed evidence of minimal subarachnoid hemorrhage and possible intraparenchymal hemorrhage in the right periventricular white matter. Possibility of transferring patient to a tertiary care center was discussed in details in the emergency room, however due to the fact that trauma happened several days ago, and due to the fact that there is an epidemic of Covid 19 infection which is making it very difficult to transfer patient to [facility], and due to patient age and comorbidities which makes intracranial intervention exceedingly difficult, decision was made not to proceed with transferring patient, her son, (and current power of assistant district attorney since her earlier this month) who was in the emergency room was in agreement of this decision. Patient was admitted to telemetry floor and neurology consultation was requested. Patient has a known history of DVT and PE, she was maintained on aspirin and Coumadin, these medications are now on hold. Patient also had evidence of urinary tract infection with sepsis as evidenced by temperature of 102.1 and leukocytosis white blood count was 14.0 and tachycardia was heart rate of 123 Patient will be given a fluid bolus lactic acid level was ordered but not resulted yet, she was given a dose of IV Rocephin in the emergency room Infectious disease consultation was requested, Covid 19 testing will be done due to elevated temperature On 06/23/2019 patient was seen and examined on the medical floor she is somnolent and responsive she answers questions briefly but goes back to sleep she is denying any pain or discomfort at this time she is denying shortness of breath or cough she is still having spikes of temperature to 102.4 neurology input reviewed will restart Coumadin tomorrow. On 06/24/2019 patient was seen and examined on the medical floor she is more alert and responsive today, white blood count is up to 15.4 hemoglobin 6.0 at this time Coumadin will be held again she will receive 1 unit of red blood cell transfusion then recheck CBC. Covid 19 testing is still pending patient is still having spikes of temperature or fever this morning was 100.7 she still has tachycardia and low oxygen saturation of 89% on room air On 06/25/2019 patient was seen and examined on the medical floor she is somnolent opens eyes and responsive to stimuli and answers few questions with yes or no" since her eyes again she is still having some fever liver enzymes are more elevated today, white blood count is improving, she is still maintained on IV antibiotic for urinary tract infection albumin level is lower at 2.7 patient has poor oral intake On 06/26/2019 patient was seen and examined on the medical floor she is more alert and responsive today she is answering questions appropriately there is no fever or chills no headache or dizziness no chest pain or shortness of breath no cough no nausea or vomiting no abdominal pain no diarrhea and no urinary symptoms. On 06/27/2019 patient was seen and examined on the medical floor she is alert responsive to stimuli and answers few questions and closes her eyes there is no fever or chills no headache or dizziness no chest pain no shortness of breath no cough, no nausea or vomiting no abdominal pain no diarrhea no burning was urination no frequency or urgency and no hematuria, white blood count is increasing up to 32.9 patient is maintained on Zosyn and vancomycin, infectious disease following On 06/28/2019 A shouldn't was seen and examined on the medical floor she is alert responsive in no apparent distress there is no fever or chills no headache or dizziness no chest pain no shortness of breath no cough no nausea or vomiting no abdominal pain no diarrhea and no urinary symptoms she is complaining of left lower extremity pain white blood count is still significantly elevated at 31 INR is elevated at 5.7 patient is not on any Coumadin at this time a dose of vitamin K orally will be given Objective - Vital Signs Vital signs: Vital Signs Temp 99.3 F 06/28/19 12:00 Pulse 104 H 06/28/19 12:00 Resp 28 H 06/28/19 12:00 BP 132/66 06/28/19 12:00 Pulse Ox 99 06/28/19 12:00 Intake & Output 06/27/19 06/28/19 06/28/19 18:59 06:59 18:59 Intake Total 630 90 Output Total 0 Balance 630 90 Weight 108.5 kg Intake: Oral 320 90 Blood Product 310 Rc Pheresis 2 As3 Unit 310 [id number] Output: Urine 0 Other: Voiding Method Diaper Diaper Diaper Incontinent Incontinent Incontinent # Voids 1 1 1 # Bowel Movements 0 - Exam In general patient is somnolent responsive answering questions by yes or no and quickly goes back to closing her eyes HEENT with significant trauma and hematoma to the face Neck is supple no JVD no goiter no lymphadenopathy Chest exam reveals a few scattered rhonchi no wheezing Cardiac exam reveals regular heart sounds S1 and S2 with tachycardia no gallops no murmurs Abdomen is soft nontender no organomegaly with normal bowel sounds Extremity exam reveals right above-knee amputation and left was 2+ edema Neurological examination mental status as above otherwise no focal neurological deficit at this time - Labs CBC & Chem 7: 06/28/19 05:34 06/28/19 11:46 Labs: Abnormal Lab Results - Last 24 Hours (Table) 06/24/19 06/28/19 06/28/19 Range/Units 09:43 05:34 11:46 WBC 31.8 H (3.8-10.6) k/uL RBC 2.46 L (3.80-5.40) m/uL Hgb 7.3 L (11.4-16.0) gm/dL Hct 23.7 L (34.0-46.0) % MCHC 30.9 L (31.0-37.0) g/dL RDW 17.5 H (11.5-15.5) % Plt Count 642 H (150-450) k/uL Chloride 115 H (98-107) mmol/L BUN 21 H (7-17) mg/dL Glucose 127 H (74-99) mg/dL Total Bilirubin 1.5 H (0.2-1.3) mg/dL AST 53 H (14-36) U/L ALT 47 H (4-34) U/L Alkaline Phosphatase 202 H (38-126) U/L Lactate Dehydrogenase 646 H (313-618) U/L Total Protein 5.2 L (6.3-8.2) g/dL Albumin 2.2 L (3.5-5.0) g/dL Crossmatch See Detail Microbiology - Last 24 Hours (Table) 06/27/19 10:33 Blood Culture - Preliminary Blood No Growth after 24 hours 06/25/19 07:12 Blood Culture - Preliminary Blood No Growth after 72 hours 06/22/19 13:17 Blood Culture - Preliminary Blood No Growth after 120 hours Assessment and Plan Plan: 1. Recent fall with head trauma 5 days ago with computed tomography scan revealing minimal subarachnoid hemorrhage and possible intra-parenchymal hemorrhage in the right periventricular white matter. At this time aspirin and Coumadin are held, neurology consultation was requested. I have discussed this case in details with her son who is the power of assistant district attorney at this time. Decision at this time is not to transfer patient to a tertiary care center due to the fact that trauma happened 5 days ago and due to current conditions with Covid 19 epidemic. Son is in agreement not to transfer patient. 2. Urinary tract infection with sepsis, urine culture and blood cultures requested, patient started on IV Rocephin, infectious disease consultation requested 3. Mental status changes, due to metabolic encephalopathy related to sepsis, and possibly to intracranial bleeding, will monitor closely 4. Underlying history of hypertention, home blood pressure medication are resumed will monitor 5. Tachycardia, will give fluid bolus 250 mL and reassess medications including metoprolol were resumed 6. Febrile illness was temperature of 102, could be related to urinary tract infection however will check Covid 19 Will consult infectious disease 7. 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 8. Previous history of DVT and PE maintained on Coumadin at this time Coumadin is on hold Will resume when advised by neurology 9. Underlying history of anemia. At this time patient is admitted to telemetry floor, she is started on IV fluid and IV antibiotics Neurology consultation and infectious disease consultation are requested Coumadin and aspirin are on hold At this time patient remains a full code which will be discussed further with her son Will add pulmonary and critical care consult Prognosis is guarded
[2019-06-28] MEDS: DAPTOmycin 500 MG in SODIUM CHLORIDE 0.9% 50 ML IVPB SCH (16:35)
--- NOTE | 2019-06-28 17:04 | PN ---
PROGRESS NOTE DATE OF SERVICE: 06/28/2019 REASON FOR FOLLOWUP: Pneumonia and persistent elevated white count. INTERVAL HISTORY: The patient has been running a low-grade fever of 100.7 this morning, axillary. Patient is hemodynamically stable. She is still slightly lethargic, but did answer some simple questions. No vomiting or diarrhea has been reported. Patient denies any symptoms at this point. PHYSICAL EXAMINATION: Blood pressure is 115/55 with a pulse of 99, temperature of 98, she is 98% on 2 L nasal cannula. General description is the an elderly female, up in the bed in no distress. RESPIRATORY SYSTEM: Unlabored breathing, decreased breath sounds, no wheeze. HEART: S1, S2. Regular rate and rhythm. ABDOMEN: Soft, no tenderness. LABS: Hemoglobin 7.8, white count 31.8. BUN of 21, creatinine 0.78. Liver enzymes remain to be mildly elevated. Repeat UA was positive. DIAGNOSTIC IMPRESSION AND PLAN: Patient in the hospital with a fever with initial concern for UTI, urine has been desensitive to E coli. Since there is significant persistent fever and elevated white count. She did have extensive workup including CT abdominal, pelvis that has been pointing towards the pneumonia. 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 We will discontinue the vancomycin, add daptomycin and see clinical response. We cannot use Zyvox because of the SSRI the patient is on and will monitor clinical course closely. MMODL / IJN: [id number] /
[2019-06-28 18:20] LABS: Reticulocyte % 6.89 % (0.10-1.80)
[2019-06-28 19:10] LABS: Protein, Total 4.8 g/dL (6.2-8.2)
[2019-06-28 19:42] LABS: % Iron Saturation 8.95 (12.00-45.00); Ferritin 451.2 ng/mL (10.0-291.0); Folate, Serum 20.9 ng/mL
[2019-06-28] MEDS ORDERED: VANCOMYCIN TROUGH DUE 1 EACH MISC MISCELLANE ONE (22:00)
[2019-06-28] MEDS: ALLOPURINOL 300 MG TAB PO SCH (22:07)
[2019-06-28] MEDS: FOLIC ACID 1 MG TAB PO SCH (22:07)
[2019-06-28] MEDS: MULTIVITAMINS, THERA 1 EACH TAB PO SCH (22:08)
[2019-06-29] MEDS: ACETAMINOPHEN TAB 500 MG TAB PO PRN ×2 (04:19→19:42)
[2019-06-29] MEDS: PANTOPRAZOLE 40 MG TABLET PO SCH (04:19)
[2019-06-29] MEDS: SODIUM CHLORIDE 0.9% 1,000 ML IV SCH ×2 (04:36→16:31)
[2019-06-29 07:47] LABS: Anisocytosis Slight; Basophils # (A) 0.1 k/uL (0-0.2); Basophils % (A) 0 %; Eosinophils # (A) 0.5 k/uL (0-0.7); Eosinophils % (A) 2 %; HCT 20.6 % (34.0-46.0); Hypochromasia Marked; Lymphocytes # (A) 1.1 k/uL (1.0-4.8); Lymphocytes % (A) 4 %; MCH 29.6 pg (25.0-35.0); MCHC 30.2 g/dL (31.0-37.0); MCV 97.9 fL (80.0-100.0); Macrocytosis Slight; Mean Platelet Volume 7.8; Monocytes # (A) 0.6 k/uL (0-1.0); Monocytes % (A) 2 %; Neutrophils # (A) 25.5 k/uL (1.3-7.7); Neutrophils % (A) 91 %; Platelet Count 821 k/uL (150-450); Poikilocytosis Slight; RDW 17.1 % (11.5-15.5); WBC 28.1 k/uL (3.8-10.6)
[2019-06-29 07:58] LABS: HGB 6.2 gm/dL (11.4-16.0)
[2019-06-29 08:09] LABS: INR 2.6 (<1.2); Prothrombin Time 25.6 sec (9.0-12.0)
[2019-06-29 08:15] LABS: ALT 40 U/L (4-34); AST 51 U/L (14-36); African American GFR (CKD) >90 (>60 ml/min/1.73 sqM); Alkaline Phosphatase 178 U/L (38-126); Anion Gap 3 mmol/L; Blood Urea Nitrogen 21 mg/dL (7-17); Calcium 8.9 mg/dL (8.4-10.2); Carbon Dioxide 23 mmol/L (22-30); Chloride 115 mmol/L (98-107); Glucose 104 mg/dL (74-99); Non-African American GFR(CKD) 84 (>60 ml/min/1.73 sqM); Potassium 4.4 mmol/L (3.5-5.1); Sodium 141 mmol/L (137-145); Total Bilirubin 1.9 mg/dL (0.2-1.3); Total Protein 4.8 g/dL (6.3-8.2)
[2019-06-29] MEDS: PARoxetine 10 MG TAB PO SCH ×2 (09:03→16:31)
[2019-06-29] MEDS: CYANOCOBALAMIN 500 MCG TAB PO SCH (09:03)
[2019-06-29] MEDS: CALCIUM CARB-VIT D 500MG-200UN 1 EACH TAB PO SCH ×2 (09:03→19:42)
[2019-06-29] MEDS: METOPROLOL SUCCINATE (ER) 50 MG TAB.ER.24H PO SCH (09:03)
[2019-06-29] MEDS: LISINOPRIL 20 MG TAB PO SCH ×2 (09:03→16:31)
[2019-06-29] MEDS: MAGNESIUM OXIDE 400 MG TAB PO SCH ×2 (09:03→19:43)
[2019-06-29] MEDS: ISOSORBIDE MONONITRATE ER 30 MG TAB.ER.24H PO SCH (09:03)
[2019-06-29] MEDS: PIPERACILLIN-TAZOBACTAM 3.375 GM in SODIUM CHLORIDE 0.9% 100 ML IVPB SCH ×3 (09:04→22:44)
[2019-06-29] MEDS: FERROUS SULFATE 325 MG TAB PO SCH (09:04)
[2019-06-29] MEDS: POTASSIUM CHLORIDE ER 20 MEQ TAB.ER PO SCH (09:04)
[2019-06-29] MEDS: PYRIDOXINE 50 MG TAB PO SCH (09:05)
[2019-06-29 09:52] LABS: Free Kappa Lt Chain Qnt, Serum 4.02 mg/dL (0.33-1.94)
[2019-06-29 11:19] LABS: Immunoglobulin M 38.2 mg/dL (40.0-280.0)
--- NOTE | 2019-06-29 12:18 | CONS ---
CONSULTATION DATE OF DICTATION: June 29, 2019 REASON FOR CONSULTATION: Elevated LFTs. HISTORY OF PRESENT ILLNESS: The patient is a 73-year-old, pleasant, white female who is a resident of [facility] who was initially admitted to the hospital about a week ago when she presented with acute fall with a frontal hematoma. At the time of admission to the hospital, she had some altered mental status and fever, and she was tested for COVID that was negative. Subsequently, was diagnosed with a UTI and on broad spectrum antibiotics. While in the hospital, she was noted to have mild elevation of serum transaminases. In fact at the time of admission to the hospital, serum transaminases have been completely within normal limits, however, bilirubin was 2. Initially for UTI, she was started on Rocephin for two days. That was discontinued and she was started on Invanz. Two days later, that was discontinued and currently, she is on Zosyn and vancomycin. During this time, her serum transaminases continue to slowly get worse in the range of 100s and 200s. Bilirubin remains about the same. The patient is a very poor historian. She says that it is hard for her talk at this point. She, however, denies any history of chronic liver disease. She does have history of DVT and PE and has been on Coumadin and even during the hospitalization, she dropped her hemoglobin a couple of times requiring two units of blood transfusion. Today, hemoglobin is 6.8. As per the nursing staff, she has no evidence of active bleeding, no melena. She does complain of some vague abdominal discomfort but no nausea or vomiting. PAST MEDICAL HISTORY: Her past medical history is significant for DVT and PE, history of GERD, hypertension, hyperlipidemia, mild dementia, chronic kidney disease, right above-knee amputation in January of 2019. She received temporary dialysis in January of 2019. PAST SURGICAL HISTORY: Hysterectomy, tubal ligation, sternal mastoidectomy, right shoulder surgery, knee arthroscopy, bilateral cataract surgery, EGD/colonoscopy in the past, right AKA. FAMILY HISTORY: Brother has congestive heart failure, had CABG. Father has congestive heart failure, hypertension, hyperlipidemia. Mother has congestive heart failure, CVA. MEDICATIONS: Her medications at home include Imdur, Pravachol, Paxil, calcium, Ativan, Zofran, Artificial Tears, feosol, folic acid, Zestril, Imodium, Calmoseptine, Toprol, Coumadin, Valium, Protonix, allopurinol, and multivitamin. ALLERGIES: ADHESIVE TAPE, TEGRETOL, SOMA, DOXYCYCLINE, ERYTHROMYCIN, VICODIN, NSAIDS, FELDENE, CIPRO, WHEAT, VIBRAMYCIN. REVIEW OF SYSTEMS: The patient is an extremely poor historian and would not answer to most of the questions. PHYSICAL EXAMINATION: On physical examination, she is lying in bed, very quiet, not talking much. VITAL SIGNS: Blood pressure 124/73, pulse rate 98, temperature 97.7. HEENT: Examination unremarkable. Conjunctivae pink. Sclerae anicteric. There is a medium-sized frontal hematoma noted. CHEST: Clear to auscultation. HEART: Regular rate and rhythm. ABDOMEN: Obese. There was mild tenderness in the epigastric area and in the periumbilical area but it was very soft, nondistended. EXTREMITIES: No pedal edema. SKIN: No rashes. NEUROLOGIC: Alert and oriented x3. No focal deficits. LABS: Upon admission to the hospital, serum AST was 29 and today it is 51, two days ago it was 110. Serum ALT at admission was 12 and today it is 40. T-bilirubin was 2 upon admission to the hospital and today it is 1.9. Alkaline phosphatase was 114 at admission and today is 178. WBC 28.1, hemoglobin 6.2, platelets 821. INR is 2.6. Basic metabolic panel is within normal limits. BUN is 21, creatinine 0.76. Serum iron 17, TIBC 190, iron saturation 8%, and ferritin is 4.51. Urinalysis showed large leukocyte esterase. IMPRESSION: 1. Urinary tract infection/leukocytosis. Dr. Carr following the patient closely. She is presently on Zosyn and vancomycin. Continues to have low-grade fevers and today the vancomycin was discontinued and daptomycin was added. 2. Mild elevation of serum transaminases in this lady who presented with normal liver enzymes at the time of admission to the hospital. Most likely, we are dealing with possibly medication-induced hepatitis as the most likely etiology. There is no history of chronic liver disease. Her serum transaminases appeared to have increased and now slowly improving. 3. Anemia but no evidence of active bleeding. Hematology is following the patient who believed that anemia is related to chronic disease. She is going to receive one unit of PRBC transfusion today. 4. History of dementia with mild altered mental status. 5. History of deep venous thrombosis and pulmonary embolus, on Coumadin. PT/INR were drawn yesterday and it is currently on hold. 6. Small subarachnoid hemorrhage and frontal hematoma from recent fall. RECOMMENDATIONS: 1. In regards to the LFTs, we will continue to watch them closely since they are already improving. 2. Will obtain hepatitis viral serologies for A, B, and C. 3. Continue with current management. 4. Continue current antibiotics and will follow with you closely. Thank you for this consultation. MMODL / IJN: [id number] /
--- NOTE | 2019-06-29 13:13 | P.PN ---
Subjective Progress Note Date: 06/29/19 Maria Teresa Celeste is a 73-year-old female resident of [facility] on the [facility] who sustained a fall with head trauma on 06/18/2019 at that time she was sent to emergency room and had a computed tomography scan of the brain and the cervical spine without contrast, she had evidence of a large frontal scalp hematoma and right periorbital hematoma but no intracranial bleeding, she was sent back to [facility] on the [facility]. On 06/22/2019 patient was noticed to have worsening mental status was more somnolence and less responsiveness by the nursing staff she was sent back to emergency room repeat computed tomography scan of the brain revealed evidence of minimal subarachnoid hemorrhage and possible intraparenchymal hemorrhage in the right periventricular white matter. Possibility of transferring patient to a tertiary care center was discussed in details in the emergency room, however due to the fact that trauma happened several days ago, and due to the fact that there is an epidemic of Covid 19 infection which is making it very difficult to transfer patient to [facility], and due to patient age and comorbidities which makes intracranial intervention exceedingly difficult, decision was made not to proceed with transferring patient, her son, (and current power of deputy attorney general since her earlier this month) who was in the emergency room was in agreement of this decision. Patient was admitted to telemetry floor and neurology consultation was requested. Patient has a known history of DVT and PE, she was maintained on aspirin and Coumadin, these medications are now on hold. Patient also had evidence of urinary tract infection with sepsis as evidenced by temperature of 102.1 and leukocytosis white blood count was 14.0 and tachycardia was heart rate of 123 Patient will be given a fluid bolus lactic acid level was ordered but not resulted yet, she was given a dose of IV Rocephin in the emergency room Infectious disease consultation was requested, Covid 19 testing will be done due to elevated temperature On 06/23/2019 patient was seen and examined on the medical floor she is somnolent and responsive she answers questions briefly but goes back to sleep she is denying any pain or discomfort at this time she is denying shortness of breath or cough she is still having spikes of temperature to 102.4 neurology input reviewed will restart Coumadin tomorrow. On 06/24/2019 patient was seen and examined on the medical floor she is more alert and responsive today, white blood count is up to 15.4 hemoglobin 6.0 at this time Coumadin will be held again she will receive 1 unit of red blood cell transfusion then recheck CBC. Covid 19 testing is still pending patient is still having spikes of temperature or fever this morning was 100.7 she still has tachycardia and low oxygen saturation of 89% on room air On 06/25/2019 patient was seen and examined on the medical floor she is somnolent opens eyes and responsive to stimuli and answers few questions with yes or no" since her eyes again she is still having some fever liver enzymes are more elevated today, white blood count is improving, she is still maintained on IV antibiotic for urinary tract infection albumin level is lower at 2.7 patient has poor oral intake On 06/26/2019 patient was seen and examined on the medical floor she is more alert and responsive today she is answering questions appropriately there is no fever or chills no headache or dizziness no chest pain or shortness of breath no cough no nausea or vomiting no abdominal pain no diarrhea and no urinary symptoms. On 06/27/2019 patient was seen and examined on the medical floor she is alert responsive to stimuli and answers few questions and closes her eyes there is no fever or chills no headache or dizziness no chest pain no shortness of breath no cough, no nausea or vomiting no abdominal pain no diarrhea no burning was urination no frequency or urgency and no hematuria, white blood count is increasing up to 32.9 patient is maintained on Zosyn and vancomycin, infectious disease following On 06/28/2019 A shouldn't was seen and examined on the medical floor she is alert responsive in no apparent distress there is no fever or chills no headache or dizziness no chest pain no shortness of breath no cough no nausea or vomiting no abdominal pain no diarrhea and no urinary symptoms she is complaining of left lower extremity pain white blood count is still significantly elevated at 31 INR is elevated at 5.7 patient is not on any Coumadin at this time a dose of vitamin K orally will be given On 06/29/2019 patient was seen and examined on the medical floor she is more alert today however she is confused there is no fever or chills no headache or dizziness no chest pain no shortness of breath no cough no nausea or vomiting no abdominal pain no diarrhea and no urinary symptoms, hemoglobin today is down to 6.21 unit of red blood cell transfusion was ordered INR is 2.6 patient is not on any Coumadin she received vitamin K yesterday Objective - Vital Signs Vital signs: Vital Signs Temp 98.2 F 06/29/19 12:44 Pulse 92 06/29/19 12:44 Resp 18 06/29/19 12:44 BP 137/72 06/29/19 12:44 Pulse Ox 99 06/29/19 05:12 Intake & Output 06/28/19 06/29/19 06/29/19 18:59 06:59 18:59 Intake Total 270 60 0 Output Total 200 475 Balance 70 -415 0 Weight 108.5 kg 109.5 kg Intake: Oral 270 60 Blood Product 0 Rc Pheresis As-3 Unit 0 [id number] Output: Urine 200 475 Other: Voiding Method Indwelling Catheter Indwelling Catheter Indwelling Catheter # Voids 0 - Exam In general patient is somnolent responsive answering questions by yes or no and quickly goes back to closing her eyes HEENT with significant trauma and hematoma to the face Neck is supple no JVD no goiter no lymphadenopathy Chest exam reveals a few scattered rhonchi no wheezing Cardiac exam reveals regular heart sounds S1 and S2 with tachycardia no gallops no murmurs Abdomen is soft nontender no organomegaly with normal bowel sounds Extremity exam reveals right above-knee amputation and left was 2+ edema Neurological examination mental status as above otherwise no focal neurological deficit at this time - Labs CBC & Chem 7: 06/29/19 07:27 06/29/19 07:27 Labs: Abnormal Lab Results - Last 24 Hours (Table) 06/28/19 06/28/19 06/28/19 Range/Units 11:23 11:46 11:46 WBC (3.8-10.6) k/uL RBC (3.80-5.40) m/uL Hgb (11.4-16.0) gm/dL Hct (34.0-46.0) % MCHC (31.0-37.0) g/dL RDW (11.5-15.5) % Plt Count (150-450) k/uL Neutrophils # (1.3-7.7) k/uL Retic Count 6.89 H (0.10-1.80) % Haptoglobin (31.2-198.0) mg/dL PT (9.0-12.0) sec INR (<1.2) Chloride (98-107) mmol/L BUN (7-17) mg/dL Glucose (74-99) mg/dL Iron 17 L (50-170) ug/dL TIBC 190 L (228-460) ug/dL % Saturation 8.95 L (12.00-45.00) Ferritin 451.2 H (10.0-291.0) ng/mL Total Bilirubin (0.2-1.3) mg/dL AST (14-36) U/L ALT (4-34) U/L Alkaline Phosphatase (38-126) U/L Total Protein (6.3-8.2) g/dL Total Protein (PEP) (6.2-8.2) g/dL Albumin (3.5-5.0) g/dL Urine Appearance Turbid H (Clear) Ur Specific [place] 1.042 H (1.001-1.035) Urine Protein 1+ H (Negative) Urine Blood Moderate H (Negative) Ur Leukocyte Esterase Large H (Negative) Urine RBC 20 H (0-5) /hpf Urine WBC 74 H (0-5) /hpf Urine WBC Clumps Many H (None) /hpf Ur Squamous Epith Cells 7 H (0-4) /hpf Urine Bacteria Occasional H (None) /hpf Urine Mucus Rare H (None) /hpf IgM (40.0-280.0) mg/dL Free [place] LC, Quant (0.33-1.94) mg/dL Free Lambda LC, Quant (0.57-2.63) mg/dL Crossmatch 06/28/19 06/28/19 06/28/19 Range/Units 11:46 11:46 11:46 WBC (3.8-10.6) k/uL RBC (3.80-5.40) m/uL Hgb (11.4-16.0) gm/dL Hct (34.0-46.0) % MCHC (31.0-37.0) g/dL RDW (11.5-15.5) % Plt Count (150-450) k/uL Neutrophils # (1.3-7.7) k/uL Retic Count (0.10-1.80) % Haptoglobin 211.0 H (31.2-198.0) mg/dL PT (9.0-12.0) sec INR (<1.2) Chloride (98-107) mmol/L BUN (7-17) mg/dL Glucose (74-99) mg/dL Iron (50-170) ug/dL TIBC (228-460) ug/dL % Saturation (12.00-45.00) Ferritin (10.0-291.0) ng/mL Total Bilirubin (0.2-1.3) mg/dL AST (14-36) U/L ALT (4-34) U/L Alkaline Phosphatase (38-126) U/L Total Protein (6.3-8.2) g/dL Total Protein (PEP) 4.8 L (6.2-8.2) g/dL Albumin (3.5-5.0) g/dL Urine Appearance (Clear) Ur Specific [place] (1.001-1.035) Urine Protein (Negative) Urine Blood (Negative) Ur Leukocyte Esterase (Negative) Urine RBC (0-5) /hpf Urine WBC (0-5) /hpf Urine WBC Clumps (None) /hpf Ur Squamous Epith Cells (0-4) /hpf Urine Bacteria (None) /hpf Urine Mucus (None) /hpf IgM 38.2 L (40.0-280.0) mg/dL Free [place] LC, Quant 4.02 H (0.33-1.94) mg/dL Free Lambda LC, Quant 4.22 H (0.57-2.63) mg/dL Crossmatch 06/29/19 06/29/19 06/29/19 Range/Units 07:27 07:27 07:27 WBC 28.1 H (3.8-10.6) k/uL RBC 2.10 L (3.80-5.40) m/uL Hgb 6.2 L* (11.4-16.0) gm/dL Hct 20.6 L (34.0-46.0) % MCHC 30.2 L (31.0-37.0) g/dL RDW 17.1 H (11.5-15.5) % Plt Count 821 H (150-450) k/uL Neutrophils # 25.5 H (1.3-7.7) k/uL Retic Count (0.10-1.80) % Haptoglobin (31.2-198.0) mg/dL PT 25.6 H (9.0-12.0) sec INR 2.6 H (<1.2) Chloride 115 H (98-107) mmol/L BUN 21 H (7-17) mg/dL Glucose 104 H (74-99) mg/dL Iron (50-170) ug/dL TIBC (228-460) ug/dL % Saturation (12.00-45.00) Ferritin (10.0-291.0) ng/mL Total Bilirubin 1.9 H (0.2-1.3) mg/dL AST 51 H (14-36) U/L ALT 40 H (4-34) U/L Alkaline Phosphatase 178 H (38-126) U/L Total Protein 4.8 L (6.3-8.2) g/dL Total Protein (PEP) (6.2-8.2) g/dL Albumin 2.0 L (3.5-5.0) g/dL Urine Appearance (Clear) Ur Specific [place] (1.001-1.035) Urine Protein (Negative) Urine Blood (Negative) Ur Leukocyte Esterase (Negative) Urine RBC (0-5) /hpf Urine WBC (0-5) /hpf Urine WBC Clumps (None) /hpf Ur Squamous Epith Cells (0-4) /hpf Urine Bacteria (None) /hpf Urine Mucus (None) /hpf IgM (40.0-280.0) mg/dL Free [place] LC, Quant (0.33-1.94) mg/dL Free Lambda LC, Quant (0.57-2.63) mg/dL Crossmatch 06/29/19 Range/Units 09:53 WBC (3.8-10.6) k/uL RBC (3.80-5.40) m/uL Hgb (11.4-16.0) gm/dL Hct (34.0-46.0) % MCHC (31.0-37.0) g/dL RDW (11.5-15.5) % Plt Count (150-450) k/uL Neutrophils # (1.3-7.7) k/uL Retic Count (0.10-1.80) % Haptoglobin (31.2-198.0) mg/dL PT (9.0-12.0) sec INR (<1.2) Chloride (98-107) mmol/L BUN (7-17) mg/dL Glucose (74-99) mg/dL Iron (50-170) ug/dL TIBC (228-460) ug/dL % Saturation (12.00-45.00) Ferritin (10.0-291.0) ng/mL Total Bilirubin (0.2-1.3) mg/dL AST (14-36) U/L ALT (4-34) U/L Alkaline Phosphatase (38-126) U/L Total Protein (6.3-8.2) g/dL Total Protein (PEP) (6.2-8.2) g/dL Albumin (3.5-5.0) g/dL Urine Appearance (Clear) Ur Specific [place] (1.001-1.035) Urine Protein (Negative) Urine Blood (Negative) Ur Leukocyte Esterase (Negative) Urine RBC (0-5) /hpf Urine WBC (0-5) /hpf Urine WBC Clumps (None) /hpf Ur Squamous Epith Cells (0-4) /hpf Urine Bacteria (None) /hpf Urine Mucus (None) /hpf IgM (40.0-280.0) mg/dL Free [place] LC, Quant (0.33-1.94) mg/dL Free Lambda LC, Quant (0.57-2.63) mg/dL Crossmatch See Detail Microbiology - Last 24 Hours (Table) 06/27/19 10:33 Blood Culture - Preliminary Blood No Growth after 48 hours 06/25/19 07:12 Blood Culture - Preliminary Blood No Growth after 96 hours 06/28/19 11:23 Urine Culture - Preliminary Urine,Catheterized 06/22/19 13:17 Blood Culture - Final Blood No Growth after 144 hours Assessment and Plan Plan: 1. Recent fall with head trauma 5 days ago with computed tomography scan revealing minimal subarachnoid hemorrhage and possible intra-parenchymal hemorrhage in the right periventricular white matter. At this time aspirin and Coumadin are held, neurology consultation was requested. I have discussed this case in details with her son who is the power of deputy attorney general at this time. Decision at this time is not to transfer patient to a tertiary care center due to the fact that trauma happened 5 days ago and due to current conditions with Covid 19 epidemic. Son is in agreement not to transfer patient. 2. Urinary tract infection with sepsis, urine culture and blood cultures requested, patient started on IV Rocephin, infectious disease consultation requested 3. Mental status changes, due to metabolic encephalopathy related to sepsis, and possibly to intracranial bleeding, will monitor closely 4. Underlying history of hypertention, home blood pressure medication are resumed will monitor 5. Tachycardia, will give fluid bolus 250 mL and reassess medications including metoprolol were resumed 6. Febrile illness was temperature of 102, could be related to urinary tract infection however will check Covid 19 Will consult infectious disease 7. 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 8. Previous history of DVT and PE maintained on Coumadin at this time Coumadin is on hold Will resume when advised by neurology 9. Underlying history of anemia. With worsening anemia during this admission requiring multiple red blood cell transfusion, most likely due to acute bleeding, gastroenterology and hematology are following At this time patient is admitted to telemetry floor, she is started on IV fluid and IV antibiotics Neurology consultation and infectious disease consultation are requested Coumadin and aspirin are on hold, patient received vitamin K 2.5 mg by mouth yesterday we will continue to hold Coumadin At this time patient remains a full code which will be discussed further with her son Will add pulmonary and critical care consult Prognosis is guarded
--- NOTE | 2019-06-29 13:16 | P.PN ---
Subjective Progress Note Date: 06/29/19 Principal diagnosis: On 06/26/2019 patient seen in follow-up on selective care unit. She ruled out for Covid 19. Patient is confused, but she opens eyes to voice and verbal and tactile stimulation, her speech times is incomprehensible, does not appear to be in any acute respiratory distress, she is on 2 L of oxygen with a pulse ox of 96%, hemodynamically stable, she is afebrile. She has a large right supraorbital hematoma, and she has mild bruising in the periorbital areas of her bilateral face. Patient has been febrile over the last 24 hours, with a T- max of 10 1F. Apparently rapid response team was called last night for concern of fever, increased respiratory rate, and decreased level of consciousness, a CT brain was repeated showing no acute intracranial abnormality, large frontal scalp hematoma, and there was no change compared to previous exam. Vital signs are stable, her blood gas showed pO2 of 110, pCO2 of 40, and pH of 7.43, this was done on FiO2 of 20%, and did not show any abnormality with the ventilation. Today's chest x-ray has been reviewed showing persistent atelectasis in the right lower lobe and/or infiltrate, no significant change. ID service is following, and patient is on antibiotics in the form of Zosyn and vancomycin, urine culture showed E. coli. On 06/27/2019 patient seen in follow-up on selective care unit, she is more leth argic on today's exam, she does arouse to vigorous tactile stimulation, opens eyes briefly, does not maintain eye contact, low-grade fevers today, room air pulse ox is 96-98%, hemodynamically patient is stable, she remains on a combination of Zosyn and vancomycin, urine culture showed E. coli, view of her decreased mentation, and increase in her white blood cell count on today's labs will obtain another set of blood cultures, and the blood gas. No nausea or vomiting, no complaints of abdominal pain, today's hemoglobin is 6.7 with no obvious signs of bleeding, right supraorbital hematoma appears to be unchanged, blood gas was reviewed, showing pO2 of 69, pCO2 of 38, and pH of 7.41, was done on FiO2 of 28%, showing acute hypoxemia requiring supplemental oxygen, but no ventilation abnormality. The rest of the labs have been reviewed showing sodium of 145, potassium is 4.4, Court is 118, CO2 is 21, BUN is 33, creatinine is 1.06. Liver enzymes are relatively stable, Coumadin and aspirin remain on hold. Overall prognosis is extremely guarded, and attending physician will discuss patient's plan of care, and goals of treatment with patient's son who is the guardian On 06/28/2019 patient seen in follow-up on selective care unit, she is resting in bed, she is febrile with a temp of 99.5 axillary, and patient was already given antipyretics, her respirations are tachypneic, however there are no wheezes, or rhonchi, she is on 2 L of oxygen and the pulse ox of 96-99%, hemodynamically patient is stable, slightly tachycardic, tachypneic as mentioned above. Yesterday we send a set of blood cultures and are pending for now. Right [id number] amputation stump wound appears to be clean dry, : Care is being done, ID service is following, patient is on a combination of Zosyn and vancomycin, oral intake has been extremely poor, we will obtain speech evaluation consultation. And is lethargic, but opens eyes to verbal stimulation, she is not following commands, she is not maintaining eye contact, today's labs have been reviewed showing slightly decreased white blood cell, wit h a WBC of 31.8, hemoglobin of 7.3, patient did receive a unit of blood yesterday for hemoglobin of 6.7, and her has been no obvious source of bleeding, platelet 642, INR today is 5.7, sodium is 143, potassium is 4.3, chloride is 1:15, CO2 is 22, BUN is 21, creatinine 0.78, liver enzymes are trending down, LDH remains elevated at 646, and patient was tested negative for cold mid 19, neurology is following, anticoagulation remains on hold On 06/29/2019 patient seen in follow-up on general medical floor. She is much more awake on today's exam, she is looking better, doesn't seem to be in any a cute distress, no evidence of respiratory difficulty, she is on 2 L of oxygen with a pulse ox of 99%, her last episode of fever was yesterday at around 12:00, she's been afebrile since. Her white blood cell count is slightly improved on today's exam, with the white blood cell count is 28.1, hemoglobin is 6.2, with no obvious source of bleeding, INR today is 2.6, sodium is 141, potassium 4.4, chloride is 1:15, B UN is 21, creatinine 0.72, total bilirubin is 1.9, AST is 51, ALT is 40, [place] phosphatase is 178. Patient is on a combination of antibiotics that includes Zosyn and vancomycin, urine culture has been sent, and is pending at this time, follow blood cultures have been negative, yesterday's urinalysis was sent showing evidence of urinary tract infection, with large amount of leukocyte esterase, 74 of white blood cell counts and white blood cell in clumps. Patient is being evaluated by GI service in regards to the LFTs, and she is being managed medically at this point, Dr. Nacho Kulkarni from infectious diseases on, patient denies any abdominal pain, no nausea vomiting, no diarrhea. Breathing seems to be comfortable, lung sounds are clear. Objective - Vital Signs Vital signs: Vital Signs Temp 98.2 F 06/29/19 12:44 Pulse 92 06/29/19 12:44 Resp 18 06/29/19 12:44 BP 137/72 06/29/19 12:44 Pulse Ox 99 06/29/19 05:12 Intake & Output 06/28/19 06/29/19 06/29/19 18:59 06:59 18:59 Intake Total 270 60 0 Output Total 200 475 Balance 70 -415 0 Weight 108.5 kg 109.5 kg Intake: Oral 270 60 Blood Product 0 Rc Pheresis As-3 Unit 0 [id number] Output: Urine 200 475 Other: Voiding Method Indwelling Catheter Indwelling Catheter Indwelling Catheter # Voids 0 - Exam GENERAL EXAM: Alert, 73-year-old white female, confused, tachypneic, afebrile with extensive bruising in the periorbital area, and a large hematoma above the right eye comfortable in no apparent distress. HEAD: Normocephalic/atraumatic. EYES: Normal reaction of pupils, equal size. Conjunctiva pink, sclera white. NOSE: Clear with pink turbinates. THROAT: No erythema or exudates. NECK: No masses, no JVD, no thyroid enlargement, no adenopathy. CHEST: No chest wall deformity. Symmetrical expansion. LUNGS: Equal air entry with no crackles, wheeze, rhonchi or dullness. CVS: Regular rate and rhythm, normal S1 and S2, no gallops, no murmurs, no rubs ABDOMEN: Soft, nontender. No hepatosplenomegaly, normal bowel sounds, no guarding or rigidity. EXTREMITIES: No clubbing, no edema, no cyanosis, 2+ pulses and upper and lower extremities. MUSCULOSKELETAL: Muscle strength and tone normal. Right uxpfp-[id number]-[id number] amputati on, there is a wound on the right stump, and the wound bed is clean, there is a silver dressing on, with no significant exudate SPINE: No scoliosis or deformity SKIN: No rashes CENTRAL NERVOUS SYSTEM: Alert and oriented -0. PSYCHIATRIC: Alert and oriented -0. Patient is confused - Labs CBC & Chem 7: 06/29/19 07:27 06/29/19 07:27 Labs: Abnormal Lab Results - Last 24 Hours (Table) 06/28/19 06/28/19 06/28/19 Range/Units 11:23 11:46 11:46 WBC (3.8-10.6) k/uL RBC (3.80-5.40) m/uL Hgb (11.4-16.0) gm/dL Hct (34.0-46.0) % MCHC (31.0-37.0) g/dL RDW (11.5-15.5) % Plt Count (150-450) k/uL Neutrophils # (1.3-7.7) k/uL Retic Count 6.89 H (0.10-1.80) % Haptoglobin (31.2-198.0) mg/dL PT (9.0-12.0) sec INR (<1.2) Chloride (98-107) mmol/L BUN (7-17) mg/dL Glucose (74-99) mg/dL Iron 17 L (50-170) ug/dL TIBC 190 L (228-460) ug/dL % Saturation 8.95 L (12.00-45.00) Ferritin 451.2 H (10.0-291.0) ng/mL Total Bilirubin (0.2-1.3) mg/dL AST (14-36) U/L ALT (4-34) U/L Alkaline Phosphatase (38-126) U/L Total Protein (6.3-8.2) g/dL Total Protein (PEP) (6.2-8.2) g/dL Albumin (3.5-5.0) g/dL Urine Appearance Turbid H (Clear) Ur Specific [place] 1.042 H (1.001-1.035) Urine Protein 1+ H (Negative) Urine Blood Moderate H (Negative) Ur Leukocyte Esterase Large H (Negative) Urine RBC 20 H (0-5) /hpf Urine WBC 74 H (0-5) /hpf Urine WBC Clumps Many H (None) /hpf Ur Squamous Epith Cells 7 H (0-4) /hpf Urine Bacteria Occasional H (None) /hpf Urine Mucus Rare H (None) /hpf IgM (40.0-280.0) mg/dL Free [place] LC, Quant (0.33-1.94) mg/dL Free Lambda LC, Quant (0.57-2.63) mg/dL Crossmatch 06/28/19 06/28/19 06/28/19 Range/Units 11:46 11:46 11:46 WBC (3.8-10.6) k/uL RBC (3.80-5.40) m/uL Hgb (11.4-16.0) gm/dL Hct (34.0-46.0) % MCHC (31.0-37.0) g/dL RDW (11.5-15.5) % Plt Count (150-450) k/uL Neutrophils # (1.3-7.7) k/uL Retic Count (0.10-1.80) % Haptoglobin 211.0 H (31.2-198.0) mg/dL PT (9.0-12.0) sec INR (<1.2) Chloride (98-107) mmol/L BUN (7-17) mg/dL Glucose (74-99) mg/dL Iron (50-170) ug/dL TIBC (228-460) ug/dL % Saturation (12.00-45.00) Ferritin (10.0-291.0) ng/mL Total Bilirubin (0.2-1.3) mg/dL AST (14-36) U/L ALT (4-34) U/L Alkaline Phosphatase (38-126) U/L Total Protein (6.3-8.2) g/dL Total Protein (PEP) 4.8 L (6.2-8.2) g/dL Albumin (3.5-5.0) g/dL Urine Appearance (Clear) Ur Specific [place] (1.001-1.035) Urine Protein (Negative) Urine Blood (Negative) Ur Leukocyte Esterase (Negative) Urine RBC (0-5) /hpf Urine WBC (0-5) /hpf Urine WBC Clumps (None) /hpf Ur Squamous Epith Cells (0-4) /hpf Urine Bacteria (None) /hpf Urine Mucus (None) /hpf IgM 38.2 L (40.0-280.0) mg/dL Free [place] LC, Quant 4.02 H (0.33-1.94) mg/dL Free Lambda LC, Quant 4.22 H (0.57-2.63) mg/dL Crossmatch 06/29/19 06/29/19 06/29/19 Range/Units 07:27 07:27 07:27 WBC 28.1 H (3.8-10.6) k/uL RBC 2.10 L (3.80-5.40) m/uL Hgb 6.2 L* (11.4-16.0) gm/dL Hct 20.6 L (34.0-46.0) % MCHC 30.2 L (31.0-37.0) g/dL RDW 17.1 H (11.5-15.5) % Plt Count 821 H (150-450) k/uL Neutrophils # 25.5 H (1.3-7.7) k/uL Retic Count (0.10-1.80) % Haptoglobin (31.2-198.0) mg/dL PT 25.6 H (9.0-12.0) sec INR 2.6 H (<1.2) Chloride 115 H (98-107) mmol/L BUN 21 H (7-17) mg/dL Glucose 104 H (74-99) mg/dL Iron (50-170) ug/dL TIBC (228-460) ug/dL % Saturation (12.00-45.00) Ferritin (10.0-291.0) ng/mL Total Bilirubin 1.9 H (0.2-1.3) mg/dL AST 51 H (14-36) U/L ALT 40 H (4-34) U/L Alkaline Phosphatase 178 H (38-126) U/L Total Protein 4.8 L (6.3-8.2) g/dL Total Protein (PEP) (6.2-8.2) g/dL Albumin 2.0 L (3.5-5.0) g/dL Urine Appearance (Clear) Ur Specific [place] (1.001-1.035) Urine Protein (Negative) Urine Blood (Negative) Ur Leukocyte Esterase (Negative) Urine RBC (0-5) /hpf Urine WBC (0-5) /hpf Urine WBC Clumps (None) /hpf Ur Squamous Epith Cells (0-4) /hpf Urine Bacteria (None) /hpf Urine Mucus (None) /hpf IgM (40.0-280.0) mg/dL Free [place] LC, Quant (0.33-1.94) mg/dL Free Lambda LC, Quant (0.57-2.63) mg/dL Crossmatch 06/29/19 Range/Units 09:53 WBC (3.8-10.6) k/uL RBC (3.80-5.40) m/uL Hgb (11.4-16.0) gm/dL Hct (34.0-46.0) % MCHC (31.0-37.0) g/dL RDW (11.5-15.5) % Plt Count (150-450) k/uL Neutrophils # (1.3-7.7) k/uL Retic Count (0.10-1.80) % Haptoglobin (31.2-198.0) mg/dL PT (9.0-12.0) sec INR (<1.2) Chloride (98-107) mmol/L BUN (7-17) mg/dL Glucose (74-99) mg/dL Iron (50-170) ug/dL TIBC (228-460) ug/dL % Saturation (12.00-45.00) Ferritin (10.0-291.0) ng/mL Total Bilirubin (0.2-1.3) mg/dL AST (14-36) U/L ALT (4-34) U/L Alkaline Phosphatase (38-126) U/L Total Protein (6.3-8.2) g/dL Total Protein (PEP) (6.2-8.2) g/dL Albumin (3.5-5.0) g/dL Urine Appearance (Clear) Ur Specific [place] (1.001-1.035) Urine Protein (Negative) Urine Blood (Negative) Ur Leukocyte Esterase (Negative) Urine RBC (0-5) /hpf Urine WBC (0-5) /hpf Urine WBC Clumps (None) /hpf Ur Squamous Epith Cells (0-4) /hpf Urine Bacteria (None) /hpf Urine Mucus (None) /hpf IgM (40.0-280.0) mg/dL Free [place] LC, Quant (0.33-1.94) mg/dL Free Lambda LC, Quant (0.57-2.63) mg/dL Crossmatch See Detail Microbiology - Last 24 Hours (Table) 06/27/19 10:33 Blood Culture - Preliminary Blood No Growth after 48 hours 06/25/19 07:12 Blood Culture - Preliminary Blood No Growth after 96 hours 06/28/19 11:23 Urine Culture - Preliminary Urine,Catheterized 06/22/19 13:17 Blood Culture - Final Blood No Growth after 144 hours Assessment and Plan Plan: Assessment: 1 Acute hypoxic respiratory failure secondary to animal atelectasis/infiltrate in the right midlung. Suspect aspiration. 2 E coli urinary tract infection 3 Small faint subarachnoid blot/cortical contusion on the anterior right frontal lobe. No mass effect or midline shift. There is a liquefied enlarged right frontal scalp hematoma 4 Acute anemia requiring 2 units packed red blood cells. Current hemoglobin 7.9. 5 History of PE/DVT 6 Hypertension 7 Degenerative joint disease 8 Obesity 9 History of H. 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 Clinically she looks better on today's exam, no signs of respiratory difficulty, she is maintaining stable oxygenation on 2 L, lung sounds are clear, diminished at the bases, she is much more awake today's exam, and responding well, fever pattern has improved. ID service is following, patient is being evaluated by the service for increased LFTs and coagulopathy. No cough or congestion, maintain asp iration precautions. Overall prognosis is guarded I performed a history & physical examination of the patient and discussed their management with my nurse practitioner, Zena Rasmussen. I reviewed the nurse practitioner's note and agree with the documented findings and plan of care. Lung sounds are positive for diminished breath sounds. The findings and the impression was discussed with the patient. I attest to the documentation by the nurse practitioner. Time with Patient: Less than 30
--- NOTE | 2019-06-29 14:10 | P.PN ---
Subjective Progress Note Date: 06/29/19 Principal diagnosis: fall hemoglobin 6.2. Objective - Vital Signs Vital signs: Vital Signs Temp 98.4 F 06/29/19 13:14 Pulse 97 06/29/19 13:14 Resp 16 06/29/19 13:14 BP 135/73 06/29/19 13:14 Pulse Ox 99 06/29/19 05:12 Intake & Output 06/28/19 06/29/19 06/29/19 18:59 06:59 18:59 Intake Total 270 60 0 Output Total 200 475 Balance 70 -415 0 Weight 108.5 kg 109.5 kg Intake: Oral 270 60 Blood Product 0 Rc Pheresis As-3 Unit 0 [id number] Output: Urine 200 475 Other: Voiding Method Indwelling Catheter Indwelling Catheter Indwelling Catheter # Voids 0 - Exam Gen: ALert Head: Right large trauma bump, dried blood Neck Supple Lungs: No increased effort HEart: Irrg Abd Obese Skin: Erythema rash, no pupulars bilateral arms and LLE Ext: R Amputation Neuro: Non-focal Mood Calm - Labs CBC & Chem 7: 06/30/19 06:55 06/30/19 06:55 Labs: Abnormal Lab Results - Last 24 Hours (Table) 06/28/19 06/28/19 06/28/19 Range/Units 11:46 11:46 11:46 WBC (3.8-10.6) k/uL RBC (3.80-5.40) m/uL Hgb (11.4-16.0) gm/dL Hct (34.0-46.0) % MCHC (31.0-37.0) g/dL RDW (11.5-15.5) % Plt Count (150-450) k/uL Neutrophils # (1.3-7.7) k/uL Retic Count 6.89 H (0.10-1.80) % Haptoglobin (31.2-198.0) mg/dL PT (9.0-12.0) sec INR (<1.2) Chloride (98-107) mmol/L BUN (7-17) mg/dL Glucose (74-99) mg/dL Iron 17 L (50-170) ug/dL TIBC 190 L (228-460) ug/dL % Saturation 8.95 L (12.00-45.00) Ferritin 451.2 H (10.0-291.0) ng/mL Total Bilirubin (0.2-1.3) mg/dL AST (14-36) U/L ALT (4-34) U/L Alkaline Phosphatase (38-126) U/L Total Protein (6.3-8.2) g/dL Total Protein (PEP) 4.8 L (6.2-8.2) g/dL Albumin (3.5-5.0) g/dL IgM (40.0-280.0) mg/dL Free [place] LC, Quant 4.02 H (0.33-1.94) mg/dL Free Lambda LC, Quant 4.22 H (0.57-2.63) mg/dL Crossmatch 06/28/19 06/28/19 06/29/19 Range/Units 11:46 11:46 07:27 WBC (3.8-10.6) k/uL RBC (3.80-5.40) m/uL Hgb (11.4-16.0) gm/dL Hct (34.0-46.0) % MCHC (31.0-37.0) g/dL RDW (11.5-15.5) % Plt Count (150-450) k/uL Neutrophils # (1.3-7.7) k/uL Retic Count (0.10-1.80) % Haptoglobin 211.0 H (31.2-198.0) mg/dL PT (9.0-12.0) sec INR (<1.2) Chloride 115 H (98-107) mmol/L BUN 21 H (7-17) mg/dL Glucose 104 H (74-99) mg/dL Iron (50-170) ug/dL TIBC (228-460) ug/dL % Saturation (12.00-45.00) Ferritin (10.0-291.0) ng/mL Total Bilirubin 1.9 H (0.2-1.3) mg/dL AST 51 H (14-36) U/L ALT 40 H (4-34) U/L Alkaline Phosphatase 178 H (38-126) U/L Total Protein 4.8 L (6.3-8.2) g/dL Total Protein (PEP) (6.2-8.2) g/dL Albumin 2.0 L (3.5-5.0) g/dL IgM 38.2 L (40.0-280.0) mg/dL Free [place] LC, Quant (0.33-1.94) mg/dL Free Lambda LC, Quant (0.57-2.63) mg/dL Crossmatch 06/29/19 06/29/19 06/29/19 Range/Units 07:27 07:27 09:53 WBC 28.1 H (3.8-10.6) k/uL RBC 2.10 L (3.80-5.40) m/uL Hgb 6.2 L* (11.4-16.0) gm/dL Hct 20.6 L (34.0-46.0) % MCHC 30.2 L (31.0-37.0) g/dL RDW 17.1 H (11.5-15.5) % Plt Count 821 H (150-450) k/uL Neutrophils # 25.5 H (1.3-7.7) k/uL Retic Count (0.10-1.80) % Haptoglobin (31.2-198.0) mg/dL PT 25.6 H (9.0-12.0) sec INR 2.6 H (<1.2) Chloride (98-107) mmol/L BUN (7-17) mg/dL Glucose (74-99) mg/dL Iron (50-170) ug/dL TIBC (228-460) ug/dL % Saturation (12.00-45.00) Ferritin (10.0-291.0) ng/mL Total Bilirubin (0.2-1.3) mg/dL AST (14-36) U/L ALT (4-34) U/L Alkaline Phosphatase (38-126) U/L Total Protein (6.3-8.2) g/dL Total Protein (PEP) (6.2-8.2) g/dL Albumin (3.5-5.0) g/dL IgM (40.0-280.0) mg/dL Free [place] LC, Quant (0.33-1.94) mg/dL Free Lambda LC, Quant (0.57-2.63) mg/dL Crossmatch See Detail Microbiology - Last 24 Hours (Table) 06/28/19 11:27 Blood Culture - Preliminary Blood No Growth after 24 hours 06/28/19 11:22 Blood Culture - Preliminary Blood No Growth after 24 hours 06/27/19 10:33 Blood Culture - Preliminary Blood No Growth after 48 hours 06/25/19 07:12 Blood Culture - Preliminary Blood No Growth after 96 hours 06/28/19 11:23 Urine Culture - Preliminary Urine,Catheterized 06/22/19 13:17 Blood Culture - Final Blood No Growth after 144 hours Assessment and Plan Plan: Assessment and Recommendations: Normocytic Anemia: - Acute on CHronic - Multifactoral - Baseline - - Acute blood loss from recent fall and possible exacerbated by inflammation - Full work up ordered - Per Neurology AC therapy on hold - Transfuse less than 7 - 6.5 today, transfuse PRBC Thrombocytopsis: Reactive HX: PE/DVT: - AC held per Neuro Coagulopathy: - Vitamin K - Monitor Coags Leukocytosis: Likely reactive - Febrile with positive UTI - COVID neg Physician Attestation: I have performed the full physical examination and reviewed the full history of this patient, as well as pertinent findings. I have created the compled impression and recommendations. I agree with the above dic tation by ROB Sharma. This dictation has been written as a scribe. Thank you for allowig us to participate will continue to follow
[2019-06-29] MEDS: DAPTOmycin 500 MG in SODIUM CHLORIDE 0.9% 50 ML IVPB SCH (16:30)
[2019-06-29 17:48] LABS: Hepatitis A Antibody IgM Non-Reactive (Non-Reactive); Hepatitis B Core IgM Non-Reactive (Non-Reactive); Hepatitis B Surface Antigen Non-Reactive (Non-Reactive); Hepatitis C IgG Antibody Non-Reactive (Non-Reactive)
[2019-06-29] MEDS: MULTIVITAMINS, THERA 1 EACH TAB PO SCH (19:43)
[2019-06-29] MEDS: FOLIC ACID 1 MG TAB PO SCH (19:43)
[2019-06-29] MEDS: ALLOPURINOL 300 MG TAB PO SCH (19:43)
[2019-06-30] MEDS: SODIUM CHLORIDE 0.9% 1,000 ML IV SCH ×2 (01:39→11:35)
--- NOTE | 2019-06-30 04:50 | PN ---
PROGRESS NOTE DATE OF SERVICE: 06/29/2019 REASON FOR FOLLOWUP: UTI and pneumonia. INTERVAL HISTORY: The patient is currently afebrile. She is breathing comfortably. Denies having any chest pain or any cough. No abdominal pain. No diarrhea has been reported. PHYSICAL EXAMINATION: Blood pressure 149/79 with a pulse of 96, temperature 97.4. She is 97% on 2 L nasal cannula. General description is an elderly female lying in bed in no distress. RESPIRATORY SYSTEM: Unlabored breathing, clear to auscultation anteriorly. HEART: S1, S2. Regular rate and rhythm. ABDOMEN: Soft, no tenderness. LABS: Hemoglobin is down to 6.2, white count 28.1 with BUN of 21, creatinine 0.72. DIAGNOSTIC IMPRESSION AND PLAN: Patient with fever which is likely multifactorial, possibly reactive as the patient seemed to have been bleeding. The patient is currently covered with Zosyn and daptomycin to continue and monitor clinical course closely. MMODL / IJN: [id number] /
[2019-06-30] MEDS: ACETAMINOPHEN TAB 500 MG TAB PO PRN (06:00)
[2019-06-30] MEDS: PANTOPRAZOLE 40 MG TABLET PO SCH (06:00)
[2019-06-30 07:25] LABS: Anisocytosis Slight; Basophils # (A) 0.1 k/uL (0-0.2); Basophils % (A) 0 %; Eosinophils # (A) 0.3 k/uL (0-0.7); Eosinophils % (A) 1 %; HCT 25.9 % (34.0-46.0); Hypochromasia Slight; Lymphocytes % (A) 5 %; MCH 29.7 pg (25.0-35.0); MCHC 31.3 g/dL (31.0-37.0); MCV 94.7 fL (80.0-100.0); Mean Platelet Volume 7.7; Monocytes # (A) 0.5 k/uL (0-1.0); Monocytes % (A) 2 %; Neutrophils # (A) 20.2 k/uL (1.3-7.7); Neutrophils % (A) 90 %; Platelet Count 660 k/uL (150-450); Poikilocytosis Slight; RBC 2.73 m/uL (3.80-5.40); RDW 17.3 % (11.5-15.5); WBC 22.4 k/uL (3.8-10.6)
[2019-06-30 07:57] LABS: Albumin 2.1 g/dL (3.5-5.0); Calcium 8.8 mg/dL (8.4-10.2); Potassium 4.2 mmol/L (3.5-5.1); Total Bilirubin 2.2 mg/dL (0.2-1.3)
[2019-06-30 07:58] LABS: HGB 8.1 gm/dL (11.4-16.0)
[2019-06-30 07:59] LABS: INR 1.5 (<1.2); Partial Thromboplastin Time 28.9 sec (22.0-30.0)
[2019-06-30] MEDS: FERROUS SULFATE 325 MG TAB PO SCH (08:43)
[2019-06-30] MEDS: PIPERACILLIN-TAZOBACTAM 3.375 GM in SODIUM CHLORIDE 0.9% 100 ML IVPB SCH ×2 (08:43→22:23)
[2019-06-30] MEDS: CALCIUM CARB-VIT D 500MG-200UN 1 EACH TAB PO SCH ×2 (08:44→21:43)
[2019-06-30] MEDS: METOPROLOL SUCCINATE (ER) 50 MG TAB.ER.24H PO SCH (08:44)
[2019-06-30] MEDS: PARoxetine 10 MG TAB PO SCH ×2 (08:44→21:43)
[2019-06-30] MEDS: ISOSORBIDE MONONITRATE ER 30 MG TAB.ER.24H PO SCH (08:44)
[2019-06-30] MEDS: POTASSIUM CHLORIDE ER 20 MEQ TAB.ER PO SCH (08:45)
[2019-06-30] MEDS: CYANOCOBALAMIN 500 MCG TAB PO SCH (08:45)
[2019-06-30] MEDS: LISINOPRIL 20 MG TAB PO SCH ×2 (08:45→22:23)
[2019-06-30] MEDS: MAGNESIUM OXIDE 400 MG TAB PO SCH ×2 (08:45→21:43)
[2019-06-30] MEDS: PYRIDOXINE 50 MG TAB PO SCH (08:46)
[2019-06-30] MEDS: METOPROLOL TARTRATE 25 MG TAB PO SCH ×2 (11:34→21:48)
[2019-06-30] MEDS: POTASSIUM BICARBONATE/CIT AC 20 MEQ TABLET.EFF PO SCH (11:35)
[2019-06-30 11:48] VITALS: BMI 41.4
--- NOTE | 2019-06-30 11:49 | PN ---
PROGRESS NOTE DATE OF DICTATION: 06/30/2019 The patient is a 73-year-old pleasant white female admitted to the hospital about a week ago urinary tract infection, has been followed by Dr. Carr and is on various antibiotics and as of late she is on Zosyn and daptomycin. The patient was seen in consultation yesterday for elevated serum transaminases that were noted since this hospitalization a week ago. Prior to that, her serum transaminases are within normal limits. The patient denies any complaints other than not feeling well. She complains of tiredness and fatigue. She reports no cough, no chest pain, some abdominal discomfort. Appetite has been decreased. PHYSICAL EXAMINATION: On physical examination, appears comfortable no apparent distress. Vital signs are stable. Blood pressure is 151/81, pulse 98, temperature 97.4. HEENT: Examination unremarkable. Conjunctivae pink. Sclerae anicteric. Oral cavity no lesions. NECK: No JVD or lymph node enlargement. CHEST: Clear to auscultation. HEART: Regular rate and rhythm. ABDOMEN: Obese. There was mild tenderness in the left upper quadrant area. The rest of abdomen was benign, EXTREMITIES: No pedal edema. SKIN: No rashes. NEURO: She is awake and alert, oriented to name and place. LABS: Labs from today: T-bilirubin is up to 2.2, AST 60, ALT 45, and alkaline phosphatase is 199. Hepatitis serologies for A, B and C are negative. Antinuclear antibodies negative. PT/INR is 1.5. Hemoglobin yesterday was 6.2, she received 1 unit of blood transfusion and today hemoglobin 8.1, platelets are 660 and WBC 22.4. IMPRESSION: 1. Leukocytosis secondary to urinary tract infection/pneumonia, presently on Zosyn and daptomycin. 2. Mild elevation of serum transaminases and bilirubin up to 1.9/2.2. The patient has no history of chronic underlying liver disease. However, an occult chronic liver disease cannot be excluded. She is noted to have mild elevation of serum transaminases since this hospitalization, which likely is explained on the basis of medication induced hepatitis. She has been on different antibiotics over the course of the last one week. Currently on Zosyn and daptomycin and serum transaminases seem to be slightly fluctuating but not significantly worse over the last 3 or 4 days. Ultrasound of the right upper quadrant showed coarsened liver, but no biliary ductal dilation. 3. Anemia of chronic disease. Clinically no evidence of active bleeding. RECOMMENDATIONS: As far as LFTs, we will continue to monitor them closely. For now, continue on current antibiotic regimen. Avoid hepatotoxic medications. If she has persistent elevation of serum transaminases, I will do further workup for chronic liver disease. At this time, we will follow with you closely. Thank you for this consultation. MMRUDYL / IJN: [id number] /
[2019-06-30] MEDS ORDERED: FUROSEMIDE 10 MG/ML 2 ML VIAL IV ONE (12:16)
[2019-06-30] MEDS ORDERED: SODIUM FERRIC GLUCONAT-SUCROSE 125 MG in SODIUM CHLORIDE 0.9% 100 ML IVPB ONE (12:30)
--- NOTE | 2019-06-30 12:32 | P.PN ---
Subjective Progress Note Date: 06/30/19 Maria Teresa Celeste is a 73-year-old female resident of [facility] on the [facility] who sustained a fall with head trauma on 06/18/2019 at that time she was sent to emergency room and had a computed tomography scan of the brain and the cervical spine without contrast, she had evidence of a large frontal scalp hematoma and right periorbital hematoma but no intracranial bleeding, she was sent back to [facility] the [facility]. On 06/22/2019 patient was noticed to have worsening mental status was more somnolence and less responsiveness by the nursing staff she was sent back to emergency room repeat computed tomography scan of the brain revealed evidence of minimal subarachnoid hemorrhage and possible intraparenchymal hemorrhage in the right periventricular white matter. Possibility of transferring patient to a tertiary care center was discussed in details in the emergency room, however due to the fact that trauma happened several days ago, and due to the fact that there is an epidemic of Covid 19 infection which is making it very difficult to transfer patient to [facility], and due to patient age and comorbidities which makes intracranial intervention exceedingly difficult, decision was made not to proceed with transferring patient, her son, (and current power of healthcare financial analyst since her earlier this month) who was in the emergency room was in agreement of this decision. Patient was admitted to telemetry floor and neurology consultation was requested. Patient has a known history of DVT and PE, she was maintained on aspirin and Coumadin, these medications are now on hold. Patient also had evidence of urinary tract infection with sepsis as evidenced by temperature of 102.1 and leukocytosis white blood count was 14.0 and tachycardia was heart rate of 123 Patient will be given a fluid bolus lactic acid level was ordered but not resulted yet, she was given a dose of IV Rocephin in the emergency room Infectious disease consultation was requested, Covid 19 testing will be done due to elevated temperature On 06/23/2019 patient was seen and examined on the medical floor she is somnolent and responsive she answers questions briefly but goes back to sleep she is denying any pain or discomfort at this time she is denying shortness of breath or cough she is still having spikes of temperature to 102.4 neurology input reviewed will restart Coumadin tomorrow. On 06/24/2019 patient was seen and examined on the medical floor she is more alert and responsive today, white blood count is up to 15.4 hemoglobin 6.0 at this time Coumadin will be held again she will receive 1 unit of red blood cell transfusion then recheck CBC. Covid 19 testing is still pending patient is still having spikes of temperature or fever this morning was 100.7 she still has tachycardia and low oxygen saturation of 89% on room air On 06/25/2019 patient was seen and examined on the medical floor she is somnolent opens eyes and responsive to stimuli and answers few questions with yes or no" since her eyes again she is still having some fever liver enzymes are more elevated today, white blood count is improving, she is still maintained on IV antibiotic for urinary tract infection albumin level is lower at 2.7 patient has poor oral intake On 06/26/2019 patient was seen and examined on the medical floor she is more alert and responsive today she is answering questions appropriately there is no fever or chills no headache or dizziness no chest pain or shortness of breath no cough no nausea or vomiting no abdominal pain no diarrhea and no urinary symptoms. On 06/27/2019 patient was seen and examined on the medical floor she is alert responsive to stimuli and answers few questions and closes her eyes there is no fever or chills no headache or dizziness no chest pain no shortness of breath no cough, no nausea or vomiting no abdominal pain no diarrhea no burning was urination no frequency or urgency and no hematuria, white blood count is increasing up to 32.9 patient is maintained on Zosyn and vancomycin, infectious disease following On 06/28/2019 A shouldn't was seen and examined on the medical floor she is alert responsive in no apparent distress there is no fever or chills no headache or dizziness no chest pain no shortness of breath no cough no nausea or vomiting no abdominal pain no diarrhea and no urinary symptoms she is complaining of left lower extremity pain white blood count is still significantly elevated at 31 INR is elevated at 5.7 patient is not on any Coumadin at this time a dose of vitamin K orally will be given On 06/29/2019 patient was seen and examined on the medical floor she is more alert today however she is confused there is no fever or chills no headache or dizziness no chest pain no shortness of breath no cough no nausea or vomiting no abdominal pain no diarrhea and no urinary symptoms, hemoglobin today is down to 6.21 unit of red blood cell transfusion was ordered INR is 2.6 patient is not on any Coumadin she received vitamin K yesterday On 06/30/2019 patient is more alert today and responding to questions appropriately there is no fever or chills no headache or dizziness no chest pain no shortness of breath no cough no nausea or vomiting no abdominal pain no diarrhea and no urinary symptoms patient is complaining of left lower extremity pain she has a large bruise on the left knee area, INR today is 1.5 hemoglobin 8.1 Objective - Vital Signs Vital signs: Vital Signs Temp 97.4 F L 06/30/19 04:45 Pulse 98 06/30/19 04:45 Resp 20 06/30/19 04:45 BP 151/81 06/30/19 04:45 Pulse Ox 100 06/30/19 04:45 Intake & Output 06/29/19 06/30/19 06/30/19 18:59 06:59 18:59 Intake Total 310 460 Output Total 500 1350 Balance -190 -890 Weight 109.5 kg Intake: Oral 460 Blood Product 310 Rc Pheresis As-3 Unit 310 [id number] Output: Urine 500 1350 Straight 675 Other: Voiding Method Indwelling Catheter Indwelling Catheter Indwelling Catheter - Exam In general patient is somnolent responsive answering questions by yes or no and quickly goes back to closing her eyes HEENT with significant trauma and hematoma to the face Neck is supple no JVD no goiter no lymphadenopathy Chest exam reveals a few scattered rhonchi no wheezing Cardiac exam reveals regular heart sounds S1 and S2 with tachycardia no gallops no murmurs Abdomen is soft nontender no organomegaly with normal bowel sounds Extremity exam reveals right above-knee amputation and left was 2+ edema Neurological examination mental status as above otherwise no focal neurological deficit at this time - Labs CBC & Chem 7: 06/30/19 06:55 06/30/19 06:55 Labs: Abnormal Lab Results - Last 24 Hours (Table) 06/29/19 06/30/19 06/30/19 Range/Units 09:53 06:55 06:55 WBC 22.4 H (3.8-10.6) k/uL RBC 2.73 L (3.80-5.40) m/uL Hgb 8.1 L D (11.4-16.0) gm/dL Hct 25.9 L (34.0-46.0) % RDW 17.3 H (11.5-15.5) % Plt Count 660 H (150-450) k/uL Neutrophils # 20.2 H (1.3-7.7) k/uL PT (9.0-12.0) sec INR (<1.2) Chloride 113 H (98-107) mmol/L BUN 18 H (7-17) mg/dL Glucose 101 H (74-99) mg/dL Total Bilirubin 2.2 H (0.2-1.3) mg/dL AST 60 H (14-36) U/L ALT 45 H (4-34) U/L Alkaline Phosphatase 199 H (38-126) U/L Total Protein 5.0 L (6.3-8.2) g/dL Albumin 2.1 L (3.5-5.0) g/dL Crossmatch See Detail 06/30/19 Range/Units 06:55 WBC (3.8-10.6) k/uL RBC (3.80-5.40) m/uL Hgb (11.4-16.0) gm/dL Hct (34.0-46.0) % RDW (11.5-15.5) % Plt Count (150-450) k/uL Neutrophils # (1.3-7.7) k/uL PT 15.0 H (9.0-12.0) sec INR 1.5 H (<1.2) Chloride (98-107) mmol/L BUN (7-17) mg/dL Glucose (74-99) mg/dL Total Bilirubin (0.2-1.3) mg/dL AST (14-36) U/L ALT (4-34) U/L Alkaline Phosphatase (38-126) U/L Total Protein (6.3-8.2) g/dL Albumin (3.5-5.0) g/dL Crossmatch Microbiology - Last 24 Hours (Table) 06/25/19 07:12 Blood Culture - Preliminary Blood No Growth after 120 hours 06/28/19 11:23 Urine Culture - Final Urine,Catheterized 06/28/19 11:27 Blood Culture - Preliminary Blood No Growth after 24 hours 06/28/19 11:22 Blood Culture - Preliminary Blood No Growth after 24 hours 06/27/19 10:33 Blood Culture - Preliminary Blood No Growth after 48 hours Assessment and Plan Plan: 1. Recent fall with head trauma 5 days ago with computed tomography scan rev ealing minimal subarachnoid hemorrhage and possible intra-parenchymal hemorrhage in the right periventricular white matter. At this time aspirin and Coumadin are held, neurology consultation was requested. I have discussed this case in details with her son who is the power of healthcare financial analyst at this time. Decision at this time is not to transfer patient to a tertiary care center due to the fact that trauma happened 5 days ago and due to current conditions with Covid 19 epidemic. Son is in agreement not to transfer patient. 2. Urinary tract infection with sepsis, urine culture and blood cultures requested, patient started on IV Rocephin, infectious disease consultation requested 3. Mental status changes, due to metabolic encephalopathy related to sepsis, and possibly to intracranial bleeding, will monitor closely 4. Underlying history of hypertention, home blood pressure medication are re sumed will monitor 5. Tachycardia, will give fluid bolus 250 mL and reassess medications including metoprolol were resumed 6. Febrile illness was temperature of 102, could be related to urinary tract infection however will check Covid 19 Will consult infectious disease 7. 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 8. Previous history of DVT and PE maintained on Coumadin at this time Coumadin is on hold Will resume when advised by neurology 9. Underlying history of anemia. With worsening anemia during this admission requiring multiple red blood cell transfusion, most likely due to acute bleeding, gastroenterology and hematology are following. 10. Swallowing difficulty, speech therapy following, medication with large pills or medications that are not supposed to be crushed need to be changed due to patient unable to swallow, we change imdur to nitroglycerin patch, discontinue oral iron and give 1 dose of IV iron today, change metoprolol to succinate to metoprolol tartrate twice daily. 11. Protein calorie malnutrition continue with protein supplements orally, we will give 1 dose of IV albumin today followed by IV Lasix due to generalized anasarca At this time patient is admitted to telemetry floor, she is started on IV fluid and IV antibiotics Neurology consultation and infectious disease consultation are requested Coumadin and aspirin are on hold, patient received vitamin K 2.5 mg by mouth yesterday we will continue to hold Coumadin At this time patient remains a full code which will be discussed further with her son Will add pulmonary and critical care consult Prognosis is guarded
--- NOTE | 2019-06-30 12:41 | P.PN ---
Subjective Progress Note Date: 06/30/19 Principal diagnosis: fall Hemoglobin has improved as well as coags Objective - Vital Signs Vital signs: Vital Signs Temp 97.4 F L 06/30/19 04:45 Pulse 98 06/30/19 04:45 Resp 20 06/30/19 04:45 BP 151/81 06/30/19 04:45 Pulse Ox 100 06/30/19 04:45 Intake & Output 06/29/19 06/30/19 06/30/19 18:59 06:59 18:59 Intake Total 310 460 Output Total 500 1350 Balance -190 -890 Weight 109.5 kg Intake: Oral 460 Blood Product 310 Rc Pheresis As-3 Unit 310 [id number] Output: Urine 500 1350 Straight 675 Other: Voiding Method Indwelling Catheter Indwelling Catheter Indwelling Catheter - Exam Gen: ALert Head: Right large trauma bump, dried blood Neck Supple Lungs: No increased effort HEart: Irrg Abd Obese Skin: Erythema rash, no pupulars bilateral arms and LLE Ext: R Amputation Neuro: Non-focal Mood Calm - Labs CBC & Chem 7: 06/30/19 06:55 06/30/19 06:55 Labs: Abnormal Lab Results - Last 24 Hours (Table) 06/29/19 06/30/19 06/30/19 Range/Units 09:53 06:55 06:55 WBC 22.4 H (3.8-10.6) k/uL RBC 2.73 L (3.80-5.40) m/uL Hgb 8.1 L D (11.4-16.0) gm/dL Hct 25.9 L (34.0-46.0) % RDW 17.3 H (11.5-15.5) % Plt Count 660 H (150-450) k/uL Neutrophils # 20.2 H (1.3-7.7) k/uL PT (9.0-12.0) sec INR (<1.2) Chloride 113 H (98-107) mmol/L BUN 18 H (7-17) mg/dL Glucose 101 H (74-99) mg/dL Total Bilirubin 2.2 H (0.2-1.3) mg/dL AST 60 H (14-36) U/L ALT 45 H (4-34) U/L Alkaline Phosphatase 199 H (38-126) U/L Total Protein 5.0 L (6.3-8.2) g/dL Albumin 2.1 L (3.5-5.0) g/dL Crossmatch See Detail 06/30/19 Range/Units 06:55 WBC (3.8-10.6) k/uL RBC (3.80-5.40) m/uL Hgb (11.4-16.0) gm/dL Hct (34.0-46.0) % RDW (11.5-15.5) % Plt Count (150-450) k/uL Neutrophils # (1.3-7.7) k/uL PT 15.0 H (9.0-12.0) sec INR 1.5 H (<1.2) Chloride (98-107) mmol/L BUN (7-17) mg/dL Glucose (74-99) mg/dL Total Bilirubin (0.2-1.3) mg/dL AST (14-36) U/L ALT (4-34) U/L Alkaline Phosphatase (38-126) U/L Total Protein (6.3-8.2) g/dL Albumin (3.5-5.0) g/dL Crossmatch Microbiology - Last 24 Hours (Table) 06/25/19 07:12 Blood Culture - Preliminary Blood No Growth after 120 hours 06/28/19 11:23 Urine Culture - Final Urine,Catheterized 06/28/19 11:27 Blood Culture - Preliminary Blood No Growth after 24 hours 06/28/19 11:22 Blood Culture - Preliminary Blood No Growth after 24 hours 06/27/19 10:33 Blood Culture - Preliminary Blood No Growth after 48 hours Assessment and Plan Plan: Assessment and Recommendations: Normocytic Anemia: - Acute on CHronic - Multifactoral - Baseline 10-11 - Acute blood loss from recent fall and possible exacerbated by inflammation - Full work up ordered - Per Neurology AC therapy on hold - Transfuse less than 7 - Improved today, no transfusion required Thrombocytopsis: Reactive HX: PE/DVT: - AC held per Neuro Coagulopathy:Improved - Vitamin K - Monitor Coags Leukocytosis: Likely reactive - COVID neg Physician Attestation: I have performed the full physical examination and reviewed the full history of this patient, as well as pertinent findings. I have created the compled impression and recommendations. I agree with the above dictation by ROB Sharma. This dictation has been written as a scribe.
[2019-06-30] MEDS: NITROGLYCERIN 0.3MG/HR PATCH TRANSDERM SCH (12:43)
--- NOTE | 2019-06-30 12:58 | P.PN ---
Subjective Progress Note Date: 06/30/19 Principal diagnosis: Acute aspiration pneumonia and frontal scalp hematoma, small subarachnoid hematoma/cortical contusion On 06/26/2019 patient seen in follow-up on selective care unit. She ruled out for Covid 19. Patient is confused, but she opens eyes to voice and verbal and tactile stimulation, her speech times is incomprehensible, does not appear to be in any acute respiratory distress, she is on 2 L of oxygen with a pulse ox of 96%, hemodynamically stable, she is afebrile. She has a large right supraorbital hematoma, and she has mild bruising in the periorbital areas of her bilateral face. Patient has been febrile over the last 24 hours, with a T- max of 10 1F. Apparently rapid response team was called last night for concern of fever, increased respiratory rate, and decreased level of consciousness, a CT brain was repeated showing no acute intracranial abnormality, large frontal scalp hematoma, and there was no change compared to previous exam. Vital signs are stable, her blood gas showed pO2 of 110, pCO2 of 40, and pH of 7.43, this was done on FiO2 of 20%, and did not show any abnormality with the ventilation. Today's chest x-ray has been reviewed showing persistent atelectasis in the right lower lobe and/or infiltrate, no significant change. ID service is following, and patient is on antibiotics in the form of Zosyn and vancomycin, urine culture showed E. coli. On 06/27/2019 patient seen in follow-up on selective care unit, she is more l ethargic on today's exam, she does arouse to vigorous tactile stimulation, opens eyes briefly, does not maintain eye contact, low-grade fevers today, room air pulse ox is 96-98%, hemodynamically patient is stable, she remains on a combination of Zosyn and vancomycin, urine culture showed E. coli, view of her decreased mentation, and increase in her white blood cell count on today's labs will obtain another set of blood cultures, and the blood gas. No nausea or vomiting, no complaints of abdominal pain, today's hemoglobin is 6.7 with no obvious signs of bleeding, right supraorbital hematoma appears to be unchanged, blood gas was reviewed, showing pO2 of 69, pCO2 of 38, and pH of 7.41, was done on FiO2 of 28%, showing acute hypoxemia requiring supplemental oxygen, but no ventilation abnormality. The rest of the labs have been reviewed showing sodium of 145, potassium is 4.4, Court is 118, CO2 is 21, BUN is 33, creatinine is 1.06. Liver enzymes are relatively stable, Coumadin and aspirin remain on hold. Overall prognosis is extremely guarded, and attending physician will discuss patient's plan of care, and goals of treatment with patient's son who is the guardian On 06/28/2019 patient seen in follow-up on selective care unit, she is resting in bed, she is febrile with a temp of 99.5 axillary, and patient was already given antipyretics, her respirations are tachypneic, however there are no wheezes, or rhonchi, she is on 2 L of oxygen and the pulse ox of 96-99%, hemodynamically patient is stable, slightly tachycardic, tachypneic as mentioned above. Yesterday we send a set of blood cultures and are pending for now. Right [id number] amputation stump wound appears to be clean dry, : Care is being done, ID service is following, patient is on a combination of Zosyn and vancomycin, oral intake has been extremely poor, we will obtain speech evaluation consultation. And is lethargic, but opens eyes to verbal stimulation, she is not following commands, she is not maintaining eye contact, today's labs have been reviewed showing slightly decreased white blood cell, with a WBC of 31.8, hemoglobin of 7.3, patient did receive a unit of blood yesterday for hemoglobin of 6.7, and her has been no obvious source of bleeding, platelet 642, INR today is 5.7, sodium is 143, potassium is 4.3, chloride is 1:15, CO2 is 22, BUN is 21, creatinine 0.78, liver enzymes are trending down, LDH remains elevated at 646, and patient was tested negative for cold mid 19, neurology is following, anticoagulation remains on hold On 06/29/2019 patient seen in follow-up on general medical floor. She is much more awake on today's exam, she is looking better, doesn't seem to be in any acute distress, no evidence of respiratory difficulty, she is on 2 L of oxygen with a pulse ox of 99%, her last episode of fever was yesterday at around 12:00, she's been afebrile since. Her white blood cell count is slightly improved on today's exam, with the white blood cell count is 28.1, hemoglobin is 6.2, with no obvious source of bleeding, INR today is 2.6, sodium is 141, potassium 4.4, c hloride is 1:15, B UN is 21, creatinine 0.72, total bilirubin is 1.9, AST is 51, ALT is 40, Sunflower phosphatase is 178. Patient is on a combination of antibiotics that includes Zosyn and vancomycin, urine culture has been sent, and is pending at this time, follow blood cultures have been negative, yesterday's urinalysis was sent showing evidence of urinary tract infection, with large amount of leukocyte esterase, 74 of white blood cell counts and white blood cell in clumps. Patient is being evaluated by GI service in regards to the LFTs, and she is being managed medically at this point, Dr. Nacho Kulkarni from infectious diseases on, patient denies any abdominal pain, no nausea vomiting, no diarrhea. Breathing seems to be comfortable, lung sounds are clear. Reevaluated today on 06/30/19, patient is on the general medical floor, feeling better, continues to have a bit of difficulty with swallowing, suspect the patient may be experiencing some episodes of microaspiration. Chest x-ray from a few days ago showed discoid atelectasis, possible infiltrate in the right midlung. Patient denies any shortness of breath, she has intermittent cough, no wheezing, no fever, no chills, no hemoptysis, and no chest pain. Continues to have a bit of leukocytosis with WBC count of 22.4 improved compared to yesterday. Hemoglobin is 8.1. Basic metabolic profile in the upper 5 are noted to be normal. INR today is 1.5. It was 2.6 yesterday. Hepatitis screen has been all negative. Including hepatitis A, B, and C. Urine cultures have been positive for E. coli. And she is on treatment for E. coli urinary tract infection. Patient did receive a total of 4 units of packed RBCs for her presentation with anemia, and presently her hemoglobin is 8.1. Objective - Vital Signs Vital signs: Vital Signs Temp 97.4 F L 06/30/19 04:45 Pulse 98 06/30/19 04:45 Resp 20 06/30/19 04:45 BP 151/81 06/30/19 04:45 Pulse Ox 100 06/30/19 04:45 Intake & Output 06/29/19 06/30/19 06/30/19 18:59 06:59 18:59 Intake Total 310 460 Output Total 500 1350 Balance -190 -890 Weight 109.5 kg Intake: Oral 460 Blood Product 310 Rc Pheresis As-3 Unit 310 [id number] Output: Urine 500 1350 Straight 675 Other: Voiding Method Indwelling Catheter Indwelling Catheter Indwelling Catheter - Exam GENERAL EXAM: Revealed a 73-year-old female in no distress. HEAD: Normocephalic/atraumatic. Evidence of frontal hematoma noted, small, and superficial. EENT: PERRLA, EOMI, no icterus, no neck masses, no JVD. CHEST: No chest wall deformity. Symmetrical expansion. LUNGS: Diminished breath sounds at the bases no crackles or rhonchi or wheezes. CVS: Regular rate and rhythm, normal S1 and S2, no gallops, no murmurs, no rubs ABDOMEN: Soft, nontender. No hepatosplenomegaly, normal bowel sounds, no guarding or rigidity. EXTREMITIES: No clubbing, no edema, no cyanosis, 2+ pulses and upper and lower extremities. MUSCULOSKELETAL: Muscle strength and tone normal. Right [id number] amputation, there is a wound on the right stump, and the wound bed is clean, there is a silver dressing on, with no significant exudate SKIN: No rashes CENTRAL NERVOUS SYSTEM: Alert and oriented 3 focal neurologic deficits. PSYCHIATRIC: Depressed mood, blunt affect, seems to be alert and oriented 3. Mentation seems to be improving compared to mentation on presentation. - Labs CBC & Chem 7: 06/30/19 06:55 06/30/19 06:55 Labs: Abnormal Lab Results - Last 24 Hours (Table) 06/29/19 06/30/19 06/30/19 Range/Units 09:53 06:55 06:55 WBC 22.4 H (3.8-10.6) k/uL RBC 2.73 L (3.80-5.40) m/uL Hgb 8.1 L D (11.4-16.0) gm/dL Hct 25.9 L (34.0-46.0) % RDW 17.3 H (11.5-15.5) % Plt Count 660 H (150-450) k/uL Neutrophils # 20.2 H (1.3-7.7) k/uL PT (9.0-12.0) sec INR (<1.2) Chloride 113 H (98-107) mmol/L BUN 18 H (7-17) mg/dL Glucose 101 H (74-99) mg/dL Total Bilirubin 2.2 H (0.2-1.3) mg/dL AST 60 H (14-36) U/L ALT 45 H (4-34) U/L Alkaline Phosphatase 199 H (38-126) U/L Total Protein 5.0 L (6.3-8.2) g/dL Albumin 2.1 L (3.5-5.0) g/dL Crossmatch See Detail 06/30/19 Range/Units 06:55 WBC (3.8-10.6) k/uL RBC (3.80-5.40) m/uL Hgb (11.4-16.0) gm/dL Hct (34.0-46.0) % RDW (11.5-15.5) % Plt Count (150-450) k/uL Neutrophils # (1.3-7.7) k/uL PT 15.0 H (9.0-12.0) sec INR 1.5 H (<1.2) Chloride (98-107) mmol/L BUN (7-17) mg/dL Glucose (74-99) mg/dL Total Bilirubin (0.2-1.3) mg/dL AST (14-36) U/L ALT (4-34) U/L Alkaline Phosphatase (38-126) U/L Total Protein (6.3-8.2) g/dL Albumin (3.5-5.0) g/dL Crossmatch Microbiology - Last 24 Hours (Table) 06/25/19 07:12 Blood Culture - Preliminary Blood No Growth after 120 hours 06/28/19 11:23 Urine Culture - Final Urine,Catheterized 06/28/19 11:27 Blood Culture - Preliminary Blood No Growth after 24 hours 06/28/19 11:22 Blood Culture - Preliminary Blood No Growth after 24 hours 06/27/19 10:33 Blood Culture - Preliminary Blood No Growth after 48 hours Assessment and Plan Assessment: 1 Acute hypoxic respiratory, mostly secondary to aspiration pneumonia, and some component of atelectasis as noted on the chest x-ray. 2 E coli urinary tract infection , remains on antibiotics. 3 Small faint subarachnoid blot/cortical contusion on the anterior right frontal lobe. No mass effect or midline shift. There is a liquefied enlarged right frontal scalp hematoma 4 Acute blood loss anemia and this is most likely related to Coumadin coagulopathy, Coumadin remains on hold for now. 6 Hypertension 7 Degenerative joint disease 8 Obesity 9 History of H. 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 And again this is being addressed by gastroenterology. Recommendation: Continue antibiotics. Mostly for aspiration pneumonia and for E. coli urinary tract infection. Continue to hold Coumadin and aspirin. Continue swallowing precautions. Resume Coumadin once cleared by neurology. Patient is normally at the [facility], and eventually she will need placement back in the [facility]. We will continue to follow. Time with Patient: Less than 30
[2019-06-30] MEDS: ALBUMIN HUMAN 25% 50 ML in EMPTY BAG 1 BAG IVPB SCH ×2 (14:16→15:16)
[2019-06-30] MEDS: DAPTOmycin 500 MG in SODIUM CHLORIDE 0.9% 50 ML IVPB SCH (21:41)
[2019-06-30] MEDS: FOLIC ACID 1 MG TAB PO SCH (21:43)
[2019-06-30] MEDS: MULTIVITAMINS, THERA 1 EACH TAB PO SCH (21:43)
[2019-06-30] MEDS: ALLOPURINOL 300 MG TAB PO SCH (21:43)
[2019-07-01] MEDS: PIPERACILLIN-TAZOBACTAM 3.375 GM in SODIUM CHLORIDE 0.9% 100 ML IVPB SCH ×4 (01:17→23:57)
[2019-07-01] MEDS: PANTOPRAZOLE 40 MG TABLET PO SCH (05:18)
[2019-07-01] MEDS: CALCIUM CARB-VIT D 500MG-200UN 1 EACH TAB PO SCH ×2 (08:19→21:36)
[2019-07-01] MEDS: PARoxetine 10 MG TAB PO SCH ×2 (08:19→18:07)
[2019-07-01] MEDS: MAGNESIUM OXIDE 400 MG TAB PO SCH ×2 (08:20→21:35)
[2019-07-01] MEDS: METOPROLOL TARTRATE 25 MG TAB PO SCH ×2 (08:20→21:35)
[2019-07-01] MEDS: NITROGLYCERIN 0.3MG/HR PATCH TRANSDERM SCH (08:20)
[2019-07-01] MEDS: LISINOPRIL 20 MG TAB PO SCH ×2 (08:20→18:07)
[2019-07-01] MEDS: CYANOCOBALAMIN 500 MCG TAB PO SCH (08:20)
[2019-07-01] MEDS: POTASSIUM BICARBONATE/CIT AC 20 MEQ TABLET.EFF PO SCH (08:21)
[2019-07-01] MEDS: PYRIDOXINE 50 MG TAB PO SCH (08:21)
[2019-07-01 08:38] LABS: Albumin 2.3 g/dL (3.5-5.0); Calcium 8.6 mg/dL (8.4-10.2); Potassium 4.1 mmol/L (3.5-5.1); Total Bilirubin 1.9 mg/dL (0.2-1.3); Total Protein 5.1 g/dL (6.3-8.2)
[2019-07-01] MEDS: SODIUM CHLORIDE 0.9% 1,000 ML IV SCH (11:58)
--- NOTE | 2019-07-01 14:47 | PN ---
PROGRESS NOTE DATE OF DICTATION: 07/01/2019 This patient is a 73-year-old white female admitted to the hospital with acute UTI/pneumonia. She remains on broad-spectrum antibiotics. She was evaluated by me 2 days ago for elevated LFTs. She continues to remain on Zosyn and daptomycin. She has been afebrile. Today very lethargic, and as per the nursing staff she had breakfast this morning but has been very slow. PHYSICAL EXAMINATION: She appears comfortable. VITAL SIGNS: Blood pressure 109/64, pulse rate 91, temperature 98.2. HEENT examination unremarkable. Conjunctivae pink. Sclerae anicteric. Oral cavity no lesions. NECK: No JVD or lymph node enlargement. CHEST: Clear to auscultation. HEART: Regular rate and rhythm. ABDOMEN: Soft. Obese. Bowel sounds are positive. EXTREMITIES: Diffuse edema noted. NEUROLOGIC: She is very sleepy. LABS: WBC 22.4, hemoglobin 8.1, platelets normal. Basic metabolic panel is within normal limits. Bilirubin is 1.9. AST and ALT are 75 and 50, respectively, and alkaline phosphatase 193. IMPRESSION: 1. Mild elevation of serum transaminases as well as total bilirubin at 1.9 that has been noted during this hospitalization. As mentioned earlier, at the time of admission to the hospital her serum transaminases were within normal limits. Most likely we are dealing with medication-induced hepatitis. Serum transaminases continue to remain stable and only slightly elevated. 2. Urinary tract infection, on broad-spectrum antibiotics. 3. Pneumonia. 4. Altered mental status/frontal hematoma from recent fall. 5. History of deep venous thrombosis/pulmonary embolism, on Coumadin, which is currently on hold. Hemoglobin was 6.2 two days ago. She received 2 units of transfusion. Now it is stable. RECOMMENDATIONS: 1. Continue with current management. 2. Will continue to monitor her serum transaminases on a daily basis. 3. Will follow with you. Thank you for this consultation. MMODL / IJN: [id number] /
--- NOTE | 2019-07-01 15:24 | P.PN ---
Subjective Progress Note Date: 07/01/19 Maria Teresa Celeste is a 73-year-old female resident of [facility] on the [facility] who sustained a fall with head trauma on 06/18/2019 at that time she was sent to emergency room and had a computed tomography scan of the brain and the cervical spine without contrast, she had evidence of a large frontal scalp hematoma and right periorbital hematoma but no intracranial bleeding, she was sent back to [facility] on the [facility]. On 06/22/2019 patient was noticed to have worsening mental status was more somnolence and less responsiveness by the nursing staff she was sent back to emergency room repeat computed tomography scan of the brain revealed evidence of minimal subarachnoid hemorrhage and possible intraparenchymal hemorrhage in the right periventricular white matter. Possibility of transferring patient to a tertiary care center was discussed in details in the emergency room, however due to the fact that trauma happened several days ago, and due to the fact that there is an epidemic of Covid 19 infection which is making it very difficult to transfer patient to [facility], and due to patient age and comorbidities which makes intracranial intervention exceedingly difficult, decision was made not to proceed with transferring patient, her son, (and current power of personal injury attorney since her earlier this month) who was in the emergency room was in agreement of this decision. Patient was admitted to telemetry floor and neurology consultation was requested. Patient has a known history of DVT and PE, she was maintained on aspirin and Coumadin, these medications are now on hold. Patient also had evidence of urinary tract infection with sepsis as evidenced by temperature of 102.1 and leukocytosis white blood count was 14.0 and tachycardia was heart rate of 123 Patient will be given a fluid bolus lactic acid level was ordered but not resulted yet, she was given a dose of IV Rocephin in the emergency room Infectious disease consultation was requested, Covid 19 testing will be done due to elevated temperature On 06/23/2019 patient was seen and examined on the medical floor she is somnolent and responsive she answers questions briefly but goes back to sleep she is denying any pain or discomfort at this time she is denying shortness of breath or cough she is still having spikes of temperature to 102.4 neurology input reviewed will restart Coumadin tomorrow. On 06/24/2019 patient was seen and examined on the medical floor she is more alert and responsive today, white blood count is up to 15.4 hemoglobin 6.0 at this time Coumadin will be held again she will receive 1 unit of red blood cell transfusion then recheck CBC. Covid 19 testing is still pending patient is still having spikes of temperature or fever this morning was 100.7 she still has tachycardia and low oxygen saturation of 89% on room air On 06/25/2019 patient was seen and examined on the medical floor she is somnolent opens eyes and responsive to stimuli and answers few questions with yes or no" since her eyes again she is still having some fever liver enzymes are more elevated today, white blood count is improving, she is still maintained on IV antibiotic for urinary tract infection albumin level is lower at 2.7 patient has poor oral intake On 06/26/2019 patient was seen and examined on the medical floor she is more alert and responsive today she is answering questions appropriately there is no fever or chills no headache or dizziness no chest pain or shortness of breath no cough no nausea or vomiting no abdominal pain no diarrhea and no urinary symptoms. On 06/27/2019 patient was seen and examined on the medical floor she is alert responsive to stimuli and answers few questions and closes her eyes there is no fever or chills no headache or dizziness no chest pain no shortness of breath no cough, no nausea or vomiting no abdominal pain no diarrhea no burning was urination no frequency or urgency and no hematuria, white blood count is increasing up to 32.9 patient is maintained on Zosyn and vancomycin, infectious disease following On 06/28/2019 A shouldn't was seen and examined on the medical floor she is alert responsive in no apparent distress there is no fever or chills no headache or dizziness no chest pain no shortness of breath no cough no nausea or vomiting no abdominal pain no diarrhea and no urinary symptoms she is complaining of left lower extremity pain white blood count is still significantly elevated at 31 INR is elevated at 5.7 patient is not on any Coumadin at this time a dose of vitamin K orally will be given On 06/29/2019 patient was seen and examined on the medical floor she is more alert today however she is confused there is no fever or chills no headache or dizziness no chest pain no shortness of breath no cough no nausea or vomiting no abdominal pain no diarrhea and no urinary symptoms, hemoglobin today is down to 6.21 unit of red blood cell transfusion was ordered INR is 2.6 patient is not on any Coumadin she received vitamin K yesterday On 06/30/2019 patient is more alert today and responding to questions appropriately there is no fever or chills no headache or dizziness no chest pain no shortness of breath no cough no nausea or vomiting no abdominal pain no diarrhea and no urinary symptoms patient is complaining of left lower extremity pain she has a large bruise on the left knee area, INR today is 1.5 hemoglobin 8.1 On 07/01/2019 patient was seen and examined on the medical floor she is alert a nd responding to few questions then closes her eyes she is complaining of pain in the left knee area otherwise no complaints she has a large hematoma on the knee, there is no fever or chills no chest pain or shortness of breath no cough no nausea or vomiting no abdominal pain no diarrhea and no urinary symptoms Objective - Vital Signs Vital signs: Vital Signs Temp 99.4 F 07/01/19 12:46 Pulse 83 07/01/19 12:46 Resp 18 07/01/19 12:46 BP 117/70 07/01/19 12:46 Pulse Ox 100 07/01/19 12:46 Intake & Output 06/30/19 07/01/19 07/01/19 18:59 06:59 18:59 Intake Total 240 Output Total 1800 875 300 Balance -1800 -875 -60 Weight 109.5 kg Intake: Oral 240 Output: Urine 1800 875 300 Other: Voiding Method Indwelling Catheter Indwelling Catheter # Bowel Movements 1 1 - Exam In general patient is somnolent responsive answering questions by yes or no and quickly goes back to closing her eyes HEENT with significant trauma and hematoma to the face Neck is supple no JVD no goiter no lymphadenopathy Chest exam reveals a few scattered rhonchi no wheezing Cardiac exam reveals regular heart sounds S1 and S2 with tachycardia no gallops no murmurs Abdomen is soft nontender no organomegaly with normal bowel sounds Extremity exam reveals right above-knee amputation and left was 2+ edema Neurological examination mental status as above otherwise no focal neurological deficit at this time - Labs CBC & Chem 7: 06/30/19 06:55 07/01/19 07:36 Labs: Abnormal Lab Results - Last 24 Hours (Table) 07/01/19 Range/Units 07:36 Chloride 109 H (98-107) mmol/L Total Bilirubin 1.9 H (0.2-1.3) mg/dL AST 75 H (14-36) U/L ALT 50 H (4-34) U/L Alkaline Phosphatase 193 H (38-126) U/L Total Protein 5.1 L (6.3-8.2) g/dL Albumin 2.3 L (3.5-5.0) g/dL Microbiology - Last 24 Hours (Table) 06/28/19 11:22 Blood Culture - Preliminary Blood No Growth after 72 hours 06/28/19 11:27 Blood Culture - Preliminary Blood No Growth after 72 hours 06/27/19 10:33 Blood Culture - Preliminary Blood No Growth after 96 hours 06/25/19 07:12 Blood Culture - Final Blood No Growth after 144 hours Assessment and Plan Plan: 1. Recent fall with head trauma 5 days ago with computed tomography scan revealing minimal subarachnoid hemorrhage and possible intra-parenchymal hemorrhage in the right periventricular white matter. At this time aspirin and Coumadin are held, neurology consultation was requested. I have discussed this case in details with her son who is the power of personal injury attorney at this time. Decision at this time is not to transfer patient to a tertiary care center due to the fact that trauma happened 5 days ago and due to current conditions with Covid 19 epidemic. Son is in agreement not to transfer patient. 2. Urinary tract infection with sepsis, urine culture and blood cultures requested, patient started on IV Rocephin, infectious disease consultation requested 3. Mental status changes, due to metabolic encephalopathy related to sepsis, and possibly to intracranial bleeding, will monitor closely 4. Underlying history of hypertention, home blood pressure medication are resumed will monitor 5. Tachycardia, will give fluid bolus 250 mL and reassess medications including metoprolol were resumed 6. Febrile illness was temperature of 102, could be related to urinary tract infection however will check Covid 19 Will consult infectious disease 7. 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 8. Previous history of DVT and PE maintained on Coumadin at this time Coumadin is on hold Will resume when advised by neurology 9. Underlying history of anemia. With worsening anemia during this admission requiring multiple red blood cell transfusion, most likely due to acute bleeding, gastroenterology and hematology are following. 10. Swallowing difficulty, speech therapy following, medication with large pills or medications that are not supposed to be crushed need to be changed due to patient unable to swallow, we change imdur to nitroglycerin patch, discontinue oral iron and give 1 dose of IV iron today, change metoprolol to succinate to metoprolol tartrate twice daily. 11. Protein calorie malnutrition continue with protein supplements orally, we will give 1 dose of IV albumin today followed by IV Lasix due to generalized anasarca At this time patient is admitted to telemetry floor, she is started on IV fluid and IV antibiotics Neurology consultation and infectious disease consultation are requested Coumadin and aspirin are on hold, will recheck INR in a.m. Will check CBC and CMP in a.m. At this time patient remains a full code which will be discussed further with her son Will add pulmonary and critical care consult Prognosis is guarded
[2019-07-01] MEDS: DAPTOmycin 500 MG in SODIUM CHLORIDE 0.9% 50 ML IVPB SCH (17:20)
[2019-07-01] MEDS: MULTIVITAMINS, THERA 1 EACH TAB PO SCH (21:35)
[2019-07-01] MEDS: ALLOPURINOL 300 MG TAB PO SCH (21:36)
[2019-07-01] MEDS: FOLIC ACID 1 MG TAB PO SCH (21:36)
[2019-07-02] MEDS: ACETAMINOPHEN TAB 500 MG TAB PO PRN ×2 (00:22→08:46)
[2019-07-02] MEDS: PANTOPRAZOLE 40 MG TABLET PO SCH (06:07)
[2019-07-02 08:14] LABS: Anisocytosis Slight; Basophils # (A) 0.1 k/uL (0-0.2); Basophils % (A) 1 %; Eosinophils # (A) 0.3 k/uL (0-0.7); Eosinophils % (A) 2 %; HCT 25.7 % (34.0-46.0); HGB 7.8 gm/dL (11.4-16.0); Hypochromasia Marked; Lymphocytes # (A) 0.9 k/uL (1.0-4.8); Lymphocytes % (A) 5 %; MCH 29.7 pg (25.0-35.0); MCHC 30.2 g/dL (31.0-37.0); MCV 98.2 fL (80.0-100.0); Macrocytosis Slight; Mean Platelet Volume 7.4; Monocytes # (A) 0.4 k/uL (0-1.0); Monocytes % (A) 2 %; Neutrophils # (A) 15.6 k/uL (1.3-7.7); Neutrophils % (A) 88 %; Platelet Count 723 k/uL (150-450); Poikilocytosis Slight; RBC 2.62 m/uL (3.80-5.40); RDW 17.5 % (11.5-15.5); WBC 17.6 k/uL (3.8-10.6)
[2019-07-02 08:32] LABS: ALT 64 U/L (4-34); AST 105 U/L (14-36); African American GFR (CKD) >90 (>60 ml/min/1.73 sqM); Albumin 2.3 g/dL (3.5-5.0); Alkaline Phosphatase 211 U/L (38-126); Anion Gap 5 mmol/L; Blood Urea Nitrogen 15 mg/dL (7-17); Calcium 8.3 mg/dL (8.4-10.2); Carbon Dioxide 26 mmol/L (22-30); Chloride 106 mmol/L (98-107); Glucose 105 mg/dL (74-99); Non-African American GFR(CKD) 89 (>60 ml/min/1.73 sqM); Potassium 4.1 mmol/L (3.5-5.1); Sodium 137 mmol/L (137-145); Total Bilirubin 2.1 mg/dL (0.2-1.3); Total Protein 5.5 g/dL (6.3-8.2)
[2019-07-02 08:41] LABS: INR 1.6 (<1.2); Prothrombin Time 16.2 sec (9.0-12.0)
[2019-07-02] MEDS: PARoxetine 10 MG TAB PO SCH ×2 (08:46→17:32)
[2019-07-02] MEDS: MAGNESIUM OXIDE 400 MG TAB PO SCH ×2 (08:46→20:22)
[2019-07-02] MEDS: LISINOPRIL 20 MG TAB PO SCH ×2 (08:46→17:32)
[2019-07-02] MEDS: CYANOCOBALAMIN 500 MCG TAB PO SCH (08:46)
[2019-07-02] MEDS: PYRIDOXINE 50 MG TAB PO SCH (08:46)
[2019-07-02] MEDS: CALCIUM CARB-VIT D 500MG-200UN 1 EACH TAB PO SCH ×2 (08:46→20:23)
[2019-07-02] MEDS: POTASSIUM BICARBONATE/CIT AC 20 MEQ TABLET.EFF PO SCH (08:46)
[2019-07-02] MEDS: METOPROLOL TARTRATE 25 MG TAB PO SCH ×2 (08:46→20:23)
[2019-07-02] MEDS: NITROGLYCERIN 0.3MG/HR PATCH TRANSDERM SCH (08:48)
--- NOTE | 2019-07-02 08:49 | PN ---
PROGRESS NOTE DATE OF SERVICE: 07/01/2019 REASON FOR FOLLOWUP: Pneumonia and elevated white count. INTERVAL HISTORY: The patient is currently afebrile. The patient is breathing comfortably. The patient denies having any chest pain. Did have some cough but no sputum. No nausea, no vomiting. No abdominal pain or diarrhea. PHYSICAL EXAMINATION: Blood pressure is 142/75 with a pulse of 98. Temperature 98.6. She is 99% on 2 L nasal cannula. General description is an elderly female lying in bed in no distress. Respiratory system: Unlabored breathing. Clear to auscultation anteriorly. Heart S1, S2. Regular rate and rhythm. Abdomen soft, no tenderness. LABS: Hemoglobin is 8.1, white count 22.4 with a BUN of 16, creatinine 0.81. DIAGNOSTIC IMPRESSION AND PLAN: Patient with fever, leukocytosis, likely multifactorial. This patient did have a component of pneumonia, possible BKA stump cellulitis. The patient clinically responding to Zosyn and daptomycin to continue as white count is trending down and fever has resolved and monitor clinical course closely. MMODL / IJN: [id number] /
--- NOTE | 2019-07-02 10:14 | PN ---
PROGRESS NOTE DATE OF SERVICE: 07/02/2019 Patient is a 73-year-old white female with history of altered mental status. Recent fall with a small subarachnoid hemorrhage and a frontal hematoma, has been in the hospital for the last 1 week, diagnosed with UTI and pneumonia on broad-spectrum antibiotics. She developed elevated serum transaminases during this hospitalization which continued to remain the same. She is not very verbal and not responding to any questions. As per the nursing staff, overall medical condition has not significantly changed for the last 2 days. PHYSICAL EXAMINATION: She is lying in bed, not answering to any questions. VITAL SIGNS: Blood pressure 143/86, pulse 92, temperature 98.2. HEENT examination unremarkable. Conjunctivae pink. Sclerae anicteric. There is a frontal hematoma noted on the right side. CHEST: Clear to auscultation. HEART: Regular rate and rhythm. ABDOMEN: Obese. Bowel sounds are positive. EXTREMITIES: Generalized anasarca. NEURO: Not responding to any questions. LABS: WBC 7.6, hemoglobin 7.8, platelets normal. Basic metabolic panel is within normal limits. INR is 1.6, T-bilirubin 2.1, AST 105, ALT 64, alkaline phosphatase is 211. IMPRESSION: 1. Recent fall with a small subarachnoid hemorrhage and frontal hematoma. Neurology was consulted. 2. History of deep vein thrombosis, pulmonary embolism, on Coumadin which is currently on hold. INR 1.6. 3. Elevated serum transaminases noted during this hospitalization, most likely medication-related. Hepatitis serologies for A, B and C negative. She remains on daptomycin and Zosyn for urinary tract infection/pneumonia. Serum transaminases are fluctuating, but no significant change noted. 4. Altered mental status/metabolic encephalopathy. RECOMMENDATIONS: 1. Continue to monitor LFTs on a daily basis. 2. Avoid hepatotoxic medications. 3. Continue with current antibiotic use. 4. We will follow with you. Thank you for this consultation. MMODL / IJN: [id number] /
[2019-07-02] MEDS: SODIUM CHLORIDE 0.9% 1,000 ML IV SCH (11:18)
[2019-07-02] MEDS ORDERED: FUROSEMIDE 10 MG/ML 4 ML VIAL IV STA (12:09)
--- NOTE | 2019-07-02 12:13 | P.PN ---
Subjective Progress Note Date: 07/02/19 Maria Teresa Celeste is a 73-year-old female resident of [facility] on the [facility] who sustained a fall with head trauma on 06/18/2019 at that time she was sent to emergency room and had a computed tomography scan of the brain and the cervical spine without contrast, she had evidence of a large frontal scalp hematoma and right periorbital hematoma but no intracranial bleeding, she was sent back to [facility] on the [facility]. On 06/22/2019 patient was noticed to have worsening mental status was more somnolence and less responsiveness by the nursing staff she was sent back to emergency room repeat computed tomography scan of the brain revealed evidence of minimal subarachnoid hemorrhage and possible intraparenchymal hemorrhage in the right periventricular white matter. Possibility of transferring patient to a tertiary care center was discussed in details in the emergency room, however due to the fact that trauma happened several days ago, and due to the fact that there is an epidemic of Covid 19 infection which is making it very difficult to transfer patient to [facility], and due to patient age and comorbidities which makes intracranial intervention exceedingly difficult, decision was made not to proceed with transferring patient, her son, (and current power of litigation attorney associate since her earlier this month) who was in the emergency room was in agreement of this decision. Patient was admitted to telemetry floor and neurology consultation was requested. Patient has a known history of DVT and PE, she was maintained on aspirin and Coumadin, these medications are now on hold. Patient also had evidence of urinary tract infection with sepsis as evidenced by temperature of 102.1 and leukocytosis white blood count was 14.0 and tachycardia was heart rate of 123 Patient will be given a fluid bolus lactic acid level was ordered but not resulted yet, she was given a dose of IV Rocephin in the emergency room Infectious disease consultation was requested, Covid 19 testing will be done due to elevated temperature On 06/23/2019 patient was seen and examined on the medical floor she is somnolent and responsive she answers questions briefly but goes back to sleep she is denying any pain or discomfort at this time she is denying shortness of breath or cough she is still having spikes of temperature to 102.4 neurology input reviewed will restart Coumadin tomorrow. On 06/24/2019 patient was seen and examined on the medical floor she is more alert and responsive today, white blood count is up to 15.4 hemoglobin 6.0 at this time Coumadin will be held again she will receive 1 unit of red blood cell transfusion then recheck CBC. Covid 19 testing is still pending patient is still having spikes of temperature or fever this morning was 100.7 she still has tachycardia and low oxygen saturation of 89% on room air On 06/25/2019 patient was seen and examined on the medical floor she is somnolent opens eyes and responsive to stimuli and answers few questions with yes or no" since her eyes again she is still having some fever liver enzymes are more elevated today, white blood count is improving, she is still maintained on IV antibiotic for urinary tract infection albumin level is lower at 2.7 patient has poor oral intake On 06/26/2019 patient was seen and examined on the medical floor she is more alert and responsive today she is answering questions appropriately there is no fever or chills no headache or dizziness no chest pain or shortness of breath no cough no nausea or vomiting no abdominal pain no diarrhea and no urinary symptoms. On 06/27/2019 patient was seen and examined on the medical floor she is alert responsive to stimuli and answers few questions and closes her eyes there is no fever or chills no headache or dizziness no chest pain no shortness of breath no cough, no nausea or vomiting no abdominal pain no diarrhea no burning was urination no frequency or urgency and no hematuria, white blood count is increasing up to 32.9 patient is maintained on Zosyn and vancomycin, infectious disease following On 06/28/2019 A shouldn't was seen and examined on the medical floor she is alert responsive in no apparent distress there is no fever or chills no headache or dizziness no chest pain no shortness of breath no cough no nausea or vomiting no abdominal pain no diarrhea and no urinary symptoms she is complaining of left lower extremity pain white blood count is still significantly elevated at 31 INR is elevated at 5.7 patient is not on any Coumadin at this time a dose of vitamin K orally will be given On 06/29/2019 patient was seen and examined on the medical floor she is more alert today however she is confused there is no fever or chills no headache or dizziness no chest pain no shortness of breath no cough no nausea or vomiting no abdominal pain no diarrhea and no urinary symptoms, hemoglobin today is down to 6.21 unit of red blood cell transfusion was ordered INR is 2.6 patient is not on any Coumadin she received vitamin K yesterday On 06/30/2019 patient is more alert today and responding to questions appropriately there is no fever or chills no headache or dizziness no chest pain no shortness of breath no cough no nausea or vomiting no abdominal pain no diarrhea and no urinary symptoms patient is complaining of left lower extremity pain she has a large bruise on the left knee area, INR today is 1.5 hemoglobin 8.1 On 07/01/2019 patient was seen and examined on the medical floor she is alert a nd responding to few questions then closes her eyes she is complaining of pain in the left knee area otherwise no complaints she has a large hematoma on the knee, there is no fever or chills no chest pain or shortness of breath no cough no nausea or vomiting no abdominal pain no diarrhea and no urinary symptoms. On 07/02/2019 patient was seen and examined on the medical floor she is alert slightly confused in no apparent distress there is no fever or chills no headache or dizziness no chest pain no shortness of breath no cough no nausea or vomiting no abdominal pain no diarrhea and no urinary symptoms Objective - Vital Signs Vital signs: Vital Signs Temp 98.2 F 07/02/19 06:23 Pulse 92 07/02/19 06:23 Resp 18 07/02/19 08:00 BP 143/86 07/02/19 06:23 Pulse Ox 97 07/02/19 06:23 Intake & Output 07/01/19 07/02/19 07/02/19 18:59 06:59 18:59 Intake Total 1080 Output Total 550 575 Balance 530 -575 Intake: Oral 1080 Output: Urine 550 575 Other: Voiding Method Indwelling Catheter Indwelling Catheter # Bowel Movements 1 1 - Exam In general patient is somnolent responsive answering questions by yes or no and quickly goes back to closing her eyes HEENT with significant trauma and hematoma to the face Neck is supple no JVD no goiter no lymphadenopathy Chest exam reveals a few scattered rhonchi no wheezing Cardiac exam reveals regular heart sounds S1 and S2 with tachycardia no gallops no murmurs Abdomen is soft nontender no organomegaly with normal bowel sounds Extremity exam reveals right above-knee amputation and left was 2+ edema Neurological examination mental status as above otherwise no focal neurological deficit at this time - Labs CBC & Chem 7: 07/02/19 07:45 07/02/19 07:45 Labs: Abnormal Lab Results - Last 24 Hours (Table) 07/02/19 07/02/19 07/02/19 Range/Units 07:45 07:45 07:45 WBC 17.6 H (3.8-10.6) k/uL RBC 2.62 L (3.80-5.40) m/uL Hgb 7.8 L (11.4-16.0) gm/dL Hct 25.7 L (34.0-46.0) % MCHC 30.2 L (31.0-37.0) g/dL RDW 17.5 H (11.5-15.5) % Plt Count 723 H (150-450) k/uL Neutrophils # 15.6 H (1.3-7.7) k/uL Lymphocytes # 0.9 L (1.0-4.8) k/uL PT 16.2 H (9.0-12.0) sec INR 1.6 H (<1.2) Glucose 105 H (74-99) mg/dL Calcium 8.3 L (8.4-10.2) mg/dL Total Bilirubin 2.1 H (0.2-1.3) mg/dL AST 105 H (14-36) U/L ALT 64 H (4-34) U/L Alkaline Phosphatase 211 H (38-126) U/L Total Protein 5.5 L (6.3-8.2) g/dL Albumin 2.3 L (3.5-5.0) g/dL Microbiology - Last 24 Hours (Table) 06/28/19 11:22 Blood Culture - Preliminary Blood No Growth after 72 hours 06/28/19 11:27 Blood Culture - Preliminary Blood No Growth after 72 hours 06/27/19 10:33 Blood Culture - Preliminary Blood No Growth after 96 hours 06/25/19 07:12 Blood Culture - Final Blood No Growth after 144 hours Assessment and Plan Plan: 1. Recent fall with head trauma 5 days ago with computed tomography scan revealing minimal subarachnoid hemorrhage and possible intra-parenchymal hemorrhage in the right periventricular white matter. At this time aspirin and Coumadin are held, neurology consultation was requested. I have discussed this case in details with her son who is the power of litigation attorney associate at this time. Decision at this time is not to transfer patient to a tertiary care center due to the fact that trauma happened 5 days ago and due to current conditions with Covid 19 epidemic. Son is in agreement not to transfer patient. 2. Urinary tract infection with sepsis, urine culture and blood cultures requested, patient started on IV Rocephin, infectious disease consultation requested 3. Mental status changes, due to metabolic encephalopathy related to sepsis, and possibly to intracranial bleeding, will monitor closely 4. Underlying history of hypertention, home blood pressure medication are resumed will monitor 5. Tachycardia, will give fluid bolus 250 mL and reassess medications including metoprolol were resumed 6. Febrile illness was temperature of 102, could be related to urinary tract infection however will check Covid 19 Will consult infectious disease 7. 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 8. Previous history of DVT and PE maintained on Coumadin at this time Coumadin is on hold Will resume when advised by neurology 9. Underlying history of anemia. With worsening anemia during this admission requiring multiple red blood cell transfusion, most likely due to acute bleeding, gastroenterology and hematology are following. 10. Swallowing difficulty, speech therapy following, medication with large pills or medications that are not supposed to be crushed need to be changed due to patient unable to swallow, we change imdur to nitroglycerin patch, discontinue oral iron and give 1 dose of IV iron today, change metoprolol to succinate to metoprolol tartrate twice daily. 11. Protein calorie malnutrition continue with protein supplements orally, we will give 1 dose of IV albumin today followed by IV Lasix due to generalized anasarca At this time patient is admitted to telemetry floor, she is started on IV fluid and IV antibiotics Neurology consultation and infectious disease consultation are requested Coumadin and aspirin are on hold, will recheck INR in a.m. Will check CBC and CMP in a.m. At this time patient remains a full code which was discussed with her son twice during this admission. Prognosis is guarded
[2019-07-02] MEDS: ALBUMIN HUMAN 25% 50 ML in EMPTY BAG 1 BAG IVPB SCH ×2 (12:46→14:16)
[2019-07-02] MEDS: DAPTOmycin 500 MG in SODIUM CHLORIDE 0.9% 50 ML IVPB SCH (17:31)
--- NOTE | 2019-07-02 18:42 | P.PN ---
Subjective Progress Note Date: 07/02/19 Patient from long term, status post fall and head trauma on 06/18/2019. Still has a bruise on the high, recovering well. Patient had right periorbital hematoma. Hematology was consulted for coagulopathy. Evidence of minimal subarachnoid hemorrhage and possible intraparotid parenchymal hemorrhage in the right periventricular white matter. Patient is a history of a DVT and PE and has been on Coumadin and aspirin. Which is on hold now. Patient is weak and lethargic and confused. I have not seen her before though. Discussed with the nurse. Objective - Vital Signs Vital signs: Vital Signs Temp 98.5 F 07/02/19 12:46 Pulse 90 07/02/19 12:46 Resp 16 07/02/19 15:29 BP 115/67 07/02/19 12:46 Pulse Ox 99 07/02/19 12:46 Intake & Output 07/01/19 07/02/19 07/02/19 18:59 06:59 18:59 Intake Total 1080 1860 Output Total 771 761 2959 Balance 530 -575 -740 Intake: Oral 1080 1860 Output: Urine 065 655 4347 Other: Voiding Method Indwelling Catheter Indwelling Catheter # Bowel Movements 1 1 - Exam Patient is hematoma on the eye The patient appeared well nourished and normally developed. Vital signs as documented. Head exam is unremarkable. No scleral icterus or corneal arcus noted. Neck is without jugular venous distension, thyromegaly, or carotid bruits. Carotid upstrokes are brisk bilaterally. Lungs are clear to auscultation and percussion. Cardiac exam reveals the PMI to be normally sized and situated. Rhythm is regular. First and second heart sounds normal. No murmurs, rubs or gallops. Abdominal exam reveals normal bowel sounds, no masses, no organomegaly and no aortic enlargement. Extremities are nonedematous and both femoral and pedal pulses are normal. - Labs CBC & Chem 7: 07/02/19 07:45 07/02/19 07:45 Labs: Abnormal Lab Results - Last 24 Hours (Table) 07/02/19 07/02/19 07/02/19 Range/Units 07:45 07:45 07:45 WBC 17.6 H (3.8-10.6) k/uL RBC 2.62 L (3.80-5.40) m/uL Hgb 7.8 L (11.4-16.0) gm/dL Hct 25.7 L (34.0-46.0) % MCHC 30.2 L (31.0-37.0) g/dL RDW 17.5 H (11.5-15.5) % Plt Count 723 H (150-450) k/uL Neutrophils # 15.6 H (1.3-7.7) k/uL Lymphocytes # 0.9 L (1.0-4.8) k/uL PT 16.2 H (9.0-12.0) sec INR 1.6 H (<1.2) Glucose 105 H (74-99) mg/dL Calcium 8.3 L (8.4-10.2) mg/dL Total Bilirubin 2.1 H (0.2-1.3) mg/dL AST 105 H (14-36) U/L ALT 64 H (4-34) U/L Alkaline Phosphatase 211 H (38-126) U/L Total Protein 5.5 L (6.3-8.2) g/dL Albumin 2.3 L (3.5-5.0) g/dL Microbiology - Last 24 Hours (Table) 06/28/19 11:22 Blood Culture - Preliminary Blood No Growth after 96 hours 06/28/19 11:27 Blood Culture - Preliminary Blood No Growth after 96 hours 06/27/19 10:33 Blood Culture - Preliminary Blood No Growth after 120 hours Assessment and Plan Assessment: Impression and plan: 1. Coagulopathy: S/P fall, head trauma with CT revealing subarachnoid hemorrhage and intraparenchymal hemorrhage in the right periventricular white matter: - Aspirin and Coumadin on hold. Possibility of transfer. - Will need repeat CAT scan to assess hematoma/hemorrhage. - Patient is answering questions minimally. Very sleepy and lethargic. - Patient received vitamin K which include coagulopathy. Continue monitoring for bleeding. Coagulopathy was Coumadin related. - Continue to hold anticoagulation. 2. Normocytic Anemia:Thrombocytopsis: Reactive - Acute on CHronic - Multifactoral - Baseline 01-06 - Acute blood loss from recent fall and possible exacerbated by inflammation - Full work up ordered - Per Neurology AC therapy on hold - Transfuse less than 7 - Most recent hemoglobin is 7.8. 3. HX: PE/DVT: - AC held per Neuro - with current intracranial bleeding anti-coagulation is contraindicated. 4. Leukocytosis: Likely reactive - Possibility of sepsis. Monitor vitals. COVID neg Thank you for allowing us to participate in the care of your patient. Please feel free to call us with any questions. Franky Fairbanks MD Hydrogeologist, [facility] Hematology Oncology [id number] , [address] [place] [address] Office: [phone],
[2019-07-02] MEDS: MULTIVITAMINS, THERA 1 EACH TAB PO SCH (20:22)
[2019-07-02] MEDS: ALLOPURINOL 300 MG TAB PO SCH (20:23)
[2019-07-02] MEDS: FOLIC ACID 1 MG TAB PO SCH (20:23)
[2019-07-03] MEDS: PANTOPRAZOLE 40 MG TABLET PO SCH (05:03)
--- NOTE | 2019-07-03 07:56 | CT ---
EXAMINATION TYPE: CT brain wo con DATE OF EXAM: 07/03/2019 COMPARISON: 06/25/2019, 06/23/2019, and 06/22/2019 CT brain's. HISTORY: Subarachnoid hemorrhage, UTI w/sepsis CT DLP: 1081.60 mGycm Automated exposure control for dose reduction was used. TECHNIQUE: CT scan of the head is performed without contrast. FINDINGS: There is no acute intracranial hemorrhage or midline shift identified. The previously see n subarachnoid hemorrhage and/or intraparenchymal contusion continues to be less pronounced than on t he prior exams of June 22 of June 21. This is subtly marked on series 3 image 38. Large right front al scalp hematoma remains present and measures 1.4 cm in greatest thickness. There is diffuse ventricular and sulcal prominence consistent with diffuse age-related cerebral atrop hy. There is low-attenuation in the periventricular white matter consistent with chronic small vesse l ischemic change. Old lacunar injury of the right cerebellar hemisphere is seen. The globes are int act and the visualized sinuses are clear. Retinal and choroidal calcifications are again seen in th e left globe. Lenses are atrophic. IMPRESSION: 1. Continued decreased conspicuity of the right frontal cortical contusion. No new, acute intracrania l hemorrhage or midline shift. 2. Improving right frontal scalp hematoma previously measuring 1.8 cm in thickness measuring 1.4 cm i n thickness. 2. There is diffuse age-related cerebral atrophy and chronic small vessel ischemic change noted.
[2019-07-03] MEDS: MAGNESIUM OXIDE 400 MG TAB PO SCH ×2 (08:26→21:00)
[2019-07-03] MEDS: METOPROLOL TARTRATE 25 MG TAB PO SCH ×2 (08:26→21:00)
[2019-07-03] MEDS: NITROGLYCERIN 0.3MG/HR PATCH TRANSDERM SCH (08:26)
[2019-07-03] MEDS: CYANOCOBALAMIN 500 MCG TAB PO SCH (08:27)
[2019-07-03] MEDS: PYRIDOXINE 50 MG TAB PO SCH (08:27)
[2019-07-03] MEDS: POTASSIUM BICARBONATE/CIT AC 20 MEQ TABLET.EFF PO SCH (08:27)
[2019-07-03] MEDS: LISINOPRIL 20 MG TAB PO SCH ×2 (08:27→17:48)
[2019-07-03] MEDS: PARoxetine 10 MG TAB PO SCH ×2 (08:27→17:48)
[2019-07-03] MEDS: CALCIUM CARB-VIT D 500MG-200UN 1 EACH TAB PO SCH ×2 (08:27→21:00)
[2019-07-03 08:33] LABS: ALT 78 U/L (4-34); AST 130 U/L (14-36); African American GFR (CKD) >90 (>60 ml/min/1.73 sqM); Albumin 2.6 g/dL (3.5-5.0); Alkaline Phosphatase 217 U/L (38-126); Anion Gap 6 mmol/L; Blood Urea Nitrogen 14 mg/dL (7-17); Calcium 8.5 mg/dL (8.4-10.2); Carbon Dioxide 26 mmol/L (22-30); Chloride 103 mmol/L (98-107); Glucose 95 mg/dL (74-99); Non-African American GFR(CKD) >90 (>60 ml/min/1.73 sqM); Sodium 135 mmol/L (137-145); Total Bilirubin 1.7 mg/dL (0.2-1.3); Total Protein 5.8 g/dL (6.3-8.2)
[2019-07-03 08:39] LABS: Potassium 4.4 mmol/L (3.5-5.1)
--- NOTE | 2019-07-03 08:41 | PN ---
PROGRESS NOTE DATE OF SERVICE: 07/02/2019 REASON FOR FOLLOWUP: 1. Pneumonia. 2. Possible cellulitis. INTERVAL HISTORY: The patient has been afebrile. Patient has been breathing comfortably. The patient is slightly sleepy, lethargic, though arousable. Denies any significant complaint. No vomiting or diarrhea reported. PHYSICAL EXAMINATION: Blood pressure 150/81 with a pulse of 95, temperature 98, she is 100% on 2 L nasal cannula. General description is an elderly female, lying in bed in no distress. RESPIRATORY SYSTEM: Unlabored breathing, clear to auscultation anteriorly. HEART: S1, S2. Regular rate and rhythm. ABDOMEN: Soft, no tenderness. LABS: Hemoglobin 7.8, white count of 17.6 with a BUN of 15, creatinine 0.65. DIAGNOSTIC IMPRESSION AND PLAN: Patient with fever, leukocytosis, likely multifactorial. Did have initial complicated of urinary tract infection, subsequently with pneumonia and possible cellulitis. The patient is currently on Zosyn and vancomycin white count showing a downward trend. To continue monitor clinical course closely. MMODL / IJN: [id number] /
[2019-07-03 09:02] LABS: Anisocytosis Slight; Basophils # (A) 0.1 k/uL (0-0.2); Basophils % (A) 0 %; Eosinophils # (A) 0.2 k/uL (0-0.7); Eosinophils % (A) 1 %; HCT 25.8 % (34.0-46.0); HGB 8.1 gm/dL (11.4-16.0); Hypochromasia Moderate; Lymphocytes % (A) 8 %; MCH 30.1 pg (25.0-35.0); MCHC 31.4 g/dL (31.0-37.0); MCV 95.7 fL (80.0-100.0); Macrocytosis Slight; Mean Platelet Volume 9.1; Monocytes # (A) 0.4 k/uL (0-1.0); Monocytes % (A) 3 %; Neutrophils # (A) 11.7 k/uL (1.3-7.7); Neutrophils % (A) 86 %; Platelet Count 593 k/uL (150-450); Poikilocytosis Slight; WBC 13.7 k/uL (3.8-10.6)
[2019-07-03] MEDS: SODIUM CHLORIDE 0.9% 1,000 ML IV SCH (12:07)
[2019-07-03 12:55] LABS: Albumin 1.91 g/dL (3.80-4.90); Gamma Globulin 0.72 g/dL (0.70-1.50)
--- NOTE | 2019-07-03 13:04 | P.PN ---
Subjective Progress Note Date: 07/03/19 The patient is seen today 07/03/2019 in follow-up on the regular medical floor. She is more awake and alert today. She is taking sips of water. Denying any shortness of breath, cough or congestion. Maintaining O2 saturations up to 100% on 2 L/m per nasal cannula. White count 13.7. Hemoglobin 8.1. Platelet count 593,000. Sodium 135. Potassium 4.4. Creatinine 0.56. AST 130. ALT 78. Objective - Vital Signs Vital signs: Vital Signs Temp 97.8 F 07/03/19 05:05 Pulse 83 07/03/19 05:05 Resp 20 07/03/19 08:00 BP 157/81 07/03/19 05:05 Pulse Ox 100 07/03/19 05:05 Intake & Output 07/02/19 07/03/19 07/03/19 18:59 06:59 18:59 Intake Total 1860 Output Total 2600 1350 Balance -740 -1350 Intake: Oral 1860 Output: Urine 2600 1350 Other: Voiding Method Indwelling Catheter Indwelling Catheter Indwelling Catheter # Bowel Movements 1 - Exam GENERAL EXAM: Awake and alert 73-year-old female patient on 2 L nasal cannula wit O2 saturations 100%. HEAD: Ecchymosis and edema over right eye EYES: Normal reaction of pupils, equal size. NOSE: Clear with pink turbinates. THROAT: No erythema or exudates. NECK: No masses, no JVD. CHEST: No chest wall deformity. LUNGS: Equal air entry with crackles in the right base, diminished. CVS: S1 and S2 normal with no audible murmur, regular rhythm. ABDOMEN: No hepatosplenomegaly, normal bowel sounds, no guarding or rigidity. SPINE: No scoliosis or deformity SKIN: No rashes CENTRAL NERVOUS SYSTEM: Tone is normal in all 4 extremities. EXTREMITIES: Right ggtuk-wqu-onkh amputation. There is no peripheral edema. No clubbing, no cyanosis. Peripheral pulses are intact. - Labs CBC & Chem 7: 07/03/19 07:30 07/03/19 07:30 Labs: Abnormal Lab Results - Last 24 Hours (Table) 06/28/19 07/03/19 07/03/19 Range/Units 11:46 07:30 07:30 WBC 13.7 H (3.8-10.6) k/uL RBC 2.70 L (3.80-5.40) m/uL Hgb 8.1 L (11.4-16.0) gm/dL Hct 25.8 L (34.0-46.0) % RDW 17.0 H (11.5-15.5) % Plt Count 593 H (150-450) k/uL Neutrophils # 11.7 H (1.3-7.7) k/uL Sodium 135 L (137-145) mmol/L Total Bilirubin 1.7 H (0.2-1.3) mg/dL AST 130 H (14-36) U/L ALT 78 H (4-34) U/L Alkaline Phosphatase 217 H (38-126) U/L Total Protein 5.8 L (6.3-8.2) g/dL Albumin 2.6 L (3.5-5.0) g/dL Albumin (PEP) 1.91 L (3.80-4.90) g/dL Ggvqo-4-Uvvplmiiu 0.65 H (0.10-0.40) g/dL Microbiology - Last 24 Hours (Table) 06/27/19 10:33 Blood Culture - Final Blood No Growth after 144 hours 06/28/19 11:22 Blood Culture - Preliminary Blood No Growth after 96 hours 06/28/19 11:27 Blood Culture - Preliminary Blood No Growth after 96 hours Assessment and Plan Assessment: 1 Acute hypoxic respiratory failure secondary to animal atelectasis/infiltrate in the right midlung. 2 E coli urinary tract infection 3 Small faint subarachnoid blot/cortical contusion on the anterior right frontal lobe. No mass effect or midline shift. There is a liquefied enlarged right frontal scalp hematoma 4 Acute anemia requiring 2 units packed red blood cells. Current hemoglobin 8.1. 5 History of PE/DVT 6 Hypertension 7 Degenerative joint disease 8 Obesity 9 History of H. 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 Esposito. Follow-up computed tomography scan of the brain reviewed Stable from the pulmonary standpoint We will continue to follow I, the cosigning physician, performed a history & physical examination of the patient. Lungs sounds few scattered rhonchi more so on the right. Maintaining good O2 saturations in the 90s on 2 L/m per nasal. I discussed the assessment and plan of care with my nurse practitioner, Mechelle Grande. I attest to the above note as dictated by her.
--- NOTE | 2019-07-03 13:41 | P.PN ---
Subjective Progress Note Date: 07/03/19 Principal diagnosis: coagulopathy with bleeding, hemorrhagic CVA and SQ bleeding post trauma In f/u today pt has improved communication-her responses to questions are delayed but appropriate. Her CT head showed stable/slight improvement in size of hemorrhages. Pt denies any bleeding, headache or nausea Objective - Vital Signs Vital signs: Vital Signs Temp 97.8 F 07/03/19 05:05 Pulse 83 07/03/19 05:05 Resp 20 07/03/19 08:00 BP 157/81 07/03/19 05:05 Pulse Ox 100 07/03/19 05:05 Intake & Output 07/02/19 07/03/19 07/03/19 18:59 06:59 18:59 Intake Total 1860 Output Total 2600 1350 Balance -740 -1350 Intake: Oral 1860 Output: Urine 2600 1350 Other: Voiding Method Indwelling Catheter Indwelling Catheter Indwelling Catheter # Bowel Movements 1 - Constitutional General appearance: Present: cooperative, no acute distress, obese - EENT EENT Comment(s): Hematoma above rt eye, bruising stable, showing signs of healing - Respiratory Respiratory: bilateral: CTA - Cardiovascular Heart sounds: normal: S1, S2 - Gastrointestinal General gastrointestinal: Present: normal bowel sounds, soft - Musculoskeletal Musculoskeletal: Present: generalized weakness - Labs CBC & Chem 7: 07/03/19 07:30 07/03/19 07:30 Labs: Abnormal Lab Results - Last 24 Hours (Table) 07/03/19 07/03/19 Range/Units 07:30 07:30 WBC 13.7 H (3.8-10.6) k/uL RBC 2.70 L (3.80-5.40) m/uL Hgb 8.1 L (11.4-16.0) gm/dL Hct 25.8 L (34.0-46.0) % RDW 17.0 H (11.5-15.5) % Plt Count 593 H (150-450) k/uL Neutrophils # 11.7 H (1.3-7.7) k/uL Sodium 135 L (137-145) mmol/L Total Bilirubin 1.7 H (0.2-1.3) mg/dL AST 130 H (14-36) U/L ALT 78 H (4-34) U/L Alkaline Phosphatase 217 H (38-126) U/L Total Protein 5.8 L (6.3-8.2) g/dL Albumin 2.6 L (3.5-5.0) g/dL Microbiology - Last 24 Hours (Table) 06/28/19 11:22 Blood Culture - Preliminary Blood No Growth after 96 hours 06/28/19 11:27 Blood Culture - Preliminary Blood No Growth after 96 hours 06/27/19 10:33 Blood Culture - Preliminary Blood No Growth after 120 hours - Imaging and Cardiology CT Scan - head: report reviewed Assessment and Plan (1) Acute blood loss anemia Narrative/Plan: Last transfusion was 4 days ago. Hemoglobin stable. Based on iron studies drawn post transfusion, anticipate a degree of iron deficiency. Plan is to follow up with patient about 4-6 weeks and recheck iron levels as well as CBC. Current Visit: Yes Status: Acute Priority: High Code(s): D62 - ACUTE POSTHEMORRHAGIC ANEMIA SNOMED Code(s): 902860228 (2) Coagulopathy Narrative/Plan: INR has been reversed. Patient states that she was on Coumadin for pulmonary embolism. Pending stability of bleeding and recent CVA and head injury before considering resuming. Current Visit: Yes Status: Acute Priority: High Code(s): D68.9 - COAGULATION DEFECT, UNSPECIFIED SNOMED Code(s): 79385160 (3) Iron deficiency anemia Narrative/Plan: Patient received a dose of IV iron plus she has received 4 units of blood. Iron studies to be rechecked 4-6 weeks and hemoglobin monitored at least weekly. Recommend endoscopy, non-urgently Current Visit: Yes Status: Acute Priority: High Code(s): D50.9 - IRON DEFICIENCY ANEMIA, UNSPECIFIED SNOMED Code(s): 75216408 (4) Pulmonary embolism Narrative/Plan: From chart review, old documentation shows that in 2013 (1st EMR H&P)when patient was admitted she was on Coumadin at that time for history of DVT and PE so, she has certainly been on prolonged anticoagulation. Due to recent bleeding, hemorrhagic CVA and supratherapeutic INR, anticoagulation is currently on hold. It is unclear if the patient's previous blood clots were provoked, but I would suspect they were due to the admission diagnoses. Unfortunately, patient's health has not significantly improved since that time. She has multiple provoking factors that persist, including chronic inflammation, recurrent infections as well as mobility issues. May have to consider IVC filter if not felt to be safe to resume anticoagulation Current Visit: No Status: Chronic Priority: Medium Code(s): I26.99 - OTHER PULMONARY EMBOLISM WITHOUT ACUTE COR PULMONALE SNOMED Code(s): 07616229 (5) Leukocytosis Narrative/Plan: All neutrophiles. Most likely r/t acute injury and recent infections. Count is coming down reasonably at this time Current Visit: Yes Status: Acute Priority: Medium Code(s): D72.829 - ELEVATED WHITE BLOOD CELL COUNT, UNSPECIFIED SNOMED Code(s): 730969806 (6) Thrombocythemia Narrative/Plan: Reactive and iron deficiency. Slowly improving. No acute intervention. Current Visit: Yes Status: Acute Priority: Medium Code(s): D47.3 - ESSENTIAL (HEMORRHAGIC) THROMBOCYTHEMIA SNOMED Code(s): 6810990 Plan: Doctor attests: I performed a history and physical examination of this patient, developed impression and plan of care, discussed with dictator. I agree with dictators note, documented as a scribe.
--- NOTE | 2019-07-03 15:30 | P.PN ---
Subjective Progress Note Date: 07/03/19 Maria Teresa Celeste is a 73-year-old female resident of [facility] on the [facility] who sustained a fall with head trauma on 06/18/2019 at that time she was sent to emergency room and had a computed tomography scan of the brain and the cervical spine without contrast, she had evidence of a large frontal scalp hematoma and right periorbital hematoma but no intracranial bleeding, she was sent back to [facility] on the [facility]. On 06/22/2019 patient was noticed to have worsening mental status was more somnolence and less responsiveness by the nursing staff she was sent back to emergency room repeat computed tomography scan of the brain revealed evidence of minimal subarachnoid hemorrhage and possible intraparenchymal hemorrhage in the right periventricular white matter. Possibility of transferring patient to a tertiary care center was discussed in details in the emergency room, however due to the fact that trauma happened several days ago, and due to the fact that there is an epidemic of Covid 19 infection which is making it very difficult to transfer patient to [facility], and due to patient age and comorbidities which makes intracranial intervention exceedingly difficult, decision was made not to proceed with transferring patient, her son, (and current power of erisa attorney since her earlier this month) who was in the emergency room was in agreement of this decision. Patient was admitted to telemetry floor and neurology consultation was requested. Patient has a known history of DVT and PE, she was maintained on aspirin and Coumadin, these medications are now on hold. Patient also had evidence of urinary tract infection with sepsis as evidenced by temperature of 102.1 and leukocytosis white blood count was 14.0 and tachycardia was heart rate of 123 Patient will be given a fluid bolus lactic acid level was ordered but not resulted yet, she was given a dose of IV Rocephin in the emergency room Infectious disease consultation was requested, Covid 19 testing will be done due to elevated temperature On 06/23/2019 patient was seen and examined on the medical floor she is somnolent and responsive she answers questions briefly but goes back to sleep she is denying any pain or discomfort at this time she is denying shortness of breath or cough she is still having spikes of temperature to 102.4 neurology input reviewed will restart Coumadin tomorrow. On 06/24/2019 patient was seen and examined on the medical floor she is more alert and responsive today, white blood count is up to 15.4 hemoglobin 6.0 at this time Coumadin will be held again she will receive 1 unit of red blood cell transfusion then recheck CBC. Covid 19 testing is still pending patient is still having spikes of temperature or fever this morning was 100.7 she still has tachycardia and low oxygen saturation of 89% on room air On 06/25/2019 patient was seen and examined on the medical floor she is somnolent opens eyes and responsive to stimuli and answers few questions with yes or no" since her eyes again she is still having some fever liver enzymes are more elevated today, white blood count is improving, she is still maintained on IV antibiotic for urinary tract infection albumin level is lower at 2.7 patient has poor oral intake On 06/26/2019 patient was seen and examined on the medical floor she is more alert and responsive today she is answering questions appropriately there is no fever or chills no headache or dizziness no chest pain or shortness of breath no cough no nausea or vomiting no abdominal pain no diarrhea and no urinary symptoms. On 06/27/2019 patient was seen and examined on the medical floor she is alert responsive to stimuli and answers few questions and closes her eyes there is no fever or chills no headache or dizziness no chest pain no shortness of breath no cough, no nausea or vomiting no abdominal pain no diarrhea no burning was urination no frequency or urgency and no hematuria, white blood count is increasing up to 32.9 patient is maintained on Zosyn and vancomycin, infectious disease following On 06/28/2019 A shouldn't was seen and examined on the medical floor she is alert responsive in no apparent distress there is no fever or chills no headache or dizziness no chest pain no shortness of breath no cough no nausea or vomiting no abdominal pain no diarrhea and no urinary symptoms she is complaining of left lower extremity pain white blood count is still significantly elevated at 31 INR is elevated at 5.7 patient is not on any Coumadin at this time a dose of vitamin K orally will be given On 06/29/2019 patient was seen and examined on the medical floor she is more alert today however she is confused there is no fever or chills no headache or dizziness no chest pain no shortness of breath no cough no nausea or vomiting no abdominal pain no diarrhea and no urinary symptoms, hemoglobin today is down to 6.21 unit of red blood cell transfusion was ordered INR is 2.6 patient is not on any Coumadin she received vitamin K yesterday On 06/30/2019 patient is more alert today and responding to questions appropriately there is no fever or chills no headache or dizziness no chest pain no shortness of breath no cough no nausea or vomiting no abdominal pain no diarrhea and no urinary symptoms patient is complaining of left lower extremity pain she has a large bruise on the left knee area, INR today is 1.5 hemoglobin 8.1 On 07/01/2019 patient was seen and examined on the medical floor she is alert a nd responding to few questions then closes her eyes she is complaining of pain in the left knee area otherwise no complaints she has a large hematoma on the knee, there is no fever or chills no chest pain or shortness of breath no cough no nausea or vomiting no abdominal pain no diarrhea and no urinary symptoms. On 07/02/2019 patient was seen and examined on the medical floor she is alert slightly confused in no apparent distress there is no fever or chills no headache or dizziness no chest pain no shortness of breath no cough no nausea or vomiting no abdominal pain no diarrhea and no urinary symptoms On 07/03/2019 patient was seen and examined on the medical floor she is doing slightly better she is alert and responsive in no apparent distress there is no fever or chills no headache or dizziness no chest pain no shortness of breath no cough no nausea or vomiting no abdominal pain no diarrhea and no urinary symptoms, she is still complaining of left knee pain at this time will check knee x-ray and consult orthopedic surgery Objective - Vital Signs Vital signs: Vital Signs Temp 98.5 F 07/03/19 12:51 Pulse 86 07/03/19 12:51 Resp 16 07/03/19 15:05 BP 171/70 07/03/19 12:51 Pulse Ox 93 L 07/03/19 12:51 Intake & Output 07/02/19 07/03/19 07/03/19 18:59 06:59 18:59 Intake Total 1860 860 Output Total 2600 1350 600 Balance -740 -1350 260 Weight 109.5 kg Intake: Oral 1860 860 Output: Urine 2600 1350 600 Other: Voiding Method Indwelling Catheter Indwelling Catheter Indwelling Catheter # Bowel Movements 1 1 - Exam In general patient is somnolent responsive answering questions by yes or no and quickly goes back to closing her eyes HEENT with significant trauma and hematoma to the face Neck is supple no JVD no goiter no lymphadenopathy Chest exam reveals a few scattered rhonchi no wheezing Cardiac exam reveals regular heart sounds S1 and S2 with tachycardia no gallops no murmurs Abdomen is soft nontender no organomegaly with normal bowel sounds Extremity exam reveals right above-knee amputation and left was 2+ edema Neurological examination mental status as above otherwise no focal neurological deficit at this time - Labs CBC & Chem 7: 07/03/19 07:30 07/03/19 07:30 Labs: Abnormal Lab Results - Last 24 Hours (Table) 06/28/19 07/03/19 07/03/19 Range/Units 11:46 07:30 07:30 WBC 13.7 H (3.8-10.6) k/uL RBC 2.70 L (3.80-5.40) m/uL Hgb 8.1 L (11.4-16.0) gm/dL Hct 25.8 L (34.0-46.0) % RDW 17.0 H (11.5-15.5) % Plt Count 593 H (150-450) k/uL Neutrophils # 11.7 H (1.3-7.7) k/uL Sodium 135 L (137-145) mmol/L Total Bilirubin 1.7 H (0.2-1.3) mg/dL AST 130 H (14-36) U/L ALT 78 H (4-34) U/L Alkaline Phosphatase 217 H (38-126) U/L Total Protein 5.8 L (6.3-8.2) g/dL Albumin 2.6 L (3.5-5.0) g/dL Albumin (PEP) 1.91 L (3.80-4.90) g/dL Waphk-0-Khzxswmwc 0.65 H (0.10-0.40) g/dL Microbiology - Last 24 Hours (Table) 06/28/19 11:22 Blood Culture - Preliminary Blood No Growth after 120 hours 06/28/19 11:27 Blood Culture - Preliminary Blood No Growth after 120 hours 06/27/19 10:33 Blood Culture - Final Blood No Growth after 144 hours Assessment and Plan Plan: 1. Recent fall with head trauma 5 days ago with computed tomography scan revealing minimal subarachnoid hemorrhage and possible intra-parenchymal hemorrhage in the right periventricular white matter. At this time aspirin and Coumadin are held, neurology consultation was requested. I have discussed this case in details with her son who is the power of erisa attorney at this time. Decision at this time is not to transfer patient to a tertiary care center due to the fact that trauma happened 5 days ago and due to current conditions with Covid 19 epidemic. Son is in agreement not to transfer patient. 2. Urinary tract infection with sepsis, urine culture and blood cultures requested, patient started on IV Rocephin, infectious disease consultation requested 3. Mental status changes, due to metabolic encephalopathy related to sepsis, and possibly to intracranial bleeding, will monitor closely 4. Underlying history of hypertention, home blood pressure medication are resumed will monitor 5. Tachycardia, will give fluid bolus 250 mL and reassess medications including metoprolol were resumed 6. Febrile illness was temperature of 102, could be related to urinary tract infection however will check Covid 19 Will consult infectious disease 7. 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 8. Previous history of DVT and PE maintained on Coumadin at this time Coumadin is on hold Will resume when advised by neurology 9. Underlying history of anemia. With worsening anemia during this admission requiring multiple red blood cell transfusion, most likely due to acute bleeding, gastroenterology and hematology are following. 10. Swallowing difficulty, speech therapy following, medication with large pills or medications that are not supposed to be crushed need to be changed due to patient unable to swallow, we change imdur to nitroglycerin patch, discontinue oral iron and give 1 dose of IV iron today, change metoprolol to succinate to metoprolol tartrate twice daily. 11. Protein calorie malnutrition continue with protein supplements orally, we will give 1 dose of IV albumin today followed by IV Lasix due to generalized anasarca 12. Left knee pain with large bruising since admission patient had a fall at the skilled nursing, patient is still complaining of pain at this time, will obtain x-ray Will consult orthopedic surgery. At this time patient is admitted to telemetry floor, she is started on IV fluid and IV antibiotics Neurology consultation and infectious disease consultation are requested Coumadin and aspirin are on hold, will recheck INR in a.m. Will check CBC and CMP in a.m. At this time patient remains a full code which was discussed with her son twice during this admission. Prognosis is guarded
--- NOTE | 2019-07-03 16:00 | XR ---
EXAMINATION TYPE: XR knee limited LT DATE OF EXAM: 07/03/2019 COMPARISON: 06/22/2019 HISTORY: 73-year-old female recent fall, knee pain and bruising TECHNIQUE: 2 views FINDINGS: Prominent bruising along the lateral aspect of the left knee. Tricompartmental degenerative change mo derate to severe in degree. Underlying knee joint effusion difficult to exclude. No obvious displaced fracture on these 2 views. IMPRESSION: Relatively severe tricompartmental osteoarthrosis. Underlying knee joint effusion may be reactive. Pr ominent lateral sided bruising. No obvious acute fracture on these 2 views. If persistent concern, MR I can further evaluate.
[2019-07-03] MEDS: DAPTOmycin 500 MG in SODIUM CHLORIDE 0.9% 50 ML IVPB SCH (17:48)
[2019-07-03] MEDS: FOLIC ACID 1 MG TAB PO SCH (21:00)
[2019-07-03] MEDS: ALLOPURINOL 300 MG TAB PO SCH (21:00)
[2019-07-03] MEDS: MULTIVITAMINS, THERA 1 EACH TAB PO SCH (21:00)
--- NOTE | 2019-07-03 21:06 | P.PN ---
Subjective Progress Note Date: 07/03/19 Principal diagnosis: Elevated liver enzymes, subarachnoid hemorrhage Patient seen lying in bed in no acute complaints. No abdominal pain. Tolerating diet. Objective - Vital Signs Vital signs: Vital Signs Temp 97.8 F 07/03/19 05:05 Pulse 83 07/03/19 05:05 Resp 20 07/03/19 08:00 BP 157/81 07/03/19 05:05 Pulse Ox 100 07/03/19 05:05 Intake & Output 07/02/19 07/03/19 07/03/19 18:59 06:59 18:59 Intake Total 1860 Output Total 2600 1350 Balance -740 -1350 Intake: Oral 1860 Output: Urine 2600 1350 Other: Voiding Method Indwelling Catheter Indwelling Catheter Indwelling Catheter # Bowel Movements 1 - Exam On physical examination, patient appears comfortable in no apparent distress. HEAD: Normocephalic, atraumatic. EYES: No scleral icterus. No conjunctival injection. MOUTH: No lesions, tongue midline. ABDOMEN: Soft, obese. Bowel sounds are positive. No organomegaly. No guarding or rigidity. EXTREMITIES: No pedal edema. SKIN: No rashes, no jaundice. - Labs CBC & Chem 7: 07/03/19 07:30 07/03/19 07:30 Labs: Abnormal Lab Results - Last 24 Hours (Table) 07/03/19 07/03/19 Range/Units 07:30 07:30 WBC 13.7 H (3.8-10.6) k/uL RBC 2.70 L (3.80-5.40) m/uL Hgb 8.1 L (11.4-16.0) gm/dL Hct 25.8 L (34.0-46.0) % RDW 17.0 H (11.5-15.5) % Plt Count 593 H (150-450) k/uL Neutrophils # 11.7 H (1.3-7.7) k/uL Sodium 135 L (137-145) mmol/L Total Bilirubin 1.7 H (0.2-1.3) mg/dL AST 130 H (14-36) U/L ALT 78 H (4-34) U/L Alkaline Phosphatase 217 H (38-126) U/L Total Protein 5.8 L (6.3-8.2) g/dL Albumin 2.6 L (3.5-5.0) g/dL Microbiology - Last 24 Hours (Table) 06/28/19 11:22 Blood Culture - Preliminary Blood No Growth after 96 hours 06/28/19 11:27 Blood Culture - Preliminary Blood No Growth after 96 hours 06/27/19 10:33 Blood Culture - Preliminary Blood No Growth after 120 hours Assessment and Plan (1) Elevated liver enzymes Narrative/Plan: 73-year-old female presented to the hospital with multiple medical complaints. Currently being treated for a UTI she was found to have elevation in her liver enzymes of unknown etiology. Viral hepatitis testing has all been negative. Suspicion is for elevation of liver enzymes secondary to antibiotics, may also be secondary to septicemia or other etiology. Current Visit: Yes Status: Acute Code(s): R74.8 - ABNORMAL LEVELS OF OTHER SERUM ENZYMES SNOMED Code(s): 787422608 (2) Acute blood loss anemia Current Visit: Yes Status: Acute Priority: High Code(s): D62 - ACUTE POSTHEMORRHAGIC ANEMIA SNOMED Code(s): 504232902 Plan: Supportive care Continue to monitor CBC, CMP, LFTs Okay for diet as tolerated Avoid hepatotoxic medications Continue other medical management Thank you for allowing us to participate in care of the patient we will continue to follow
[2019-07-04] MEDS: PANTOPRAZOLE 40 MG TABLET PO SCH (05:04)
--- NOTE | 2019-07-04 05:34 | PN ---
PROGRESS NOTE DATE OF SERVICE: 07/03/2019 REASON FOR FOLLOWUP: UTI and pneumonia. INTERVAL HISTORY: The patient is currently afebrile. Patient has been breathing comfortably. She remains to be weak and lethargic. No nausea. No vomiting or any diarrhea has been reported. PHYSICAL EXAMINATION: Blood pressure 166/90 with a pulse of 107, temperature 97.3. She is 94% on room air. General description is an elderly female lying in bed in no distress. RESPIRATORY SYSTEM: Unlabored breathing, clear to auscultation anteriorly. HEART: S1, S2. Regular rate and rhythm. ABDOMEN: Soft, no tenderness. LABS: Hemoglobin 8.1, white count 13.7, BUN of 14, creatinine 0.56. DIAGNOSTIC IMPRESSION AND PLAN: Patient with fever and white count elevation likely multifactorial. Patient did have a component of urinary tract infection and possible pneumonia and cellulitis. The patient is currently covered. The patient seems to have clinically responded when Daptomycin was added. White count showing a downward trend. She will continue with daptomycin at this point for at least another 10 days to 2 weeks and monitor clinical course closely. She has completed her Zosyn course. Continue with supportive care. MMODL / IJN: [id number] /
[2019-07-04 08:30] LABS: ALT 118 U/L (4-34); African American GFR (CKD) >90 (>60 ml/min/1.73 sqM); Anion Gap 5 mmol/L; Blood Urea Nitrogen 12 mg/dL (7-17); Calcium 8.9 mg/dL (8.4-10.2); Carbon Dioxide 28 mmol/L (22-30); Chloride 101 mmol/L (98-107); Glucose 88 mg/dL (74-99); Non-African American GFR(CKD) >90 (>60 ml/min/1.73 sqM); Sodium 134 mmol/L (137-145); Total Bilirubin 1.3 mg/dL (0.2-1.3); Total Protein 6.8 g/dL (6.3-8.2)
[2019-07-04 08:38] LABS: AST 181 U/L (14-36); Alkaline Phosphatase 224 U/L (38-126); Potassium 4.4 mmol/L (3.5-5.1)
[2019-07-04] MEDS: LISINOPRIL 20 MG TAB PO SCH ×2 (09:00→17:40)
[2019-07-04] MEDS: MAGNESIUM OXIDE 400 MG TAB PO SCH ×2 (09:00→21:19)
[2019-07-04] MEDS: METOPROLOL TARTRATE 25 MG TAB PO SCH ×2 (09:00→21:19)
[2019-07-04] MEDS: CALCIUM CARB-VIT D 500MG-200UN 1 EACH TAB PO SCH ×2 (09:00→21:19)
[2019-07-04] MEDS: PARoxetine 10 MG TAB PO SCH ×2 (09:00→17:40)
[2019-07-04] MEDS: CYANOCOBALAMIN 500 MCG TAB PO SCH (09:00)
[2019-07-04] MEDS: POTASSIUM BICARBONATE/CIT AC 20 MEQ TABLET.EFF PO SCH (09:01)
[2019-07-04] MEDS: NITROGLYCERIN 0.3MG/HR PATCH TRANSDERM SCH (09:01)
[2019-07-04] MEDS: PYRIDOXINE 50 MG TAB PO SCH (09:01)
[2019-07-04 09:53] LABS: Anisocytosis Slight; Basophils # (A) 0.1 k/uL (0-0.2); Basophils % (A) 0 %; Eosinophils # (A) 0.1 k/uL (0-0.7); Eosinophils % (A) 1 %; HCT 26.8 % (34.0-46.0); HGB 8.6 gm/dL (11.4-16.0); Hypochromasia Slight; Lymphocytes # (A) 1.2 k/uL (1.0-4.8); Lymphocytes % (A) 9 %; MCH 29.7 pg (25.0-35.0); MCHC 31.9 g/dL (31.0-37.0); MCV 93.1 fL (80.0-100.0); Mean Platelet Volume 10.7; Monocytes # (A) 0.5 k/uL (0-1.0); Monocytes % (A) 4 %; Neutrophils # (A) 11.1 k/uL (1.3-7.7); Neutrophils % (A) 84 %; Platelet Count 389 k/uL (150-450); Poikilocytosis Slight; RBC 2.88 m/uL (3.80-5.40); RDW 17.3 % (11.5-15.5); WBC 13.1 k/uL (3.8-10.6)
--- NOTE | 2019-07-04 10:39 | P.CNOR ---
History of Present Illness - HPI Consult date: 07/04/19 Consult reason: joint pain History of present illness: Patient is a 73-year-old female who was admitted to [facility] about 2 weeks ago after sustaining a fall and head trauma. Since being admitted to the hospital, she has multiple medical problems that are being monitored by multiple medical specialists. Our orthopedic team was consulted with regards to discomfort involving her left knee. Patient has a known history of a right knee arthroplasty that was done by Dr. Jones back in 2013, she ended up undergoing an [id number]-[id number]-ilhh amputation last year due to chronic infections involving the right knee. Patient does reside at [facility]. She has had issues recently with the wound on her amputated right lower extremity. She is being followed by wound care at this time. Patient was evaluated today at bedside, she is alert. She is able to answer most my questions accurately. According to nursing, it sounds like she is continuing to improve on that aspect of the last few days. She states of the knees and bothering her over the last few days. She denies any previous surgery involving her left knee. 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 MDRO Source:: Right knee Past Surgical History: Hysterectomy, Joint Replacement, Orthopedic Surgery, Tubal Ligation Additional Past Surgical History / Comment(s): Sternocleidomastoidectomy (right), right shoulder rotator cuff, rectocele/cystocele, right foot - Varma's neuroma/hammer toe, left outer forearm arthroscopy and shortening left ulna - plates and screws inserted, right wrist bundle of nerves , right knee arthroscopy/realignment of tendon/tibia/kneecap, R femur rods, R tibia with screws, 07-20-13 right knee replacement/removal and antibiotic spacer placed, 08-10-13 large hematoma removed, BL vitrectomies, BL cataract surgery, right right femur benign tumor removed, left foot bone spur, EGD, colonoscopies,. Right AKA done on Feb 13 per Pt of this year. Past Anesthesia/Blood Transfusion Reactions: Postoperative Nausea & Vomiting (PONV) Additional Past Anesthesia/Blood Transfusion Reaction / Comm: no complications with prior blood transfusion Smoking Status: Never smoker - Past Family History Brother(s) Family Medical History: Cancer, Congestive Heart Failure (CHF) Additional Family Medical History / Comment(s): Heart problems, CABG, oral CA, pacemaker/defib. Father Family Medical History: Congestive Heart Failure (CHF), Hyperlipidemia, Hypertension, Myocardial Infarction (SC) Additional Family Medical History / Comment(s): at 97 years old. Mother Family Medical History: Congestive Heart Failure (CHF), CVA/TIA Additional Family Medical History / Comment(s): Pacemaker - January 16 at age 94 a few days after CVA. Medications and Allergies Home Medications Medication Instructions Recorded Confirmed Type Allopurinol [Zyloprim] 300 mg PO HS@2100 08/21/14 06/22/19 History Multivitamins, Thera [Multivitamin 1 tab PO HS@2100 11/17/15 06/22/19 History (formulary)] Acetaminophen Tab [Tylenol] 650 mg PO Q6H PRN 02/02/18 06/22/19 History Isosorbide Mononitrate ER [Imdur] 30 mg PO DAILY@0900 02/02/18 06/22/19 History Pravastatin Sodium [Pravachol] 20 mg PO HS@2100 02/02/18 06/22/19 History PARoxetine HCL [Paxil] 30 mg PO BID@0900,1700 03/27/18 06/22/19 History Aspirin 325 mg PO DAILY@0900 03/18/19 06/22/19 History Calcium Carbonate/Vitamin D3 1 tab PO BID@0900,209903/18/19 06/22/19 History [Calcium 600-Vit D3 400 Tablet] LORazepam [Ativan] 0.5 mg PO BID@0900,1700 03/18/19 06/22/19 History Ondansetron HCl [Zofran] 4 mg PO Q6H PRN 03/18/19 06/22/19 History Artificial Tears-Hypromellose 1 drop BOTH EYES Q1H PRN 06/18/19 06/22/19 History [Artificial Tear Drops] Cyanocobalamin [Vitamin B-12] 500 mcg PO DAILY@0906/18/19 06/22/19 History Ferrous Sulfate [Feosol] 325 mg PO DAILY@0900 06/18/19 06/22/19 History Folic Acid 1 mg PO HS@209906/18/19 06/22/19 History Lisinopril [Zestril] 20 mg PO BID@0900,1700 06/18/19 06/22/19 History Loperamide [Imodium] 2 mg PO Q6H PRN 06/18/19 06/22/19 History Magnesium Oxide 400 mg PO BID@0900,209906/18/19 06/22/19 History Menthol-Zinc Oxide Oint 1 applic TOPICAL Q6H PRN 06/18/19 06/22/19 History [Calmoseptine Oint] Metoprolol Succinate (ER) [Toprol 50 mg PO DAILY@0906/18/19 06/22/19 History Xl] Pantoprazole Sodium [Protonix] 40 mg PO DAILY@0600 06/18/19 06/22/19 History Potassium Chloride ER [K-Dur 20] 20 meq PO DAILY@0900 06/18/19 06/22/19 History Warfarin [Coumadin] 2 mg PO HS@169906/18/19 06/22/19 History Diazepam [Valium] 5 mg PO Q6H PRN 06/22/19 06/22/19 History Allergies Allergy/AdvReac Type Severity Reaction Status Date / Time adhesive Allergy Rash/Hives Verified 06/22/19 12:21 carbamazepine [From Tegretol] Allergy Rash/Hives Verified 06/22/19 12:21 carisoprodol [From Soma] Allergy lowers b/p Verified 06/22/19 12:21 quickly & passes out corn Allergy Unknown Verified 06/22/19 12:21 doxycycline calcium Allergy Rash/Hives Verified 06/22/19 12:21 [From Vibramycin] doxycycline hyclate Allergy Rash/Hives,vomited Verified 06/22/19 12:21 [From Vibramycin] blood doxycycline monohydrate Allergy Rash/Hives,vomited Verified 06/22/19 12:21 [From Vibramycin] blood erythromycin base Allergy Rash/Hives,vomited Verified 06/22/19 12:21 [From E-Mycin] blood hydrocodone bitartrate Allergy abdominal Verified 06/22/19 12:21 [From Vicodin] pain, diarrhea NSAIDS (Non-Steroidal Allergy Swelling Verified 06/22/19 12:21 Anti-Inflamma piroxicam [From Feldene] Allergy Swelling Verified 06/22/19 12:21 ciprofloxacin [From Cipro] AdvReac Nausea & Verified 06/22/19 12:21 Vomiting wheat AdvReac Diarrhea Verified 06/22/19 12:21 Physical Examination Left lower extremity: No obvious open lesions or sores present Obvious ecchymosis present over the anterior aspect of the knee Unable to appreciate any effusion, no increase in warmth of the skin, no areas of erythema Patient is able to flex the knee to about 90, she is able to fully extend. There is generalized tenderness with palpation of the anterior aspect of the knee Soft, no tenderness with palpation. Sensory exam to light touch at extremities intact Results - Labs Labs: Abnormal Lab Results - Last 24 Hours (Table) 06/28/19 07/04/19 07/04/19 Range/Units 11:46 07:17 07:17 WBC 13.1 H (3.8-10.6) k/uL RBC 2.88 L (3.80-5.40) m/uL Hgb 8.6 L (11.4-16.0) gm/dL Hct 26.8 L (34.0-46.0) % RDW 17.3 H (11.5-15.5) % Neutrophils # 11.1 H (1.3-7.7) k/uL Sodium 134 L (137-145) mmol/L AST 181 H (14-36) U/L ALT 118 H (4-34) U/L Alkaline Phosphatase 224 H (38-126) U/L Albumin 3.0 L (3.5-5.0) g/dL Albumin (PEP) 1.91 L (3.80-4.90) g/dL Uhwvi-7-Vwftsbzoy 0.65 H (0.10-0.40) g/dL Microbiology - Last 24 Hours (Table) 06/28/19 11:22 Blood Culture - Preliminary Blood No Growth after 120 hours 06/28/19 11:27 Blood Culture - Preliminary Blood No Growth after 120 hours 06/27/19 10:33 Blood Culture - Final Blood No Growth after 144 hours H & H 06/22/19 06/24/19 06/24/19 Range/Units 10:39 07:15 17:16 Hgb 8.3 L D 6.0 L* D 6.9 L* (11.4-16.0) gm/dL Hct 25.7 L 18.9 L* 21.8 L (34.0-46.0) % 06/25/19 06/25/19 06/27/19 Range/Units 07:12 21:05 04:51 Hgb 7.9 L 8.1 L 6.7 L* (11.4-16.0) gm/dL Hct 24.4 L 25.7 L 21.7 L (34.0-46.0) % 06/28/19 06/29/19 06/30/19 Range/Units 05:34 07:27 06:55 Hgb 7.3 L 6.2 L* 8.1 L D (11.4-16.0) gm/dL Hct 23.7 L 20.6 L 25.9 L (34.0-46.0) % 07/02/19 07/03/19 07/04/19 Range/Units 07:45 07:30 07:17 Hgb 7.8 L 8.1 L 8.6 L (11.4-16.0) gm/dL Hct 25.7 L 25.8 L 26.8 L (34.0-46.0) % Coagulation 06/22/19 06/23/19 06/24/19 Range/Units 10:39 13:58 07:15 INR 3.0 H 3.0 H 2.8 H (<1.2) 06/25/19 06/28/19 06/29/19 Range/Units 07:12 11:46 07:27 INR 2.9 H 5.7 H* 2.6 H (<1.2) 06/30/19 07/02/19 Range/Units 06:55 07:45 INR 1.5 H 1.6 H (<1.2) Result Diagrams: 07/04/19 07:17 07/04/19 07:17 - Diagnostic results Knee x-ray: report reviewed, image reviewed Assessment and Plan Plan: Imaging: X-rays of the left knee were reviewed. Images demonstrate obvious tricompartmental osteoarthritis. No acute fractures or dislocations appreciated. Assessment: 1. Left knee pain 2. Left knee hematoma/contusion 3. Left knee osteoarthritis Plan: I was able to discuss the case, including with physical exam findings and imaging studies my attending Dr. Garnica. No orthopedic surgical intervention recommended at this time Recommend conservative measures, this to include icing and elevating along with pain medicine. She's not a candidate at this time for any intra-articular cortisone injections due to the urinary tract infection She may be a candidate for this in the future if she continues to develop symptoms of left knee, this will be done in the outpatient setting We'll be available for any further questions regarding the patient's Time with Patient: Less than 30
--- NOTE | 2019-07-04 12:05 | P.PN ---
Subjective Progress Note Date: 07/04/19 Principal diagnosis: coagulopathy with bleeding, hemorrhagic CVA and SQ bleeding post trauma In f/u today pt stable compared to yesterday. She is concerned about being able to return to the [facility] where she resided prior to admit. She has no family locally. Denies OLIVEIRA, JOHANNA, pain, upper extremities are swollen and weak Objective - Vital Signs Vital signs: Vital Signs Temp 98.0 F 07/04/19 04:48 Pulse 91 07/04/19 04:48 Resp 16 07/04/19 08:00 BP 168/75 07/04/19 04:48 Pulse Ox 93 L 07/04/19 04:48 Intake & Output 07/03/19 07/04/19 07/04/19 18:59 06:59 18:59 Intake Total 860 200 Output Total 1000 500 Balance -140 -500 200 Weight 109.5 kg Intake: Oral 860 200 Output: Urine 1000 500 Other: Voiding Method Indwelling Catheter Indwelling Catheter Indwelling Catheter # Bowel Movements 1 1 - Constitutional General appearance: Present: cooperative, no acute distress, obese - EENT Eyes: Present: anicteric sclerae, EOMI ENT: Present: hearing grossly normal - Respiratory Details: respirations are weak, unlabored - Musculoskeletal Musculoskeletal: Present: generalized weakness - Psychiatric Psychiatric: Present: A&O x's 3, appropriate affect - Additional findings Additional findings: Bilateral upper extremities are swollen, R>L-per Nursing improved - Labs CBC & Chem 7: 07/04/19 07:17 07/04/19 07:17 Labs: Abnormal Lab Results - Last 24 Hours (Table) 06/28/19 07/04/19 07/04/19 Range/Units 11:46 07:17 07:17 WBC 13.1 H (3.8-10.6) k/uL RBC 2.88 L (3.80-5.40) m/uL Hgb 8.6 L (11.4-16.0) gm/dL Hct 26.8 L (34.0-46.0) % RDW 17.3 H (11.5-15.5) % Neutrophils # 11.1 H (1.3-7.7) k/uL Sodium 134 L (137-145) mmol/L AST 181 H (14-36) U/L ALT 118 H (4-34) U/L Alkaline Phosphatase 224 H (38-126) U/L Albumin 3.0 L (3.5-5.0) g/dL Albumin (PEP) 1.91 L (3.80-4.90) g/dL Xjytw-1-Pnycaimgr 0.65 H (0.10-0.40) g/dL Microbiology - Last 24 Hours (Table) 06/28/19 11:22 Blood Culture - Preliminary Blood No Growth after 120 hours 06/28/19 11:27 Blood Culture - Preliminary Blood No Growth after 120 hours 06/27/19 10:33 Blood Culture - Final Blood No Growth after 144 hours Assessment and Plan (1) Acute blood loss anemia Narrative/Plan: Last transfusion was 5 days ago. Hemoglobin stable. Based on iron studies drawn post transfusion, anticipate a degree of iron deficiency. Plan is to follow up with patient about 4-6 weeks and recheck iron levels as well as CBC. Current Visit: Yes Status: Acute Priority: High Code(s): D62 - ACUTE POSTHEMORRHAGIC ANEMIA SNOMED Code(s): 909466111 (2) Coagulopathy Narrative/Plan: INR has been reversed. Patient states that she was on Coumadin for pulmonary embolism. Pending stability of bleeding and recent CVA and head injury before considering resuming. Current Visit: Yes Status: Acute Priority: High Code(s): D68.9 - COAGULATION DEFECT, UNSPECIFIED SNOMED Code(s): 32504398 (3) Iron deficiency anemia Narrative/Plan: Patient received a dose of IV iron plus she has received 4 units of blood. Iron studies to be rechecked 4-6 weeks and hemoglobin monitored at least weekly. Recommend endoscopy, non-urgently Current Visit: Yes Status: Acute Priority: High Code(s): D50.9 - IRON DEFICIENCY ANEMIA, UNSPECIFIED SNOMED Code(s): 08871360 (4) Pulmonary embolism Narrative/Plan: From chart review, old documentation shows that in 2013 (1st EMR H&P)when patient was admitted she was on Coumadin at that time for history of DVT and PE so, she has certainly been on prolonged anticoagulation. Due to recent bleeding, hemorrhagic CVA and supratherapeutic INR, anticoagulation is currently on hold. It is unclear if the patient's previous blood clots were provoked, but I would suspect they were due to the admission diagnoses. Unfortunately, patient's health has not significantly improved since that time. She has multiple provoking factors that persist, including chronic inflammation, recurrent infections as well as mobility issues. May have to consider IVC filter if not felt to be safe to resume anticoagulation Current Visit: No Status: Chronic Priority: Medium Code(s): I26.99 - OTHER PULMONARY EMBOLISM WITHOUT ACUTE COR PULMONALE SNOMED Code(s): 43236307 (5) Leukocytosis Narrative/Plan: All neutrophiles. R/T acute injury and recent infections. Count continues to decrease slowly with treatment and recovery Current Visit: Yes Status: Acute Priority: Medium Code(s): D72.829 - ELEVATED WHITE BLOOD CELL COUNT, UNSPECIFIED SNOMED Code(s): 735765753 (6) Thrombocythemia Narrative/Plan: Reactive and iron deficiency. WNL today Current Visit: Yes Status: Resolved Priority: Medium Code(s): D47.3 - ESSENTIAL (HEMORRHAGIC) THROMBOCYTHEMIA SNOMED Code(s): 1614654 Plan: Doctor attests: I performed a history and physical examination of this patient, developed impression and plan of care, discussed with dictator. I agree with dictators note, documented as a scribe.
--- NOTE | 2019-07-04 12:23 | P.PN ---
Subjective Progress Note Date: 07/04/19 Principal diagnosis: The patient is seen today 06/25/2019 in follow-up on the selective care unit. She is currently resting in bed. Arousable but not answering many questions. S he remains quite lethargic and somnolent. Chest x-ray revealed minimal atelectasis/infiltrate in the right midlung possibly related to aspiration. She is maintaining O2 saturations in the 90s on 2 L/m per nasal cannula. She has been febrile at 101 earlier today. She is tachycardic. Blood pressure stable. She is status post 2 units of packed red blood cells this admission. Current hemoglobin 7.9. She does have E. coli urinary tract infection. Blood culture reveals no growth. White count 12.7. Hemoglobin 7.9. INR 2.9. D-dimer 0.59. Sodium 143. Potassium 4.1. Creatinine 0.97. LDH 856. C-reactive protein 400. COVID-19 pending. She is currently on Zosyn. The patient is seen today in 07/04/2019 in follow-up on the regular medical floor. She is currently awake and alert. She is maintaining O2 saturations in the 90s on room air. She's been afebrile. Follow-up blood cultures reveal no growth. White count 13.1. Hemoglobin 8.6. Sodium 134. Potassium 4.4. Creatinine 0.55. AST 181. ALT 188. Objective - Vital Signs Vital signs: Vital Signs Temp 98.0 F 07/04/19 04:48 Pulse 91 07/04/19 04:48 Resp 16 07/04/19 08:00 BP 168/75 07/04/19 04:48 Pulse Ox 93 L 07/04/19 04:48 Intake & Output 07/03/19 07/04/19 07/04/19 18:59 06:59 18:59 Intake Total 860 200 Output Total 1000 500 Balance -140 -500 200 Weight 109.5 kg Intake: Oral 860 200 Output: Urine 1000 500 Other: Voiding Method Indwelling Catheter Indwelling Catheter Indwelling Catheter # Bowel Movements 1 1 - Exam GENERAL EXAM: Awake and alert 73-year-old female patient on room air with O2 saturations 93%. HEAD: Ecchymosis and edema over right eye EYES: Normal reaction of pupils, equal size. NOSE: Clear with pink turbinates. THROAT: No erythema or exudates. NECK: No masses, no JVD. CHEST: No chest wall deformity. LUNGS: Equal air entry with crackles in the right base, diminished. CVS: S1 and S2 normal with no audible murmur, regular rhythm. ABDOMEN: No hepatosplenomegaly, normal bowel sounds, no guarding or rigidity. SPINE: No scoliosis or deformity SKIN: No rashes CENTRAL NERVOUS SYSTEM: Tone is normal in all 4 extremities. EXTREMITIES: Right adqnj-gwv-hreq amputation. There is no peripheral edema. No clubbing, no cyanosis. Peripheral pulses are intact. - Labs CBC & Chem 7: 07/04/19 07:17 07/04/19 07:17 Labs: Abnormal Lab Results - Last 24 Hours (Table) 06/28/19 07/04/19 07/04/19 Range/Units 11:46 07:17 07:17 WBC 13.1 H (3.8-10.6) k/uL RBC 2.88 L (3.80-5.40) m/uL Hgb 8.6 L (11.4-16.0) gm/dL Hct 26.8 L (34.0-46.0) % RDW 17.3 H (11.5-15.5) % Neutrophils # 11.1 H (1.3-7.7) k/uL Sodium 134 L (137-145) mmol/L AST 181 H (14-36) U/L ALT 118 H (4-34) U/L Alkaline Phosphatase 224 H (38-126) U/L Albumin 3.0 L (3.5-5.0) g/dL Albumin (PEP) 1.91 L (3.80-4.90) g/dL Plibm-1-Rahscuecb 0.65 H (0.10-0.40) g/dL Microbiology - Last 24 Hours (Table) 06/28/19 11:22 Blood Culture - Preliminary Blood No Growth after 120 hours 06/28/19 11:27 Blood Culture - Preliminary Blood No Growth after 120 hours 06/27/19 10:33 Blood Culture - Final Blood No Growth after 144 hours Assessment and Plan Assessment: 1 Acute hypoxic respiratory failure secondary to animal atelectasis/infiltrate in the right midlung. Recovered and on room air. 2 E coli urinary tract infection 3 Small faint subarachnoid blot/cortical contusion on the anterior right frontal lobe. No mass effect or midline shift. There is a liquefied enlarged right frontal scalp hematoma 4 Acute anemia requiring 2 units packed red blood cells. Current hemoglobin 8.6. 5 History of PE/DVT 6 Hypertension 7 Degenerative joint disease 8 Obesity 9 History of H. 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 Esposito. Stable from the pulmonary standpoint Discharge planning in place We will continue to follow I, the cosigning physician, performed a history & physical examination of the patient. Lungs sounds few scattered rhonchi more so on the right. Maintaining good O2 saturations in the 90s on 2 L/m per nasal. I discussed the assessment and plan of care with my nurse practitioner, Mechelle Grande. I attest to the above note as dictated by her.
--- NOTE | 2019-07-04 13:49 | P.PN ---
Subjective Progress Note Date: 07/04/19 Maria Teresa Celeste is a 73-year-old female resident of [facility] on the [facility] who sustained a fall with head trauma on 06/18/2019 at that time she was sent to emergency room and had a computed tomography scan of the brain and the cervical spine without contrast, she had evidence of a large frontal scalp hematoma and right periorbital hematoma but no intracranial bleeding, she was sent back to [facility] on the [facility]. On 06/22/2019 patient was noticed to have worsening mental status was more somnolence and less responsiveness by the nursing staff she was sent back to emergency room repeat computed tomography scan of the brain revealed evidence of minimal subarachnoid hemorrhage and possible intraparenchymal hemorrhage in the right periventricular white matter. Possibility of transferring patient to a tertiary care center was discussed in details in the emergency room, however due to the fact that trauma happened several days ago, and due to the fact that there is an epidemic of Covid 19 infection which is making it very difficult to transfer patient to [facility], and due to patient age and comorbidities which makes intracranial intervention exceedingly difficult, decision was made not to proceed with transferring patient, her son, (and current power of bankruptcy attorney since her earlier this month) who was in the emergency room was in agreement of this decision. Patient was admitted to telemetry floor and neurology consultation was requested. Patient has a known history of DVT and PE, she was maintained on aspirin and Coumadin, these medications are now on hold. Patient also had evidence of urinary tract infection with sepsis as evidenced by temperature of 102.1 and leukocytosis white blood count was 14.0 and tachycardia was heart rate of 123 Patient will be given a fluid bolus lactic acid level was ordered but not resulted yet, she was given a dose of IV Rocephin in the emergency room Infectious disease consultation was requested, Covid 19 testing will be done due to elevated temperature On 06/23/2019 patient was seen and examined on the medical floor she is somnolent and responsive she answers questions briefly but goes back to sleep she is denying any pain or discomfort at this time she is denying shortness of breath or cough she is still having spikes of temperature to 102.4 neurology input reviewed will restart Coumadin tomorrow. On 06/24/2019 patient was seen and examined on the medical floor she is more alert and responsive today, white blood count is up to 15.4 hemoglobin 6.0 at this time Coumadin will be held again she will receive 1 unit of red blood cell transfusion then recheck CBC. Covid 19 testing is still pending patient is still having spikes of temperature or fever this morning was 100.7 she still has tachycardia and low oxygen saturation of 89% on room air On 06/25/2019 patient was seen and examined on the medical floor she is somnolent opens eyes and responsive to stimuli and answers few questions with yes or no" since her eyes again she is still having some fever liver enzymes are more elevated today, white blood count is improving, she is still maintained on IV antibiotic for urinary tract infection albumin level is lower at 2.7 patient has poor oral intake On 06/26/2019 patient was seen and examined on the medical floor she is more alert and responsive today she is answering questions appropriately there is no fever or chills no headache or dizziness no chest pain or shortness of breath no cough no nausea or vomiting no abdominal pain no diarrhea and no urinary symptoms. On 06/27/2019 patient was seen and examined on the medical floor she is alert responsive to stimuli and answers few questions and closes her eyes there is no fever or chills no headache or dizziness no chest pain no shortness of breath no cough, no nausea or vomiting no abdominal pain no diarrhea no burning was urination no frequency or urgency and no hematuria, white blood count is increasing up to 32.9 patient is maintained on Zosyn and vancomycin, infectious disease following On 06/28/2019 A shouldn't was seen and examined on the medical floor she is alert responsive in no apparent distress there is no fever or chills no headache or dizziness no chest pain no shortness of breath no cough no nausea or vomiting no abdominal pain no diarrhea and no urinary symptoms she is complaining of left lower extremity pain white blood count is still significantly elevated at 31 INR is elevated at 5.7 patient is not on any Coumadin at this time a dose of vitamin K orally will be given On 06/29/2019 patient was seen and examined on the medical floor she is more alert today however she is confused there is no fever or chills no headache or dizziness no chest pain no shortness of breath no cough no nausea or vomiting no abdominal pain no diarrhea and no urinary symptoms, hemoglobin today is down to 6.21 unit of red blood cell transfusion was ordered INR is 2.6 patient is not on any Coumadin she received vitamin K yesterday On 06/30/2019 patient is more alert today and responding to questions appropriately there is no fever or chills no headache or dizziness no chest pain no shortness of breath no cough no nausea or vomiting no abdominal pain no diarrhea and no urinary symptoms patient is complaining of left lower extremity pain she has a large bruise on the left knee area, INR today is 1.5 hemoglobin 8.1 On 07/01/2019 patient was seen and examined on the medical floor she is alert a nd responding to few questions then closes her eyes she is complaining of pain in the left knee area otherwise no complaints she has a large hematoma on the knee, there is no fever or chills no chest pain or shortness of breath no cough no nausea or vomiting no abdominal pain no diarrhea and no urinary symptoms. On 07/02/2019 patient was seen and examined on the medical floor she is alert slightly confused in no apparent distress there is no fever or chills no headache or dizziness no chest pain no shortness of breath no cough no nausea or vomiting no abdominal pain no diarrhea and no urinary symptoms On 07/03/2019 patient was seen and examined on the medical floor she is doing slightly better she is alert and responsive in no apparent distress there is no fever or chills no headache or dizziness no chest pain no shortness of breath no cough no nausea or vomiting no abdominal pain no diarrhea and no urinary symptoms, she is still complaining of left knee pain at this time will check knee x-ray and consult orthopedic surgery On 07/04/2019 patient was seen and examined on the medical floor she is drowsy but responsive, answering a few questions at the time then closes her eyes, th ere is no fever or chills no headache or dizziness no chest pain no shortness of breath no cough no nausea or vomiting no abdominal pain no diarrhea and no urinary symptoms, patient mostly complaining of left lower extremity pain Objective - Vital Signs Vital signs: Vital Signs Temp 98.0 F 07/04/19 04:48 Pulse 91 07/04/19 04:48 Resp 16 07/04/19 08:00 BP 168/75 07/04/19 04:48 Pulse Ox 93 L 07/04/19 04:48 Intake & Output 07/03/19 07/04/19 07/04/19 18:59 06:59 18:59 Intake Total 860 200 Output Total 1000 500 Balance -140 -500 200 Weight 109.5 kg Intake: Oral 860 200 Output: Urine 1000 500 Other: Voiding Method Indwelling Catheter Indwelling Catheter Indwelling Catheter # Bowel Movements 1 1 - Exam In general patient is somnolent responsive answering questions by yes or no and quickly goes back to closing her eyes HEENT with significant trauma and hematoma to the face Neck is supple no JVD no goiter no lymphadenopathy Chest exam reveals a few scattered rhonchi no wheezing Cardiac exam reveals regular heart sounds S1 and S2 with tachycardia no gallops no murmurs Abdomen is soft nontender no organomegaly with normal bowel sounds Extremity exam reveals right above-knee amputation and left was 2+ edema, slight ly improving Neurological examination mental status as above otherwise no focal neurological deficit at this time - Labs CBC & Chem 7: 07/04/19 07:17 07/04/19 07:17 Labs: Abnormal Lab Results - Last 24 Hours (Table) 07/04/19 07/04/19 Range/Units 07:17 07:17 WBC 13.1 H (3.8-10.6) k/uL RBC 2.88 L (3.80-5.40) m/uL Hgb 8.6 L (11.4-16.0) gm/dL Hct 26.8 L (34.0-46.0) % RDW 17.3 H (11.5-15.5) % Neutrophils # 11.1 H (1.3-7.7) k/uL Sodium 134 L (137-145) mmol/L AST 181 H (14-36) U/L ALT 118 H (4-34) U/L Alkaline Phosphatase 224 H (38-126) U/L Albumin 3.0 L (3.5-5.0) g/dL Microbiology - Last 24 Hours (Table) 06/28/19 11:22 Blood Culture - Preliminary Blood No Growth after 120 hours 06/28/19 11:27 Blood Culture - Preliminary Blood No Growth after 120 hours 06/27/19 10:33 Blood Culture - Final Blood No Growth after 144 hours Assessment and Plan Plan: 1. Recent fall with head trauma 5 days ago with computed tomography scan revealing minimal subarachnoid hemorrhage and possible intra-parenchymal hemorrhage in the right periventricular white matter. At this time aspirin and Coumadin are held, neurology consultation was requested. I have discussed this case in details with her son who is the power of bankruptcy attorney at this time. Decision at this time is not to transfer patient to a tertiary care center due to the fact that trauma happened 5 days ago and due to current conditions with Covid 19 epidemic. Son is in agreement not to transfer patient. 2. Urinary tract infection with sepsis, urine culture and blood cultures requested, patient started on IV Rocephin, infectious disease consultation requested 3. Mental status changes, due to metabolic encephalopathy related to sepsis, and possibly to intracranial bleeding, will monitor closely 4. Underlying history of hypertention, home blood pressure medication are resumed will monitor 5. Tachycardia, will give fluid bolus 250 mL and reassess medications including metoprolol were resumed 6. Febrile illness was temperature of 102, could be related to urinary tract infection however will check Covid 19 Will consult infectious disease 7. 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 8. Previous history of DVT and PE maintained on Coumadin at this time Coumadin is on hold Will resume when advised by neurology 9. Underlying history of anemia. With worsening anemia during this admission requiring multiple red blood cell transfusion, most likely due to acute bleeding , gastroenterology and hematology are following. 10. Swallowing difficulty, speech therapy following, medication with large pills or medications that are not supposed to be crushed need to be changed due to patient unable to swallow, we change imdur to nitroglycerin patch, discontinue oral iron and give 1 dose of IV iron today, change metoprolol to succinate to metoprolol tartrate twice daily. 11. Protein calorie malnutrition continue with protein supplements orally, we will give 1 dose of IV albumin today followed by IV Lasix due to generalized anasarca 12. Left knee pain with large bruising since admission patient had a fall at the assisted, patient is still complaining of pain at this time, will obtain x-ray Will consult orthopedic surgery. At this time patient is admitted to telemetry floor, she is started on IV fluid and IV antibiotics Neurology consultation and infectious disease consultation are requested Coumadin and aspirin are on hold, will recheck INR in a.m. Will check CBC and CMP in a.m. At this time patient remains a full code which was discussed with her son twice during this admission. Prognosis is guarded
--- NOTE | 2019-07-04 14:29 | P.PN ---
Subjective Progress Note Date: 07/04/19 Patient much more alert and awake, as compared to last examination from 06/23/2019. Speech is much more clear. Less mumbling. Encephalopathy much improved. Objective - Vital Signs Vital signs: Vital Signs Temp 98.7 F 07/04/19 12:36 Pulse 88 07/04/19 12:36 Resp 18 07/04/19 12:36 BP 164/86 07/04/19 12:36 Pulse Ox 94 L 07/04/19 12:36 Intake & Output 07/03/19 07/04/19 07/04/19 18:59 06:59 18:59 Intake Total 860 300 Output Total 1000 500 Balance -140 -500 300 Weight 109.5 kg Intake: Oral 860 300 Output: Urine 1000 500 Other: Voiding Method Indwelling Catheter Indwelling Catheter Indwelling Catheter # Bowel Movements 1 1 - Exam Patient's right frontal subcutaneous hematoma has much improved. Patient knows it is June and the year is 2019. She states she is in [facility], but could not tell the name of the building she is in. Speech is clear. No aphasia or dysarthria. Patient moves extremities equally. - Labs CBC & Chem 7: 07/04/19 07:17 07/04/19 07:17 Labs: Abnormal Lab Results - Last 24 Hours (Table) 07/04/19 07/04/19 Range/Units 07:17 07:17 WBC 13.1 H (3.8-10.6) k/uL RBC 2.88 L (3.80-5.40) m/uL Hgb 8.6 L (11.4-16.0) gm/dL Hct 26.8 L (34.0-46.0) % RDW 17.3 H (11.5-15.5) % Neutrophils # 11.1 H (1.3-7.7) k/uL Sodium 134 L (137-145) mmol/L AST 181 H (14-36) U/L ALT 118 H (4-34) U/L Alkaline Phosphatase 224 H (38-126) U/L Albumin 3.0 L (3.5-5.0) g/dL Microbiology - Last 24 Hours (Table) 06/28/19 11:22 Blood Culture - Final Blood No Growth after 144 hours 06/28/19 11:27 Blood Culture - Final Blood No Growth after 144 hours 06/27/19 10:33 Blood Culture - Final Blood No Growth after 144 hours Assessment and Plan Assessment: * Altered mental status, likely due to metabolic encephalopathy. Patient has probable acute UTI. Patient possibly has underlying cognitive impairment. * Abnormal CAT scan with evidence of very small right subarachnoid hemorrhage, and small intraparenchymal hemorrhage with no mass effect or midline shift. Patient had a fall on 06/18/2019. * History of DVT and PE. * History of right above-knee amputation * Acute UTI * Anemia. * Vitamin B6 deficiency Plan: * Repeat computed tomography scan of head from 07/03/2019 was reviewed. It is essentially unremarkable. The hypodensity seen in the right frontal region has been present in the previous CT scans of head from March 2019, and is likely not contusion, perhaps some calcification. * May resume Coumadin or any antiplatelet medications, as would be indicated to treat her other medical conditions. No neurological contraindications, unless contraindicated from medical standpoint (?anemia). * Treatment of UTI as per IM/ID. * Continue vitamin B6 50 mg daily. Continue other vitamins. * Neurologically clear for discharge.
[2019-07-04] MEDS: SODIUM CHLORIDE 0.9% 1,000 ML IV SCH (15:12)
[2019-07-04 15:51] LABS: Alpha Fetoprotein, Tumor Mkr <2.5 ng/mL (0.0-7.9)
[2019-07-04] MEDS: DAPTOmycin 500 MG in SODIUM CHLORIDE 0.9% 50 ML IVPB SCH (17:40)
[2019-07-04] MEDS: MULTIVITAMINS, THERA 1 EACH TAB PO SCH (21:19)
[2019-07-04] MEDS: FOLIC ACID 1 MG TAB PO SCH (21:19)
[2019-07-04] MEDS: ALLOPURINOL 300 MG TAB PO SCH (21:19)
[2019-07-05] MEDS: PANTOPRAZOLE 40 MG TABLET PO SCH (05:09)
--- NOTE | 2019-07-05 06:21 | PN ---
PROGRESS NOTE DATE OF SERVICE: 07/04/2019 REASON FOR FOLLOWUP: Right BKA stump wound and cellulitis. INTERVAL HISTORY: The patient is currently afebrile. She is breathing comfortably on room air. Denies any chest pain or cough. No abdominal pain or diarrhea. PHYSICAL EXAMINATION: Blood pressure 168/96 with pulse 105, temperature 98.6. She is 93% on room air. General description is an elderly female lying in bed in no distress. RESPIRATORY SYSTEM: Unlabored breathing, clear to auscultation anteriorly. HEART: S1, S2. Regular rate and rhythm. ABDOMEN: Soft, no tenderness. Right BKA stump is currently dressed. No obvious drainage on the dressing. LABS: Hemoglobin 8.6, white count 13.1, BUN of 12, creatinine 0.55. DIAGNOSTIC IMPRESSION AND PLAN: 1. Patient with an Escherichia coli urinary tract infection and pneumonia, adequately treated. Currently off Zosyn. 2. Right lower extremity wound, possible cellulitis clinically responded to daptomycin to continue to finish a 2-week course of therapy. Continue supportive care. MMODL / IJN: [id number] /
[2019-07-05 07:05] LABS: Anisocytosis Slight; Basophils % (A) 0 %; Eosinophils # (A) 0.2 k/uL (0-0.7); Eosinophils % (A) 1 %; HCT 26.8 % (34.0-46.0); HGB 8.4 gm/dL (11.4-16.0); Hypochromasia Moderate; Lymphocytes # (A) 1.1 k/uL (1.0-4.8); Lymphocytes % (A) 9 %; MCH 30.2 pg (25.0-35.0); MCHC 31.5 g/dL (31.0-37.0); MCV 95.6 fL (80.0-100.0); Macrocytosis Slight; Mean Platelet Volume 7.1; Monocytes # (A) 0.4 k/uL (0-1.0); Monocytes % (A) 4 %; Neutrophils # (A) 10.6 k/uL (1.3-7.7); Neutrophils % (A) 84 %; Platelet Count 685 k/uL (150-450); Poikilocytosis Slight; RDW 17.2 % (11.5-15.5); WBC 12.6 k/uL (3.8-10.6)
[2019-07-05 07:52] LABS: ALT 120 U/L (4-34); AST 144 U/L (14-36); African American GFR (CKD) >90 (>60 ml/min/1.73 sqM); Albumin 2.8 g/dL (3.5-5.0); Alkaline Phosphatase 211 U/L (38-126); Anion Gap 8 mmol/L; Blood Urea Nitrogen 12 mg/dL (7-17); Calcium 8.7 mg/dL (8.4-10.2); Carbon Dioxide 27 mmol/L (22-30); Chloride 98 mmol/L (98-107); Glucose 95 mg/dL (74-99); Non-African American GFR(CKD) >90 (>60 ml/min/1.73 sqM); Potassium 4.1 mmol/L (3.5-5.1); Sodium 133 mmol/L (137-145); Total Protein 6.3 g/dL (6.3-8.2)
[2019-07-05] MEDS: MAGNESIUM OXIDE 400 MG TAB PO SCH ×2 (08:20→21:24)
[2019-07-05] MEDS: CYANOCOBALAMIN 500 MCG TAB PO SCH (08:20)
[2019-07-05] MEDS: LISINOPRIL 20 MG TAB PO SCH ×2 (08:20→16:26)
[2019-07-05] MEDS: PARoxetine 10 MG TAB PO SCH ×2 (08:20→16:26)
[2019-07-05] MEDS: METOPROLOL TARTRATE 25 MG TAB PO SCH ×2 (08:20→21:24)
[2019-07-05] MEDS: CALCIUM CARB-VIT D 500MG-200UN 1 EACH TAB PO SCH ×2 (08:21→21:24)
[2019-07-05] MEDS: POTASSIUM BICARBONATE/CIT AC 20 MEQ TABLET.EFF PO SCH (08:21)
[2019-07-05] MEDS: PYRIDOXINE 50 MG TAB PO SCH (08:21)
[2019-07-05] MEDS: NITROGLYCERIN 0.3MG/HR PATCH TRANSDERM SCH (08:21)
[2019-07-05 11:02] LABS: Ceruloplasmin 48.4 mg/dL (20.0-60.0)
[2019-07-05 11:36] LABS: Liver/Kidney Microsome Antibod 1.7 UNITS (<=20)
--- NOTE | 2019-07-05 12:24 | P.PN ---
Subjective Progress Note Date: 07/05/19 Principal diagnosis: On 06/26/2019 patient seen in follow-up on selective care unit. She ruled out for Covid 19. Patient is confused, but she opens eyes to voice and verbal and tactile stimulation, her speech times is incomprehensible, does not appear to be in any acute respiratory distress, she is on 2 L of oxygen with a pulse ox of 96%, hemodynamically stable, she is afebrile. She has a large right supraorbital hematoma, and she has mild bruising in the periorbital areas of her bilateral face. Patient has been febrile over the last 24 hours, with a T- max of 10 1F. Apparently rapid response team was called last night for concern of fever, increased respiratory rate, and decreased level of consciousness, a CT brain was repeated showing no acute intracranial abnormality, large frontal scalp hematoma, and there was no change compared to previous exam. Vital signs are stable, her blood gas showed pO2 of 110, pCO2 of 40, and pH of 7.43, this was done on FiO2 of 20%, and did not show any abnormality with the ventilation. Today's chest x-ray has been reviewed showing persistent atelectasis in the right lower lobe and/or infiltrate, no significant change. ID service is following, and patient is on antibiotics in the form of Zosyn and vancomycin, urine culture showed E. coli. On 06/27/2019 patient seen in follow-up on selective care unit, she is more leth argic on today's exam, she does arouse to vigorous tactile stimulation, opens eyes briefly, does not maintain eye contact, low-grade fevers today, room air pulse ox is 96-98%, hemodynamically patient is stable, she remains on a combination of Zosyn and vancomycin, urine culture showed E. coli, view of her decreased mentation, and increase in her white blood cell count on today's labs will obtain another set of blood cultures, and the blood gas. No nausea or vomiting, no complaints of abdominal pain, today's hemoglobin is 6.7 with no obvious signs of bleeding, right supraorbital hematoma appears to be unchanged, blood gas was reviewed, showing pO2 of 69, pCO2 of 38, and pH of 7.41, was done on FiO2 of 28%, showing acute hypoxemia requiring supplemental oxygen, but no ventilation abnormality. The rest of the labs have been reviewed showing sodium of 145, potassium is 4.4, Court is 118, CO2 is 21, BUN is 33, creatinine is 1.06. Liver enzymes are relatively stable, Coumadin and aspirin remain on hold. Overall prognosis is extremely guarded, and attending physician will discuss patient's plan of care, and goals of treatment with patient's son who is the guardian On 06/28/2019 patient seen in follow-up on selective care unit, she is resting in bed, she is febrile with a temp of 99.5 axillary, and patient was already given antipyretics, her respirations are tachypneic, however there are no wheezes, or rhonchi, she is on 2 L of oxygen and the pulse ox of 96-99%, hemodynamically patient is stable, slightly tachycardic, tachypneic as mentioned above. Yesterday we send a set of blood cultures and are pending for now. Right awqnh-[id number] amputation stump wound appears to be clean dry, : Care is being done, ID service is following, patient is on a combination of Zosyn and vancomycin, oral intake has been extremely poor, we will obtain speech evaluation consultation. And is lethargic, but opens eyes to verbal stimulation, she is not following commands, she is not maintaining eye contact, today's labs have been reviewed showing slightly decreased white blood cell, wit h a WBC of 31.8, hemoglobin of 7.3, patient did receive a unit of blood yesterday for hemoglobin of 6.7, and her has been no obvious source of bleeding, platelet 642, INR today is 5.7, sodium is 143, potassium is 4.3, chloride is 1:15, CO2 is 22, BUN is 21, creatinine 0.78, liver enzymes are trending down, LDH remains elevated at 646, and patient was tested negative for cold mid 19, neurology is following, anticoagulation remains on hold On 06/29/2019 patient seen in follow-up on general medical floor. She is much more awake on today's exam, she is looking better, doesn't seem to be in any a cute distress, no evidence of respiratory difficulty, she is on 2 L of oxygen with a pulse ox of 99%, her last episode of fever was yesterday at around 12:00, she's been afebrile since. Her white blood cell count is slightly improved on today's exam, with the white blood cell count is 28.1, hemoglobin is 6.2, with no obvious source of bleeding, INR today is 2.6, sodium is 141, potassium 4.4, chloride is 1:15, B UN is 21, creatinine 0.72, total bilirubin is 1.9, AST is 51, ALT is 40, [place] phosphatase is 178. Patient is on a combination of antibiotics that includes Zosyn and vancomycin, urine culture has been sent, and is pending at this time, follow blood cultures have been negative, yesterday's urinalysis was sent showing evidence of urinary tract infection, with large amount of leukocyte esterase, 74 of white blood cell counts and white blood cell in clumps. Patient is being evaluated by GI service in regards to the LFTs, and she is being managed medically at this point, Dr. Nacho Kulkarni from infectious diseases on, patient denies any abdominal pain, no nausea vomiting, no diarrhea. Breathing seems to be comfortable, lung sounds are clear. On 07/05/2019 patient seen in follow-up on the general medical floor, she is resting comfortably in bed, she is awake, she is answering some simple questions, room air pulse ox is 92-93%, she denies any acute distress, she's been afebrile, hemodynamically stable, lung sounds reveal clear diminished breath sounds. Today's labs have been reviewed, with blood cell count is 12.6, hemoglobin is 8.4, platelet count of 685, electrolytes and renal profile was unremarkable. Patient is on IV antibiotics in the form of daptomycin for right lower extremity wound and cellulitis and patient is supposed to finish 2 week course. Patient has been treated with Zosyn for urinary tract infection and possibly of pneumonia, most recent chest x-ray was done on 06/26/2019 which showed a persistent atelectasis in the right lower lobe and/or infiltrate. Likely patient denies any shortness of breath, no cough or congestion. Neurology is following, patient remains off anticoagulation, for recent history of subarachnoid hemorrhage. Patient was previously on Coumadin for history of DVT and PE, restless surgery has been consulted for possibility of IVC filter in view of patient not being a candidate for anticoagulation. Objective - Vital Signs Vital signs: Vital Signs Temp 98.5 F 07/05/19 06:16 Pulse 107 H 07/05/19 06:16 Resp 20 07/05/19 08:00 BP 161/96 07/05/19 06:16 Pulse Ox 92 L 07/05/19 06:16 Intake & Output 07/04/19 07/05/19 07/05/19 18:59 06:59 18:59 Intake Total 300 Output Total 700 700 Balance -400 -700 Intake: Oral 300 Output: Urine 700 700 Other: Voiding Method Indwelling Catheter Indwelling Catheter Indwelling Catheter # Bowel Movements 0 - Exam GENERAL EXAM: Alert, 73-year-old white female, calm and comfortable, she is on room air, with a pulse ox of 92-93%, answering simple questions, but speech is slow, and at times difficult to understand, afebrile with extensive bruising in the periorbital area, and a large hematoma above the right eye comfortable in no apparent distress. HEAD: Normocephalic/atraumatic. EYES: Normal reaction of pupils, equal size. Conjunctiva pink, sclera white. NOSE: Clear with pink turbinates. THROAT: No erythema or exudates. NECK: No masses, no JVD, no thyroid enlargement, no adenopathy. CHEST: No chest wall deformity. Symmetrical expansion. LUNGS: Equal air entry with no crackles, wheeze, rhonchi or dullness. CVS: Regular rate and rhythm, normal S1 and S2, no gallops, no murmurs, no rubs ABDOMEN: Soft, nontender. No hepatosplenomegaly, normal bowel sounds, no guarding or rigidity. EXTREMITIES: No clubbing, no edema, no cyanosis, 2+ pulses and upper and lower extremities. MUSCULOSKELETAL: Muscle strength and tone normal. Right [id number] amputation, there is a wound on the right stump, and the wound bed is clean, there is a silver dressing on, with no significant exudate SPINE: No scoliosis or deformity SKIN: No rashes CENTRAL NERVOUS SYSTEM: Alert and oriented -1. PSYCHIATRIC: Alert and oriented -1. Patient is confused - Labs CBC & Chem 7: 07/05/19 06:35 07/05/19 06:35 Labs: Abnormal Lab Results - Last 24 Hours (Table) 07/04/19 07/05/19 07/05/19 Range/Units 07:17 06:35 06:35 WBC 12.6 H (3.8-10.6) k/uL RBC 2.80 L (3.80-5.40) m/uL Hgb 8.4 L (11.4-16.0) gm/dL Hct 26.8 L (34.0-46.0) % RDW 17.2 H (11.5-15.5) % Plt Count 685 H (150-450) k/uL Neutrophils # 10.6 H (1.3-7.7) k/uL Sodium 133 L (137-145) mmol/L AST 144 H (14-36) U/L ALT 120 H (4-34) U/L Alkaline Phosphatase 211 H (38-126) U/L Albumin 2.8 L (3.5-5.0) g/dL [id number] 311.0 H (99.0-242.0) mg/dL Microbiology - Last 24 Hours (Table) 06/28/19 11:22 Blood Culture - Final Blood No Growth after 144 hours 06/28/19 11:27 Blood Culture - Final Blood No Growth after 144 hours Assessment and Plan Plan: Assessment: 1 Acute hypoxic respiratory failure secondary to animal atelectasis/infiltrate in the right midlung. Suspect aspiration. Patient has been treated with Zosyn, she clinically recovered, and she is currently on room air 2 E coli urinary tract infection 3 Small faint subarachnoid blot/cortical contusion on the anterior right frontal lobe. No mass effect or midline shift. There is a liquefied enlarged right frontal scalp hematoma 4 Acute anemia requiring 2 units packed red blood cells. Current hemoglobin 8.4. 5 History of PE/DVT 6 Hypertension 7 Degenerative joint disease 8 Obesity 9 History of H. 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 Maintain aspiration precautions. Patient remains off anticoagulation, her mentation is somewhat improved, patient is more interactive, although still remains confused. From pulmonary perspective patient could be considered for discharge to ECF, once the IVC filter is in. Pulmonary service will sign off and follow on as-needed basis. I performed a history & physical examination of the patient and discussed their management with my nurse practitioner, Zena Rasmussen. I reviewed the nurse practitioner's note and agree with the documented findings and plan of care. Lung sounds are positive for diminished breath sounds. The findings and the impression was discussed with the patient. I attest to the documentation by the nurse practitioner. Time with Patient: Less than 30
[2019-07-05] MEDS: SODIUM CHLORIDE 0.9% 1,000 ML IV SCH (13:33)
--- NOTE | 2019-07-05 13:38 | P.PN ---
Subjective Progress Note Date: 07/05/19 Maria Teresa Celeste is a 73-year-old female resident of [facility] on the [facility] who sustained a fall with head trauma on 06/18/2019 at that time she was sent to emergency room and had a computed tomography scan of the brain and the cervical spine without contrast, she had evidence of a large frontal scalp hematoma and right periorbital hematoma but no intracranial bleeding, she was sent back to [facility] on the [facility]. On 06/22/2019 patient was noticed to have worsening mental status was more somnolence and less responsiveness by the nursing staff she was sent back to emergency room repeat computed tomography scan of the brain revealed evidence of minimal subarachnoid hemorrhage and possible intraparenchymal hemorrhage in the right periventricular white matter. Possibility of transferring patient to a tertiary care center was discussed in details in the emergency room, however due to the fact that trauma happened several days ago, and due to the fact that there is an epidemic of Covid 19 infection which is making it very difficult to transfer patient to [facility], and due to patient age and comorbidities which makes intracranial intervention exceedingly difficult, decision was made not to proceed with transferring patient, her son, (and current power of commercial real estate attorney since her earlier this month) who was in the emergency room was in agreement of this decision. Patient was admitted to telemetry floor and neurology consultation was requested. Patient has a known history of DVT and PE, she was maintained on aspirin and Coumadin, these medications are now on hold. Patient also had evidence of urinary tract infection with sepsis as evidenced by temperature of 102.1 and leukocytosis white blood count was 14.0 and tachycardia was heart rate of 123 Patient will be given a fluid bolus lactic acid level was ordered but not resulted yet, she was given a dose of IV Rocephin in the emergency room Infectious disease consultation was requested, Covid 19 testing will be done due to elevated temperature On 06/23/2019 patient was seen and examined on the medical floor she is somnolent and responsive she answers questions briefly but goes back to sleep she is denying any pain or discomfort at this time she is denying shortness of breath or cough she is still having spikes of temperature to 102.4 neurology input reviewed will restart Coumadin tomorrow. On 06/24/2019 patient was seen and examined on the medical floor she is more alert and responsive today, white blood count is up to 15.4 hemoglobin 6.0 at this time Coumadin will be held again she will receive 1 unit of red blood cell transfusion then recheck CBC. Covid 19 testing is still pending patient is still having spikes of temperature or fever this morning was 100.7 she still has tachycardia and low oxygen saturation of 89% on room air On 06/25/2019 patient was seen and examined on the medical floor she is somnolent opens eyes and responsive to stimuli and answers few questions with yes or no" since her eyes again she is still having some fever liver enzymes are more elevated today, white blood count is improving, she is still maintained on IV antibiotic for urinary tract infection albumin level is lower at 2.7 patient has poor oral intake On 06/26/2019 patient was seen and examined on the medical floor she is more alert and responsive today she is answering questions appropriately there is no fever or chills no headache or dizziness no chest pain or shortness of breath no cough no nausea or vomiting no abdominal pain no diarrhea and no urinary symptoms. On 06/27/2019 patient was seen and examined on the medical floor she is alert responsive to stimuli and answers few questions and closes her eyes there is no fever or chills no headache or dizziness no chest pain no shortness of breath no cough, no nausea or vomiting no abdominal pain no diarrhea no burning was urination no frequency or urgency and no hematuria, white blood count is increasing up to 32.9 patient is maintained on Zosyn and vancomycin, infectious disease following On 06/28/2019 A shouldn't was seen and examined on the medical floor she is alert responsive in no apparent distress there is no fever or chills no headache or dizziness no chest pain no shortness of breath no cough no nausea or vomiting no abdominal pain no diarrhea and no urinary symptoms she is complaining of left lower extremity pain white blood count is still significantly elevated at 31 INR is elevated at 5.7 patient is not on any Coumadin at this time a dose of vitamin K orally will be given On 06/29/2019 patient was seen and examined on the medical floor she is more alert today however she is confused there is no fever or chills no headache or dizziness no chest pain no shortness of breath no cough no nausea or vomiting no abdominal pain no diarrhea and no urinary symptoms, hemoglobin today is down to 6.21 unit of red blood cell transfusion was ordered INR is 2.6 patient is not on any Coumadin she received vitamin K yesterday On 06/30/2019 patient is more alert today and responding to questions appropriately there is no fever or chills no headache or dizziness no chest pain no shortness of breath no cough no nausea or vomiting no abdominal pain no diarrhea and no urinary symptoms patient is complaining of left lower extremity pain she has a large bruise on the left knee area, INR today is 1.5 hemoglobin 8.1 On 07/01/2019 patient was seen and examined on the medical floor she is alert a nd responding to few questions then closes her eyes she is complaining of pain in the left knee area otherwise no complaints she has a large hematoma on the knee, there is no fever or chills no chest pain or shortness of breath no cough no nausea or vomiting no abdominal pain no diarrhea and no urinary symptoms. On 07/02/2019 patient was seen and examined on the medical floor she is alert slightly confused in no apparent distress there is no fever or chills no headache or dizziness no chest pain no shortness of breath no cough no nausea or vomiting no abdominal pain no diarrhea and no urinary symptoms On 07/03/2019 patient was seen and examined on the medical floor she is doing slightly better she is alert and responsive in no apparent distress there is no fever or chills no headache or dizziness no chest pain no shortness of breath no cough no nausea or vomiting no abdominal pain no diarrhea and no urinary symptoms, she is still complaining of left knee pain at this time will check knee x-ray and consult orthopedic surgery On 07/04/2019 patient was seen and examined on the medical floor she is drowsy but responsive, answering a few questions at the time then closes her eyes, th ere is no fever or chills no headache or dizziness no chest pain no shortness of breath no cough no nausea or vomiting no abdominal pain no diarrhea and no urinary symptoms, patient mostly complaining of left lower extremity pain. On 07/05/2019 patient was seen and examined on the medical floor she is alert and responsive in no apparent distress there is no fever or chills no headache or dizziness no chest pain no shortness of breath no cough no nausea or vomiting no abdominal pain no diarrhea no burning with urination no frequency or urgency and no hematuria. White blood count is improving gradually, patient is still complaining of left lower extremity pain, otherwise no complaints at this time Objective - Vital Signs Vital signs: Vital Signs Temp 98.5 F 07/05/19 06:16 Pulse 107 H 07/05/19 06:16 Resp 20 07/05/19 06:16 BP 161/96 07/05/19 06:16 Pulse Ox 92 L 07/05/19 06:16 Intake & Output 07/04/19 07/05/19 07/05/19 18:59 06:59 18:59 Intake Total 300 Output Total 700 700 Balance -400 -700 Intake: Oral 300 Output: Urine 700 700 Other: Voiding Method Indwelling Catheter Indwelling Catheter # Bowel Movements 0 - Exam In general patient is somnolent responsive answering questions by yes or no and quickly goes back to closing her eyes HEENT with significant trauma and hematoma to the face Neck is supple no JVD no goiter no lymphadenopathy Chest exam reveals a few scattered rhonchi no wheezing Cardiac exam reveals regular heart sounds S1 and S2 with tachycardia no gallops no murmurs Abdomen is soft nontender no organomegaly with normal bowel sounds Extremity exam reveals right above-knee amputation and left was 2+ edema, slightly improving Neurological examination mental status as above otherwise no focal neurological deficit at this time - Labs CBC & Chem 7: 07/05/19 06:35 07/05/19 06:35 Labs: Abnormal Lab Results - Last 24 Hours (Table) 07/05/19 07/05/19 Range/Units 06:35 06:35 WBC 12.6 H (3.8-10.6) k/uL RBC 2.80 L (3.80-5.40) m/uL Hgb 8.4 L (11.4-16.0) gm/dL Hct 26.8 L (34.0-46.0) % RDW 17.2 H (11.5-15.5) % Plt Count 685 H (150-450) k/uL Neutrophils # 10.6 H (1.3-7.7) k/uL Sodium 133 L (137-145) mmol/L AST 144 H (14-36) U/L ALT 120 H (4-34) U/L Alkaline Phosphatase 211 H (38-126) U/L Albumin 2.8 L (3.5-5.0) g/dL Microbiology - Last 24 Hours (Table) 06/28/19 11:22 Blood Culture - Final Blood No Growth after 144 hours 06/28/19 11:27 Blood Culture - Final Blood No Growth after 144 hours Assessment and Plan Plan: 1. Recent fall with head trauma 5 days ago with computed tomography scan revealing minimal subarachnoid hemorrhage and possible intra-parenchymal hemorrhage in the right periventricular white matter. At this time aspirin and Coumadin are held, neurology consultation was requested. I have discussed this case in details with her son who is the power of commercial real estate attorney at this time. Decision at this time is not to transfer patient to a tertiary care center due to the fact that trauma happened 5 days ago and due to current conditions with Covid 19 epidemic. Son is in agreement not to transfer patient. 2. Urinary tract infection with sepsis, urine culture and blood cultures requested, patient started on IV Rocephin, infectious disease consultation requested 3. Mental status changes, due to metabolic encephalopathy related to sepsis, and possibly to intracranial bleeding, will monitor closely 4. Underlying history of hypertention, home blood pressure medication are resumed will monitor 5. Tachycardia, will give fluid bolus 250 mL and reassess medications including metoprolol were resumed 6. Febrile illness was temperature of 102, could be related to urinary tract infection however will check Covid 19 Will consult infectious disease 7. 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 8. Previous history of DVT and PE maintained on Coumadin at this time Coumadin is on hold Will resume when advised by neurology 9. Underlying history of anemia. With worsening anemia during this admission requiring multiple red blood cell transfusion, most likely due to acute bleeding, gastroenterology and hematology are following. 10. Swallowing difficulty, speech therapy following, medication with large pills or medications that are not supposed to be crushed need to be changed due to patient unable to swallow, we change imdur to nitroglycerin patch, discontinue oral iron and give 1 dose of IV iron today, change metoprolol to succinate to metoprolol tartrate twice daily. 11. Protein calorie malnutrition continue with protein supplements orally, we will give 1 dose of IV albumin today followed by IV Lasix due to generalized anasarca 12. Left knee pain with large bruising since admission patient had a fall at the senior living, patient is still complaining of pain at this time, will obtain x-ray Will consult orthopedic surgery. At this time patient is admitted to telemetry floor, she is started on IV fluid and IV antibiotics Neurology consultation and infectious disease consultation are requested Coumadin and aspirin are on hold, will recheck INR in a.m. Will check CBC and CMP in a.m. At this time patient remains a full code which was discussed with her son twice during this admission. Prognosis is guarded
--- NOTE | 2019-07-05 14:29 | P.PN ---
Subjective Progress Note Date: 07/05/19 Principal diagnosis: coagulopathy with bleeding, hemorrhagic CVA and SQ bleeding post trauma In f/u today pt sleeping, aroused with voice, she denied JOHANNA, pain, upper extremities are swollen and weak Objective - Vital Signs Vital signs: Vital Signs Temp 98.5 F 07/05/19 06:16 Pulse 107 H 07/05/19 06:16 Resp 20 07/05/19 08:00 BP 161/96 07/05/19 06:16 Pulse Ox 92 L 07/05/19 06:16 Intake & Output 07/04/19 07/05/19 07/05/19 18:59 06:59 18:59 Intake Total 300 Output Total 700 700 Balance -400 -700 Intake: Oral 300 Output: Urine 700 700 Other: Voiding Method Indwelling Catheter Indwelling Catheter Indwelling Catheter # Bowel Movements 0 - Constitutional General appearance: Present: cooperative, morbidly obese - EENT EENT Comment(s): raccoon eyes from head trauma Eyes: Present: EOMI ENT: Present: hearing grossly normal - Respiratory Details: respirations even and unlabored - Musculoskeletal Musculoskeletal: Present: generalized weakness - Psychiatric Psychiatric: Present: A&O x's 3, appropriate affect, intact judgment & insight - Labs CBC & Chem 7: 07/05/19 06:35 07/05/19 06:35 Labs: Abnormal Lab Results - Last 24 Hours (Table) 07/04/19 07/05/19 07/05/19 Range/Units 07:17 06:35 06:35 WBC 12.6 H (3.8-10.6) k/uL RBC 2.80 L (3.80-5.40) m/uL Hgb 8.4 L (11.4-16.0) gm/dL Hct 26.8 L (34.0-46.0) % RDW 17.2 H (11.5-15.5) % Plt Count 685 H (150-450) k/uL Neutrophils # 10.6 H (1.3-7.7) k/uL Sodium 133 L (137-145) mmol/L AST 144 H (14-36) U/L ALT 120 H (4-34) U/L Alkaline Phosphatase 211 H (38-126) U/L Albumin 2.8 L (3.5-5.0) g/dL [id number] 311.0 H (99.0-242.0) mg/dL Microbiology - Last 24 Hours (Table) 06/28/19 11:22 Blood Culture - Final Blood No Growth after 144 hours 06/28/19 11:27 Blood Culture - Final Blood No Growth after 144 hours Assessment and Plan (1) Acute blood loss anemia Narrative/Plan: Last transfusion was 5 days ago. Hemoglobin stable. Based on iron studies drawn post transfusion, anticipate a degree of iron deficiency. Plan is to follow up with patient about 4-6 weeks and recheck iron levels as well as CBC. Current Visit: Yes Status: Acute Priority: High Code(s): D62 - ACUTE POSTHEMORRHAGIC ANEMIA SNOMED Code(s): 838236760 (2) Iron deficiency anemia Narrative/Plan: Patient received a dose of IV iron plus she has received 4 units of blood. Iron studies to be rechecked 4-6 weeks and hemoglobin monitored at least weekly. Recommend endoscopy, non-urgently Current Visit: Yes Status: Acute Priority: High Code(s): D50.9 - IRON DEFICIENCY ANEMIA, UNSPECIFIED SNOMED Code(s): 15175173 (3) Coagulopathy Narrative/Plan: INR has been reversed. Patient states that she was on Coumadin for pulmonary embolism. Recheck coags Current Visit: Yes Status: Acute Priority: High Code(s): D68.9 - COAGULATION DEFECT, UNSPECIFIED SNOMED Code(s): 05742949 (4) Pulmonary embolism Narrative/Plan: From chart review, old documentation shows that in 2013 (1st EMR H&P)when patient was admitted she was on Coumadin at that time for history of DVT and PE so, she has certainly been on prolonged anticoagulation. Due to recent bleeding, hemorrhagic CVA and supratherapeutic INR, anticoagulation is currently on hold. It is unclear if the patient's previous blood clots were provoked, but I would suspect they were due to the admission diagnoses. Unfortunately, patient's health has not significantly improved since that time. She has multiple provoking factors that persist, including chronic inflammation, recurrent infections as well as mobility issues. Discussed with pt her high risk of continuing anticoagulation (falls, recent subarachnoid hemnorrhage, high INR variability). We discussed intent of IVC filter and Heme recommendation for the same. Pt verbalized understanding and agreed with IVC filter placement. Vascular consulted Current Visit: No Status: Chronic Priority: Medium Code(s): I26.99 - OTHER PULMONARY EMBOLISM WITHOUT ACUTE COR PULMONALE SNOMED Code(s): 87600817 (5) Leukocytosis Narrative/Plan: All neutrophiles. R/T acute injury and recent infections. Count continues to decrease slowly with treatment and recovery Current Visit: Yes Status: Acute Priority: Medium Code(s): D72.829 - ELEVATED WHITE BLOOD CELL COUNT, UNSPECIFIED SNOMED Code(s): 315310619 (6) Thrombocythemia Narrative/Plan: Reactive and iron deficiency. Current Visit: Yes Status: Resolved Priority: Medium Code(s): D47.3 - ESSENTIAL (HEMORRHAGIC) THROMBOCYTHEMIA SNOMED Code(s): 7424729 Plan: Doctor attests: I performed a history and physical examination of this patient, developed impression and plan of care, discussed with dictator. I agree with dictators note, documented as a scribe.
[2019-07-05] MEDS ORDERED: SODIUM CHLORIDE 0.9% 250 ML IV ONE (14:47)
[2019-07-05] MEDS ORDERED: LIDOCAINE 1% INJ 10MG/ML (20 ML MDV) SQ ONE (14:57)
[2019-07-05] MEDS ORDERED: MIDAZOLAM 2 MG/2 ML VIAL IV ONE (14:59)
[2019-07-05] MEDS ORDERED: IOPAMIDOL-250 100ML BTL IV ONE (15:13)
--- NOTE | 2019-07-05 16:18 | CONS ---
DATE OF CONSULTATION: 07/05/2019 This is a 73-year-old pleasant female, well known to me from the past. The patient came from a assisted with a history of fall with head trauma on 06/18/2019. She came to the emergency room and CT scan of the brain and cervical spine without contrast showed evidence of a large frontal scalp hematoma and right periorbital hematoma. Also patient has history of subarachnoid hemorrhage. The patient has a history of DVT and PE in the past. The patient is on Coumadin. The patient was seen by right of way agent and I was called in for placement of a filter. Patient is anticoagulated since she has a past history of multiple PEs and DVT. 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 Discussed with her son, who is her legal guardian, about placement of the filter. Her son agrees. Risks and complications were discussed for bleeding, infection, thrombosis, migration. They understand and we will proceed. PAST MEDICAL HISTORY: Past medical history includes history of deep vein thrombosis, history of PE, history of hypertension. PHYSICAL EXAMINATION: Patient was seen in her room. She is alert and awake. We have discussed about filter placement. She agrees. NECK: Supple. CHEST: Clear. First and second sounds are present. The patient has a right above-knee amputation. Femorals were 1+. PLAN: Venacavogram and placement of the filter. Risks and complications of bleeding, infection, thrombosis, migration have been discussed. The patient fully understands. Discussed with the patient's son. He fully understands. MMODL / IJN: [id number] / MONTY
[2019-07-05] MEDS: DAPTOmycin 500 MG in SODIUM CHLORIDE 0.9% 50 ML IVPB SCH (16:23)
--- NOTE | 2019-07-05 17:57 | OP ---
OPERATIVE REPORT PREOPERATIVE DIAGNOSES: 1. Frontal hematoma with hemorrhage. 2. History of pulmonary embolism and deep venous thrombosis in the past. The patient is on Coumadin. The patient has history of frontal hematoma and subarachnoid hemorrhage. The patient is on Coumadin. The patient was brought to the operating room. Right and left groins were prepped and draped in sterile manner. Ultrasound-guided micropuncture introducer was placed in the left femoral vein. Micropuncture guidewire was passed and 4-B[place]wan[place] dilator was advanced on top of the guidewire. Then we passed a regular guidewire and a 5-[place]wan[place] sheath was advanced on the top of the guidewire. Through the sheath we introduced the pigtail catheter and venacavogram was performed. Both the renals were visualized. After that we removed the 5-[place]an sheath and passed sheath and dilator on top of the guidewire. Through the sheath we the placed the Tulip filter, deployed below the renal vein. Sheath was removed. Pressure was held. The patient tolerated the procedure well. PROCEDURE: 1. Venacavogram. 2. Placement of the Tulip filter. Sedation time was 22 minutes. MMODL / IJN: [id number] /
--- NOTE | 2019-07-05 18:05 | P.PN ---
Subjective Progress Note Date: 07/05/19 Principal diagnosis: Elevated liver enzymes, subarachnoid hemorrhage Patient seen lying in bed in no acute complaints. No acute events per nursing staff. Tolerating diet. Objective - Vital Signs Vital signs: Vital Signs Temp 97.9 F 07/05/19 15:38 Pulse 90 07/05/19 15:53 Resp 16 07/05/19 15:50 BP 156/84 07/05/19 15:53 Pulse Ox 100 07/05/19 15:53 Intake & Output 07/04/19 07/05/19 07/05/19 18:59 06:59 18:59 Intake Total 300 590 Output Total 700 700 601 Balance -400 -700 -11 Intake: IV 50 Oral 300 540 Output: Urine 700 700 600 Stool 1 Other: Voiding Method Indwelling Catheter Indwelling Catheter Indwelling Catheter # Bowel Movements 0 - Exam On physical examination, patient appears comfortable in no apparent distress. HEAD: Normocephalic, atraumatic. EYES: No scleral icterus. No conjunctival injection. MOUTH: No lesions, tongue midline. ABDOMEN: Soft, obese. Bowel sounds are positive. No organomegaly. No guarding or rigidity. EXTREMITIES: No pedal edema. SKIN: No rashes, no jaundice. - Labs CBC & Chem 7: 07/05/19 06:35 07/05/19 06:35 Labs: Abnormal Lab Results - Last 24 Hours (Table) 07/04/19 07/05/19 07/05/19 Range/Units 07:17 06:35 06:35 WBC 12.6 H (3.8-10.6) k/uL RBC 2.80 L (3.80-5.40) m/uL Hgb 8.4 L (11.4-16.0) gm/dL Hct 26.8 L (34.0-46.0) % RDW 17.2 H (11.5-15.5) % Plt Count 685 H (150-450) k/uL Neutrophils # 10.6 H (1.3-7.7) k/uL Sodium 133 L (137-145) mmol/L AST 144 H (14-36) U/L ALT 120 H (4-34) U/L Alkaline Phosphatase 211 H (38-126) U/L Albumin 2.8 L (3.5-5.0) g/dL [id number]-8-Blrqhedhxpo 311.0 H (99.0-242.0) mg/dL Microbiology - Last 24 Hours (Table) 06/28/19 11:22 Blood Culture - Final Blood No Growth after 144 hours 06/28/19 11:27 Blood Culture - Final Blood No Growth after 144 hours Assessment and Plan (1) Elevated liver enzymes Narrative/Plan: 73-year-old female presented to the hospital with multiple medical complaints. Currently being treated for a UTI she was found to have elevation in her liver enzymes of unknown etiology. Viral hepatitis testing has all been negative. Suspicion is for elevation of liver enzymes secondary to antibiotics, may also be secondary to septicemia or other etiology. Current Visit: Yes Status: Acute Code(s): R74.8 - ABNORMAL LEVELS OF OTHER SERUM ENZYMES SNOMED Code(s): 082034535 (2) Acute blood loss anemia Current Visit: Yes Status: Acute Priority: High Code(s): D62 - ACUTE POSTHEMORRHAGIC ANEMIA SNOMED Code(s): 070435585 Plan: Supportive care Continue to monitor CBC, CMP, LFTs Okay for diet as tolerated Avoid hepatotoxic medications Continue other medical management Thank you for allowing us to participate in care of the patient we will continue to follow
--- NOTE | 2019-07-05 18:13 | P.PN ---
Subjective Progress Note Date: 07/05/19 Patient much more alert and awake, as compared to last examination from 06/23/2019. Speech is much more clear. Less mumbling. Encephalopathy much improved. Objective - Vital Signs Vital signs: Vital Signs Temp 97.9 F 07/05/19 15:38 Pulse 87 07/05/19 17:23 Resp 16 07/05/19 15:50 BP 168/93 07/05/19 17:23 Pulse Ox 100 07/05/19 17:23 Intake & Output 07/04/19 07/05/19 07/05/19 18:59 06:59 18:59 Intake Total 300 590 Output Total 700 700 601 Balance -400 -700 -11 Intake: IV 50 Oral 300 540 Output: Urine 700 700 600 Stool 1 Other: Voiding Method Indwelling Catheter Indwelling Catheter Indwelling Catheter # Bowel Movements 0 - Exam Patient's right frontal subcutaneous hematoma has much improved. Patient sleeping at this time, did not wake her up.. - Labs CBC & Chem 7: 07/05/19 06:35 07/05/19 06:35 Labs: Abnormal Lab Results - Last 24 Hours (Table) 07/04/19 07/05/19 07/05/19 Range/Units 07:17 06:35 06:35 WBC 12.6 H (3.8-10.6) k/uL RBC 2.80 L (3.80-5.40) m/uL Hgb 8.4 L (11.4-16.0) gm/dL Hct 26.8 L (34.0-46.0) % RDW 17.2 H (11.5-15.5) % Plt Count 685 H (150-450) k/uL Neutrophils # 10.6 H (1.3-7.7) k/uL Sodium 133 L (137-145) mmol/L AST 144 H (14-36) U/L ALT 120 H (4-34) U/L Alkaline Phosphatase 211 H (38-126) U/L Albumin 2.8 L (3.5-5.0) g/dL Kuuiy-5-Jkvixdylhtf 311.0 H (99.0-242.0) mg/dL Assessment and Plan Assessment: * Altered mental status, likely due to metabolic encephalopathy. Patient has probable acute UTI. Patient possibly has underlying cognitive impairment. * Intracranial hemorrhage, resolved. * History of DVT and PE. * History of right above-knee amputation * Acute UTI * Anemia. * Vitamin B6 deficiency Plan: * Repeat computed tomography scan of head from 07/03/2019 was reviewed. It is essentially unremarkable. The hypodensity seen in the right frontal region has been present in the previous CT scans of head from March 2019, and is likely not contusion, perhaps some calcification. * Patient is status post IVC filter placement. * May resume Coumadin or any antiplatelet medications, as would be indicated to treat her other medical conditions. No neurological contraindications, unless contraindicated from medical standpoint (?anemia). * Treatment of UTI as per IM/ID. * Continue vitamin B6 50 mg daily. Continue other vitamins. * Neurologically clear for discharge. * Neurology will sign off.
[2019-07-05] MEDS: MULTIVITAMINS, THERA 1 EACH TAB PO SCH (21:24)
[2019-07-05] MEDS: FOLIC ACID 1 MG TAB PO SCH (21:25)
[2019-07-05] MEDS: ALLOPURINOL 300 MG TAB PO SCH (21:25)
[2019-07-05] MEDS: ACETAMINOPHEN TAB 500 MG TAB PO PRN (22:50)
--- NOTE | 2019-07-06 00:15 | PN ---
PROGRESS NOTE DATE OF SERVICE: 07/05/2019 REASON FOR FOLLOWUP: Left BKA stump wound and cellulitis. INTERVAL HISTORY: The patient is currently afebrile. The patient is breathing comfortably. The patient remains lethargic. No nausea or vomiting has been noticed. Oral intake remains poor. No diarrhea. PHYSICAL EXAMINATION: Blood pressure 176/99 with a pulse of 94, temperature 98. She is 100% on 2 L nasal cannula. General description is an elderly female lying in bed in no distress. RESPIRATORY SYSTEM: Unlabored breathing with decreased breath sounds at the base. No wheeze. HEART: S1, S2. Regular rate and rhythm. ABDOMEN: Soft. No tenderness. Left BKA stump wound has some swelling but no significant redness or drainage. LABS: Hemoglobin 8.4, white count 12.6, BUN of 12, creatinine 0.56. DIAGNOSTIC IMPRESSION AND PLAN: 1. Patient admitted to hospital with fever, initial concern for a urinary tract infection and aspiration pneumonia that has been adequately treated. 2. Patient subsequently had persistent elevated white count and fever that responded to daptomycin; to continue for now to finish a 2-week course of therapy. Continue with supportive care. MMODL / IJN: [id number] /
[2019-07-06] MEDS: PANTOPRAZOLE 40 MG TABLET PO SCH (05:22)
[2019-07-06] MEDS: PARoxetine 10 MG TAB PO SCH ×2 (09:15→15:44)
[2019-07-06] MEDS: MAGNESIUM OXIDE 400 MG TAB PO SCH ×2 (09:15→19:37)
[2019-07-06] MEDS: LISINOPRIL 20 MG TAB PO SCH ×2 (09:15→15:44)
[2019-07-06] MEDS: CYANOCOBALAMIN 500 MCG TAB PO SCH (09:15)
[2019-07-06] MEDS: CALCIUM CARB-VIT D 500MG-200UN 1 EACH TAB PO SCH ×2 (09:15→19:37)
[2019-07-06] MEDS: POTASSIUM BICARBONATE/CIT AC 20 MEQ TABLET.EFF PO SCH (09:16)
[2019-07-06] MEDS: NITROGLYCERIN 0.3MG/HR PATCH TRANSDERM SCH (09:16)
[2019-07-06] MEDS: METOPROLOL TARTRATE 25 MG TAB PO SCH ×2 (09:16→19:37)
[2019-07-06] MEDS: PYRIDOXINE 50 MG TAB PO SCH (09:16)
--- NOTE | 2019-07-06 09:20 | IR ---
EXAMINATION TYPE: IR IVC filter placement DATE OF EXAM: 07/05/2019 COMPARISON: NONE HISTORY: Fluoroscopy time. Fluoroscopy was provided to the referring clinician.
[2019-07-06 10:41] LABS: ALT 108 U/L (4-34); AST 94 U/L (14-36); African American GFR (CKD) >90 (>60 ml/min/1.73 sqM); Albumin 2.7 g/dL (3.5-5.0); Alkaline Phosphatase 197 U/L (38-126); Anion Gap 7 mmol/L; Blood Urea Nitrogen 12 mg/dL (7-17); Carbon Dioxide 31 mmol/L (22-30); Chloride 99 mmol/L (98-107); Glucose 113 mg/dL (74-99); Non-African American GFR(CKD) >90 (>60 ml/min/1.73 sqM); Potassium 3.8 mmol/L (3.5-5.1); Sodium 137 mmol/L (137-145); Total Bilirubin 0.9 mg/dL (0.2-1.3); Total Protein 6.4 g/dL (6.3-8.2)
--- NOTE | 2019-07-06 12:55 | P.PN ---
Subjective Progress Note Date: 07/06/19 Principal diagnosis: coagulopathy with bleeding, hemorrhagic CVA and SQ bleeding post trauma In f/u today pt being cleaned up, stool specimen collected, pt has no acute c/o. RNs report no complications post IVC placement Objective - Vital Signs Vital signs: Vital Signs Temp 97.9 F 07/06/19 06:11 Pulse 92 07/06/19 06:11 Resp 20 07/06/19 06:11 BP 151/77 07/06/19 06:11 Pulse Ox 92 L 07/06/19 06:11 Intake & Output 07/05/19 07/06/19 07/06/19 18:59 06:59 18:59 Intake Total 590 300 Output Total 601 2001 Intake: IV 50 Oral 540 300 Output: Urine 600 2000 Stool 1 2 Other: Voiding Method Indwelling Catheter Indwelling Catheter Indwelling Catheter # Voids 0 # Bowel Movements 0 - Constitutional General appearance: Present: cooperative, morbidly obese, no acute distress - Respiratory Details: no labored breathing - Musculoskeletal Musculoskeletal Comment(s): requires 2 person assist, needs help with ADLs Musculoskeletal: Present: generalized weakness - Labs CBC & Chem 7: 07/05/19 06:35 07/06/19 09:37 Labs: Abnormal Lab Results - Last 24 Hours (Table) 07/06/19 Range/Units 09:37 Carbon Dioxide 31 H (22-30) mmol/L Glucose 113 H (74-99) mg/dL AST 94 H (14-36) U/L ALT 108 H (4-34) U/L Alkaline Phosphatase 197 H (38-126) U/L Albumin 2.7 L (3.5-5.0) g/dL Assessment and Plan (1) Acute blood loss anemia Narrative/Plan: Last transfusion was 7 days ago. Hemoglobin stable. Based on iron studies drawn post transfusion, anticipate a degree of iron deficiency. Plan is to follow up with patient about 4-6 weeks and recheck iron levels as well as CBC. Current Visit: Yes Status: Acute Priority: High Code(s): D62 - ACUTE POSTHEMORRHAGIC ANEMIA SNOMED Code(s): 756086184 (2) Iron deficiency anemia Narrative/Plan: Patient received a dose of IV iron plus she has received 4 units of blood. Iron studies to be rechecked 4-6 weeks and hemoglobin monitored at least weekly. Recommend endoscopy, non-urgently Current Visit: Yes Status: Acute Priority: High Code(s): D50.9 - IRON DEFICIENCY ANEMIA, UNSPECIFIED SNOMED Code(s): 53523451 (3) Coagulopathy Narrative/Plan: INR has been reversed. Patient states that she was on Coumadin for pulmonary embolism. Current Visit: Yes Status: Acute Priority: High Code(s): D68.9 - COAGUL ATION DEFECT, UNSPECIFIED SNOMED Code(s): 12243011 (4) Pulmonary embolism Narrative/Plan: From chart review, old documentation shows that in 2013 (1st EMR H&P)when patient was admitted she was on Coumadin at that time for history of DVT and PE so, she has certainly been on prolonged anticoagulation. Due to recent bleeding, hemorrhagic CVA and supratherapeutic INR, anticoagulation is currently on hold. It is unclear if the patient's previous blood clots were provoked, but I would suspect they were due to the admission diagnoses. Unfortunately, patient's health has not significantly improved since that time. She has mu ltiple provoking factors that persist, including chronic inflammation, recurrent infections as well as mobility issues. Discussed with pt her high risk of continuing anticoagulation (falls, recent s ubarachnoid hemnorrhage, high INR variability). We discussed intent of IVC filter and Heme recommendation for the same. Pt verbalized understanding and agreed with IVC filter placement. Vascular placed IVC filter 07/05/19. Current Visit: No Status: Chronic Priority: Medium Code(s): I26.99 - OTHER PULMONARY EMBOLISM WITHOUT ACUTE COR PULMONALE SNOMED Code(s): 96748240 (5) Leukocytosis Narrative/Plan: All neutrophiles. R/T acute injury and recent infections. Count had been slowly recovering, CBC in AM Current Visit: Yes Status: Acute Priority: Medium Code(s): D72.829 - ELEVATED WHITE BLOOD CELL COUNT, UNSPECIFIED SNOMED Code(s): 834869091 (6) Thrombocythemia Narrative/Plan: Reactive and iron deficiency. Iron def treatment has been initiated, anticipate decrease in plt count to normal level over time. CBC in AM Current Visit: Yes Status: Resolved Priority: Medium Code(s): D47.3 - ESSENTIAL (HEMORRHAGIC) THROMBOCYTHEMIA SNOMED Code(s): 1653820 Plan: Doctor attests: I performed a history and physical examination of this patient, developed impression and plan of care, discussed with dictator. I agree with dictators note, documented as a scribe.
--- NOTE | 2019-07-06 15:13 | P.PN ---
Subjective Progress Note Date: 07/06/19 Maria Teresa Celeste is a 73-year-old female resident of [facility] on the [facility] who sustained a fall with head trauma on 06/18/2019 at that time she was sent to emergency room and had a computed tomography scan of the brain and the cervical spine without contrast, she had evidence of a large frontal scalp hematoma and right periorbital hematoma but no intracranial bleeding, she was sent back to [facility] on the [facility]. On 06/22/2019 patient was noticed to have worsening mental status was more somnolence and less responsiveness by the nursing staff she was sent back to emergency room repeat computed tomography scan of the brain revealed evidence of minimal subarachnoid hemorrhage and possible intraparenchymal hemorrhage in the right periventricular white matter. Possibility of transferring patient to a tertiary care center was discussed in details in the emergency room, however due to the fact that trauma happened several days ago, and due to the fact that there is an epidemic of Covid 19 infection which is making it very difficult to transfer patient to [facility], and due to patient age and comorbidities which makes intracranial intervention exceedingly difficult, decision was made not to proceed with transferring patient, her son, (and current power of sports attorney since her earlier this month) who was in the emergency room was in agreement of this decision. Patient was admitted to telemetry floor and neurology consultation was requested. Patient has a known history of DVT and PE, she was maintained on aspirin and Coumadin, these medications are now on hold. Patient also had evidence of urinary tract infection with sepsis as evidenced by temperature of 102.1 and leukocytosis white blood count was 14.0 and tachycardia was heart rate of 123 Patient will be given a fluid bolus lactic acid level was ordered but not resulted yet, she was given a dose of IV Rocephin in the emergency room Infectious disease consultation was requested, Covid 19 testing will be done due to elevated temperature On 06/23/2019 patient was seen and examined on the medical floor she is somnolent and responsive she answers questions briefly but goes back to sleep she is denying any pain or discomfort at this time she is denying shortness of breath or cough she is still having spikes of temperature to 102.4 neurology input reviewed will restart Coumadin tomorrow. On 06/24/2019 patient was seen and examined on the medical floor she is more alert and responsive today, white blood count is up to 15.4 hemoglobin 6.0 at this time Coumadin will be held again she will receive 1 unit of red blood cell transfusion then recheck CBC. Covid 19 testing is still pending patient is still having spikes of temperature or fever this morning was 100.7 she still has tachycardia and low oxygen saturation of 89% on room air On 06/25/2019 patient was seen and examined on the medical floor she is somnolent opens eyes and responsive to stimuli and answers few questions with yes or no" since her eyes again she is still having some fever liver enzymes are more elevated today, white blood count is improving, she is still maintained on IV antibiotic for urinary tract infection albumin level is lower at 2.7 patient has poor oral intake On 06/26/2019 patient was seen and examined on the medical floor she is more alert and responsive today she is answering questions appropriately there is no fever or chills no headache or dizziness no chest pain or shortness of breath no cough no nausea or vomiting no abdominal pain no diarrhea and no urinary symptoms. On 06/27/2019 patient was seen and examined on the medical floor she is alert responsive to stimuli and answers few questions and closes her eyes there is no fever or chills no headache or dizziness no chest pain no shortness of breath no cough, no nausea or vomiting no abdominal pain no diarrhea no burning was urination no frequency or urgency and no hematuria, white blood count is increasing up to 32.9 patient is maintained on Zosyn and vancomycin, infectious disease following On 06/28/2019 A shouldn't was seen and examined on the medical floor she is alert responsive in no apparent distress there is no fever or chills no headache or dizziness no chest pain no shortness of breath no cough no nausea or vomiting no abdominal pain no diarrhea and no urinary symptoms she is complaining of left lower extremity pain white blood count is still significantly elevated at 31 INR is elevated at 5.7 patient is not on any Coumadin at this time a dose of vitamin K orally will be given On 06/29/2019 patient was seen and examined on the medical floor she is more alert today however she is confused there is no fever or chills no headache or dizziness no chest pain no shortness of breath no cough no nausea or vomiting no abdominal pain no diarrhea and no urinary symptoms, hemoglobin today is down to 6.21 unit of red blood cell transfusion was ordered INR is 2.6 patient is not on any Coumadin she received vitamin K yesterday On 06/30/2019 patient is more alert today and responding to questions appropriately there is no fever or chills no headache or dizziness no chest pain no shortness of breath no cough no nausea or vomiting no abdominal pain no diarrhea and no urinary symptoms patient is complaining of left lower extremity pain she has a large bruise on the left knee area, INR today is 1.5 hemoglobin 8.1 On 07/01/2019 patient was seen and examined on the medical floor she is alert a nd responding to few questions then closes her eyes she is complaining of pain in the left knee area otherwise no complaints she has a large hematoma on the knee, there is no fever or chills no chest pain or shortness of breath no cough no nausea or vomiting no abdominal pain no diarrhea and no urinary symptoms. On 07/02/2019 patient was seen and examined on the medical floor she is alert slightly confused in no apparent distress there is no fever or chills no headache or dizziness no chest pain no shortness of breath no cough no nausea or vomiting no abdominal pain no diarrhea and no urinary symptoms On 07/03/2019 patient was seen and examined on the medical floor she is doing slightly better she is alert and responsive in no apparent distress there is no fever or chills no headache or dizziness no chest pain no shortness of breath no cough no nausea or vomiting no abdominal pain no diarrhea and no urinary symptoms, she is still complaining of left knee pain at this time will check knee x-ray and consult orthopedic surgery On 07/04/2019 patient was seen and examined on the medical floor she is drowsy but responsive, answering a few questions at the time then closes her eyes, th ere is no fever or chills no headache or dizziness no chest pain no shortness of breath no cough no nausea or vomiting no abdominal pain no diarrhea and no urinary symptoms, patient mostly complaining of left lower extremity pain. On 07/05/2019 patient was seen and examined on the medical floor she is alert and responsive in no apparent distress there is no fever or chills no headache or dizziness no chest pain no shortness of breath no cough no nausea or vomiting no abdominal pain no diarrhea no burning with urination no frequency or urgency and no hematuria. White blood count is improving gradually, patient is still complaining of left lower extremity pain, otherwise no complaints at this time On 07/06/2019 patient was seen and examined on the medical floor she is more alert and responsive today she is complaining of feeling depressed she is complaining of pain mostly in her left lower extremity otherwise she denies any complaints there is no fever or chills no headache or dizziness no chest pain no shortness of breath no cough no nausea or vomiting no abdominal pain no diarrhea and no urinary symptoms Objective - Vital Signs Vital signs: Vital Signs Temp 98.9 F 07/06/19 14:12 Pulse 85 07/06/19 14:12 Resp 18 07/06/19 14:12 BP 169/91 07/06/19 14:12 Pulse Ox 100 07/06/19 14:12 Intake & Output 07/05/19 07/06/19 07/06/19 18:59 06:59 18:59 Intake Total 590 300 Output Total 601 2002 350 Balance -11 -1702 -350 Intake: IV 50 Oral 540 300 Output: Urine 600 2000 350 Stool 1 2 Other: Voiding Method Indwelling Catheter Indwelling Catheter Indwelling Catheter # Voids 0 # Bowel Movements 0 2 - Exam In general patient is somnolent responsive answering questions by yes or no and quickly goes back to closing her eyes HEENT with significant trauma and hematoma to the face Neck is supple no JVD no goiter no lymphadenopathy Chest exam reveals a few scattered rhonchi no wheezing Cardiac exam reveals regular heart sounds S1 and S2 with tachycardia no gallops no murmurs Abdomen is soft nontender no organomegaly with normal bowel sounds Extremity exam reveals right above-knee amputation and left was 2+ edema, slightly improving Neurological examination mental status as above otherwise no focal neurological deficit at this time - Labs CBC & Chem 7: 07/05/19 06:35 07/06/19 09:37 Labs: Abnormal Lab Results - Last 24 Hours (Table) 07/06/19 Range/Units 09:37 Carbon Dioxide 31 H (22-30) mmol/L Glucose 113 H (74-99) mg/dL AST 94 H (14-36) U/L ALT 108 H (4-34) U/L Alkaline Phosphatase 197 H (38-126) U/L Albumin 2.7 L (3.5-5.0) g/dL Assessment and Plan Plan: 1. Recent fall with head trauma 5 days ago with computed tomography scan reve aling minimal subarachnoid hemorrhage and possible intra-parenchymal hemorrhage in the right periventricular white matter. At this time aspirin and Coumadin are held, neurology consultation was requested. I have discussed this case in details with her son who is the power of sports attorney at this time. Decision at this time is not to transfer patient to a tertiary care center due to the fact that trauma happened 5 days ago and due to current conditions with Covid 19 epidemic. Son is in agreement not to transfer patient. 2. Urinary tract infection with sepsis, urine culture and blood cultures r equested, patient started on IV Rocephin, infectious disease consultation requested 3. Mental status changes, due to metabolic encephalopathy related to sepsis, and possibly to intracranial bleeding, will monitor closely 4. Underlying history of hypertention, home blood pressure medication are res umed will monitor 5. Tachycardia, will give fluid bolus 250 mL and reassess medications including metoprolol were resumed 6. Febrile illness was temperature of 102, could be related to urinary tract infection however will check Covid 19 Will consult infectious disease 7. 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 8. Previous history of DVT and PE maintained on Coumadin at this time Coumadin is on hold Will resume when advised by neurology 9. Underlying history of anemia. With worsening anemia during this admission requiring multiple red blood cell transfusion, most likely due to acute bleeding, gastroenterology and hematology are following. 10. Swallowing difficulty, speech therapy following, medication with large pills or medications that are not supposed to be crushed need to be changed due to patient unable to swallow, we change imdur to nitroglycerin patch, discontinue oral iron and give 1 dose of IV iron today, change metoprolol to succinate to metoprolol tartrate twice daily. 11. Protein calorie malnutrition continue with protein supplements orally, we will give 1 dose of IV albumin today followed by IV Lasix due to generalized anasarca 12. Left knee pain with large bruising since admission patient had a fall at the [facility], patient is still complaining of pain at this time, will obtain x-ray Will consult orthopedic surgery. At this time patient is admitted to telemetry floor, she is started on IV fluid and IV antibiotics Neurology consultation and infectious disease consultation are requested Coumadin and aspirin are on hold, will recheck INR in a.m. Will check CBC and CMP in a.m. At this time patient remains a full code which was discussed with her son twice during this admission. Prognosis is guarded
[2019-07-06] MEDS: DAPTOmycin 500 MG in SODIUM CHLORIDE 0.9% 50 ML IVPB SCH (15:44)
[2019-07-06] MEDS: SODIUM CHLORIDE 0.9% 1,000 ML IV SCH (15:46)
[2019-07-06] MEDS: ACETAMINOPHEN TAB 500 MG TAB PO PRN (18:14)
[2019-07-06] MEDS: FOLIC ACID 1 MG TAB PO SCH (19:37)
[2019-07-06] MEDS: MULTIVITAMINS, THERA 1 EACH TAB PO SCH (19:37)
[2019-07-06] MEDS: ALLOPURINOL 300 MG TAB PO SCH (19:37)
--- NOTE | 2019-07-06 20:19 | P.PN ---
Subjective Progress Note Date: 07/06/19 Principal diagnosis: Elevated liver enzymes, subarachnoid hemorrhage Patient seen lying in bed in no acute complaints. No acute events per nursing staff. Tolerating diet. Objective - Vital Signs Vital signs: Vital Signs Temp 98.9 F 07/06/19 14:12 Pulse 85 07/06/19 14:12 Resp 18 07/06/19 14:12 BP 169/91 07/06/19 14:12 Pulse Ox 100 07/06/19 14:12 Intake & Output 07/06/19 07/06/19 07/07/19 06:59 18:59 06:59 Intake Total 300 Output Total 2001 350 Balance -1702 -350 Intake: Oral 300 Output: Urine 1999 350 Stool 2 Other: Voiding Method Indwelling Catheter Indwelling Catheter # Voids 0 # Bowel Movements 0 2 - Exam On physical examination, patient appears comfortable in no apparent distress. HEAD: Normocephalic, atraumatic. EYES: No scleral icterus. No conjunctival injection. MOUTH: No lesions, tongue midline. ABDOMEN: Soft, obese. Bowel sounds are positive. No organomegaly. No guarding or rigidity. EXTREMITIES: No pedal edema. SKIN: No rashes, no jaundice. - Labs CBC & Chem 7: 07/05/19 06:35 07/06/19 09:37 Labs: Abnormal Lab Results - Last 24 Hours (Table) 07/06/19 Range/Units 09:37 Carbon Dioxide 31 H (22-30) mmol/L Glucose 113 H (74-99) mg/dL AST 94 H (14-36) U/L ALT 108 H (4-34) U/L Alkaline Phosphatase 197 H (38-126) U/L Albumin 2.7 L (3.5-5.0) g/dL Assessment and Plan (1) Elevated liver enzymes Narrative/Plan: 73-year-old female presented to the hospital with multiple medical complaints. Currently being treated for a UTI she was found to have elevation in her liver enzymes of unknown etiology. Viral hepatitis testing has all been negative. Suspicion is for elevation of liver enzymes secondary to antibiotics, may also be secondary to septicemia or other etiology. Current Visit: Yes Status: Acute Code(s): R74.8 - ABNORMAL LEVELS OF OTHER SERUM ENZYMES SNOMED Code(s): 173662260 (2) Acute blood loss anemia Current Visit: Yes Status: Acute Priority: High Code(s): D62 - ACUTE POSTHEMORRHAGIC ANEMIA SNOMED Code(s): 334426475 Plan: Supportive care Continue to monitor CBC, CMP, LFTs Okay for diet as tolerated Avoid hepatotoxic medications Continue other medical management Thank you for allowing us to participate in care of the patient we will continue to follow
--- NOTE | 2019-07-07 04:46 | PN ---
PROGRESS NOTE DATE OF SERVICE: 07/06/2019 REASON FOR FOLLOWUP: Right BKA stump wound and cellulitis. INTERVAL HISTORY: The patient is currently afebrile. The patient has been breathing comfortably. Patient remains to be lethargic and unable to provide any history. No vomiting or diarrhea has been reported. PHYSICAL EXAMINATION: Blood pressure 150/76, pulse of 83, temperature 98.4. She is 99% on 2 L nasal cannula. General description is an elderly female lying in bed in no distress. RESPIRATORY SYSTEM: Unlabored breathing, clear to auscultation anteriorly. HEART: S1, S2. Regular rate and rhythm. ABDOMEN: Soft, No tenderness. LABS: Creatinine 0.57. No CBC was done. DIAGNOSTIC IMPRESSION AND PLAN: 1. Patient with fever and leukocytosis, multifactorial in this patient who did have a component of Escherichia coli urinary tract infection and aspiration pneumonia adequately treated. 2. Patient with right BKA stump wound with possible cellulitis, covered with daptomycin. Continue to finish a 2-week course of therapy. Continue supportive care. MMODL / IJN: [id number] /
[2019-07-07] MEDS: PANTOPRAZOLE 40 MG TABLET PO SCH (05:31)
[2019-07-07 07:34] LABS: ALT 83 U/L (4-34); AST 61 U/L (14-36); African American GFR (CKD) >90 (>60 ml/min/1.73 sqM); Albumin 2.6 g/dL (3.5-5.0); Alkaline Phosphatase 155 U/L (38-126); Anion Gap 4 mmol/L; Blood Urea Nitrogen 10 mg/dL (7-17); Calcium 8.7 mg/dL (8.4-10.2); Carbon Dioxide 31 mmol/L (22-30); Chloride 99 mmol/L (98-107); Glucose 86 mg/dL (74-99); Non-African American GFR(CKD) >90 (>60 ml/min/1.73 sqM); Potassium 4.2 mmol/L (3.5-5.1); Sodium 134 mmol/L (137-145); Total Bilirubin 0.9 mg/dL (0.2-1.3); Total Protein 6.2 g/dL (6.3-8.2)
[2019-07-07] MEDS: MAGNESIUM OXIDE 400 MG TAB PO SCH ×2 (07:41→21:48)
[2019-07-07] MEDS: CYANOCOBALAMIN 500 MCG TAB PO SCH (07:41)
[2019-07-07] MEDS: METOPROLOL TARTRATE 25 MG TAB PO SCH ×2 (07:41→21:48)
[2019-07-07] MEDS: CALCIUM CARB-VIT D 500MG-200UN 1 EACH TAB PO SCH ×2 (07:41→21:49)
[2019-07-07] MEDS: PARoxetine 10 MG TAB PO SCH ×2 (07:42→17:01)
[2019-07-07] MEDS: LISINOPRIL 20 MG TAB PO SCH ×2 (07:42→17:01)
[2019-07-07] MEDS: PYRIDOXINE 50 MG TAB PO SCH (07:53)
[2019-07-07] MEDS: NITROGLYCERIN 0.3MG/HR PATCH TRANSDERM SCH (07:53)
[2019-07-07] MEDS: POTASSIUM BICARBONATE/CIT AC 20 MEQ TABLET.EFF PO SCH (07:54)
[2019-07-07 09:17] LABS: Anisocytosis Slight; Basophils % (A) 0 %; Eosinophils # (A) 0.2 k/uL (0-0.7); Eosinophils % (A) 2 %; HCT 26.6 % (34.0-46.0); HGB 8.2 gm/dL (11.4-16.0); Hypochromasia Moderate; Lymphocytes # (A) 0.9 k/uL (1.0-4.8); Lymphocytes % (A) 8 %; MCV 96.8 fL (80.0-100.0); Macrocytosis Slight; Mean Platelet Volume 7.9; Monocytes # (A) 0.4 k/uL (0-1.0); Monocytes % (A) 4 %; Neutrophils # (A) 9.3 k/uL (1.3-7.7); Neutrophils % (A) 84 %; Platelet Count 669 k/uL (150-450); RBC 2.74 m/uL (3.80-5.40); WBC 11.1 k/uL (3.8-10.6)
[2019-07-07] MEDS: SODIUM CHLORIDE 0.9% 1,000 ML IV SCH (13:14)
--- NOTE | 2019-07-07 16:15 | P.PN ---
Subjective Progress Note Date: 07/07/19 Maria Teresa Celeste is a 73-year-old female resident of [facility] the [facility] who sustained a fall with head trauma on 06/18/2019 at that time she was sent to emergency room and had a computed tomography scan of the brain and the cervical spine without contrast, she had evidence of a large frontal scalp hematoma and right periorbital hematoma but no intracranial bleeding, she was sent back to [facility] on the [facility]. On 06/22/2019 patient was noticed to have worsening mental status was more somnolence and less responsiveness by the nursing staff she was sent back to emergency room repeat computed tomography scan of the brain revealed evidence of minimal subarachnoid hemorrhage and possible intraparenchymal hemorrhage in the right periventricular white matter. Possibility of transferring patient to a tertiary care center was discussed in details in the emergency room, however due to the fact that trauma happened several days ago, and due to the fact that there is an epidemic of Covid 19 infection which is making it very difficult to transfer patient to [facility], and due to patient age and comorbidities which makes intracranial intervention exceedingly difficult, decision was made not to proceed with transferring patient, her son, (and current power of commonwealth attorney since her earlier this month) who was in the emergency room was in agreement of this decision. Patient was admitted to telemetry floor and neurology consultation was requested. Patient has a known history of DVT and PE, she was maintained on aspirin and Coumadin, these medications are now on hold. Patient also had evidence of urinary tract infection with sepsis as evidenced by temperature of 102.1 and leukocytosis white blood count was 14.0 and tachycardia was heart rate of 123 Patient will be given a fluid bolus lactic acid level was ordered but not resulted yet, she was given a dose of IV Rocephin in the emergency room Infectious disease consultation was requested, Covid 19 testing will be done due to elevated temperature On 06/23/2019 patient was seen and examined on the medical floor she is somnolent and responsive she answers questions briefly but goes back to sleep she is denying any pain or discomfort at this time she is denying shortness of breath or cough she is still having spikes of temperature to 102.4 neurology input reviewed will restart Coumadin tomorrow. On 06/24/2019 patient was seen and examined on the medical floor she is more alert and responsive today, white blood count is up to 15.4 hemoglobin 6.0 at this time Coumadin will be held again she will receive 1 unit of red blood cell transfusion then recheck CBC. Covid 19 testing is still pending patient is still having spikes of temperature or fever this morning was 100.7 she still has tachycardia and low oxygen saturation of 89% on room air On 06/25/2019 patient was seen and examined on the medical floor she is somnolent opens eyes and responsive to stimuli and answers few questions with yes or no" since her eyes again she is still having some fever liver enzymes are more elevated today, white blood count is improving, she is still maintained on IV antibiotic for urinary tract infection albumin level is lower at 2.7 patient has poor oral intake On 06/26/2019 patient was seen and examined on the medical floor she is more alert and responsive today she is answering questions appropriately there is no fever or chills no headache or dizziness no chest pain or shortness of breath no cough no nausea or vomiting no abdominal pain no diarrhea and no urinary symptoms. On 06/27/2019 patient was seen and examined on the medical floor she is alert responsive to stimuli and answers few questions and closes her eyes there is no fever or chills no headache or dizziness no chest pain no shortness of breath no cough, no nausea or vomiting no abdominal pain no diarrhea no burning was urination no frequency or urgency and no hematuria, white blood count is increasing up to 32.9 patient is maintained on Zosyn and vancomycin, infectious disease following On 06/28/2019 A shouldn't was seen and examined on the medical floor she is alert responsive in no apparent distress there is no fever or chills no headache or dizziness no chest pain no shortness of breath no cough no nausea or vomiting no abdominal pain no diarrhea and no urinary symptoms she is complaining of left lower extremity pain white blood count is still significantly elevated at 31 INR is elevated at 5.7 patient is not on any Coumadin at this time a dose of vitamin K orally will be given On 06/29/2019 patient was seen and examined on the medical floor she is more alert today however she is confused there is no fever or chills no headache or dizziness no chest pain no shortness of breath no cough no nausea or vomiting no abdominal pain no diarrhea and no urinary symptoms, hemoglobin today is down to 6.21 unit of red blood cell transfusion was ordered INR is 2.6 patient is not on any Coumadin she received vitamin K yesterday On 06/30/2019 patient is more alert today and responding to questions appropriately there is no fever or chills no headache or dizziness no chest pain no shortness of breath no cough no nausea or vomiting no abdominal pain no diarrhea and no urinary symptoms patient is complaining of left lower extremity pain she has a large bruise on the left knee area, INR today is 1.5 hemoglobin 8.1 On 07/01/2019 patient was seen and examined on the medical floor she is alert a nd responding to few questions then closes her eyes she is complaining of pain in the left knee area otherwise no complaints she has a large hematoma on the knee, there is no fever or chills no chest pain or shortness of breath no cough no nausea or vomiting no abdominal pain no diarrhea and no urinary symptoms. On 07/02/2019 patient was seen and examined on the medical floor she is alert slightly confused in no apparent distress there is no fever or chills no headache or dizziness no chest pain no shortness of breath no cough no nausea or vomiting no abdominal pain no diarrhea and no urinary symptoms On 07/03/2019 patient was seen and examined on the medical floor she is doing slightly better she is alert and responsive in no apparent distress there is no fever or chills no headache or dizziness no chest pain no shortness of breath no cough no nausea or vomiting no abdominal pain no diarrhea and no urinary symptoms, she is still complaining of left knee pain at this time will check knee x-ray and consult orthopedic surgery On 07/04/2019 patient was seen and examined on the medical floor she is drowsy but responsive, answering a few questions at the time then closes her eyes, th ere is no fever or chills no headache or dizziness no chest pain no shortness of breath no cough no nausea or vomiting no abdominal pain no diarrhea and no urinary symptoms, patient mostly complaining of left lower extremity pain. On 07/05/2019 patient was seen and examined on the medical floor she is alert and responsive in no apparent distress there is no fever or chills no headache or dizziness no chest pain no shortness of breath no cough no nausea or vomiting no abdominal pain no diarrhea no burning with urination no frequency or urgency and no hematuria. White blood count is improving gradually, patient is still complaining of left lower extremity pain, otherwise no complaints at this time On 07/06/2019 patient was seen and examined on the medical floor she is more alert and responsive today she is complaining of feeling depressed she is complaining of pain mostly in her left lower extremity otherwise she denies any complaints there is no fever or chills no headache or dizziness no chest pain no shortness of breath no cough no nausea or vomiting no abdominal pain no diarrhea and no urinary symptoms. On 07/07/2019 patient was seen and examined on the medical floor she is alert and oriented 3 answering questions appropriately today she states she is feeling better, patient had a midline placed in her arm today, case discussed with infectious disease she would need 1 more week of the daptomycin were [facility] Objective - Vital Signs Vital signs: Vital Signs Temp 98.1 F 07/07/19 13:51 Pulse 95 07/07/19 13:51 Resp 20 07/07/19 13:51 BP 158/87 07/07/19 13:51 Pulse Ox 96 07/07/19 13:51 Intake & Output 07/06/19 07/07/19 07/07/19 18:59 06:59 18:59 Intake Total 100 450 Output Total 350 775 Balance -350 -675 450 Weight 109.5 kg Intake: Intake, IV Titration 450 Amount DAPTOmycin 500 mg In 450 Sodium Chloride 0.9% 50 ml @ 100 mls/hr IVPB Q24H REPLACED BY [facility] Rx#:[id number] Oral 100 Output: Urine 350 775 Other: Voiding Method Indwelling Catheter Indwelling Catheter Indwelling Catheter # Bowel Movements 2 - Exam In general patient is somnolent responsive answering questions by yes or no and quickly goes back to closing her eyes HEENT with significant trauma and hematoma to the face Neck is supple no JVD no goiter no lymphadenopathy Chest exam reveals a few scattered rhonchi no wheezing Cardiac exam reveals regular heart sounds S1 and S2 with tachycardia no gallops no murmurs Abdomen is soft nontender no organomegaly with normal bowel sounds Extremity exam reveals right above-knee amputation and left was 2+ edema, slightly improving Neurological examination mental status as above otherwise no focal neurological deficit at this time - Labs CBC & Chem 7: 07/07/19 07:06 07/07/19 07:06 Labs: Abnormal Lab Results - Last 24 Hours (Table) 07/07/19 07/07/19 Range/Units 07:06 07:06 WBC 11.1 H (3.8-10.6) k/uL RBC 2.74 L (3.80-5.40) m/uL Hgb 8.2 L (11.4-16.0) gm/dL Hct 26.6 L (34.0-46.0) % RDW 17.0 H (11.5-15.5) % Plt Count 669 H (150-450) k/uL Neutrophils # 9.3 H (1.3-7.7) k/uL Lymphocytes # 0.9 L (1.0-4.8) k/uL Sodium 134 L (137-145) mmol/L Carbon Dioxide 31 H (22-30) mmol/L Creatinine 0.49 L (0.52-1.04) mg/dL AST 61 H (14-36) U/L ALT 83 H (4-34) U/L Alkaline Phosphatase 155 H (38-126) U/L Total Protein 6.2 L (6.3-8.2) g/dL Albumin 2.6 L (3.5-5.0) g/dL Assessment and Plan Plan: 1. Recent fall with head trauma 5 days ago with computed tomography scan revealing minimal subarachnoid hemorrhage and possible intra-parenchymal hemorrhage in the right periventricular white matter. At this time aspirin and Coumadin are held, neurology consultation was requested. I have discussed this case in details with her son who is the power of commonwealth attorney at this time. Decision at this time is not to transfer patient to a tertiary care center due to the fact that trauma happened 5 days ago and due to current conditions with Covid 19 epidemic. Son is in agreement not to transfer patient. 2. Urinary tract infection with sepsis, urine culture and blood cultures requested, patient started on IV Rocephin, infectious disease consultation requested 3. Mental status changes, due to metabolic encephalopathy related to sepsis, and possibly to intracranial bleeding, will monitor closely 4. Underlying history of hypertention, home blood pressure medication are resumed will monitor 5. Tachycardia, will give fluid bolus 250 mL and reassess medications including metoprolol were resumed 6. Febrile illness was temperature of 102, could be related to urinary tract infection however will check Covid 19 Will consult infectious disease 7. 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 8. Previous history of DVT and PE maintained on Coumadin at this time Coumadin is on hold Will resume when advised by neurology 9. Underlying history of anemia. With worsening anemia during this admission requiring multiple red blood cell transfusion, most likely due to acute bleeding, gastroenterology and hematology are following. 10. Swallowing difficulty, speech therapy following, medication with large pills or medications that are not supposed to be crushed need to be changed due to patient unable to swallow, we change imdur to nitroglycerin patch, discontinue oral iron and give 1 dose of IV iron today, change metoprolol to succinate to metoprolol tartrate twice daily. 11. Protein calorie malnutrition continue with protein supplements orally, we will give 1 dose of IV albumin today followed by IV Lasix due to generalized anasarca 12. Left knee pain with large bruising since admission [facility], patient is still complaining of pain at this time, will obtain x-ray Will consult orthopedic surgery. At this time patient is admitted to telemetry floor, she is started on IV fluid and IV antibiotics Neurology consultation and infectious disease consultation are requested Coumadin and aspirin are on hold, will recheck INR in a.m. Will check CBC and CMP in a.m. At this time patient remains a full code which was discussed with her son twice during this admission. Prognosis is guarded
--- NOTE | 2019-07-07 16:23 | PN ---
PROGRESS NOTE DATE OF SERVICE: 07/07/2019 REASON FOR FOLLOWUP: Right BKA stump wound and cellulitis. INTERVAL HISTORY: The patient is currently afebrile. She is breathing comfortably. She seems to be slightly more awake, alert, complaining of some shortness of breath, but no chest pain or cough. No abdominal pain or diarrhea has been reported. PHYSICAL EXAMINATION: On examination, her blood pressure is 152/85 with a pulse of 95, temperature 98.1. She is 96% on 3 L nasal cannula. General description is an elderly female lying in bed in no distress. RESPIRATORY SYSTEM: Unlabored breathing. Clear to auscultation anteriorly. HEART: S1, S2. Regular rate and rhythm. ABDOMEN: Soft. No tenderness. LABS: Hemoglobin 8.2, white count 11.1, BUN of 10, creatinine 0.49. DIAGNOSTIC IMPRESSION AND PLAN: 1. Patient with a urinary tract infection and pneumonia, adequately treated. 2. Patient with possible right lower extremity wound and cellulitis; clinically responded to daptomycin, which she will continue through her midline for another week. Close outpatient followup. MMODL / IJN: [id number] /
[2019-07-07] MEDS: DAPTOmycin 500 MG in SODIUM CHLORIDE 0.9% 50 ML IVPB SCH (17:01)
--- NOTE | 2019-07-07 18:14 | P.PN ---
Subjective Progress Note Date: 07/07/19 Principal diagnosis: Elevated liver enzymes, subarachnoid hemorrhage Patient seen lying in bed in no acute complaints. No abdominal pain, she is tolerating her diet. Objective - Vital Signs Vital signs: Vital Signs Temp 98.1 F 07/07/19 13:51 Pulse 95 07/07/19 13:51 Resp 20 07/07/19 13:51 BP 158/87 07/07/19 13:51 Pulse Ox 96 07/07/19 13:51 Intake & Output 07/06/19 07/07/19 07/07/19 18:59 06:59 18:59 Intake Total 100 450 Output Total 350 775 Balance -350 -675 450 Weight 109.5 kg Intake: Intake, IV Titration 450 Amount DAPTOmycin 500 mg In 450 Sodium Chloride 0.9% 50 ml @ 100 mls/hr IVPB Q24H [facility] Rx#:[id number] Oral 100 Output: Urine 350 775 Other: Voiding Method Indwelling Catheter Indwelling Catheter Indwelling Catheter # Bowel Movements 2 - Exam On physical examination, patient appears comfortable in no apparent distress. HEAD: Normocephalic, atraumatic. EYES: No scleral icterus. No conjunctival injection. MOUTH: No lesions, tongue midline. ABDOMEN: Soft, obese. Bowel sounds are positive. No organomegaly. No guarding or rigidity. EXTREMITIES: No pedal edema. SKIN: No rashes, no jaundice. - Labs CBC & Chem 7: 07/07/19 07:06 07/07/19 07:06 Labs: Abnormal Lab Results - Last 24 Hours (Table) 07/07/19 07/07/19 Range/Units 07:06 07:06 WBC 11.1 H (3.8-10.6) k/uL RBC 2.74 L (3.80-5.40) m/uL Hgb 8.2 L (11.4-16.0) gm/dL Hct 26.6 L (34.0-46.0) % RDW 17.0 H (11.5-15.5) % Plt Count 669 H (150-450) k/uL Neutrophils # 9.3 H (1.3-7.7) k/uL Lymphocytes # 0.9 L (1.0-4.8) k/uL Sodium 134 L (137-145) mmol/L Carbon Dioxide 31 H (22-30) mmol/L Creatinine 0.49 L (0.52-1.04) mg/dL AST 61 H (14-36) U/L ALT 83 H (4-34) U/L Alkaline Phosphatase 155 H (38-126) U/L Total Protein 6.2 L (6.3-8.2) g/dL Albumin 2.6 L (3.5-5.0) g/dL Assessment and Plan (1) Elevated liver enzymes Narrative/Plan: 73-year-old female presented to the hospital with multiple medical complaints. Currently being treated for a UTI she was found to have elevation in her liver enzymes of unknown etiology. Viral hepatitis testing has all been negative. Suspicion is for elevation of liver enzymes secondary to antibiotics, may also be secondary to septicemia or other etiology. Current Visit: Yes Status: Acute Code(s): R74.8 - ABNORMAL LEVELS OF OTHER SERUM ENZYMES SNOMED Code(s): 175433867 (2) Acute blood loss anemia Current Visit: Yes Status: Acute Priority: High Code(s): D62 - ACUTE POSTHEMORRHAGIC ANEMIA SNOMED Code(s): 977975677 Plan: Supportive care Continue to monitor CBC, CMP, LFTs Okay for diet as tolerated Avoid hepatotoxic medications Continue other medical management Liver serology negative to date Thank you for allowing us to participate in care of the patient
--- NOTE | 2019-07-07 18:38 | P.PN ---
Subjective Progress Note Date: 07/07/19 Principal diagnosis: fall Hemoglobin 8.2 today. She is a little more alert today and less anxious Objective - Vital Signs Vital signs: Vital Signs Temp 98.1 F 07/07/19 13:51 Pulse 95 07/07/19 13:51 Resp 20 07/07/19 13:51 BP 158/87 07/07/19 13:51 Pulse Ox 96 07/07/19 13:51 Intake & Output 07/06/19 07/07/19 07/07/19 18:59 06:59 18:59 Intake Total 100 450 Output Total 350 775 Balance -350 -675 450 Weight 109.5 kg Intake: Intake, IV Titration 450 Amount DAPTOmycin 500 mg In 450 Sodium Chloride 0.9% 50 ml @ 100 mls/hr IVPB Q24H [facility] Rx#:[id number] Oral 100 Output: Urine 350 775 Other: Voiding Method Indwelling Catheter Indwelling Catheter Indwelling Catheter # Bowel Movements 2 - Exam Gen: ALert Head: Right large trauma bump, dried blood Neck Supple Lungs: No increased effort HEart: Irrg Abd Obese Skin: Erythema rash, no pupulars bilateral arms and LLE Ext: R Amputation Neuro: Non-focal Mood Calm - Labs CBC & Chem 7: 07/07/19 07:06 07/07/19 07:06 Labs: Abnormal Lab Results - Last 24 Hours (Table) 07/07/19 07/07/19 Range/Units 07:06 07:06 WBC 11.1 H (3.8-10.6) k/uL RBC 2.74 L (3.80-5.40) m/uL Hgb 8.2 L (11.4-16.0) gm/dL Hct 26.6 L (34.0-46.0) % RDW 17.0 H (11.5-15.5) % Plt Count 669 H (150-450) k/uL Neutrophils # 9.3 H (1.3-7.7) k/uL Lymphocytes # 0.9 L (1.0-4.8) k/uL Sodium 134 L (137-145) mmol/L Carbon Dioxide 31 H (22-30) mmol/L Creatinine 0.49 L (0.52-1.04) mg/dL AST 61 H (14-36) U/L ALT 83 H (4-34) U/L Alkaline Phosphatase 155 H (38-126) U/L Total Protein 6.2 L (6.3-8.2) g/dL Albumin 2.6 L (3.5-5.0) g/dL Assessment and Plan Plan: Assessment and Recommendations: Normocytic Anemia: - Acute on Chronic - Multifactoral - Baseline 10-11 - Acute blood loss from recent fall and possible exacerbated by inflammation - Full work up ordered - Per Neurology AC therapy on hold - Transfuse less than 7 - Iron deficiency component, Status PostIV Iron Thrombocytosis: Reactive HX: PE/DVT: - AC held per Neuro - IVC filter placed - Continue and Hold at this time, reassess at outpatient if restarting AC therapy is recommened - High risk for falls and recent Subarach bleed Coagulopathy:Improved - Monitor Coags Leukocytosis: Likely reactive - COVID neg Physician Attestation: I have performed the full physical examination and reviewed the full history of this patient, as well as pertinent findings. I have created the compled impression and recommendations. I agree with the above dictation by ROB Sharma. This dictation has been written as a scribe.
[2019-07-07] MEDS: ACETAMINOPHEN TAB 500 MG TAB PO PRN (19:45)
[2019-07-07] MEDS: ALLOPURINOL 300 MG TAB PO SCH (21:48)
[2019-07-07] MEDS: FOLIC ACID 1 MG TAB PO SCH (21:49)
[2019-07-07] MEDS: MULTIVITAMINS, THERA 1 EACH TAB PO SCH (21:50)
[2019-07-08] MEDS: PANTOPRAZOLE 40 MG TABLET PO SCH (06:21)
[2019-07-08] MEDS: CYANOCOBALAMIN 500 MCG TAB PO SCH (07:41)
[2019-07-08] MEDS: METOPROLOL TARTRATE 25 MG TAB PO SCH ×2 (07:41→21:04)
[2019-07-08] MEDS: MAGNESIUM OXIDE 400 MG TAB PO SCH ×2 (07:41→21:04)
[2019-07-08] MEDS: LISINOPRIL 20 MG TAB PO SCH ×2 (07:41→17:36)
[2019-07-08] MEDS: PARoxetine 10 MG TAB PO SCH ×2 (07:41→17:36)
[2019-07-08] MEDS: CALCIUM CARB-VIT D 500MG-200UN 1 EACH TAB PO SCH ×2 (07:41→21:04)
[2019-07-08] MEDS: PYRIDOXINE 50 MG TAB PO SCH (07:42)
[2019-07-08] MEDS: POTASSIUM BICARBONATE/CIT AC 20 MEQ TABLET.EFF PO SCH (07:42)
[2019-07-08] MEDS: NITROGLYCERIN 0.3MG/HR PATCH TRANSDERM SCH (07:42)
[2019-07-08] MEDS: ACETAMINOPHEN TAB 500 MG TAB PO PRN ×2 (07:48→15:42)
[2019-07-08 08:04] LABS: Anisocytosis Slight; Basophils % (A) 0 %; Eosinophils # (A) 0.2 k/uL (0-0.7); Eosinophils % (A) 2 %; HCT 26.3 % (34.0-46.0); HGB 8.3 gm/dL (11.4-16.0); Hypochromasia Moderate; Lymphocytes % (A) 10 %; MCH 29.9 pg (25.0-35.0); MCHC 31.7 g/dL (31.0-37.0); MCV 94.1 fL (80.0-100.0); Mean Platelet Volume 8.9; Monocytes # (A) 0.6 k/uL (0-1.0); Monocytes % (A) 7 %; Neutrophils # (A) 7.5 k/uL (1.3-7.7); Neutrophils % (A) 78 %; Poikilocytosis Slight; RBC 2.79 m/uL (3.80-5.40); RDW 16.8 % (11.5-15.5); WBC 9.6 k/uL (3.8-10.6)
[2019-07-08 08:05] LABS: ALT 58 U/L (4-34); AST 51 U/L (14-36); African American GFR (CKD) >90 (>60 ml/min/1.73 sqM); Albumin 2.8 g/dL (3.5-5.0); Alkaline Phosphatase 139 U/L (38-126); Anion Gap 4 mmol/L; Blood Urea Nitrogen 11 mg/dL (7-17); Calcium 8.7 mg/dL (8.4-10.2); Carbon Dioxide 31 mmol/L (22-30); Chloride 100 mmol/L (98-107); Glucose 88 mg/dL (74-99); Non-African American GFR(CKD) >90 (>60 ml/min/1.73 sqM); Platelet Count 718 k/uL (150-450); Sodium 135 mmol/L (137-145); Total Bilirubin 0.9 mg/dL (0.2-1.3); Total Protein 6.7 g/dL (6.3-8.2)
[2019-07-08 08:24] LABS: Potassium 6.8 mmol/L (3.5-5.1)
[2019-07-08] MEDS ORDERED: SODIUM POLYSTYRENE SULFONATE 15 GM/60 ML BOTTLE PO STA (08:44)
--- NOTE | 2019-07-08 10:04 | P.PN ---
Subjective Progress Note Date: 07/08/19 Maria Teresa Celeste is a 73-year-old female resident of [facility] on the [facility] who sustained a fall with head trauma on 06/18/2019 at that time she was sent to emergency room and had a computed tomography scan of the brain and the cervical spine without contrast, she had evidence of a large frontal scalp hematoma and right periorbital hematoma but no intracranial bleeding, she was sent back to [facility] on the [facility]. On 06/22/2019 patient was noticed to have worsening mental status was more somnolence and less responsiveness by the nursing staff she was sent back to emergency room repeat computed tomography scan of the brain revealed evidence of minimal subarachnoid hemorrhage and possible intraparenchymal hemorrhage in the right periventricular white matter. Possibility of transferring patient to a tertiary care center was discussed in details in the emergency room, however due to the fact that trauma happened several days ago, and due to the fact that there is an epidemic of Covid 19 infection which is making it very difficult to transfer patient to [facility], and due to patient age and comorbidities which makes intracranial intervention exceedingly difficult, decision was made not to proceed with transferring patient, her son, (and current power of criminal defense attorney since her earlier this month) who was in the emergency room was in agreement of this decision. Patient was admitted to telemetry floor and neurology consultation was requested. Patient has a known history of DVT and PE, she was maintained on aspirin and Coumadin, these medications are now on hold. Patient also had evidence of urinary tract infection with sepsis as evidenced by temperature of 102.1 and leukocytosis white blood count was 14.0 and tachycardia was heart rate of 123 Patient will be given a fluid bolus lactic acid level was ordered but not resulted yet, she was given a dose of IV Rocephin in the emergency room Infectious disease consultation was requested, Covid 19 testing will be done due to elevated temperature On 06/23/2019 patient was seen and examined on the medical floor she is somnolent and responsive she answers questions briefly but goes back to sleep she is denying any pain or discomfort at this time she is denying shortness of breath or cough she is still having spikes of temperature to 102.4 neurology input reviewed will restart Coumadin tomorrow. On 06/24/2019 patient was seen and examined on the medical floor she is more alert and responsive today, white blood count is up to 15.4 hemoglobin 6.0 at this time Coumadin will be held again she will receive 1 unit of red blood cell transfusion then recheck CBC. Covid 19 testing is still pending patient is still having spikes of temperature or fever this morning was 100.7 she still has tachycardia and low oxygen saturation of 89% on room air On 06/25/2019 patient was seen and examined on the medical floor she is somnolent opens eyes and responsive to stimuli and answers few questions with yes or no" since her eyes again she is still having some fever liver enzymes are more elevated today, white blood count is improving, she is still maintained on IV antibiotic for urinary tract infection albumin level is lower at 2.7 patient has poor oral intake On 06/26/2019 patient was seen and examined on the medical floor she is more alert and responsive today she is answering questions appropriately there is no fever or chills no headache or dizziness no chest pain or shortness of breath no cough no nausea or vomiting no abdominal pain no diarrhea and no urinary symptoms. On 06/27/2019 patient was seen and examined on the medical floor she is alert responsive to stimuli and answers few questions and closes her eyes there is no fever or chills no headache or dizziness no chest pain no shortness of breath no cough, no nausea or vomiting no abdominal pain no diarrhea no burning was urination no frequency or urgency and no hematuria, white blood count is increasing up to 32.9 patient is maintained on Zosyn and vancomycin, infectious disease following On 06/28/2019 A shouldn't was seen and examined on the medical floor she is alert responsive in no apparent distress there is no fever or chills no headache or dizziness no chest pain no shortness of breath no cough no nausea or vomiting no abdominal pain no diarrhea and no urinary symptoms she is complaining of left lower extremity pain white blood count is still significantly elevated at 31 INR is elevated at 5.7 patient is not on any Coumadin at this time a dose of vitamin K orally will be given On 06/29/2019 patient was seen and examined on the medical floor she is more alert today however she is confused there is no fever or chills no headache or dizziness no chest pain no shortness of breath no cough no nausea or vomiting no abdominal pain no diarrhea and no urinary symptoms, hemoglobin today is down to 6.21 unit of red blood cell transfusion was ordered INR is 2.6 patient is not on any Coumadin she received vitamin K yesterday On 06/30/2019 patient is more alert today and responding to questions appropriately there is no fever or chills no headache or dizziness no chest pain no shortness of breath no cough no nausea or vomiting no abdominal pain no diarrhea and no urinary symptoms patient is complaining of left lower extremity pain she has a large bruise on the left knee area, INR today is 1.5 hemoglobin 8.1 On 07/01/2019 patient was seen and examined on the medical floor she is alert a nd responding to few questions then closes her eyes she is complaining of pain in the left knee area otherwise no complaints she has a large hematoma on the knee, there is no fever or chills no chest pain or shortness of breath no cough no nausea or vomiting no abdominal pain no diarrhea and no urinary symptoms. On 07/02/2019 patient was seen and examined on the medical floor she is alert slightly confused in no apparent distress there is no fever or chills no headache or dizziness no chest pain no shortness of breath no cough no nausea or vomiting no abdominal pain no diarrhea and no urinary symptoms On 07/03/2019 patient was seen and examined on the medical floor she is doing slightly better she is alert and responsive in no apparent distress there is no fever or chills no headache or dizziness no chest pain no shortness of breath no cough no nausea or vomiting no abdominal pain no diarrhea and no urinary symptoms, she is still complaining of left knee pain at this time will check knee x-ray and consult orthopedic surgery On 07/04/2019 patient was seen and examined on the medical floor she is drowsy but responsive, answering a few questions at the time then closes her eyes, th ere is no fever or chills no headache or dizziness no chest pain no shortness of breath no cough no nausea or vomiting no abdominal pain no diarrhea and no urinary symptoms, patient mostly complaining of left lower extremity pain. On 07/05/2019 patient was seen and examined on the medical floor she is alert and responsive in no apparent distress there is no fever or chills no headache or dizziness no chest pain no shortness of breath no cough no nausea or vomiting no abdominal pain no diarrhea no burning with urination no frequency or urgency and no hematuria. White blood count is improving gradually, patient is still complaining of left lower extremity pain, otherwise no complaints at this time On 07/06/2019 patient was seen and examined on the medical floor she is more alert and responsive today she is complaining of feeling depressed she is complaining of pain mostly in her left lower extremity otherwise she denies any complaints there is no fever or chills no headache or dizziness no chest pain no shortness of breath no cough no nausea or vomiting no abdominal pain no diarrhea and no urinary symptoms. On 07/07/2019 patient was seen and examined on the medical floor she is alert and oriented 3 answering questions appropriately today she states she is feeling better, patient had a midline placed in her arm today, case discussed with infectious disease she would need 1 more week of the daptomycin were planning on discharge back to the [facility] tomorrow. On 07/08/2019 patient was seen and examined on the medical floor she is alert and oriented in no apparent distress she is still complaining of diarrhea, potassium today is up to 6.8 she is still complaining of pain in the left lower extremity otherwise no complaints at this time, due to all above we are giving Kayexalate today, rechecking potassium this afternoon, delayed transfer to [facility] until Wednesday. Objective - Vital Signs Vital signs: Vital Signs Temp 98.0 F 07/08/19 06:33 Pulse 82 07/08/19 06:33 Resp 20 07/08/19 06:33 BP 164/78 07/08/19 06:33 Pulse Ox 98 07/08/19 06:33 Intake & Output 07/07/19 07/08/19 07/08/19 18:59 06:59 18:59 Intake Total 690 Output Total 500 1000 Balance 190 -1000 Weight 109.5 kg Intake: Intake, IV Titration 450 Amount DAPTOmycin 500 mg In 450 Sodium Chloride 0.9% 50 ml @ 100 mls/hr IVPB Q24H [facility] Rx#:[id number] Oral 240 Output: Urine 500 1000 Straight 400 Other: Voiding Method Indwelling Catheter Indwelling Catheter - Exam In general patient is somnolent responsive answering questions by yes or no and quickly goes back to closing her eyes HEENT with significant trauma and hematoma to the face Neck is supple no JVD no goiter no lymphadenopathy Chest exam reveals a few scattered rhonchi no wheezing Cardiac exam reveals regular heart sounds S1 and S2 with tachycardia no gallops no murmurs Abdomen is soft nontender no organomegaly with normal bowel sounds Extremity exam reveals right above-knee amputation and left was 2+ edema, slightly improving Neurological examination mental status as above otherwise no focal neurological deficit at this time - Labs CBC & Chem 7: 07/08/19 06:57 07/08/19 06:57 Labs: Abnormal Lab Results - Last 24 Hours (Table) 07/07/19 07/08/19 07/08/19 Range/Units 07:06 06:57 06:57 WBC 11.1 H (3.8-10.6) k/uL RBC 2.74 L 2.79 L (3.80-5.40) m/uL Hgb 8.2 L 8.3 L (11.4-16.0) gm/dL Hct 26.6 L 26.3 L (34.0-46.0) % RDW 17.0 H 16.8 H (11.5-15.5) % Plt Count 669 H 718 H (150-450) k/uL Neutrophils # 9.3 H (1.3-7.7) k/uL Lymphocytes # 0.9 L (1.0-4.8) k/uL Sodium 135 L (137-145) mmol/L Potassium 6.8 H* (3.5-5.1) mmol/L Carbon Dioxide 31 H (22-30) mmol/L AST 51 H (14-36) U/L ALT 58 H (4-34) U/L Alkaline Phosphatase 139 H (38-126) U/L Albumin 2.8 L (3.5-5.0) g/dL Assessment and Plan Plan: 1. Recent fall with head trauma 5 days ago with computed tomography scan revealing minimal subarachnoid hemorrhage and possible intra-parenchymal hemorrhage in the right periventricular white matter. At this time aspirin and Coumadin are held, neurology consultation was requested. I have discussed this case in details with her son who is the power of criminal defense attorney at this time. Decision at this time is not to transfer patient to a tertiary care center due to the fact that trauma happened 5 days ago and due to current conditions with Covid 19 epidemic. Son is in agreement not to transfer patient. 2. Urinary tract infection with sepsis, urine culture and blood cultures requested, patient started on IV Rocephin, infectious disease consultation requested 3. Mental status changes, due to metabolic encephalopathy related to sepsis, and possibly to intracranial bleeding, will monitor closely 4. Underlying history of hypertention, home blood pressure medication are resumed will monitor 5. Tachycardia, will give fluid bolus 250 mL and reassess medications including metoprolol were resumed 6. Febrile illness was temperature of 102, could be related to urinary tract infection however will check Covid 19 Will consult infectious disease 7. 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 8. Previous history of DVT and PE maintained on Coumadin at this time Coumadin is on hold Will resume when advised by neurology 9. Underlying history of anemia. With worsening anemia during this admission requiring multiple red blood cell transfusion, most likely due to acute bleeding, gastroenterology and hematology are following. 10. Swallowing difficulty, speech therapy following, medication with large pills or medications that are not supposed to be crushed need to be changed due to patient unable to swallow, we change imdur to nitroglycerin patch, discont inue oral iron and give 1 dose of IV iron today, change metoprolol to succinate to metoprolol tartrate twice daily. 11. Protein calorie malnutrition continue with protein supplements orally, we will give 1 dose of IV albumin today followed by IV Lasix due to generalized anasarca 12. Left knee pain with large bruising since admission patient had a fall at the [facility], patient is still complaining of pain at this time, will obtain x-ray Will consult orthopedic surgery. 13. Hyperkalemia correcting with Kayexalate At this time patient is admitted to telemetry floor, she is started on IV fluid and IV antibiotics Neurology consultation and infectious disease consultation are requested Coumadin and aspirin are on hold, will recheck INR in a.m. Will check CBC and CMP in a.m. At this time patient remains a full code which was discussed with her son twice during this admission. Prognosis is guarded
[2019-07-08] MEDS: SODIUM CHLORIDE 0.9% 1,000 ML IV SCH (12:36)
[2019-07-08] MEDS: DAPTOmycin 500 MG in SODIUM CHLORIDE 0.9% 50 ML IVPB SCH (15:41)
[2019-07-08] MEDS: FOLIC ACID 1 MG TAB PO SCH (21:04)
[2019-07-08] MEDS: MULTIVITAMINS, THERA 1 EACH TAB PO SCH (21:04)
[2019-07-08] MEDS: ALLOPURINOL 300 MG TAB PO SCH (21:04)
--- NOTE | 2019-07-09 00:08 | PN ---
PROGRESS NOTE DATE OF SERVICE: 07/08/2019 REASON FOR FOLLOW UP: Right lower extremity wound, possible cellulitis. INTERVAL HISTORY: The patient is currently afebrile, has been breathing comfortably. Denies having any chest pain or cough. No nausea, vomiting, abdominal pain. Pain in the right lower extremity wound area. PHYSICAL EXAMINATION: Blood pressure is 153/89 with a pulse of 97, temperature 98.4. She is 99% on room air. General description: The patient is an elderly female up in the chair up in the bed in no distress. Respiratory system: Unlabored breathing. Clear to auscultation anteriorly. Heart S1, S2 regular rate and rhythm. Abdomen soft, no tenderness. The right BKA stump with minimal slough. No surrounding redness or drainage. LABS: Hemoglobin 8.8, white count 9.6, BUN of 11, creatinine 0.56. DIAGNOSTIC IMPRESSION AND PLAN: 1. Patient with admission to the hospital with a fever in this patient who did have initial urinary tract infection and pneumonia that has been adequately treated. 2. Patient with possible right leg wound with cellulitis. Patient clinically responded to the daptomycin and white count has normalized. She will continue for few days to finish a course of therapy. Local care with dry Aquacel Silver dressing. 3. Continue supportive care. MMODL / IJN: [id number] /
[2019-07-09] MEDS: PANTOPRAZOLE 40 MG TABLET PO SCH (05:33)
[2019-07-09 07:25] LABS: Anisocytosis Slight; Basophils % (A) 0 %; Eosinophils # (A) 0.3 k/uL (0-0.7); Eosinophils % (A) 3 %; HCT 26.5 % (34.0-46.0); HGB 8.4 gm/dL (11.4-16.0); Hypochromasia Slight; Lymphocytes # (A) 1.1 k/uL (1.0-4.8); Lymphocytes % (A) 13 %; MCH 29.9 pg (25.0-35.0); MCHC 31.8 g/dL (31.0-37.0); MCV 93.7 fL (80.0-100.0); Mean Platelet Volume 8.6; Monocytes # (A) 0.5 k/uL (0-1.0); Monocytes % (A) 6 %; Neutrophils # (A) 6.5 k/uL (1.3-7.7); Neutrophils % (A) 76 %; Platelet Count 691 k/uL (150-450); Poikilocytosis Slight; RBC 2.83 m/uL (3.80-5.40); RDW 16.6 % (11.5-15.5); WBC 8.6 k/uL (3.8-10.6)
[2019-07-09 07:34] LABS: ALT 43 U/L (4-34); AST 40 U/L (14-36); African American GFR (CKD) >90 (>60 ml/min/1.73 sqM); Albumin 2.6 g/dL (3.5-5.0); Alkaline Phosphatase 138 U/L (38-126); Anion Gap 2 mmol/L; Blood Urea Nitrogen 10 mg/dL (7-17); Calcium 8.8 mg/dL (8.4-10.2); Carbon Dioxide 31 mmol/L (22-30); Chloride 103 mmol/L (98-107); Glucose 89 mg/dL (74-99); Non-African American GFR(CKD) >90 (>60 ml/min/1.73 sqM); Potassium 4.8 mmol/L (3.5-5.1); Sodium 136 mmol/L (137-145); Total Bilirubin 0.8 mg/dL (0.2-1.3); Total Protein 6.2 g/dL (6.3-8.2)
[2019-07-09] MEDS: METOPROLOL TARTRATE 25 MG TAB PO SCH ×2 (07:54→21:51)
[2019-07-09] MEDS: CYANOCOBALAMIN 500 MCG TAB PO SCH (07:54)
[2019-07-09] MEDS: LISINOPRIL 20 MG TAB PO SCH ×2 (07:54→17:36)
[2019-07-09] MEDS: PARoxetine 10 MG TAB PO SCH ×2 (07:54→17:35)
[2019-07-09] MEDS: CALCIUM CARB-VIT D 500MG-200UN 1 EACH TAB PO SCH ×2 (07:54→21:51)
[2019-07-09] MEDS: PYRIDOXINE 50 MG TAB PO SCH (07:55)
[2019-07-09] MEDS: MAGNESIUM OXIDE 400 MG TAB PO SCH ×2 (07:55→21:51)
[2019-07-09] MEDS: NITROGLYCERIN 0.3MG/HR PATCH TRANSDERM SCH (07:56)
--- NOTE | 2019-07-09 13:49 | P.PN ---
Subjective Progress Note Date: 07/09/19 Maria Teresa Celeste is a 73-year-old female resident of [facility] on the [facility] who sustained a fall with head trauma on 06/18/2019 at that time she was sent to emergency room and had a computed tomography scan of the brain and the cervical spine without contrast, she had evidence of a large frontal scalp hematoma and right periorbital hematoma but no intracranial bleeding, she was sent back to [facility] on the [facility]. On 06/22/2019 patient was noticed to have worsening mental status was more somnolence and less responsiveness by the nursing staff she was sent back to emergency room repeat computed tomography scan of the brain revealed evidence of minimal subarachnoid hemorrhage and possible intraparenchymal hemorrhage in the right periventricular white matter. Possibility of transferring patient to a tertiary care center was discussed in details in the emergency room, however due to the fact that trauma happened several days ago, and due to the fact that there is an epidemic of Covid 19 infection which is making it very difficult to transfer patient to [facility], and due to patient age and comorbidities which makes intracranial intervention exceedingly difficult, decision was made not to proceed with transferring patient, her son, (and current power of attorney general since her earlier this month) who was in the emergency room was in agreement of this decision. Patient was admitted to telemetry floor and neurology consultation was requested. Patient has a known history of DVT and PE, she was maintained on aspirin and Coumadin, these medications are now on hold. Patient also had evidence of urinary tract infection with sepsis as evidenced by temperature of 102.1 and leukocytosis white blood count was 14.0 and tachycardia was heart rate of 123 Patient will be given a fluid bolus lactic acid level was ordered but not resulted yet, she was given a dose of IV Rocephin in the emergency room Infectious disease consultation was requested, Covid 19 testing will be done due to elevated temperature On 06/23/2019 patient was seen and examined on the medical floor she is somnolent and responsive she answers questions briefly but goes back to sleep she is denying any pain or discomfort at this time she is denying shortness of breath or cough she is still having spikes of temperature to 102.4 neurology input reviewed will restart Coumadin tomorrow. On 06/24/2019 patient was seen and examined on the medical floor she is more alert and responsive today, white blood count is up to 15.4 hemoglobin 6.0 at this time Coumadin will be held again she will receive 1 unit of red blood cell transfusion then recheck CBC. Covid 19 testing is still pending patient is still having spikes of temperature or fever this morning was 100.7 she still has tachycardia and low oxygen saturation of 89% on room air On 06/25/2019 patient was seen and examined on the medical floor she is somnolent opens eyes and responsive to stimuli and answers few questions with yes or no" since her eyes again she is still having some fever liver enzymes are more elevated today, white blood count is improving, she is still maintained on IV antibiotic for urinary tract infection albumin level is lower at 2.7 patient has poor oral intake On 06/26/2019 patient was seen and examined on the medical floor she is more alert and responsive today she is answering questions appropriately there is no fever or chills no headache or dizziness no chest pain or shortness of breath no cough no nausea or vomiting no abdominal pain no diarrhea and no urinary symptoms. On 06/27/2019 patient was seen and examined on the medical floor she is alert responsive to stimuli and answers few questions and closes her eyes there is no fever or chills no headache or dizziness no chest pain no shortness of breath no cough, no nausea or vomiting no abdominal pain no diarrhea no burning was urination no frequency or urgency and no hematuria, white blood count is increasing up to 32.9 patient is maintained on Zosyn and vancomycin, infectious disease following On 06/28/2019 A shouldn't was seen and examined on the medical floor she is alert responsive in no apparent distress there is no fever or chills no headache or dizziness no chest pain no shortness of breath no cough no nausea or vomiting no abdominal pain no diarrhea and no urinary symptoms she is complaining of left lower extremity pain white blood count is still significantly elevated at 31 INR is elevated at 5.7 patient is not on any Coumadin at this time a dose of vitamin K orally will be given On 06/29/2019 patient was seen and examined on the medical floor she is more alert today however she is confused there is no fever or chills no headache or dizziness no chest pain no shortness of breath no cough no nausea or vomiting no abdominal pain no diarrhea and no urinary symptoms, hemoglobin today is down to 6.21 unit of red blood cell transfusion was ordered INR is 2.6 patient is not on any Coumadin she received vitamin K yesterday On 06/30/2019 patient is more alert today and responding to questions appropriately there is no fever or chills no headache or dizziness no chest pain no shortness of breath no cough no nausea or vomiting no abdominal pain no diarrhea and no urinary symptoms patient is complaining of left lower extremity pain she has a large bruise on the left knee area, INR today is 1.5 hemoglobin 8.1 On 07/01/2019 patient was seen and examined on the medical floor she is alert a nd responding to few questions then closes her eyes she is complaining of pain in the left knee area otherwise no complaints she has a large hematoma on the knee, there is no fever or chills no chest pain or shortness of breath no cough no nausea or vomiting no abdominal pain no diarrhea and no urinary symptoms. On 07/02/2019 patient was seen and examined on the medical floor she is alert slightly confused in no apparent distress there is no fever or chills no headache or dizziness no chest pain no shortness of breath no cough no nausea or vomiting no abdominal pain no diarrhea and no urinary symptoms On 07/03/2019 patient was seen and examined on the medical floor she is doing slightly better she is alert and responsive in no apparent distress there is no fever or chills no headache or dizziness no chest pain no shortness of breath no cough no nausea or vomiting no abdominal pain no diarrhea and no urinary symptoms, she is still complaining of left knee pain at this time will check knee x-ray and consult orthopedic surgery On 07/04/2019 patient was seen and examined on the medical floor she is drowsy but responsive, answering a few questions at the time then closes her eyes, th ere is no fever or chills no headache or dizziness no chest pain no shortness of breath no cough no nausea or vomiting no abdominal pain no diarrhea and no urinary symptoms, patient mostly complaining of left lower extremity pain. On 07/05/2019 patient was seen and examined on the medical floor she is alert and responsive in no apparent distress there is no fever or chills no headache or dizziness no chest pain no shortness of breath no cough no nausea or vomiting no abdominal pain no diarrhea no burning with urination no frequency or urgency and no hematuria. White blood count is improving gradually, patient is still complaining of left lower extremity pain, otherwise no complaints at this time On 07/06/2019 patient was seen and examined on the medical floor she is more alert and responsive today she is complaining of feeling depressed she is complaining of pain mostly in her left lower extremity otherwise she denies any complaints there is no fever or chills no headache or dizziness no chest pain no shortness of breath no cough no nausea or vomiting no abdominal pain no diarrhea and no urinary symptoms. On 07/07/2019 patient was seen and examined on the medical floor she is alert and oriented 3 answering questions appropriately today she states she is feeling better, patient had a midline placed in her arm today, case discussed with infectious disease she would need 1 more week of the daptomycin were planning on discharge back to the group home tomorrow. On 07/08/2019 patient was seen and examined on the medical floor she is alert and oriented in no apparent distress she is still complaining of diarrhea, potassium today is up to 6.8 she is still complaining of pain in the left lower extremity otherwise no complaints at this time, due to all above we are giving Kayexalate today, rechecking potassium this afternoon, delayed transfer to group home until Wednesday. On 07/09/2019 patient was seen and examined on the medical floor she is alert and oriented 3 in no apparent distress there is no fever or chills no headache or dizziness no chest pain no shortness of breath no cough no nausea or vomiting no abdominal pain no diarrhea and no urinary symptoms patient is complaining of left knee pain and is complaining of generalized weakness serum level is down to 4.8 today Objective - Vital Signs Vital signs: Vital Signs Temp 98.5 F 07/09/19 04:40 Pulse 96 07/09/19 04:40 Resp 20 07/09/19 04:40 BP 156/79 07/09/19 04:40 Pulse Ox 97 07/09/19 04:40 Intake & Output 07/08/19 07/09/19 07/09/19 18:59 06:59 18:59 Intake Total 0 100 Output Total 650 1425 Balance -650 -1325 Intake: Intake, IV Titration 0 Amount Sodium Chloride 0.9% 250 0 ml @ 0 mls/hr IV .K-MED ONE Rx#:[id number] Oral 100 Output: Urine 650 1425 Straight 400 Other: Voiding Method Indwelling Catheter - Exam In general patient is somnolent responsive answering questions by yes or no and quickly goes back to closing her eyes HEENT with significant trauma and hematoma to the face Neck is supple no JVD no goiter no lymphadenopathy Chest exam reveals a few scattered rhonchi no wheezing Cardiac exam reveals regular heart sounds S1 and S2 with tachycardia no gallops no murmurs Abdomen is soft nontender no organomegaly with normal bowel sounds Extremity exam reveals right above-knee amputation and left was 2+ edema, slightly improving Neurological examination mental status as above otherwise no focal neurological deficit at this time - Labs CBC & Chem 7: 07/09/19 06:53 07/09/19 06:53 Labs: Abnormal Lab Results - Last 24 Hours (Table) 07/08/19 07/09/19 07/09/19 Range/Units 13:45 06:53 06:53 RBC 2.83 L (3.80-5.40) m/uL Hgb 8.4 L (11.4-16.0) gm/dL Hct 26.5 L (34.0-46.0) % RDW 16.6 H (11.5-15.5) % Plt Count 691 H (150-450) k/uL Sodium 136 L (137-145) mmol/L Potassium 5.9 H (3.5-5.1) mmol/L Carbon Dioxide 31 H (22-30) mmol/L Creatinine 0.49 L (0.52-1.04) mg/dL AST 40 H (14-36) U/L ALT 43 H (4-34) U/L Alkaline Phosphatase 138 H (38-126) U/L Total Protein 6.2 L (6.3-8.2) g/dL Albumin 2.6 L (3.5-5.0) g/dL Assessment and Plan Plan: 1. Recent fall with head trauma 5 days ago with computed tomography scan revealing minimal subarachnoid hemorrhage and possible intra-parenchymal hemorrhage in the right periventricular white matter. At this time aspirin and Coumadin are held, neurology consultation was requested. I have discussed this case in details with her son who is the power of attorney general at this time. Decision at this time is not to transfer patient to a tertiary care center due to the fact that trauma happened 5 days ago and due to current conditions with Covid 19 epidemic. Son is in agreement not to transfer patient. 2. Urinary tract infection with sepsis, urine culture and blood cultures requested, patient started on IV Rocephin, infectious disease consultation requested 3. Mental status changes, due to metabolic encephalopathy related to sepsis, and possibly to intracranial bleeding, will monitor closely 4. Underlying history of hypertention, home blood pressure medication are resumed will monitor 5. Tachycardia, will give fluid bolus 250 mL and reassess medications including metoprolol were resumed 6. Febrile illness was temperature of 102, could be related to urinary tract infection however will check Covid 19 Will consult infectious disease 7. 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 8. Previous history of DVT and PE maintained on Coumadin at this time Coumadin is on hold Will resume when advised by neurology 9. Underlying history of anemia. With worsening anemia during this admission requiring multiple red blood cell transfusion, most likely due to acute bleeding, gastroenterology and hematology are following. 10. Swallowing difficulty, speech therapy following, medication with large pills or medications that are not supposed to be crushed need to be changed due to patient unable to swallow, we change imdur to nitroglycerin patch, discontinue oral iron and give 1 dose of IV iron today, change metoprolol to succinate to metoprolol tartrate twice daily. 11. Protein calorie malnutrition continue with protein supplements orally, we will give 1 dose of IV albumin today followed by IV Lasix due to generalized anasarca 12. Left knee pain with large bruising since admission patient had a fall at the group home, patient is still complaining of pain at this time, will obtain x-ray Will consult orthopedic surgery. 13. Hyperkalemia correcting with Kayexalate At this time patient is admitted to telemetry floor, she is started on IV fluid and IV antibiotics Neurology consultation and infectious disease consultation are requested Coumadin and aspirin are on hold, will recheck INR in a.m. Will check CBC and CMP in a.m. At this time patient remains a full code which was discussed with her son twice during this admission. Prognosis is guarded
[2019-07-09] MEDS: SODIUM CHLORIDE 0.9% 1,000 ML IV SCH (17:36)
[2019-07-09] MEDS: DAPTOmycin 500 MG in SODIUM CHLORIDE 0.9% 50 ML IVPB SCH (17:39)
[2019-07-09] MEDS: MULTIVITAMINS, THERA 1 EACH TAB PO SCH (21:51)
[2019-07-09] MEDS: FOLIC ACID 1 MG TAB PO SCH (21:51)
[2019-07-09] MEDS: ALLOPURINOL 300 MG TAB PO SCH (21:51)
--- NOTE | 2019-07-09 22:55 | PN ---
PROGRESS NOTE DATE OF SERVICE: 07/09/2019 REASON FOR FOLLOWUP: Right BKA stump wound and cellulitis. INTERVAL HISTORY: The patient is currently afebrile. She has been breathing comfortably. The patient denies having any chest pain or cough. No abdominal pain. Pain to the right hand. PHYSICAL EXAMINATION: On examination, her blood pressure is 171/90 with a pulse of 93, temperature 98.7. She is 97% on 3 L nasal cannula. General description is an elderly female lying in bed in no distress. Respiratory system: Unlabored breathing, clear to auscultation anteriorly. Heart S1, S2. Regular rate and rhythm. Abdomen soft, no tenderness. Right BKA stump wound is currently dressed. No drainage on the dressing. LABS: Hemoglobin 8.4, white count 28.6, BUN of 10, creatinine 0.49. DIAGNOSTIC IMPRESSION AND PLAN: 1. Patient admitted to the hospital with a fever which is likely multifactorial. Did have urinary tract infection and pneumonia has been adequately treated. 2. Possible right below knee amputation stump cellulitis. Currently covered with daptomycin, to continue for another 5-7 days to finish a course of therapy. Continue supportive care. MMODL / IJN: [id number] /
[2019-07-10] MEDS: ACETAMINOPHEN TAB 500 MG TAB PO PRN (01:41)
[2019-07-10] MEDS: PANTOPRAZOLE 40 MG TABLET PO SCH (05:05)
[2019-07-10 07:48] LABS: ANA Pattern Speckled
[2019-07-10 07:51] LABS: Anisocytosis Slight; Basophils % (A) 0 %; Eosinophils # (A) 0.3 k/uL (0-0.7); Eosinophils % (A) 4 %; HCT 27.4 % (34.0-46.0); HGB 8.4 gm/dL (11.4-16.0); Hypochromasia Moderate; Lymphocytes % (A) 14 %; MCH 29.2 pg (25.0-35.0); MCHC 30.7 g/dL (31.0-37.0); MCV 95.1 fL (80.0-100.0); Mean Platelet Volume 7.8; Monocytes # (A) 0.4 k/uL (0-1.0); Monocytes % (A) 6 %; Neutrophils # (A) 5.4 k/uL (1.3-7.7); Neutrophils % (A) 74 %; Platelet Count 590 k/uL (150-450); RBC 2.88 m/uL (3.80-5.40); RDW 16.4 % (11.5-15.5); WBC 7.2 k/uL (3.8-10.6)
[2019-07-10 08:05] LABS: ALT 33 U/L (4-34); AST 29 U/L (14-36); African American GFR (CKD) >90 (>60 ml/min/1.73 sqM); Albumin 2.5 g/dL (3.5-5.0); Alkaline Phosphatase 135 U/L (38-126); Anion Gap 5 mmol/L; Blood Urea Nitrogen 8 mg/dL (7-17); Calcium 8.9 mg/dL (8.4-10.2); Carbon Dioxide 31 mmol/L (22-30); Chloride 101 mmol/L (98-107); Glucose 86 mg/dL (74-99); Non-African American GFR(CKD) >90 (>60 ml/min/1.73 sqM); Potassium 4.1 mmol/L (3.5-5.1); Sodium 137 mmol/L (137-145); Total Bilirubin 0.7 mg/dL (0.2-1.3); Total Protein 6.4 g/dL (6.3-8.2)
[2019-07-10] MEDS: PARoxetine 10 MG TAB PO SCH (08:30)
[2019-07-10] MEDS: CALCIUM CARB-VIT D 500MG-200UN 1 EACH TAB PO SCH (08:30)
[2019-07-10] MEDS: NITROGLYCERIN 0.3MG/HR PATCH TRANSDERM SCH (08:30)
[2019-07-10] MEDS: CYANOCOBALAMIN 500 MCG TAB PO SCH (08:31)
[2019-07-10] MEDS: LISINOPRIL 20 MG TAB PO SCH (08:31)
[2019-07-10] MEDS: METOPROLOL TARTRATE 25 MG TAB PO SCH (08:31)
[2019-07-10] MEDS: MAGNESIUM OXIDE 400 MG TAB PO SCH (08:31)
[2019-07-10] MEDS: PYRIDOXINE 50 MG TAB PO SCH (08:31)
--- NOTE | 2019-07-10 11:52 | P.PN ---
Subjective Progress Note Date: 07/10/19 Principal diagnosis: coagulopathy with bleeding, hemorrhagic CVA and SQ bleeding post trauma In f/u today pt has no acute c/o, she is pending transferred to [facility]. Objective - Vital Signs Vital signs: Vital Signs Temp 97.8 F 07/10/19 04:45 Pulse 89 07/10/19 04:45 Resp 20 07/10/19 04:45 BP 130/72 07/10/19 05:06 Pulse Ox 97 07/10/19 04:45 Intake & Output 07/09/19 07/10/19 07/10/19 18:59 06:59 18:59 Intake Total 160 300 Output Total 900 Balance 160 -600 Intake: Intake, IV Titration 160 Amount Sodium Chloride 0.9% 1, 160 000 ml @ 20 mls/hr IV . Q24H JORGE Rx#:[id number] Oral 300 Output: Urine 900 Straight 300 Other: Voiding Method Indwelling Catheter - Constitutional General appearance: Present: morbidly obese, no acute distress - EENT EENT Comment(s): Right superior orbital hematoma, stable, healing, patient's raccoon eyes are healing as well Eyes: Present: anicteric sclerae ENT: Present: hearing grossly normal - Respiratory Details: Respirations even and unlabored - Cardiovascular Details: anasarca - Integumentary Integumentary: Present: pale - Musculoskeletal Musculoskeletal: Present: generalized weakness - Psychiatric Psychiatric: Present: A&O x's 3, appropriate affect, intact judgment & insight - Labs CBC & Chem 7: 07/10/19 06:44 07/10/19 06:44 Labs: Abnormal Lab Results - Last 24 Hours (Table) 07/10/19 07/10/19 Range/Units 06:44 06:44 RBC 2.88 L (3.80-5.40) m/uL Hgb 8.4 L (11.4-16.0) gm/dL Hct 27.4 L (34.0-46.0) % MCHC 30.7 L (31.0-37.0) g/dL RDW 16.4 H (11.5-15.5) % Plt Count 590 H (150-450) k/uL Carbon Dioxide 31 H (22-30) mmol/L Creatinine 0.50 L (0.52-1.04) mg/dL Alkaline Phosphatase 135 H (38-126) U/L Albumin 2.5 L (3.5-5.0) g/dL Assessment and Plan (1) Acute blood loss anemia Narrative/Plan: Hemoglobin stable. Based on iron studies drawn post transfusion, anticipate a degree of iron deficiency. Follow up about 4-6 weeks and recheck iron levels as well as CBC. Current Visit: Yes Status: Acute Priority: High Code(s): D62 - ACUTE POSTHEMORRHAGIC ANEMIA SNOMED Code(s): 715958613 (2) Iron deficiency anemia Narrative/Plan: Patient received a dose of IV iron plus she has received 4 units of blood. Iron studies to be rechecked 4-6 weeks and hemoglobin monitored at least weekly. Recommend endoscopy, non-urgently Current Visit: Yes Status: Acute Priority: High Code(s): D50.9 - IRON DEFICIENCY ANEMIA, UNSPECIFIED SNOMED Code(s): 53527805 (3) Coagulopathy Narrative/Plan: INR has been reversed. Patient states that she was on Coumadin for pulmonary embolism. IVC filter placed. Current Visit: Yes Status: Acute Priority: High Code(s): D68.9 - COAGULATION DEFECT, UNSPECIFIED SNOMED Code(s): 03718015 (4) Pulmonary embolism Narrative/Plan: From chart review, old documentation shows that in 2013 (1st EMR H&P)when patient was admitted she was on Coumadin at that time for history of DVT and PE so, she has certainly been on prolonged anticoagulation. Due to recent bleeding, hemorrhagic CVA and supratherapeutic INR, anticoagulation is currently on hold. It is unclear if the patient's previous blood clots were provoked, but I would suspect they were due to the admission diagnoses. Unfortunately, patient's health has not significantly improved since that time. She has multiple provoking factors that persist, including chronic inflammation, recurrent infections as well as mobility issues. Discussed with pt her high risk of continuing anticoagulation (falls, recent subarachnoid hemnorrhage, high INR variability). Vascular placed IVC filter 07/05/19. Current Visit: No Status: Chronic Priority: Medium Code(s): I26.99 - OTHER PULMONARY EMBOLISM WITHOUT ACUTE COR PULMONALE SNOMED Code(s): 11132279 (5) Leukocytosis Current Visit: Yes Status: Resolved Priority: Medium Code(s): D72.829 - ELEVATED WHITE BLOOD CELL COUNT, UNSPECIFIED SNOMED Code(s): 929128085 (6) Thrombocythemia Narrative/Plan: Reactive and iron deficiency. Iron def treatment has been initiated, platelets are decreasing over time. No acute intervention Current Visit: Yes Status: Resolved Priority: Medium Code(s): D47.3 - ESSENTIAL (HEMORRHAGIC) THROMBOCYTHEMIA SNOMED Code(s): 4981623
--- NOTE | 2019-07-10 13:23 | P.DS ---
Providers Date of admission: 06/22/19 13:29 Expected date of discharge: 07/10/19 Attending physician: Gage Gastelum Consults: 06/22/19 13:30 Consult Physician Routine Consulting Provider: Lisa Padilla Consult Reason/Comments: Intracranial hemorrhage Do you want consulting provider notified?: Already Contacted 06/22/19 16:41 Consult Physician Routine Consulting Provider: Paz Carr Consult Reason/Comments: fever Do you want consulting provider notified?: Yes 06/23/19 12:47 Consult Physician Routine Consulting Provider: Alec Esposito Consult Reason/Comments: fever, dyspnea Do you want consulting provider notified?: Yes 06/27/19 17:10 Consult Physician Routine Consulting Provider: Colby Rodriges Consult Reason/Comments: anemia Do you want consulting provider notified?: Yes 07/03/19 15:28 Consult Physician Routine Consulting Provider: Cade Garnica Consult Reason/Comments: left knee pain Do you want consulting provider notified?: Yes 07/05/19 09:35 Consult Physician Routine Consulting Provider: Esvin Fischer Consult Reason/Comments: IVC filter placement, not a candidate for anticoagulation Do you want consulting provider notified?: Yes Primary care physician: Gage Gastelum [facility] Course: Diagnoses on discharge: 1. Recent fall with head trauma 5 days ago with computed tomography scan revealing minimal subarachnoid hemorrhage and possible intra-parenchymal hemorrhage in the right periventricular white matter. At this time aspirin and Coumadin are held, neurology consultation was requested. I have discussed this case in details with her son who is the power of hot room attendant at this time. Decision at this time is not to transfer patient to a tertiary care center due to the fact that trauma happened 5 days ago and due to current conditions with Covid 19 epidemic. Son is in agreement not to transfer patient. 2. Urinary tract infection with sepsis, urine culture and blood cultures requested, patient started on IV Rocephin, infectious disease consultation requested 3. Mental status changes, due to metabolic encephalopathy related to sepsis, and possibly to intracranial bleeding, will monitor closely 4. Underlying history of hypertention, home blood pressure medication are resumed will monitor 5. Tachycardia, will give fluid bolus 250 mL and reassess medications including metoprolol were resumed 6. Febrile illness was temperature of 102, could be related to urinary tract infection however will check Covid 19 Will consult infectious disease 7. 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 8. 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 Coumadin discontinues during this admission, IVC filter placed by Dr Ace during this admission 9. Underlying history of anemia. With worsening anemia during this admission requiring multiple red blood cell transfusion, most likely due to acute bleeding, gastroenterology and hematology are following. 10. Swallowing difficulty, speech therapy following, medication with large pills or medications that are not supposed to be crushed need to be changed due to patient unable to swallow, we change imdur to nitroglycerin patch, discontinue oral iron and give 1 dose of IV iron today, change metoprolol to succinate to metoprolol tartrate twice daily. 11. Protein calorie malnutrition continue with protein supplements orally, we will give 1 dose of IV albumin today followed by IV Lasix due to generalized anasarca 12. Left knee pain with large bruising since admission patient had a fall at the retirement, patient is still complaining of pain at this time, will obtain x-ray Will consult orthopedic surgery. 13. Hyperkalemia correcting with Kayexalate Hospital course: Maria Teresa Celeste is a 73-year-old female resident of [facility] on [facility] who sustained a fall with head trauma on 06/18/2019 at that time she was sent to emergency room and had a computed tomography scan of the brain and the cervical spine without contrast, she had evidence of a large frontal scalp hematoma and right periorbital hematoma but no intracranial bleeding, she was sent back to [facility] on the [facility]. On 06/22/2019 patient was noticed to have worsening mental status was more somnolence and less responsiveness by the nursing staff she was sent back to emergency room repeat computed tomography scan of the brain revealed evidence of minimal subarachnoid hemorrhage and possible intraparenchymal hemorrhage in the right periventricular white matter. Possibility of transferring patient to a tertiary care center was discussed in details in the emergency room, however due to the fact that trauma happened several days ago, and due to the fact that there is an epidemic of Covid 19 infection which is making it very difficult to transfer patient to [facility], and due to patient age and comorbidities which makes intracranial intervention exceedingly difficult, decision was made not to proceed with transferring patient, her son, (and current power of hot room attendant since her earlier this month) who was in the emergency room was in agreement of this decision. Patient was admitted to telemetry floor and neurology consultation was requested. Patient has a known history of DVT and PE, she was maintained on aspirin and Coumadin, these medications are now on hold. Patient also had evidence of urinary tract infection with sepsis as evidenced by temperature of 102.1 and leukocytosis white blood count was 14.0 and tachycardia was heart rate of 123 Patient will be given a fluid bolus lactic acid level was ordered but not resulted yet, she was given a dose of IV Rocephin in the emergency room Infectious disease consultation was requested, Covid 19 testing will be done due to elevated temperature On 06/23/2019 patient was seen and examined on the medical floor she is somnolent and responsive she answers questions briefly but goes back to sleep she is denying any pain or discomfort at this time she is denying shortness of breath or cough she is still having spikes of temperature to 102.4 neurology input reviewed will restart Coumadin tomorrow. On 06/24/2019 patient was seen and examined on the medical floor she is more alert and responsive today, white blood count is up to 15.4 hemoglobin 6.0 at this time Coumadin will be held again she will receive 1 unit of red blood cell transfusion then recheck CBC. Covid 19 testing is still pending patient is still having spikes of temperature or fever this morning was 100.7 she still has tachycardia and low oxygen saturation of 89% on room air On 06/25/2019 patient was seen and examined on the medical floor she is somnolent opens eyes and responsive to stimuli and answers few questions with yes or no" since her eyes again she is still having some fever liver enzymes are more elevated today, white blood count is improving, she is still maintained on IV antibiotic for urinary tract infection albumin level is lower at 2.7 patient has poor oral intake On 06/26/2019 patient was seen and examined on the medical floor she is more alert and responsive today she is answering questions appropriately there is no fever or chills no headache or dizziness no chest pain or shortness of breath no cough no nausea or vomiting no abdominal pain no diarrhea and no urinary symptoms. On 06/27/2019 patient was seen and examined on the medical floor she is alert responsive to stimuli and answers few questions and closes her eyes there is no fever or chills no headache or dizziness no chest pain no shortness of breath no cough, no nausea or vomiting no abdominal pain no diarrhea no burning was urination no frequency or urgency and no hematuria, white blood count is increasing up to 32.9 patient is maintained on Zosyn and vancomycin, infectious disease following On 06/28/2019 A shouldn't was seen and examined on the medical floor she is alert responsive in no apparent distress there is no fever or chills no headache or dizziness no chest pain no shortness of breath no cough no nausea or vomiting no abdominal pain no diarrhea and no urinary symptoms she is complaining of left lower extremity pain white blood count is still significantly elevated at 31 INR is elevated at 5.7 patient is not on any Coumadin at this time a dose of vitamin K orally will be given On 06/29/2019 patient was seen and examined on the medical floor she is more alert today however she is confused there is no fever or chills no headache or dizziness no chest pain no shortness of breath no cough no nausea or vomiting no abdominal pain no diarrhea and no urinary symptoms, hemoglobin today is down to 6.21 unit of red blood cell transfusion was ordered INR is 2.6 patient is not on any Coumadin she received vitamin K yesterday On 06/30/2019 patient is more alert today and responding to questions appropriately there is no fever or chills no headache or dizziness no chest pain no shortness of breath no cough no nausea or vomiting no abdominal pain no diarrhea and no urinary symptoms patient is complaining of left lower extremity pain she has a large bruise on the left knee area, INR today is 1.5 hemoglobin 8.1 On 07/01/2019 patient was seen and examined on the medical floor she is alert and responding to few questions then closes her eyes she is complaining of pain in the left knee area otherwise no complaints she has a large hematoma on the knee, there is no fever or chills no chest pain or shortness of breath no cough no nausea or vomiting no abdominal pain no diarrhea and no urinary symptoms. On 07/02/2019 patient was seen and examined on the medical floor she is alert slightly confused in no apparent distress there is no fever or chills no headache or dizziness no chest pain no shortness of breath no cough no nausea or vomiting no abdominal pain no diarrhea and no urinary symptoms On 07/03/2019 patient was seen and examined on the medical floor she is doing slightly better she is alert and responsive in no apparent distress there is no fever or chills no headache or dizziness no chest pain no shortness of breath no cough no nausea or vomiting no abdominal pain no diarrhea and no urinary symptoms, she is still complaining of left knee pain at this time will check knee x-ray and consult orthopedic surgery On 07/04/2019 patient was seen and examined on the medical floor she is drowsy but responsive, answering a few questions at the time then closes her eyes, there is no fever or chills no headache or dizziness no chest pain no shortness of breath no cough no nausea or vomiting no abdominal pain no diarrhea and no urinary symptoms, patient mostly complaining of left lower extremity pain. On 07/05/2019 patient was seen and examined on the medical floor she is alert and responsive in no apparent distress there is no fever or chills no headache or dizziness no chest pain no shortness of breath no cough no nausea or vomiting no abdominal pain no diarrhea no burning with urination no frequency or urgency and no hematuria. White blood count is improving gradually, patient is still complaining of left lower extremity pain, otherwise no complaints at this time On 07/06/2019 patient was seen and examined on the medical floor she is more alert and responsive today she is complaining of feeling depressed she is complaining of pain mostly in her left lower extremity otherwise she denies any complaints there is no fever or chills no headache or dizziness no chest pain no shortness of breath no cough no nausea or vomiting no abdominal pain no diarrhea and no urinary symptoms. On 07/07/2019 patient was seen and examined on the medical floor she is alert and oriented 3 answering questions appropriately today she states she is feeling better, patient had a midline placed in her arm today, case discussed with infectious disease she would need 1 more week of the daptomycin were planning on discharge back to the retirement tomorrow. On 07/08/2019 patient was seen and examined on the medical floor she is alert and oriented in no apparent distress she is still complaining of diarrhea, potassium today is up to 6.8 she is still complaining of pain in the left lower extremity otherwise no complaints at this time, due to all above we are giving Kayexalate today, rechecking potassium this afternoon, delayed transfer to retirement until Wednesday. On 07/09/2019 patient was seen and examined on the medical floor she is alert and oriented 3 in no apparent distress there is no fever or chills no headache or dizziness no chest pain no shortness of breath no cough no nausea or vomiting no abdominal pain no diarrhea and no urinary symptoms patient is complaining of left knee pain and is complaining of generalized weakness serum level is down to 4.8 today On 07/10/2019 patient was seen and examined on the medical floor she is alert and oriented 3 in no apparent distress she is feeling better there is no fever or chills no headache or dizziness no chest pain no shortness of breath no cough no nausea or vomiting no abdominal pain no diarrhea and no urinary symptoms. Patient can be discharged today to the retirement, she will continue on IV daptomycin, length of treatment as advised by Dr. Carr. Patient Condition at Discharge: Stable Plan - Discharge Summary Discharge Rx Participant: No New Discharge Prescriptions: New DAPTOmycin [Cubicin] 500 mg IV DAILY #7 bag Acetaminophen Tab [Tylenol] 500 mg PO Q6HR PRN tab PRN Reason: Fever And/ Or Pain Pyridoxine [Vitamin B-6] 50 mg PO DAILY tab Continue Allopurinol [Zyloprim] 300 mg PO HS@2100 Multivitamins, Thera [Multivitamin (formulary)] 1 tab PO HS@2100 Pravastatin Sodium [Pravachol] 20 mg PO HS@2100 Isosorbide Mononitrate ER [Imdur] 30 mg PO DAILY@0900 PARoxetine HCL [Paxil] 30 mg PO BID@0900,1700 LORazepam [Ativan] 0.5 mg PO BID@0900,1700 Calcium Carbonate/Vitamin D3 [Calcium 600-Vit D3 400 Tablet] 1 tab PO BID@0900,2100 Ondansetron HCl [Zofran] 4 mg PO Q6H PRN PRN Reason: Nausea And Vomiting Artificial Tears-Hypromellose [Artificial Tear Drops] 1 drop BOTH EYES Q1H PRN PRN Reason: Dry Eye(S) Cyanocobalamin [Vitamin B-12] 500 mcg PO DAILY@0900 Folic Acid 1 mg PO HS@2100 Lisinopril [Zestril] 20 mg PO BID@0900,1700 Loperamide [Imodium] 2 mg PO Q6H PRN PRN Reason: Diarrhea Magnesium Oxide 400 mg PO BID@0900,2100 Menthol-Zinc Oxide Oint [Calmoseptine Oint] 1 applic TOPICAL Q6H PRN PRN Reason: skin protection Metoprolol Succinate (ER) [Toprol XL] 50 mg PO DAILY@0900 Pantoprazole Sodium [Protonix] 40 mg PO DAILY@0600 Ferrous Sulfate [Feosol] 325 mg PO DAILY@0900 Diazepam [Valium] 5 mg PO Q6H PRN PRN Reason: Anxiety Discontinued Acetaminophen Tab [Tylenol] 650 mg PO Q6H PRN PRN Reason: PAIN/FEVER Aspirin 325 mg PO DAILY@0900 Potassium Chloride ER [K-Dur 20] 20 meq PO DAILY@0900 Warfarin [Coumadin] 2 mg PO HS@1700 Discharge Medication List Allopurinol [Zyloprim] 300 mg PO HS@209908/21/14 [History] Multivitamins, Thera [Multivitamin (formulary)] 1 tab PO HS@209911/17/15 [History] Isosorbide Mononitrate ER [Imdur] 30 mg PO DAILY@0900 02/02/18 [History] Pravastatin Sodium [Pravachol] 20 mg PO HS@209902/02/18 [History] PARoxetine HCL [Paxil] 30 mg PO BID@0900,1700 03/27/18 [History] Calcium Carbonate/Vitamin D3 [Calcium 600-Vit D3 400 Tablet] 1 tab PO BID@0900,2100 03/18/19 [History] LORazepam [Ativan] 0.5 mg PO BID@0900,1700 03/18/19 [History] Ondansetron HCl [Zofran] 4 mg PO Q6H PRN 03/18/19 [History] Artificial Tears-Hypromellose [Artificial Tear Drops] 1 drop BOTH EYES Q1H PRN 06/18/19 [History] Cyanocobalamin [Vitamin B-12] 500 mcg PO DAILY@0900 06/18/19 [History] Ferrous Sulfate [Feosol] 325 mg PO DAILY@0900 06/18/19 [History] Folic Acid 1 mg PO HS@209906/18/19 [History] Lisinopril [Zestril] 20 mg PO BID@0900,1700 06/18/19 [History] Loperamide [Imodium] 2 mg PO Q6H PRN 06/18/19 [History] Magnesium Oxide 400 mg PO BID@0900,2100 06/18/19 [History] Menthol-Zinc Oxide Oint [Calmoseptine Oint] 1 applic TOPICAL Q6H PRN 06/18/19 [History] Metoprolol Succinate (ER) [Toprol XL] 50 mg PO DAILY@0900 06/18/19 [History] Pantoprazole Sodium [Protonix] 40 mg PO DAILY@0600 06/18/19 [History] Diazepam [Valium] 5 mg PO Q6H PRN 06/22/19 [History] DAPTOmycin [Cubicin] 500 mg IV DAILY #7 bag 07/07/19 [Rx] Acetaminophen Tab [Tylenol] 500 mg PO Q6HR PRN tab 07/10/19 [Rx] Pyridoxine [Vitamin B-6] 50 mg PO DAILY tab 07/10/19 [Rx] Follow up Appointment(s)/Referral(s): Colby Rodriges MD [STAFF PHYSICIAN] - 4 Weeks [facility], [NON-STAFF] - As Needed (Return upon physician D/C. ) Gage Gastelum MD [Primary Care Provider] - 1-2 days
[2019-07-10] MEDS: SODIUM CHLORIDE 0.9% 1,000 ML IV SCH (13:55)
[2019-07-10 14:30] VITALS: BP 153/81; PULSE 86; RESP 18; TEMP 98.5
--- NOTE | 2019-07-10 15:58 | PN ---
PROGRESS NOTE DATE OF SERVICE: 07/10/2019 REASON FOR FOLLOWUP: Right BKA stump wound and cellulitis. INTERVAL HISTORY: The patient is currently afebrile. The patient is breathing comfortably. Denies having any chest pain or shortness of breath or cough. No abdominal pain. No diarrhea. PHYSICAL EXAMINATION: Blood pressure 130/72 with a pulse of 89, temperature 97.8. She is 97% on room air. General description is an elderly female lying in bed in no distress. RESPIRATORY SYSTEM: Unlabored breathing. Clear to auscultation anteriorly. HEART: S1, S2. Regular rate and rhythm. ABDOMEN: Soft. No tenderness. Right BKA stump is currently dressed up. LABS: Hemoglobin 8.4, white count 7.2, BUN of 8, creatinine 0.50. DIAGNOSTIC IMPRESSION AND PLAN: 1. Patient admitted to hospital initially with Escherichia coli urinary tract infection and pneumonia, adequately treated. 2. Patient with possible right lower extremity wound with secondary cellulitis, clinically responding to daptomycin; to continue to finish a 2-week course of therapy. Local care to continue with Aquacel Silver dressing. MMODL / IJN: [id number] /
--- NOTE | 2019-07-11 15:16 | CDI ---
Documentation Clarification Form Date: 07/11/19 From: Cheyenne Taveras CCS Phone: If you have a question about this query, please contact Itzel Gill, House Player at [phone] between 8am and 5pm. Admit Date: 06/22/19 Discharge Date:07/10/19 Patient Name: Maria Teresa Celeste Visit Number: [id number] ATTENTION: The Clinical Documentation Specialists (CDI) and [facility] Coding Staff appreciate your assistance in clarifying documentation. Please respond to the clarification below the line at the bottom and electronically sign. The CDI & [facility] Coding staff will review the response and follow-up if needed. Please note: Queries are made part of the Legal Health Record. If you have any questions, please contact the author of this message via ITS. Dear Dr. Gastelum, [CKD is defined as GFR<=60 for >= 3 months. Before placing query, please validate historical GFR labs] CKD is documented in the 06/28 Consult, Dr. Bush . History/Risk Factors: HTN, Obesity Clinical Indicators: BUN: 28, 27, 33 Creatinine: 0.89, 0.92, 1.06 Est GFR: 74, 72 Consult: Eleazar- Patient History Chronic Kidney Disease In order to capture the severity of condition, please clarify the stage of the CKD, if known: CKD Stage 1 (GFR > 90) CKD Stage 2 (GFR 60-89) CKD Stage 3 (GFR 30-59) CKD Stage 4 (GFR 15-29) CKD Stage 5 (GFR <15) ESRD Other, please specify Unable to determine No CKD If Dr Bush has a different opinion you can ask her MTDD
--- NOTE | 2019-07-11 15:32 | CDI ---
Documentation Clarification Form Date: 07/11/19 From: Cheyenne Tavreas CCS Phone: If you have a question about this query, please contact Itzel iGll, Director Of Events at [phone] between 8am and 5pm. Admit Date: 06/22/19 Discharge Date:07/10/19 Patient Name: Maria Teresa Celeste Visit Number: [id number] ATTENTION: The Clinical Documentation Specialists (CDI) and [facility] Coding Staff appreciate your assistance in clarifying documentation. Please respond to the clarification below the line at the bottom and electronically sign. The CDI & [facility] Coding staff will review the response and follow-up if needed. Please note: Queries are made part of the Legal Health Record. If you have any questions, please contact the author of this message via ITS. Dear Dr. Gastelum, Your patient has the diagnosis of UTI with sepsis and indwelling urinary catheter documented in H&P, Consult, PNs, DS. A relationship between diagnoses cannot be assumed unless documented as such by the attending physician. In order to capture the severity of condition; please document the relationship, if any, between these diagnoses. History/Risk Factors: HTN, PNA, Obesity, Anemia, Dementia, Malnutrition Clinical Indicators: Escherichia coli UTI w/ sepsis, Catheterized urine Treatment: Rocephin 1,000 mg IVP ONCE, Rocephin 1 gm IVPB Q 24 HR, Zosyn 3.375 gm IVPB Please clarify and document your clinical opinion in the progress notes and discharge summary if any relationship (due to, caused by, secondary to) exists between these two diagnoses. Please include clinical findings supporting your diagnosis. UTI due to indwelling catheter UTI unrelated to indwelling catheter Other explanation of clinical findings (please specify) Unable to determine (no explanation for clinical findings) UTI due to indwelling catheter MTDD
== END 2019-07-10 15:46 | DRG 673 ==
LOC: EEVIPCON 10:31 → EC 10:31 → 3SCARD 13:29 → 6NMEDSUR 06-28 20:54
PROVIDERS: ADMIT Internal Medicine; ATTEND Internal Medicine
PROC: 30233N1 Transfusion of Nonautologous Red Blood Cells into Peripheral Vein, Percutaneous Approach (ICD-10-PCS; 2019-06-24)
PROC: 05HD33Z Insertion of Infusion Device into Right Cephalic Vein, Percutaneous Approach (ICD-10-PCS; 2019-06-27 07:30)
PROC: 06H03DZ Insertion of Intraluminal Device into Inferior Vena Cava, Percutaneous Approach (ICD-10-PCS; principal; 2019-07-05 10:45)
DX: T83.511A Infection and inflammatory reaction due to indwelling urethral catheter, initial encounter (principal); A41.51 Sepsis due to Escherichia coli [E. coli]; S06.6X0A Traumatic subarachnoid hemorrhage without loss of consciousness, initial encounter; G93.41 Metabolic encephalopathy; J69.0 Pneumonitis due to inhalation of food and vomit; J96.01 Acute respiratory failure with hypoxia; M86.651 Other chronic osteomyelitis, right thigh; Z68.41 Body mass index [BMI] 40.0-44.9, adult; J98.11 Atelectasis; L97.812 Non-pressure chronic ulcer of other part of right lower leg with fat layer exposed; D62 Acute posthemorrhagic anemia; D68.9 Coagulation defect, unspecified; L03.115 Cellulitis of right lower limb; T87.43 Infection of amputation stump, right lower extremity; E44.0 Moderate protein-calorie malnutrition; N39.0 Urinary tract infection, site not specified; D63.8 Anemia in other chronic diseases classified elsewhere; F03.90 Unspecified dementia, unspecified severity, without behavioral disturbance, psychotic disturbance, mood disturbance, and anxiety; R40.2352 Coma scale, best motor response, localizes pain, at arrival to emergency department; R40.2142 Coma scale, eyes open, spontaneous, at arrival to emergency department; R40.2242 Coma scale, best verbal response, confused conversation, at arrival to emergency department; Z20.828 Contact with and (suspected) exposure to other viral communicable diseases; K21.9 Gastro-esophageal reflux disease without esophagitis; M19.90 Unspecified osteoarthritis, unspecified site; M51.36 Other intervertebral disc degeneration, lumbar region; H54.8 Legal blindness, as defined in USA; H35.30 Unspecified macular degeneration; R29.6 Repeated falls; M10.9 Gout, unspecified; M81.0 Age-related osteoporosis without current pathological fracture; F41.9 Anxiety disorder, unspecified; F32.9 Major depressive disorder, single episode, unspecified; E66.9 Obesity, unspecified; K44.9 Diaphragmatic hernia without obstruction or gangrene; G43.909 Migraine, unspecified, not intractable, without status migrainosus; E53.1 Pyridoxine deficiency; I11.9 Hypertensive heart disease without heart failure; S80.02XA Contusion of left knee, initial encounter; S00.11XA Contusion of right eyelid and periocular area, initial encounter; S00.03XA Contusion of scalp, initial encounter; R32 Unspecified urinary incontinence; D47.3 Essential (hemorrhagic) thrombocythemia; R74.8 Abnormal levels of other serum enzymes; E87.5 Hyperkalemia; R13.10 Dysphagia, unspecified; E78.5 Hyperlipidemia, unspecified; W05.0XXA Fall from non-moving wheelchair, initial encounter; Z71.3 Dietary counseling and surveillance; Z79.899 Other long term (current) drug therapy; Z79.82 Long term (current) use of aspirin; Z79.01 Long term (current) use of anticoagulants; Z87.440 Personal history of urinary (tract) infections; Z86.718 Personal history of other venous thrombosis and embolism; Z86.711 Personal history of pulmonary embolism; Z87.19 Personal history of other diseases of the digestive system; Z89.611 Acquired absence of right leg above knee; Z90.710 Acquired absence of both cervix and uterus; Z98.890 Other specified postprocedural states; Z96.7 Presence of other bone and tendon implants; Z96.651 Presence of right artificial knee joint; Z98.42 Cataract extraction status, left eye; Z98.41 Cataract extraction status, right eye; Z99.3 Dependence on wheelchair; Z86.19 Personal history of other infectious and parasitic diseases; Z86.69 Personal history of other diseases of the nervous system and sense organs; Z87.891 Personal history of nicotine dependence; Z88.6 Allergy status to analgesic agent; Z91.011 Allergy to milk products; Z88.5 Allergy status to narcotic agent; Z91.018 Allergy to other foods; Z82.49 Family history of ischemic heart disease and other diseases of the circulatory system; Z80.8 Family history of malignant neoplasm of other organs or systems; Z83.438 Family history of other disorder of lipoprotein metabolism and other lipidemia; Z82.3 Family history of stroke
CPT/HCPCS: 36410; 36415; 36600; 37191; 70450; 71045; 71046; 74177; 76705; 76937; 80053; 80074; 80202; 80306; 81001; 82103; 82105; 82140; 82390; 82565; 82607; 82728; 82746; 82784; 82805; 83010; 83516; 83540; 83550; 83605; 83615; 83883; 84132; 84145; 84165; 84443; 85025; 85027; 85045; 85379; 85610; 85730; 86038; 86039; 86140; 86334; 86376; 86431; 86850; 86870; 86880; 86900; 86901; 86902; 86920; 87040; 87077; 87086; 87186; 87324; 87502; 93005; 96361; 96374; 99291

== ENCOUNTER → 2020-10-08 | Outpatient (CLI) | payer MEDICARE, OTHER ==
--- NOTE | 2020-10-10 09:16 | MM ---
Reason for exam: screening (asymptomatic). Last mammogram was performed 2 years ago. History: Patient is postmenopausal. Cancelled Right Mammotome of the right breast, January 26, 2011. Took estrogen for 10 years beginning at age 43. Took progesterone for 10 years beginning at age 43. Physical Findings: A clinical breast exam by your physician is recommended on an annual basis and results should be correlated with mammographic findings. MG 3D Screening Mammo W/Cad Bilateral CC and MLO view(s) were taken. Prior study comparison: September 28, 2018, bilateral MG 3d screening mammo w/cad. February 24, 2017, bilateral MG 3d screening mammo w/cad. The breast tissue is heterogeneously dense. This may lower the sensitivity of mammography. ASSESSMENT: Negative, BI-RAD 1 RECOMMENDATION: Routine screening mammogram of both breasts in 1 year.
== END | disposition home or self-care (01) ==
LOC: RADMAMWWP 14:04
PROVIDERS: ATTEND Internal Medicine
DX: Z12.31 Encounter for screening mammogram for malignant neoplasm of breast (principal)
CPT/HCPCS: 77063; 77067

== ENCOUNTER 2021-07-10 19:35 | Inpatient (IN) | payer MEDICARE, OTHER ==
[2021-07-10] MEDS ORDERED: IBUPROFEN IV 600 MG in SODIUM CHLORIDE 0.9% 250 ML IV STA (19:43)
[2021-07-10] MEDS ORDERED: ACETAMINOPHEN TAB 500 MG TAB PO STA (19:43)
[2021-07-10] MEDS: SODIUM CHLORIDE 0.9% 500 ML 500 ML IV SCH ×2 (19:45→20:45)
--- NOTE | 2021-07-10 19:46 | ED ---
General Adult HPI - General Stated complaint: Fever Time Seen by Provider: 07/10/21 19:35 Source: patient, RN notes reviewed, old records reviewed - History of Present Illness Initial comments: This is a 75-year-old female who is a and amputee of the right lower leg. Patient resides in a long term. Patient started to feel terrible today like she didn't want to get out of bed. Patient states she felt warm and they sent her in because she wasn't feeling well. EMS brought her into the temperature she was 103 in the ambulance. Patient denies cough patient denies any difficulty breathing or shortness of breath per patient denies any chest pain. Patient denies abdominal pain patient denies nausea vomiting diarrhea. Patient states she does have some dysuria on occasion states she's had multiple urinary tract infections. Patient denies headache patient denies any lightheadedness or dizziness. Patient denies any numbness or weakness. Patient denies any lesions or wounds or areas of erythema. - Related Data Home Medications Medication Instructions Recorded Confirmed allopurinoL [Zyloprim] 300 mg PO HS@209908/21/14 07/10/21 Multivitamins, Thera [Multivitamin 1 tab PO HS@209911/17/15 07/10/21 (formulary)] Isosorbide Mononitrate ER [Imdur] 30 mg PO DAILY@0900 02/02/18 07/10/21 Pravastatin Sodium [Pravachol] 20 mg PO HS@2100 02/02/18 07/10/21 PARoxetine HCL [Paxil] 30 mg PO BID@0900,1700 03/27/18 07/10/21 Calcium Carbonate/Vitamin D3 1 tab PO BID@0900,2100 03/18/19 07/10/21 [Calcium 600-Vit D3 10 mcg (400 Iu)] LORazepam [Ativan] 0.5 mg PO HS@2100 03/18/19 07/10/21 ondansetron HCL [Zofran] 4 mg PO Q6H PRN 03/18/19 07/10/21 Artificial Tears-Hypromellose 1 drop BOTH EYES Q1H PRN 06/18/19 07/10/21 [Artificial Tear Drops] Cyanocobalamin [Vitamin B-12] 500 mcg PO DAILY@0900 06/18/19 07/10/21 Ferrous Sulfate [Feosol] 325 mg PO DAILY@0900 06/18/19 07/10/21 Folic Acid 1 mg PO HS@209906/18/19 07/10/21 Loperamide [Imodium] 2 mg PO Q6H PRN 06/18/19 07/10/21 Magnesium Oxide 400 mg PO BID@0900,2100 06/18/19 07/10/21 Metoprolol Succinate (ER) [Toprol 50 mg PO DAILY@0900 06/18/19 07/10/21 XL] Pantoprazole Sodium [Protonix] 40 mg PO DAILY@0600 06/18/19 07/10/21 Acetaminophen Tab [Tylenol] 500 mg PO Q6HR PRN 07/10/21 07/10/21 Acetaminophen Tab [Tylenol] 650 mg PO Q4H PRN 07/10/21 07/10/21 Ammonium Lactate Lotion 1 applic TOPICAL HS 07/10/21 07/10/21 [Lac-Hydrin 12% Lotion] Calcium Carbonate [Tums] 1,000 mg PO Q6H PRN 07/10/21 07/10/21 Cetirizine HCl 10 mg PO DAILY@0900 07/10/21 07/10/21 Denosumab [Prolia] 60 mg SQ Q180D 07/10/21 07/10/21 Depo-Medrol Suspension 40mg/Ml 40 mg IM Q24HR PRN 07/10/21 07/10/21 Fenofibrate Nanocrystallized 145 mg PO DAILY@1400 07/10/21 07/10/21 [Tricor] Fluticasone Nasal [place] [Flonase 1 spray EA NOSTRIL BID@0900,209907/10/21 07/10/21 Nasal [place]] Furosemide [Lasix] 20 mg PO Q48H 07/10/21 07/10/21 Hydrocortisone Cream 1 applic TOPICAL DAILY PRN 07/10/21 07/10/21 [Hydrocortisone 2.5% Cream] Ketoconazole 2% Shampoo [Nizoral] 1 applic TOPICAL MOTH 07/10/21 07/10/21 Lidocaine Hcl Solution 1% 1 applic IM Q24H PRN 07/10/21 07/10/21 Losartan [Cozaar] 25 mg PO HS@209907/10/21 07/10/21 Menthol [Biofreeze] 1 applic TOPICAL Q6H PRN 07/10/21 07/10/21 Pyridoxine [Vitamin B-6] 50 mg PO DAILY@0900 07/10/21 07/10/21 Vit C/E/Zn/Coppr/Lutein/Zeaxan 2 cap PO DAILY@0900 07/10/21 07/10/21 [Preservision Areds 2 Softgel] Zguard 1 applic TOPICAL BID 07/10/21 07/10/21 amLODIPine [Norvasc] 5 mg PO DAILY@0900 07/10/21 07/10/21 diphenhydrAMINE HCL [Benadryl] 25 mg PO BID PRN 07/10/21 07/10/21 guaiFENesin [guaiFENesin Oral 200 mg PO Q4H PRN 07/10/21 07/10/21 Solution] hydrALAZINE HCL 25 mg PO TID PRN 07/10/21 07/10/21 hydrALAZINE HCL 25 mg PO TID@0600,1400,2200 07/10/21 07/10/21 Allergies Allergy/AdvReac Type Severity Reaction Status Date / Time adhesive Allergy Rash/Hives Verified 07/10/21 22:22 carbamazepine [From Tegretol] Allergy Rash/Hives Verified 07/10/21 22:22 carisoprodol [From Soma] Allergy lowers b/p Verified 07/10/21 22:22 quickly & passes out corn Allergy Diarrhea Verified 07/10/21 22:22 doxycycline calcium Allergy Rash/Hives Verified 07/10/21 22:22 [From Vibramycin] doxycycline hyclate Allergy Rash/Hives,vomited Verified 07/10/21 22:22 [From Vibramycin] blood doxycycline monohydrate Allergy Rash/Hives,vomited Verified 07/10/21 22:22 [From Vibramycin] blood erythromycin base Allergy Rash/Hives,vomited Verified 07/10/21 22:22 [From E-Mycin] blood hydrocodone bitartrate Allergy abdominal Verified 07/10/21 22:22 [From Vicodin] pain, diarrhea NSAIDS (Non-Steroidal Allergy Swelling Verified 07/10/21 22:22 Anti-Inflamma piroxicam [From Feldene] Allergy Swelling Verified 07/10/21 22:22 ciprofloxacin [From Cipro] AdvReac Nausea & Verified 07/10/21 22:22 Vomiting wheat AdvReac Diarrhea Verified 07/10/21 22:22 Review of Systems ROS Statement: Those systems with pertinent positive or pertinent negative responses have been documented in the HPI. ROS Other: All systems not noted in ROS Statement are negative. 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 History of Any Multi-Drug Resistant Organisms: VRE Date of last positivie culture/infection: August 2013 MDRO Source:: Right knee Past Surgical History: Hysterectomy, Joint Replacement, Orthopedic Surgery, Tubal Ligation Additional Past Surgical History / Comment(s): Sternocleidomastoidectomy (right), right shoulder rotator cuff, rectocele/cystocele, right foot - Varma's neuroma/hammer toe, left outer forearm arthroscopy and shortening left ulna - plates and screws inserted, right wrist bundle of nerves , right knee arthroscopy/realignment of tendon/tibia/kneecap, R femur rods, R tibia with screws, 07-20-13 right knee replacement/removal and antibiotic spacer placed, 08-10-13 large hematoma removed, BL vitrectomies, BL cataract surgery, right right femur benign tumor removed, left foot bone spur, EGD, colonoscopies,. Right AKA done on Feb 13 per Pt of this year. Past Anesthesia/Blood Transfusion Reactions: Postoperative Nausea & Vomiting (PONV) Additional Past Anesthesia/Blood Transfusion Reaction / Comment(s): no complications with prior blood transfusion Additional Psychological History / Comment(s): Pt at [facility]. she is jesse lifted to wheelchair. Pt's spouse 2 weeks ago. - Past Family History Brother(s) Family Medical History: Cancer, Congestive Heart Failure (CHF) Additional Family Medical History / Comment(s): Heart problems, CABG, oral CA, pacemaker/defib. Father Family Medical History: Congestive Heart Failure (CHF), Hyperlipidemia, Hypertension, Myocardial Infarction (CT) Additional Family Medical History / Comment(s): at 97 years old. Mother Family Medical History: Congestive Heart Failure (CHF), CVA/TIA Additional Family Medical History / Comment(s): Pacemaker - January 16 at age 94 a few days after CVA. General Exam - General Exam Comments Initial Comments: GENERAL: Patient is well-developed and well-nourished. Patient is nontoxic and well- hydrated and is in mild distress. ENT: Neck is soft and supple. No significant lymphadenopathy is noted. Oropharynx is clear. Moist mucous membranes. Neck has full range of motion without eliciting any pain. EYES: The sclera were anicteric and conjunctiva were pink and moist. Extraocular movements were intact and pupils were equal round and reactive to light. Eye lids were unremarkable. PULMONARY: Unlabored respirations. Good breath sounds bilaterally. No audible rales rhonchi or wheezing was noted. CARDIOVASCULAR: Patient is tachycardic at 105 beats a minute ABDOMEN: Soft and nontender with normal bowel sounds. SKIN: Skin is clear with no lesions or rashes and otherwise unremarkable. NEUROLOGIC: Patient is alert and oriented x3. Cranial nerves II through XII are grossly intact. Motor and sensory are also intact. Normal speech, volume and content. Symmetrical smile. MUSCULOSKELETAL: Normal extremities with adequate strength and full range of motion. No lower extremity swelling or edema. No calf tenderness. LYMPHATICS: No significant lymphadenopathy is noted PSYCHIATRIC: Normal psychiatric evaluation. Course Vital Signs 07/10/21 07/10/21 07/10/21 19:40 20:30 21:22 Temperature 102.5 F H Pulse Rate 110 H 120 H 102 H Respiratory 18 23 20 Rate Blood Pressure 158/78 159/81 O2 Sat by Pulse 98 96 96 Oximetry 07/10/21 07/11/2107/11/22 23:12 01:01 02:01 Temperature 97.8 F 98.2 F Pulse Rate 112 H 99 95 Respiratory 20 20 20 Rate Blood Pressure 178/88 154/61 139/83 O2 Sat by Pulse 95 95 97 Oximetry Medical Decision Making - Medical Decision Making EKG shows sinus rhythm at 90 bpm ND interval is 124 QRS interval is 89 QT interval 336 QTC is 391. Patient's EKG shows some ST segment depression inferiorly as well as V3 V4 and V5the depressions were seen previously Dr. Calix will be taking over the care of this patient at 9 PM - Lab Data Result diagrams: 07/12/21 04:04 07/12/21 04:04 Lab Results 07/10/21 07/10/21 07/10/21 Range/Units 20:23 20:23 20:23 WBC 11.6 H (3.8-10.6) k/uL RBC 4.03 (3.80-5.40) m/uL Hgb 12.4 (11.4-16.0) gm/dL Hct 37.9 (34.0-46.0) % MCV 93.9 (80.0-100.0) fL MCH 30.7 (25.0-35.0) pg MCHC 32.7 (31.0-37.0) g/dL RDW 13.2 (11.5-15.5) % Plt Count 245 (150-450) k/uL MPV 7.5 Neutrophils % 88 % Lymphocytes % 6 % Monocytes % 4 % Eosinophils % 1 % Basophils % 0 % Neutrophils # 10.2 H (1.3-7.7) k/uL Lymphocytes # 0.7 L (1.0-4.8) k/uL Monocytes # 0.5 (0-1.0) k/uL Eosinophils # 0.1 (0-0.7) k/uL Basophils # 0.0 (0-0.2) k/uL PT 10.1 (9.0-12.0) sec INR 0.9 (<1.2) APTT 22.9 (22.0-30.0) sec Sodium 137 (137-145) mmol/L Potassium 3.9 (3.5-5.1) mmol/L Chloride 104 (98-107) mmol/L Carbon Dioxide 26 (22-30) mmol/L Anion Gap 7 mmol/L BUN 15 (7-17) mg/dL Creatinine 1.06 H (0.52-1.04) mg/dL Est GFR (CKD-EPI)AfAm 60 (>60 ml/min/1.73 sqM) Est GFR (CKD-EPI)NonAf 52 (>60 ml/min/1.73 sqM) Glucose 121 H (74-99) mg/dL Plasma Lactic Acid Ananth (0.7-2.0) mmol/L Calcium 9.1 (8.4-10.2) mg/dL Total Bilirubin 0.9 (0.2-1.3) mg/dL AST 37 H (14-36) U/L ALT 19 (4-34) U/L Alkaline Phosphatase 68 (38-126) U/L Total Protein 6.9 (6.3-8.2) g/dL Albumin 4.0 (3.5-5.0) g/dL Urine Color Urine Appearance (Clear) Urine pH (5.0-8.0) Ur Specific [place] (1.001-1.035) Urine Protein (Negative) Urine Glucose (UA) (Negative) Urine Ketones (Negative) Urine Blood (Negative) Urine Nitrite (Negative) Urine Bilirubin (Negative) Urine Urobilinogen (<2.0) mg/dL Ur Leukocyte Esterase (Negative) Urine RBC (0-5) /hpf Urine WBC (0-5) /hpf Ur Squamous Epith Cells (0-4) /hpf Urine Bacteria (None) /hpf Hyaline Casts (0-2) /lpf Urine Mucus (None) /hpf Coronavirus (PCR) (Not Detectd) Influenza Type A RNA (Not Detectd) Influenza Type B (PCR) (Not Detectd) 07/10/21 07/10/21 07/10/21 Range/Units 20:23 20:23 20:23 WBC (3.8-10.6) k/uL RBC (3.80-5.40) m/uL Hgb (11.4-16.0) gm/dL Hct (34.0-46.0) % MCV (80.0-100.0) fL MCH (25.0-35.0) pg MCHC (31.0-37.0) g/dL RDW (11.5-15.5) % Plt Count (150-450) k/uL MPV Neutrophils % % Lymphocytes % % Monocytes % % Eosinophils % % Basophils % % Neutrophils # (1.3-7.7) k/uL Lymphocytes # (1.0-4.8) k/uL Monocytes # (0-1.0) k/uL Eosinophils # (0-0.7) k/uL Basophils # (0-0.2) k/uL PT (9.0-12.0) sec INR (<1.2) APTT (22.0-30.0) sec Sodium (137-145) mmol/L Potassium (3.5-5.1) mmol/L Chloride (98-107) mmol/L Carbon Dioxide (22-30) mmol/L Anion Gap mmol/L BUN (7-17) mg/dL Creatinine (0.52-1.04) mg/dL Est GFR (CKD-EPI)AfAm (>60 ml/min/1.73 sqM) Est GFR (CKD-EPI)NonAf (>60 ml/min/1.73 sqM) Glucose (74-99) mg/dL Plasma Lactic Acid Ananth 1.2 (0.7-2.0) mmol/L Calcium (8.4-10.2) mg/dL Total Bilirubin (0.2-1.3) mg/dL AST (14-36) U/L ALT (4-34) U/L Alkaline Phosphatase (38-126) U/L Total Protein (6.3-8.2) g/dL Albumin (3.5-5.0) g/dL Urine Color Urine Appearance (Clear) Urine pH (5.0-8.0) Ur Specific [place] (1.001-1.035) Urine Protein (Negative) Urine Glucose (UA) (Negative) Urine Ketones (Negative) Urine Blood (Negative) Urine Nitrite (Negative) Urine Bilirubin (Negative) Urine Urobilinogen (<2.0) mg/dL Ur Leukocyte Esterase (Negative) Urine RBC (0-5) /hpf Urine WBC (0-5) /hpf Ur Squamous Epith Cells (0-4) /hpf Urine Bacteria (None) /hpf Hyaline Casts (0-2) /lpf Urine Mucus (None) /hpf Coronavirus (PCR) Not Detected (Not Detectd) Influenza Type A RNA Not Detected (Not Detectd) Influenza Type B (PCR) Not Detected (Not Detectd) 07/10/21 Range/Units 23:04 WBC (3.8-10.6) k/uL RBC (3.80-5.40) m/uL Hgb (11.4-16.0) gm/dL Hct (34.0-46.0) % MCV (80.0-100.0) fL MCH (25.0-35.0) pg MCHC (31.0-37.0) g/dL RDW (11.5-15.5) % Plt Count (150-450) k/uL MPV Neutrophils % % Lymphocytes % % Monocytes % % Eosinophils % % Basophils % % Neutrophils # (1.3-7.7) k/uL Lymphocytes # (1.0-4.8) k/uL Monocytes # (0-1.0) k/uL Eosinophils # (0-0.7) k/uL Basophils # (0-0.2) k/uL PT (9.0-12.0) sec INR (<1.2) APTT (22.0-30.0) sec Sodium (137-145) mmol/L Potassium (3.5-5.1) mmol/L Chloride (98-107) mmol/L Carbon Dioxide (22-30) mmol/L Anion Gap mmol/L BUN (7-17) mg/dL Creatinine (0.52-1.04) mg/dL Est GFR (CKD-EPI)AfAm (>60 ml/min/1.73 sqM) Est GFR (CKD-EPI)NonAf (>60 ml/min/1.73 sqM) Glucose (74-99) mg/dL Plasma Lactic Acid Ananth (0.7-2.0) mmol/L Calcium (8.4-10.2) mg/dL Total Bilirubin (0.2-1.3) mg/dL AST (14-36) U/L ALT (4-34) U/L Alkaline Phosphatase (38-126) U/L Total Protein (6.3-8.2) g/dL Albumin (3.5-5.0) g/dL Urine Color Yellow Urine Appearance Clear (Clear) Urine pH 6.5 (5.0-8.0) Ur Specific [place] 1.014 (1.001-1.035) Urine Protein 1+ H (Negative) Urine Glucose (UA) Negative (Negative) Urine Ketones Negative (Negative) Urine Blood Moderate H (Negative) Urine Nitrite Positive H (Negative) Urine Bilirubin Negative (Negative) Urine Urobilinogen <2.0 (<2.0) mg/dL Ur Leukocyte Esterase Small H (Negative) Urine RBC 47 H (0-5) /hpf Urine WBC 8 H (0-5) /hpf Ur Squamous Epith Cells <1 (0-4) /hpf Urine Bacteria Rare H (None) /hpf Hyaline Casts 3 H (0-2) /lpf Urine Mucus Rare H (None) /hpf Coronavirus (PCR) (Not Detectd) Influenza Type A RNA (Not Detectd) Influenza Type B (PCR) (Not Detectd) Disposition Disposition: ADMITTED IP TO THIS HOSP
[2021-07-10 20:37] LABS: Basophils % (A) 0 %; Eosinophils # (A) 0.1 k/uL (0-0.7); Eosinophils % (A) 1 %; HCT 37.9 % (34.0-46.0); HGB 12.4 gm/dL (11.4-16.0); Lymphocytes # (A) 0.7 k/uL (1.0-4.8); Lymphocytes % (A) 6 %; MCH 30.7 pg (25.0-35.0); MCHC 32.7 g/dL (31.0-37.0); MCV 93.9 fL (80.0-100.0); Mean Platelet Volume 7.5; Monocytes # (A) 0.5 k/uL (0-1.0); Monocytes % (A) 4 %; Neutrophils # (A) 10.2 k/uL (1.3-7.7); Neutrophils % (A) 88 %; Platelet Count 245 k/uL (150-450); RBC 4.03 m/uL (3.80-5.40); RDW 13.2 % (11.5-15.5); WBC 11.6 k/uL (3.8-10.6)
[2021-07-10 20:53] LABS: Calcium 9.1 mg/dL (8.4-10.2); INR 0.9 (<1.2); Partial Thromboplastin Time 22.9 sec (22.0-30.0); Potassium 3.9 mmol/L (3.5-5.1); Prothrombin Time 10.1 sec (9.0-12.0); Total Bilirubin 0.9 mg/dL (0.2-1.3); Total Protein 6.9 g/dL (6.3-8.2)
[2021-07-10] MEDS ORDERED: cefTRIAXone IN SWFI 1,000 MG/10 ML SYRINGE IVP STA (20:57)
--- NOTE | 2021-07-10 20:58 | XR ---
EXAMINATION TYPE: XR chest 2V DATE OF EXAM: 07/10/2021 8:44 PM COMPARISON: Chest radiographs from 06/26/2019. TECHNIQUE: XR chest 2V Frontal and lateral views of the chest. CLINICAL INDICATION:Female, 75 years old with history of Fever; FINDINGS: Lungs/Pleura: There is no evidence of pleural effusion, focal consolidation, or pneumothorax. Pulmonary vascularity: Unremarkable. Heart/mediastinum: Cardiomediastinal silhouette is unremarkable. Musculoskeletal: No acute osseous pathology. IMPRESSION: No acute cardiopulmonary disease/process.
[2021-07-10] MEDS ORDERED: ONDANSETRON 4 MG/2 ML VIAL IVP STA (22:23)
[2021-07-10] MEDS: cefTRIAXone IN SWFI 1,000 MG/10 ML SYRINGE IVP SCH (22:43)
[2021-07-10 23:25] LABS: Appearance,Urine Clear (Clear); Bacteria,Urine Rare /hpf; Bilirubin,Urine Negative (Negative); Blood,Urine Moderate (Negative); Color,Urine Yellow; Glucose,Urine (UA) Negative (Negative); Hyaline Casts,Urine 3 /lpf (0-2); Ketones,Urine Negative (Negative); Leukocyte Esterase,Urine Small (Negative); Mucus,Urine Rare /hpf; Nitrite,Urine Positive (Negative); PH, Urine 6.5 (5.0-8.0); Protein,Urine 1+ (Negative); RBC,Urine 47 /hpf (0-5); Specific Gravity,Urine 1.014 (1.001-1.035); Squamous Epithelial Cell,Urine <1 /hpf (0-4); Urobilinogen,Urine <2.0 mg/dL (<2.0); WBC,Urine 8 /hpf (0-5)
[2021-07-11] MEDS ORDERED: ONDANSETRON 4 MG/2 ML VIAL IVP PRN (01:12)
[2021-07-11] MEDS ORDERED: NALOXONE 0.4 MG/ML 1 ML VIAL IV PRN (01:12)
[2021-07-11] MEDS: cefTRIAXone IN SWFI 1,000 MG/10 ML SYRINGE IVP SCH (03:34)
[2021-07-11] MEDS: SODIUM CHLORIDE 0.9% 1,000 ML IV SCH ×3 (04:21→17:48)
[2021-07-11] MEDS: PANTOPRAZOLE 40 MG TABLET PO SCH (05:58)
[2021-07-11] MEDS ORDERED: ARTIFICIAL TEARS-HYPROMELLOSE DROPS 15 ML BTL BOTH EYES PRN (08:53)
[2021-07-11] MEDS ORDERED: hydrALAZINE HCL 25 MG TAB PO PRN (09:00)
[2021-07-11] MEDS ORDERED: FAMOTIDINE 20 MG TAB PO SCH (09:00)
[2021-07-11] MEDS: FERROUS SULFATE 325 MG TAB PO SCH (09:51)
[2021-07-11] MEDS: PYRIDOXINE 50 MG TAB PO SCH (09:51)
[2021-07-11] MEDS: ISOSORBIDE MONONITRATE ER 30 MG TAB.ER.24H PO SCH (09:51)
[2021-07-11] MEDS: CYANOCOBALAMIN 500 MCG TAB PO SCH (09:51)
[2021-07-11] MEDS: METOPROLOL SUCCINATE (ER) 50 MG TAB.ER.24H PO SCH (09:52)
[2021-07-11] MEDS: FAMOTIDINE 20 MG TAB PO SCH (09:52)
[2021-07-11] MEDS: PARoxetine 10 MG TAB PO SCH ×2 (09:52→19:59)
[2021-07-11] MEDS: amLODIPine 5 MG TAB PO SCH (09:52)
[2021-07-11] MEDS: MAGNESIUM OXIDE 400 MG TAB PO SCH ×2 (09:53→20:33)
[2021-07-11] MEDS: HEPARIN SODIUM,PORCINE/PF 5,000 UNIT/0.5 ML SYRINGE SQ SCH ×2 (09:53→20:33)
[2021-07-11] MEDS: LORATADINE 10 MG TAB PO SCH (09:53)
[2021-07-11] MEDS: CALCIUM CARB-VIT D 500 MG-5 MCG TAB PO SCH ×2 (09:53→20:33)
--- NOTE | 2021-07-11 10:01 | P.HPIM ---
History of Present Illness H&P Date: 07/11/21 Chief Complaint: fever cellulitis this is a 75-year-old female patient well-known to my services who presented with concerns of fever. Patient currently resides at [facility] on the [facility] and was set per EMS.patient has extensive medical history includes right lower leg amputation, DVT, I disorder, GERD, hyperlipidemia, hypertension, osteoarthritis, pulmonary embolism, renal failure,right stump infection, acute blood loss anemia and frequent UTIs . Chest x-ray completed showing no acute cardiopulmonary disease. COVID-19 negative. Influenza negative. UA completed showing small amount of leukocyte Estrace. White blood cell elevated at 11.6. patient denies any nausea vomiting or abdominal discomfort. Patient denies any upper respiratory symptoms. Small amount of redness noted to left lower extremity. Patient has been started on IV Rocephin. Urine and blood cultures ordered. Infectious disease services have been consulted. Review of Systems please refer to HPI otherwise unremarkable Past Medical History Past Medical History: Deep Vein Thrombosis (DVT), Eye Disorder, GERD/Reflux, Hyperlipidemia, Hypertension, Memory Impairment, Osteoarthritis (OA), Pulmonary Embolus (PE), Renal Disease Additional Past Medical History / Comment(s): Fall 5 days ago with head trauma, has frontal hematoma, chronic oseomylitis R femur/R total knee with infection with surgery/ 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 History of Any Multi-Drug Resistant Organisms: VRE Date of last positivie culture/infection: August 2013 MDRO Source:: Right knee Past Surgical History: Hysterectomy, Joint Replacement, Orthopedic Surgery, Tubal Ligation Additional Past Surgical History / Comment(s): Sternocleidomastoidectomy (right) , right shoulder rotator cuff, rectocele/cystocele, right foot - Varma's neuroma/hammer toe, left outer forearm arthroscopy and shortening left ulna - plates and screws inserted, right wrist bundle of nerves , right knee arthroscopy/realignment of tendon/tibia/kneecap, R femur rods, R tibia with screws, 07-20-13 right knee replacement/removal and antibiotic spacer placed, 08-10-13 large hematoma removed, BL vitrectomies, BL cataract surgery, right right femur benign tumor removed, left foot bone spur, EGD, colonoscopies,. Right AKA done on Feb 13 per Pt of this year. Past Anesthesia/Blood Transfusion Reactions: Postoperative Nausea & Vomiting (PONV) Additional Past Anesthesia/Blood Transfusion Reaction / Comment(s): no complications with prior blood transfusion Past Psychological History: Anxiety, Depression Additional Psychological History / Comment(s): Pt at [facility]. she is jesse lifted to wheelchair. Pt's spouse 2 weeks ago. Smoking Status: Never smoker Past Alcohol Use History: None Reported Past Drug Use History: None Reported - Past Family History Brother(s) Family Medical History: Cancer, Congestive Heart Failure (CHF) Additional Family Medical History / Comment(s): Heart problems, CABG, oral CA, pacemaker/defib. Father Family Medical History: Congestive Heart Failure (CHF), Hyperlipidemia, Hypertension, Myocardial Infarction ([place]) Additional Family Medical History / Comment(s): at 97 years old. Mother Family Medical History: Congestive Heart Failure (CHF), CVA/TIA Additional Family Medical History / Comment(s): Pacemaker - January 16 at age 94 a few days after CVA. Medications and Allergies Home Medications Medication Instructions Recorded Confirmed Type allopurinoL [Zyloprim] 300 mg PO HS@209908/21/14 07/10/21 History Multivitamins, Thera [Multivitamin 1 tab PO HS@2100 11/17/15 07/10/21 History (formulary)] Isosorbide Mononitrate ER [Imdur] 30 mg PO DAILY@0900 02/02/18 07/10/21 History Pravastatin Sodium [Pravachol] 20 mg PO HS@2100 02/02/18 07/10/21 History PARoxetine HCL [Paxil] 30 mg PO BID@0900,1700 03/27/18 07/10/21 History Calcium Carbonate/Vitamin D3 1 tab PO BID@0900,2100 12/21/19 04/14/22 History [Calcium 600-Vit D3 10 mcg (400 Iu)] LORazepam [Ativan] 0.5 mg PO HS@209903/18/19 07/10/21 History ondansetron HCL [Zofran] 4 mg PO Q6H PRN 03/18/19 07/10/21 History Artificial Tears-Hypromellose 1 drop BOTH EYES Q1H PRN 06/18/19 07/10/21 History [Artificial Tear Drops] Cyanocobalamin [Vitamin B-12] 500 mcg PO DAILY@0900 06/18/19 07/10/21 History Ferrous Sulfate [Feosol] 325 mg PO DAILY@0900 06/18/19 07/10/21 History Folic Acid 1 mg PO HS@209906/18/19 07/10/21 History Loperamide [Imodium] 2 mg PO Q6H PRN 06/18/19 07/10/21 History Magnesium Oxide 400 mg PO BID@0900,209906/18/19 07/10/21 History Metoprolol Succinate (ER) [Toprol 50 mg PO DAILY@0900 06/18/19 07/10/21 History XL] Pantoprazole Sodium [Protonix] 40 mg PO DAILY@0600 06/18/19 07/10/21 History Acetaminophen Tab [Tylenol] 500 mg PO Q6HR PRN 07/10/21 07/10/21 History Acetaminophen Tab [Tylenol] 650 mg PO Q4H PRN 07/10/21 07/10/21 History Ammonium Lactate Lotion 1 applic TOPICAL HS 07/10/21 07/10/21 History [Lac-Hydrin 12% Lotion] Calcium Carbonate [Tums] 1,000 mg PO Q6H PRN 07/10/21 07/10/21 History Cetirizine HCl 10 mg PO DAILY@0900 07/10/21 07/10/21 History Denosumab [Prolia] 60 mg SQ Q180D 07/10/21 07/10/21 History Depo-Medrol Suspension 40mg/Ml 40 mg IM Q24HR PRN 07/10/21 07/10/21 History Fenofibrate Nanocrystallized 145 mg PO DAILY@1400 07/10/21 07/10/21 History [Tricor] Fluticasone Nasal [place] [Flonase 1 spray EA NOSTRIL BID@0900,2100 07/10/21 07/10/21 History Nasal Nesbit] Furosemide [Lasix] 20 mg PO Q48H 07/10/21 07/10/21 History Hydrocortisone Cream 1 applic TOPICAL DAILY PRN 07/10/21 07/10/21 History [Hydrocortisone 2.5% Cream] Ketoconazole 2% Shampoo [Nizoral] 1 applic TOPICAL MOTH 07/10/21 07/10/21 History Lidocaine Hcl Solution 1% 1 applic IM Q24H PRN 07/10/21 07/10/21 History Losartan [Cozaar] 25 mg PO HS@2100 07/10/21 07/10/21 History Menthol [Biofreeze] 1 applic TOPICAL Q6H PRN 07/10/21 07/10/21 History Pyridoxine [Vitamin B-6] 50 mg PO DAILY@0900 07/10/21 07/10/21 History Vit C/E/Zn/Coppr/Lutein/Zeaxan 2 cap PO DAILY@0900 07/10/21 07/10/21 History [Preservision Areds 2 Softgel] Zguard 1 applic TOPICAL BID 07/10/21 07/10/21 History amLODIPine [Norvasc] 5 mg PO DAILY@0900 07/10/21 07/10/21 History diphenhydrAMINE HCL [Benadryl] 25 mg PO BID PRN 07/10/21 07/10/21 History guaiFENesin [guaiFENesin Oral 200 mg PO Q4H PRN 07/10/21 07/10/21 History Solution] hydrALAZINE HCL 25 mg PO TID PRN 07/10/21 07/10/21 History hydrALAZINE HCL 25 mg PO TID@0600,1400,2200 07/10/21 07/10/21 History Allergies Allergy/AdvReac Type Severity Reaction Status Date / Time adhesive Allergy Rash/Hives Verified 07/10/21 22:22 carbamazepine [From Tegretol] Allergy Rash/Hives Verified 07/10/21 22:22 carisoprodol [From Soma] Allergy lowers b/p Verified 07/10/21 22:22 quickly & passes out corn Allergy Diarrhea Verified 07/10/21 22:22 doxycycline calcium Allergy Rash/Hives Verified 07/10/21 22:22 [From Vibramycin] doxycycline hyclate Allergy Rash/Hives,vomited Verified 07/10/21 22:22 [From Vibramycin] blood doxycycline monohydrate Allergy Rash/Hives,vomited Verified 07/10/21 22:22 [From Vibramycin] blood erythromycin base Allergy Rash/Hives,vomited Verified 07/10/21 22:22 [From E-Mycin] blood hydrocodone bitartrate Allergy abdominal Verified 07/10/21 22:22 [From Vicodin] pain, diarrhea NSAIDS (Non-Steroidal Allergy Swelling Verified 07/10/21 22:22 Anti-Inflamma piroxicam [From Feldene] Allergy Swelling Verified 07/10/21 22:22 ciprofloxacin [From Cipro] AdvReac Nausea & Verified 07/10/21 22:22 Vomiting wheat AdvReac Diarrhea Verified 07/10/21 22:22 Physical Exam Vitals: Vital Signs Temp Pulse Pulse Resp BP BP Pulse Ox 07/11/21 07:58 81 16 07/11/21 07:49 97.9 F 81 16 125/69 99 07/11/21 03:20 98.7 F 88 18 111/70 98 07/11/21 02:01 98.2 F 95 20 139/83 97 07/11/21 01:01 99 20 154/61 95 07/10/21 23:12 97.8 F 112 H 20 178/88 95 07/10/21 21:22 102 H 20 159/81 96 07/10/21 20:30 120 H 23 96 07/10/21 19:40 102.5 F H 110 H 18 158/78 98 Intake and Output 07/10/21 07/11/21 07/11/21 22:59 06:59 14:59 Output Total 250 Balance -250 Output: Urine 250 Straight 250 Other: # Voids 1 Weight 104.78 kg 104.78 kg Head normocephalic Neck supple Lungs clear to auscultation bilaterally no wheezing or crackles Heart regular rate and rhythm S1-S2, no rub or gallop Abdomen is soft nontender nondistended positive bowel sounds no hepatosplenomegaly Extremities no edema. Left lower extremity redness Neuro alert and orientated to 3 Results CBC & Chem 7: 07/10/21 20:23 07/10/21 20:23 Labs: Abnormal Lab Results - Last 24 Hours (Table) 07/10/21 07/10/21 07/10/21 Range/Units 20:23 20:23 23:04 WBC 11.6 H (3.8-10.6) k/uL Neutrophils # 10.2 H (1.3-7.7) k/uL Lymphocytes # 0.7 L (1.0-4.8) k/uL Creatinine 1.06 H (0.52-1.04) mg/dL Glucose 121 H (74-99) mg/dL AST 37 H (14-36) U/L Urine Protein 1+ H (Negative) Urine Blood Moderate H (Negative) Urine Nitrite Positive H (Negative) Ur Leukocyte Esterase Small H (Negative) Urine RBC 47 H (0-5) /hpf Urine WBC 8 H (0-5) /hpf Urine Bacteria Rare H (None) /hpf Hyaline Casts 3 H (0-2) /lpf Urine Mucus Rare H (None) /hpf Thrombosis Risk Factor Assmnt - Choose All That Apply Any of the Below Risk Factors Present?: Yes Each Factor Represents 1 point: Obesity (BMI >25) Each Risk Factor Represents 3 Points: Age 75 years or older Thrombosis Risk Factor Assessment Total Risk Factor Score: 4 Thrombosis Risk Factor Assessment Level: Moderate Risk Assessment and Plan Assessment: 1. Fever secondary to possible cellulitis. 2. Urinary tract infection. Urine culture ordered 3. History of subarachnoid hemorrhage 4. History of hypertension 5. 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 History of anemia DVT prophylaxis heparin. GI prophylaxis Protonix patient started on IV Rocephin Blood and urine cultures ordered Infectious disease service is consulted
[2021-07-11 10:09] LABS: Basophils % (A) 0 %; Eosinophils # (A) 0.1 k/uL (0-0.7); Eosinophils % (A) 1 %; HCT 38.8 % (34.0-46.0); HGB 12.4 gm/dL (11.4-16.0); Lymphocytes % (A) 13 %; MCHC 31.8 g/dL (31.0-37.0); MCV 97.4 fL (80.0-100.0); Mean Platelet Volume 7.6; Monocytes # (A) 0.6 k/uL (0-1.0); Monocytes % (A) 7 %; Neutrophils # (A) 6.4 k/uL (1.3-7.7); Neutrophils % (A) 77 %; Platelet Count 236 k/uL (150-450); RBC 3.98 m/uL (3.80-5.40); RDW 13.4 % (11.5-15.5); WBC 8.3 k/uL (3.8-10.6)
[2021-07-11 10:21] LABS: ALT 18 U/L (4-34); AST 31 U/L (14-36); African American GFR (CKD) 69 (>60 ml/min/1.73 sqM); Albumin 3.4 g/dL (3.5-5.0); Albumin/Globulin Ratio 1.2; Alkaline Phosphatase 48 U/L (38-126); Anion Gap 8 mmol/L; Blood Urea Nitrogen 14 mg/dL (7-17); Calcium 8.4 mg/dL (8.4-10.2); Carbon Dioxide 23 mmol/L (22-30); Chloride 110 mmol/L (98-107); Globulin 2.8 g/dL; Glucose 103 mg/dL (74-99); Non-African American GFR(CKD) 60 (>60 ml/min/1.73 sqM); Potassium 3.8 mmol/L (3.5-5.1); Sodium 141 mmol/L (137-145); Total Bilirubin 0.5 mg/dL (0.2-1.3); Total Protein 6.2 g/dL (6.3-8.2)
[2021-07-11] MEDS: FLUTICASONE 50MCG/SPRAY NASAL 16GM EA NOSTRIL SCH ×2 (11:01→20:34)
[2021-07-11] MEDS: ACETAMINOPHEN TAB 325 MG TAB PO PRN ×2 (11:07→20:46)
[2021-07-11] MEDS: CALCIUM CARBONATE 500 MG CHEWABLE PO PRN (12:55)
[2021-07-11] MEDS: FENOFIBRATE 160 MG TAB PO SCH (13:13)
[2021-07-11] MEDS: LORazepam 0.5 MG TAB PO SCH (20:33)
[2021-07-11] MEDS: allopurinoL 300 MG TAB PO SCH (20:33)
[2021-07-11] MEDS: FOLIC ACID 1 MG TAB PO SCH (20:33)
[2021-07-11] MEDS: PRAVASTATIN SODIUM 20 MG TAB PO SCH (20:33)
[2021-07-11] MEDS: LOSARTAN 25 MG TAB PO SCH (20:33)
[2021-07-11] MEDS: AMMONIUM LACTATE 12% LOTION 225 GM BTL TOPICAL SCH (20:34)
--- NOTE | 2021-07-11 21:30 | P.CONS ---
History of Present Illness - Reason for Consult Consult date: 07/11/21 Left leg cellulitis Requesting physician: Gage Gastelum - Chief Complaint not feeling well x 1 day - History of Present Illness Patient is a 75-year-old female residential resident with a previous history of right [id number] amputation, patient was sent to the ER yesterday for evaluation of the patient not feeling well patient felt warm, on presentation to the hospital the patient did have a fever of 102.5 degrees Fahrenheit patient did have white count of 11.6 with a left shift creatinine was mild elevated did have a positive UA, COVID was negative influenza PCR was negative patient did have a chest x-ray no acute cardiopulmonary process patient was noticed to have erythema to the left lower extremity concerning for cellulitis patient was started on Rocephin and admitted to hospital infectious was consulted for further management of antibiotic therapy, patient is complaining of pain to the left lower leg especially with pressure or if it is lying down more for the laking pain about 2-3 of 10 no radiation currently do not have any blister or any open wound and no drainage denies any chest pain or shortness of breath or cough abdominal pain or diarrhea Review of Systems Positive point has been mentioned in the HPI rest of the systems are negative Past Medical History Past Medical History: Deep Vein Thrombosis (DVT), Eye Disorder, GERD/Reflux, Hyperlipidemia, Hypertension, Memory Impairment, Osteoarthritis (OA), Pulmonary Embolus (PE), Renal Disease Additional Past Medical History / Comment(s): Fall 5 days ago with head trauma, has frontal hematoma, chronic oseomylitis R femur/R total knee with infection with surgery/ 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 MDRO Source:: Right knee Past Surgical History: Hysterectomy, Joint Replacement, Orthopedic Surgery, Tubal Ligation Additional Past Surgical History / Comment(s): Sternocleidomastoidectomy (right), right shoulder rotator cuff, rectocele/cystocele, right foot - Varma's neuroma/hammer toe, left outer forearm arthroscopy and shortening left ulna - plates and screws inserted, right wrist bundle of nerves , right knee arthroscopy/realignment of tendon/tibia/kneecap, R femur rods, R tibia with screws, 07-20-13 right knee replacement/removal and antibiotic spacer placed, 08-10-13 large hematoma removed, BL vitrectomies, BL cataract surgery, right right femur benign tumor removed, left foot bone spur, EGD, colonoscopies,. Right AKA done on Feb 13 per Pt of this year. Past Anesthesia/Blood Transfusion Reactions: Postoperative Nausea & Vomiting (PONV) Additional Past Anesthesia/Blood Transfusion Reaction / Comm: no complications with prior blood transfusion Past Psychological History: Anxiety, Depression Additional Psychological History / Comment(s): Pt at [facility]. she is jesse lifted to wheelchair. Pt's spouse 2 weeks ago. Smoking Status: Never smoker Past Alcohol Use History: None Reported Past Drug Use History: None Reported - Past Family History Brother(s) Family Medical History: Cancer, Congestive Heart Failure (CHF) Additional Family Medical History / Comment(s): Heart problems, CABG, oral CA, pacemaker/defib. Father Family Medical History: Congestive Heart Failure (CHF), Hyperlipidemia, Hypertension, Myocardial Infarction ([place]) Additional Family Medical History / Comment(s): at 97 years old. Mother Family Medical History: Congestive Heart Failure (CHF), CVA/TIA Additional Family Medical History / Comment(s): Pacemaker - January 16 at age 94 a few days after CVA. Medications and Allergies Home Medications Medication Instructions Recorded Confirmed Type allopurinoL [Zyloprim] 300 mg PO HS@2100 08/21/14 07/10/21 History Multivitamins, Thera [Multivitamin 1 tab PO HS@2100 11/17/15 07/10/21 History (formulary)] Isosorbide Mononitrate ER [Imdur] 30 mg PO DAILY@0900 02/02/18 07/10/21 History Pravastatin Sodium [Pravachol] 20 mg PO HS@209902/02/18 07/10/21 History PARoxetine HCL [Paxil] 30 mg PO BID@0900,1700 03/27/18 07/10/21 History Calcium Carbonate/Vitamin D3 1 tab PO BID@0900,2100 03/18/19 07/10/21 History [Calcium 600-Vit D3 10 mcg (400 Iu)] LORazepam [Ativan] 0.5 mg PO HS@209903/18/19 07/10/21 History ondansetron HCL [Zofran] 4 mg PO Q6H PRN 03/18/19 07/10/21 History Artificial Tears-Hypromellose 1 drop BOTH EYES Q1H PRN 06/18/19 07/10/21 History [Artificial Tear Drops] Cyanocobalamin [Vitamin B-12] 500 mcg PO DAILY@0900 06/18/19 07/10/21 History Ferrous Sulfate [Feosol] 325 mg PO DAILY@0900 06/18/19 07/10/21 History Folic Acid 1 mg PO HS@209906/18/19 07/10/21 History Loperamide [Imodium] 2 mg PO Q6H PRN 06/18/19 07/10/21 History Magnesium Oxide 400 mg PO BID@0900,209906/18/19 07/10/21 History Metoprolol Succinate (ER) [Toprol 50 mg PO DAILY@0900 06/18/19 07/10/21 History XL] Pantoprazole Sodium [Protonix] 40 mg PO DAILY@0600 06/18/19 07/10/21 History Acetaminophen Tab [Tylenol] 500 mg PO Q6HR PRN 07/10/21 07/10/21 History Acetaminophen Tab [Tylenol] 650 mg PO Q4H PRN 07/10/21 07/10/21 History Ammonium Lactate Lotion 1 applic TOPICAL HS 07/10/21 07/10/21 History [Lac-Hydrin 12% Lotion] Calcium Carbonate [Tums] 1,000 mg PO Q6H PRN 07/10/21 07/10/21 History Cetirizine HCl 10 mg PO DAILY@0900 07/10/21 07/10/21 History Denosumab [Prolia] 60 mg SQ Q180D 07/10/21 07/10/21 History Depo-Medrol Suspension 40mg/Ml 40 mg IM Q24HR PRN 07/10/21 07/10/21 History Fenofibrate Nanocrystallized 145 mg PO DAILY@1400 07/10/21 07/10/21 History [Tricor] Fluticasone Nasal [place] [Flonase 1 spray EA NOSTRIL BID@0900,2100 07/10/21 07/10/21 History Nasal [place]] Furosemide [Lasix] 20 mg PO Q48H 07/10/21 07/10/21 History Hydrocortisone Cream 1 applic TOPICAL DAILY PRN 07/10/21 07/10/21 History [Hydrocortisone 2.5% Cream] Ketoconazole 2% Shampoo [Nizoral] 1 applic TOPICAL MOTH 07/10/21 07/10/21 History Lidocaine Hcl Solution 1% 1 applic IM Q24H PRN 07/10/21 07/10/21 History Losartan [Cozaar] 25 mg PO HS@2100 07/10/21 07/10/21 History Menthol [Biofreeze] 1 applic TOPICAL Q6H PRN 07/10/21 07/10/21 History Pyridoxine [Vitamin B-6] 50 mg PO DAILY@0900 07/10/21 07/10/21 History Vit C/E/Zn/Coppr/Lutein/Zeaxan 2 cap PO DAILY@0900 07/10/21 07/10/21 History [Preservision Areds 2 Softgel] Zguard 1 applic TOPICAL BID 07/10/21 07/10/21 History amLODIPine [Norvasc] 5 mg PO DAILY@0900 07/10/21 07/10/21 History diphenhydrAMINE HCL [Benadryl] 25 mg PO BID PRN 07/10/21 07/10/21 History guaiFENesin [guaiFENesin Oral 200 mg PO Q4H PRN 07/10/21 07/10/21 History Solution] hydrALAZINE HCL 25 mg PO TID PRN 07/10/21 07/10/21 History hydrALAZINE HCL 25 mg PO TID@0600,1400,2200 07/10/21 07/10/21 History Allergies Allergy/AdvReac Type Severity Reaction Status Date / Time adhesive Allergy Rash/Hives Verified 07/10/21 22:22 carbamazepine [From Tegretol] Allergy Rash/Hives Verified 07/10/21 22:22 carisoprodol [From Soma] Allergy lowers b/p Verified 07/10/21 22:22 quickly & passes out corn Allergy Diarrhea Verified 07/10/21 22:22 doxycycline calcium Allergy Rash/Hives Verified 07/10/21 22:22 [From Vibramycin] doxycycline hyclate Allergy Rash/Hives,vomited Verified 07/10/21 22:22 [From Vibramycin] blood doxycycline monohydrate Allergy Rash/Hives,vomited Verified 07/10/21 22:22 [From Vibramycin] blood erythromycin base Allergy Rash/Hives,vomited Verified 07/10/21 22:22 [From E-Mycin] blood hydrocodone bitartrate Allergy abdominal Verified 07/10/21 22:22 [From Vicodin] pain, diarrhea NSAIDS (Non-Steroidal Allergy Swelling Verified 07/10/21 22:22 Anti-Inflamma piroxicam [From Feldene] Allergy Swelling Verified 07/10/21 22:22 ciprofloxacin [From Cipro] AdvReac Nausea & Verified 07/10/21 22:22 Vomiting wheat AdvReac Diarrhea Verified 07/10/21 22:22 Physical Exam Vitals: Vital Signs Temp Pulse Pulse Resp BP BP Pulse Ox 07/11/21 07:58 81 16 07/11/21 07:49 97.9 F 81 16 125/69 99 07/11/21 03:20 98.7 F 88 18 111/70 98 07/11/21 02:01 98.2 F 95 20 139/83 97 07/11/21 01:01 99 20 154/61 95 07/10/21 23:12 97.8 F 112 H 20 178/88 95 07/10/21 21:22 102 H 20 159/81 96 07/10/21 20:30 120 H 23 96 07/10/21 19:40 102.5 F H 110 H 18 158/78 98 Intake and Output 07/10/21 07/11/21 07/11/21 22:59 06:59 14:59 Output Total 250 Balance -250 Output: Urine 250 Straight 250 Other: # Voids 1 Weight 104.78 kg 104.78 kg GENERAL DESCRIPTION: Elderly female lying in bed, no distress. No tachypnea or accessory muscle of respiration use. HEENT: Shows Pallor , no scleral icterus. Oral mucous membrane is dry. No pharyngeal erythema or thrush NECK: Trachea central, no thyromegaly. LUNGS: Unlabored breathing. Clear to auscultation anteriorly. No wheeze or crackle. HEART: S1, S2, regular rate and rhythm. No loud murmur ABDOMEN: Soft, no tenderness , guarding or rigidity, no organomegaly EXTREMITIES: Left lower leg with a minimal redness slightly warm to touch and tender SKIN: No rash, no masses palpable. NEUROLOGICAL: The patient is awake, alert, oriented x3, mood and affect normal. Results CBC & Chem 7: 07/11/21 09:42 07/11/21 09:42 Labs: Abnormal Lab Results - Last 24 Hours (Table) 07/10/21 07/10/21 07/10/21 Range/Units 20:23 20:23 23:04 WBC 11.6 H (3.8-10.6) k/uL Neutrophils # 10.2 H (1.3-7.7) k/uL Lymphocytes # 0.7 L (1.0-4.8) k/uL Chloride (98-107) mmol/L Creatinine 1.06 H (0.52-1.04) mg/dL Glucose 121 H (74-99) mg/dL AST 37 H (14-36) U/L Total Protein (6.3-8.2) g/dL Albumin (3.5-5.0) g/dL Urine Protein 1+ H (Negative) Urine Blood Moderate H (Negative) Urine Nitrite Positive H (Negative) Ur Leukocyte Esterase Small H (Negative) Urine RBC 47 H (0-5) /hpf Urine WBC 8 H (0-5) /hpf Urine Bacteria Rare H (None) /hpf Hyaline Casts 3 H (0-2) /lpf Urine Mucus Rare H (None) /hpf 07/11/21 Range/Units 09:42 WBC (3.8-10.6) k/uL Neutrophils # (1.3-7.7) k/uL Lymphocytes # (1.0-4.8) k/uL Chloride 110 H (98-107) mmol/L Creatinine (0.52-1.04) mg/dL Glucose 103 H (74-99) mg/dL AST (14-36) U/L Total Protein 6.2 L (6.3-8.2) g/dL Albumin 3.4 L (3.5-5.0) g/dL Urine Protein (Negative) Urine Blood (Negative) Urine Nitrite (Negative) Ur Leukocyte Esterase (Negative) Urine RBC (0-5) /hpf Urine WBC (0-5) /hpf Urine Bacteria (None) /hpf Hyaline Casts (0-2) /lpf Urine Mucus (None) /hpf Assessment and Plan (1) Cellulitis Current Visit: No Status: Acute Code(s): L03.90 - CELLULITIS, UNSPECIFIED SNOMED Code(s): 120611618 Plan: 1patient is in the hospital with sepsis and has been to have fever elevated white count source likely left lower extremity cellulitis plus minus a component of UTI , likely from enteric gram negative in this patient during clinic response to the initial antibiotic of Rocephin. 2Marked area with redness to the left leg. 3we will switch antibiotic therapy to cefazolin 2 g every 8 hours. We will follow on clinical condition and cultures to further adjust medication if needed Thank you for this consultation will follow this patient along with you Time with Patient: Greater than 30
[2021-07-12] MEDS: SODIUM CHLORIDE 0.9% 1,000 ML IV SCH ×3 (03:01→19:57)
[2021-07-12] MEDS: PANTOPRAZOLE 40 MG TABLET PO SCH (06:08)
[2021-07-12] MEDS: FUROSEMIDE 20 MG TAB PO SCH (06:08)
[2021-07-12] MEDS: ACETAMINOPHEN TAB 325 MG TAB PO PRN ×3 (06:24→20:40)
[2021-07-12] MEDS: FERROUS SULFATE 325 MG TAB PO SCH ×2 (08:17→08:18)
[2021-07-12] MEDS: FLUTICASONE 50MCG/SPRAY NASAL 16GM EA NOSTRIL SCH ×2 (08:17→19:19)
[2021-07-12] MEDS: HEPARIN SODIUM,PORCINE/PF 5,000 UNIT/0.5 ML SYRINGE SQ SCH ×2 (08:17→19:18)
[2021-07-12] MEDS: CYANOCOBALAMIN 500 MCG TAB PO SCH (08:18)
[2021-07-12] MEDS: FAMOTIDINE 20 MG TAB PO SCH (08:18)
[2021-07-12] MEDS: CALCIUM CARB-VIT D 500 MG-5 MCG TAB PO SCH ×2 (08:18→19:18)
[2021-07-12] MEDS: ISOSORBIDE MONONITRATE ER 30 MG TAB.ER.24H PO SCH (08:18)
[2021-07-12] MEDS: METOPROLOL SUCCINATE (ER) 50 MG TAB.ER.24H PO SCH (08:18)
[2021-07-12] MEDS: LORATADINE 10 MG TAB PO SCH (08:18)
[2021-07-12] MEDS: MAGNESIUM OXIDE 400 MG TAB PO SCH ×2 (08:18→19:18)
[2021-07-12] MEDS: amLODIPine 5 MG TAB PO SCH (08:18)
[2021-07-12] MEDS: PYRIDOXINE 50 MG TAB PO SCH (08:19)
[2021-07-12] MEDS: PARoxetine 10 MG TAB PO SCH ×2 (08:19→16:24)
[2021-07-12 08:51] LABS: Basophils # (A) 0.03 X 10*3/uL (0.00-0.10); Basophils % (A) 0.4 %; Eosinophils # (A) 0.13 X 10*3/uL (0.04-0.35); Eosinophils % (A) 1.8 %; HCT 36.3 % (37.2-46.3); HGB 11.4 g/dL (12.0-15.0); Immature Grans, Automated 0.3 %; Lymphocytes # (A) 1.08 X 10*3/uL (0.90-5.00); Lymphocytes % (A) 14.9 %; MCH 30.4 pg (27.0-32.0); MCHC 31.4 g/dL (32.0-37.0); MCV 96.8 fL (80.0-97.0); Mean Platelet Volume 10.8 fL (9.5-12.2); Monocytes # (A) 0.81 X 10*3/uL (0.20-1.00); Monocytes % (A) 11.2 %; NRBC Per 100 WBC 0 /100 WBCS (0.0-0.0); Neutrophils # (A) 5.18 X 10*3/uL (1.80-7.70); Neutrophils % (A) 71.4 %; Platelet Count 237 X 10*3/uL (140-440); RBC 3.75 X 10*6/uL (4.10-5.20); RDW 13.9 % (11.5-14.5); WBC 7.25 X 10*3/uL (4.50-10.00)
[2021-07-12 09:01] LABS: African American GFR (CKD) 63.8 (60.0-200.0); Albumin 3.8 g/dL (3.8-4.9); Albumin/Globulin Ratio 1.58 (1.60-3.17); Anion Gap 8.1 mmol/L (10.00-18.00); BUN/Creat Ratio 14.1 Ratio (12.00-20.00); Blood Urea Nitrogen 14.1 mg/dL (9.0-27.0); Calcium 8.6 mg/dL (8.7-10.3); Carbon Dioxide 26.9 mmol/L (20.0-27.5); Globulin 2.4 g/dL (1.6-3.3); Non-African American GFR(CKD) 55.1 (60.0-200.0); Potassium 3.8 mmol/L (3.5-5.5); Total Bilirubin 0.2 mg/dL (0.30-1.20); Total Protein 6.2 g/dL (6.2-8.2)
[2021-07-12] MEDS: CALCIUM CARBONATE 500 MG CHEWABLE PO PRN (09:15)
--- NOTE | 2021-07-12 10:21 | P.PN ---
Subjective Progress Note Date: 07/12/21 this is a 75-year-old female patient well-known to my services who presented with concerns of fever. Patient currently resides at [facility] on the [place] and was set per EMS.patient has extensive medical history includes right lower leg amputation, DVT, I disorder, GERD, hyperlipidemia, hypertension, osteoarthritis, pulmonary embolism, renal failure,right stump infection, acute blood loss anemia and frequent UTIs . Chest x-ray completed showing no acute cardiopulmonary disease. COVID-19 negative. Influenza negative. UA completed showing small amount of leukocyte Estrace. White blood cell elevated at 11.6. patient denies any nausea vomiting or abdominal discomfort. Patient denies any upper resp iratory symptoms. Small amount of redness noted to left lower extremity. Patient has been started on IV Rocephin. Urine and blood cultures ordered. Infectious disease services have been consulted. On 07/12/2021 patient is alert and oriented 3. White Blood cell improving to 8.3. Patient has been afebrile. Patient antibiotics adjusted cefazolin per ID treatment for cellulitis with UTI urine culture pending. Patient denies chest pain or shortness breath. Patient denies nausea vomiting or diarrhea. Patient denies any urinary burning or frequency As of 07/13/[address] Gusman will be covering for Dr. Gastelum Objective - Vital Signs Vital signs: Vital Signs Temp 98.7 F 07/12/21 07:14 Pulse 81 07/12/21 08:21 Resp 17 07/12/21 08:21 BP 141/74 07/12/21 07:14 Pulse Ox 95 07/12/21 07:14 Intake & Output 07/11/21 07/12/21 07/12/21 18:59 06:59 18:59 Intake Total 1080 Balance 1080 Intake: Oral 1080 Other: # Voids 2 1 - Exam Head normocephalic Neck supple Lungs clear to auscultation bilaterally no wheezing or crackles Heart regular rate and rhythm S1-S2, no rub or gallop Abdomen is soft nontender nondistended positive bowel sounds no hepatosplenomegaly Extremities no edema. Left lower extremity redness Neuro alert and orientated to 3 - Labs CBC & Chem 7: 07/12/21 04:04 07/12/21 04:04 Labs: Abnormal Lab Results - Last 24 Hours (Table) 04/07/12/21 07/12/21 Range/Units 09:42 04:04 04:04 RBC 3.75 L (4.10-5.20) X 10*6/uL Hgb 11.4 L (12.0-15.0) g/dL Hct 36.3 L (37.2-46.3) % MCHC 31.4 L (32.0-37.0) g/dL Chloride 110 H (98-107) mmol/L Anion Gap 8.10 L (10.00-18.00) mmol/L Est GFR (CKD-EPI)NonAf 55.1 L (60.0-200.0) Glucose 103 H (74-99) mg/dL Calcium 8.6 L (8.7-10.3) mg/dL Total Bilirubin 0.20 L (0.30-1.20) mg/dL Total Protein 6.2 L (6.3-8.2) g/dL Albumin 3.4 L (3.5-5.0) g/dL Albumin/Globulin Ratio 1.58 L (1.60-3.17) g/dL Microbiology - Last 24 Hours (Table) 07/10/21 22:27 Blood Culture - Preliminary Blood No Growth after 24 hours 07/11/21 17:00 Urine Culture - Preliminary Urine,Clean Catch Assessment and Plan Assessment: 1. Fever secondary tocellulitis. 2. Urinary tract infection. Urine culture ordered 3. History of subarachnoid hemorrhage 4. History of hypertension 5. 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 History of anemia DVT prophylaxis heparin. GI prophylaxis Protonix patient started on IV Rocephin Blood and urine cultures ordered Infectious disease service is consulted
[2021-07-12] MEDS: DOCUSATE 100 MG CAP PO SCH (14:16)
[2021-07-12] MEDS: FENOFIBRATE 160 MG TAB PO SCH (14:20)
--- NOTE | 2021-07-12 18:01 | P.PN ---
Subjective Progress Note Date: 07/12/21 Principal diagnosis: Left lower extremity cellulitis and UTI Patient is a 75-year-old female [facility] resident who was brought to the hospital with sepsis in this patient did have fever and elevated white count to discharge have a positive UA and left lower extremity cellulitis On today's evaluation her that is 07/12/2021, the patient denies having any fever or any chills, the patient is feeling slightly better, denies having any chest pain shortness of breath or cough no abdominal pain did have occasional burning of urine and no worsening discomfort the left leg Objective - Vital Signs Vital signs: Vital Signs Temp 99 F 07/12/21 13:48 Pulse 84 07/12/21 13:48 Resp 18 07/12/21 13:48 BP 111/57 07/12/21 13:48 Pulse Ox 93 L 07/12/21 13:48 Intake & Output 07/11/21 07/12/21 07/12/21 18:59 06:59 18:59 Intake Total 1080 Balance 1080 Intake: Oral 1080 Other: # Voids 2 1 - Exam GENERAL DESCRIPTION: An elderly female lying in bed in no distress RESPIRATORY SYSTEM: Unlabored breathing , decreased breath sounds at bases HEART: S1 S2 regular rate and rhythm , ABDOMEN: Soft , no tenderness EXTREMITIES: Left leg with swelling and minimal redness - Labs CBC & Chem 7: 07/12/21 04:04 07/12/21 04:04 Labs: Abnormal Lab Results - Last 24 Hours (Table) 07/12/21 07/12/21 Range/Units 04:04 04:04 RBC 3.75 L (4.10-5.20) X 10*6/uL Hgb 11.4 L (12.0-15.0) g/dL Hct 36.3 L (37.2-46.3) % MCHC 31.4 L (32.0-37.0) g/dL Anion Gap 8.10 L (10.00-18.00) mmol/L Est GFR (CKD-EPI)NonAf 55.1 L (60.0-200.0) Calcium 8.6 L (8.7-10.3) mg/dL Total Bilirubin 0.20 L (0.30-1.20) mg/dL Albumin/Globulin Ratio 1.58 L (1.60-3.17) g/dL Microbiology - Last 24 Hours (Table) 07/10/21 22:27 Blood Culture - Preliminary Blood No Growth after 24 hours 07/11/21 17:00 Urine Culture - Preliminary Urine,Clean Catch Assessment and Plan (1) Cellulitis Current Visit: Yes Status: Acute Code(s): L03.90 - CELLULITIS, UNSPECIFIED SNOMED Code(s): 653004732 Plan: 1patient is in the hospital with sepsis and has been to have fever elevated white count source likely left lower extremity cellulitis plus minus a component of UTI , likely from enteric gram negative in this patient during clinic r esponse to the initial antibiotic of Rocephin. 2patient seemed to have shown clinical improvement and will continue cefazolin 2 g every 8 hours while waiting for the culture to be finalize. Time with Patient: Less than 30
[2021-07-12] MEDS: allopurinoL 300 MG TAB PO SCH (19:18)
[2021-07-12] MEDS: LORazepam 0.5 MG TAB PO SCH (19:18)
[2021-07-12] MEDS: FOLIC ACID 1 MG TAB PO SCH (19:18)
[2021-07-12] MEDS: LOSARTAN 25 MG TAB PO SCH (19:18)
[2021-07-12] MEDS: PRAVASTATIN SODIUM 20 MG TAB PO SCH (19:18)
[2021-07-12] MEDS: AMMONIUM LACTATE 12% LOTION 225 GM BTL TOPICAL SCH (19:19)
[2021-07-13] MEDS: SODIUM CHLORIDE 0.9% 1,000 ML IV SCH ×3 (00:36→22:15)
[2021-07-13] MEDS: ACETAMINOPHEN TAB 325 MG TAB PO PRN ×3 (04:33→19:02)
[2021-07-13] MEDS: PANTOPRAZOLE 40 MG TABLET PO SCH (05:56)
[2021-07-13] MEDS: FERROUS SULFATE 325 MG TAB PO SCH (08:19)
[2021-07-13] MEDS: ISOSORBIDE MONONITRATE ER 30 MG TAB.ER.24H PO SCH (08:19)
[2021-07-13] MEDS: MAGNESIUM OXIDE 400 MG TAB PO SCH ×2 (08:20→19:02)
[2021-07-13] MEDS: HEPARIN SODIUM,PORCINE/PF 5,000 UNIT/0.5 ML SYRINGE SQ SCH ×2 (08:20→19:01)
[2021-07-13] MEDS: DOCUSATE 100 MG CAP PO SCH (08:20)
[2021-07-13] MEDS: LORATADINE 10 MG TAB PO SCH (08:20)
[2021-07-13] MEDS: amLODIPine 5 MG TAB PO SCH (08:20)
[2021-07-13] MEDS: CALCIUM CARB-VIT D 500 MG-5 MCG TAB PO SCH ×2 (08:20→19:02)
[2021-07-13] MEDS: FAMOTIDINE 20 MG TAB PO SCH (08:20)
[2021-07-13] MEDS: PYRIDOXINE 50 MG TAB PO SCH (08:20)
[2021-07-13] MEDS: CYANOCOBALAMIN 500 MCG TAB PO SCH (08:20)
[2021-07-13] MEDS: METOPROLOL SUCCINATE (ER) 50 MG TAB.ER.24H PO SCH (08:20)
[2021-07-13] MEDS: PARoxetine 10 MG TAB PO SCH ×2 (08:21→16:25)
[2021-07-13] MEDS: FLUTICASONE 50MCG/SPRAY NASAL 16GM EA NOSTRIL SCH ×2 (08:21→19:01)
[2021-07-13 08:51] LABS: Basophils # (A) 0.03 X 10*3/uL (0.00-0.10); Basophils % (A) 0.4 %; Eosinophils # (A) 0.13 X 10*3/uL (0.04-0.35); Eosinophils % (A) 1.8 %; HCT 31.7 % (37.2-46.3); HGB 10.4 g/dL (12.0-15.0); Immature Grans, Automated 0.3 %; Lymphocytes # (A) 0.78 X 10*3/uL (0.90-5.00); Lymphocytes % (A) 10.7 %; MCH 30.5 pg (27.0-32.0); MCHC 32.8 g/dL (32.0-37.0); Mean Platelet Volume 10.4 fL (9.5-12.2); Monocytes # (A) 0.72 X 10*3/uL (0.20-1.00); Monocytes % (A) 9.9 %; NRBC Per 100 WBC 0 /100 WBCS (0.0-0.0); Neutrophils # (A) 5.62 X 10*3/uL (1.80-7.70); Neutrophils % (A) 76.9 %; Platelet Count 239 X 10*3/uL (140-440); RBC 3.41 X 10*6/uL (4.10-5.20); RDW 13.7 % (11.5-14.5)
[2021-07-13 08:59] LABS: African American GFR (CKD) 89.1 (60.0-200.0); Albumin 3.5 g/dL (3.8-4.9); Albumin/Globulin Ratio 1.64 (1.60-3.17); Anion Gap 10.1 mmol/L (10.00-18.00); BUN/Creat Ratio 11.83 Ratio (12.00-20.00); Calcium 8.1 mg/dL (8.7-10.3); Carbon Dioxide 23.8 mmol/L (20.0-27.5); Globulin 2.1 g/dL (1.6-3.3); Non-African American GFR(CKD) 76.9 (60.0-200.0); Potassium 3.7 mmol/L (3.5-5.5); Total Bilirubin 0.3 mg/dL (0.30-1.20); Total Protein 5.7 g/dL (6.2-8.2)
[2021-07-13] MEDS: CALCIUM CARBONATE 500 MG CHEWABLE PO PRN ×2 (09:24→16:25)
[2021-07-13] MEDS: FENOFIBRATE 160 MG TAB PO SCH (15:04)
[2021-07-13] MEDS ORDERED: MAG HYDROX/AL HYDROX/SIMETH 30 ML CUP PO PRN (17:55)
--- NOTE | 2021-07-13 18:02 | P.PN ---
Subjective Progress Note Date: 07/13/21 Principal diagnosis: Left lower extremity cellulitis and UTI Patient is a 75-year-old female [facility] resident who was brought to the hospital with sepsis in this patient did have fever and elevated white count to discharge have a positive UA and left lower extremity cellulitis On today's evaluation her that is 06/27/2021, the patient remains to be febrile, the patient mentioned not feeling very good today and is complaining of some heartburn asking for Maalox, no chest pain no nausea no vomiting no abdominal pain no diarrhea Objective - Vital Signs Vital signs: Vital Signs Temp 99.2 F 07/13/21 14:54 Pulse 78 07/13/21 14:54 Resp 18 07/13/21 14:54 BP 155/70 07/13/21 14:54 Pulse Ox 90 L 07/13/21 14:54 Intake & Output 07/12/21 07/13/21 07/13/21 18:59 06:59 18:59 Intake Total 1530 700 Output Total 600 Balance 1530 100 Intake: Intake, IV Titration 1530 100 Amount Sodium Chloride 0.9% 1, 1430 000 ml @ 130 mls/hr IV . Q7H42M [facility] Rx#:[id number] ceFAZolin 2 gm In Sodium 100 100 Chloride 0.9% 50 ml @ 100 mls/hr IVPB Q8HR [facility] Rx# :[id number] Oral 600 Output: Urine 600 Other: Voiding Method External Catheter - Exam GENERAL DESCRIPTION: An elderly female lying in bed in no distress RESPIRATORY SYSTEM: Unlabored breathing , decreased breath sounds at bases HEART: S1 S2 regular rate and rhythm , ABDOMEN: Soft , no tenderness EXTREMITIES: Left leg with 2+ edema feet and redness has improved - Labs CBC & Chem 7: 07/13/21 05:36 07/13/21 05:36 Labs: Abnormal Lab Results - Last 24 Hours (Table) 07/13/21 07/13/21 Range/Units 05:36 05:36 RBC 3.41 L (4.10-5.20) X 10*6/uL Hgb 10.4 L (12.0-15.0) g/dL Hct 31.7 L (37.2-46.3) % Lymphocytes # 0.78 L (0.90-5.00) X 10*3/uL BUN/Creatinine Ratio 11.83 L (12.00-20.00) Ratio Calcium 8.1 L (8.7-10.3) mg/dL Total Protein 5.7 L (6.2-8.2) g/dL Albumin 3.5 L (3.8-4.9) g/dL Microbiology - Last 24 Hours (Table) 07/10/21 22:27 Blood Culture - Preliminary Blood No Growth after 48 hours 07/11/21 17:00 Urine Culture - Preliminary Urine,Clean Catch Gram Neg Bacilli Assessment and Plan (1) Cellulitis Current Visit: Yes Status: Acute Code(s): L03.90 - CELLULITIS, UNSPECIFIED SNOMED Code(s): 606451024 Plan: 1patient is in the hospital with sepsis and has been to have fever elevated white count source likely left lower extremity cellulitis plus minus a component of UTI , likely from enteric gram negative in this patient during clinic respo nse to the initial antibiotic of Rocephin. 2patient seemed to have shown evidence of mild fluid overload we will Hep-Lock her IV fluid, RN to apply Michael wrap to the left lateral decubitus swelling down continue with the cefazolin and Maalox has been ordered may need gentle diuresis Time with Patient: Less than 30
[2021-07-13] MEDS: AMMONIUM LACTATE 12% LOTION 225 GM BTL TOPICAL SCH (19:01)
[2021-07-13] MEDS: LORazepam 0.5 MG TAB PO SCH (19:01)
[2021-07-13] MEDS: FOLIC ACID 1 MG TAB PO SCH (19:02)
[2021-07-13] MEDS: PRAVASTATIN SODIUM 20 MG TAB PO SCH (19:02)
[2021-07-13] MEDS: LOSARTAN 25 MG TAB PO SCH (19:02)
[2021-07-13] MEDS: allopurinoL 300 MG TAB PO SCH (19:02)
[2021-07-13] MEDS ORDERED: methylPREDNISolone SOD SUCCI 125 MG/2 ML VIAL IV STA (19:24)
[2021-07-13] MEDS: BUDESONIDE 0.5 MG/2 ML NEBU INHALATION SCH (19:27)
[2021-07-13] MEDS ORDERED: IPRATROPIUM-ALBUTEROL 3 ML NEB INHALATION SCH (19:30)
[2021-07-13] MEDS ORDERED: IPRATROPIUM-ALBUTEROL 3 ML NEB INHALATION PRN (20:38)
[2021-07-14] MEDS: ACETAMINOPHEN TAB 325 MG TAB PO PRN ×4 (01:22→22:12)
--- NOTE | 2021-07-14 03:09 | P.PN ---
Subjective Progress Note Date: 07/13/21 this is a 75-year-old female patient well-known to my services who presented with concerns of fever. Patient currently resides at [facility] on the [place] and was set per EMS.patient has extensive medical history includes right lower leg amputation, DVT, I disorder, GERD, hyperlipidemia, hypertension, osteoarthritis, pulmonary embolism, renal failure,right stump infection, acute blood loss anemia and frequent UTIs . Chest x-ray completed showing no acute cardiopulmonary disease. COVID-19 negative. Influenza negative. UA completed showing small amount of leukocyte Estrace. White blood cell elevated at 11.6. patient denies any nausea vomiting or abdominal discomfort. Patient denies any upper res piratory symptoms. Small amount of redness noted to left lower extremity. Patient has been started on IV Rocephin. Urine and blood cultures ordered. Infectious disease services have been consulted. 07/13/2021 The patient remains to be febrile, the patient mentioned not feeling very good today and is complaining of some heartburn asking for Maalox, no chest pain no nausea no vomiting no abdominal pain no diarrhea Objective - Vital Signs Vital signs: Vital Signs Temp 98.3 F 07/13/21 07:30 Pulse 80 07/13/21 07:30 Resp 18 07/13/21 07:30 BP 137/75 07/13/21 07:30 Pulse Ox 97 07/13/21 07:30 Intake & Output 07/12/21 07/13/21 07/13/21 18:59 06:59 18:59 Intake Total 1530 700 Output Total 600 Balance 1530 100 Intake: Intake, IV Titration 1530 100 Amount Sodium Chloride 0.9% 1, 1430 000 ml @ 130 mls/hr IV . Q7H42M [facility] Rx#:[id number] ceFAZolin 2 gm In Sodium 100 100 Chloride 0.9% 50 ml @ 100 mls/hr IVPB Q8HR [facility] Rx# :[id number] Oral 600 Output: Urine 600 - Exam GENERAL DESCRIPTION: An elderly female lying in bed in no distress RESPIRATORY SYSTEM: Unlabored breathing , decreased breath sounds at bases HEART: S1 S2 regular rate and rhythm , ABDOMEN: Soft , no tenderness EXTREMITIES: Left leg with 2+ edema feet and redness has improved - Labs CBC & Chem 7: 07/13/21 05:36 07/13/21 05:36 Labs: Abnormal Lab Results - Last 24 Hours (Table) 07/13/21 07/13/21 Range/Units 05:36 05:36 RBC 3.41 L (4.10-5.20) X 10*6/uL Hgb 10.4 L (12.0-15.0) g/dL Hct 31.7 L (37.2-46.3) % Lymphocytes # 0.78 L (0.90-5.00) X 10*3/uL BUN/Creatinine Ratio 11.83 L (12.00-20.00) Ratio Calcium 8.1 L (8.7-10.3) mg/dL Total Protein 5.7 L (6.2-8.2) g/dL Albumin 3.5 L (3.8-4.9) g/dL Microbiology - Last 24 Hours (Table) 07/10/21 22:27 Blood Culture - Preliminary Blood No Growth after 48 hours 07/11/21 17:00 Urine Culture - Preliminary Urine,Clean Catch Gram Neg Bacilli Assessment and Plan Assessment: 1patient is in the hospital with sepsis and has been to have fever elevated white count source likely left lower extremity cellulitis plus minus a component of UTI , likely from enteric gram negative in this patient during clinic response to the initial antibiotic of Rocephin. 2patient seemed to have shown evidence of mild fluid overload we will Hep-Lock her IV fluid, RN to apply Michael wrap to the left lateral decubitus swelling down continue with the cefazolin and Maalox has been ordered may need gentle diuresis
[2021-07-14] MEDS: FUROSEMIDE 20 MG TAB PO SCH (05:35)
[2021-07-14] MEDS: PANTOPRAZOLE 40 MG TABLET PO SCH (05:35)
[2021-07-14] MEDS: IPRATROPIUM-ALBUTEROL 3 ML NEB INHALATION SCH ×4 (08:10→19:13)
[2021-07-14] MEDS: BUDESONIDE 0.5 MG/2 ML NEBU INHALATION SCH (08:12)
[2021-07-14] MEDS: MAGNESIUM OXIDE 400 MG TAB PO SCH ×2 (10:25→21:43)
[2021-07-14] MEDS: HEPARIN SODIUM,PORCINE/PF 5,000 UNIT/0.5 ML SYRINGE SQ SCH ×2 (10:25→21:42)
[2021-07-14] MEDS: LORATADINE 10 MG TAB PO SCH (10:26)
[2021-07-14] MEDS: CYANOCOBALAMIN 500 MCG TAB PO SCH (10:26)
[2021-07-14] MEDS: PARoxetine 10 MG TAB PO SCH ×2 (10:26→16:39)
[2021-07-14] MEDS: METOPROLOL SUCCINATE (ER) 50 MG TAB.ER.24H PO SCH (10:26)
[2021-07-14] MEDS: DOCUSATE 100 MG CAP PO SCH (10:27)
[2021-07-14] MEDS: amLODIPine 5 MG TAB PO SCH (10:27)
[2021-07-14] MEDS: CALCIUM CARB-VIT D 500 MG-5 MCG TAB PO SCH ×2 (10:27→21:42)
[2021-07-14] MEDS: PYRIDOXINE 50 MG TAB PO SCH (10:27)
[2021-07-14] MEDS: FAMOTIDINE 20 MG TAB PO SCH (10:27)
[2021-07-14] MEDS: FLUTICASONE 50MCG/SPRAY NASAL 16GM EA NOSTRIL SCH ×2 (10:28→21:44)
[2021-07-14] MEDS: ISOSORBIDE MONONITRATE ER 30 MG TAB.ER.24H PO SCH (10:28)
[2021-07-14] MEDS: LORazepam 0.5 MG TAB PO SCH ×2 (11:48→21:43)
--- NOTE | 2021-07-14 11:52 | XR ---
EXAMINATION TYPE: XR chest 1V portable DATE OF EXAM: 07/14/2021 HISTORY: Shortness of breath. COMPARISON: 07/10/2021 TECHNIQUE: Single view of the chest is submitted. FINDINGS: Demonstrated are scattered senescent parenchymal change. There is no evidence for focal infiltrate. Right basilar linear atelectasis and/or parenchymal scar w ith elevation right hemidiaphragm. The heart is stable. Hilar and mediastinal structures are within normal limits. Degenerative changes are seen of the dorsal spine. IMPRESSION: 1. Chronic changes without evidence for acute pulmonary disease.
[2021-07-14] MEDS: FENOFIBRATE 160 MG TAB PO SCH (13:36)
--- NOTE | 2021-07-14 14:17 | PN ---
PROGRESS NOTE DATE OF SERVICE: 07/14/2021 This 75-year-old woman who was admitted with fever and cellulitis is being closely monitored. Patient was extremely short of breath yesterday; possibly CHF with fluid overload. The patient is on Lasix at this time. The patient is being closely monitored. Dr. Carr is following the patient. A chest x-ray also showed some atelectasis. Past medical history reviewed. REVIEW OF SYSTEMS: Fourteen-point review of systems negative except as mentioned earlier. CURRENT MEDICATIONS: Reviewed. They include Tylenol, Maalox, DuoNeb. Doses and the rest of the medications are reviewed. PHYSICAL EXAMINATION: Pulse 85, blood pressure 167/68, respiration 19. HEENT: Conjunctivae normal. NECK: No jugular venous distention. CARDIOVASCULAR: S1, S2 muffled. RESPIRATION: Breath sounds diminished at the bases. A few scattered rhonchi. ABDOMEN: Soft, obese. LEGS: Bilateral leg cellulitis. NERVOUS SYSTEM: Generally weak. LABS: Reviewed. WBC 7.2, hemoglobin 10.4. ASSESSMENT: 1. Acute urinary tract infection. 2. Shortness of breath; possibly fluid overload. 3. Atelectasis. 4. Obesity. RECOMMENDATIONS AND DISCUSSION: I recommend to continue current medications, continue with the monitoring, symptomatic treatment. Otherwise, PT/OT evaluation. Continue with the empiric antibiotics. Patient is on cefazolin. Closely follow with Infectious Disease. Add bronchodilators and Lasix also. Monitor creatinine closely. Repeat labs. Limit fluids to 1500 mL per 24 hours. Prognosis guarded. Further recommendations to follow. Add Pulmicort, also. MMODL / IJN: [id number] /
[2021-07-14] MEDS: CALCIUM CARBONATE 500 MG CHEWABLE PO PRN (16:55)
[2021-07-14] MEDS: BUDESONIDE 1 MG/2 ML NEBU INHALATION SCH (19:13)
--- NOTE | 2021-07-14 20:49 | P.PN ---
Subjective Progress Note Date: 07/14/21 Principal diagnosis: Left lower extremity cellulitis and UTI Patient is a 75-year-old female [facility] resident who was brought to the hospital with sepsis in this patient did have fever and elevated white count to discharge have a positive UA and left lower extremity cellulitis On today's evaluation her that is 07/14/2021, the patient denies any fever or any chills, the patient is breathing more comfortably today, denies having any chest pain and no worsening cough or production no abdominal pain, no diarrhea Objective - Vital Signs Vital signs: Vital Signs Temp 98.8 F 07/14/21 08:00 Pulse 85 07/14/21 08:13 Resp 19 07/14/21 08:00 BP 167/68 07/14/21 08:00 Pulse Ox 99 07/14/21 08:13 Intake & Output 07/13/21 07/14/21 07/14/21 18:59 06:59 18:59 Intake Total 1530 Output Total 950 400 Balance 580 -400 Intake: Intake, IV Titration 1530 Amount Sodium Chloride 0.9% 1, 1430 000 ml @ 130 mls/hr IV . Q7H42M [facility] Rx#:[id number] ceFAZolin 2 gm In Sodium 100 Chloride 0.9% 50 ml @ 100 mls/hr IVPB Q8HR [facility] Rx# :[id number] Output: Urine 950 400 Other: Voiding Method External Catheter External Catheter - Exam GENERAL DESCRIPTION: An elderly female lying in bed in no distress RESPIRATORY SYSTEM: Unlabored breathing , decreased breath sounds at bases HEART: S1 S2 regular rate and rhythm , ABDOMEN: Soft , no tenderness EXTREMITIES: Left leg with 2+ edema feet and redness has improved - Labs CBC & Chem 7: 07/13/21 05:36 07/13/21 05:36 Labs: Microbiology - Last 24 Hours (Table) 07/10/21 22:27 Blood Culture - Preliminary Blood No Growth after 72 hours 07/11/21 17:00 Urine Culture - Final Urine,Clean Catch Escherichia coli Assessment and Plan (1) Cellulitis Current Visit: Yes Status: Acute Code(s): L03.90 - CELLULITIS, UNSPECIFIED SNOMED Code(s): 984346440 Plan: 1patient is in the hospital with sepsis and has been to have fever elevated white count source likely left lower extremity cellulitis plus minus a component of UTI , likely from enteric gram negative in this patient during clinic response to the initial antibiotic of Rocephin. Patient to continue with ce fazolin 2 g every 8 hours to cover for both UTI and cellulitis 2patient seemed to have shown evidence of mild fluid overload IV fluids were hep-locked chest x-ray has been ordered and we'll follow the results
[2021-07-14] MEDS: allopurinoL 300 MG TAB PO SCH (21:42)
[2021-07-14] MEDS: FOLIC ACID 1 MG TAB PO SCH (21:42)
[2021-07-14] MEDS: PRAVASTATIN SODIUM 20 MG TAB PO SCH (21:43)
[2021-07-14] MEDS: AMMONIUM LACTATE 12% LOTION 225 GM BTL TOPICAL SCH (21:43)
[2021-07-14] MEDS: LOSARTAN 25 MG TAB PO SCH (21:43)
[2021-07-15] MEDS: ACETAMINOPHEN TAB 325 MG TAB PO PRN ×3 (04:06→17:02)
[2021-07-15] MEDS: PANTOPRAZOLE 40 MG TABLET PO SCH (05:28)
[2021-07-15] MEDS: HEPARIN SODIUM,PORCINE/PF 5,000 UNIT/0.5 ML SYRINGE SQ SCH ×2 (08:00→20:58)
[2021-07-15] MEDS: FUROSEMIDE 10 MG/ML 4 ML VIAL IV SCH (08:00)
[2021-07-15] MEDS: LORATADINE 10 MG TAB PO SCH (08:01)
[2021-07-15] MEDS: PARoxetine 10 MG TAB PO SCH ×2 (08:01→17:02)
[2021-07-15] MEDS: CYANOCOBALAMIN 500 MCG TAB PO SCH (08:01)
[2021-07-15] MEDS: CALCIUM CARB-VIT D 500 MG-5 MCG TAB PO SCH ×2 (08:01→20:58)
[2021-07-15] MEDS: DOCUSATE 100 MG CAP PO SCH (08:01)
[2021-07-15] MEDS: LORazepam 0.5 MG TAB PO SCH ×2 (08:01→20:58)
[2021-07-15] MEDS: ISOSORBIDE MONONITRATE ER 30 MG TAB.ER.24H PO SCH (08:01)
[2021-07-15] MEDS: MAGNESIUM OXIDE 400 MG TAB PO SCH ×2 (08:01→20:58)
[2021-07-15] MEDS: FAMOTIDINE 20 MG TAB PO SCH (08:01)
[2021-07-15] MEDS: METOPROLOL SUCCINATE (ER) 50 MG TAB.ER.24H PO SCH (08:01)
[2021-07-15] MEDS: FERROUS SULFATE 325 MG TAB PO SCH (08:01)
[2021-07-15] MEDS: FLUTICASONE 50MCG/SPRAY NASAL 16GM EA NOSTRIL SCH ×2 (08:02→20:58)
[2021-07-15] MEDS: PYRIDOXINE 50 MG TAB PO SCH (08:02)
[2021-07-15] MEDS: amLODIPine 5 MG TAB PO SCH (08:03)
[2021-07-15] MEDS: IPRATROPIUM-ALBUTEROL 3 ML NEB INHALATION SCH ×4 (09:25→19:24)
[2021-07-15] MEDS: BUDESONIDE 1 MG/2 ML NEBU INHALATION SCH ×2 (09:26→19:24)
--- NOTE | 2021-07-15 14:48 | CDI ---
Documentation Clarification Form Date: 07/15/2021 02:20:17 PM From: Jazz Gregory RN CCDS Admit Date: 07/11/2021 01:13:00 AM Patient Name: Maria Teresa Celeste Visit Number: [id number] Discharge Date: ATTENTION: The Clinical Documentation Specialists (CDI) and [facility] Coding Staff appreciate your assistance in clarifying documentation. Please respond to the clarification below the line at the bottom and electronically sign. The CDI & [facility] Coding staff will review the response and follow-up if needed. Please note: Queries are made part of the Legal Health Record. If you have any questions, please contact the author of this message via ITS. Dr. Gage Gastelum Sepsis is documented ID consult and ID progress notes, 07/11 07/14, but is not noted in subsequent documentation. Clarification is requested. History/Risk Factors:75-year-old female presents to the ED via EMS from [facility] for feeling terrible and not wanting to get out of bed. Medical History: DVT, OA, PE, Renal Disease, AKA, Stump infection and chronic osteomyelitis. ED,07/10. Clinical Indicators: VSS 07/10: B/P 158/78, HR 110, Temp 102.5 F Oral, RR 18, SpO2 98% room air. LABS 07/10: Wbc 11.6; Neutrophils 10.2, Cr 1.06 UA Culture 07/11: Escherichia coli ID Consult 07/11: patient is in the hospital with sepsis and has been to have fever elevated white count source likely left lower extremity cellulitis plus minus a component of UTI. Treatment: 07/11 07/15 Cefazolin 2gm IVPB Q8HR; 07/10 1,000mg Rocephin IVP x 1; 07/10 07/11 Rocephin 1,000mg IVP x 2 doses; 07/10 0.9NS 500cc IV bolus x 2 bags Please clarify if the Sepsis is: [ ] Sepsis confirmed, remains under treatment [ ] Sepsis confirmed, resolved [ ] Sepsis ruled out [ ] Other condition, please specify [ ] Unable to determine Documented 07/[address] Gusman / Antonio Villanueva CISTERN ROOM OPERATOR : Sepsis, present on admission, possibly secondary to acute urinary tract infection and left lower extremity cellulitis, remains under treatment with infectious disease following (Template Last Revised: May 2020) ZOIED
[2021-07-15] MEDS: FENOFIBRATE 160 MG TAB PO SCH (17:02)
[2021-07-15] MEDS: PRAVASTATIN SODIUM 20 MG TAB PO SCH (20:57)
[2021-07-15] MEDS: allopurinoL 300 MG TAB PO SCH (20:57)
[2021-07-15] MEDS: LOSARTAN 25 MG TAB PO SCH (20:58)
[2021-07-15] MEDS: AMMONIUM LACTATE 12% LOTION 225 GM BTL TOPICAL SCH (20:58)
[2021-07-15] MEDS: FOLIC ACID 1 MG TAB PO SCH (20:58)
--- NOTE | 2021-07-15 21:23 | P.PN ---
Subjective Progress Note Date: 07/15/21 Principal diagnosis: Left lower extremity cellulitis and UTI Patient is a 75-year-old female care home resident who was brought to the hospital with sepsis in this patient did have fever and elevated white count to discharge have a positive UA and left lower extremity cellulitis On today's evaluation her that is 07/15/2021, the patient remains to be afebrile, the patient is breathing comfortably on 2 L nasal cannula, the patient denies having any chest pain occasional cough production no abdominal pain no diarrhea Objective - Vital Signs Vital signs: Vital Signs Temp 98.5 F 07/15/21 08:00 Pulse 99 07/15/21 12:46 Resp 18 07/15/21 08:00 BP 161/81 07/15/21 08:00 Pulse Ox 96 07/15/21 09:28 Intake & Output 07/14/21 07/15/21 07/15/21 18:59 06:59 18:59 Output Total 800 Balance -800 Output: Urine 800 Other: Voiding Method External Catheter External Catheter - Exam GENERAL DESCRIPTION: An elderly female lying in bed in no distress RESPIRATORY SYSTEM: Unlabored breathing , decreased breath sounds at bases HEART: S1 S2 regular rate and rhythm , ABDOMEN: Soft , no tenderness EXTREMITIES: Left leg with 2+ edema feet and redness has improved - Labs CBC & Chem 7: 07/13/21 05:36 07/13/21 05:36 Labs: Microbiology - Last 24 Hours (Table) 07/10/21 22:27 Blood Culture - Preliminary Blood No Growth after 96 hours Assessment and Plan (1) Cellulitis Current Visit: Yes Status: Acute Code(s): L03.90 - CELLULITIS, UNSPECIFIED SNOMED Code(s): 535297986 Plan: 1patient is in the hospital with sepsis and has been to have fever elevated white count source likely left lower extremity cellulitis plus minus a component of UTI , likely from enteric gram negative in this patient during clinic response to the initial antibiotic of Rocephin. Patient to continue with cefazolin 2 g every 8 hours to cover for both UTI and cellulitis 2patient seemed to have shown clinical improvement and will be able to finish therapy with oral Keflex 7 days on discharge discussed with the nurse practitioner for admitting team Time with Patient: Less than 30
--- NOTE | 2021-07-15 21:46 | P.PN ---
Subjective Progress Note Date: 07/15/21 This is a pleasant 75-year-old female who was recently admitted with fever and cellulitis of the left lower extremity and being closely monitored. Sepsis workup in progress with infectious disease following closely and patient is maintained on IV Kefzol and will continue. Patient culture showing E. coli and will discuss with infectious disease about discharge planning and treatment plan moving forward. Patient with possible CHF and fluid overload as patient was receiving high-dose IV normal saline and underwent chest x-ray showing some atelectasis. Patient was given a dose of IV Lasix and maintained on IV Lasix twice a day and will repeat labs and continue to monitor closely. Patient with continued left lower extremity pain and discomfort and swelling an Michael wrap is noted on exam. Patient is a resident at [facility] case management and social work following as patient will be returning there on discharge. Patient is also short of breath requiring 2 L of oxygen and will continue IV Lasix and wean FiO2 as tolerated. Will continue to encourage incentive spirometer at least 10 times every hour while awake. Patient is currently afebrile denies any chest pain. Patient is tolerating diet although reports to poor oral intake she feels she does not have much of an appetite. Encouraged oral intake especially proteins. Review of systems: Constitutional: No reports of fatigue, fever, or chills Cardiovascular: No reports of chest pain or palpitations Respiratory: reports of some mild shortness of breath with a dry cough GI: No reports of nausea, no reports of of vomiting, Shawn's decreased appetite : No reports of dysuria or retention Neurovascular: reports of generalized weakness, reports left lower extremity pain All medications have been reviewed Active Medications Acetaminophen (Acetaminophen Tab 325 Mg Tab) 650 mg PO Q6HR PRN PRN Reason: Mild Pain or Fever > 100.5 Last Admin: 07/15/21 10:42 Dose: 650 mg Documented by: Al Hydroxide/Mg Hydroxide (Mag Hydrox/Al Hydrox/Simeth 30 Ml Cup) 30 ml PO Q4HR PRN PRN Reason: GI Upset Albuterol/Ipratropium (Ipratropium-Albuterol 3 Ml Neb) 3 ml INHALATION RT-QID JORGE Last Admin: 07/15/21 12:36 Dose: 3 ml Documented by: Albuterol/Ipratropium (Ipratropium-Albuterol 3 Ml Neb) 3 ml INHALATION RT-Q2H PRN PRN Reason: Shortness Of Breath Or Wheezing Last Admin: 07/15/21 03:50 Dose: 3 ml Documented by: Allopurinol (Allopurinol 300 Mg Tab) 300 mg PO HS@2100 [facility] Last Admin: 07/14/21 21:42 Dose: 300 mg Documented by: Amlodipine Besylate (Amlodipine 5 Mg Tab) 5 mg PO DAILY@0900 [facility] Last Admin: 07/15/21 08:03 Dose: 5 mg Documented by: Artificial Tears (Artificial Tears-Hypromellose Drops 15 Ml Btl) 1 drops BOTH EYES Q1H PRN PRN Reason: Dry Eye(s) Budesonide (Budesonide 1 Mg/2 Ml Nebu) 1 mg INHALATION RT-BID [facility] Last Admin: 07/15/21 09:26 Dose: 1 mg Documented by: Calcium Carbonate (Calcium Carb-Vit D 500 Mg-5 Mcg Tab) 1 each PO BID@0900,2100 [facility] Last Admin: 07/15/21 08:01 Dose: 1 each Documented by: Calcium Carbonate/Glycine (Calcium Carbonate 500 Mg Chewable) 1,000 mg PO Q6H PRN PRN Reason: UPSET STOMACH Last Admin: 07/14/21 16:55 Dose: 1,000 mg Documented by: Cyanocobalamin (Cyanocobalamin 500 Mcg Tab) 500 mcg PO DAILY@0900 [facility] Last Admin: 07/15/21 08:01 Dose: 500 mcg Documented by: Docusate Sodium (Docusate 100 Mg Cap) 100 mg PO DAILY [facility] Last Admin: 07/15/21 08:01 Dose: 100 mg Documented by: Famotidine (Famotidine 20 Mg Tab) 20 mg PO DAILY [facility] Last Admin: 07/15/21 08:01 Dose: 20 mg Documented by: Fenofibrate (Fenofibrate 160 Mg Tab) 160 mg PO DAILY@1400 [facility] Last Admin: 07/14/21 13:36 Dose: 160 mg Documented by: Ferrous Sulfate (Ferrous Sulfate 325 Mg Tab) 325 mg PO DAILY@0900 [facility] Last Admin: 07/15/21 08:01 Dose: 325 mg Documented by: Fluticasone Propionate (Fluticasone 50mcg/[place] Nasal 16gm) 1 spray EA NOSTRIL BID@0900,2100 [facility] Last Admin: 07/15/21 08:02 Dose: 1 spray Documented by: Folic Acid (Folic Acid 1 Mg Tab) 1 mg PO HS@2100 [facility] Last Admin: 07/14/21 21:42 Dose: 1 mg Documented by: Furosemide (Furosemide 10 Mg/Ml 4 Ml Vial) 40 mg IV DAILY [facility] Last Admin: 07/15/21 08:00 Dose: 40 mg Documented by: Heparin Sodium (Porcine) (Heparin Sodium,Porcine/Pf 5,000 Unit/0.5 Ml Syringe) 5,000 unit SQ Q12HR [facility] Last Admin: 07/15/21 08:00 Dose: 5,000 unit Documented by: Hydralazine HCl (Hydralazine Hcl 25 Mg Tab) 25 mg PO TID PRN PRN Reason: SBP>160 OR DIASTOLIC >90 Cefazolin Sodium 2 gm/ Sodium (Chloride) 50 mls @ 100 mls/hr IVPB Q8HR [facility]; Protocol Last Admin: 07/15/21 08:01 Dose: 100 mls/hr Documented by: Isosorbide Mononitrate (Isosorbide Mononitrate Er 30 Mg Tab.Er.24h) 30 mg PO DAILY@0900 [facility] Last Admin: 07/15/21 08:01 Dose: 30 mg Documented by: Lactic Acid (Ammonium Lactate 12% Lotion 225 Gm Btl) 1 applic TOPICAL [facility]; Protocol Last Admin: 07/14/21 21:43 Dose: Not Given Documented by: Loratadine (Loratadine 10 Mg Tab) 10 mg PO DAILY@0900 [facility] Last Admin: 07/15/21 08:01 Dose: 10 mg Documented by: Lorazepam (Lorazepam 0.5 Mg Tab) 0.5 mg PO BID [facility] Last Admin: 07/15/21 08:01 Dose: 0.5 mg Documented by: Losartan Potassium (Losartan 25 Mg Tab) 25 mg PO HS@2100 [facility] Last Admin: 07/14/21 21:43 Dose: 25 mg Documented by: Magnesium Oxide (Magnesium Oxide 400 Mg Tab) 400 mg PO BID@0900,2099 [facility] Last Admin: 07/15/21 08:01 Dose: 400 mg Documented by: Metoprolol Succinate (Metoprolol Succinate (Er) 50 Mg Tab.Er.24h) 50 mg PO DAILY@0900 [facility] Last Admin: 07/15/21 08:01 Dose: 50 mg Documented by: Naloxone HCl (Naloxone 0.4 Mg/Ml 1 Ml Vial) 0.2 mg IV Q2M PRN PRN Reason: Opioid Reversal Ondansetron HCl (Ondansetron 4 Mg/2 Ml Vial) 4 mg IVP Q8HR PRN PRN Reason: Nausea And Vomiting Last Admin: 07/12/21 12:10 Dose: 4 mg Documented by: Pantoprazole Sodium (Pantoprazole 40 Mg Tablet) 40 mg PO DAILY@0600 [facility] Last Admin: 07/15/21 05:28 Dose: 40 mg Documented by: Paroxetine HCl (Paroxetine 10 Mg Tab) 30 mg PO BID@0900,1700 [facility] Last Admin: 07/15/21 08:01 Dose: 30 mg Documented by: Pravastatin Sodium (Pravastatin Sodium 20 Mg Tab) 20 mg PO HS@2100 [facility] Last Admin: 07/14/21 21:43 Dose: 20 mg Documented by: Pyridoxine HCl (Pyridoxine 50 Mg Tab) 50 mg PO DAILY@0900 [facility] Last Admin: 07/15/21 08:02 Dose: 50 mg Documented by: PHYSICAL EXAMINATION: GENERAL: The patient is alert and oriented x3, Well developed, well nourished. Obese. HEENT: Pupils are round and equally reacting to light. EOMI. no scleral icterus. No conjunctival pallor. Normocephalic, atraumatic. No pharyngeal erythema. No thyromegaly. CARDIOVASCULAR: S1 and S2 muffled PULMONARY: diminished breath sounds bilaterally with some scattered rhonchi noted. ABDOMEN: soft. Nontender on exam. obese. non-distended, normoactive bowel sounds. No palpable organomegaly. MUSCULOSKELETAL: No joint swelling or deformity. EXTREMITIES: No cyanosis, clubbing, or pedal edema. Right AKA, left lower extremity swelling with Michael wrap noted, with extreme sensitivity on palpation NEUROLOGICAL: Gross neurological examination did not reveal any focal deficits. Diffuse weakness SKIN: No rashes. Assessment: Acute urinary tract infection, present on admission Shortness of breath, possibly fluid overload Atelectasis Obesity with a body mass index of 37.3 Sepsis, present on admission, possibly secondary to acute urinary tract infection and left lower extremity cellulitis, remains under treatment with infectious disease following Anxiety/depression GI prophylaxis DVT prophylaxis Full code Plan: Recommend to continue with current medications and symptomatic treatment. ID is following and patient is continued on IV Kefzol and urine cultures finalized showing E. coli with sensitivities and will continue on oral Keflex 500 mg 3 elsa es daily for the next 7 days to complete the course. Patient is also to continue with Michael wraps and local wound care to the lower left extremity and also to elevate lower left extremity while at rest. Patient having some increasing shortness of breath requiring 2 L of oxygen possibly secondary to fluid overload and was given a dose of IV Lasix and will continue with IV Lasix twice daily for the next 24 hours with repeat labs and possible discharge to ECF if patient remains stable. Incentive spirometer is ordered and encourage the patient to continue using at least 10 times every hour while awake. Wean FiO2 as tolerated. Case management also following this patient is a resident at [facility] and will be returning there when stable. Due to multiple complex medical issues, prognosis is guarded. Possible discharge in 24 hours. The impression and plan of care has been dictated by Nasima Villanueva, nurse practitioner as directed. MD Duong I have performed a history and examination and MDM of this patient, discussed the same with the dictator, and agree with the dictator's assessment and plan as written ,documented as a scribe. Based on total visit time, I have performed more than 50% of the visit. Any additional findings or plans will be noted. Objective - Vital Signs Vital signs: Vital Signs Temp 98.5 F 07/15/21 08:00 Pulse 99 07/15/21 12:46 Resp 18 07/15/21 08:00 BP 161/81 07/15/21 08:00 Pulse Ox 96 07/15/21 09:28 Intake & Output 07/14/21 07/15/21 07/15/21 18:59 06:59 18:59 Output Total 800 Balance -800 Output: Urine 800 Other: Voiding Method External Catheter External Catheter - Labs CBC & Chem 7: 07/13/21 05:36 07/13/21 05:36 Labs: Microbiology - Last 24 Hours (Table) 07/10/21 22:27 Blood Culture - Preliminary Blood No Growth after 96 hours
[2021-07-16] MEDS: ACETAMINOPHEN TAB 325 MG TAB PO PRN ×2 (00:10→08:22)
[2021-07-16 03:03] VITALS: RESP 18
[2021-07-16] MEDS: PANTOPRAZOLE 40 MG TABLET PO SCH (05:36)
[2021-07-16 07:11] VITALS: BP 131/75; TEMP 98.3
[2021-07-16] MEDS: LORazepam 0.5 MG TAB PO SCH (08:24)
[2021-07-16] MEDS: CYANOCOBALAMIN 500 MCG TAB PO SCH (08:24)
[2021-07-16] MEDS: CALCIUM CARB-VIT D 500 MG-5 MCG TAB PO SCH (08:24)
[2021-07-16] MEDS: ISOSORBIDE MONONITRATE ER 30 MG TAB.ER.24H PO SCH (08:24)
[2021-07-16] MEDS: DOCUSATE 100 MG CAP PO SCH (08:24)
[2021-07-16] MEDS: MAGNESIUM OXIDE 400 MG TAB PO SCH (08:24)
[2021-07-16] MEDS: LORATADINE 10 MG TAB PO SCH (08:24)
[2021-07-16] MEDS: FERROUS SULFATE 325 MG TAB PO SCH (08:24)
[2021-07-16] MEDS: METOPROLOL SUCCINATE (ER) 50 MG TAB.ER.24H PO SCH (08:24)
[2021-07-16] MEDS: FAMOTIDINE 20 MG TAB PO SCH (08:24)
[2021-07-16] MEDS: PYRIDOXINE 50 MG TAB PO SCH (08:24)
[2021-07-16] MEDS: amLODIPine 5 MG TAB PO SCH (08:24)
[2021-07-16] MEDS: HEPARIN SODIUM,PORCINE/PF 5,000 UNIT/0.5 ML SYRINGE SQ SCH (08:24)
[2021-07-16] MEDS: PARoxetine 10 MG TAB PO SCH (08:24)
[2021-07-16] MEDS: FUROSEMIDE 10 MG/ML 4 ML VIAL IV SCH (08:25)
[2021-07-16] MEDS: FLUTICASONE 50MCG/SPRAY NASAL 16GM EA NOSTRIL SCH (08:27)
[2021-07-16] MEDS: BUDESONIDE 1 MG/2 ML NEBU INHALATION SCH (08:55)
[2021-07-16] MEDS: IPRATROPIUM-ALBUTEROL 3 ML NEB INHALATION SCH ×2 (08:55→12:24)
[2021-07-16 09:11] VITALS: PULSE 102
[2021-07-16] MEDS: CALCIUM CARBONATE 500 MG CHEWABLE PO PRN (10:06)
--- NOTE | 2021-07-16 11:05 | P.DS ---
Providers Date of admission: 07/11/21 01:13 Attending physician: Gage Gastelum Consults: 07/11/21 09:52 Consult Physician Routine Consulting Provider: Paz Carr Consult Reason/Comments: cellulitis Do you want consulting provider notified?: Yes Primary care physician: Gage Gastelum [facility] Course: Final diagnosis Acute UTI present on admission Shortness of breath possibly fluid overload Atelectasis obesity Sepsis present on admission Lower extremity cellulitis Anxiety depression GI prophylaxis DVT prophylaxis full code This a disposition. The patient be discharged in a stable condition with a guarded prognosis to [facility]. Total time taken 35 minutes. History of present illness This 75-year-old woman with a past medical history multiple medical problems being followed by Dr. Gastelum in the outpatient setting was admitted to acute UTI. Dr. Carr saw the patient. Patient treated with IV antibiotics. Patient improved significantly. Patient also had an cellulitis. Patient also had fe atures of sepsis. Patient improved significantly. Lasix is given fluid overload. The patient be discharged in a stable condition with guarded prognosis to [facility] at this time. On exam vitals are stable. Cardio vascular system S1-S2 was normal respirator system clear to auscultation abdomen soft nontender legs mild cellulitis present See discharge medication reconciliation for medication list Plan - Discharge Summary Discharge Rx Participant: Yes New Discharge Prescriptions: New Docusate [Colace] 100 mg PO DAILY cap Ipratropium-Albuterol Nebulize [Duoneb 0.5 mg-3 mg/3 ml Soln] 3 ml INHALATION RT-QID ml Ipratropium-Albuterol Nebulize [Duoneb 0.5 mg-3 mg/3 ml Soln] 3 ml INHALATION RT-Q2H PRN ml PRN Reason: Shortness Of Breath Or Wheezing Mag Hydrox/Al Hydrox/Simeth [Maalox] 30 ml PO Q4HR PRN ml PRN Reason: Gi Upset Cephalexin [Keflex] 500 mg PO Q8HR 7 Days #21 cap Budesonide [Pulmicort] 1 mg INHALATION RT-BID ml Continue allopurinoL [Zyloprim] 300 mg PO HS@2100 Multivitamins, Thera [Multivitamin (formulary)] 1 tab PO HS@2100 Pravastatin Sodium [Pravachol] 20 mg PO HS@2100 Isosorbide Mononitrate ER [Imdur] 30 mg PO DAILY@0900 PARoxetine HCL [Paxil] 30 mg PO BID@0900,1700 Calcium Carbonate/Vitamin D3 [Calcium 600-Vit D3 10 mcg (400 Iu)] 1 tab PO BID@0900,2100 ondansetron HCL [Zofran] 4 mg PO Q6H PRN PRN Reason: Nausea And Vomiting Artificial Tears-Hypromellose [Artificial Tear Drops] 1 drop BOTH EYES Q1H PRN PRN Reason: Dry Eye(S) Cyanocobalamin [Vitamin B-12] 500 mcg PO DAILY@0900 Folic Acid 1 mg PO HS@2100 Loperamide [Imodium] 2 mg PO Q6H PRN PRN Reason: Diarrhea Magnesium Oxide 400 mg PO BID@0900,2100 Metoprolol Succinate (ER) [Toprol XL] 50 mg PO DAILY@0900 Pantoprazole Sodium [Protonix] 40 mg PO DAILY@0600 Ferrous Sulfate [Feosol] 325 mg PO DAILY@0900 Menthol [Biofreeze] 1 applic TOPICAL Q6H PRN PRN Reason: Pain Hydrocortisone Cream [Hydrocortisone 2.5% Cream] 1 applic TOPICAL DAILY PRN PRN Reason: FACE DERMATITIS FLARES Zguard 1 applic TOPICAL BID Ammonium Lactate Lotion [Lac-Hydrin 12% Lotion] 1 applic TOPICAL HS Calcium Carbonate [Tums] 1,000 mg PO Q6H PRN PRN Reason: UPSET STOMACH Acetaminophen Tab [Tylenol] 500 mg PO Q6HR PRN PRN Reason: Pain diphenhydrAMINE HCL [Benadryl] 25 mg PO BID PRN PRN Reason: Itching Fenofibrate Nanocrystallized [Tricor] 145 mg PO DAILY@1400 amLODIPine [Norvasc] 5 mg PO DAILY@0900 LORazepam [Ativan] 0.5 mg PO HS@2100 #3 tab Ketoconazole 2% Shampoo [Nizoral] 1 applic TOPICAL MOTH Acetaminophen Tab [Tylenol] 650 mg PO Q4H PRN PRN Reason: Fever guaiFENesin [guaiFENesin Oral Solution] 200 mg PO Q4H PRN PRN Reason: COUGH W/ NO ELEVATED TEMP Lidocaine Hcl Solution 1% 1 applic IM Q24H PRN PRN Reason: Pain Depo-Medrol Suspension 40mg/Ml 40 mg IM Q24HR PRN PRN Reason: Pain hydrALAZINE HCL 25 mg PO TID PRN PRN Reason: SBP>160 OR DIASTOLIC >90 Pyridoxine [Vitamin B-6] 50 mg PO DAILY@0900 Fluticasone Nasal [place] [Flonase Nasal [place]] 1 spray EA NOSTRIL BID@0900,2099 Denosumab [Prolia] 60 mg SQ Q180D Vit C/E/Zn/Coppr/Lutein/Zeaxan [Preservision Areds 2 Softgel] 2 cap PO DAILY@0900 Losartan [Cozaar] 25 mg PO HS@2099 Cetirizine HCl 10 mg PO DAILY@0900 Changed Furosemide [Lasix] 20 mg PO DAILY #7 Discontinued hydrALAZINE HCL 25 mg PO TID@0600,1400,2200 Discharge Medication List allopurinoL [Zyloprim] 300 mg PO HS@209908/21/14 [History] Multivitamins, Thera [Multivitamin (formulary)] 1 tab PO HS@209911/17/15 [History] Isosorbide Mononitrate ER [Imdur] 30 mg PO DAILY@0900 02/02/18 [History] Pravastatin Sodium [Pravachol] 20 mg PO HS@209902/02/18 [History] PARoxetine HCL [Paxil] 30 mg PO BID@0900,1700 03/27/18 [History] Calcium Carbonate/Vitamin D3 [Calcium 600-Vit D3 10 mcg (400 Iu)] 1 tab PO BID@0900,209903/18/19 [History] ondansetron HCL [Zofran] 4 mg PO Q6H PRN 03/18/19 [History] Artificial Tears-Hypromellose [Artificial Tear Drops] 1 drop BOTH EYES Q1H PRN 06/18/19 [History] Cyanocobalamin [Vitamin B-12] 500 mcg PO DAILY@0900 06/18/19 [History] Ferrous Sulfate [Feosol] 325 mg PO DAILY@0900 06/18/19 [History] Folic Acid 1 mg PO HS@209906/18/19 [History] Loperamide [Imodium] 2 mg PO Q6H PRN 06/18/19 [History] Magnesium Oxide 400 mg PO BID@0900,209906/18/19 [History] Metoprolol Succinate (ER) [Toprol XL] 50 mg PO DAILY@0900 06/18/19 [History] Pantoprazole Sodium [Protonix] 40 mg PO DAILY@0600 06/18/19 [History] Acetaminophen Tab [Tylenol] 500 mg PO Q6HR PRN 07/10/21 [History] Acetaminophen Tab [Tylenol] 650 mg PO Q4H PRN 07/10/21 [History] Ammonium Lactate Lotion [Lac-Hydrin 12% Lotion] 1 applic TOPICAL HS 07/10/21 [History] Calcium Carbonate [Tums] 1,000 mg PO Q6H PRN 07/10/21 [History] Cetirizine HCl 10 mg PO DAILY@0900 07/10/21 [History] Denosumab [Prolia] 60 mg SQ Q180D 07/10/21 [History] Depo-Medrol Suspension 40mg/Ml 40 mg IM Q24HR PRN 07/10/21 [History] Fenofibrate Nanocrystallized [Tricor] 145 mg PO DAILY@1400 07/10/21 [History] Fluticasone Nasal [place] [Flonase Nasal [place]] 1 spray EA NOSTRIL BID@0900,2100 07/10/21 [History] Hydrocortisone Cream [Hydrocortisone 2.5% Cream] 1 applic TOPICAL DAILY PRN 07/10/21 [History] Ketoconazole 2% Shampoo [Nizoral] 1 applic TOPICAL MOTH 07/10/21 [History] Lidocaine Hcl Solution 1% 1 applic IM Q24H PRN 07/10/21 [History] Losartan [Cozaar] 25 mg PO HS@209907/10/21 [History] Menthol [Biofreeze] 1 applic TOPICAL Q6H PRN 07/10/21 [History] Pyridoxine [Vitamin B-6] 50 mg PO DAILY@0900 07/10/21 [History] Vit C/E/Zn/Coppr/Lutein/Zeaxan [Preservision Areds 2 Softgel] 2 cap PO DAILY@0900 07/10/21 [History] Zguard 1 applic TOPICAL BID 07/10/21 [History] amLODIPine [Norvasc] 5 mg PO DAILY@0900 07/10/21 [History] diphenhydrAMINE HCL [Benadryl] 25 mg PO BID PRN 07/10/21 [History] guaiFENesin [guaiFENesin Oral Solution] 200 mg PO Q4H PRN 07/10/21 [History] hydrALAZINE HCL 25 mg PO TID PRN 07/10/21 [History] Budesonide [Pulmicort] 1 mg INHALATION RT-BID ml 07/15/21 [Rx] Cephalexin [Keflex] 500 mg PO Q8HR 7 Days #21 cap 07/15/21 [Rx] Docusate [Colace] 100 mg PO DAILY cap 07/15/21 [Rx] Furosemide [Lasix] 20 mg PO DAILY #7 07/15/21 [Rx] Ipratropium-Albuterol Nebulize [Duoneb 0.5 mg-3 mg/3 ml Soln] 3 ml INHALATION RT-Q2H PRN ml 07/15/21 [Rx] Ipratropium-Albuterol Nebulize [Duoneb 0.5 mg-3 mg/3 ml Soln] 3 ml INHALATION RT-QID ml 07/15/21 [Rx] LORazepam [Ativan] 0.5 mg PO HS@2100 #3 tab 07/15/21 [Rx] Mag Hydrox/Al Hydrox/Simeth [Maalox] 30 ml PO Q4HR PRN ml 07/15/21 [Rx] Follow up Appointment(s)/Referral(s): [facility], [NON-STAFF] - As Needed Gage Gastelum MD [Primary Care Provider] - 1-2 days Ambulatory/Diagnostic Orders: Complete Blood Count w/diff [LAB.AMB] Time Frame: 3 Days, Location: None Selected Patient Instructions/Handouts: Cellulitis (GEN) Activity/Diet/Wound Care/Special Instructions: will need to get ativan script for discharge from Dr. Gusman in am Patient is returning to [facility] Activity as tolerated Continue current diet heart healthy no milk products and dysphasia 2 ground diet Continue with ensure supplements twice a day with meals Patient is continue with Lasix 20 mg daily for 1 week and then resume every 48 hours thereafter Elevate left lower extremity and continue with Michael wrap from the toes up to the knees repeat cbc and bmp in 2-3 days Discharge Disposition: TRANSFER TO SNF/ECF
--- NOTE | 2021-07-16 11:36 | CDI ---
Documentation Clarification Form Date: 07/16/2021 11:03:29 AM From: Jazz Gregory RN CCDS Admit Date: 07/11/2021 01:13:00 AM Patient Name: Maria Teresa Celeste Visit Number: [id number] Discharge Date: ATTENTION: The Clinical Documentation Specialists (CDI) and [facility] Coding Staff appreciate your assistance in clarifying documentation. Please respond to the clarification below the line at the bottom and electronically sign. The CDI & [facility] Coding staff will review the response and follow-up if needed. Please note: Queries are made part of the Legal Health Record. If you have any questions, please contact the author of this message via ITS. Dr. Adry Gusman Your patient has the documented diagnosis of unspecified CHF 07/14, Medicine progress note. Additional information regarding the type, acuity of CHF is requested. History/Risk Factors:75-year-old female presents [facility] the ED [facility] for feeling terrible and not wanting to get out of bed. Medical History: DVT, OA, PE, Renal Disease, AKA, Stump infection and chronic osteomyelitis. ED,07/10. Clinical Indicators: VSS 07/10: B/P 158/78, HR 110, Temp 102.5 F Oral, RR 18, SpO2 98% room air. Echocardiogram Results: 01/08/2017 ef 55-60% Chest X Ray: 07/14 Right basilar linear atelectasis. Chronic changes. Medicine progress note, 07/14: Possibly CHF with fluid overload. Treatment: 07/12 07/14 Lasix 20mg PO Q48H; 07/15 current Lasix 40mg IV Daily; 07/11 current Imdur 30mg PO Daily; 07/11 current Toprol Xl 50mg PO Daily. In your professional opinion, can you please clarify the [acuity and type] of CHF if known? [ ] Acute Diastolic Heart Failure (preserved EF) [ ] Acute on Chronic Diastolic Heart Failure (preserved EF) [ ] Other, please specify [ ] Unable to determine (Template Last Revised: April 2020) Acute on Chronic Diastolic Heart Failure (preserved EF) MTDD
[2021-07-16] MEDS: FENOFIBRATE 160 MG TAB PO SCH (13:30)
== END 2021-07-16 14:49 | DRG 871 ==
LOC: EC 19:35 → 4SSUR 07-11 01:13
PROVIDERS: ADMIT Internal Medicine; ATTEND Internal Medicine
DX: A41.51 Sepsis due to Escherichia coli [E. coli] (principal); I50.33 Acute on chronic diastolic (congestive) heart failure; N39.0 Urinary tract infection, site not specified; L03.116 Cellulitis of left lower limb; Z20.822 Contact with and (suspected) exposure to COVID-19; E66.9 Obesity, unspecified; Z68.37 Body mass index [BMI] 37.0-37.9, adult; E78.5 Hyperlipidemia, unspecified; F41.8 Other specified anxiety disorders; H54.62 Unqualified visual loss, left eye, normal vision right eye; M19.90 Unspecified osteoarthritis, unspecified site; Z96.651 Presence of right artificial knee joint; Z86.711 Personal history of pulmonary embolism; Z86.718 Personal history of other venous thrombosis and embolism; Z89.611 Acquired absence of right leg above knee; Z79.899 Other long term (current) drug therapy; Z87.440 Personal history of urinary (tract) infections; Z90.710 Acquired absence of both cervix and uterus; Z98.51 Tubal ligation status; Z98.42 Cataract extraction status, left eye; Z98.41 Cataract extraction status, right eye; Z98.890 Other specified postprocedural states; Z80.8 Family history of malignant neoplasm of other organs or systems; Z82.3 Family history of stroke; Z82.49 Family history of ischemic heart disease and other diseases of the circulatory system; Z88.6 Allergy status to analgesic agent; Z88.1 Allergy status to other antibiotic agents; Z88.3 Allergy status to other anti-infective agents; Z91.048 Other nonmedicinal substance allergy status; I11.0 Hypertensive heart disease with heart failure
CPT/HCPCS: 36415; 71045; 71046; 80053; 81001; 83605; 85025; 85610; 85730; 87040; 87077; 87086; 87186; 87502; 87635; 93005; 94640; 94760; 96361; 96374; 96375; 99285

== ENCOUNTER → 2022-04-21 | Outpatient (CLI) | payer MEDICARE, OTHER ==
--- NOTE | 2022-04-21 12:02 | CT ---
EXAMINATION TYPE: CT abdomen pelvis wo con DATE OF EXAM: 04/21/2022 COMPARISON: 06/27/2019 HISTORY: Abdominal pain CT DLP: 1405.70 mGycm Examination of the solid and hollow viscera is limited given the lack of contrast. FINDINGS: LUNG BASES: No evidence for nodule. No evidence for infiltrate. LIVER/GB: The gallbladder is surgically absent. No space-occupying hepatic lesion. PANCREAS: No pancreatic mass identified. No inflammatory process seen. SPLEEN: No evidence for splenomegaly. No intrasplenic lesions seen. ADRENALS: No adrenal nodules identified. No evidence for thickening. KIDNEYS: No evidence for renal mass. No nephrolithiasis. No hydronephrosis. Mild atrophic changes of the kidneys. BOWEL: Appendix has a normal appearance. No evidence of bowel obstruction. No inflammatory process. Lymph nodes: No evidence for adenopathy greater than 1 cm. Abdominal aorta: Atheromatous changes seen. No evidence for aneurysm. Genital organs: Uterus is surgically absent. Other: IVC filter is in place. Severe lower lumbar degenerative disc disease. IMPRESSION: 1. No evidence for acute intra-abdominal process.
== END | disposition home or self-care (01) ==
LOC: RADCTMAIN 09:38
PROVIDERS: ATTEND Internal Medicine
DX: R10.0 Acute abdomen (principal)
CPT/HCPCS: 74176

== ENCOUNTER → 2022-08-21 | Outpatient (CLI) | payer MEDICARE, OTHER ==
--- NOTE | 2022-08-25 08:30 | MM ---
Reason for Exam: Screening (asymptomatic). Last mammogram was performed 1 year(s) and 10 month(s) ago. Patient History: Menarche at age 11. First Full-Term at age 23. Hysterectomy at age 42. Postmenopausal. Estrogen for 10 years from age 43 until age 53. Progesterone for 10 years from age 43 until age 53. 01/26/2011, Cancelled Right Mammotome on the right side. Risk Values: Liliana 5 year model risk: 1.7%. NCI Lifetime model risk: 3.5%. Prior Study Comparison: 02/24/2017 Bilateral Screening Mammogram, [facility]. 09/28/2018 Bilateral Screening Mammogram, [facility]. 10/08/2020 Bilateral Screening Mammogram, [facility]. Tissue Density: The breast tissue is heterogeneously dense. This may lower the sensitivity of mammography. Findings: Analyzed By CAD. Increased asymmetric density upper central left breast zone B. Additional views recommended. Benign calcifications present bilaterally are stable. Overall Assessment: Incomplete: need additional imaging evaluation, BI-RAD 0 Management: Diagnostic Mammogram of the left breast. . Patient should continue monthly self-breast exams. A clinical breast exam by your physician is recommended on an annual basis. This exam should not preclude additional follow-up of suspicious palpable abnormalities. Note on Liliana scores and lifetime risk: 1. A Liliana score greater than 3% is considered moderate risk. If this is the case, consider specialist referral to assess eligibility for a risk reducing agent. 2. If overall lifetime risk for the development of breast cancer is 20% or higher, the patient may qualify for future screening with alternating mammogram and breast MRI. Electronically signed and approved by: Guero Kennedy M.D. Radiologis
== END | disposition home or self-care (01) ==
LOC: RADMAMWWP 11:39
PROVIDERS: ATTEND Internal Medicine
DX: Z12.31 Encounter for screening mammogram for malignant neoplasm of breast (principal); Z78.0 Asymptomatic menopausal state
CPT/HCPCS: 77063; 77067

== ENCOUNTER → 2022-09-01 | Outpatient (CLI) | payer MEDICARE, OTHER ==
--- NOTE | 2022-09-01 11:01 | MM ---
Reason for Exam: Additional evaluation requested from abnormal screening. Last screening mammogram was performed less than 1 month ago. Patient History: Menarche at age 11. First Full-Term at age 23. Hysterectomy at age 42. Postmenopausal. Estrogen for 10 years from age 43 until age 53. Progesterone for 10 years from age 43 until age 53. 01/26/2011, Cancelled Right Mammotome on the right side. Risk Values: Liliana 5 year model risk: 1.7%. NCI Lifetime model risk: 3.3%. Prior Study Comparison: 09/28/2018 Bilateral Screening Mammogram, [facility]. 10/08/2020 Bilateral Screening Mammogram, [facility]. 08/21/2022 Bilateral MG 3D screening mammo w/cad, [facility]. Tissue Density: Left: The breast tissue is heterogeneously dense. This may lower the sensitivity of mammography. Findings: Analyzed By CAD. While in a upper inner quadrant focal asymmetry becomes less defined on additional views and no discrete mass is seen, the overall degree of density is still more than older priors. Further ultrasound evaluation is recommended. Overall Assessment: Incomplete: need additional imaging evaluation, BI-RAD 0 Management: Diagnostic Breast Ultrasound of the left breast. Electronically signed and approved by: Brett Ryan M.D. Radiologist
--- NOTE | 2022-09-01 11:23 | USB ---
Reason for Exam: Additional evaluation requested from abnormal screening. Patient History: Menarche at age 11. First Full-Term at age 23. Hysterectomy at age 42. Postmenopausal. Estrogen for 10 years from age 43 until age 53. Progesterone for 10 years from age 43 until age 53. 01/26/2011, Cancelled Right Mammotome on the right side. Risk Values: Liliana 5 year model risk: 1.7%. NCI Lifetime model risk: 3.3%. Technique: Method: Targeted. Patient Position: Seated. Prior Study Comparison: 09/28/2018 Bilateral Screening Mammogram, [facility]. 10/08/2020 Bilateral Screening Mammogram, [facility]. 08/21/2022 Bilateral MG 3D screening mammo w/cad, [facility]. Findings: The upper section of the breast of the left breast was scanned. Targeted ultrasound superior aspect of the left breast from 10:00 to 2:00. Some dense tissue is noted at 12:00. Otherwise, no solid or cystic lesion. Overall Assessment: Probably benign, BI-RAD 3 Management: Diagnostic Mammogram of the left breast in 6 months. A clinical breast exam by your physician is recommended on an annual basis and results should be correlated with mammographic findings. This exam should not preclude additional follow-up of suspicious palpable abnormalities. Results were given to the patient verbally at the time of exam. Electronically signed and approved by: Brett Ryan M.D. Radiologist
== END | disposition home or self-care (01) ==
LOC: RADMAMWWP 10:05
PROVIDERS: ATTEND Internal Medicine
DX: R92.8 Other abnormal and inconclusive findings on diagnostic imaging of breast (principal); R92.2 Inconclusive mammogram; Z78.0 Asymptomatic menopausal state
CPT/HCPCS: 77061; 77065

== ENCOUNTER 2024-03-16 21:46 | Inpatient (IN) | payer MEDICARE, OTHER ==
[2024-03-16 22:31] LABS: Basophils % (A) 0 %; Eosinophils # (A) 0.1 k/uL (0-0.7); Eosinophils % (A) 1 %; HCT 42.8 % (34.0-46.0); HGB 14.1 gm/dL (11.4-16.0); Lymphocytes # (A) 1.4 k/uL (1.0-4.8); Lymphocytes % (A) 9 %; MCH 31.6 pg (25.0-35.0); MCV 95.5 fL (80.0-100.0); Mean Platelet Volume 7.6; Monocytes # (A) 0.5 k/uL (0-1.0); Monocytes % (A) 3 %; Neutrophils # (A) 12.8 k/uL (1.3-7.7); Neutrophils % (A) 86 %; Platelet Count 301 k/uL (150-450); RBC 4.48 m/uL (3.80-5.40); RDW 13.2 % (11.5-15.5); WBC 14.9 k/uL (3.8-10.6)
[2024-03-16 22:35] LABS: ALT 21 U/L (4-34); AST 48 U/L (14-36); African American GFR (CKD) 73 (>60 ml/min/1.73 sqM); Albumin 4.2 g/dL (3.5-5.0); Alkaline Phosphatase 112 U/L (38-126); Amylase 71 U/L (30-110); Anion Gap 5 mmol/L; Blood Urea Nitrogen 23 mg/dL (7-17); Calcium 9.7 mg/dL (8.4-10.2); Carbon Dioxide 27 mmol/L (22-30); Chloride 104 mmol/L (98-107); Glucose 113 mg/dL (74-99); Lipase 137 U/L (23-300); Non-African American GFR(CKD) 64 (>60 ml/min/1.73 sqM); Potassium 4.6 mmol/L (3.5-5.1); Sodium 136 mmol/L (137-145); Total Bilirubin 0.7 mg/dL (0.2-1.3)
[2024-03-16] MEDS: SODIUM CHLORIDE 0.9% 1,000 ML IV STA (22:37)
--- NOTE | 2024-03-16 22:47 | ED ---
General Adult HPI - General Chief complaint: Abdominal Pain Stated complaint: Abdominal Pain Time Seen by Provider: 03/16/24 22:04 Source: patient, EMS Mode of arrival: EMS Limitations: no limitations - History of Present Illness Initial comments: Maria Teresa is a 78yo male who presents the emergency department today with complaint of a few hours of left lower quadrant abdominal pain with associated nausea and 1 episode of vomiting. Patient reports normal bowel movement earlier in the day no blood no diarrhea. Patient does have a history of known stones in her kidney though she is never experienced pain from passing a kidney stone in the past. Significant GI pathology. Cannot recall when her last colonoscopy was. - Related Data Home Medications Medication Instructions Recorded Confirmed allopurinoL [Zyloprim] 300 mg PO HS@209908/21/14 11/21/22 Multivitamins, Thera [Multivitamin 1 tab PO DAILY@0900 11/17/15 11/21/22 (formulary)] Pravastatin Sodium [Pravachol] 20 mg PO HS@209902/02/18 11/21/22 PARoxetine HCL [Paxil] 30 mg PO BID@0900,209903/27/18 11/21/22 Calcium Carbonate/Vitamin D3 1 tab PO BID@0900,209903/18/19 11/21/22 [Calcium 600-Vit D3 10 mcg (400 Iu)] ondansetron HCL [Zofran] 4 mg PO Q6H PRN 03/18/19 11/21/22 Cyanocobalamin [Vitamin B-12] 500 mcg PO DAILY@0900 06/18/19 11/21/22 Ferrous Sulfate [Feosol] 325 mg PO DAILY@1400 06/18/19 11/21/22 Folic Acid 1 mg PO HS@2100 06/18/19 11/21/22 Magnesium Oxide 400 mg PO BID@0900,2100 06/18/19 11/21/22 Pantoprazole Sodium [Protonix] 40 mg PO DAILY@0600 06/18/19 11/21/22 Acetaminophen Tab [Tylenol] 500 mg PO Q6HR PRN 07/10/21 11/21/22 Acetaminophen Tab [Tylenol] 650 mg PO Q4H PRN 07/10/21 11/21/22 Calcium Carbonate [Tums] 1,000 mg PO Q6H PRN 07/10/21 11/21/22 Cetirizine HCl 10 mg PO HS@209907/10/21 11/21/22 Denosumab [Prolia] 60 mg SQ Q180D 07/10/21 11/21/22 Fenofibrate Nanocrystallized 145 mg PO HS@209907/10/21 11/21/22 [Tricor] Fluticasone Nasal Babb [Flonase 1 spray EA NOSTRIL BID@0900,209907/10/21 11/21/22 Nasal Babb] Pyridoxine [Vitamin B-6] 50 mg PO DAILY@0900 07/10/21 11/21/22 Vit C/E/Zn/Coppr/Lutein/Zeaxan 1 cap PO BID@00,209907/10/21 11/21/22 [Preservision Areds 2 Softgel] diphenhydrAMINE HCL [Benadryl] 25 mg PO Q6H PRN 07/10/21 11/21/22 Docusate [Colace] 100 mg PO HS@209911/21/22 11/21/22 Fluticasone Propionate 110 Mcg 1 puff INHALATION RT-BID@0900,209911/21/22 11/21/22 [Flovent 110 Mcg Inhaler] Furosemide [Lasix] 20 mg PO Q48H 11/21/22 11/21/22 Ipratropium/Albuter 20-100Mcg 2 puff INHALATION RT-QID PRN 11/21/22 11/21/22 [Combivent Respimat 20-100Mcg Inhaler] Mupirocin 2% Oint [Bactroban 2% 1 applic TOPICAL HS@209911/21/22 11/21/22 Oint] Triamcinolone 0.1% Cream [Kenalog 1 applicatio TOPICAL BID@0900,1700 11/21/22 11/21/22 0.1% Cream] Triamcinolone 0.1% Cream [Kenalog 1 applicatio TOPICAL Q48H PRN 11/21/22 11/21/22 0.1% Cream] Previous Rx's Medication Instructions Recorded Apixaban [Eliquis] 5 mg PO BID #0 tab 11/27/22 Artificial Tears-Hypromellose 1 drops BOTH EYES QID PRN ml 11/27/22 [Artificial Tear Drops] LORazepam [Ativan] 0.5 mg PO HS@2100 #3 tab 11/27/22 LORazepam [Ativan] 0.5 mg PO HS@2100 3 Days #3 tab 11/27/22 Metoprolol Tartrate [Lopressor] 12.5 mg PO BID tab 11/27/22 predniSONE [Deltasone] 20 mg PO DAILY tab 11/27/22 Allergies Allergy/AdvReac Type Severity Reaction Status Date / Time adhesive Allergy Rash/Hives Verified 11/21/22 14:27 carbamazepine [From Tegretol] Allergy Rash/Hives Verified 11/21/22 14:27 carisoprodol [From Soma] Allergy lowers b/p Verified 11/21/22 14:27 quickly & passes out corn Allergy Diarrhea Verified 11/21/22 14:27 doxycycline calcium Allergy Rash/Hives Verified 11/21/22 14:27 [From Vibramycin] doxycycline hyclate Allergy Rash/Hives,vomited Verified 11/21/22 14:27 [From Vibramycin] blood doxycycline monohydrate Allergy Rash/Hives,vomited Verified 11/21/22 14:27 [From Vibramycin] blood erythromycin base Allergy Rash/Hives,vomited Verified 11/21/22 14:27 [From E-Mycin] blood hydrocodone bitartrate Allergy abdominal Verified 11/21/22 14:27 [From Vicodin] pain, diarrhea NSAIDS (Non-Steroidal Allergy Swelling Verified 11/21/22 14:27 Anti-Inflamma piroxicam [From Feldene] Allergy Swelling Verified 11/21/22 14:27 ceftriaxone [From Rocephin] AdvReac Rash/Hives Verified 11/21/22 14:27 ciprofloxacin [From Cipro] AdvReac Nausea & Verified 11/21/22 14:27 Vomiting wheat AdvReac Diarrhea Verified 11/21/22 14:27 Review of Systems ROS Statement: Those systems with pertinent positive or pertinent negative responses have been documented in the HPI. ROS Other: All systems not noted in ROS Statement are negative. 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 History of Any Multi-Drug Resistant Organisms: ESBL, VRE Date of last positivie culture/infection: 03/10/24-ESBL; 08/2013-VRE MDRO Source:: ESBL-urine; VRE-rt foot Past Surgical History: Hysterectomy, Joint Replacement, Orthopedic Surgery, Tubal Ligation Additional Past Surgical History / Comment(s): Sternocleidomastoidectomy (right) , right shoulder rotator cuff, rectocele/cystocele, right foot - Varma's neuroma/hammer toe, left outer forearm arthroscopy and shortening left ulna - plates and screws inserted, right wrist bundle of nerves , right knee arthroscopy/realignment of tendon/tibia/kneecap, R femur rods, R tibia with screws, 07-20-13 right knee replacement/removal and antibiotic spacer placed, 08-10-13 large hematoma removed, BL vitrectomies, BL cataract surgery, right right femur benign tumor removed, left foot bone spur, EGD, colonoscopies,. Right AKA done on Feb 13 per Pt of this year. Past Anesthesia/Blood Transfusion Reactions: Postoperative Nausea & Vomiting (PONV) Additional Past Anesthesia/Blood Transfusion Reaction / Comment(s): no complications with prior blood transfusion Past Psychological History: Anxiety, Depression Smoking Status: Never smoker Past Alcohol Use History: None Reported Past Drug Use History: None Reported - Past Family History Brother(s) Family Medical History: Cancer, Congestive Heart Failure (CHF) Additional Family Medical History / Comment(s): Heart problems, CABG, oral CA, pacemaker/defib. Father Family Medical History: Congestive Heart Failure (CHF), Hyperlipidemia, Hypertension, Myocardial Infarction (LA) Additional Family Medical History / Comment(s): at 97 years old. Mother Family Medical History: Congestive Heart Failure (CHF), CVA/TIA Additional Family Medical History / Comment(s): Pacemaker - January 16 at age 94 a few days after CVA. General Exam - General Exam Comments Initial Comments: Physical Exam GENERAL: Patient is well-developed and well-nourished. Patient is nontoxic and well-hydrated and is in no distress. HENT: Normocephalic, Atraumatic. EYES: PERRL, EOMI PULMONARY: Unlabored respirations. CARDIOVASCULAR: RRR Warm and well perfused extremities ABDOMEN: Non-distended SKIN: No rashes or bruising : Deferred NEUROLOGIC: Alert and oriented Normal speech MUSCULOSKELETAL: Moving all extremities with no apparent injury PSYCHIATRIC: No SI/HI Limitations: no limitations Course Vital Signs 03/16/24 03/17/24 03/17/24 21:48 00:15 02:36 Temperature 97.9 F Pulse Rate 97 103 H 81 Respiratory 18 18 18 Rate Blood Pressure 153/97 166/86 156/84 O2 Sat by Pulse 94 L 95 95 Oximetry 03/17/24 03/17/24 03/17/24 03:27 05:02 05:25 Temperature 97.6 F Pulse Rate 92 135 H Respiratory 16 18 22 Rate Blood Pressure 150/85 184/97 179/87 O2 Sat by Pulse 97 96 94 L Oximetry 03/17/24 03/17/24 05:49 06:23 Temperature 97.9 F Pulse Rate 138 H 129 H Respiratory 22 21 Rate Blood Pressure 175/84 176/87 O2 Sat by Pulse 96 96 Oximetry EKG Findings - EKG Comments: EKG Findings:: EKG interpreted by id EKG obtained due to tachycardia EKG obtained at 5:44 AM rate is 137 rhythm is narrow complex regular tachycardia consistent with a sinus tach. No acute ST elevations minimal depressions noted likely rate related. No evidence of acute infarction. Medical Decision Making - Medical Decision Making Was pt. sent in by a medical professional or institution (, PA, PUNCHBOARD ASSEMBLER, urgent care, hospital, or senior care...) When possible be specific @ -No Did you speak to anyone other than the patient for history (EMS, parent, family, police, friend...)? What history was obtained from this source @ -No Did you review nursing and triage notes (agree or disagree)? Why? @ -I reviewed and agree with nursing and triage notes Were old charts reviewed (outside hosp., previous admission, EMS record, old EKG, old radiological studies, urgent care reports/EKG's, senior care records)? Report findings @ -No old charts were reviewed Differential Diagnosis (chest pain, altered mental status, abdominal pain women, abdominal pain men, vaginal bleeding, weakness, fever, dyspnea, syncope, headache, dizziness, GI bleed, back pain, seizure, CVA, palpatations, mental health)? @ -Not applicable EKG interpreted by me (3pts min.). @ -As above X-rays interpreted by me (1pt min.). @ -None done CT interpreted by me (1pt min.). @ -Hydronephrosis on left U/S interpreted by me (1pt. min.). @ -None done What testing was considered but not performed or refused? (CT, X-rays, U/S, labs)? Why? @ -None What meds were considered but not given or refused? Why? @ -None Did you discuss the management of the patient with other professionals (pr ofessionals i.e. , PA, PUNCHBOARD ASSEMBLER, lab, RT, psych nurse, psych social worker, commercial litigation associate, teacher, chief science officer, casework specialist)? Give summary @ -No Was smoking cessation discussed for >3mins.? @ -No Was critical care preformed (if so, how long)? @ -No Were there social determinants of health that impacted care today? How? (Homelessness, low income, unemployed, alcoholism, drug addiction, transportation, low edu. Level, literacy, decrease access to med. care, skilled nursing, rehab)? @ -No Was there de-escalation of care discussed even if they declined (Discuss DNR or withdrawal of care, Hospice)? DNR status @ -No What co-morbidities impacted this encounter? (DM, HTN, Smoking, COPD, CAD, Cancer, CVA, ARF, Chemo, Hep., AIDS, mental health diagnosis, sleep apnea, morbid obesity)? @ -None Was patient admitted / discharged? Hospital course, mention meds given and route, prescriptions, significant lab abnormalities, going to OR and other pertinent info. @ -Admit Patient was seen, labs and CT obtained, labs with leukocytosis and COLE, UA with evidence of infection - due to patient allergies, Gentamicin ordered. Received multiple doses of pain medication due to the pain in the left lower quadrant. CT with evidence of hydronephrosis. Clinically I have concern for pyelonephritis and will plan to admit for IV antibiotics and monitoring. Developed some tachycardia she was sleeping pain was well-controlled I suspect this is related to infection. IV fluids and IV Tylenol were ordered. Patient to be admitted to Dr. Rhodes are her primary care provider. Undiagnosed new problem with uncertain prognosis? @ -No Drug Therapy requiring intensive monitoring for toxicity (Heparin, Nitro, Insulin, Cardizem)? @ -No Were any procedures done? @ -No Diagnosis/symptom? @ -Pyelonephritis, sepsis Acute, or Chronic, or Acute on Chronic? @ -Acute Uncomplicated (without systemic symptoms) or Complicated (systemic symptoms)? @ -Default Side effects of treatment? @ -No Exacerbation, Progression, or Severe Exacerbation? @ -No Poses a threat to life or bodily function? How? (Chest pain, USA, LA, pneumonia, PE, COPD, DKA, ARF, appy, cholecystitis, CVA, Diverticulitis, Homicidal, Suicidal, threat to staff... and all critical care pts) @ -No - Lab Data Result diagrams: 03/16/24 21:54 03/16/24 21:54 Lab Results 03/16/24 03/16/24 03/16/24 Range/Units 21:54 21:54 21:54 WBC 14.9 H (3.8-10.6) k/uL RBC 4.48 (3.80-5.40) m/uL Hgb 14.1 (11.4-16.0) gm/dL Hct 42.8 (34.0-46.0) % MCV 95.5 (80.0-100.0) fL MCH 31.6 (25.0-35.0) pg MCHC 33.0 (31.0-37.0) g/dL RDW 13.2 (11.5-15.5) % Plt Count 301 (150-450) k/uL MPV 7.6 Neutrophils % 86 % Lymphocytes % 9 % Monocytes % 3 % Eosinophils % 1 % Basophils % 0 % Neutrophils # 12.8 H (1.3-7.7) k/uL Lymphocytes # 1.4 (1.0-4.8) k/uL Monocytes # 0.5 (0-1.0) k/uL Eosinophils # 0.1 (0-0.7) k/uL Basophils # 0.0 (0-0.2) k/uL Sodium 136 L (137-145) mmol/L Potassium 4.6 (3.5-5.1) mmol/L Chloride 104 (98-107) mmol/L Carbon Dioxide 27 (22-30) mmol/L Anion Gap 5 mmol/L BUN 23 H (7-17) mg/dL Creatinine 0.88 (0.52-1.04) mg/dL Est GFR (CKD-EPI)AfAm 73 (>60 ml/min/1.73 sqM) Est GFR (CKD-EPI)NonAf 64 (>60 ml/min/1.73 sqM) Glucose 113 H (74-99) mg/dL Plasma Lactic Acid Ananth 1.5 (0.7-2.0) mmol/L Calcium 9.7 (8.4-10.2) mg/dL Total Bilirubin 0.7 (0.2-1.3) mg/dL AST 48 H (14-36) U/L ALT 21 (4-34) U/L Alkaline Phosphatase 112 (38-126) U/L Total Protein 7.0 (6.3-8.2) g/dL Albumin 4.2 (3.5-5.0) g/dL Amylase 71 (30-110) U/L Lipase 137 (23-300) U/L Urine Color Urine Appearance (Clear) Urine pH (5.0-8.0) Ur Specific [place] (1.001-1.035) Urine Protein (Negative) Urine Glucose (UA) (Negative) Urine Ketones (Negative) Urine Blood (Negative) Urine Nitrite (Negative) Urine Bilirubin (Negative) Urine Urobilinogen (<2.0) mg/dL Ur Leukocyte Esterase (Negative) Urine RBC (0-5) /hpf Urine WBC (0-5) /hpf Urine WBC Clumps (None) /hpf Ur Squamous Epith Cells (0-4) /hpf Urine Bacteria (None) /hpf Urine Mucus (None) /hpf 03/17/24 Range/Units 00:15 WBC (3.8-10.6) k/uL RBC (3.80-5.40) m/uL Hgb (11.4-16.0) gm/dL Hct (34.0-46.0) % MCV (80.0-100.0) fL MCH (25.0-35.0) pg MCHC (31.0-37.0) g/dL RDW (11.5-15.5) % Plt Count (150-450) k/uL MPV Neutrophils % % Lymphocytes % % Monocytes % % Eosinophils % % Basophils % % Neutrophils # (1.3-7.7) k/uL Lymphocytes # (1.0-4.8) k/uL Monocytes # (0-1.0) k/uL Eosinophils # (0-0.7) k/uL Basophils # (0-0.2) k/uL Sodium (137-145) mmol/L Potassium (3.5-5.1) mmol/L Chloride (98-107) mmol/L Carbon Dioxide (22-30) mmol/L Anion Gap mmol/L BUN (7-17) mg/dL Creatinine (0.52-1.04) mg/dL Est GFR (CKD-EPI)AfAm (>60 ml/min/1.73 sqM) Est GFR (CKD-EPI)NonAf (>60 ml/min/1.73 sqM) Glucose (74-99) mg/dL Plasma Lactic Acid Ananth (0.7-2.0) mmol/L Calcium (8.4-10.2) mg/dL Total Bilirubin (0.2-1.3) mg/dL AST (14-36) U/L ALT (4-34) U/L Alkaline Phosphatase (38-126) U/L Total Protein (6.3-8.2) g/dL Albumin (3.5-5.0) g/dL Amylase (30-110) U/L Lipase (23-300) U/L Urine Color Yellow Urine Appearance Cloudy H (Clear) Urine pH 7.5 (5.0-8.0) Ur Specific [place] >1.050 H (1.001-1.035) Urine Protein 1+ H (Negative) Urine Glucose (UA) Negative (Negative) Urine Ketones Negative (Negative) Urine Blood Large H (Negative) Urine Nitrite Positive H (Negative) Urine Bilirubin Negative (Negative) Urine Urobilinogen <2.0 (<2.0) mg/dL Ur Leukocyte Esterase Large H (Negative) Urine RBC >182 H (0-5) /hpf Urine WBC >182 H (0-5) /hpf Urine WBC Clumps Occasional H (None) /hpf Ur Squamous Epith Cells 27 H (0-4) /hpf Urine Bacteria Rare H (None) /hpf Urine Mucus Rare H (None) /hpf Disposition Clinical Impression: Pyelonephritis, Sepsis Disposition: ADMITTED IP TO THIS [facility] Condition: Serious Is patient prescribed a controlled substance at d/c from ED?: No Referrals: Daisy Rosen DO [Primary Care Provider] - 1-2 days
[2024-03-16] MEDS: ONDANSETRON 4 MG/2 ML VIAL IVP STA (23:25)
[2024-03-16] MEDS: MORPHINE SULFATE 4 MG/ML SYRINGE IVP STA (23:52)
[2024-03-17 01:05] LABS: Appearance,Urine Cloudy (Clear); Bacteria,Urine Rare /hpf; Bilirubin,Urine Negative (Negative); Blood,Urine Large (Negative); Color,Urine Yellow; Glucose,Urine (UA) Negative (Negative); Ketones,Urine Negative (Negative); Leukocyte Esterase,Urine Large (Negative); Mucus,Urine Rare /hpf; Nitrite,Urine Positive (Negative); PH, Urine 7.5 (5.0-8.0); Protein,Urine 1+ (Negative); RBC,Urine >182 /hpf (0-5); Squamous Epithelial Cell,Urine 27 /hpf (0-4); Urobilinogen,Urine <2.0 mg/dL (<2.0); WBC,Urine >182 /hpf (0-5)
[2024-03-17 01:41] LABS: Specific Gravity,Urine >1.050 (1.001-1.035)
[2024-03-17] MEDS: MORPHINE SULFATE 4 MG/ML SYRINGE IVP STA (01:52)
[2024-03-17] MEDS: GENTAMICIN 80 MG in SODIUM CHLORIDE 0.9% 100 ML IVPB ONE (04:20)
[2024-03-17] MEDS: HYDROmorphone 0.5 MG/0.5 ML SYRINGE IVP STA (04:29)
[2024-03-17] MEDS: GENTAMICIN IN NACL ISO-OSM PMX 80 MG in SALINE 1 100ML.BAG IVPB STA (04:33)
--- NOTE | 2024-03-17 04:36 | CT ---
EXAM: CT Abdomen and Pelvis With Intravenous Contrast CLINICAL HISTORY: ITS.REASON CT Reason: LLQ pain TECHNIQUE: Axial computed tomography images of the abdomen and pelvis with intravenous contrast. CTDI is 50.9 mGy and DLP is 2526.1 mGy-cm. This CT exam was performed using one or more of the following dose reduction techniques: automated exposure control, adjustment of the mA and/or kV according to patient size, and/or use of iterative reconstruction technique. COMPARISON: No relevant prior studies available. FINDINGS: Lung bases: Unremarkable. No mass. No consolidation. Mediastinum: Small esophageal hiatal hernia. ABDOMEN: Liver: Unremarkable. No mass. Gallbladder and bile ducts: Cholecystectomy changes. No ductal dilation. Pancreas: Unremarkable. No mass. No ductal dilation. Spleen: Unremarkable. No splenomegaly. Adrenals: Unremarkable. No mass. Kidneys and ureters: Obstructive 2 mm calculus within the right distal ureter and not visualized on product safety technician imaging) with upstream mild left renal hydronephrosis with perinephric stranding, periureteral stranding, and delayed left nephrogram. Stomach and bowel: Tethering of bowel loops along the anterior abdomen which may relate to adhesions. No obstruction. No mucosal thickening. PELVIS: Appendix: No findings to suggest acute appendicitis. Bladder: Diffuse bladder wall thickening with adjacent stranding. Findings can be seen with concurrent cystitis. Consider correlation with laboratory values. Reproductive: Hysterectomy changes. ABDOMEN and PELVIS: Intraperitoneal space: Unremarkable. No free air. No significant fluid collection. Bones/joints: Degenerative changes in the spine. No acute fracture. No dislocation. Soft tissues: Diastasis recti. Vasculature: Infrarenal IVC filter in situ. Collaterals along the anterior abdomen. No abdominal aortic aneurysm. Lymph nodes: Unremarkable. No enlarged lymph nodes. IMPRESSION: 1. Obstructive 2 mm calculus within the right distal ureter and not visualized on product safety technician imaging) with upstream mild left renal hydronephrosis with perinephric stranding, periureteral stranding, and delayed left nephrogram. 2. Diffuse bladder wall thickening with adjacent stranding. Findings can be seen with concurrent cystitis. Consider correlation with laboratory values. 3. No other acute findings. 4. Incidental findings as described.
[2024-03-17] MEDS ORDERED: HYDROmorphone 0.5 MG/0.5 ML SYRINGE IVP PRN (04:43)
[2024-03-17] MEDS ORDERED: NALOXONE 0.4 MG/ML 1 ML VIAL IV PRN (04:43)
[2024-03-17] MEDS: SODIUM CHLORIDE 0.9% 1,000 ML IV SCH (05:25)
[2024-03-17] MEDS: SODIUM CHLORIDE 0.9% 1,000 ML IV STA (06:00)
[2024-03-17] MEDS: ACETAMINOPHEN IV (For NPO) 1,000 MG in EMPTY BAG 1 BAG IVPB ONE (06:14)
[2024-03-17] MEDS: ACETAMINOPHEN TAB 500 MG TAB PO STA (06:56)
--- NOTE | 2024-03-17 08:49 | P.GSCN ---
History of Present Illness Consult date: 03/17/24 History of present illness: 78-year-old female with multiple medical illnesses was brought to the emergency room because of left lower quadrant pain nausea and vomiting. She had a urinalysis that looked infected. Her white count was elevated at 14.9. She had a computed tomography scan identifying a probable 2 mm distal left ureteral stone with proximal hydronephrosis. She is admitted for IV fluids antibiotics and urologic consultation. Review of Systems All systems: negative - Constitutional Denies fever, Denies weight loss - EENT Eyes: denies blurred vision Ears, nose, mouth and throat: Denies dysphagia - Cardiovascular Denies chest pain, Denies shortness of breath - Respiratory Denies cough, Denies 7 - Gastrointestinal Reports as per HPI - Genitourinary Genitourinary: Denies dysuria, Denies hematuria - Integumentary Denies rash, Denies unusual bruising - Neurological Denies headaches, Denies syncope - Hematologic/Lymphatic Denies easy bleeding, Denies easy bruising Past Medical History Past Medical History: Deep Vein Thrombosis (DVT), Eye Disorder, GERD/Reflux, Hyperlipidemia, Hypertension, Memory Impairment, Osteoarthritis (OA), Pulmonary Embolus (PE), Renal Disease Additional Past Medical History / Comment(s): Fall 5 days ago with head trauma, has frontal hematoma, chronic oseomylitis R femur/R total knee with infection with surgery/ 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 MDRO Source:: ESBL-urine; VRE-rt foot Past Surgical History: Hysterectomy, Joint Replacement, Orthopedic Surgery, Tubal Ligation Additional Past Surgical History / Comment(s): Sternocleidomastoidectomy (right), right shoulder rotator cuff, rectocele/cystocele, right foot - Varma's neuroma/hammer toe, left outer forearm arthroscopy and shortening left ulna - plates and screws inserted, right wrist bundle of nerves , right knee arthroscopy/realignment of tendon/tibia/kneecap, R femur rods, R tibia with screws, 07-20-13 right knee replacement/removal and antibiotic spacer placed, 08-10-13 large hematoma removed, BL vitrectomies, BL cataract surgery, right right femur benign tumor removed, left foot bone spur, EGD, colonoscopies,. Right AKA done on Feb 13 per Pt of this year. Past Anesthesia/Blood Transfusion Reactions: Postoperative Nausea & Vomiting (PONV) Additional Past Anesthesia/Blood Transfusion Reaction / Comm: no complications with prior blood transfusion Past Psychological History: Anxiety, Depression Smoking Status: Never smoker Past Alcohol Use History: None Reported Past Drug Use History: None Reported - Past Family History Brother(s) Family Medical History: Cancer, Congestive Heart Failure (CHF) Additional Family Medical History / Comment(s): Heart problems, CABG, oral CA, pacemaker/defib. Father Family Medical History: Congestive Heart Failure (CHF), Hyperlipidemia, Hypertension, Myocardial Infarction (CT) Additional Family Medical History / Comment(s): at 97 years old. Mother Family Medical History: Congestive Heart Failure (CHF), CVA/TIA Additional Family Medical History / Comment(s): Pacemaker - January 16 at age 94 a few days after CVA. Medications and Allergies Home Medications Medication Instructions Recorded Confirmed Type allopurinoL [Zyloprim] 300 mg PO HS@209908/21/14 11/21/22 History Multivitamins, Thera [Multivitamin 1 tab PO DAILY@0900 11/17/15 11/21/22 History (formulary)] Pravastatin Sodium [Pravachol] 20 mg PO HS@209902/02/18 11/21/22 History PARoxetine HCL [Paxil] 30 mg PO BID@0900,209903/27/18 11/21/22 History Calcium Carbonate/Vitamin D3 1 tab PO BID@0900,209903/18/19 11/21/22 History [Calcium 600-Vit D3 10 mcg (400 Iu)] ondansetron HCL [Zofran] 4 mg PO Q6H PRN 03/18/19 11/21/22 History Cyanocobalamin [Vitamin B-12] 500 mcg PO DAILY@0900 06/18/19 11/21/22 History Ferrous Sulfate [Feosol] 325 mg PO DAILY@1400 06/18/19 11/21/22 History Folic Acid 1 mg PO HS@209906/18/19 11/21/22 History Magnesium Oxide 400 mg PO BID@0900,209906/18/19 11/21/22 History Pantoprazole Sodium [Protonix] 40 mg PO DAILY@0600 06/18/19 11/21/22 History Acetaminophen Tab [Tylenol] 500 mg PO Q6HR PRN 07/10/21 11/21/22 History Acetaminophen Tab [Tylenol] 650 mg PO Q4H PRN 07/10/21 11/21/22 History Calcium Carbonate [Tums] 1,000 mg PO Q6H PRN 07/10/21 11/21/22 History Cetirizine HCl 10 mg PO HS@209907/10/21 11/21/22 History Denosumab [Prolia] 60 mg SQ Q180D 07/10/21 11/21/22 History Fenofibrate Nanocrystallized 145 mg PO HS@209907/10/21 11/21/22 History [Tricor] Fluticasone Nasal [place] [Flonase 1 spray EA NOSTRIL BID@0900,209907/10/21 11/21/22 History Nasal [place]] Pyridoxine [Vitamin B-6] 50 mg PO DAILY@0900 07/10/21 11/21/22 History Vit C/E/Zn/Coppr/Lutein/Zeaxan 1 cap PO BID@0900,209907/10/21 11/21/22 History [Preservision Areds 2 Softgel] diphenhydrAMINE HCL [Benadryl] 25 mg PO Q6H PRN 07/10/21 11/21/22 History Docusate [Colace] 100 mg PO HS@209911/21/22 11/21/22 History Fluticasone Propionate 110 Mcg 1 puff INHALATION RT-BID@0900,209911/21/22 11/21/22 History [Flovent 110 Mcg Inhaler] Furosemide [Lasix] 20 mg PO Q48H 11/21/22 11/21/22 History Ipratropium/Albuter 20-100Mcg 2 puff INHALATION RT-QID PRN 11/21/22 11/21/22 H istory [Combivent Respimat 20-100Mcg Inhaler] Mupirocin 2% Oint [Bactroban 2% 1 applic TOPICAL HS@2100 11/21/22 11/21/22 History Oint] Triamcinolone 0.1% Cream [Kenalog 1 applicatio TOPICAL BID@0900,1700 11/21/22 11/21/22 History 0.1% Cream] Triamcinolone 0.1% Cream [Kenalog 1 applicatio TOPICAL Q48H PRN 11/21/22 11/21/22 History 0.1% Cream] Apixaban [Eliquis] 5 mg PO BID #0 tab 11/27/22 Rx Artificial Tears-Hypromellose 1 drops BOTH EYES QID PRN ml 11/27/22 Rx [Artificial Tear Drops] LORazepam [Ativan] 0.5 mg PO HS@2100 #3 tab 11/27/22 Rx LORazepam [Ativan] 0.5 mg PO HS@2100 3 Days #3 tab 11/27/22 Rx Metoprolol Tartrate [Lopressor] 12.5 mg PO BID tab 11/27/22 Rx predniSONE [Deltasone] 20 mg PO DAILY tab 11/27/22 Rx Allergies Allergy/AdvReac Type Severity Reaction Status Date / Time adhesive Allergy Rash/Hives Verified 11/21/22 14:27 carbamazepine [From Tegretol] Allergy Rash/Hives Verified 11/21/22 14:27 carisoprodol [From Soma] Allergy lowers b/p Verified 11/21/22 14:27 quickly & passes out corn Allergy Diarrhea Verified 11/21/22 14:27 doxycycline calcium Allergy Rash/Hives Verified 11/21/22 14:27 [From Vibramycin] doxycycline hyclate Allergy Rash/Hives,vomited Verified 11/21/22 14:27 [From Vibramycin] blood doxycycline monohydrate Allergy Rash/Hives,vomited Verified 11/21/22 14:27 [From Vibramycin] blood erythromycin base Allergy Rash/Hives,vomited Verified 11/21/22 14:27 [From E-Mycin] blood hydrocodone bitartrate Allergy abdominal Verified 11/21/22 14:27 [From Vicodin] pain, diarrhea NSAIDS (Non-Steroidal Allergy Swelling Verified 11/21/22 14:27 Anti-Inflamma piroxicam [From Feldene] Allergy Swelling Verified 11/21/22 14:27 ceftriaxone [From Rocephin] AdvReac Rash/Hives Verified 11/21/22 14:27 ciprofloxacin [From Cipro] AdvReac Nausea & Verified 11/21/22 14:27 Vomiting wheat AdvReac Diarrhea Verified 11/21/22 14:27 Surgical - Exam Vital Signs Temp Pulse Resp BP Pulse Ox 97.9 F 97 18 153/97 94 L 03/16/24 21:48 03/16/24 21:48 03/16/24 21:48 03/16/24 21:48 03/16/24 21:48 - General moderate pain, obese - Cardiovascular tachycardic - Abdomen Abdomen: soft, tender - Psychiatric oriented to time, oriented to person, oriented to place, speech is normal, memory intact Results - Labs 03/16/24 21:54 03/16/24 21:54 Abnormal Lab Results - Last 24 Hours (Table) 03/16/24 03/16/24 03/17/24 Range/Units 21:54 21:54 00:15 WBC 14.9 H (3.8-10.6) k/uL Neutrophils # 12.8 H (1.3-7.7) k/uL Sodium 136 L (137-145) mmol/L BUN 23 H (7-17) mg/dL Glucose 113 H (74-99) mg/dL AST 48 H (14-36) U/L Urine Appearance Cloudy H (Clear) Ur Specific [place] >1.050 H (1.001-1.035) Urine Protein 1+ H (Negative) Urine Blood Large H (Negative) Urine Nitrite Positive H (Negative) Ur Leukocyte Esterase Large H (Negative) Urine RBC >182 H (0-5) /hpf Urine WBC >182 H (0-5) /hpf Urine WBC Clumps Occasional H (None) /hpf Ur Squamous Epith Cells 27 H (0-4) /hpf Urine Bacteria Rare H (None) /hpf Urine Mucus Rare H (None) /hpf Diabetes panel 03/16/24 Range/Units 21:54 Sodium 136 L (137-145) mmol/L Potassium 4.6 (3.5-5.1) mmol/L Chloride 104 (98-107) mmol/L Carbon Dioxide 27 (22-30) mmol/L BUN 23 H (7-17) mg/dL Creatinine 0.88 (0.52-1.04) mg/dL Glucose 113 H (74-99) mg/dL Calcium 9.7 (8.4-10.2) mg/dL AST 48 H (14-36) U/L ALT 21 (4-34) U/L Alkaline Phosphatase 112 (38-126) U/L Total Protein 7.0 (6.3-8.2) g/dL Albumin 4.2 (3.5-5.0) g/dL Calcium panel 03/16/24 Range/Units 21:54 Calcium 9.7 (8.4-10.2) mg/dL Albumin 4.2 (3.5-5.0) g/dL Pituitary panel 03/16/24 Range/Units 21:54 Sodium 136 L (137-145) mmol/L Potassium 4.6 (3.5-5.1) mmol/L Chloride 104 (98-107) mmol/L Carbon Dioxide 27 (22-30) mmol/L BUN 23 H (7-17) mg/dL Creatinine 0.88 (0.52-1.04) mg/dL Glucose 113 H (74-99) mg/dL Calcium 9.7 (8.4-10.2) mg/dL Adrenal panel 03/16/24 Range/Units 21:54 Sodium 136 L (137-145) mmol/L Potassium 4.6 (3.5-5.1) mmol/L Chloride 104 (98-107) mmol/L Carbon Dioxide 27 (22-30) mmol/L BUN 23 H (7-17) mg/dL Creatinine 0.88 (0.52-1.04) mg/dL Glucose 113 H (74-99) mg/dL Calcium 9.7 (8.4-10.2) mg/dL Total Bilirubin 0.7 (0.2-1.3) mg/dL AST 48 H (14-36) U/L ALT 21 (4-34) U/L Alkaline Phosphatase 112 (38-126) U/L Total Protein 7.0 (6.3-8.2) g/dL Albumin 4.2 (3.5-5.0) g/dL - Imaging CT scan - abdomen: report reviewed, image reviewed CT scan - pelvis: report reviewed, image reviewed Assessment and Plan Assessment: prescient: Left ureteral calculus with obstruction, urinary infection. Recommendations: The patient will be given antibiotics IV fluids. She'll need a stent later today in the left ureter to relieve the obstruction to drain the infected urine. She'll be made nothing by mouth.
[2024-03-17] MEDS: PANTOPRAZOLE 40 MG/10 ML VIAL IV SCH (08:54)
[2024-03-17] MEDS ORDERED: IPRATROPIUM-ALBUTEROL 3 ML NEB INHALATION PRN (10:11)
[2024-03-17] MEDS ORDERED: DOCUSATE 100 MG CAP PO PRN (10:11)
[2024-03-17] MEDS ORDERED: ARTIFICIAL TEARS-HYPROMELLOSE DROPS 15 ML BTL BOTH EYES PRN (10:11)
--- NOTE | 2024-03-17 10:20 | P.HPIM ---
History of Present Illness H&P Date: 03/17/24 Maria Teresa Celeste, is a 78-year-old female patient who presented to the ER with concerns of left quadrant abdominal pain with nausea and vomiting patient is a long-term resident at [facility]. Patient has a past medical history of DVT, GERD, hyperlipidemia, hypertension, osteoarthritis, pulmonary embolism, complicated right femur infection and knee replacement requiring amputation history of renal failure requiring dialysis. Abdomen pelvis CT completed showing obstructive 2 mm calculus within the right distal ureter with upstream mild left renal hydronephrosis. Diffuse bladder wall thickening with adjacent stranding. UA positive for urinary tract infection. White blood cell 14.9. At this time patient will be admitted patient started on IV gentamicin due to multiple drug allergies infectious disease services consulted urology services consulted Review of Systems Please refer to HPI otherwise unremarkable Past Medical History Past Medical History: Deep Vein Thrombosis (DVT), Eye Disorder, GERD/Reflux, Hyperlipidemia, Hypertension, Memory Impairment, Osteoarthritis (OA), Pulmonary Embolus (PE), Renal Disease Additional Past Medical History / Comment(s): Fall 5 days ago with head trauma, has frontal hematoma, chronic oseomylitis R femur/R total knee with infection with surgery/ 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 History of Any Multi-Drug Resistant Organisms: ESBL, VRE Date of last positivie culture/infection: 03/10/24-ESBL; 08/2013-VRE MDRO Source:: ESBL-urine; VRE-rt foot Past Surgical History: Hysterectomy, Joint Replacement, Orthopedic Surgery, Tubal Ligation Additional Past Surgical History / Comment(s): Sternocleidomastoidectomy (right), right shoulder rotator cuff, rectocele/cystocele, right foot - Varma's neuroma/hammer toe, left outer forearm arthroscopy and shortening left ulna - plates and screws inserted, right wrist bundle of nerves , right knee arthroscopy/realignment of tendon/tibia/kneecap, R femur rods, R tibia with screws, 07-20-13 right knee replacement/removal and antibiotic spacer placed, 08-10-13 large hematoma removed, BL vitrectomies, BL cataract surgery, right right femur benign tumor removed, left foot bone spur, EGD, colonoscopies,. Right AKA done on Feb 13 per Pt of this year. Past Anesthesia/Blood Transfusion Reactions: Postoperative Nausea & Vomiting (PONV) Additional Past Anesthesia/Blood Transfusion Reaction / Comment(s): no complications with prior blood transfusion Past Psychological History: Anxiety, Depression Smoking Status: Never smoker Past Alcohol Use History: None Reported Past Drug Use History: None Reported - Past Family History Brother(s) Family Medical History: Cancer, Congestive Heart Failure (CHF) Additional Family Medical History / Comment(s): Heart problems, CABG, oral CA, pacemaker/defib. Father Family Medical History: Congestive Heart Failure (CHF), Hyperlipidemia, Hypertension, Myocardial Infarction ([place]) Additional Family Medical History / Comment(s): at 97 years old. Mother Family Medical History: Congestive Heart Failure (CHF), CVA/TIA Additional Family Medical History / Comment(s): Pacemaker - January 16 at age 94 a few days after CVA. Medications and Allergies Home Medications Medication Instructions Recorded Confirmed Type allopurinoL [Zyloprim] 300 mg PO HS@199908/21/14 03/17/24 History Pravastatin Sodium [Pravachol] 20 mg PO HS@199902/02/18 03/17/24 History Cyanocobalamin [Vitamin B-12] 500 mcg PO DAILY@0800 06/18/19 03/17/24 History Ferrous Sulfate [Feosol] 325 mg PO DAILY@00 06/18/19 03/17/24 History Folic Acid 1 mg PO HS@199906/18/19 03/17/24 History Magnesium Oxide 400 mg PO Q12HR@08,199906/18/19 03/17/24 History Acetaminophen Tab [Tylenol] 650 mg PO Q4H PRN 07/10/21 03/17/24 History Calcium Carbonate [Tums] 1,000 mg PO Q6H PRN 07/10/21 03/17/24 History Pyridoxine [Vitamin B-6] 50 mg PO DAILY@79907/10/21 03/17/24 History Vit C/E/Zn/Coppr/Lutein/Zeaxan 1 cap PO Q12HR@08,199907/10/21 03/17/24 History [Preservision Areds 2 Softgel] Docusate [Colace] 100 mg PO Q12HR PRN 11/21/22 03/17/24 History Furosemide [Lasix] 20 mg PO Q2D@79911/21/22 03/17/24 History Ipratropium/Albuter 20-100Mcg 2 puff INHALATION RT-Q6H PRN 11/21/22 03/17/24 H istory [Combivent Respimat 20-100Mcg Inhaler] Apixaban [Eliquis] 5 mg PO Q12HR@08,199903/17/24 03/17/24 History Artificial Tears-Hypromellose 1 drops BOTH EYES Q6H PRN 03/17/24 03/17/24 History [Artificial Tear Drops] Calcium 600mg W/Vitamin D3(Unknown 1 tab PO Q12HR@799,199903/17/24 03/17/24 History Dose) DULoxetine HCL [Cymbalta] 60 mg PO DAILY@79903/17/24 03/17/24 History Fluticasone Furoate [Arnuity 1 puff INHALATION RT-DAILY@79903/17/24 03/17/24 History Ellipta] Isosorbide Mononitrate ER [Imdur] 30 mg PO DAILY@79903/17/24 03/17/24 History LORazepam [Ativan] 0.5 mg PO HS@199903/17/24 03/17/24 History Lactobacillus Acidophilus 1 cap PO BID@799,199903/17/24 03/17/24 History [Acidophilus] Loperamide HCl [Imodium A-D] 2 - 4 mg PO Q1H PRN MDD 4 tabs 03/17/24 03/17/24 History Menthol [Biofreeze] 1 applic TOPICAL Q6H PRN MDD 03/17/24 03/17/24 History lumbar back Metoprolol Tartrate [Lopressor] 12.5 mg PO Q12HR@0800,199903/17/24 03/17/24 History Omeprazole [PriLOSEC] 20 mg PO DAILY@0800 03/17/24 03/17/24 History Pimecrolimus [Elidel] 1 applic TOPICAL HS 03/17/24 03/17/24 History Promethazine HCl 25 mg PO ONETIME 03/17/24 03/17/24 History Sennosides [Senokot] 17.2 mg PO DAILY@0800 03/17/24 03/17/24 History diphenhydrAMINE & Zinc Cream 1 applic TOPICAL Q12H 03/17/24 03/17/24 History [Benadryl Cream] hydrOXYzine HCL 10 mg PO Q12HR@0800,199903/17/24 03/17/24 History traMADol HCL 50 mg PO ONETIME 03/17/24 03/17/24 History Allergies Allergy/AdvReac Type Severity Reaction Status Date / Time adhesive Allergy Rash/Hives Verified 03/17/24 09:51 carbamazepine [From Tegretol] Allergy Rash/Hives Verified 03/17/24 09:51 carisoprodol [From Soma] Allergy lowers b/p Verified 03/17/24 09:51 quickly & passes out corn Allergy Diarrhea Verified 03/17/24 09:51 doxycycline calcium Allergy Rash/Hives Verified 03/17/24 09:51 [From Vibramycin] doxycycline hyclate Allergy Rash/Hives,vomited Verified 03/17/24 09:51 [From Vibramycin] blood doxycycline monohydrate Allergy Rash/Hives,vomited Verified 03/17/24 09:51 [From Vibramycin] blood erythromycin base Allergy Rash/Hives,vomited Verified 03/17/24 09:51 [From E-Mycin] blood hydrocodone bitartrate Allergy abdominal Verified 03/17/24 09:51 [From Vicodin] pain, diarrhea NSAIDS (Non-Steroidal Allergy Swelling Verified 03/17/24 09:51 Anti-Inflamma piroxicam [From Feldene] Allergy Swelling Verified 03/17/24 09:51 ceftriaxone [From Rocephin] AdvReac Rash/Hives Verified 03/17/24 09:51 ciprofloxacin [From Cipro] AdvReac Nausea & Verified 03/17/24 09:51 Vomiting wheat AdvReac Diarrhea Verified 03/17/24 09:51 Physical Exam Vitals: Vital Signs Temp Pulse Resp BP Pulse Ox 03/17/24 06:23 129 H 21 176/87 96 03/17/24 05:49 97.9 F 138 H 22 175/84 96 03/17/24 05:25 135 H 22 179/87 94 L 03/17/24 05:02 97.6 F 18 184/97 96 03/17/24 03:27 92 16 150/85 97 03/17/24 02:36 81 18 156/84 95 03/17/24 00:15 103 H 18 166/86 95 03/16/24 21:48 97.9 F 97 18 153/97 94 L Intake and Output 03/16/24 03/17/24 03/17/24 22:59 06:59 14:59 Other: Weight 107.501 kg Head normocephalic Neck supple Lungs clear to auscultation bilaterally no wheezing or crackles Heart regular rate and rhythm S1-S2, no rub or gallop Abdomen is soft nontender nondistended positive bowel sounds no hepatosp lenomegaly Extremities no edema Neuro alert and orientated to 3 Results CBC & Chem 7: 03/16/24 21:54 03/16/24 21:54 Labs: Abnormal Lab Results - Last 24 Hours (Table) 03/16/24 03/16/24 03/17/24 Range/Units 21:54 21:54 00:15 WBC 14.9 H (3.8-10.6) k/uL Neutrophils # 12.8 H (1.3-7.7) k/uL Sodium 136 L (137-145) mmol/L BUN 23 H (7-17) mg/dL Glucose 113 H (74-99) mg/dL AST 48 H (14-36) U/L Urine Appearance Cloudy H (Clear) Ur Specific [place] >1.050 H (1.001-1.035) Urine Protein 1+ H (Negative) Urine Blood Large H (Negative) Urine Nitrite Positive H (Negative) Ur Leukocyte Esterase Large H (Negative) Urine RBC >182 H (0-5) /hpf Urine WBC >182 H (0-5) /hpf Urine WBC Clumps Occasional H (None) /hpf Ur Squamous Epith Cells 27 H (0-4) /hpf Urine Bacteria Rare H (None) /hpf Urine Mucus Rare H (None) /hpf Assessment and Plan Assessment: 1. Left ureteral calculus with obstruction 2. Urinary tract infection 3. Multiple drug allergies 4. History of osteomyelitis status post right right knee angioplasty requiring AKA in 2019 5. History of DVT and PE 6. Remote history of renal failure requiring dialysis 7. History of macular degeneration 8. History of GERD 9. History of essential hypertension 10. History of anxiety and depression DVT prophylaxis Eliquis. GI prophylax Protonix Urology and infectious disease services consulted Patient was started on IV gentamicin Repeat labs ordered Time with Patient: Greater than 30 (Greater than 60% of the total time spent in counseling and coordination of care)
[2024-03-17] MEDS: METOPROLOL TARTRATE 12.5 MG TAB PO SCH (11:26)
[2024-03-17] MEDS: IV FLUID CONTINUATION 1,000 ML IV ONE (15:16)
[2024-03-17] MEDS ORDERED: fentaNYL (PF) 50 MCG/ML 2 ML AMP ONE (15:55)
[2024-03-17] MEDS ORDERED: PROPOFOL 10 MG/ML 20 ML VIAL IV ONE (15:55)
[2024-03-17] MEDS: SODIUM CHLORIDE 0.9% 100 ML with GENTAMICIN 80 MG IV ONE (15:58)
--- NOTE | 2024-03-17 16:31 | P.OP ---
Date of Procedure: 03/17/24 Preoperative Diagnosis: Ureteral stone Postoperative Diagnosis: Same Procedure(s) Performed: Cystoscopy and a left stent Implants: 6 [place] by 26 cm stent to the left ureter Anesthesia: MAC Surgeon: Jacinto Grande Estimated Blood Loss (ml): 1 Pathology: none sent Condition: stable Disposition: PACU Indications for Procedure: 78-year-old female with history of a 2 mm left-sided distal ureteral stone, causing hydronephrosis and a UTI. Patient is tachycardic. Discussed with her and her son given the UTI and the obstructing stone I do recommend proceeding with stent insertion. Risk benefit and rationale was discussed Description of Procedure: Patient brought to the operating room, sedation was induced. She was prepped and draped in sterile fashion and placed in a dorsolithotomy position. Cystoscopy fitted with a 21 [place] sheath was inserted per urethra, cystoscopy was performed which showed no abnormality within the bladder. Attention was then carried to the left ureteral orifice which was intubated with a sensor wire. The wire was advanced under fluoroscopy into the kidney. Next a ureteral stent was passed over the wire, the proximal curl was realized on fluoroscopy and the distal curl was visualized using cystoscope. Cloudy urine drained from the collecting system. The bladder was emptied at the end of the case. Patient tolerated procedure was taken to recovery in stable condition
--- NOTE | 2024-03-17 16:49 | FL ---
EXAMINATION TYPE: FL guidance operating room DATE OF EXAM: 03/17/2024 4:38 PM COMPARISON: Pre Operative Images if available both CT/MRI or plain film CLINICAL INDICATION: Female, 78 years old with history of STENT PLACEMENT; TECHNIQUE: FL guidance operating room, multiple fluoroscopic images provided for procedure. Total fluoroscopy time: 3.3 seconds Total submitted images to PACS: 1 DAP: 0.4535 mGym2 Gycm2 uGym2 cGycm2 or equivalent. FINDINGS: Multiple intraoperative fluoroscopic images were taken resulting in ureteral stent placement with sup erior pigtail in appropriate position projecting over the renal pelvis. No immediate intraoperative c omplication. Multilevel degeneration changes throughout the spine. IMPRESSION: 1. No evidence for intraoperative complication. 2. Please see the operative/procedural note for further details. [facility], , 03/17/2024 4:47 PM
[2024-03-17] MEDS: CALCIUM CARB-VIT D 500 MG-5 MCG TAB PO SCH (20:48)
[2024-03-17] MEDS: allopurinoL 300 MG TAB PO SCH (20:48)
[2024-03-17] MEDS: MAGNESIUM OXIDE 400 MG TAB PO SCH (20:49)
[2024-03-17] MEDS: LACTOBACILLUS ACIDOPHILUS/PECT 1 EACH CAPSULE PO SCH (20:49)
[2024-03-17] MEDS: PRAVASTATIN SODIUM 20 MG TAB PO SCH (20:49)
[2024-03-17] MEDS: FOLIC ACID 1 MG TAB PO SCH (20:49)
[2024-03-17] MEDS: APIXABAN 5 MG TAB PO SCH (20:53)
[2024-03-17] MEDS: hydrOXYzine HCL 10 MG TAB PO SCH (21:19)
--- NOTE | 2024-03-17 21:46 | P.CONS ---
History of Present Illness - Reason for Consult Consult date: 03/17/24 Pyelonephritis Requesting physician: Gage Gastelum - Chief Complaint Flank pain and vomiting x 1 day - History of Present Illness Patient is a 78-year-old female with a past medical history significant for hypertension hyperlipidemia reflux memory impairment osteo arthritis [facility] resident with the patient has been sent to the hospital for evaluation of left lower quadrant abdominal pain with associated nausea and vomiting that apparently has been going on for a day before the patient has been brought into the hospital patient did have a history of kidney stones on presentation to the hospital patient was afebrile no fever have been recorded subsequently patient was mildly tachycardic but not hypotensive mildly hypoxic currently on 2 L nasal cannula oxygen she did have a white count of 14.9 with a left shift creatinine 0.88 electrolytes has been normal urine has been positive culture not done blood culture has been obtained patient did have abdominal pelvis CT we did shows obstructive calculus within the right distal ureter diffuse bladder wall thickening patient subsequently has been evaluated by urology and the patient is status post left ureteral stent placement patient did receive a dose of gentamicin with her multiple antibiotic allergies infectious disease was consulted for further management patient has been complaining of mostly weakness no energy denies having any headache or chest pain shortness with or cough pain to the flank area is mostly dull aching to sharp moderate intense without any radiation with this is nausea vomiting no diarrhea Review of Systems Positive point and negatives has been mentioned in the HPI, complete review of systems was performed and all other systems are negative Past Medical History Past Medical History: Deep Vein Thrombosis (DVT), Eye Disorder, GERD/Reflux, Hyperlipidemia, Hypertension, Memory Impairment, Osteoarthritis (OA), Pulmonary Embolus (PE), Renal Disease Additional Past Medical History / Comment(s): Fall 5 days ago with head trauma, has frontal hematoma, chronic oseomylitis R femur/R total knee with infection with surgery/ 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 MDRO Source:: ESBL-urine; VRE-rt foot Past Surgical History: Hysterectomy, Joint Replacement, Orthopedic Surgery, Tubal Ligation Additional Past Surgical History / Comment(s): Sternocleidomastoidectomy (right), right shoulder rotator cuff, rectocele/cystocele, right foot - Varma's neuroma/hammer toe, left outer forearm arthroscopy and shortening left ulna - plates and screws inserted, right wrist bundle of nerves , right knee arthroscopy/realignment of tendon/tibia/kneecap, R femur rods, R tibia with screws, 07-20-13 right knee replacement/removal and antibiotic spacer placed, 08-10-13 large hematoma removed, BL vitrectomies, BL cataract surgery, right right femur benign tumor removed, left foot bone spur, EGD, colonoscopies,. Right AKA done on Feb 13 per Pt of this year. Past Anesthesia/Blood Transfusion Reactions: Postoperative Nausea & Vomiting (PONV) Additional Past Anesthesia/Blood Transfusion Reaction / Comm: no complications with prior blood transfusion Past Psychological History: Anxiety, Depression Smoking Status: Never smoker Past Alcohol Use History: None Reported Past Drug Use History: None Reported - Past Family History Brother(s) Family Medical History: Cancer, Congestive Heart Failure (CHF) Additional Family Medical History / Comment(s): Heart problems, CABG, oral CA, pacemaker/defib. Father Family Medical History: Congestive Heart Failure (CHF), Hyperlipidemia, Hypertension, Myocardial Infarction (MT) Additional Family Medical History / Comment(s): at 97 years old. Mother Family Medical History: Congestive Heart Failure (CHF), CVA/TIA Additional Family Medical History / Comment(s): Pacemaker - January 16 at age 94 a few days after CVA. Medications and Allergies Home Medications Medication Instructions Recorded Confirmed Type allopurinoL [Zyloprim] 300 mg PO HS@199908/21/14 03/17/24 History Pravastatin Sodium [Pravachol] 20 mg PO HS@199902/02/18 03/17/24 History Cyanocobalamin [Vitamin B-12] 500 mcg PO DAILY@79906/18/19 03/17/24 History Ferrous Sulfate [Feosol] 325 mg PO DAILY@79906/18/19 03/17/24 History Folic Acid 1 mg PO HS@199906/18/19 03/17/24 History Magnesium Oxide 400 mg PO Q12HR@799,199906/18/19 03/17/24 History Acetaminophen Tab [Tylenol] 650 mg PO Q4H PRN 07/10/21 03/17/24 History Calcium Carbonate [Tums] 1,000 mg PO Q6H PRN 07/10/21 03/17/24 History Pyridoxine [Vitamin B-6] 50 mg PO DAILY@79907/10/21 03/17/24 History Vit C/E/Zn/Coppr/Lutein/Zeaxan 1 cap PO Q12HR@08,199907/10/21 03/17/24 History [Preservision Areds 2 Softgel] Docusate [Colace] 100 mg PO Q12HR PRN 11/21/22 03/17/24 History Furosemide [Lasix] 20 mg PO Q2D@79911/21/22 03/17/24 History Ipratropium/Albuter 20-100Mcg 2 puff INHALATION RT-Q6H PRN 11/21/22 03/17/24 History [Combivent Respimat 20-100Mcg Inhaler] Apixaban [Eliquis] 5 mg PO Q12HR@08,199903/17/24 03/17/24 History Artificial Tears-Hypromellose 1 drops BOTH EYES Q6H PRN 03/17/24 03/17/24 History [Artificial Tear Drops] Calcium 600mg W/Vitamin D3(Unknown 1 tab PO Q12HR@799,199903/17/24 03/17/24 History Dose) DULoxetine HCL [Cymbalta] 60 mg PO DAILY@79903/17/24 03/17/24 History Fluticasone Furoate [Arnuity 1 puff INHALATION RT-DAILY@79903/17/24 03/17/24 History Ellipta] Isosorbide Mononitrate ER [Imdur] 30 mg PO DAILY@0800 03/17/24 03/17/24 History LORazepam [Ativan] 0.5 mg PO HS@199903/17/24 03/17/24 History Lactobacillus Acidophilus 1 cap PO BID@08,199903/17/24 03/17/24 History [Acidophilus] Loperamide HCl [Imodium A-D] 2 - 4 mg PO Q1H PRN MDD 4 tabs 03/17/24 03/17/24 History Menthol [Biofreeze] 1 applic TOPICAL Q6H PRN MDD 03/17/24 03/17/24 History lumbar back Metoprolol Tartrate [Lopressor] 12.5 mg PO Q12HR@0800,199903/17/24 03/17/24 History Omeprazole [PriLOSEC] 20 mg PO DAILY@0800 03/17/24 03/17/24 History Pimecrolimus [Elidel] 1 applic TOPICAL HS 03/17/24 03/17/24 History Promethazine HCl 25 mg PO DAILY PRN 03/17/24 03/17/24 History Sennosides [Senokot] 17.2 mg PO DAILY@0800 03/17/24 03/17/24 History diphenhydrAMINE & Zinc Cream 1 applic TOPICAL Q12H 03/17/24 03/17/24 History [Benadryl Cream] hydrOXYzine HCL 10 mg PO Q12HR@0800,199903/17/24 03/17/24 History traMADol HCL 50 mg PO ONETIME 03/17/24 03/17/24 History Allergies Allergy/AdvReac Type Severity Reaction Status Date / Time adhesive Allergy Rash/Hives Verified 03/17/24 09:51 carbamazepine [From Tegretol] Allergy Rash/Hives Verified 03/17/24 09:51 carisoprodol [From Soma] Allergy lowers b/p Verified 03/17/24 09:51 quickly & passes out corn Allergy Diarrhea Verified 03/17/24 09:51 doxycycline calcium Allergy Rash/Hives Verified 03/17/24 09:51 [From Vibramycin] doxycycline hyclate Allergy Rash/Hives,vomited Verified 03/17/24 09:51 [From Vibramycin] blood doxycycline monohydrate Allergy Rash/Hives,vomited Verified 03/17/24 09:51 [From Vibramycin] blood erythromycin base Allergy Rash/Hives,vomited Verified 03/17/24 09:51 [From E-Mycin] blood hydrocodone bitartrate Allergy abdominal Verified 03/17/24 09:51 [From Vicodin] pain, diarrhea NSAIDS (Non-Steroidal Allergy Swelling Verified 03/17/24 09:51 Anti-Inflamma piroxicam [From Feldene] Allergy Swelling Verified 03/17/24 09:51 ceftriaxone [From Rocephin] AdvReac Rash/Hives Verified 03/17/24 09:51 ciprofloxacin [From Cipro] AdvReac Nausea & Verified 03/17/24 09:51 Vomiting wheat AdvReac Diarrhea Verified 03/17/24 09:51 Physical Exam Vitals: Vital Signs Temp Pulse Pulse Resp BP BP Pulse Ox 03/17/24 08:55 97.4 F L 122 H 20 121/89 96 03/17/24 06:23 129 H 21 176/87 96 03/17/24 05:49 97.9 F 138 H 22 175/84 96 03/17/24 05:25 135 H 22 179/87 94 L 03/17/24 05:02 97.6 F 18 184/97 96 03/17/24 03:27 92 16 150/85 97 03/17/24 02:36 81 18 156/84 95 03/17/24 00:15 103 H 18 166/86 95 03/16/24 21:48 97.9 F 97 18 153/97 94 L Intake and Output 03/16/24 03/17/24 03/17/24 22:59 06:59 14:59 Other: Weight 107.501 kg GENERAL DESCRIPTION: Elderly female lying in bed, no distress. No tachypnea or accessory muscle of respiration use. HEENT: Shows Pallor , no scleral icterus. Oral mucous membrane is dry. NECK: Trachea central, no thyromegaly. LUNGS: Unlabored breathing. Clear to auscultation anteriorly. No wheeze or crackle. HEART: S1, S2, regular rate and rhythm. No loud murmur ABDOMEN: Soft, no tenderness , EXTREMITIES: No edema of feet. SKIN: No rash, no masses palpable. NEUROLOGICAL: The patient is lethargic but arousable, mood and affect normal. Results CBC & Chem 7: 03/16/24 21:54 03/16/24 21:54 Labs: Abnormal Lab Results - Last 24 Hours (Table) 03/16/24 03/16/24 03/17/24 Range/Units 21:54 21:54 00:15 WBC 14.9 H (3.8-10.6) k/uL Neutrophils # 12.8 H (1.3-7.7) k/uL Sodium 136 L (137-145) mmol/L BUN 23 H (7-17) mg/dL Glucose 113 H (74-99) mg/dL AST 48 H (14-36) U/L Urine Appearance Cloudy H (Clear) Ur Specific [place] >1.050 H (1.001-1.035) Urine Protein 1+ H (Negative) Urine Blood Large H (Negative) Urine Nitrite Positive H (Negative) Ur Leukocyte Esterase Large H (Negative) Urine RBC >182 H (0-5) /hpf Urine WBC >182 H (0-5) /hpf Urine WBC Clumps Occasional H (None) /hpf Ur Squamous Epith Cells 27 H (0-4) /hpf Urine Bacteria Rare H (None) /hpf Urine Mucus Rare H (None) /hpf Assessment and Plan (1) Allergy to multiple antibiotics Current Visit: Yes Status: Acute Code(s): Z88.1 - ALLERGY STATUS TO OTHER ANTIBIOTIC AGENTS SNOMED Code(s): 501167961 (2) Pyelonephritis Current Visit: Yes Status: Acute Code(s): N12 - TUBULO-INTERSTITIAL NEPHRITIS, NOT SPCF ACUTE OR CHRONIC SNOMED Code(s): 87725924 (3) Sepsis Current Visit: Yes Status: Acute Code(s): A41.9 - SEPSIS, UNSPECIFIED ORGANISM SNOMED Code(s): 62813136 Plan: 1patient [facility] with sepsis in this patient who did have tachycardia elevated white count meeting criteria for SIRS source is likely complicated UTI and this patient did have evidence of hydronephrosis requiring cystoscopy and ureteral stent placement also diffuse bladder wall thickening likely from enteric gram-negative pathogen 2-patient with multiple antibiotic ALLERGIES that would limit the number of antibiotic safe to use 3-I will start the patient on Azactam 2 g every 8 hours pending culture finalization We will follow on clinical condition and cultures to further adjust medication if needed Thank you for this consultation we will follow the patient along with you Dictation was produced using [employer] software. please excuse any grammatical, word or spelling errors. Time with Patient: Greater than 30
[2024-03-17] MEDS: AZTREONAM 2 GM in SODIUM CHLORIDE 0.9% 100 ML IVPB SCH (22:01)
[2024-03-17] MEDS: LORazepam 0.5 MG TAB PO SCH (22:17)
[2024-03-18 05:59] LABS: Appearance,Urine Clear (Clear); Bacteria,Urine Rare /hpf; Bilirubin,Urine Negative (Negative); Blood,Urine Large (Negative); Color,Urine Light Red; Glucose,Urine (UA) Negative (Negative); Ketones,Urine Trace (Negative); Leukocyte Esterase,Urine Small (Negative); Nitrite,Urine Negative (Negative); Protein,Urine 2+ (Negative); RBC,Urine >182 /hpf (0-5); Specific Gravity,Urine 1.025 (1.001-1.035); Squamous Epithelial Cell,Urine 1 /hpf (0-4); Urobilinogen,Urine <2.0 mg/dL (<2.0); WBC,Urine 73 /hpf (0-5)
[2024-03-18 07:13] LABS: Basophils % (A) 0 %; Eosinophils % (A) 0 %; HCT 46.2 % (34.0-46.0); HGB 14.5 gm/dL (11.4-16.0); Hypochromasia Moderate; Lymphocytes # (A) 0.9 k/uL (1.0-4.8); Lymphocytes % (A) 5 %; MCH 31.7 pg (25.0-35.0); MCHC 31.4 g/dL (31.0-37.0); Macrocytosis Slight; Mean Platelet Volume 7.5; Monocytes # (A) 0.8 k/uL (0-1.0); Monocytes % (A) 5 %; Neutrophils # (A) 14.6 k/uL (1.3-7.7); Neutrophils % (A) 88 %; Platelet Count 230 k/uL (150-450); RBC 4.58 m/uL (3.80-5.40); RDW 13.4 % (11.5-15.5); WBC 16.5 k/uL (3.8-10.6)
[2024-03-18 07:24] LABS: ALT 28 U/L (4-34); African American GFR (CKD) 77 (>60 ml/min/1.73 sqM); Albumin 3.9 g/dL (3.5-5.0); Anion Gap 11 mmol/L; Blood Urea Nitrogen 21 mg/dL (7-17); Calcium 9.4 mg/dL (8.4-10.2); Carbon Dioxide 21 mmol/L (22-30); Chloride 108 mmol/L (98-107); Glucose 121 mg/dL (74-99); Non-African American GFR(CKD) 67 (>60 ml/min/1.73 sqM); Sodium 140 mmol/L (137-145); Total Bilirubin 0.9 mg/dL (0.2-1.3); Total Protein 6.7 g/dL (6.3-8.2)
[2024-03-18 07:34] LABS: Potassium 4.9 mmol/L (3.5-5.1)
[2024-03-18 07:35] LABS: AST 45 U/L (14-36); Alkaline Phosphatase 91 U/L (38-126)
[2024-03-18 07:49] LABS: MCV 100.8 fL (80.0-100.0)
[2024-03-18] MEDS ORDERED: NON FORMULARY DRUG (Omeprazole 20 MG Capsule.Dr) PO SCH (08:00)
[2024-03-18] MEDS: CYANOCOBALAMIN 500 MCG TAB PO SCH (09:06)
[2024-03-18] MEDS: DULoxetine HCL 60 MG CAPSULE.DR PO SCH (09:07)
[2024-03-18] MEDS: FERROUS SULFATE 325 MG TAB PO SCH (09:07)
[2024-03-18] MEDS: ISOSORBIDE MONONITRATE ER 30 MG TAB.ER.24H PO SCH (09:07)
[2024-03-18] MEDS: FLUTICASONE 44 MCG INHALER INHALATION SCH (09:36)
--- NOTE | 2024-03-18 10:15 | P.PN ---
Subjective Progress Note Date: 03/18/24 The patient is in the hospital with an obstructing left ureteral stone and pyonephrosis. SHe had a stent placed yesterday in the left ureter. Objective - Vital Signs Vital signs: Vital Signs Temp 97.7 F 03/18/24 04:00 Pulse 105 H 03/18/24 04:00 Resp 16 03/18/24 04:00 BP 135/82 03/18/24 04:00 Pulse Ox 94 L 03/18/24 04:00 FiO2 Intake & Output 03/17/24 03/18/24 03/18/24 18:59 06:59 18:59 Intake Total 1202 600 Output Total 205 Balance 997 600 Weight 107.501 kg 70 kg Intake: IV 302 Intake, IV Titration 900 100 Amount Aztreonam 2 gm In Sodium 100 Chloride 0.9% 100 ml @ 33 .3 mls/hr IVPB Q8HR [facility] Rx#:[id number] Sodium Chloride 0.9% 1, 900 000 ml @ 130 mls/hr IV . [facility] Rx#:[id number] Oral 500 Output: Urine 200 Estimated Blood Loss 5 Other: Voiding Method Incontinent Incontinent External Catheter External Catheter # Voids 1 # Bowel Movements 0 - Labs CBC & Chem 7: 03/18/24 06:55 03/18/24 06:55 Labs: Abnormal Lab Results - Last 24 Hours (Table) 03/18/24 Range/Units 05:15 Urine Protein 2+ H (Negative) Urine Ketones Trace H (Negative) Urine Blood Large H (Negative) Ur Leukocyte Esterase Small H (Negative) Urine RBC >182 H (0-5) /hpf Urine WBC 73 H (0-5) /hpf Urine Bacteria Rare H (None) /hpf Assessment and Plan Assessment: Impression: sp left ureteral stent for obstructing stone and pyonephrosis. Plan: the patient will need a stone and stent removal in a couple of weeks after the uti is treated.I will reassess the stones in the left kidney to clarify whether I might want to do a percutaneous nephrostolithotomy at the same time or in the future. The patient however when she was seen in consultation this year declined the percutaneous nephrostolithotomy
--- NOTE | 2024-03-18 10:18 | P.PN ---
Subjective Progress Note Date: 03/18/24 Maria Teresa Celeste, is a 78-year-old female patient who presented to the ER with concerns of left quadrant abdominal pain with nausea and vomiting patient is a long-term resident at [facility]. Patient has a past medical history of DVT, GERD, hyperlipidemia, hypertension, osteoarthritis, pulmonary embolism, complicated right femur infection and knee replacement requiring amputation history of renal failure requiring dialysis. Abdomen pelvis CT completed showing obstructive 2 mm calculus within the right distal ureter with upstream mild left renal hydronephrosis. Diffuse bladder wall thickening with adjacent stranding. UA positive for urinary tract infection. White blood cell 14.9. At this time patient will be admitted patient started on IV gentamicin due to multiple drug allergies infectious disease services consulted urology services consulted On 03/18/2024 patient is alert and oriented x 3. Patient underwent ureteral stent placement with Dr. Chandra yesterday 03/17/2024. Patient reports some improvement with pain. Patient remains on IV antibiotics. Infectious disease services are following. Current vital signs temp 98.5, heart rate 105, respiratory rate 18, blood pressure 153/97 with a pulse ox of 97% on 2 L. Patient denies chest pain or shortness of breath. Patient denies nausea vomiting or diarrhea. Patient denies any urinary burning or frequency Objective - Vital Signs Vital signs: Vital Signs Temp 98.5 F 03/18/24 08:00 Pulse 105 H 03/18/24 08:00 Resp 18 03/18/24 08:00 BP 153/97 03/18/24 08:00 Pulse Ox 97 03/18/24 08:00 FiO2 Intake & Output 03/17/24 03/18/24 03/18/24 18:59 06:59 18:59 Intake Total 1202 600 Output Total 205 325 Balance 997 600 -325 Weight 107.501 kg 70 kg Intake: IV 302 Intake, IV Titration 900 100 Amount Aztreonam 2 gm In Sodium 100 Chloride 0.9% 100 ml @ 33 .3 mls/hr IVPB Q8HR [facility] Rx#:[id number] Sodium Chloride 0.9% 1, 900 000 ml @ 130 mls/hr IV . Q7H42M [facility] Rx#:[id number] Oral 500 Output: Urine 200 325 Estimated Blood Loss 5 Other: Voiding Method Incontinent Incontinent External Catheter External Catheter # Voids 1 # Bowel Movements 0 - Labs CBC & Chem 7: 03/18/24 06:55 03/18/24 06:55 Labs: Abnormal Lab Results - Last 24 Hours (Table) 03/18/24 03/18/24 03/18/24 Range/Units 05:15 06:55 06:55 WBC 16.5 H (3.8-10.6) k/uL Hct 46.2 H (34.0-46.0) % MCV 100.8 H D (80.0-100.0) fL Neutrophils # 14.6 H (1.3-7.7) k/uL Lymphocytes # 0.9 L (1.0-4.8) k/uL Chloride 108 H (98-107) mmol/L Carbon Dioxide 21 L (22-30) mmol/L BUN 21 H (7-17) mg/dL Glucose 121 H (74-99) mg/dL AST 45 H (14-36) U/L Urine Protein 2+ H (Negative) Urine Ketones Trace H (Negative) Urine Blood Large H (Negative) Ur Leukocyte Esterase Small H (Negative) Urine RBC >182 H (0-5) /hpf Urine WBC 73 H (0-5) /hpf Urine Bacteria Rare H (None) /hpf Assessment and Plan Assessment: 1. Left ureteral calculus with obstruction 2. Urinary tract infection 3. Multiple drug allergies 4. History of osteomyelitis status post right right knee angioplasty requiring AKA in 2019 5. History of DVT and PE 6. Remote history of renal failure requiring dialysis 7. History of macular degeneration 8. History of GERD 9. History of essential hypertension 10. History of anxiety and depression DVT prophylaxis Eliquis. GI prophylax Protonix Urology and infectious disease services consulted Patient was started on IV gentamicin Repeat labs ordered
[2024-03-18] MEDS: ACETAMINOPHEN TAB 325 MG TAB PO PRN (16:18)
[2024-03-19 03:42] LABS: Glucose,Whole Blood 79 mg/dL (70-110)
[2024-03-19] MEDS: DEXTROSE 50% SYRINGE 50 ML IVP STA (04:43)
--- NOTE | 2024-03-19 05:50 | P.PN ---
Subjective Progress Note Date: 03/18/24 Principal diagnosis: Reason for follow-up is complicated UTI Patient is a 78-year-old female with a past medical history significant for hypertension hyperlipidemia reflux memory impairment osteoarthritis snf resident with the patient has been sent to the [facility] for evaluation of left lower quadrant abdominal pain with associated nausea and vomiting, patient has been diagnosed with complicated UTI status post cystoscopy and ureteral stent placement. On today's evaluation that is 03/18/2024, patient is more awake and alert, did not have any fever and denies any chills, patient is breathing comfortably on 2 L nasal cannula oxygen patient with no chest pain or cough patient did not have any abdominal pain nausea vomiting or any loose stools Patient white count 16.5 creatinine 0.84 cultures are currently pending Objective - Vital Signs Vital signs: Vital Signs Temp 98.9 F 03/19/24 03:04 Pulse 112 H 03/19/24 03:04 Resp 14 03/19/24 03:04 BP 181/79 03/19/24 03:04 Pulse Ox 92 L 03/19/24 03:04 FiO2 Intake & Output 03/18/24 03/18/24 03/19/24 06:59 18:59 06:59 Intake Total 600 240 Output Total 475 Balance 600 -235 Weight 70 kg Intake: Intake, IV Titration 100 Amount Aztreonam 2 gm In Sodium 100 Chloride 0.9% 100 ml @ 33 .3 mls/hr IVPB Q8HR [facility] Rx#:[id number] Oral 500 240 Output: Urine 475 Other: Voiding Method Incontinent Incontinent Diaper External Catheter External Catheter # Voids 1 1 # Bowel Movements 1 - Exam GENERAL DESCRIPTION: An elderly female lying in bed in no distress RESPIRATORY SYSTEM: Unlabored breathing , decreased breath sounds at bases HEART: S1 S2 regular rate and rhythm , ABDOMEN: Soft , no tenderness - Labs CBC & Chem 7: 03/18/24 06:55 03/18/24 06:55 Labs: Abnormal Lab Results - Last 24 Hours (Table) 03/18/24 03/18/24 03/18/24 Range/Units 05:15 06:55 06:55 WBC 16.5 H (3.8-10.6) k/uL Hct 46.2 H (34.0-46.0) % MCV 100.8 H D (80.0-100.0) fL Neutrophils # 14.6 H (1.3-7.7) k/uL Lymphocytes # 0.9 L (1.0-4.8) k/uL Chloride 108 H (98-107) mmol/L Carbon Dioxide 21 L (22-30) mmol/L BUN 21 H (7-17) mg/dL Glucose 121 H (74-99) mg/dL AST 45 H (14-36) U/L Urine Protein 2+ H (Negative) Urine Ketones Trace H (Negative) Urine Blood Large H (Negative) Ur Leukocyte Esterase Small H (Negative) Urine RBC >182 H (0-5) /hpf Urine WBC 73 H (0-5) /hpf Urine Bacteria Rare H (None) /hpf Microbiology - Last 24 Hours (Table) 03/17/24 09:04 Blood Culture - Preliminary Blood Assessment and Plan (1) Allergy to multiple antibiotics Current Visit: Yes Status: Acute Code(s): Z88.1 - ALLERGY STATUS TO OTHER ANTIBIOTIC AGENTS SNOMED Code(s): 103716249 (2) Pyelonephritis Current Visit: Yes Status: Acute Code(s): N12 - TUBULO-INTERSTITIAL NEPHRITIS, NOT SPCF ACUTE OR CHRONIC SNOMED Code(s): 63611955 (3) Sepsis Current Visit: Yes Status: Acute Code(s): A41.9 - SEPSIS, UNSPECIFIED ORGANISM SNOMED Code(s): 13700822 Plan: 1patient presented hospital with sepsis in this patient who did have tachycardia elevated white count meeting criteria for SIRS source is likely complicated UTI and this patient did have evidence of hydronephrosis requiring cystoscopy and ureteral stent placement also diffuse bladder wall thickening likely from enteric gram-negative pathogen 2-patient with multiple antibiotic ALLERGIES that would limit the number of antibiotic safe to use 3-patient will be treated with Azactam while waiting for the culture to finalize white count slightly up today Dictation was produced using [employer] dictation software. please excuse any grammatical, word or spelling errors. Time with Patient: Less than 30
[2024-03-19] MEDS: FUROSEMIDE 20 MG TAB PO SCH (07:17)
[2024-03-19] MEDS: ACETAMINOPHEN IV (For NPO) 1,000 MG in EMPTY BAG 1 BAG IVPB SCH (07:23)
[2024-03-19 07:34] LABS: Basophils % (A) 0 %; Eosinophils % (A) 0 %; HCT 41.8 % (34.0-46.0); HGB 13.5 gm/dL (11.4-16.0); Lymphocytes # (A) 0.5 k/uL (1.0-4.8); Lymphocytes % (A) 3 %; MCH 31.1 pg (25.0-35.0); MCHC 32.4 g/dL (31.0-37.0); MCV 96.1 fL (80.0-100.0); Mean Platelet Volume 7.5; Monocytes # (A) 0.5 k/uL (0-1.0); Monocytes % (A) 3 %; Neutrophils # (A) 13.2 k/uL (1.3-7.7); Neutrophils % (A) 92 %; Platelet Count 251 k/uL (150-450); RBC 4.35 m/uL (3.80-5.40); RDW 13.4 % (11.5-15.5); WBC 14.3 k/uL (3.8-10.6)
[2024-03-19] MEDS ORDERED: ACETAMINOPHEN IV (For NPO) 1,000 MG in EMPTY BAG 1 BAG IVPB SCH (08:00)
[2024-03-19] MEDS ORDERED: hydrALAZINE HCL 20 MG/ML 1 ML VIAL IVP PRN (08:44)
[2024-03-19] MEDS: LOSARTAN 50 MG TAB PO SCH (08:59)
[2024-03-19] MEDS: SODIUM CHLORIDE 0.9% 1,000 ML IV STA (08:59)
[2024-03-19] MEDS: METOPROLOL TARTRATE 12.5 MG TAB PO ONE (08:59)
[2024-03-19] MEDS ORDERED: METOPROLOL TARTRATE 25 MG TAB PO SCH (09:00)
--- NOTE | 2024-03-19 10:22 | P.PN ---
Subjective Progress Note Date: 03/19/24 Maria Teresa Celeste, is a 78-year-old female patient who presented to the ER with concerns of left quadrant abdominal pain with nausea and vomiting patient is a long-term resident at [facility]. Patient has a past medical history of DVT, GERD, hyperlipidemia, hypertension, osteoarthritis, pulmonary embolism, complicated right femur infection and knee replacement requiring amputation history of renal failure requiring dialysis. Abdomen pelvis CT completed showing obstructive 2 mm calculus within the right distal ureter with upstream mild left renal hydronephrosis. Diffuse bladder wall thickening with adjacent stranding. UA positive for urinary tract infection. White blood cell 14.9. At this time patient will be admitted patient started on IV gentamicin due to multiple drug allergies infectious disease services consulted urology services consulted On 03/18/2024 patient is alert and oriented x 3. Patient underwent ureteral stent placement with Dr. Chandra yesterday 03/17/2024. Patient reports some improvement with pain. Patient remains on IV antibiotics. Infectious disease services are following. Current vital signs temp 98.5, heart rate 105, respiratory rate 18, blood pressure 153/97 with a pulse ox of 97% on 2 L. Patient denies chest pain or shortness of breath. Patient denies nausea vomiting or diarrhea. Patient denies any urinary burning or frequency On 03/19/2024 patient was seen and examined on the medical floor she is alert and oriented x 3 in no apparent distress, she is still having episodes of elevated temperature, she has elevated blood pressure and tachycardia, otherwise she denies any complaints there is no headache or dizziness no chest pain no shortness of breath no cough no nausea or vomiting no abdominal pain no diarrhea and no urinary symptoms. At this time we will continue with IV antibiotics, IV fluid decreased, dose of metoprolol increased to 25 mg twice daily, losartan 50 mg p.o. daily was added to medication regimen, will continue to follow closely. Objective - Vital Signs Vital signs: Vital Signs Temp 98.9 F 03/19/24 03:04 Pulse 112 H 03/19/24 03:04 Resp 14 03/19/24 03:04 BP 181/79 03/19/24 03:04 Pulse Ox 92 L 03/19/24 03:04 FiO2 Intake & Output 03/18/24 03/19/24 03/19/24 18:59 06:59 18:59 Intake Total 240 Output Total 475 Balance -235 Weight 70 kg Intake: Oral 240 Output: Urine 475 Other: Voiding Method Incontinent Diaper External Catheter # Voids 1 1 # Bowel Movements 1 - Exam In general patient is alert and oriented x 3 in no distress HEENT head normocephalic and atraumatic Neck is supple no JVD no goiter no lymphadenopathy no carotid bruit Chest examination is clear to auscultation no crackles no wheezing Cardiac exam reveals regular heart sounds S1 and S2 no gallops no murmurs Abdomen is soft nontender no organomegaly with normal bowel sounds Extremity exam reveals 2 + Neurological examination reveals no gross focal deficits - Labs CBC & Chem 7: 03/19/24 06:18 03/18/24 06:55 Labs: Abnormal Lab Results - Last 24 Hours (Table) 03/19/24 Range/Units 06:18 WBC 14.3 H (3.8-10.6) k/uL Neutrophils # 13.2 H (1.3-7.7) k/uL Lymphocytes # 0.5 L (1.0-4.8) k/uL Microbiology - Last 24 Hours (Table) 03/17/24 09:04 Blood Culture - Preliminary Blood Assessment and Plan Assessment: 1. Left ureteral calculus with obstruction 2. Urinary tract infection 3. Multiple drug allergies 4. History of osteomyelitis status post right right knee angioplasty requiring AKA in 2019 5. History of DVT and PE 6. Remote history of renal failure requiring dialysis 7. History of macular degeneration 8. History of GERD 9. History of essential hypertension 10. History of anxiety and depression DVT prophylaxis Eliquis. GI prophylax Protonix Urology and infectious disease services consulted Patient was started on IV gentamicin Repeat labs ordered
--- NOTE | 2024-03-19 12:03 | P.PN ---
Subjective Progress Note Date: 03/19/24 the patient is in the hospital with an obstructing left ureteral stone and secondary pyelonephrosis, urinary tract infection with sepsis. She had a stent placed on 03/17/24. The culture was negative. She is still having some low- grade fevers. She feels much better. Objective - Vital Signs Vital signs: Vital Signs Temp 99.7 F H 03/19/24 08:20 Pulse 123 H 03/19/24 07:01 Resp 18 03/19/24 07:01 BP 170/84 03/19/24 07:03 Pulse Ox 92 L 03/19/24 07:01 FiO2 Intake & Output 03/18/24 03/19/24 03/19/24 18:59 06:59 18:59 Intake Total 240 Output Total 475 Balance -235 Weight 70 kg Intake: Oral 240 Output: Urine 475 Other: Voiding Method Incontinent Diaper External Catheter # Voids 1 1 # Bowel Movements 1 - Labs CBC & Chem 7: 03/19/24 06:18 03/18/24 06:55 Labs: Abnormal Lab Results - Last 24 Hours (Table) 03/19/24 Range/Units 06:18 WBC 14.3 H (3.8-10.6) k/uL Neutrophils # 13.2 H (1.3-7.7) k/uL Lymphocytes # 0.5 L (1.0-4.8) k/uL Microbiology - Last 24 Hours (Table) 03/18/24 05:15 Urine Culture - Final Urine,Voided 03/17/24 09:04 Blood Culture - Preliminary Blood Assessment and Plan Assessment: impression: Left ureteral stone with obstruction, secondary pyelonephrosis, urinary tract infection with sepsis Recommendations: After antibiotic treatment the patient will need a ureteroscopy and left stone and stent removal. She also has some smaller stones up in the kidney that I'll probably remove the same time ureteroscopically.
[2024-03-19] MEDS: METOPROLOL TARTRATE 25 MG TAB PO SCH (21:42)
--- NOTE | 2024-03-20 07:41 | P.PN ---
Subjective Progress Note Date: 03/19/24 Principal diagnosis: Reason for follow-up is complicated UTI Patient is a 78-year-old female with a past medical history significant for hypertension hyperlipidemia reflux memory impairment osteoarthritis [facility] resident with the patient has been sent to the [facility] for evaluation of left lower quadrant abdominal pain with associated nausea and vomiting, patient has been diagnosed with complicated UTI status post cystoscopy and ureteral stent placement. On today's evaluation that is 03/19/2024, Patient is afebrile patient is currently on nasal cannula oxygen and denies having any shortness of breath, the patient denies any chest pain or cough, the patient denies any nausea vomiting did not have any abdominal pain and no diarrhea. Patient with creatinine of 14.3 creatinine 0.84 blood urine has been negative so far Objective - Vital Signs Vital signs: Vital Signs Temp 98.2 F 03/19/24 20:00 Pulse 92 03/19/24 20:00 Resp 15 03/19/24 20:00 BP 152/92 03/19/24 20:00 Pulse Ox 98 03/19/24 20:00 FiO2 Intake & Output 03/19/24 03/19/24 03/20/24 06:59 18:59 06:59 Weight 70 kg Other: Voiding Method Diaper # Voids 1 4 # Bowel Movements 1 1 - Exam GENERAL DESCRIPTION: An elderly female lying in bed in no distress RESPIRATORY SYSTEM: Unlabored breathing , decreased breath sounds at bases HEART: S1 S2 regular rate and rhythm , ABDOMEN: Soft , no tenderness - Labs CBC & Chem 7: 03/19/24 06:18 03/18/24 06:55 Labs: Abnormal Lab Results - Last 24 Hours (Table) 03/19/24 Range/Units 06:18 WBC 14.3 H (3.8-10.6) k/uL Neutrophils # 13.2 H (1.3-7.7) k/uL Lymphocytes # 0.5 L (1.0-4.8) k/uL Microbiology - Last 24 Hours (Table) 03/17/24 09:04 Blood Culture - Preliminary Blood 03/18/24 05:15 Urine Culture - Final Urine,Voided Assessment and Plan (1) Allergy to multiple antibiotics Current Visit: Yes Status: Acute Code(s): Z88.1 - ALLERGY STATUS TO OTHER ANTIBIOTIC AGENTS SNOMED Code(s): 201391860 (2) Pyelonephritis Current Visit: Yes Status: Acute Code(s): N12 - TUBULO-INTERSTITIAL NEPHRITIS, NOT SPCF ACUTE OR CHRONIC SNOMED Code(s): 73869833 (3) Sepsis Current Visit: Yes Status: Acute Code(s): A41.9 - SEPSIS, UNSPECIFIED ORGANISM SNOMED Code(s): 84402165 Plan: 1patient presented hospital with sepsis in this patient who did have tachycardia elevated white count meeting criteria for SIRS source is likely complicated UTI and this patient did have evidence of hydronephrosis requiring cystoscopy and ureteral stent placement also diffuse bladder wall thickening likely from enteric gram-negative pathogen 2-patient with multiple antibiotic ALLERGIES that would limit the number of antibiotic safe to use 3-patient white count is trending down, continue with Azactam because of her multiple allergies and monitor clinical course closely Dictation was produced using [employer] dictation software. please excuse any grammatical, word or spelling errors. Time with Patient: Less than 30
[2024-03-20] MEDS: FLUTICASONE 44 MCG INHALER INHALATION SCH (08:55)
[2024-03-20 09:11] LABS: BUN/Creat Ratio 21.86 Ratio (12.00-20.00); Blood Urea Nitrogen 15.3 mg/dL (9.0-27.0); Carbon Dioxide 24.8 mmol/L (21.6-31.8); Chloride 104 mmol/L (96-109); Glucose 82 mg/dL (70-110); Potassium 3.7 mmol/L (3.5-5.5); Sodium 140 mmol/L (135-145)
[2024-03-20 09:12] LABS: ALT 20 U/L (8-44); AST 28 U/L (13-35); Albumin 3.3 g/dL (3.8-4.9); Albumin/Globulin Ratio 1.43 Ratio (1.60-3.17); Alkaline Phosphatase 94 U/L (41-126); Basophils # (A) 0.04 X 10*3/uL (0.00-0.10); Basophils % (A) 0.4 %; Calcium 9.1 mg/dL (8.7-10.3); Eosinophils # (A) 0.13 X 10*3/uL (0.04-0.35); Eosinophils % (A) 1.4 %; Globulin 2.3 g/dL (1.6-3.3); HCT 40.5 % (37.2-46.3); HGB 12.8 g/dL (12.0-15.0); Lymphocytes # (A) 1.19 X 10*3/uL (0.90-5.00); Lymphocytes % (A) 12.6 %; MCH 30.6 pg (27.0-32.0); MCHC 31.6 g/dL (32.0-37.0); MCV 96.9 FL (80.0-97.0); Mean Platelet Volume 10.8 FL (9.5-12.2); Monocytes # (A) 1.07 X 10*3/uL (0.20-1.00); Monocytes % (A) 11.4 %; NRBC Per 100 WBC 0 X 10*3/uL (0.00-0.01); Neutrophils # (A) 6.95 X 10*3/uL (1.80-7.70); Neutrophils % (A) 73.8 %; Platelet Count 232 X 10*3/uL (140-440); RBC 4.18 X 10*6/uL (4.10-5.20); RDW 13.7 % (11.5-14.5); Total Bilirubin 0.5 mg/dL (0.3-1.2); Total Protein 5.6 g/dL (6.2-8.2); WBC 9.42 X 10*3/uL (4.50-10.00)
--- NOTE | 2024-03-20 15:34 | P.PN ---
Subjective Progress Note Date: 03/20/24 Maria Teresa Celeste, is a 78-year-old female patient who presented to the ER with concerns of left quadrant abdominal pain with nausea and vomiting patient is a long-term resident at [facility]. Patient has a past medical history of DVT, GERD, hyperlipidemia, hypertension, osteoarthritis, pulmonary embolism, complicated right femur infection and knee replacement requiring amputation history of renal failure requiring dialysis. Abdomen pelvis CT completed showing obstructive 2 mm calculus within the right distal ureter with upstream mild left renal hydronephrosis. Diffuse bladder wall thickening with adjacent stranding. UA positive for urinary tract infection. White blood cell 14.9. At this time patient will be admitted patient started on IV gentamicin due to multiple drug allergies infectious disease services consulted urology services consulted On 03/18/2024 patient is alert and oriented x 3. Patient underwent ureteral stent placement with Dr. Chandra yesterday 03/17/2024. Patient reports some improvement with pain. Patient remains on IV antibiotics. Infectious disease services are following. Current vital signs temp 98.5, heart rate 105, respiratory rate 18, blood pressure 153/97 with a pulse ox of 97% on 2 L. Patient denies chest pain or shortness of breath. Patient denies nausea vomiting or diarrhea. Patient denies any urinary burning or frequency On 03/19/2024 patient was seen and examined on the medical floor she is alert and oriented x 3 in no apparent distress, she is still having episodes of elevated temperature, she has elevated blood pressure and tachycardia, otherwise she denies any complaints there is no headache or dizziness no chest pain no shortness of breath no cough no nausea or vomiting no abdominal pain no diarrhea and no urinary symptoms. At this time we will continue with IV antibiotics, IV fluid decreased, dose of metoprolol increased to 25 mg twice daily, losartan 50 mg p.o. daily was added to medication regimen, will continue to follow closely. On 03/20/2024 patient is alert and oriented x 3. Fevers have appeared to improve. Patient remains on Azactam. Patient denies chest pain or shortness of breath. Patient denies nausea vomiting or diarrhea. Patient denies any urinary burning or frequency. Current vital signs temp 98.4, heart rate 85, respiratory rate 16, blood pressure 141/76 with pulse ox of 95% on room air Objective - Vital Signs Vital signs: Vital Signs Temp 98.4 F 03/20/24 14:00 Pulse 85 03/20/24 14:00 Resp 16 03/20/24 14:00 BP 141/76 03/20/24 14:00 Pulse Ox 95 03/20/24 14:00 FiO2 Intake & Output 03/19/24 03/20/24 03/20/24 18:59 06:59 18:59 Other: Voiding Method Diaper # Voids 4 1 # Bowel Movements 1 1 - Exam In general patient is alert and oriented x 3 in no distress HEENT head normocephalic and atraumatic Neck is supple no JVD no goiter no lymphadenopathy no carotid bruit Chest examination is clear to auscultation no crackles no wheezing Cardiac exam reveals regular heart sounds S1 and S2 no gallops no murmurs Abdomen is soft nontender no organomegaly with normal bowel sounds Extremity exam reveals 2 + Neurological examination reveals no gross focal deficits - Labs CBC & Chem 7: 03/20/24 05:50 03/20/24 05:50 Labs: Abnormal Lab Results - Last 24 Hours (Table) 03/20/24 03/20/24 Range/Units 05:50 05:50 MCHC 31.6 L (32.0-37.0) g/dL Monocytes # 1.07 H (0.20-1.00) X 10*3/uL BUN/Creatinine Ratio 21.86 H (12.00-20.00) Ratio Total Protein 5.6 L (6.2-8.2) g/dL Albumin 3.3 L (3.8-4.9) g/dL Albumin/Globulin Ratio 1.43 L (1.60-3.17) Ratio Microbiology - Last 24 Hours (Table) 03/17/24 09:04 Blood Culture - Preliminary Blood Assessment and Plan Assessment: 1. Left ureteral calculus with obstruction 2. Urinary tract infection 3. Multiple drug allergies 4. History of osteomyelitis status post right right knee angioplasty requiring AKA in 2019 5. History of DVT and PE 6. Remote history of renal failure requiring dialysis 7. History of macular degeneration 8. History of GERD 9. History of essential hypertension 10. History of anxiety and depression DVT prophylaxis Eliquis. GI prophylax Protonix Urology and infectious disease services consulted Patient was started on IV gentamicin Repeat labs ordered
--- NOTE | 2024-03-21 09:11 | P.PN ---
Subjective Progress Note Date: 03/21/24 Maria Teresa Celeste, is a 78-year-old female patient who presented to the ER with concerns of left quadrant abdominal pain with nausea and vomiting patient is a long-term resident at [facility]. Patient has a past medical history of DVT, GERD, hyperlipidemia, hypertension, osteoarthritis, pulmonary embolism, complicated right femur infection and knee replacement requiring amputation history of renal failure requiring dialysis. Abdomen pelvis CT completed showing obstructive 2 mm calculus within the right distal ureter with upstream mild left renal hydronephrosis. Diffuse bladder wall thickening with adjacent stranding. UA positive for urinary tract infection. White blood cell 14.9. At this time patient will be admitted patient started on IV gentamicin due to multiple drug allergies infectious disease services consulted urology services consulted On 03/18/2024 patient is alert and oriented x 3. Patient underwent ureteral stent placement with Dr. Chandra yesterday 03/17/2024. Patient reports some improvement with pain. Patient remains on IV antibiotics. Infectious disease services are following. Current vital signs temp 98.5, heart rate 105, respiratory rate 18, blood pressure 153/97 with a pulse ox of 97% on 2 L. Patient denies chest pain or shortness of breath. Patient denies nausea vomiting or diarrhea. Patient denies any urinary burning or frequency On 03/19/2024 patient was seen and examined on the medical floor she is alert and oriented x 3 in no apparent distress, she is still having episodes of elevated temperature, she has elevated blood pressure and tachycardia, otherwise she denies any complaints there is no headache or dizziness no chest pain no shortness of breath no cough no nausea or vomiting no abdominal pain no diarrhea and no urinary symptoms. At this time we will continue with IV antibiotics, IV fluid decreased, dose of metoprolol increased to 25 mg twice daily, losartan 50 mg p.o. daily was added to medication regimen, will continue to follow closely. On 03/20/2024 patient is alert and oriented x 3. Fevers have appeared to improve. Patient remains on Azactam. Patient denies chest pain or shortness of breath. Patient denies nausea vomiting or diarrhea. Patient denies any urinary burning or frequency. Current vital signs temp 98.4, heart rate 85, respiratory rate 16, blood pressure 141/76 with pulse ox of 95% on room air On 03/21/2024 patient is alert and oriented x 3 resting comfortably in bed. Patient remains on IV Azactam. Awaiting further recommendations from infectious disease. Current vital signs temp 98.4, heart rate 86, respiratory rate 16, blood pressure 147/81 with a pulse ox of 98% on 2 L patient denies chest pain or shortness of breath. Patient denies nausea vomiting or diarrhea. Patient denies any urinary burning or frequency Dr. Gusman's group will be covering from 03/22/2024 to March 30, 2024 Objective - Vital Signs Vital signs: Vital Signs Temp 98.0 F 03/21/24 07:24 Pulse 84 03/21/24 07:24 Resp 16 03/21/24 07:24 BP 147/81 03/21/24 07:24 Pulse Ox 98 03/21/24 07:24 FiO2 Intake & Output 03/20/24 03/21/24 03/21/24 18:59 06:59 18:59 Intake Total 2730 Balance 2730 Weight 113.4 kg Intake: Oral 2730 Other: Voiding Method Diaper # Voids 3 8 - Exam In general patient is alert and oriented x 3 in no distress HEENT head normocephalic and atraumatic Neck is supple no JVD no goiter no lymphadenopathy no carotid bruit Chest examination is clear to auscultation no crackles no wheezing Cardiac exam reveals regular heart sounds S1 and S2 no gallops no murmurs Abdomen is soft nontender no organomegaly with normal bowel sounds Extremity exam reveals 2 + Neurological examination reveals no gross focal deficits - Labs CBC & Chem 7: 03/20/24 05:50 03/20/24 05:50 Labs: Abnormal Lab Results - Last 24 Hours (Table) 03/20/24 03/20/24 Range/Units 05:50 05:50 MCHC 31.6 L (32.0-37.0) g/dL Monocytes # 1.07 H (0.20-1.00) X 10*3/uL BUN/Creatinine Ratio 21.86 H (12.00-20.00) Ratio Total Protein 5.6 L (6.2-8.2) g/dL Albumin 3.3 L (3.8-4.9) g/dL Albumin/Globulin Ratio 1.43 L (1.60-3.17) Ratio Microbiology - Last 24 Hours (Table) 03/17/24 09:04 Blood Culture - Preliminary Blood Assessment and Plan Assessment: 1. Left ureteral calculus with obstruction 2. Urinary tract infection 3. Multiple drug allergies 4. History of osteomyelitis status post right right knee angioplasty requiring AKA in 2019 5. History of DVT and PE 6. Remote history of renal failure requiring dialysis 7. History of macular degeneration 8. History of GERD 9. History of essential hypertension 10. History of anxiety and depression DVT prophylaxis Eliquis. GI prophylax Protonix Urology and infectious disease services consulted Patient was started on IV gentamicin Repeat labs ordered
--- NOTE | 2024-03-21 09:47 | CDI ---
Documentation Clarification Form Date: 03/21/2024 09:24:13 AM From: Isabelle Woodward RN, CCDS Phone: [phone] Admit Date: 03/17/2024 04:44:00 AM Patient Name: Maria Teresa Celeste Visit Number: [id number] Discharge Date: ATTENTION: The Clinical Documentation Specialists (CDI) and [facility] Coding Staff appreciate your assistance in clarifying documentation. Please respond to the clarification below the line at the bottom and electronically sign. The CDI & [facility] Coding staff will review the response and follow-up if needed. Please note: Queries are made part of the Legal Health Record. If you have any questions, please contact the author of this message via ITS. Doctor. Gage Gastelum The patient has sepsis documentation in the ID Consult on 03/17/24. Based on this information and the findings below, is there an additional diagnosis that is clinically appropriate for this patient? History/Risk Factors: Deep Vein Thrombosis (DVT), Eye Disorder, GERD/Reflux, Hyperlipidemia, Hypertension Pulmonary Embolus Clinical Indicators: 78-yo- male who presents to ED complaints of left lower quadrant abdominal pain with nausea and 1 episode of vomiting. 03/17 VS: 175/84 138 22 96 % 2/L NC 03/17 Lab: WBC 14.9, Neutrophils 12.8; UA Nitrite positive, Blood Large, Leukocyte Esterase -Large Lactic acid 1.5 ED Clinical Impression: Pyelonephritis, Sepsis 03/17 ID Consult: patient presented hospital with sepsis in this patient who did have tachycardia elevated white count meeting criteria for SIRS source is likely complicated UTI and this patient did have evidence of hydronephrosis requiring cystoscopy and ureteral stent placement Treatment: Azactam 2 GM IVPB Q 8 HRS .9 NS 1,000 ML IV Bolus Is there an additional diagnosis that is clinically appropriate for this patient? [ x ] Sepsis, present on admission [ ] No additional diagnosis/not clinically significant [ ] Other, please specify [ ] Unable to determine SIRS Criteria: 2 or more of the following may indicate SIRS Temperature < 96.8F (36C) or > 101.0F (38.3C) Heart Rate > 90 bpm Respiratory Rate > 20 breaths/min or PaCO2 < 32 mmHg White Blood Cell Count > 12,000 or < 4,000 cells/mm3 or > 10% bands (Template Last Reviewed: March 2022) MTDD
[2024-03-21 10:57] LABS: Basophils # (A) 0.04 X 10*3/uL (0.00-0.10); Basophils % (A) 0.5 %; Eosinophils # (A) 0.13 X 10*3/uL (0.04-0.35); Eosinophils % (A) 1.5 %; HGB 11.9 g/dL (12.0-15.0); Lymphocytes # (A) 0.99 X 10*3/uL (0.90-5.00); Lymphocytes % (A) 11.8 %; MCH 30.6 pg (27.0-32.0); MCHC 33.1 g/dL (32.0-37.0); MCV 92.5 FL (80.0-97.0); Mean Platelet Volume 10.4 FL (9.5-12.2); Monocytes # (A) 0.95 X 10*3/uL (0.20-1.00); Monocytes % (A) 11.3 %; NRBC Per 100 WBC 0 X 10*3/uL (0.00-0.01); Neutrophils # (A) 6.26 X 10*3/uL (1.80-7.70); Neutrophils % (A) 74.4 %; Platelet Count 252 X 10*3/uL (140-440); RBC 3.89 X 10*6/uL (4.10-5.20); RDW 13.4 % (11.5-14.5); WBC 8.41 X 10*3/uL (4.50-10.00)
[2024-03-21] MEDS ORDERED: ZINC OXIDE PASTE (Z-GUARD) 1 APPLIC TOPICAL PRN (11:00)
[2024-03-21 11:06] LABS: ALT 19 U/L (8-44); AST 27 U/L (13-35); Albumin 3.3 g/dL (3.8-4.9); Albumin/Globulin Ratio 1.43 Ratio (1.60-3.17); Alkaline Phosphatase 91 U/L (41-126); BUN/Creat Ratio 19.71 Ratio (12.00-20.00); Blood Urea Nitrogen 13.8 mg/dL (9.0-27.0); Calcium 8.8 mg/dL (8.7-10.3); Carbon Dioxide 25.5 mmol/L (21.6-31.8); Chloride 104 mmol/L (96-109); Globulin 2.3 g/dL (1.6-3.3); Glucose 95 mg/dL (70-110); Potassium 3.4 mmol/L (3.5-5.5); Sodium 139 mmol/L (135-145); Total Bilirubin 0.4 mg/dL (0.3-1.2); Total Protein 5.6 g/dL (6.2-8.2)
--- NOTE | 2024-03-21 15:06 | P.PN ---
Subjective Progress Note Date: 03/20/24 Principal diagnosis: Reason for follow-up is complicated UTI Patient is a 78-year-old female with a past medical history significant for hypertension hyperlipidemia reflux memory impairment osteoarthritis halfway resident with the patient has been sent to the [facility] for evaluation of left lower quadrant abdominal pain with associated nausea and vomiting, patient has been diagnosed with complicated UTI status post cystoscopy and ureteral stent placement. On today's evaluation that is 03/20/2024, patient has been afebrile, patient is breathing comfortably and is currently on 2 L, oxygen, patient denies having any significant cough no chest pain, patient denies nausea vomiting or diarrhea and no abdominal pain. Patient white count is down to 9.42 creatinine 0.7 Objective - Vital Signs Vital signs: Vital Signs Temp 98.2 F 03/20/24 07:09 Pulse 88 03/20/24 07:09 Resp 16 03/20/24 07:09 BP 138/75 03/20/24 07:09 Pulse Ox 96 03/20/24 07:09 FiO2 Intake & Output 03/19/24 03/20/24 03/20/24 18:59 06:59 18:59 Other: Voiding Method Diaper # Voids 4 1 # Bowel Movements 1 1 - Exam GENERAL DESCRIPTION: An elderly female lying in bed in no distress RESPIRATORY SYSTEM: Unlabored breathing , decreased breath sounds at bases HEART: S1 S2 regular rate and rhythm , ABDOMEN: Soft , no tenderness - Labs CBC & Chem 7: 03/21/24 05:57 03/21/24 05:57 Labs: Abnormal Lab Results - Last 24 Hours (Table) 03/20/24 03/20/24 Range/Units 05:50 05:50 MCHC 31.6 L (32.0-37.0) g/dL Monocytes # 1.07 H (0.20-1.00) X 10*3/uL BUN/Creatinine Ratio 21.86 H (12.00-20.00) Ratio Total Protein 5.6 L (6.2-8.2) g/dL Albumin 3.3 L (3.8-4.9) g/dL Albumin/Globulin Ratio 1.43 L (1.60-3.17) Ratio Microbiology - Last 24 Hours (Table) 03/17/24 09:04 Blood Culture - Preliminary Blood 03/18/24 05:15 Urine Culture - Final Urine,Voided Assessment and Plan (1) Allergy to multiple antibiotics Current Visit: Yes Status: Acute Code(s): Z88.1 - ALLERGY STATUS TO OTHER ANTIBIOTIC AGENTS SNOMED Code(s): 252530473 (2) Pyelonephritis Current Visit: Yes Status: Acute Code(s): N12 - TUBULO-INTERSTITIAL NEPHRITIS, NOT SPCF ACUTE OR CHRONIC SNOMED Code(s): 01922910 (3) Sepsis Current Visit: Yes Status: Acute Code(s): A41.9 - SEPSIS, UNSPECIFIED ORGANISM SNOMED Code(s): 44574172 Plan: 1patient presented hospital with sepsis in this patient who did have tach ycardia elevated white count meeting criteria for SIRS source is likely complicated UTI and this patient did have evidence of hydronephrosis requiring cystoscopy and ureteral stent placement also diffuse bladder wall thickening likely from enteric gram-negative pathogen 2-patient with multiple antibiotic ALLERGIES that would limit the number of antibiotic safe to use 3-patient white count has normalized, we will treat with Azactam because of her multiple allergies and monitor clinical course closely Dictation was produced using [employer] dictation software. please excuse any grammatical, word or spelling errors. Time with Patient: Less than 30
--- NOTE | 2024-03-21 15:07 | P.PN ---
Subjective Progress Note Date: 03/21/24 Principal diagnosis: Reason for follow-up is complicated UTI Patient is a 78-year-old female with a past medical history significant for hypertension hyperlipidemia reflux memory impairment osteoarthritis [facility] resident with the patient has been sent to the [facility] for evaluation of left lower quadrant abdominal pain with associated nausea and vomiting, patient has been diagnosed with complicated UTI status post cystoscopy and ureteral stent placement. On today's evaluation that is 03/21/2024, Patient is afebrile this morning patient denies having any chest pain shortness of breath or cough, the patient is currently on room air, patient denies any abdominal pain no diarrhea no nausea no vomiting, mention feeling better Patient white count is 8.41 creatinine 0.7 Objective - Vital Signs Vital signs: Vital Signs Temp 98.0 F 03/21/24 07:24 Pulse 112 H 03/21/24 09:21 Resp 16 03/21/24 09:21 BP 147/81 03/21/24 07:24 Pulse Ox 98 03/21/24 07:24 FiO2 Intake & Output 03/20/24 03/21/24 03/21/24 18:59 06:59 18:59 Intake Total 2730 Balance 2730 Weight 113.4 kg Intake: Oral 2730 Other: Voiding Method Diaper Diaper # Voids 3 8 - Exam GENERAL DESCRIPTION: An elderly female lying in bed in no distress RESPIRATORY SYSTEM: Unlabored breathing , decreased breath sounds at bases HEART: S1 S2 regular rate and rhythm , ABDOMEN: Soft , no tenderness - Labs CBC & Chem 7: 03/21/24 05:57 03/21/24 05:57 Labs: Abnormal Lab Results - Last 24 Hours (Table) 03/21/24 03/21/24 Range/Units 05:57 05:57 RBC 3.89 L (4.10-5.20) X 10*6/uL Hgb 11.9 L (12.0-15.0) g/dL Hct 36.0 L (37.2-46.3) % Potassium 3.4 L (3.5-5.5) mmol/L Total Protein 5.6 L (6.2-8.2) g/dL Albumin 3.3 L (3.8-4.9) g/dL Albumin/Globulin Ratio 1.43 L (1.60-3.17) Ratio Microbiology - Last 24 Hours (Table) 03/17/24 09:04 Blood Culture - Preliminary Blood Assessment and Plan (1) Allergy to multiple antibiotics Current Visit: Yes Status: Acute Code(s): Z88.1 - ALLERGY STATUS TO OTHER ANTIBIOTIC AGENTS SNOMED Code(s): 060788893 (2) Pyelonephritis Current Visit: Yes Status: Acute Code(s): N12 - TUBULO-INTERSTITIAL NEPHRITIS, NOT SPCF ACUTE OR CHRONIC SNOMED Code(s): 16296340 (3) Sepsis Current Visit: Yes Status: Acute Code(s): A41.9 - SEPSIS, UNSPECIFIED ORGANISM SNOMED Code(s): 89521069 Plan: 1patient presented hospital with sepsis in this patient who did have tachycardia elevated white count meeting criteria for SIRS source is likely com plicated UTI and this patient did have evidence of hydronephrosis requiring cystoscopy and ureteral stent placement also diffuse bladder wall thickening likely from enteric gram-negative pathogen 2-patient with multiple antibiotic ALLERGIES that would limit the number of antibiotic safe to use 3-patient white count has normalized and the patient has been afebrile, 4-patient is currently being treated with Azactam because of her multiple allergies and continue supportive care Dictation was produced using [employer] dictation software. please excuse any grammatical, word or spelling errors. Time with Patient: Less than 30
[2024-03-22 09:33] LABS: Basophils # (A) 0.07 X 10*3/uL (0.00-0.10); Basophils % (A) 0.8 %; Eosinophils # (A) 0.14 X 10*3/uL (0.04-0.35); Eosinophils % (A) 1.5 %; HGB 12.3 g/dL (12.0-15.0); Lymphocytes # (A) 1.11 X 10*3/uL (0.90-5.00); Lymphocytes % (A) 12.2 %; MCH 30.2 pg (27.0-32.0); MCHC 32.4 g/dL (32.0-37.0); MCV 93.4 FL (80.0-97.0); Mean Platelet Volume 10.6 FL (9.5-12.2); Monocytes # (A) 0.76 X 10*3/uL (0.20-1.00); Monocytes % (A) 8.4 %; NRBC Per 100 WBC 0 X 10*3/uL (0.00-0.01); Neutrophils # (A) 6.94 X 10*3/uL (1.80-7.70); Neutrophils % (A) 76.3 %; Platelet Count 274 X 10*3/uL (140-440); RBC 4.07 X 10*6/uL (4.10-5.20); RDW 13.5 % (11.5-14.5); WBC 9.09 X 10*3/uL (4.50-10.00)
[2024-03-22 12:08] LABS: ALT 25 U/L (8-44); AST 37 U/L (13-35); Albumin 3.3 g/dL (3.8-4.9); Albumin/Globulin Ratio 1.43 Ratio (1.60-3.17); Alkaline Phosphatase 95 U/L (41-126); BUN/Creat Ratio 17.71 Ratio (12.00-20.00); Blood Urea Nitrogen 12.4 mg/dL (9.0-27.0); Calcium 8.7 mg/dL (8.7-10.3); Carbon Dioxide 20.7 mmol/L (21.6-31.8); Chloride 106 mmol/L (96-109); Globulin 2.3 g/dL (1.6-3.3); Glucose 105 mg/dL (70-110); Potassium 3.4 mmol/L (3.5-5.5); Sodium 142 mmol/L (135-145); Total Bilirubin 0.4 mg/dL (0.3-1.2); Total Protein 5.6 g/dL (6.2-8.2)
--- NOTE | 2024-03-22 16:03 | P.PN ---
Subjective Progress Note Date: 03/22/24 Maria Teresa Celeste, is a 78-year-old female patient who presented to the ER with concerns of left quadrant abdominal pain with nausea and vomiting patient is a long-term resident at [facility]. Patient has a past medical history of DVT, GERD, hyperlipidemia, hypertension, osteoarthritis, pulmonary embolism, complicated right femur infection and knee replacement requiring amputation history of renal failure requiring dialysis. Abdomen pelvis CT completed showing obstructive 2 mm calculus within the right distal ureter with upstream mild left renal hydronephrosis. Diffuse bladder wall thickening with adjacent stranding. UA positive for urinary tract infection. White blood cell 14.9. At this time patient will be admitted patient started on IV gentamicin due to multiple drug allergies infectious disease services consulted urology services consulted On 03/18/2024 patient is alert and oriented x 3. Patient underwent ureteral stent placement with Dr. Chandra yesterday 03/17/2024. Patient reports some improvement with pain. Patient remains on IV antibiotics. Infectious disease services are following. Current vital signs temp 98.5, heart rate 105, respiratory rate 18, blood pressure 153/97 with a pulse ox of 97% on 2 L. Patient denies chest pain or shortness of breath. Patient denies nausea vomiting or diarrhea. Patient denies any urinary burning or frequency On 03/19/2024 patient was seen and examined on the medical floor she is alert and oriented x 3 in no apparent distress, she is still having episodes of elevated temperature, she has elevated blood pressure and tachycardia, otherwise she denies any complaints there is no headache or dizziness no chest pain no shortness of breath no cough no nausea or vomiting no abdominal pain no diarrhea and no urinary symptoms. At this time we will continue with IV antibiotics, IV fluid decreased, dose of metoprolol increased to 25 mg twice daily, losartan 50 mg p.o. daily was added to medication regimen, will continue to follow closely. On 03/20/2024 patient is alert and oriented x 3. Fevers have appeared to improve. Patient remains on Azactam. Patient denies chest pain or shortness of breath. Patient denies nausea vomiting or diarrhea. Patient denies any urinary burning or frequency. Current vital signs temp 98.4, heart rate 85, respiratory rate 16, blood pressure 141/76 with pulse ox of 95% on room air On 03/21/2024 patient is alert and oriented x 3 resting comfortably in bed. Patient remains on IV Azactam. Awaiting further recommendations from infectious disease. Current vital signs temp 98.4, heart rate 86, respiratory rate 16, blood pressure 147/81 with a pulse ox of 98% on 2 L patient denies chest pain or shortness of breath. Patient denies nausea vomiting or diarrhea. Patient denies any urinary burning or frequency 03/22. Patient seen and examined. Vital signs stable. REVIEW OF SYSTEMS: CONSTITUTIONAL: No fever, no malaise,. CARDIOVASCULAR: No chest pain, no palpitations, no syncope. PULMONARY: No shortness of breath, no cough, GASTROINTESTINAL: No diarrhea, no nausea, no vomiting, no abdominal pain. NEUROLOGICAL: No headaches, no weakness, PHYSICAL EXAMINATION: GENERAL: The patient is alert and oriented x3, not in any acute distress. Well developed, well nourished. HEENT: Pupils are round and equally reacting to light. EOMI. No scleral icterus. No conjunctival pallor. Normocephalic, atraumatic. No pharyngeal erythema. No thyromegaly. CARDIOVASCULAR: S1 and S2 present. No murmurs, rubs, or gallops. PULMONARY: Chest is clear to auscultation, no wheezing or crackles. ABDOMEN: Soft, nontender, nondistended, normoactive bowel sounds. No palpable organomegaly. MUSCULOSKELETAL: No joint swelling or deformity. EXTREMITIES: No cyanosis, clubbing, or pedal edema. NEUROLOGICAL: Gross neurological examination did not reveal any focal deficits. SKIN: No rashes. Assessment and plan 1. Left ureteral calculus with obstruction 2. Urinary tract infection 3. Multiple drug allergies 4. History of osteomyelitis status post right right knee angioplasty requiring AKA in 2019 5. History of DVT and PE 6. Remote history of renal failure requiring dialysis 7. History of macular degeneration 8. History of GERD 9. History of essential hypertension 10. History of anxiety and depression Monitor vital signs Monitor CBC Monitor CMP Continue aztreonam Continue Eliquis Continue Lasix Continue losartan, Lopressor ID following Urology following Labs and medication were reviewed.. Continue same treatment. Continue with symptomatic treatment. Resume home medication. Monitor labs and vitals. DVT and GI prophylaxis. Further recommendations as per clinical course of the patient Dictation was produced using [employer] dictation software. please excuse any g rammatical, word or spelling errors. Objective - Vital Signs Vital signs: Vital Signs Temp 98.0 F 03/22/24 14:00 Pulse 87 03/22/24 14:00 Resp 18 03/22/24 14:00 BP 158/92 03/22/24 14:00 Pulse Ox 98 03/22/24 14:00 FiO2 Intake & Output 03/21/24 03/22/24 03/22/24 18:59 06:59 18:59 Other: Voiding Method Diaper Diaper # Voids 7 1 # Bowel Movements 2 - Labs CBC & Chem 7: 03/22/24 04:44 03/22/24 04:44 Labs: Abnormal Lab Results - Last 24 Hours (Table) 03/22/24 03/22/24 Range/Units 04:44 04:44 RBC 4.07 L (4.10-5.20) X 10*6/uL Immature Gran # 0.07 H (0.00-0.04) X 10*3/uL Potassium 3.4 L (3.5-5.5) mmol/L Carbon Dioxide 20.7 L (21.6-31.8) mmol/L Anion Gap 15.30 H (4.00-12.00) mmol/L AST 37 H (13-35) U/L Total Protein 5.6 L (6.2-8.2) g/dL Albumin 3.3 L (3.8-4.9) g/dL Albumin/Globulin Ratio 1.43 L (1.60-3.17) Ratio
--- NOTE | 2024-03-23 07:47 | P.PN ---
Subjective Progress Note Date: 03/22/24 Principal diagnosis: Reason for follow-up is complicated UTI Patient is a 78-year-old female with a past medical history significant for hypertension hyperlipidemia reflux memory impairment osteoarthritis care home resident with the patient has been sent to the [facility] for evaluation of left lower quadrant abdominal pain with associated nausea and vomiting, patient has been diagnosed with complicated UTI status post cystoscopy and ureteral stent placement. On today's evaluation that is 03/22/2024,the patient denies any fever or any chills, patient is breathing comfortably on room air, the patient denies chest pain shortness of breath and no significant cough, patient denies abdominal pain, no nausea vomiting or diarrhea. Patient white count is 9.09, creatinine 0.7 Objective - Vital Signs Vital signs: Vital Signs Temp 98.0 F 03/22/24 14:00 Pulse 87 03/22/24 14:00 Resp 18 03/22/24 14:00 BP 158/92 03/22/24 14:00 Pulse Ox 98 03/22/24 14:00 FiO2 Intake & Output 03/21/24 03/22/24 03/22/24 18:59 06:59 18:59 Other: Voiding Method Diaper Diaper # Voids 7 1 # Bowel Movements 2 - Exam GENERAL DESCRIPTION: An elderly female lying in bed in no distress RESPIRATORY SYSTEM: Unlabored breathing , decreased breath sounds at bases HEART: S1 S2 regular rate and rhythm , ABDOMEN: Soft , no tenderness - Labs CBC & Chem 7: 03/22/24 04:44 03/22/24 04:44 Labs: Abnormal Lab Results - Last 24 Hours (Table) 03/22/24 03/22/24 Range/Units 04:44 04:44 RBC 4.07 L (4.10-5.20) X 10*6/uL Immature Gran # 0.07 H (0.00-0.04) X 10*3/uL Potassium 3.4 L (3.5-5.5) mmol/L Carbon Dioxide 20.7 L (21.6-31.8) mmol/L Anion Gap 15.30 H (4.00-12.00) mmol/L AST 37 H (13-35) U/L Total Protein 5.6 L (6.2-8.2) g/dL Albumin 3.3 L (3.8-4.9) g/dL Albumin/Globulin Ratio 1.43 L (1.60-3.17) Ratio Assessment and Plan (1) Allergy to multiple antibiotics Current Visit: Yes Status: Acute Code(s): Z88.1 - ALLERGY STATUS TO OTHER ANTIBIOTIC AGENTS SNOMED Code(s): 291445985 (2) Pyelonephritis Current Visit: Yes Status: Acute Code(s): N12 - TUBULO-INTERSTITIAL NEPHRITIS, NOT SPCF ACUTE OR CHRONIC SNOMED Code(s): 42899617 (3) Sepsis Current Visit: Yes Status: Acute Code(s): A41.9 - SEPSIS, UNSPECIFIED ORGANISM SNOMED Code(s): 16340691 Plan: 1patient presented hospital with sepsis in this patient who did have tachycardia elevated white count meeting criteria for SIRS source is likely complicated UTI and this patient did have evidence of hydronephrosis requiring cystoscopy and ureteral stent placement also diffuse bladder wall thickening likely from enteric gram-negative pathogen 2-patient with multiple antibiotic ALLERGIES that would limit the number of antibiotic safe to use 3-patient white count has normalized and the patient has been afebrile, 4-patient will be continued on Azactam because of her multiple allergies and may consider Invanz 1 g daily for a week on discharge Dictation was produced using [employer] dictation software. please excuse any grammatical, word or spelling errors. Time with Patient: Less than 30
[2024-03-23] MEDS: ERTAPENEM 1 GM in SODIUM CHLORIDE 0.9% 50 ML IVPB SCH (08:52)
[2024-03-23 12:34] VITALS: BMI 24.9
--- NOTE | 2024-03-23 14:07 | P.DS ---
Providers Date of admission: 03/17/24 04:44 Expected date of discharge: 03/23/24 Attending physician: Gage Gastelum Consults: 03/17/24 07:49 Consult Physician Routine Consulting Provider: Paz Carr Consult Reason/Comments: pyelonephritis Do you want consulting provider notified?: Yes 03/17/24 07:50 Consult Physician Routine Consulting Provider: Mark Anderson Consult Reason/Comments: urolithiasis Do you want consulting provider notified?: Yes Primary care physician: Daisy Rosen DO Hospital Course: Discharge diagnoses; 1. Left ureteral calculus with obstruction 2. Urinary tract infection 3. Multiple drug allergies 4. History of osteomyelitis status post right right knee angioplasty requiring AKA in 2019 5. History of DVT and PE 6. Remote history of renal failure requiring dialysis 7. History of macular degeneration 8. History of GERD 9. History of essential hypertension 10. History of anxiety and depression Hospital course; Maria Teresa Celeste, is a 78-year-old female patient who presented to the ER with concerns of left quadrant abdominal pain with nausea and vomiting patient is a long-term resident at [facility]. Patient has a past medical history of DVT, GERD, hyperlipidemia, hypertension, osteoarthritis, pulmonary embolism, complicated right femur infection and knee replacement requiring amputation history of renal failure requiring dialysis. Abdomen pelvis CT completed showing obstructive 2 mm calculus within the right distal ureter with upstream mild left renal hydronephrosis. Diffuse bladder wall thickening with adjacent stranding. UA positive for urinary tract infection. White blood cell 14.9. At this time patient will be admitted patient started on IV gentamicin due to multiple drug allergies infectious disease services consulted urology services consulted On 03/18/2024 patient is alert and oriented x 3. Patient underwent ureteral stent placement with Dr. Chandra yesterday 03/17/2024. Patient reports some improvement with pain. Patient remains on IV antibiotics. Infectious disease services are following. Current vital signs temp 98.5, heart rate 105, respiratory rate 18, blood pressure 153/97 with a pulse ox of 97% on 2 L. Patient denies chest pain or shortness of breath. Patient denies nausea vomiting or diarrhea. Patient denies any urinary burning or frequency On 03/19/2024 patient was seen and examined on the medical floor she is alert and oriented x 3 in no apparent distress, she is still having episodes of elevated temperature, she has elevated blood pressure and tachycardia, otherwise she denies any complaints there is no headache or dizziness no chest pain no shortness of breath no cough no nausea or vomiting no abdominal pain no diarrhea and no urinary symptoms. At this time we will continue with IV antibiotics, IV fluid decreased, dose of metoprolol increased to 25 mg twice daily, losartan 50 mg p.o. daily was added to medication regimen, will continue to follow closely. On 03/20/2024 patient is alert and oriented x 3. Fevers have appeared to improve. Patient remains on Azactam. Patient denies chest pain or shortness of breath. Patient denies nausea vomiting or diarrhea. Patient denies any urinary burning or frequency. Current vital signs temp 98.4, heart rate 85, respiratory rate 16, blood pressure 141/76 with pulse ox of 95% on room air On 03/21/2024 patient is alert and oriented x 3 resting comfortably in bed. Patient remains on IV Azactam. Awaiting further recommendations from infectious disease. Current vital signs temp 98.4, heart rate 86, respiratory rate 16, blood pressure 147/81 with a pulse ox of 98% on 2 L patient denies chest pain or shortness of breath. Patient denies nausea vomiting or diarrhea. Patient denies any urinary burning or frequency 03/22. Patient seen and examined. Vital signs stable. 03/23. Patient seen and examined. Patient being discharged on ertapenem for 7 days per ID recommendations. PHYSICAL EXAMINATION: GENERAL: The patient is alert, ill looking HEENT: Pupils are round and equally reacting to light. EOMI. No scleral icterus. No conjunctival pallor. Normocephalic, atraumatic. No pharyngeal erythema. No thyromegaly. CARDIOVASCULAR: S1 and S2 present. No murmurs, rubs, or gallops. PULMONARY: Chest is clear to auscultation, no wheezing or crackles. ABDOMEN: Soft, nontender, nondistended, normoactive bowel sounds. No palpable organomegaly. MUSCULOSKELETAL: No joint swelling or deformity. EXTREMITIES: Right AKA NEUROLOGICAL: Gross neurological examination did not reveal any focal deficits. SKIN: No rashes. Dictation was produced using [employer] software. please excuse any grammatical, word or spelling errors. Patient Condition at Discharge: Good Plan - Discharge Summary New Discharge Prescriptions: New Losartan [Cozaar] 50 mg PO DAILY #0 tab Ertapenem [INVanz] 1 gm IVPB Q24H #7 each Metoprolol Tartrate [Lopressor] 25 mg PO BID tab Continue allopurinoL [Zyloprim] 300 mg PO HS@1999 Pravastatin Sodium [Pravachol] 20 mg PO HS@1999 Cyanocobalamin [Vitamin B-12] 500 mcg PO DAILY@0800 Folic Acid 1 mg PO HS@1999 Magnesium Oxide 400 mg PO Q12HR@0800,1999 Ferrous Sulfate [Feosol] 325 mg PO DAILY@0800 Calcium Carbonate [Tums] 1,000 mg PO Q6H PRN PRN Reason: Gerd Furosemide [Lasix] 20 mg PO Q2D@0800 Ipratropium/Albuter 20-100Mcg [Combivent Respimat 20-100Mcg Inhaler] 2 puff INHALATION RT-Q6H PRN PRN Reason: Shortness Of Breath Isosorbide Mononitrate ER [Imdur] 30 mg PO DAILY@0800 Omeprazole [PriLOSEC] 20 mg PO DAILY@0800 Sennosides [Senokot] 17.2 mg PO DAILY@0800 hydrOXYzine HCL 10 mg PO Q12HR@0800,1999 Fluticasone Furoate [Arnuity Ellipta] 1 puff INHALATION RT-DAILY@0800 Pimecrolimus [Elidel] 1 applic TOPICAL HS DULoxetine HCL [Cymbalta] 60 mg PO DAILY@0800 diphenhydrAMINE & Zinc Cream [Benadryl Cream] 1 applic TOPICAL Q12H Promethazine HCl 25 mg PO DAILY PRN PRN Reason: Nausea Acetaminophen Tab [Tylenol] 650 mg PO Q4H PRN PRN Reason: Pain Pyridoxine [Vitamin B-6] 50 mg PO DAILY@0800 Vit C/E/Zn/Coppr/Lutein/Zeaxan [Preservision Areds 2 Softgel] 1 cap PO Q12HR@0800,1999 Docusate [Colace] 100 mg PO Q12HR PRN PRN Reason: Constipation Loperamide HCl [Imodium A-D] 2 - 4 mg PO Q1H PRN MDD 4 tabs PRN Reason: Diarrhea Menthol [Biofreeze] 1 applic TOPICAL Q6H PRN MDD lumbar back PRN Reason: Pain Artificial Tears-Hypromellose [Artificial Tear Drops] 1 drops BOTH EYES Q6H PRN PRN Reason: Dry Eye(S) Lactobacillus Acidophilus [Acidophilus] 1 cap PO BID@799,1999 Calcium 600mg W/Vitamin D3(Unknown Dose) 1 tab PO Q12HR@799,1999 Apixaban [Eliquis] 5 mg PO Q12HR@799,1999 Changed LORazepam [Ativan] 0.5 mg PO HS@1999 3 Days #3 tab Discontinued Metoprolol Tartrate [Lopressor] 12.5 mg PO Q12HR@ traMADol HCL 50 mg PO ONETIME Discharge Medication List allopurinoL [Zyloprim] 300 mg PO HS@199908/21/14 [History] Pravastatin Sodium [Pravachol] 20 mg PO HS@199902/02/18 [History] Cyanocobalamin [Vitamin B-12] 500 mcg PO DAILY@0806/18/19 [History] Ferrous Sulfate [Feosol] 325 mg PO DAILY@0806/18/19 [History] Folic Acid 1 mg PO HS@199906/18/19 [History] Magnesium Oxide 400 mg PO Q12HR@799,199906/18/19 [History] Acetaminophen Tab [Tylenol] 650 mg PO Q4H PRN 07/10/21 [History] Calcium Carbonate [Tums] 1,000 mg PO Q6H PRN 07/10/21 [History] Pyridoxine [Vitamin B-6] 50 mg PO DAILY@0807/10/21 [History] Vit C/E/Zn/Coppr/Lutein/Zeaxan [Preservision Areds 2 Softgel] 1 cap PO Q12HR@799,199907/10/21 [History] Docusate [Colace] 100 mg PO Q12HR PRN 11/21/22 [History] Furosemide [Lasix] 20 mg PO Q2D@79911/21/22 [History] Ipratropium/Albuter 20-100Mcg [Combivent Respimat 20-100Mcg Inhaler] 2 puff INHALATION RT-Q6H PRN 11/21/22 [History] Apixaban [Eliquis] 5 mg PO Q12HR@799,199903/17/24 [History] Artificial Tears-Hypromellose [Artificial Tear Drops] 1 drops BOTH EYES Q6H PRN 03/17/24 [History] Calcium 600mg W/Vitamin D3(Unknown Dose) 1 tab PO Q12HR@08,199903/17/24 [History] DULoxetine HCL [Cymbalta] 60 mg PO DAILY@0803/17/24 [History] Fluticasone Furoate [Arnuity Ellipta] 1 puff INHALATION RT-DAILY@79903/17/24 [History] Isosorbide Mononitrate ER [Imdur] 30 mg PO DAILY@79903/17/24 [History] Lactobacillus Acidophilus [Acidophilus] 1 cap PO BID@799,199903/17/24 [History] Loperamide HCl [Imodium A-D] 2 - 4 mg PO Q1H PRN MDD 4 tabs 03/17/24 [History] Menthol [Biofreeze] 1 applic TOPICAL Q6H PRN MDD lumbar back 03/17/24 [History] Omeprazole [PriLOSEC] 20 mg PO DAILY@79903/17/24 [History] Pimecrolimus [Elidel] 1 applic TOPICAL HS 03/17/24 [History] Promethazine HCl 25 mg PO DAILY PRN 03/17/24 [History] Sennosides [Senokot] 17.2 mg PO DAILY@79903/17/24 [History] diphenhydrAMINE & Zinc Cream [Benadryl Cream] 1 applic TOPICAL Q12H 03/17/24 [History] hydrOXYzine HCL 10 mg PO Q12HR@799,199903/17/24 [History] Ertapenem [INVanz] 1 gm IVPB Q24H #7 each 03/23/24 [Rx] LORazepam [Ativan] 0.5 mg PO HS@1999 3 Days #3 tab 03/23/24 [Rx] Losartan [Cozaar] 50 mg PO DAILY #0 tab 03/23/24 [Rx] Metoprolol Tartrate [Lopressor] 25 mg PO BID tab 03/23/24 [Rx] Follow up Appointment(s)/Referral(s): Daisy Rosen DO [Primary Care Provider] - 1-2 days [facility] [NON-STAFF] - 1 Week Edson Coleman MD [STAFF PHYSICIAN] - 1 Week
[2024-03-23 14:47] VITALS: BP 143/83; PULSE 72; RESP 17; TEMP 98.4
--- NOTE | 2024-03-23 15:18 | P.PN ---
Subjective Progress Note Date: 03/23/24 Principal diagnosis: Reason for follow-up is complicated UTI Patient is a 78-year-old female with a past medical history significant for hypertension hyperlipidemia reflux memory impairment osteoarthritis senior care resident with the patient has been sent to the [facility] for evaluation of left lower quadrant abdominal pain with associated nausea and vomiting, patient has been diagnosed with complicated UTI status post cystoscopy and ureteral stent placement. On today's evaluation that is 03/23/2024,the patient remains to be afebrile, patient is on 2 L nasal cannula supplemental oxygen and denies any shortness of breath no chest pain or cough.Patient denies having any nausea or vomiting, no abdominal pain and no diarrhea has been reported no New labs Objective - Vital Signs Vital signs: Vital Signs Temp 98.0 F 03/23/24 06:56 Pulse 86 03/23/24 06:56 Resp 18 03/23/24 06:56 BP 143/79 03/23/24 06:56 Pulse Ox 96 03/23/24 08:48 FiO2 Intake & Output 03/22/24 03/23/24 03/23/24 18:59 06:59 18:59 Output Total 950 600 Balance -950 -600 Weight 70 kg Output: Urine 950 600 Other: Voiding Method Diaper Diaper External Catheter External Catheter - Exam GENERAL DESCRIPTION: An elderly female lying in bed in no distress RESPIRATORY SYSTEM: Unlabored breathing , decreased breath sounds at bases HEART: S1 S2 regular rate and rhythm , ABDOMEN: Soft , no tenderness - Labs CBC & Chem 7: 03/22/24 04:44 03/22/24 04:44 Labs: Microbiology - Last 24 Hours (Table) 03/17/24 09:04 Blood Culture - Final Blood Assessment and Plan (1) Allergy to multiple antibiotics Current Visit: Yes Status: Acute Code(s): Z88.1 - ALLERGY STATUS TO OTHER ANTIBIOTIC AGENTS SNOMED Code(s): 322439586 (2) Pyelonephritis Current Visit: Yes Status: Acute Code(s): N12 - TUBULO-INTERSTITIAL NEPHRITIS, NOT SPCF ACUTE OR CHRONIC SNOMED Code(s): 63025573 (3) Sepsis Current Visit: Yes Status: Acute Code(s): A41.9 - SEPSIS, UNSPECIFIED ORGANISM SNOMED Code(s): 98361098 Plan: 1patient presented hospital with sepsis in this patient who did have tachycardia elevated white count meeting criteria for SIRS source is likely complicated UTI and this patient did have evidence of hydronephrosis requiring cystoscopy and ureteral stent placement also diffuse bladder wall thickening likely from enteric gram-negative pathogen 2-patient with multiple antibiotic ALLERGIES that would limit the number of antibiotic safe to use 3-patient white count has normalized and the patient has been afebrile, patient did get a midline we will consider a 7-day course of Invanz on discharge Care has been discussed with the son who is the power of criminal attorney Dictation was produced using [employer] dictation software. please excuse any grammatical, word or spelling errors. Time with Patient: Less than 30
== END 2024-03-23 18:59 | DRG 854 ==
LOC: EC 21:46 → 3SCARD 03-17 04:44 → 4SSUR 03-18 14:46
PROVIDERS: ADMIT Internal Medicine; ATTEND Internal Medicine
PROC: 0T778DZ Dilation of Left Ureter with Intraluminal Device, Via Natural or Artificial Opening Endoscopic (ICD-10-PCS; principal; 2024-03-17 12:40)
DX: A41.9 Sepsis, unspecified organism (principal); N13.6 Pyonephrosis; Z16.12 Extended spectrum beta lactamase (ESBL) resistance; K21.9 Gastro-esophageal reflux disease without esophagitis; I10 Essential (primary) hypertension; E78.5 Hyperlipidemia, unspecified; F32.A Depression, unspecified; F41.9 Anxiety disorder, unspecified; Z79.01 Long term (current) use of anticoagulants; Z96.651 Presence of right artificial knee joint; Z86.711 Personal history of pulmonary embolism; Z86.718 Personal history of other venous thrombosis and embolism; Z88.1 Allergy status to other antibiotic agents; Z88.6 Allergy status to analgesic agent; Z88.8 Allergy status to other drugs, medicaments and biological substances; Z91.048 Other nonmedicinal substance allergy status; Z79.899 Other long term (current) drug therapy; Z87.442 Personal history of urinary calculi; Z89.611 Acquired absence of right leg above knee; Z90.710 Acquired absence of both cervix and uterus
CPT/HCPCS: 36410; 36415; 51701; 74177; 76937; 80053; 81001; 82150; 83605; 83690; 84484; 85025; 87040; 87086; 93005; 94640; 94760; 96361; 96365; 96367; 96375; 96376; 99285